=== PATIENT | female | born 1940 | race Caucasian/White ===

== ENCOUNTER 2019-07-22 08:25 | Outpatient (CLI) | payer MEDICARE, OTHER, MEDICAID, SELFPAY ==
--- NOTE | ~2019-07-22 | US_ITS ---
US retroperitoneal comp 07/22/2019 09:15 Procedure: Realtime transabdominal ultrasound of the kidneys and bladder. Indication: Renal lesion. Comparison: CT dated 01/27/2017 Findings: There is a possible right extrarenal pelvis. Otherwise right renal echotexture is normal wi thout focal mass. Right kidney measures 10.5 cm in length. There is a hypoechoic mass laterally in th e left kidney measuring 2.4 x 2.2 x 2.3 cm which is not definitive for cyst. No hydronephrosis is sathish ntified. Left kidney measures 10.7 cm. Bladder is not well distended for evaluation. Impression: 1: Hypoechoic 2.4 cm left renal mass. Recommend correlation with MRI to exclude solid component or en hancement. Reviewed, dictated and finalized at location A. [employer] Impression: 1: Hypoechoic 2.4 cm left renal mass. Recommend correlation with MRI to exclude solid component or enhancement.
== END 2019-07-22 08:26 | disposition home or self-care (01) ==
DX: N28.9 Disorder of kidney and ureter, unspecified (principal)
CPT/HCPCS: 76770

== ENCOUNTER 2019-11-16 11:41 | Outpatient (CLI) | payer MEDICARE, OTHER, MEDICAID, SELFPAY ==
--- NOTE | ~2019-11-16 | US_ITS ---
EXAMINATION: US pelvic complete DATE: 11/16/2019 12:30 INDICATION: Abnormal bleeding. History of complete hysterectomy. Comparison:Ultrasound dated 02/20/2018 TECHNIQUE: Multiple transabdominal and endovaginal sonographic images of the pelvis performed. FINDINGS: The uterus and ovaries are surgically absent. No abnormal pelvic masses or fluid collection s. IMPRESSION: 1. Unremarkable pelvic ultrasound post hysterectomy. Reviewed, dictated and finalized at location A.
[2019-11-16 12:03] LABS: Hematocrit 43.1 % (35.0-42.0); Hemoglobin 13.7 g/dL (11.7-13.8); Mean Corpuscular HGB Conc 31.8 g/dL (32.0-36.0); Mean Corpuscular Hemoglobin 31.4 pg (27.0-31.0); Mean Corpuscular Volume 98.9 fL (78.0-102.0); Mean Platelet Volume 8.2 fl (9.2-11.8); Platelet Count Result 296 K/mm3 (150-420); Red Blood Count 4.36 M/mm3 (4.20-5.40); Red Cell Distribution Width 14.1 % (11.6-14.4); White Blood Count 6.9 K/mm3 (4.8-10.8)
[2019-11-16 12:21] LABS: Add Urine Microscopic? YES; Appearance Urine Sl Cloudy (Clear); Bilirubin Urine Negative (Negative); Blood Urine 1+ (Negative); Color Urine Yellow (Yellow); Glucose Urine UA Negative (Negative); Ketones Urine Trace (Negative); Leukocyte Esterase Ur 1+ (Negative); Nitrate Urine Positive (Negative); Protein Urine 1+ (Negative); Specific Grav Ur >= 1.030 (1.010-1.020); Urobilinogen Urine 0.2 mg/dL (0.2-1.0)
[2019-11-16 12:25] LABS: INR 1.1; Prothrombin Time 11.1 Seconds (9.64-11.0)
[2019-11-16 12:31] LABS: Alanine Aminotransferase 27 U/L (14-59); Albumin Level 3.5 g/dL (3.4-5.0); Alkaline Phosphatase 103 U/L (46-116); Anion Gap 11.2 mmol/L (7-16); Aspartate Amino Transferase 23 U/L (15-37); Bilirubin,Total 0.3 mg/dL (0.00-1.00); Blood Urea Nitrogen 13 mg/dL (7-18); Calcium 8.9 mg/dL (8.5-10.1); Carbon Dioxide 31 mmol/L (21-32); Chloride 107 mmol/L (98-108); Estimated Glomerular Filt Rate > 60; Glucose 121 mg/dL (70-99); Osmolality Calculated 301 mOsm/kg (285-295); Potassium 4.2 mmol/L (3.5-5.1); Sodium 145 mmol/L (136-145); Total Protein 6.8 g/dL (6.4-8.2)
[2019-11-16 12:32] LABS: Bacteria Urine 1+ /hpf; Squamous Epithelial Cell Urine Moderate /hpf (Few); WBC Urine 16-20 /hpf (0-3)
[2019-11-16 12:33] LABS: Mucus Urine Few /lpf
[2019-11-16 13:08] LABS: BNP 187 pg/mL (0-100)
== END 2019-11-16 11:42 | disposition home or self-care (01) ==
LOC: CHSLAB 11:45
PROVIDERS: PCP Family Medicine; Visit Provider Family Medicine
DX: N93.9 Abnormal uterine and vaginal bleeding, unspecified (principal)
CPT/HCPCS: 36415; 76856; 80053; 81001; 83880; 85027; 85610

== ENCOUNTER 2019-11-26 08:19 | Outpatient (CLI) | payer MEDICARE, OTHER, MEDICAID, SELFPAY | END 2019-11-26 08:20 | disposition home or self-care (01) | PROVIDERS: PCP Family Medicine; Visit Provider Family Medicine | DX: I50.9 Heart failure, unspecified (principal) | CPT/HCPCS: 93306 ==

== ENCOUNTER 2019-12-25 06:19 | Outpatient (CLI) | payer MEDICARE, OTHER, MEDICAID, SELFPAY ==
[2019-12-25 17:27] LABS: SARS-CoV-2 RNA PCR Negative
== END 2019-12-25 06:20 | disposition home or self-care (01) ==
LOC: ANHCOVIDDT 06:20
PROVIDERS: PCP Family Medicine; Visit Provider Internal Medicine Gastroenterology
DX: Z01.812 Encounter for preprocedural laboratory examination (principal); Z11.59 Encounter for screening for other viral diseases
CPT/HCPCS: 87635; C9803; U0003

== ENCOUNTER 2019-12-27 08:49 | Outpatient (CLI) | payer MEDICARE, OTHER, MEDICAID, SELFPAY ==
--- NOTE | ~2019-12-27 | CT_ITS ---
EXAMINATION: CT abdomen wo/w con DATE: 12/27/2019 09:49 INDICATION: Left renal mass follow-up TECHNIQUE: Computed tomography (CT) of the abdomen was performed without and subsequently with 100 cc Omnipaque 350 intravenous contrast. Automated exposure control and iterative reconstruction techniqu e were employed. Exam dose: 1865.39 mGy-cm total exam DLP. COMPARISON: None. FINDINGS: Calcifications along the inferior aspect of the right breast implant. Scattered bilateral pulmonary calcified granulomas and calcified splenic granulomas, consistent with old granulomatous disease Cardiomegaly. No pericardial or pleural effusion. Small sliding hiatal hernia. Approximately 1.5 cm hepatic dome cyst. Status post cholecystectomy. No bile duct or pancreatic duct dilatation. No pancreatic mass lesion is evident. Normal splenic size. Normal morphology of the adrenal glands. There is an approximately 2.5 cm mildly septated cyst of the posteromedial aspect of the mid to upper left kidney. Several very small additional left renal cysts. Small right parapelvic renal cysts. No renal calculus or hydronephrosis of either kidney. There is prominent abdominal aortic location as well as some common iliac arterial calcifications. No abdominal aortic aneurysm. No intraperitoneal or retroperitoneal mass lesion or adenopathy or ascite s. Diverticula of the descending colon are identified. No CT evidence of diverticulitis. No bowel obstru ction, bowel wall thickening, pneumatosis or intraperitoneal free air. Small fat-containing umbilical hernia. There is prominent anterior wedging and loss of height at L1, with evidence of vertebroplasty at this level. Diffuse osteopenia. Degenerative disc disease throughout the lumbar and lumbosacral spine. There is p rominent degenerative change at the apophyseal joints with associated grade 1 anterolisthesis at L5-S 1. IMPRESSION: 2.5 cm mildly septated cysts of mid to upper left kidney; several smaller left renal cys ts and small right parapelvic renal cysts 1.5 cm hepatic cyst Diverticulosis of the descending colon Cardiomegaly Small sliding hiatal hernia Reviewed, dictated and finalized at Location A. Reviewed, dictated and finalized at location B. IMPRESSION: 2.5 cm mildly septated cysts of mid to upper left kidney; several smaller left renal cysts and small right parapelvic renal cysts 1.5 cm hepatic cyst Diverticulosis of the descending colon Cardiomegaly Small sliding hiatal hernia
[2019-12-27 09:18] LABS: Estimated Glomerular Filt Rate > 60
== END 2019-12-27 08:50 | disposition home or self-care (01) ==
PROVIDERS: PCP Family Medicine; Visit Provider Urology
DX: N28.89 Other specified disorders of kidney and ureter (principal)
CPT/HCPCS: 74170; Q9965

== ENCOUNTER 2019-12-28 03:21 | Day surgery (SDC) | payer MEDICARE, OTHER, MEDICAID, SELFPAY ==
[2019-12-21 11:56] VITALS: BMI 46.8
[2019-12-28 11:09] VITALS: BP 148/69; PULSE 77; RESP 17; TEMP 36.4; O2SAT 97
[2019-12-28] MEDS: LACTATED RINGERS 1,000 ML 150 ML IV CONT (11:16)
--- NOTE | 2019-12-28 11:44 | WPDANESEPPF ---
Anes - Initial Pre Proc Eval Procedure: Operation Date: 12/28/19 12:30 Proposed Procedures p Esophagogastroduodenoscopy - Fede Dominguez MD Date/Time: 12/28/19 11:44 Surgeon: Fede Dominguez MD Pre Op Diagnosis: Dysphagia Patient Data Age: 79 Gender: F Height: 5 ft 3 in Weight: 123.3 kg Last Vital Signs Temp 97.6 F 12/28/19 11:09 Pulse 77 12/28/19 11:09 Resp 17 12/28/19 11:09 BP 148/69 H 12/28/19 11:09 Pulse Ox 97 12/28/19 11:09 Allergies Allergy/AdvReac Type Severity Reaction Status Date / Time No Known Allergies Allergy Verified 12/28/19 11:07 Home Medications Medication Instructions Recorded Confirmed Type apixaban 5 mg tablet 5 mg PO BID #180 tablet 08/18/19 12/28/19 Rx oxybutynin chloride 5 mg 5 mg PO DAILY #90 tablet 08/26/19 12/28/19 Rx tablet,extended release 24 hr potassium chloride 10 mEq 20 meq PO DAILY #180 tablet 08/30/19 12/28/19 Rx tablet,extended release amlodipine 5 mg tablet 5 mg PO DAILY #90 tablet 10/27/19 12/28/19 Rx metoprolol succinate 100 mg 100 mg PO DAILY #90 tablet 12/06/19 12/28/19 Rx tablet,extended release 24 hr paroxetine HCl 20 mg tablet 20 mg PO DAILY #90 tablet 12/06/19 12/28/19 Rx esomeprazole magnesium [Nexium] 40 mg PO DAILY 12/21/19 12/28/19 History hydrocodone-acetaminophen 1 tablet PO BID PRN 12/21/19 12/28/19 History levothyroxine 75 mcg PO QAM 12/21/19 12/28/19 History Patient hx anesthesia problems: none Family hx anesthesia problems: none PMFSH Past Medical History Medical History (Updated 12/28/19 @ 11:44 by Waqas Blum MD) Esophageal stricture Fatty liver GERD (gastroesophageal reflux disease) History of esophageal stricture History of pulmonary embolism Hypertension Post-menopause bleeding Social History Social History Smoking status: Never smoker Gender identity (if verbalized by the patient): Female Anes - Eval Final PreProcedure Day of Procedure 12/28/19 11:44 Patient weight: morbidly obese Heart: regular rate and rhythm Lungs: clear to auscultation Airway: Mallampati scale class III Last oral intake: >/= 8 hours ASA classification: IV Emergent: no Anesthetic plan: proceed Anesthesia type and monitoring: general GIVS and standard monitoring Informed Consent: The patient's anesthetic plan and its attendant risks and benefits were discussed with the patient/family/POA. Questions were solicited and answers provided to the satisfaction of the patient/family/POA.
--- NOTE | 2019-12-28 12:22 | WPDHPUPDATE1 ---
History and Physical Update Update Date/Time: 12/28/19 12:22 History and Physical has been reviewed, including an updated exam of the patient. There are NO changes in the patient's condition. Risks, benefits, and alternatives have been discussed and questions answered. Patient agrees to proceed with procedure.
[2019-12-28 12:41] VITALS: BP 127/56; PULSE 63; RESP 26; O2SAT 98
[2019-12-28 12:51] VITALS: BP 143/62; PULSE 61; RESP 20; O2SAT 98
[2019-12-28 13:01] VITALS: BP 154/77; PULSE 61; RESP 18; O2SAT 98
== END 2019-12-28 13:10 | disposition home or self-care (01) ==
PROVIDERS: PCP Family Medicine; Visit Provider Internal Medicine Gastroenterology
PROC: 0DJ08ZZ Inspection of Upper Intestinal Tract, Via Natural or Artificial Opening Endoscopic (ICD-10-PCS; CPT 43235; principal; 2019-12-28 12:30)
DX: K21.9 Gastro-esophageal reflux disease without esophagitis (principal); K29.50 Unspecified chronic gastritis without bleeding; K44.9 Diaphragmatic hernia without obstruction or gangrene; K76.0 Fatty (change of) liver, not elsewhere classified; I10 Essential (primary) hypertension; Z86.711 Personal history of pulmonary embolism; Z79.01 Long term (current) use of anticoagulants; E66.01 Morbid (severe) obesity due to excess calories; Z68.42 Body mass index [BMI] 45.0-49.9, adult
CPT/HCPCS: 43239; 88305; J2704; J7120

== ENCOUNTER 2020-01-14 10:08 | Outpatient (CLI) | payer MEDICARE, SELFPAY ==
[2020-01-14 11:22] LABS: Blood Urea Nitrogen 15 mg/dL (7-18); Calcium 8.8 mg/dL (8.5-10.1); Carbon Dioxide 31 mmol/L (21-32); Chloride 105 mmol/L (98-108); Estimated Glomerular Filt Rate > 60; Glucose 111 mg/dL (70-99); Magnesium 1.8 mg/dL (1.8-2.4); Osmolality Calculated 295 mOsm/kg (285-295); Sodium 142 mmol/L (136-145); Thyroid Stimulating Hormone 1.63 uIU/mL (0.36-3.74)
== END 2020-01-14 10:09 | disposition home or self-care (01) ==
LOC: CHSLAB 10:10
PROVIDERS: PCP Family Medicine; Visit Provider Specialist
DX: I50.9 Heart failure, unspecified (principal); E03.9 Hypothyroidism, unspecified
CPT/HCPCS: 36415; 80048; 83735; 84436; 84443

== ENCOUNTER 2021-01-12 09:31 | Outpatient (CLI) | payer MEDICARE, MEDICAID, SELFPAY ==
--- NOTE | ~2021-01-12 | XR_ITS ---
XR chest 1V DATE: 01/12/2021 11:15 INDICATION: Shortness of breath with exertion TECHNIQUE: AP chest COMPARISON: 01/27/2017 AP chest 09/08/2015 2 view chest FINDINGS: Calcified right breast implant. Diffuse osteopenia. Bilateral glenohumeral osteoarthritis. Normal heart size. Aortic calcification. No pulmonary infiltrate or consolidation, pleural effusion or pulmonary vascular congestion or pneumo thorax is detected. Bilateral calcified hilar nodes. Scattered bilateral calcified pulmonary granulomas. Probable hiatal hernia. Diffuse osteopenia. Vertebroplasty at approximately L1. IMPRESSION: No active cardiopulmonary disease Aortic atherosclerosis Probable hiatal hernia Diffuse osteopenia Reviewed, dictated and finalized at location A.
--- NOTE | ~2021-01-12 | CT_ITS ---
EXAMINATION: CT abdomen pelvis wo/w con DATE: 01/12/2021 11:15 INDICATION: Left renal mass follow-up TECHNIQUE: Computed tomography (CT) of the abdomen and pelvis was performed without and subsequently with 100 cc Omnipaque 350 intravenous contrast. Automated exposure control and iterative reconstructi on technique were employed. Exam dose: 2378.67 mGy-cm total exam DLP. COMPARISON: 12/27/2019 CT abdomen FINDINGS: Calcified pulmonary granulomas and calcified splenic granulomas, consistent with old granul omatous disease. The lower lung zones are clear of infiltrate or consolidation. Calcified right breast implant. Moderate sliding hiatal hernia. Status post cholecystectomy. 1.5 cm hepatic cyst. No hepatic, splenic, pancreatic or adrenal space occupying mass lesion is noted otherwise. No bile duct or pancreatic duct dilatation. 2.5 cm circumscribed left renal mass with minus 4 Hounsfield units precontrast attenuation, 3 Hounsfi eld units post 7 contrast attenuation, consistent with a cyst. There are a couple of additional very small probable left renal cyst. Very small right renal cortical cyst. No other renal space occupying mass lesion is evident. No urinary tract calculus or hydroureteronephrosis. The urinary bladder is unremarkable. Status post hysterectomy. Diverticulosis of the colon; no CT evidence of diverticulitis. No bowel obstruction, bowel wall thick ening, pneumatosis or intraperitoneal free air. There is extensive calcification of the abdominal aorta. Normal caliber of the abdominal aorta; no ab dominal aortic aneurysm. No intraperitoneal or retroperitoneal or pelvic mass lesion or adenopathy or ascites. Fat-containing right inguinal hernia. Small fat-containing umbilical hernia. Vertebroplasty at burst fracture of L1. Diffuse osteopenia. Severe degenerative disc disease at L2-3 through L5-S1. There is degenerative change at the apophyseal joints with associated grade 1 anterolisthesis at L5-S 1. 2 cm duodenal diverticulum IMPRESSION: Stable 2.5 cm left renal cyst. Additional smaller bilateral renal cysts Moderate sliding hiatal hernia Status post cholecystectomy Stable 1.5 cm hepatic cyst Status post hysterectomy Diverticulosis of the colon; no CT evidence of diverticulitis Reviewed, dictated and finalized at Location A. Reviewed, dictated and finalized at location A.
[2021-01-12 10:20] LABS: Alanine Aminotransferase 31 U/L (14-59); Albumin Level 3.7 g/dL (3.4-5.0); Alkaline Phosphatase 108 U/L (46-116); Anion Gap 12 mmol/L (8-16); Aspartate Amino Transferase 17 U/L (15-37); Bilirubin,Total 0.4 mg/dL (0.00-1.00); Blood Urea Nitrogen 27 mg/dL (7-18); Carbon Dioxide 28 mmol/L (21-32); Chloride 105 mmol/L (98-108); Estimated Glomerular Filt Rate > 60; Glucose 129 mg/dL (70-99); Osmolality Calculated 307 mOsm/kg (285-295); Potassium 4.6 mmol/L (3.5-5.1); Sodium 145 mmol/L (136-145); Total Protein 6.8 g/dL (6.4-8.2)
== END 2021-01-12 09:32 | disposition home or self-care (01) ==
LOC: CHSIMG 09:51
PROVIDERS: PCP Family Medicine; Visit Provider Urology
DX: N28.89 Other specified disorders of kidney and ureter (principal)
CPT/HCPCS: 36415; 71045; 74178; 80053; Q9967

== ENCOUNTER 2021-04-10 13:49 | Outpatient (CLI) | payer MEDICARE, OTHER, SELFPAY ==
[2021-04-10 14:06] LABS: Basophils Absolute Auto 0.02 K/mm3 (0.00-0.10); Basophils Percent Auto 0.4 % (0.0-1.0); Eosinophils Percent Auto 1.8 % (1.0-6.0); Hematocrit 41.1 % (35.0-42.0); Hemoglobin 13.6 g/dL (11.7-13.8); Immature Granulocyte Absolute 0.03 K/mm3 (0.00-0.00); Immature Granulocyte Percent A 0.5 % (0.0-0.0); Lymphocytes Absolute Auto 1.53 K/mm3 (1.10-4.50); Lymphocytes Percent Auto 26.8 % (18.0-42.0); Mean Corpuscular HGB Conc 33.1 g/dL (32.0-36.0); Mean Corpuscular Hemoglobin 33.3 pg (27.0-31.0); Mean Corpuscular Volume 100.7 fL (78.0-102.0); Mean Platelet Volume 8.4 fl (9.2-11.8); Monocytes Absolute Auto 0.59 K/mm3 (0.10-0.90); Monocytes Percent Auto 10.4 % (2.0-11.0); Neutrophils Absolute Auto 3.4 K/mm3 (1.7-7.2); Neutrophils Percent Auto 60.1 % (50.0-70.0); Platelet Count Result 275 K/mm3 (150-420); Red Blood Count 4.08 M/mm3 (4.20-5.40); Red Cell Distribution Width 13.6 % (11.6-14.4); White Blood Count 5.7 K/mm3 (4.8-10.8)
[2021-04-10 14:20] LABS: INR 1.1; Prothrombin Time 11.4 Seconds (9.50-12.10)
[2021-04-10 15:08] LABS: Alanine Aminotransferase 49 U/L (14-59); Albumin Level 3.5 g/dL (3.4-5.0); Alkaline Phosphatase 111 U/L (46-116); Anion Gap 9 mmol/L (8-16); Aspartate Amino Transferase 29 U/L (15-37); Bilirubin,Total 0.3 mg/dL (0.00-1.00); Blood Urea Nitrogen 25 mg/dL (7-18); Calcium 8.5 mg/dL (8.5-10.1); Carbon Dioxide 29 mmol/L (21-32); Chloride 106 mmol/L (98-108); Estimated Glomerular Filt Rate 56; Free T4 Free Thyroxine 0.95 ng/dL (0.76-1.46); Glucose 122 mg/dL (70-99); Osmolality Calculated 303 mOsm/kg (285-295); Potassium 4.5 mmol/L (3.5-5.1); Sodium 144 mmol/L (136-145); Thyroid Stimulating Hormone 1.95 uIU/mL (0.36-3.74); Total Protein 6.4 g/dL (6.4-8.2)
== END 2021-04-10 13:50 | disposition home or self-care (01) ==
LOC: CHSLAB 13:55
PROVIDERS: PCP Nurse Practitioner Family; Visit Provider Nurse Practitioner Family
DX: E03.9 Hypothyroidism, unspecified (principal); R23.8 Other skin changes; Z79.01 Long term (current) use of anticoagulants
CPT/HCPCS: 36415; 80053; 83036; 84439; 84443; 85025; 85610

== ENCOUNTER 2021-08-03 13:57 | Outpatient (CLI) | payer MEDICARE, OTHER, MEDICAID, SELFPAY ==
--- NOTE | ~2021-08-03 | DEXA_ITS ---
Bone Density Report Name: FREDA CHILDS Age: 80 Sex: Female Ethnicity: White Date of : 1940 Indication: hyperparathyroidism; height loss; prior fracture; hysterectomy; Referring Provider: EVAN FLORENCE Study: Bone densitometry was performed. Exam Date: August 03, 2021 Accession number: [id number] Bone Density: Region BMD T-score Z-score Classification AP Spine(L2, L3, L4) 0.993 -0.8 2.0 Normal Femoral Neck (Left) 0.753 -0.9 1.5 Normal Total Hip (Left) 0.772 -1.4 0.7 Osteopenia Femoral Neck (Right) 0.848 0.0 2.3 Normal Total Hip (Right) 0.881 -0.5 1.6 Normal Femoral Neck Mean 0.800 -0.4 1.9 Normal Total Hip Mean 0.827 -0.9 1.2 Normal World Health Organization criteria for BMD impression classify patients as: Normal (T-score at or above -1.0), Osteopenia (T-score between -1.0 and -2.5), or Osteoporosis (T-score at or below -2.5). 10-year Fracture Risk: FRAX not reported because: Prior hip or vertebral fracture Clinical Information Provided by Patient: Have had a previous hip or vertebral fracture Has had a low trauma fracture Has used the following medications: Vitamin D, Calcium Has the following medical conditions: Hyperparathyroidism, Hysterectomy Patient maximum height was 66 Menopause Age: 40 No regular weight bearing exercise Onset of menses at age 13 Number of children 1 Impression: The patient has low bone mass, based on the Left Total Hip T-score. The patient has risk factors, including: previous fracture. Discussion: INCREASED RISK OF FRACTURE DUE TO HISTORY OF FRACTURE. The patient's previous fracture puts the patient at high risk of a future fracture. In untreated patients, the risk of osteoporotic fracture increases approximately two-fold for each 1.0 SD decrease in T-score. Low bone density is not the only risk factor for fracture; also consider factors such as patient's age, frailty or poor health, risk of falling, risk of injury, previous osteoporotic fracture, family history of osteoporosis, cigarette smoking, low body weight, etc. Not everyone with a low trauma fracture has osteoporosis; osteomalacia and other metabolic bone disorders should also be considered. Patients who have osteoporosis should be evaluated for specific diseases and conditions (secondary causes) that may cause or contribute to bone loss and fracture risk. National Osteoporosis Foundation (NOF) recommends pharmacologic intervention for patients with a prior hip or vertebral fracture regardless of BMD T-score. The patient should follow a healthful lifestyle (good nutrition with adequate calcium and vitamin D, and appropriate weight-bearing exercise). Follow-Up: Consider a repeat BMD and Vertebral Fracture Assessment (VFA) exam in 2 years or sooner if medically necessary
== END 2021-08-03 13:58 | disposition home or self-care (01) ==
LOC: CHSIMG 14:03
PROVIDERS: PCP Family Medicine; Visit Provider Family Medicine
DX: Z78.0 Asymptomatic menopausal state (principal); M85.80 Other specified disorders of bone density and structure, unspecified site
CPT/HCPCS: 77080

== ENCOUNTER 2021-08-21 13:40 | Outpatient (CLI) | payer MEDICARE, OTHER, MEDICAID, SELFPAY ==
--- NOTE | ~2021-08-21 | XR_ITS ---
XR wrist LT w scaphoid DATE: 08/21/2021 14:04 INDICATION: Fall one week ago. Medial left elbow pain, knot on posterior wrist. TECHNIQUE: 4 views COMPARISON: None FINDINGS: Diffuse osteopenia. There is osteoarthritis at the triscaphe and to a greater extent first carpometacarpal joint. There i s osteophytic change at the metacarpal joints and particularly at the included first interphalangeal joint. No fracture or dislocation, periosteal reaction or bone destruction. No erosive change or chondrocalcinosis. IMPRESSION: Polyarticular osteoarthritis Osteopenia Reviewed, dictated and finalized at location A. T DESK PERSON
--- NOTE | ~2021-08-21 | XR_ITS ---
XR elbow LT min 3V DATE: 08/21/2021 14:04 INDICATION: Fall one week ago. Medial left elbow pain TECHNIQUE: 4 views COMPARISON: None FINDINGS: Diffuse osteopenia. There is osteoarthritic change including prominent joint space between the capitellum and radial head as well as radial neck spurring. No fracture or dislocation or joint effusion, periosteal reaction or bone destruction. IMPRESSION: Osteoarthritis Reviewed, dictated and finalized at location A. [place] PHARMACIST IMPRESSION: Osteoarthritis
== END 2021-08-21 13:41 | disposition home or self-care (01) ==
LOC: CHSIMG 13:44
PROVIDERS: PCP Family Medicine; Visit Provider Family Medicine
DX: M25.532 Pain in left wrist (principal); M25.522 Pain in left elbow
CPT/HCPCS: 73080; 73110

== ENCOUNTER 2022-01-10 09:59 | Outpatient (CLI) | payer MEDICARE, OTHER, SELFPAY ==
--- NOTE | ~2022-01-10 | CT_ITS ---
EXAMINATION: CT abdomen pelvis wo/w con DATE: 01/10/2022 11:39 INDICATION: Kidney mass. TECHNIQUE: Computed tomography (CT) of the abdomen and pelvis was performed without and with 100 mL O mnipaque 350 intravenous contrast. Automated exposure control and iterative reconstruction technique were employed. The dose-length product was 2470.00 mGy-cm. COMPARISON: CT abdomen and pelvis 01/12/2021 FINDINGS: The visualized portions of the lung bases demonstrate calcified pulmonary nodules and calci fied right hilar lymph nodes, consistent with old granulomatous disease. No pleural effusion. The hea rt size is normal. No pericardial effusion. There is a moderate-sized sliding hiatal hernia. There is a 15 mm cyst in the liver. There are changes of cholecystectomy. Calcifications in the spleen are co nsistent with old granulomatous disease. The pancreas and adrenal glands are normal. There are cysts in the kidneys measuring up to 2.8 cm on the left. There is diverticulosis of the colon. There is mil d fat stranding adjacent to a diverticulum of sigmoid colon, consistent with diverticulitis. There ar e no dilated loops of bowel. The appendix is nonvisualized. There are no pathologically enlarged lymp h nodes. There is no free intraperitoneal fluid. There is prominent fat in the inguinal canals that m ay be hernias. There is severe lumbar spondylosis. There is a chronic burst fracture of L1 with bennett es of vertebroplasty. IMPRESSION: 1. Benign cysts in the kidneys. 2. Mild sigmoid diverticulitis. No perforation or abscess. 3. Moderate-sized sliding hiatal hernia. Reviewed, dictated and finalized at location A.
[2022-01-10 10:39] LABS: Estimated Glomerular Filt Rate > 60
== END 2022-01-10 10:00 | disposition home or self-care (01) ==
LOC: CHSIMG 10:04
PROVIDERS: PCP Family Medicine; Visit Provider Urology
DX: N28.89 Other specified disorders of kidney and ureter (principal)
CPT/HCPCS: 74178; Q9967

== ENCOUNTER 2022-01-17 08:41 | Emergency (ER) | payer MEDICARE, OTHER, MEDICAID, SELFPAY ==
[2022-01-17 09:11] VITALS: BP 192/78; PULSE 80; RESP 20; TEMP 36.8; O2SAT 98
--- NOTE | 2022-01-17 09:17 | ED.LOWEXIN ---
HPI - Extremity Injury (Lower) General Chief Complaint: Wound/Laceration Stated Complaint: TOENAIL HALF OFF Time Seen by Provider: 01/17/22 09:12 Source: patient and RN notes reviewed Mode of arrival: ambulatory Limitations: no limitations History of Present Illness complaint: other ( Avulsion of toenail) Type of Injury: blunt Place: home Severity: mild Relieving factors: rest Exacerbating factors: palpation Context: direct blow ( accidentally hit her other foot with her right great toe causing the nail to avulse) and walking Associated symptoms: ambulatory Other symptoms: none Related Data Home Medications Medication Instructions Recorded Confirmed hydrocodone 10 mg-acetaminophen 1 tablet PO BID PRN Pain 12/21/19 01/17/22 325 mg tablet furosemide 20 mg tablet (Lasix) 40 mg PO QAM 07/13/21 01/17/22 apixaban 5 mg tablet (Eliquis) 5 mg PO BID 01/17/22 01/17/22 bimatoprost 0.01 % eye drops 1 drp EACH EYE DAILY 01/17/22 01/17/22 (Lumigan) famotidine 20 mg tablet 20 mg PO BID 01/17/22 01/17/22 irbesartan 150 mg tablet 150 mg PO DAILY 01/17/22 01/17/22 metoprolol succinate 100 mg 100 mg PO DAILY 01/17/22 01/17/22 tablet,extended release 24 hr paroxetine HCl 20 mg tablet 20 mg PO DAILY 01/17/22 01/17/22 potassium chloride 10 mEq 10 meq PO DAILY 01/17/22 01/17/22 tablet,extended release Allergies Allergy/AdvReac Type Severity Reaction Status Date / Time No Known Allergies Allergy Verified 01/17/22 09:19 Review of Systems Review of Systems: All systems reviewed & are unremarkable except as noted in HPI and below PMFSH Past Medical History Medical History Fatty liver Hematochezia History of pulmonary embolism Hypertension Post-menopause bleeding Surgical History Surgical History History of cholecystectomy History of rotator cuff surgery Right side. Family History Family History Sister Diabetes mellitus Father Cerebrovascular accident Social History Social History Smoking status: Never smoker Alcohol intake: never Additional living arrangements comments: . 1 Child. 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 Gender identity (if verbalized by the patient): Female Exam Const: General: healthy appearing, no acute distress and alert Nutritional Appearance: well nourished Orientation/consciousness: patient oriented x3 Limitations: no limitations HENMT: Head: normal to inspection Ears: external ears normal Eyes: Conjunctivae: conjunctivae normal Pupils: Equal, round and reactive pupils present EOM: EOMs intact bilaterally Neck: Neck: normal visual inspection Resp: Effort & Inspection: normal respiratory effort Auscultation: clear to auscultation bilaterally Cardio: Rate: regular rate Rhythm: regular rhythm GI: GI Palp: Yes Soft to palpation and No Tenderness to palpation present (GI) Auscultation: normal bowel sounds Back/Spine/Pelvis: Cervical Spine: cervical ROM normal Thoracic/Lumbar Spine: thoraco-lumbar ROM normal Skin: General skin exam: normal color Wounds: no wounds Neuro: General: patient oriented x3, moves all extremities, no focal motor deficits and CN's II-XI intact bilaterally Speech: normal speech Gait exam (Neuro): Normal gait present Extrem: General: normal exam except as noted and no clubbing, cyanosis or edema Right lower extremity: foot Details: abnormal to inspection Details: other ( right great toe nail is nearly 100% avulsed.) Psych: Mental Status: mental status grossly normal Affect: normal affect Attitude: cooperative Course Course Emergency Course: I was able to grasp the nail and then remove it from its remaining base without difficulty and very little pain to the patient. T
[2022-01-17 09:49] VITALS: BP 160/81; PULSE 106; RESP 20; TEMP 36.9; O2SAT 96
== END 2022-01-17 09:50 | disposition home or self-care (01) ==
PROVIDERS: Emergency Provider Emergency Medicine; PCP Family Medicine
DX: S91.209A Unspecified open wound of unspecified toe(s) with damage to nail, initial encounter (principal); W22.8XXA Striking against or struck by other objects, initial encounter
CPT/HCPCS: 99282

== ENCOUNTER 2022-07-02 12:27 | Outpatient (CLI) | payer MEDICARE, OTHER, MEDICAID, SELFPAY ==
--- NOTE | ~2022-07-02 | US_ITS ---
EXAMINATION: US carotid duplex BI DATE: 07/02/2022 12:57 INDICATION: Transient cerebral ischemic attack. TECHNIQUE: Grayscale, color Doppler, and pulsed Doppler images of the cervical carotid arteries were obtained. The degree of vessel stenosis is placed in one of the following categories: normal, <50%, 5 0-69%, >=70% but less than near-occlusion, near-occlusion, or total occlusion. Note that percent sten osis relative to normal distal artery lumen diameter is indirectly measured from velocity measurement s as described by Kevin, et al. Radiology 2003; 229:[id number]. COMPARISON: None. FINDINGS: RIGHT: The right common carotid artery (CCA) peak systolic velocity (PSV) is 64 cm/s. The right internal car otid artery (ICA) PSV is 76 cm/s. The right ICA end-diastolic velocity (EDV) is 20 cm/s. The right IC A/CCA PSV ratio is 1.2. Grayscale and color Doppler images yield an estimate of <50% diameter reducti on from plaque in the ICA. The external carotid artery (ECA) PSV is 96 cm/s. There is antegrade flow in the right vertebral artery. LEFT: The left CCA PSV is 76 cm/s. The left ICA PSV is 123 cm/s. The left ICA EDV is 31 cm/s. The left ICA/ CCA PSV ratio is 1.6. Grayscale and color Doppler images yield an estimate of <50% diameter reduction from plaque in the ICA. The ECA PSV is 66 cm/s. There is antegrade flow in the left vertebral artery . IMPRESSION: 1. <50% stenosis in the right internal carotid artery. 2. <50% stenosis in the left internal carotid artery. Reviewed, dictated and finalized at location A. E COMMER[employer] MARKETING ANALYST
== END 2022-07-02 12:28 | disposition home or self-care (01) ==
LOC: CHSIMG 12:28
PROVIDERS: PCP Family Medicine; Visit Provider Family Medicine
DX: I65.23 Occlusion and stenosis of bilateral carotid arteries (principal)
CPT/HCPCS: 93880

== ENCOUNTER 2022-07-08 14:40 | Outpatient (CLI) | payer MEDICARE, OTHER, MEDICAID, SELFPAY ==
--- NOTE | 2022-07-08 14:46 | ECHO_ITS ---
Patient Info Name: Promise Fierro Age: 81 years : 1940 Gender: Female Ht: 63 in Wt: 270 lbs BSA: 2.41 m2 HR: 76 bpm BP: 159 / 56 mmHg Technical Quality: Good Exam Date: 07/08/2022 3:34 PM Exam Location: [facility] Patient Status: Outpatient Admit Date: 07/08/2022 Staff Ordering Physician: Pierre Acuna DO Machine Silver Stripper: Sunday Tsai RDCS, RT Attending Provider: Pierre Acuna DO Referring Physician: Kalpana VELAZQUEZ; Exam Type: CA echo doppler color flow Study Info Indications I50.9 - Heart failure, unspecified Complete two-dimensional, color flow and Doppler transthoracic echocardiogram is performed. History/Risk Factors Hypertension: Yes Dyslipidemia: No Congenital Heart Disease (CHD): No Peripheral Arterial Disease (PAD): No Myocardial Infarction (OK): No Chronic Lung Disease: No Obesity: Yes Renal Disease: No Coronary Artery Disease (CAD) No Congestive Heart Failure (CHF): Hx CHF Cardiomyopathy/LV Systolic Dysfunction: No Diabetes Mellitus: No COPD: No Cerebrovascular Disease: No Family History: Diabetes Mellitus DVT Treatment: Apixaban Deep Vein Thrombosis (DVT): Chronic Dialysis: None Frailty Scale (CSHA): 4: Vulnerable Prior Interventions Pacemaker: No PCI: No CABG: No Valve Surgery: No ICD: No PV Intervention: None Heart Transplant: No Summary 1. Complete two-dimensional, color flow and Doppler transthoracic echocardiogram is performed. 2. Left ventricular chamber dimension is normal. 3. Left ventricular systolic function is normal, estimated at 60-65%. 4. There is mildly increased left ventricular wall thickness. 5. The left ventricular diastolic function is abnormal. 6. E/e' 12 is mildly elevated. 7. Left atrial chamber dimension is mildly enlarged. 8. There is mild aortic valve sclerosis. 9. The mitral valve has mildly calcified annulus. 10. There is trace pulmonic regurgitation. Left Ventricle E/e' 12 is mildly elevated. Left ventricular chamber dimension is normal. Left ventricular systolic function is normal, estimated at 60-65%. There is mildly increased left ventricular wall thickness. The left ventricular diastolic function is abnormal. Right Ventricle Right ventricular chamber dimension is normal. Right ventricular systolic function is normal. Left Atria Left atrial chamber dimension is mildly enlarged. Right Atria Right atrial chamber dimension is normal. Aortic Valve The aortic valve is trileaflet. There is mild aortic valve sclerosis. There is no aortic valve stenosis. There is no aortic valve regurgitation. Pulmonic Valve There is trace pulmonic regurgitation. Mitral Valve The mitral valve has mildly calcified annulus. There is no mitral valve stenosis. There is no mitral valve regurgitation. Tricuspid Valve There is no tricuspid valve regurgitation. Pericardium/Pleural There is no pericardial effusion. Inferior Vena Cava Normal inferior vena cava with >50% collapse upon inspiration consistent with normal right atrial pressure, 5 mmHg. Aorta The aortic root size at the sinus of Valsalva is normal. Left Ventricular Outflow Tract Name Value Normal LVOT
== END 2022-07-08 14:41 | disposition home or self-care (01) ==
LOC: CHSIMG 14:42
PROVIDERS: PCP Family Medicine; Visit Provider Family Medicine
DX: G45.9 Transient cerebral ischemic attack, unspecified (principal); I08.0 Rheumatic disorders of both mitral and aortic valves
CPT/HCPCS: 93306

== ENCOUNTER 2022-10-15 14:11 | Outpatient (CLI) | payer MEDICARE, SELFPAY ==
[2022-10-15 14:26] LABS: Hematocrit 41.1 % (35.0-42.0); Hemoglobin 13.5 g/dL (11.7-13.8); Mean Corpuscular HGB Conc 32.8 g/dL (32.0-36.0); Mean Corpuscular Hemoglobin 33.8 pg (27.0-31.0); Mean Corpuscular Volume 102.8 fL (78.0-102.0); Mean Platelet Volume 8.2 fl (9.2-11.8); Platelet Count Result 281 K/mm3 (150-420); Red Cell Distribution Width 14.3 % (11.6-14.4); White Blood Count 6.3 K/mm3 (4.8-10.8)
[2022-10-15 15:05] LABS: Alanine Aminotransferase 12 U/L (14-59); Albumin Level 3.6 g/dL (3.4-5.0); Alkaline Phosphatase 119 U/L (46-116); Anion Gap 9 mmol/L (8-16); Aspartate Amino Transferase 22 U/L (15-37); Bilirubin,Total 0.3 mg/dL (0.00-1.00); Blood Urea Nitrogen 19 mg/dL (7-18); Carbon Dioxide 31 mmol/L (21-32); Chloride 103 mmol/L (98-108); Cholesterol 267 mg/dL (0-200); Estimated Glomerular Filt Rate > 60; Glucose 107 mg/dL (70-99); HDL Direct 56 mg/dL (40-60); LDL Cholesterol Calculated 169 mg/dL (<130); Osmolality Calculated 298 mOsm/kg (285-295); Potassium 4.7 mmol/L (3.5-5.1); Sodium 143 mmol/L (136-145); Total Protein 6.6 g/dL (6.4-8.2); Triglycerides 208 mg/dL (0-150)
[2022-10-15 15:06] LABS: Thyroid Stimulating Hormone Reflex 2.88 u/IU/mL (0.36-3.74)
== END 2022-10-15 14:12 | disposition home or self-care (01) ==
LOC: CHSLAB 14:13
PROVIDERS: PCP Family Medicine; Visit Provider Family Medicine
DX: E11.9 Type 2 diabetes mellitus without complications (principal); E03.9 Hypothyroidism, unspecified; I10 Essential (primary) hypertension
CPT/HCPCS: 36415; 80053; 80061; 84443; 85027

== ENCOUNTER 2022-12-26 08:58 | Outpatient (CLI) | payer MEDICARE, OTHER, MEDICAID, SELFPAY ==
--- NOTE | ~2022-12-26 | CT_ITS ---
CT of the Abdomen and Pelvis: Indication: Left renal mass Technique: 2.5 mm axial scans were obtained through the abdomen and pelvis prior to and following in travenous administration of 100 cc of Omnipaque 350. Dose reduction technique was used on this scan b y utilizing automated exposure control and iterative reconstruction technique. The dose-length produc t (DLP) was 2253.08 mGy-cm. COMPARISON: 01/10/2022 Findings: Scans through the lung bases demonstrate moderate hiatal hernia and calcified bibasilar pu lmonary granulomas. Stable small hepatic cyst present. The spleen, pancreas, and adrenal glands are within normal limits. Simple renal cyst are unchanged. Cholecystectomy clips are present. There are atherosclerotic calcif ications of the aorta. No lymphadenopathy. No bowel obstruction or bowel wall thickening. There is no evidence to suggest acute appendicitis. Images through the pelvis were performed. Urinary bladder unremarkable. Patient is post hysterectomy. No adnexal mass seen. No ascites. Compression fracture of L1 is present with vertebroplasty cement. Impression: Benign renal cysts. Moderate hiatal hernia. Reviewed, dictated and finalized at [facility]. Impression: Benign renal cysts. Moderate hiatal hernia.
[2022-12-26 09:44] LABS: Estimated Glomerular Filt Rate 60
== END 2022-12-26 08:59 | disposition home or self-care (01) ==
LOC: CHSIMG 09:01
PROVIDERS: PCP Family Medicine; Visit Provider Urology
DX: N28.89 Other specified disorders of kidney and ureter (principal); K44.9 Diaphragmatic hernia without obstruction or gangrene
CPT/HCPCS: 74178; Q9967

== ENCOUNTER 2023-05-29 15:30 | Outpatient (CLI) | payer MEDICARE, SELFPAY ==
[2023-05-29 16:30] LABS: Thyroid Stimulating Hormone Reflex 1.67 u/IU/mL (0.36-3.74)
== END 2023-05-29 15:31 | disposition home or self-care (01) ==
LOC: CHSLAB 15:32
PROVIDERS: PCP Nurse Practitioner Family; Visit Provider Nurse Practitioner Family
DX: I10 Essential (primary) hypertension (principal)
CPT/HCPCS: 36415; 84443

== ENCOUNTER 2023-12-18 11:19 | Outpatient (CLI) | payer MEDICARE, OTHER, MEDICAID, SELFPAY ==
--- NOTE | ~2023-12-18 | DEXA_ITS ---
? Bone Density Report? Name:? FREDA CHILDS Patient ID:??? [id number] Age:? 83 Sex:? Female Ethnicity:? White Date of : 1940 Indication: hyperparathyroidism; height loss; prior fracture; hysterectomy; Referring Provider: EVAN FLORENCE Study: Bone densitometry was performed. Exam Date: December 18, 2023 Accession number: [id number] Bone Density: Region? BMD??? T-score? Z-score?? Classification Femoral Neck (Left)? 0.695?? -1.4? 1.1? Osteopenia Total Hip (Left)? 0.799?? -1.2? 1.1? Osteopenia Femoral Neck (Right)? 0.827?? -0.2? 2.2?Normal Total Hip (Right)? 0.848?? -0.8? 1.5? Normal Femoral Neck Mean? 0.761?? -0.8? 1.7? Normal Total Hip Mean? 0.824?? -1.0? 1.3? Normal World Health Organization criteria for BMD impression classify patients as: Normal (T-score at or above -1.0), Osteopenia (T-score between -1.0 and -2.5), or Osteoporosis (T-score at or below -2.5). 10-year Fracture Risk: FRAX not reported because: ? Prior hip or vertebral fracture Clinical Information Provided by Patient: Have had a previous hip or vertebral fracture Has had a low trauma fracture Has used the following medications: Vitamin D, Calcium, multi vitamin Has the following medical conditions: Hyperparathyroidism, Hysterectomy Patient maximum height was 66 Menopause Age: 40 No regular weight bearing exercise Onset of menses at age 13 Number of children 1 Impression: The patient has low bone mass, based on the Left Femoral Neck T- score. The patient has risk factors, including: previous fracture. Discussion: INCREASED RISK OF FRACTURE DUE TO HISTORY OF FRACTURE. The patient's previous fracture puts the patient at high risk of a future fracture. In untreated patients, the risk of osteoporotic fracture increases approximately two-fold for each 1.0 SD decrease in T-score.? Low bone density is not the only risk factor for fracture; also consider factors such as patient's age, frailty or poor health, risk of falling, risk of injury, previous osteoporotic fracture, family history of osteoporosis, cigarette smoking, low body weight, etc.? Not everyone with a low trauma fracture has osteoporosis; osteomalacia and other metabolic bone disorders should also be considered. Patients who have osteoporosis should be evaluated for specific diseases and conditions (secondary causes) that may cause or contribute to bone loss and fracture risk. National Osteoporosis Foundation (NOF) recommends pharmacologic intervention for patients with a prior hip or vertebral fracture regardless of BMD T-score. The patient should follow a healthful lifestyle (good nutrition with adequate calcium and vitamin D, and appropria
[2023-12-18 11:37] LABS: Basophils Absolute Auto 0.03 K/mm3 (0.00-0.10); Basophils Percent Auto 0.6 % (0.0-1.0); Eosinophils Absolute Auto 0.09 K/mm3 (0.02-0.50); Eosinophils Percent Auto 1.8 % (1.0-6.0); Hematocrit 38.2 % (35.0-42.0); Hemoglobin 12.5 g/dL (11.7-13.8); Immature Granulocyte Absolute 0.01 K/mm3 (0.00-0.00); Immature Granulocyte Percent A 0.2 % (0.0-0.0); Lymphocytes Absolute Auto 1.37 K/mm3 (1.10-4.50); Mean Corpuscular HGB Conc 32.7 g/dL (32-36); Mean Corpuscular Hemoglobin 32.7 pg (27.0-31.0); Mean Platelet Volume 8.2 fl (9.2-11.8); Monocytes Absolute Auto 0.49 K/mm3 (0.10-0.90); Monocytes Percent Auto 9.6 % (2.0-11.0); Neutrophils Absolute Auto 3.09 K/mm3 (1.70-7.20); Neutrophils Percent Auto 60.8 % (50.0-70.0); Platelet Count Result 234 K/mm3 (150-420); Red Blood Count 3.82 M/mm3 (4.20-5.40); Red Cell Distribution Width 13.9 % (11.6-14.4); White Blood Count 5.1 K/mm3 (4.8-10.8)
[2023-12-18 11:55] LABS: Hemoglobin A1C 5.7 % (<5.7)
[2023-12-18 12:17] LABS: Alanine Aminotransferase 31 U/L (14-59); Albumin Level 3.3 g/dL (3.4-5.0); Alkaline Phosphatase 111 U/L (46-116); Anion Gap 6 mmol/L (4-12); Aspartate Amino Transferase 21 U/L (15-37); Bilirubin,Total 0.4 mg/dL (0.00-1.00); Blood Urea Nitrogen 19 mg/dL (7-18); Calcium 8.8 mg/dL (8.5-10.1); Carbon Dioxide 30 mmol/L (21-32); Chloride 104 mmol/L (98-108); Cholesterol 129 mg/dL (0-200); Estimated Glomerular Filt Rate > 60; Glucose 150 mg/dL (70-99); HDL Direct 62 mg/dL (40-60); LDL Cholesterol Calculated 49 mg/dL (<130); Osmolality Calculated 295 mOsm/kg (285-295); Potassium 4.2 mmol/L (3.5-5.1); Sodium 140 mmol/L (136-145); Total Protein 5.9 g/dL (6.4-8.2); Triglycerides 88 mg/dL (0-150)
[2023-12-18 12:22] LABS: Thyroid Stimulating Hormone Reflex 2.12 u/IU/mL (0.36-3.74)
== END 2023-12-18 11:20 | disposition home or self-care (01) ==
LOC: CHSIMG 11:22
PROVIDERS: Nurse Practitioner Family; PCP Family Medicine; Visit Provider Family Medicine
DX: I10 Essential (primary) hypertension (principal); E03.9 Hypothyroidism, unspecified; R73.03 Prediabetes; Z78.0 Asymptomatic menopausal state; M85.89 Other specified disorders of bone density and structure, multiple sites
CPT/HCPCS: 36415; 77080; 80053; 80061; 83036; 84443; 85025

== ENCOUNTER 2024-06-05 09:46 | Emergency (ER) | payer MEDICARE, OTHER, SELFPAY ==
--- NOTE | ~2024-06-05 | CT_ITS ---
EXAMINATION: CT brain wo con DATE: 06/05/2024 10:24 INDICATION: Headache TECHNIQUE: Computed tomography (CT) of the head was performed without intravenous contrast. Sagittal and coronal reconstructions were performed. The mA was adjusted according to patient size. Iterative reconstruction technique was employed. The dose-length product was 605.33 mGy-cm. COMPARISON: None FINDINGS: No acute intracranial hemorrhage, acute infarction or abnormal extra axial fluid collection. There is mild scattered white matter hypoattenuation consistent with chronic small vessel ischemic disease. S ymmetric prominence of the sulci consistent with mild age-appropriate diffuse cerebral volume loss. V entricles are normal and symmetric. No mass/mass effect. Changes of bilateral intraocular lens replac ement. The orbits, paranasal sinuses and mastoid air cells are normal. IMPRESSION: 1. Normal aging brain. Reviewed, dictated and finalized at location A. 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 Normal aging brain.
--- NOTE | ~2024-06-05 | XR_ITS ---
EXAMINATION: XR chest 1V portable DATE: 06/05/2024 11:59 INDICATION: Cough. Covid positive. TECHNIQUE: frontal view of the chest was obtained. COMPARISON: Chest radiograph dated 01/12/2021 FINDINGS: Chronic eventration along the right hemidiaphragm. Calcified nodules in the bilateral mid lung zones along with calcified bilateral hilar and mediastinal lymph nodes consistent with old granulomatous di sease. Heart size is normal. Moderate-sized hiatal hernia. Capsular calcifications at bilateral breas t implants. Moderate bilateral glenohumeral osteoarthritis. IMPRESSION: 1. No acute cardiopulmonary disease. 2. Moderate-sized hiatal hernia. Reviewed, dictated and finalized at location A. TENANCE WORKER
[2024-06-05 09:48] VITALS: BP 156/42; PULSE 62; RESP 20; TEMP 36.6; O2SAT 96
--- NOTE | 2024-06-05 09:49 | ED.HA ---
HPI - Headache General Chief Complaint: Upper Respiratory Infection Stated Complaint: headache; cough Time Seen by Provider: 06/05/24 09:48 Source: patient Mode of arrival: ambulatory Limitations: no limitations History of Present Illness HPI Narrative: 83-year-old female with a history of anxiety /depression, hypertension, dyslipidemia, pulmonary embolism, osteoarthritis involving multiple joints, chronic low back pain and chronic opiate use presents to the ED with a 2 day history of -- headache. no prior history of headaches. The headache is frontal in location. No photophobia phonophobia. -- nausea without any vomiting /abdominal pain /diarrhea. The patient has intermittent nausea and diarrhea 2nd to her chronic opiate use -- nonproductive cough. No shortness of breath -- running nose. no sore throat. No fever or chills. MD elicited complaint: headache Onset (ago): day(s) ( Two days) Onset description: gradually Location: frontal Severity: moderate Quality & Timing: aching Exacerbating factors: none Relieving factors: nothing Context: occurred at rest Associated symptoms: nausea and cough Treatments prior to arrival: none Related Data Home Medications ?Medication ?Instructions ?Recorded ?Confirmed ?Last Taken ?Type hydrocodone 10 mg-acetaminophen 1 tablet PO BID PRN Pain 12/21/19 06/05/24 Unknown History 325 mg tablet furosemide 20 mg tablet (Lasix) 40 mg PO QAM 07/13/21 06/05/24 Unknown History bimatoprost 0.01 % eye drops 1 drp EACH EYE DAILY 01/17/22 06/05/24 Unknown History (Lumigan) irbesartan 150 mg tablet 150 mg PO DAILY 01/17/22 06/05/24 Unknown History Allergies Allergy/AdvReac Type Severity Reaction Status Date / Time No Known Allergies Allergy Verified 06/05/24 10:07 Review of Systems Review of Systems: All systems reviewed & are unremarkable except as noted in HPI and below Constitutional: Constitutional: Reports as per HPI, Reports no additional constitutional complaints and Reports chills Eyes: Eyes: Reports as per HPI and Reports no additional eye complaints ENT: Reports system reviewed and no additional complaints, except as documented, Reports as per HPI and Reports nasal congestion Cardiovascular: Cardiovascular: Reports as per HPI and Reports no additional cardiovascular complaints Respiratory: Respiratory: Reports as per HPI and Reports no additional respiratory complaints Gastrointestinal: Gastrointestinal: Reports as per HPI, Reports no additional gastrointestinal complaints and Reports nausea Genitourinary: Genitourinary: Reports no additional female genitourinary complaints Musculoskeletal: Musculoskeletal: Reports back pain and Reports arthralgias Comments: chronic arthritic pains. Chronic low back pain status post bilateral total knee replacement Integumentary/Breasts: Skin/Breast: Reports system reviewed and no additional complaints, except as docu and Reports as per HPI Neurologic: Reports system reviewed and no additional complaints, except as documented, Reports as per HPI and Reports headache(s) Psychiatric: Psychiatric: Reports no additional psychiatric complaints, Reports as per HPI, Reports anxiety and Reports depression Endocrine: Endocrine: Reports no additional endocrine complaints and Reports as per HPI Hematologic/Lymphatic: Hematologic/Lymphatic: Reports no additional hematologic/lymphatic complaints and Reports as per HPI Allergic/Immunologic: Allergic/Immunologic: Reports no additional allergic/immunologic complaints and Reports as per HPI PMFSH Past Medical History Medical History Hypertension Fatty liver History of pulmonary embolism Hematochezia Post-menopause bleeding Surgical History Surgical History Status post bilateral knee replacements Hx of breast implants, bilateral History of hysterectomy History of rotator cuff surgery Right side. History of cholecystectomy Family History Family History Sister Diabetes mellitus Father Cerebrovascular accident Social History Social History Smoking status: Never smoker Alcohol intake: current Alcohol use details: seldom use Substance use: never Substance use type: does not use Do You Feel Safe in your Home?: Yes Lack of Transportation: No Lack of Food: Never True Current Housing: I Have Housing Concerned About Future Housing: No Difficulty Paying Gas/Electric Bills: No Difficulty Paying for Meds: No Currently Unemployed: No Education: High School Diploma/GED Difficulty w/ Childcare or Family Care: No Living arrangements: alone Additional living arrangements comments: . 1 Child. 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 Gender identity (if verbalized by the patient): Female Exam Narrative: blood pressure is stable. Afebrile. Oxygen saturation of 96% on room air with a respiratory rate of 20. Const: General: healthy appearing and no acute distress Nutritional Appearance: well nourished Orientation/consciousness: patient oriented x3 Limitations: no limitations HENMT: Head: normal to inspection Ears: external ears normal and TM's normal bilaterally Face/Nose/Sinus: Normal external nose present Face and sinus: normal facial exam Mouth: Yes Normal oral and palatal mucosa present Throat: posterior oropharynx normal Eyes: Conjunctivae: conjunctivae normal Pupils: Equal, round and reactive pupils present EOM: EOMs intact bilaterally Direct Ophthalmoscopy: no photophobia Neck: Neck: normal visual inspection, no lymphadenopathy and no meningeal signs Chest: Chest palpation & inspection: normal inspection of the chest Resp: Effort & Inspection: normal respiratory effort Auscultation: clear to auscultation bilaterally Cardio: Rate: regular rate Rhythm: regular rhythm GI: GI Palp: Yes Soft to palpation Auscultation: normal bowel sounds Other: No tenderness/ rigidity / rebound. : General: Yes no CVA tenderness Back/Spine/Pelvis: Back: no CVA tenderness Skin: General skin exam: normal color Rashes: no rashes Wounds: no wounds Neuro: General: patient oriented x3, moves all extremities, no meningeal signs, no focal motor deficits and CN's II-XI intact bilaterally Cranial nerves: Yes Nystagmus not present Speech: normal speech Gait exam (Neuro): Normal gait present Extrem: General: normal to inspection and edema Psych: Mental Status: mental status grossly normal Affect: normal affect Attitude: cooperative Course Course Emergency Course: Headache- will get a CT of the head and an ESR-- CT of the head did not show any acute findings. ESR was noted to be normal. upper respiratory tract symptoms with cough and running nose. Would do RSV/influenza / COVID-- Tested positive for COVID. nausea with occasional diarrhea possibly secondary to opiate use chest x-ray did not show any infiltrates. Patient refused pack Slo-bid as she feels her symptoms are already improving. Vital Signs Vital signs: Vital Signs Temperature 36.6 C 06/05/24 09:48 Pulse Rate 62 06/05/24 09:48 Respiratory Rate 20 06/05/24 09:48 Blood Pressure 156/42 H 06/05/24 09:48 Pulse Oximetry 96 06/05/24 09:48 Oxygen Delivery Room Air 06/05/24 09:48 Temperature 37.2 C 06/05/24 10:45 Pulse Rate 78 06/05/24 10:45 Respiratory Rate 18 06/05/24 10:45 Blood Pressure 141/62 H 06/05/24 10:45 Pulse Oximetry 97 06/05/24 10:45 Oxygen Delivery Room Air 06/05/24 10:45 MDM - Headache MDM Narrative Medical decision making narrative: Upper respiratory tract infection /COVID headache Differential Diagnosis Differential diagnosis: Likely subarachnoid hemorrhage Medical Records Attestation: I reviewed the patient's medical records. Lab Data Attestation: I reviewed the patient's lab results. 06/05/24 10:28 06/05/24 10:28 Labs: Lab Results 06/05/24 Range/Units 10:28 WBC 8.6 (4.8-10.8) K/mm3 RBC 4.11 L (4.20-5.40) M/mm3 Hgb 13.2 (11.7-13.8) g/dL Hct 39.9 (35.0-42.0) % MCV 97.1 (78.0-102.0) fL MCH 32.1 H (27.0-31.0) pg MCHC 33.1 (32-36) g/dL RDW 14.6 H (11.6-14.4) % Plt Count 223 (150-420) K/mm3 MPV 8.6 L (9.2-11.8) fl Immature Gran % (Auto) 0.5 H (0.0-0.0) % Neut % (Auto) 75.7 H (50.0-70.0) % Lymph % (Auto) 9.7 L (18.0-42.0) % [place] % (Auto) 13.7 H (2.0-11.0) % Eos % (Auto) 0.2 L (1.0-6.0) % Baso % (Auto) 0.2 (0.0-1.0) % Lymph # (Auto) 0.83 L (1.10-4.50) K/mm3 [place] # (Auto) 1.17 H (0.10-0.90) K/mm3 Eos # (Auto) 0.02 (0.02-0.50) K/mm3 Baso # (Auto) 0.02 (0.00-0.10) K/mm3 Abs Immat Gran (auto) 0.04 H (0.00-0.00) K/mm3 Absolute Neuts (auto) 6.47 (1.70-7.20) K/mm3 Absolute Nucleated RBC 0.00 (0.00-0.00) K/mm3 Nucleated RBC % 0.0 (0-0.0) % ESR 10 (0-20) mm/hr Sodium 138 (136-145) mmol/L Potassium 3.8 (3.5-5.1) mmol/L Chloride 101 (98-108) mmol/L Carbon Dioxide 31 (21-32) mmol/L Anion Gap 6 (4-12) mmol/L BUN 16 (7-18) mg/dL Creatinine 0.81 (0.55-1.02) mg/dL Estim Creat Clear Calc 54 ml/min Estimated GFR > 60 (59 - ) Glucose 133 H (70-99) mg/dL Calculated Osmolality 289 (285-295) mOsm/kg Lactic Acid 1.4 (0.4-2.0) mmol/L Calcium 8.9 (8.5-10.1) mg/dL Total Bilirubin 0.6 (0.00-1.00) mg/dL AST 26 (15-37) U/L ALT 27 (14-59) U/L Alkaline Phosphatase 111 (46-116) U/L Troponin I 13.4 (0.00-60.4) ng/L Total Protein 6.4 (6.4-8.2) g/dL Albumin 3.3 L (3.4-5.0) g/dL Lipase 25 (16-77) U/L Influenza A (RT-PCR) Negative (Negative) Influenza B (RT-PCR) Negative (Negative) RSV (RT-PCR) Negative (Negative) SARS-CoV-2 RNA (RT-PCR) Positive A (Negative) Discharge Plan Discharge Clinical Impression: COVID Upper respiratory infection Qualifiers: URI type: unspecified viral URI Qualified Code(s): J06.9 - Acute upper respiratory infection, unspecified Headache Qualifiers: Headache type: unspecified Headache chronicity pattern: acute headache Intractability: not intractable Qualified Code(s): R51.9 - Headache, unspecified Patient Disposition: Home, Self-Care Condition: Stable Instructions: Antibiotic Form, Acute Headache (ED), COVID-19 (Coronavirus Disease 2019) (ED) Patient Language: Latvian Prescriptions: No Action irbesartan 150 mg tablet 150 mg PO DAILY Lumigan 0.01 % drops 1 drp EACH EYE DAILY furosemide [Lasix] 20 mg tablet 40 mg PO QAM hydrocodone-acetaminophen 10-325 mg tablet 1 tablet PO BID PRN (Reason: Pain) alendronate [Fosamax] 70 mg tablet 70 mg PO WEEKLY Qty: 12 3RF potassium chloride 10 mEq tablet extended release See Rx Instructions .ROUTE .COMPLEX Qty: 180 0RF Dose Instruction: TAKE TWO TABLETS BY MOUTH DAILY Rx Instructions: TAKE TWO TABLETS BY MOUTH DAILY paroxetine HCl 20 mg tablet See Rx Instructions .ROUTE .COMPLEX Qty: 90 0RF Dose Instruction: TAKE ONE TABLET BY MOUTH DAILY Rx Instructions: TAKE ONE TABLET BY MOUTH DAILY Eliquis 5 mg tablet See Rx Instructions .ROUTE .COMPLEX Qty: 180 0RF Dose Instruction: TAKE ONE TABLET BY MOUTH TWICE A DAY Rx Instructions: TAKE ONE TABLET BY MOUTH TWICE A DAY atorvastatin 40 mg tablet See Rx Instructions .ROUTE .COMPLEX Qty: 90 0RF Dose Instruction: TAKE ONE TABLET BY MOUTH DAILY Rx Instructions: TAKE ONE TABLET BY MOUTH DAILY famotidine 20 mg tablet See Rx Instructions .ROUTE .COMPLEX Qty: 180 0RF Dose Instruction: TAKE TWO TABLETS BY MOUTH DAILY Rx Instructions: TAKE TWO TABLETS BY MOUTH DAILY levothyroxine 75 mcg tablet See Rx Instructions .ROUTE .COMPLEX Qty: 90 2RF Dose Instruction: TAKE ONE TABLET BY MOUTH EVERY MORNING Rx Instructions: TAKE ONE TABLET BY MOUTH EVERY MORNING metoprolol succinate 100 mg tablet extended release 24 hr See Rx Instructions .ROUTE .COMPLEX Qty: 90 2RF Dose Instruction: TAKE ONE TABLET BY MOUTH DAILY Rx Instructions: TAKE ONE TABLET BY MOUTH DAILY Follow-up/Referrals: Pierre Acuna DO [Primary Care Provider] - Time of Disposition: 12:25
[2024-06-05 10:05] VITALS: O2SAT 98
[2024-06-05 10:33] LABS: Basophils Absolute Auto 0.02 K/mm3 (0.00-0.10); Basophils Percent Auto 0.2 % (0.0-1.0); Eosinophils Absolute Auto 0.02 K/mm3 (0.02-0.50); Eosinophils Percent Auto 0.2 % (1.0-6.0); Hematocrit 39.9 % (35.0-42.0); Hemoglobin 13.2 g/dL (11.7-13.8); Immature Granulocyte Absolute 0.04 K/mm3 (0.00-0.00); Immature Granulocyte Percent A 0.5 % (0.0-0.0); Lymphocytes Absolute Auto 0.83 K/mm3 (1.10-4.50); Lymphocytes Percent Auto 9.7 % (18.0-42.0); Mean Corpuscular HGB Conc 33.1 g/dL (32-36); Mean Corpuscular Hemoglobin 32.1 pg (27.0-31.0); Mean Corpuscular Volume 97.1 fL (78.0-102.0); Mean Platelet Volume 8.6 fl (9.2-11.8); Monocytes Absolute Auto 1.17 K/mm3 (0.10-0.90); Monocytes Percent Auto 13.7 % (2.0-11.0); Neutrophils Absolute Auto 6.47 K/mm3 (1.70-7.20); Neutrophils Percent Auto 75.7 % (50.0-70.0); Platelet Count Result 223 K/mm3 (150-420); Red Blood Count 4.11 M/mm3 (4.20-5.40); Red Cell Distribution Width 14.6 % (11.6-14.4); White Blood Count 8.6 K/mm3 (4.8-10.8)
[2024-06-05 10:45] VITALS: BP 141/62; PULSE 78; RESP 18; TEMP 37.2; O2SAT 97
[2024-06-05 10:47] LABS: Alanine Aminotransferase 27 U/L (14-59); Albumin Level 3.3 g/dL (3.4-5.0); Alkaline Phosphatase 111 U/L (46-116); Anion Gap 6 mmol/L (4-12); Aspartate Amino Transferase 26 U/L (15-37); Bilirubin,Total 0.6 mg/dL (0.00-1.00); Blood Urea Nitrogen 16 mg/dL (7-18); Calcium 8.9 mg/dL (8.5-10.1); Carbon Dioxide 31 mmol/L (21-32); Chloride 101 mmol/L (98-108); Estimated CRCL calculation 54 ml/min; Estimated Glomerular Filt Rate > 60; Glucose 133 mg/dL (70-99); Lipase 25 U/L (16-77); Osmolality Calculated 289 mOsm/kg (285-295); Potassium 3.8 mmol/L (3.5-5.1); Sodium 138 mmol/L (136-145); Total Protein 6.4 g/dL (6.4-8.2)
[2024-06-05 10:50] LABS: Lactic Acid Reflex 1.4 mmol/L (0.4-2.0)
[2024-06-05 10:52] LABS: Troponin I 13.4 ng/L (0.00-60.4)
[2024-06-05 11:09] LABS: SARS-CoV-2 RNA PCR Positive (Negative)
[2024-06-05 11:12] LABS: Influenza A QL RT-PCR Negative (Negative); Influenza B QL RT-PCR Negative (Negative); RSV RNA, RT-PCR Negative (Negative)
[2024-06-05 11:29] LABS: Erythrocyte Sedimentation Rate 10 mm/hr (0-20)
[2024-06-05 11:45] VITALS: BP 130/61; PULSE 68; RESP 16; TEMP 36.5; O2SAT 98
[2024-06-05 12:35] VITALS: PULSE 72; RESP 16; O2SAT 98
--- OUTSIDE RECORDS SUMMARY | 2024-06-09 02:22 | XMS_ITS | Encounter Summary ---
Author Organization [facility] - [facility] Address [address] [place] [address]. 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 No / Unsure 02/28/2022 10:58 AM CDT documented as of this encounter Plan of Treatment Not on file documented as of this encounter Visit Diagnoses Not on filedocumented in this encounter Care Teams Conductor Symphonic Orchestra Relationship Specialty Start Date End Date Pierre Acuna DO [address] [place] [address] PCP - General FAMILY PRACTICE 01/03/20 Pierre Acuna DO [address] [place] [address] FAMILY PRACTICE 12/03/19 Dick Wu MD [address] [place] [address] Consulting Physician CARDIOVASCULAR DISEASE 12/03/19 documented as of this encounter
--- OUTSIDE RECORDS SUMMARY | 2024-06-09 02:22 | XMS_ITS | Encounter Summary ---
Author Organization [facility] - [facility] Address [address] [place] [address]. 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
--- OUTSIDE RECORDS SUMMARY | 2024-06-09 02:22 | XMS_ITS | Clinical Summary ---
Author Organization [facility] Address [address] [place] [address] Care Team Providers Care Chute Builder Name Role Phone Pierre Acuna Primary Care Provider [phone] Source Comments [facility],non-owned Affiliates and Associated Physician Practices is amultiple site organization consisting of ambulatory clinics and hospital sitesin [place], [place], [place] and [place]. This disclosure is being madepursuant to the Care Everywhere program and may not contain all information available regarding this patient. Last updated 18.[facility] Allergies Active Allergy Reactions Criticality Noted Date Comments Cristian Inhibitors Cough 01/05/2020 Cough Cough Clarithromycin Unknown 01/05/2020 Ezetimibe Unknown 01/05/2020 Hmg-Coa-R Inhibitors Unknown 01/05/2020 Medications * Be aware that medications may not be up to date on this document. Alwaysverify current medications with the patient. Medication Sig Dispensed Refills Start Date End Date Status Apixaban (Eliquis DVT/PE Starter Pack) 5 MG tablet Take by mouth 2 times daily Active famotidine (Pepcid) 20 MG tablet Take by mouth 2 times daily Active furosemide (Lasix) 40 MG tablet Take 1 (one) tablet by mouth once daily Each morning Active irbesartan (Avapro) 150 MG tablet Take 1 (one) tablet by mouth once daily Each morning Active bimatoprost (Lumigan) 0.03 % ophthalmic solution 1 (one) drop at bedtime Active metoprolol succinate XL 24hr (Toprol XL) 100 MG tablet Take 1 (one) tablet by mouth once daily Active PARoxetine (Paxil) 20 MG tablet Take 1 (one) tablet by mouth once daily Active atorvastatin (Lipitor) 40 MG tablet Take 1 (one) tablet by mouth once daily Active HYDROcodone-acetami nophen ([place]) 10-325 MG tabletIndications:C losed fracture of multiple ribs of left side, initial encounter Take 1 (one) tablet by mouth 3 times daily 11/05/2023 Active bacitracin ointment Apply to affected area 3 times daily 11/05/2023 Active polyethylene glycol 3350 (Miralax) 17 g packet Take 17 (seventeen) g by mouth once daily 11/05/2023 Active zinc gluconate 50 MG tablet Take 1 (one) tablet by mouth once daily 11/08/2023 Active vitamin D3 (Cholecalciferol) 25 MCG (1000 UNITS) tablet Take 2 (two) tablets by mouth once daily 11/08/2023 Active ascorbic acid (Vitamin C) 500 MG tablet Take 1 (one) tablet by mouth once daily 11/08/2023 Active amLODIPine (Norvasc) 5 MG tablet TAKE ONE TABLET BY MOUTH ONCE DAILY 30 tablet 11/05/2023 11/04/2024 Active lidocaine (Lidoderm) 5 % patch APPLY 2 PATCHES TO SKIN EVERY 24 HOURS. APPLY PATCH TO MOST PAINFUL AREA AND REMOVE AFTER 12 HOURS. MAY REAPPLY A NEW PATCH 12 HOURS LATER. 12 patch 11/05/2023 11/04/2024 Active nystatin (Mycostatin) 732568 UNIT/GM powder APPLY TO AFFECTED AREA 2 TIMES A DAY 15 g 11/05/2023 11/04/2024 Active polyethylene glycol 3350 (Miralax) 17 GM/SCOOP powder MIX AND TAKE 1 CAPFUL (17 GM) BY MOUTH ONCE DAILY 238 g 11/05/2023 11/04/2024 Active levothyroxine (Synthroid) 75 MCG tablet TAKE ONE TABLET BY MOUTH ONCE DAILY 30 tablet 11/05/2023 11/04/2024 Active Active Problems Problem Noted Date Diagnosed Date Papules 11/07/2023 Acute traumatic pain 11/03/2023 Scalp laceration 11/03/2023 Trauma 11/02/2023 Other closed fracture of tho racic vertebra, unspecified thoracic vertebral level, initial encounter 11/02/2023 Closed fracture of multiple ribs of left side, initial encounter 11/02/2023 Allergies 11/01/2023 Immunizations Name Administration Dates Next Due TDAP (7yrs+) 11/01/2023 Family History Medical History Relation Name Comments CAD (Coronary Artery Disease) Father Cancer - Uterine Mother Diabetes - Type 2 Sister Relation Name Status Comments Father Mother Sister Social History Tobacco Use Types Packs/Day Years Used Date Smoking Tobacco: Never Smokeless Tobacco: Never Tobacco Cessation:Counseling Given: Not Answered Alcohol Use Standard Drinks/Week Comments Yes 1 (1 standard drink = 0.6 oz pur e alcohol) at weddings AUDIT-C Answer Date Recorded Q1: How often do you have a drink containing alcohol? Never 11/03/2023 Q2: How many drinks containi ng alcohol do you have on a typical day when you are drinking? Patient does not drink Q3: How often do you have si x or more drinks on one occasion? Never 11/03/2023 Overall Financial Resource Strain (CARDIA) Answe r Date Recorded How hard is it for you to pa y for the very basics like food, housing, medical care, and heating? Not hard at all 11/03/2023 [facility] - Occupational Stress Questionnaire Answer Date Recorded Do you feel stress - tense, restless, nervous, or anxious, or unable to sleep at night because your mind is troubled all the time - these days? Not at all 11/03/2023 Hunger Vital Sign Answer Date Recorded Within the past 12 months, y ou worried that your food would run out before you got the money to buy more. Never true 11/03/19 24 Within the past 12 months, t he food you bought just didn't last and you didn't have money to get more. Never true 11/03/2023 PRAPARE - Transportation Answer Date Re corded In the past 12 months, has l ack of transportation kept you from medical appointments or from getting medications? No 10/21 In the past 12 months, has l ack of transportation kept you from meetings, work, or from getting things needed for daily living? No 11/03/2023 Housing Stability Vital Sign Answer Kavin e Recorded In the last 12 months, was t here a time when you were not able to pay the mortgage or rent on time? No 11/03/2023 In the last 12 months, how many places have you lived? 1 11/03/2023 In the last 12 months, was t here a time when you did not have a steady place to sleep or slept in a mcc (including now)? No 11/03/2023 Sex and Gender Information Value Date Recorded Sex Assigned at Not on file Gender Identity Not on file Sexual Orientation Not on file Last Filed Vital Signs Vital Sign Reading Time Taken Comments Blood Pressure 161/87 01/12/2024 10:33 AM CDT Pulse 59 01/12/2024 10:33 AM CDT Temperature 36.1 ??C (97 ??F) 01/12/2024 10: 33 AM CDT Respiratory Rate 18 11/08/2023 4:36 PM CDT Oxygen Saturation 93% 01/12/2024 10: 33 AM CDT Inhaled Oxygen Concentration 21% 11/06/2023 7 :20 PM CDT Weight 123.6 kg (272 lb 6.4 oz) 024 10:33 AM CDT Height 160 cm (5' 3 ) 01/12/2024 10:33 AM CDT Body Mass Index 48.25 01/12/2024 10:33 AM CDT Plan of Treatment Health Maintenance Due Date Last Done Comments BONE DENSITY TESTING 1940 MEDICARE AWV ? 12 MONTHS 1940 ZOSTER VACCINE (1 of 2) 1990 PNEUMOCOCCAL VACCINE 65+ (1 of 1 - PCV) 2005 Respiratory Syncytial Virus (RSV) Vaccine Pt: or over 60 yrs (1 - 1-dose 75+ series) 10/01/2015 DEPRESSION SCREENING 06/23/2023 COVID-19 VACCINE ( season) 2024 06/02/2023, 07/12/2021, 09/19/2020, Additional history exists INFLUENZA VACCINE (#1) 2024 3, 07/02/2021, 05/04/2020, Additional history exists DTAP/TDAP/TD VACCINES (2 - Td or Tdap) 10/31/2033 11/01/2023 HEPATITIS B VACCINE Aged Out No longe r eligible based on patient's age to complete this topic HIB VACCINE Aged Out No longer eligi ble based on patient's age to complete this topic HPV VACCINE Aged Out No longer eligi ble based on patient's age to complete this topic MENINGOCOCCAL VACCINE Aged Out No torres ariel eligible based on patient's age to complete this topic Advance Directives * Full Code (Latest Code Status on File) Date Activated Date Inactivated Comments 11/02/2023 1:41 AM 11/08/2023 6:46 PM Care Teams Chute Builder Relationship Specialty Start Date End Date Pierre Acuna DO [address] [place] [id number] PCP - General Family Medicine 11/02/23
--- OUTSIDE RECORDS SUMMARY | 2024-06-09 02:22 | XMS_ITS | Encounter Summary ---
Author Organization [facility] Address [address] [place] [address] Care Team Providers Care Renovator Machine Operator Name Role Phone Pierre Acuna DO Primary Care Provider [phone] Encounter Details Date Type Department Care Team (Latest Contact Info) Description 01/12/2024 9:55 AM CDT - 01/12/2024 11:59 PM CDT Hospital Encounter [facility] DIAGNOSTIC RAD OP [address] [place] [address] Zhou Gutiérrez MD [address] [place] [id number] Neurosurgery Discharge Disposition: Home or Self Care Social History Tobacco Use Types Packs/Day Years Used Date Smoking Tobacco: Never Smokeless Tobacco: Never Alcohol Use Standard Drinks/Week Comments Yes 1 (1 standard drink = 0.6 oz pur e alcohol) at [facility]UDIT-C Answer Date Recorded Q1: How often [...] and heating? Not hard at all 11/03/2023 [facility] [place] [facility] Occupat ional Health - Occupational Stress [...] place to sleep or slept in a fci (including now)? No 11/03/2023 Sex and Gender Information Value Date Recorded Sex Assigned at Not on file Gender Identity Not on file Sexual Orientation Not on file documented as of this encounter Functional Status Functional Status Response Date of Assess ment Is person deaf or have serious hearing difficult y? Yes 11/03/2023 Is person blind or have serious difficulty seein g? No 11/03/2023 Does person have serious dif ficulty walking/climbing stairs? Yes 11/03/2023 Does person have difficulty dressing/bathing? No 11/03/2023 Does person have difficulty doing errands alone? No 11/03/2023 Cognitive Status Response Date of Assessm ent Does person have difficulty concentrating/remembering/making decisions? No 11/03/2023 documented as of this encounter Medications at Time of Discharge Medication Sig Dispensed Refills Start Date End Date amLODIPine (Norvasc) 5 MG tablet TAKE ONE TABLET BY MOUTH ONCE DAILY 30 tablet 11/05/2023 11/04/2024 Apixaban (Eliquis DVT/PE Starter Pack) 5 MG tablet Take by mouth 2 times daily ascorbic acid (Vitamin C) 500 MG tablet Take 1 (one) tablet by mouth once daily 11/08/2023 atorvastatin (Lipitor) 40 MG tablet Take 1 (one) tablet by mouth once daily bacitracin ointment Apply to affected area 3 times daily 11/05/2023 bimatoprost ([place]) 0.03 % ophthalmic solution 1 (one) drop at bedtime famotidine (Pepcid) 20 MG tablet Take by mouth 2 times daily furosemide (Lasix) 40 MG tablet Take 1 (one) tablet by mouth once daily Each morning HYDROcodone-acetaminoph en ([place]) 10-325 MG tabletIndications:Close d fracture of multiple ribs of left side, initial encounter Take 1 (one) tablet by mouth 3 times daily 11/05/2023 irbesartan (Avapro) 150 MG tablet Take 1 (one) tablet by mouth once daily Each morning levothyroxine (Synthroid) 75 MCG tablet TAKE ONE TABLET BY MOUTH ONCE DAILY 30 tablet 11/05/2023 11/04/2024 lidocaine (Lidoderm) 5 % patch APPLY 2 PATCHES TO SKIN EVERY 24 HOURS. APPLY PATCH TO MOST PAINFUL AREA AND REMOVE AFTER 12 HOURS. MAY REAPPLY A NEW PATCH 12 HOURS LATER. 12 patch 11/05/2023 11/04/2024 metoprolol succinate XL 24hr (Toprol XL) 100 MG tablet Take 1 (one) tablet by mouth once daily nystatin (Mycostatin) 248326 UNIT/GM powder APPLY TO AFFECTED AREA 2 TIMES A DAY 15 g 11/05/2023 11/04/2024 PARoxetine (Paxil) 20 MG tablet Take 1 (one) tablet by mouth once daily polyethylene glycol 3350 (Miralax) 17 g packet Take 17 (seventeen) g by mouth once daily 11/05/2023 polyethylene glycol 3350 (Miralax) 17 GM/SCOOP powder MIX AND TAKE 1 CAPFUL (17 GM) BY MOUTH ONCE DAILY 238 g 11/05/2023 11/04/2024 vitamin D3 (Cholecalciferol) 25 MCG (1000 UNITS) tablet Take 2 (two) tablets by mouth once daily 11/08/2023 zinc gluconate 50 MG tablet Take 1 (one) tablet by mouth once daily 11/08/2023 documented as of this encounter Plan of Treatment Not on file documented as of this encounter Procedures Procedure Name Priority Date/Time Associated Diagnosis Comments XR THORACIC SPINE 3VW STAT 01/12/2024 10:13 AM CDT Closed fracture of multiple ribs of left side, initial encounter documented in this encounter Results * XR THORACIC SPINE 3VW (01/12/2024 10:13 AM CDT) Anatomical Region Laterality Modality Spine Radiographic Anahy ging 01/12/2024 1:29 PM CDT Impressions 01/12/2024 1:35 PM CDT IMPRESSION: Stable mild to moderate compression deformity of T6 Satisfactory appearing lateral alignment. Patient status post prior vertebroplasty of L1. Borderline loss of height of T12 appearing similar. > Interpreting Provider: Dick Carnes MD on 01/12/2024 1:35 PM Narrative 01/12/2024 1:35 PM CDT PROCEDURE: ??XR THORACIC SPINE 3VW DATE/TIME OF EXAM: ??01/12/2024 10:16 AM CLINICAL INFORMATION: None relevant/not provided if blank. Indication: S22.42XA: Closed fracture of multiple ribs of left side, initial encounter Additional History: COMPARISON: 3 view thoracic spine study dated 11/02/[address] scan of the thoracic and lumbar spine dated 11/01/2023. FINDINGS: Full length AP and lateral views of the thoracic spine were obtained as well as a lateral view of the cervicothoracic junction with the patient in a brace. Patient has undergone prior vertebroplasty of L1 appearing similar. The bones are diffusely demineralized. There is a stable mild to moderate compression deformity of T6. No other obvious significant thoracic spine compression deformity is identified within the limitations of the demineralization of the osseous structures. The lateral alignment appears satisfactory. The AP alignment appears to be relatively intact, however the overlying radiopaque brace obscures some detail of the left side of the thoracic spine. Procedure Note Dick Carnes MD - 01/12/2024 PROCEDURE: XR THORACIC SPINE 3VW DATE/TIME OF EXAM: 01/12/2024 10:16 AM CLINICAL INFORMATION: None relevant/not provided if blank. Indication: S22.42XA: Closed fracture of multiple ribs of left side, initial encounter Additional History: COMPARISON: 3 view thoracic spine study dated 11/02/[address] scan of thethoracic and lumbar spine dated 11/01/2023. FINDINGS: Full length AP and lateral views of the thoracic spine were obtained as well as a lateral view of the cervicothoracic junction withthe patient in a brace. Patient has undergone prior vertebroplasty of L1 appearing similar. The bones are diffusely demineralized. There is a stable mild tomoderate compression deformity of T6. No other obvious significant thoracic spine compression deformity is identified within the limitations of the demineralization of the osseous structures. The lateral alignment appears satisfactory. The AP alignment appears nghia relatively intact, however the overlying radiopaque brace obscures some detail of the left side of the thoracic spine. IMPRESSION: Stable mild to moderate compression deformity of T6 Satisfactory appearing lateral alignment. Patient status post prior vertebroplasty of L1. Borderline loss of height of T12 appearing similar. > Interpreting Provider: Dick Carnes MD on 01/12/2024 1:35 PM Zhou Gutiérrez MD DIAGNOSTIC IMAGI NG ORDERABLES documented in this encounter Visit Diagnoses Diagnosis Closed fracture of multiple ribs of left side, initial encounter documented in this encounter Care Teams Renovator Machine Operator Relationship Specialty Start Date End Date Pierre Acuna DO [address] [place] [id number] PCP - General Family Medicine 11/02/23 documented as of this encounter
--- OUTSIDE RECORDS SUMMARY | 2024-06-09 02:22 | XMS_ITS | Encounter Summary ---
Author Organization [facility] Address [facility] [facility] [place] [address] [place] [address] Care Team Providers Care Senior Management Consultant Name Role Phone Pierre Acuna DO Unavailable [phone] Dick Wu MD Unavailable Unavailabl e Pierre Acuna DO Primary Care Provider [phone] Reason for Visit * Reason Onset Date Comments Reschedule 01/02/2022 Encounter Details Date Type Department Care Team ([facility] Contact Info) Description 01/02/2022 Telephone [facility] [address] [place] [address] Vickie Dalton, ASSISTANT CHILD CARE TEACHER, ROSS CARRIER DRIVER-C [address] [facility] [address] [place] [address] Reschedule Social History Tobacco Use Types Packs/Day Years Used Date Smoking Tobacco: Never Smokeless Tobacco: Never Comments Unknown Sex and Gender Information Value Date Recorded Sex Assigned at Not on file Legal Sex Female 5:57 PM HEALTH CARE SOCIAL WORKER Gender Identity Not on file Sexual Orientation Not on file documented as of this encounter Progress Notes * Tana Delarosa RN - 01/02/2022 5:22 PM CDT Promise called and asked to reschedule her 01/04/2022 follow up appointment with Brenden Dalton due to transportation issues. Rescheduled to 01/28/2022 at 1330 at [facility]. documented in this encounter Plan of Treatment Not on file documented as of this encounter Visit Diagnoses Not on filedocumented in this encounter Care Teams Senior Management Consultant Relationship Specialty Start Date End Date Pierre Acuna DO [address] [place] [address] PCP - General FAMILY PRACTICE 01/03/20 Pierre Acuna DO [facility] [place] [address] FAMILY PRACTICE 12/03/19 Dick Wu MD [facility] [place] [address] Consulting Physician CARDIOVASCULAR DISEASE 12/03/19 documented as of this encounter
--- OUTSIDE RECORDS SUMMARY | 2024-06-09 02:22 | XMS_ITS | Encounter Summary ---
Author Organization [facility] Address [address] [place] [address]. [place] [address] [place] [address] Care Team Providers Care Director Sales And Marketing Name Role Phone Pierre Acuna DO Unavailable [phone] Dick Wu MD Unavailable Unavailabl e Pierre Acuna DO Primary Care Provider [phone] Reason for Visit * Reason Onset Date Comments Reschedule 01/24/2022 Encounter Details Date Type Department Care Team ([facility] Contact Info) Description 01/24/2022 Telephone [facility] [address] [place] [address] Vickie Dalton, ZENA, MATHS TUTOR-C [address] [facility] [address] [place] [address] Reschedule Social History Tobacco Use Types Packs/Day Years Used Date Smoking Tobacco: Never Smokeless Tobacco: Never Comments Unknown Sex and Gender Information Value Date Recorded Sex Assigned at Not on file Legal Sex Female 5:57 PM INFORMATION SYSTEMS DIRECTOR Gender Identity Not on file Sexual Orientation Not on file documented as of this encounter Progress Notes * Mahi Lin LPN - 01/24/2022 9:39 AM CDT Pt called in to reschedule upcoming appointment to a later date. Rescheduled appointment for 02/14/2022 @ 1:30 pm. Pt v/u and voiced no other concerns or questions at this time. documented in this encounter Plan of Treatment Not on file documented as of this encounter Visit Diagnoses Not on filedocumented in this encounter Care Teams Director Sales And Marketing Relationship Specialty Start Date End Date Pierre Acuna DO [address] [place] [address] PCP - General FAMILY PRACTICE 01/03/20 Pierre Acuna DO [address] [place] [address] FAMILY PRACTICE 12/03/19 Dick Wu MD [address] [place] [address] Consulting Physician CARDIOVASCULAR DISEASE 12/03/19 documented as of this encounter
--- OUTSIDE RECORDS SUMMARY | 2024-06-09 02:22 | XMS_ITS | Encounter Summary ---
Author Organization [facility] Address [address] [place] [address]. [place] [address] [place] [address] Care Team Providers Care Nail Specialist Name Role Phone Pierre Acuna DO Unavailable Dick Wu MD Unavailable Unavailabl e Pierre Acuna DO Primary Care Provider Encounter Details Date Type Department Care Team (Late st Contact Info) Description 02/21/2022 Orders Only [facility] [address] [place] [address] Dick Wu MD Social History Tobacco Use Types Packs/Day Years Used Date Smoking Tobacco: Never Smokeless Tobacco: Never Comments Unknown Sex and Gender Information Value Date Recorded Sex Assigned at Not on file Legal Sex Female 5:57 PM LUMBER BEARER Gender Identity Not on file Sexual Orientation Not on file COVID-19 Exposure Response Date Recorded In the last 10 days, have yo u been in contact with someone who was confirmed or suspected to have Coronavirus/COVID-19? No / Unsure 02/28/2022 10:58 AM CDT documented as of this encounter Progress Notes * Sarah Ignacio RN - 03/04/2022 11:05 AM CDTAddended by: SARAH IGNACIO on: 03/04/2022 11:05 AM Modules accepted: Orders documented in this encounter Plan of Treatment Not on file documented as of this encounter Visit Diagnoses Diagnosis Primary hypertension- Primary Unspecified essential hypertension documented in this encounter Care Teams Nail Specialist Relationship Specialty Start Date End Date Pierre Acuna DO [address] [place] [address] PCP - General FAMILY PRACTICE 01/03/20 Pierre Acuna DO [address] [place] [address] FAMILY PRACTICE 12/03/19 Dick Wu MD [address] [place] [address] Consulting Physician CARDIOVASCULAR DISEASE 12/03/19 documented as of this encounter
--- OUTSIDE RECORDS SUMMARY | 2024-06-09 02:22 | XMS_ITS | Encounter Summary ---
Author Organization [facility] Address [address] [place] [address] Care Team Providers Care Farm Mortgage Agent Name Role Phone Pierre Acuna DO Primary Care Provider [phone] Reason for Referral * PT/OT/ST (Routine) - Pending Review Specialty Diagnoses / Procedures Referred By Contac t Referred To Contact Diagnoses Closed fracture of thoracic vertebra without spinal cord injury with routine healing, subsequent encounter Zhou Gutiérrez MD [address] [facility] [address] [place] [address] Referral ID Status Reason Start Date Expiration Date Visits Requested Visits Authorized [id number] Pending Review Specialty Services Required 01/12/2024 01/11/2025 12 12 Reason for Visit * Reason Comments Establish Care * Consult, Test & Treat (Routine) - Open Specialty Diagnoses / Procedures Referred By Contac t Referred To Contact Neurological Surgery Diagnoses Follow-up exam Procedures [place] UNLISTED E/M SERVICE Pierre Acuna DO [address] [place] [address] Zhou Gutiérrez MD [address] [facility] [address] [place] [address] Referral ID Status Reason Start Date Expiration Date Visits Re quested Visits Authorized [id number] Open 06/23/2023 06/22/2024 99 99 Encounter Details Date Type Department Care Team (Late st Contact Info) Description 01/12/2024 10:30 AM CDT Office Visit [facility] - Neurosurgery [address] [place] [address] Zhou Gutiérrez MD [address] [facility] [address] [place] [id number] Closed fracture of thoracic vertebra without spinal cord injury with routine healing, subsequent encounter (Primary Dx) Social History Tobacco Use Types Packs/Day Years [...] and heating? Not hard at all 11/03/2023 [facility] - Occupational Stress [...] on file documented as of this encounter Last Filed Vital Signs Vital Sign Reading Time Taken Comments Blood Pressure 161/87 01/12/2024 10:33 AM CDT Pulse 59 01/12/2024 10:33 AM CDT Temperature 36.1 ??C (97 ??F) 01/12/2024 10: 33 AM CDT Respiratory Rate - - Oxygen Saturation 93% 01/12/2024 10: 33 AM CDT Inhaled Oxygen Concentration - - Weight 123.6 kg (272 lb 6.4 oz) 024 10:33 AM CDT Height 160 cm (5' 3 ) 01/12/2024 10:33 AM CDT Body Mass Index 48.25 01/12/2024 10:33 AM CDT documented in this encounter Functional Status Functional Status Response [...] No 11/03/2023 documented as of this encounter Patient Instructions * Patient Instructions* Shannan Rogel RN - 01/12/2024 10:44 AM CDT Follow up with Dr. Gutiérrez as needed Referral to Physical Therapy For any questions please contact Shannan at [phone] For appointments call Centralized Scheduling at [phone] documented in this encounter Progress Notes * Zhou Gutiérrez MD - 01/12/2024 10:43 AM CDT NAME Promise Fierro [address] [facility] [id number] DATE OF VISIT: 01/12/24 I had the pleasure of seeing Ms. Fierro in the neurosurgery office today HISTORY OF THE PRESENT ILLNESS: Ms. Fierro is a very pleasant 83-year-old lady with past medical history significant for hypertension PE on Eliquis came to [facility] on 11/01/2003 after a ground-level fall. At that time she had aCT scan demonstrating an age- indeterminate superior endplate fractures of T5 and T6. The patient was placed in a TLSO brace which she has diligently used for the past 2 months. She reports improvement of the pain in the thoracic spine. She still reports some residual myofascial pain in the thoracicregion. She is having physical therapy at home. Social History Socioeconomic History Marital status: Spouse name: Not on file Number of children: Not on file Years of education: Not on file Highest education level: Not on file Occupational History Not on file Tobacco Use Smoking status: Never Smokeless tobacco: Never Substance and Sexual Activity Alcohol use: Yes Alcohol/week: 1.0 standard drink of alcohol Types: 1 Alcoholic drink(s) per week Comment: at weddings Drug use: Never Sexual activity: Not on file Other Topics Concern Not on file Social History Narrative Not on file Social Determinants of Health Financial Resource Strain: Low Risk (11/03/2023) Overall Financial Resource Strain (CARDIA) Difficulty of Paying Living Expenses: Not hard at all Food Insecurity: No Food Insecurity (11/03/2023) Hunger Vital Sign Worried About Running Out of Food in the Last Year: Never true Ran Out of Food in the Last Year: Never true Transportation Needs: No Transportation Needs (11/03/2023) PRAPARE - Transportation Lack of Transportation (Medical): No Lack of Transportation (Non-Medical): No Stress: No Stress Concern Present (11/03/2023) [facility] - Occupational Stress Questionnaire Feeling of Stress : Not at all Housing Stability: Low Risk (11/03/2023) Housing Stability Vital Sign Unable to Pay for Housing in the Last Year: No Number of Places Lived in the Last Year: 1 Unstable Housing in the Last Year: No Past Medical History: Diagnosis Date Arthritis DVT (deep venous thrombosis) (HCC) Esophageal stricture GERD (gastroesophageal reflux disease) HLD (hyperlipidemia) Hypertension Hypothyroidism Nontoxic single thyroid nodule Other pulmonary embolism without acute cor pulmonale (HCC) Past Surgical History: Procedure Laterality Date Appendectomy Back Surgery Cholecystectomy COLONOSCOPY ENDOSCOPY, UPPER Hysterectomy Knee Replacement Bilateral Rotator Cuff Repair Tonsillectomy Family History Problem Relation Name Age of Onset Cancer - Uterine Mother CAD (Coronary Artery Disease) Father Diabetes - Type 2 Sister Current Medications amLODIPine (Norvasc) 5 MG tablet Take 1 (one) tablet by mouth once daily Apixaban (Eliquis DVT/PE Starter Pack) 5 MG tablet Take by mouth 2 times daily ascorbic acid (Vitamin C) 500 MG tablet Take 1 (one) tablet by mouth once daily atorvastatin (Lipitor) 40 MG tablet Take 1 (one) tablet by mouth once daily bacitracin ointment Apply to affected area 3 times daily bimatoprost ([place]) 0.03 % ophthalmic solution 1 (one) drop at bedtime famotidine (Pepcid) 20 MG tablet Take by mouth 2 times daily furosemide (Lasix) 40 MG tablet Take 1 (one) tablet by mouth once daily Each morning HYDROcodone-acetaminophen ([place]) 10-325 MG tablet Take 1 (one) tablet by mouth 3 times daily irbesartan (Avapro) 150 MG tablet Take 1 (one) tablet by mouth once daily Each morning levothyroxine (Synthroid) 75 MCG tablet Take 1 (one) tablet by mouth once daily lidocaine (Lidoderm) 5 % patch Apply 2 (two) patches to skin every 24 hours Apply patch to most painful area and remove after 12 hours. May reapply a new patch 12 hours later. metoprolol succinate XL 24hr (Toprol XL) 100 MG tablet Take 1 (one) tablet by mouth once daily nystatin (Mycostatin) 315193 UNIT/GM powder Apply to affected area 2 times daily PARoxetine (Paxil) 20 MG tablet Take 1 (one) tablet by mouth once daily polyethylene glycol 3350 (Miralax) 17 g packet Take 17 (seventeen) g by mouth once daily vitamin D3 (Cholecalciferol) 25 MCG (1000 UNITS) tablet Take 2 (two) tablets by mouth once daily zinc gluconate 50 MG tablet Take 1 (one) tablet by mouth once daily PHYSICAL EXAMINATION: The patient is comfortable in no acute distress. She has full strength in upper and lower limbs forall tested muscles. Reflexes are physiologic and symmetric at 1+ in upper and lower limbs. She has some myofascial pain palpation of the paraspinal muscle in the posterior thoracic region. No pain palpation of the posterior elements in the thoracic spine. REVIEW OF DIAGNOSTIC STUDIES: The patient had a x-rays of the thoracic spine performed today demonstrating no further collapse ofthe fracture or kyphotic deformity. MEDICAL DECISION-MAKING: I told the patient that she is experiencing a good evolution with 2 months of conservative treatment for her T5 and T6 superior endplate fractures. I prescribed her physical therapy. She will follow-up as needed. documented in this encounter Plan of Treatment Scheduled Referrals Name Type Priority Associated Diagnoses Order Schedule Ref to Physical Therapy - [facility] PT Outpatient Referral Routine Closed fracture of thoracic vertebra without spinal cord injury with routine healing, subsequent encounter 1 Occurrences starting 01/12/2024 until 01/11/2025 documented as of this encounter Visit Diagnoses Diagnosis Closed fracture of thoracic vertebra without spinal cord injury with routine healing, subsequent encounter- Primary documented in this encounter Care Teams Farm Mortgage Agent Relationship Specialty Start Date End Date Pierre Acuna DO [address] [place] [id number] PCP - General Family Medicine 11/02/23 documented as of this encounter
--- OUTSIDE RECORDS SUMMARY | 2024-06-09 02:22 | XMS_ITS | Summary of Care ---
Author Organization [facility] Address [address] [place] [place] [address]- Care Team Providers Care Occupational Therapy Teacher Name Role Phone Pierre Acuna D.O. Primary Care Physician Unav ailable Encounter 11/08/23 - 11/18/23 [facility] [address] [place] [address]- Discharge Disposition: 06H Home with Home Health Care Attending Physician: Lamar Paul MD Admitting Physician: Lamar Paul MD Referring Physician: Kathryn Quach MD Allergies, Adverse Reactions, Alerts Substance Reaction Severity Status clarithromycin Active ezetimibe Active statins Active DOMO inhibitors Cough Active Medications amLODIPine 5 mg oral tablet 5 mg = 1 tab, Tab, Oral, Daily, 30 tab, 0 Refill(s), contact pcp for refills, Route to Pharmacy Electronically, [facility], 160, 11/08/23 19:37:00 CDT, Height/Length Dosing, cm, 129.7, 11/08/23 19:37:00 CDT, Weight Dosing, kg Start Date: 11/17/23 Status: Ordered ascorbic acid 500 mg oral tablet 500 mg = 1 tab, Tab, Oral, Daily, 30 tab, 0 Refill(s), CONTACT pcp for refills, Route to Pharmacy Electronically, [facility], 160, 11/08/23 19:37:00 CDT, Height/Length Dosing, cm, 129.7, 11/08/23 19:37:00 CDT, Weight Dosing, kg Start Date: 11/16/23 Status: Ordered atorvastatin 40 mg oral tablet 40 mg = 1 tab, Tab, Oral, Daily, 0 Refill(s) Start Date: 11/08/23 Status: Ordered bacitracin 500 units/g topical ointment 1 lina, Ointment, Topical TID, 15 gm, 0 Refill(s), no refills, Route to Pharmacy Electronically, [facility], 160, 11/08/23 19:37:00 CDT, Height/Length Dosing, cm, 129.7, 11/08/23 19:37:00 CDT, Weight Dosing, kg Start Date: 11/16/23 Status: Ordered bimatoprost 0.03% ophthalmic solution 1 drop, Soln-Opth, OPTH, qPM, 2.5 mL, 0 Refill(s) Start Date: 11/08/23 Status: Ordered Blue-Emu Lidocaine 4% topical film See Instructions, 60 patch, 0 Refill(s), Topical Daily; do not leave patch on for more than 12 hours at a time; CONTACT pcp for refills, Route to Pharmacy Electronically, [facility], [facility], 11/08/23 19:37:00 CDT, Height/Length Dosing,... Start Date: 11/16/23 Status: Ordered cholecalciferol 50 mcg (2000 intl units) oral tablet 50 mcg = 1 tab, Tab, Oral, Daily, 30 tab, 0 Refill(s), Route to Pharmacy Electronically, [facility], [facility], 11/08/23 19:37:00 CDT, Height/Length Dosing, cm, 129.7, 11/08/23 19:37:00 CDT, Weight Dosing, kg Start Date: 11/16/23 Status: Ordered Eliquis 5 mg oral tablet 5 mg, = 1 tab, Tab, Oral, BID, 0 Refill(s) Start Date: 11/08/23 Status: Ordered famotidine 20 mg oral tablet 20 mg = 1 tab, Tab, Oral, BID, 0 Refill(s) Start Date: 11/08/23 Status: Ordered furosemide 40 mg oral tablet 40 mg = 1 tab, Tab, Oral, Daily, 0 Refill(s) Start Date: 11/08/23 Status: Ordered levothyroxine 75 mcg (0.075 mg) oral tablet 75 mcg = 1 tab, Tab, Oral, Daily, 30 tab, 0 Refill(s), CONTACT pcp for refills, Route to Pharmacy Electronically, [facility], 160, 11/08/23 19:37:00 CDT, Height/Length Dosing, cm, 129.7, 11/08/23 19:37:00 CDT, Weight Dosing, kg Start Date: 11/16/23 Status: Ordered losartan 25 mg oral tablet 75 mg = 3 tab, Tab, Oral, Daily, 90 tab, 0 Refill(s), CONTACT pcp for refills, Route to Pharmacy Electronically, [facility], 160, 11/08/23 19:37:00 CDT, Height/Length Dosing, cm, 129.7, 11/08/23 19:37:00 CDT, Weight Dosing, kg Start Date: 11/16/23 Status: Ordered metoprolol succinate 100 mg oral tablet, extended release 100 mg = 1 tab, Tab-ER, Oral, Daily, 0 Refill(s) Start Date: 11/08/23 Status: Ordered Carmel 10 mg-325 mg oral tablet 1 tab, Oral, q8hr PRN, 0 Refill(s), PAIN (Scale 4-6) Start Date: 11/08/23 Status: Ordered PARoxetine 20 mg oral tablet 20 mg = 1 tab, Tab, Oral, Daily, 0 Refill(s) Start Date: 11/08/23 Status: Ordered potassium chloride 10 mEq oral tablet, extended release 10 mEq = 1 tab, Tab-ER, Oral, BID, 0 Refill(s) Start Date: 11/17/23 Status: Ordered zinc (as gluconate) 50 mg oral tablet 50 mg, Tab, Oral, Daily, 30 tab, 0 Refill(s), CONTACT pcp for refills, Route to Pharmacy Electronically, [facility], 160, 11/08/23 19:37:00 CDT, Height/Length Dosing, cm, 129.7, 11/08/23 19:37:00 CDT, Weight Dosing, kg Start Date: 11/16/23 Status: Ordered Problem List Condition Confirmation Course Effective Dates Status H ealth Status Informant Activities of daily living therapy Confirmed Active At risk of venous thromboembolus 1 Confirmed 11/09/23 Active Impaired mobility Confirmed Active 1Problem added by Discern Expert Rule: [id number]_VTERISKPROB_3 Results Laboratory List Name Date Basic Metabolic Panel - BSP 11/17/23 Complete Blood Count w/Diff - BSP 4 Diff Auto - BSP (DiffAuto) 11/17/23 Manual Diff - BSP (ManDiff) 11/17/23 eGFR - BSP (eGFR) 11/17/23 Basic Metabolic Panel - BSP 11/10/23 Complete Blood Count w/Diff - BSP 4 Diff Auto - BSP (DiffAuto) 11/10/23 eGFR - BSP (eGFR) 11/10/23 eGFR - BSP (eGFR) 11/09/23 Comprehensive Metabolic Panel - BSP 11/08 Magnesium - BSP 11/09/23 Most recent to oldest [Reference Range]: 1 2 3 ALT - BSP [7-45 units/L] 19 units/L 1 *NA* (11/09/23 5:00 AM) AST - BSP [10-45 units/L] 23 units/L 2 *NA* (11/09/23 5:00 AM) Albumin - BSP [3.5-5.0 g/dL] 3.6 g/dL 3 *NA* (11/09/23 5:00 AM) Alkaline Phosphatase - BSP [40-130 units/L] 108 units/L 4 *NA* (11/09/23 5:00 AM) BUN - BSP [6-25 mg/dL] 18 mg/dL 5 *NA* (11/17/23 5:23 AM) 14 mg/dL 6 *NA* (11/10/23 5:00 AM) 17 mg/dL 7 *NA* (11/09/23 5:00 AM) Calcium - BSP [8.5-10.3 mg/dL] 8.8 mg/dL 8 *NA* (11/17/23 5:23 AM) 9.0 mg/dL 9 *NA* (11/10/23 5:00 AM) 9.0 mg/dL 10 *NA* (11/09/23 5:00 AM) Creatinine - BSP [0.60-1.10 mg/dL] 0.60 mg/dL 11 *NA* (11/17/23 5:23 AM) 0.60 mg/dL 12 *NA* (11/10/23 5:00 AM) 0.60 mg/dL 13 *NA* (11/09/23 5:00 AM) Glucose - BSP [70-199 mg/dL] 108 mg/dL 1 4 *NA* (11/17/23 5:23 AM) 100 mg/dL 15 *NA* (11/10/23 5:00 AM) 95 mg/dL 16 *NA* (11/09/23 5:00 AM) Magnesium - BSP [1.4-2.5 mg/dL] 1.8 mg/dL 17 *NA* (11/09/23 5:00 AM) WBC - BSP [3.8-9.9 thousand/mm3] 6.6 thousand/mm3 18 *NA* (11/17/23 5:23 AM) 5.8 thousand/mm3 19 *NA* (11/10/23 5:00 AM) RBC - BSP [3.90-5.20 m/mm3] 3.84 m/mm3 2 0 *LOW* (11/17/23 5:23 AM) 3.58 m/mm3 21, 22 *LOW* (11/10/23 5:00 AM) Hematocrit - BSP [35.6-45.5 %] 37.5 % 23 *NA* (11/17/23 5:23 AM) 35.1 % 24 *LOW* (11/10/23 5:00 AM) Hemoglobin - BSP [11.9-15.5 g/dL] 12.4 g/dL 25 *NA* (11/17/23 5:23 AM) 11.7 g/dL 26 *LOW* (11/10/23 5:00 AM) Protein Total - BSP [6.5-8.5 g/dL] 5.8 g/dL 27 *LOW* (11/09/23 5:00 AM) NRBC Abs Auto - BSP [0.00-0.01 thousand/mm3] 0.00 thousand/mm3 28 *NA* (11/17/23 5:23 AM) 0.00 thousand/mm3 29 *NA* (11/10/23 5:00 AM) Monocyte Pct Auto - BSP 9.9 % 30 *NA* (11/17/23 5:23 AM) 9.9 % 31 *NA* (11/17/23 5:23 AM) 16.1 % 32 *NA* (11/10/23 5:00 AM) Monocyte Abs Auto - BSP [0.2-0.8 thousand/mm3] 0.7 thousand/mm3 33 *NA* (11/17/23 5:23 AM) 0.7 thousand/mm3 34 *NA* (11/17/23 5:23 AM) 0.9 thousand/mm3 35 *HI* (11/10/23 5:00 AM) Platelets - BSP [150-400 thousand/mm3] 278 thousand/mm3 36 *NA* (11/17/23 5:23 AM) 272 thousand/mm3 37 *NA* (11/10/23 5:00 AM) Lymphocyte Abs Auto - BSP [0.8-3.3 thousand/mm3] 2.0 thousand/mm3 38 *NA* (11/17/23 5:23 AM) 2.0 thousand/mm3 39 *NA* (11/17/23:23 AM) 1.3 thousand/mm3 40 *NA* (11/10/23 5:00 AM) Carbon Dioxide - BSP [22-32 mmol/L] 26 mmol/L 41 *NA* (11/17/23:23 AM) 28 mmol/L 42 *NA* (11/10/23 5:00 AM) 30 mmol/L 43 *NA* (11/09/23 5:00 AM) Chloride - BSP [97-110 mmol/L] 106 mmol/L 44 *NA* (11/17/23 5:23 AM) 104 mmol/L 45 *NA* (11/10/23 5:00 AM) 103 mmol/L 46 *NA* (11/09/23 5:00 AM) Imm Granulocyte Pct Auto - BSP 0.3 % 47 *NA* (11/17/23 5:23 AM) 0.3 % 48 *NA* (11/17/23 5:23 AM) 0.7 % 49 *NA* (11/10/23 5:00 AM) MCHC - BSP [32.3-35.7 g/dL] 33.1 g/dL 50 *NA* (11/17/23 5:23 AM) 33.3 g/dL 51 *NA* (11/10/23 5:00 AM) Eosinophil Pct Auto - BSP 1.8 % 52 *NA* (11/17/23 5:23 AM) 1.8 % 53 *NA* (11/17/23 5:23 AM) 2.6 % 54 *NA* (11/10/23 5:00 AM) Neutrophil Pct Auto - BSP 57.5 % 55 *NA* (11/17/23 5:23 AM) 57.5 % 56 *NA* (11/17/23 5:23 AM) 57.6 % 57 *NA* (11/10/23 5:00 AM) Platelet Estimate - BSP See Below 58 *NA* (11/17/23:23 AM) Bilirubin Total - BSP [0.1-1.2 mg/dL] 0.3 mg/dL 59 *NA* (11/09/23 5:00 AM) Potassium - BSP [3.3-4.9 mmol/L] 3.4 mmol/L 60 *NA* (11/17/23:23 AM) 4.2 mmol/L 61 *NA* (11/10/23 5:00 AM) 4.0 mmol/L 62 *NA* (11/09/23 5:00 AM) Lymphocyte Pct Auto - BSP 29.9 % 63 *NA* (11/17/23 5:23 AM) 29.9 % 64 *NA* (11/17/23 5:23 AM) 22.1 % 65 *NA* (11/10/23 5:00 AM) RBC Morph 1 - BSP See Below 66 *NA* (11/17/23 5:23 AM) Eosinphil Abs Auto - BSP [0.0-0.5 thousand/mm3] 0.1 thousand/mm3 67 *NA* (11/17/23 5:23 AM) 0.2 thousand/mm3 68 *NA* (11/10/23 5:00 AM) Basophil Abs Auto - BSP [0.0-0.1 thousand/mm3] 0.0 thousand/mm3 69 *NA* (11/17/23 5:23 AM) 0.0 thousand/mm3 70 *NA* (11/17/23:23 AM) 0.1 thousand/mm3 71 *NA* (11/10/23 5:00 AM) Anion Gap - BSP [2-15 mmol/L] 13 mmol/L 72 *NA* (11/17/23 5:23 AM) 11 mmol/L 73 *NA* (11/10/23 5:00 AM) 10 mmol/L 74 *NA* (11/09/23 5:00 AM) Neutrophil Abs Auto - BSP [1.5-6.5 thousand/mm3] 3.8 thousand/mm3 75 *NA* (11/17/23 5:23 AM) 3.8 thousand/mm3 76 *NA* (11/17/23 5:23 AM) 3.3 thousand/mm3 77 *NA* (11/10/23 5:00 AM) Sodium - BSP [135-145 mmol/L] 145 mmol/L 78 *NA* (11/17/23 5:23 AM) 143 mmol/L 79 *NA* (11/10/23 5:00 AM) 143 mmol/L 80 *NA* (11/09/23 5:00 AM) MCV - BSP [81.3-96.4 fL] 97.7 fL 81 *HI* (11/17/23:23 AM) 98.0 fL 82 *HI* (11/10/23 5:00 AM) MCH - BSP [27.1-33.3 pg] 32.3 pg 83 *NA* (11/17/23 5:23 AM) 32.7 pg 84 *NA* (11/10/23 5:00 AM) Basophil Pct Auto - BSP 0.6 % 85 *NA* (11/17/23:23 AM) 0.6 % 86 *NA* (11/17/23:23 AM) 0.9 % 87 *NA* (11/10/23 5:00 AM) MPV - BSP [9.1-12.3 fL] 9.2 fL 88 *NA* (11/17/23:23 AM) 9.0 fL 89 *LOW* (11/10/23 5:00 AM) eGFR - BSP [>=60 mL/min/1.73 m2] 89 mL/min/1.73 m2 90 *NA* (11/17/23 5:23 AM) 89 mL/min/1.73 m2 91 *NA* (11/10/23 5:00 AM) 89 mL/min/1.73 m2 92 *NA* (11/09/23 5:00 AM) Creatinine Level 0.60 mg/dL *NA* (11/17/23 5:23 AM) 0.60 mg/dL *NA* (11/10/23 5:00 AM) 0.60 mg/dL *NA* (11/09/23 5:00 AM) RDW CV - BSP [11.1-14.9 %] 14.3 % 93 *NA* (11/17/23 5:23 AM) 14.2 % 94 *NA* (11/10/23 5:00 AM) Differential - BSP Auto 95 *NA* (11/17/23 5:23 AM) Estimated Creatinine Clearance 35.25 mL/min 96 (11/17/23 5:23 AM) 35.25 mL/min 97 (11/10/23 5:00 AM) 35.25 mL/min 98 (11/09/23 5:00 AM) Imm Gran Abs Auto - BJ [0.0-0.1 thousand/mm3] 0.0 thousand/mm3 99 *NA* (11/17/23 5:23 AM) 0.0 thousand/mm3 100 *NA* (11/10/23 5:00 AM) 1Result Comment: Testing performed by: [address] [address] 2Result Comment: Testing performed by: [address] [address] 3Result Comment: Testing performed by: [address] [address] 4Result Comment: Testing performed by: [address] [address] 5Result Comment: Testing performed by: [address] [address] 6Result Comment: Testing performed by: [address] [address] 7Result Comment: Testing performed by: [address] [address] 8Result Comment: Testing performed by: [address] [address] 9Result Comment: Testing performed by: [address], [place]., [address] 10Result Comment: Testing performed by: [address] [address] 11Result Comment: Testing performed by: [facility], [address] [place] [address], [place]., [address] 12Result Comment: Testing performed by: [address], [place]., [address] 13Result Comment: Testing performed by: [address], [place]., [address] 14Result Comment: Interpretive Data Fasting glucose >/= 126 mg/dl is diagnostic for diabetes. Fasting is defined as no caloric intake for at least 8 hours. Fasting glucose between 100 mg/dl to 125 mg/dl is diagnostic of prediabetes. In a patient with classic symptoms of hyperglycemia or hyperglycemic crisis, a random glucose >/= 200 mg/dl is diagnostic for diabetes. In the absence of unequivocal hyperglycemia, results should be confirmed by repeat testing. The classification and Diagnosis of Diabetes Diabetes Care 2021; 46: S19-S40. Current interpretive data was last revised 2022. Testing performed by: [address] [address] 15Result Comment: Interpretive Data Fasting glucose >/= 126 mg/dl is diagnostic for diabetes. Fasting is defined as no caloric intake for at least 8 hours. Fasting glucose between 100 mg/dl to 125 mg/dl is diagnostic of prediabetes. In a patient with classic symptoms of hyperglycemia or hyperglycemic crisis, a random glucose >/= 200 mg/dl is diagnostic for diabetes. In the absence of unequivocal hyperglycemia, results should be confirmed by repeat testing. The classification and Diagnosis of Diabetes Diabetes Care 2021; 46: S19-S40. Current interpretive data was last revised 2022. Testing performed by: [address] [address] 16Result Comment: Interpretive Data Fasting glucose >/= 126 mg/dl is diagnostic for diabetes. Fasting is defined as no caloric intake for at least 8 hours. Fasting glucose between 100 mg/dl to 125 mg/dl is diagnostic of prediabetes. In a patient with classic symptoms of hyperglycemia or hyperglycemic crisis, a random glucose >/= 200 mg/dl is diagnostic for diabetes. In the absence of unequivocal hyperglycemia, results should be confirmed by repeat testing. The classification and Diagnosis of Diabetes Diabetes Care 2021; 46: S19-S40. Current interpretive data was last revised 2022. Testing performed by: [facility], [address] [place] [address], [place]., [address] 17Result Comment: Testing performed by: [facility], [address] [place] [address], [place]., [address] 18Result Comment: Testing performed by: [address], [place]., [address] 19Result Comment: Testing performed by: [address], [place]., [address] 20Result Comment: Cold agglutinin, tested after warmed (37C). Testing performed by: [address], [place]., [address] 21Result Comment: Testing performed by: [address], [place]., [address] 22Result Comment: patient exhibits strong cold agglutinin specimen required warming to 37 degrees prior to resulting. Testing performed by: [address], [place]., [address] 23Result Comment: Testing performed by: [address], [place]., [address] 24Result Comment: Testing performed by: [address], [place]., [address] 25Result Comment: Testing performed by: [address], [place]., [address] 26Result Comment: Testing performed by: [address], [place]., [address] 27Result Comment: Testing performed by: [address], [place]., [address] 28Result Comment: Testing performed by: [address], [place]., [address] 29Result Comment: Testing performed by: [address], [place]., [address] 30Result Comment: Interpretive Data Percent cell count reference ranges are not reported, since discordance with absolute values may lead to misinterpretation of CBC data. Current Interpretive Data was last revised on 2017. Testing performed by: [address], [place]., [address] 31Result Comment: Interpretive Data Percent cell count reference ranges are not reported, since discordance with absolute values may lead to misinterpretation of CBC data. Current Interpretive Data was last revised on 2017. Testing performed by: [facility], [address] [place] [address], [place]., [address] 32Result Comment: Interpretive Data Percent cell count reference ranges are not reported, since discordance with absolute values may lead to misinterpretation of CBC data. Current Interpretive Data was last revised on 2017. Testing performed by: [facility], [address] [place] [address], [place]., [address] 33Result Comment: Testing performed by: [facility], [address] [place] [address], [place]., [address] 34Result Comment: Testing performed by: [facility], [address] [place] [address], [place]., [address] 35Result Comment: Testing performed by: [address], [place]., [address] 36Result Comment: Testing performed by: [facility], [address] [place] [address], [place]., [address] 37Result Comment: Testing performed by: [facility], [address] [place] [address], [place]., [address] 38Result Comment: Testing performed by: [facility], [address] [place] [address], [place]., [address] 39Result Comment: Testing performed by: [facility], [address] [place] [address], [place]., [address] 40Result Comment: Testing performed by: [address], [place]., [address] 41Result Comment: Testing performed by: [address], [place]., [address] 42Result Comment: Testing performed by: [address], [place]., [address] 43Result Comment: Testing performed by: [facility], [address] [place] [address], [place]., [address] 44Result Comment: Testing performed by: [address], [place]., [address] 45Result Comment: Testing performed by: [facility], [address] [place]., [address] 46Result Comment: Testing performed by: [address], [place]., [address] 47Result Comment: Interpretive Data Percent cell count reference ranges are not reported, since discordance with absolute values may lead to misinterpretation of CBC data. Current Interpretive Data was last revised on 2017. Testing performed by: [address], [place]., [address] 48Result Comment: Interpretive Data Percent cell count reference ranges are not reported, since discordance with absolute values may lead to misinterpretation of CBC data. Current Interpretive Data was last revised on 2017. Testing performed by: [address], [place]., [address] 49Result Comment: Interpretive Data Percent cell count reference ranges are not reported, since discordance with absolute values may lead to misinterpretation of CBC data. Current Interpretive Data was last revised on 2017. Testing performed by: [address], [place]., [address] 50Result Comment: Testing performed by: [address] [address] 51Result Comment: Testing performed by: [address], [place]., [address] 52Result Comment: Interpretive Data Percent cell count reference ranges are not reported, since discordance with absolute values may lead to misinterpretation of CBC data. Current Interpretive Data was last revised on 2017. Testing performed by: [address] [address] 53Result Comment: Interpretive Data Percent cell count reference ranges are not reported, since discordance with absolute values may lead to misinterpretation of CBC data. Current Interpretive Data was last revised on 2017. Testing performed by: [address] [address] 54Result Comment: Interpretive Data Percent cell count reference ranges are not reported, since discordance with absolute values may lead to misinterpretation of CBC data. Current Interpretive Data was last revised on 2017. Testing performed by: [address] [address] 55Result Comment: Interpretive Data Percent cell count reference ranges are not reported, since discordance with absolute values may lead to misinterpretation of CBC data. Current Interpretive Data was last revised on 2017. Testing performed by: [facility], [address] [place] [address], [place]., [address] 56Result Comment: Interpretive Data Percent cell count reference ranges are not reported, since discordance with absolute values may lead to misinterpretation of CBC data. Current Interpretive Data was last revised on 2017. Testing performed by: [address], [place]., [address] 57Result Comment: Interpretive Data Percent cell count reference ranges are not reported, since discordance with absolute values may lead to misinterpretation of CBC data. Current Interpretive Data was last revised on 2017. Testing performed by: [address], [place]., [address] 58Result Comment: Automated Count Confirmed Testing performed by: [address], [place]., [address] 59Result Comment: Testing performed by: [address], [place]., [address] 60Result Comment: Testing performed by: [address], [place]., [address] 61Result Comment: Testing performed by: [address], [place]., [address] 62Result Comment: Testing performed by: [address], [place]., [address] 63Result Comment: Interpretive Data Percent cell count reference ranges are not reported, since discordance with absolute values may lead to misinterpretation of CBC data. Current Interpretive Data was last revised on 2017. Testing performed by: [address], [place]., [address] 64Result Comment: Interpretive Data Percent cell count reference ranges are not reported, since discordance with absolute values may lead to misinterpretation of CBC data. Current Interpretive Data was last revised on 2017. Testing performed by: [address], [place]., [address] 65Result Comment: Interpretive Data Percent cell count reference ranges are not reported, since discordance with absolute values may lead to misinterpretation of CBC data. Current Interpretive Data was last revised on 2017. Testing performed by: [facility], [address] [place] [address], [place]., [address] 66Result Comment: Consistent with RBC Indicies Testing performed by: [facility], [address] [place] [address], [place]., [address] 67Result Comment: Testing performed by: [facility], [address] [place] [address], [place] [address] 68Result Comment: Testing performed by: [facility], [address] [place] [address], [place]., [address] 69Result Comment: Testing performed by: [facility], [address] [place] [address], [place]., [address] 70Result Comment: Testing performed by: [facility], [address] [place] [address], [place]., [address] 71Result Comment: Testing performed by: [facility], [address] [place] [address], [place]., [address] 72Result Comment: Testing performed by: [facility], [address] [place] [address], [place]., [address] 73Result Comment: Testing performed by: [facility], [address] [place] [address], [place]., [address] 74Result Comment: Testing performed by: [facility], [address] [place] [address], [place] [address] 75Result Comment: Testing performed by: [address], [place]., [address] 76Result Comment: Testing performed by: [facility], [address] [place] [address], [place] [address] 77Result Comment: Testing performed by: [facility], [address] [place] [address], [place] [address] 78Result Comment: Testing performed by: [address], [place]., [address] 79Result Comment: Testing performed by: [address], [place]., [address] 80Result Comment: Testing performed by: [address], [place]., [address] 81Result Comment: Testing performed by: [address], [place]., [address] 82Result Comment: Testing performed by: [address], [place]., [address] 83Result Comment: Testing performed by: [address], [place]., [address] 84Result Comment: Testing performed by: [address], [place]., [address] 85Result Comment: Interpretive Data Percent cell count reference ranges are not reported, since discordance with absolute values may lead to misinterpretation of CBC data. Current Interpretive Data was last revised on 2017. Testing performed by: [address], [place]., [address] 86Result Comment: Interpretive Data Percent cell count reference ranges are not reported, since discordance with absolute values may lead to misinterpretation of CBC data. Current Interpretive Data was last revised on 2017. Testing performed by: [address], [place]., [address] 87Result Comment: Interpretive Data Percent cell count reference ranges are not reported, since discordance with absolute values may lead to misinterpretation of CBC data. Current Interpretive Data was last revised on 2017. Testing performed by: [address], [place] [id number] 88Result Comment: Testing performed by: [address] [address] 89Result Comment: Testing performed by: [address] [address] 90Result Comment: Interpretive Data Reference Interval Normal >/= 90 mL/min/1.73m2 Mildly decreased* 60 - 89 mL/min/1.73m2 Mildly to moderately decreased 45 - 59 mL/min/1.73m2 Moderately to severely decreased 30 - 44 mL/min/1.73m2 Severely decreased 15 - 29 mL/min/1.73m2 Kidney Failure < 15 mL/min/1.73m2 *Relative to young adult level Estimated glomerular filtration rate is determined by the 2020 CKD-EPI equation recommended by the National Kidney Foundation (A Unifying Approach to GFR Estimation: Recommendations of the NKF-ASK Task Force on Reassessing the Inclusion of Race in Diagnosing Kidney Disease, JASN 2021). The CKD-EPI equation should not be used for patients with unstable renal function and has not been validated in children and those over 70. Current interpretive data was last reviewed 2021. Testing performed by: [facility], [address] [place] [address]., [id number] [place] [address] (CLIA ID: [id number]) Lab Saddle Cutter: Enrique Melendez M.D. 91Result Comment: Interpretive Data Reference Interval Normal >/= 90 mL/min/1.73m2 Mildly decreased* 60 - 89 mL/min/1.73m2 Mildly to moderately decreased 45 - 59 mL/min/1.73m2 Moderately to severely decreased 30 - 44 mL/min/1.73m2 Severely decreased 15 - 29 mL/min/1.73m2 Kidney Failure < 15 mL/min/1.73m2 *Relative to young adult level Estimated glomerular filtration rate is determined by the 2020 CKD-EPI equation recommended by the National Kidney Foundation (A Unifying Approach to GFR Estimation: Recommendations of the NKF-ASK Task Force on Reassessing the Inclusion of Race in Diagnosing Kidney Disease, JASN 2021). The CKD-EPI equation should not be used for patients with unstable renal function and has not been validated in children and those over 70. Current interpretive data was last reviewed 2021. Testing performed by: [address] [address] [place] [address] (CLIA ID: [id number]) Lab Saddle Cutter: Enrique Melendez M.D. 92Result Comment: Interpretive Data Reference Interval Normal >/= 90 mL/min/1.73m2 Mildly decreased* 60 - 89 mL/min/1.73m2 Mildly to moderately decreased 45 - 59 mL/min/1.73m2 Moderately to severely decreased 30 - 44 mL/min/1.73m2 Severely decreased 15 - 29 mL/min/1.73m2 Kidney Failure < 15 mL/min/1.73m2 *Relative to young adult level Estimated glomerular filtration rate is determined by the 2020 CKD-EPI equation recommended by the National Kidney Foundation (A Unifying Approach to GFR Estimation: Recommendations of the NKF-ASK Task Force on Reassessing the Inclusion of Race in Diagnosing Kidney Disease, JASN 2020). The CKD-EPI equation should not be used for patients with unstable renal function and has not been validated in children and those over 70. Current interpretive data was last reviewed 2021. Testing performed by: [facility], [address] [place] [address]., [address] [place] [address] (CLIA ID: [id number]) Lab Saddle Cutter: Enrique Melendez M.D. 93Result Comment: Testing performed by: [address] [address] 94Result Comment: Testing performed by: [facility], [address] [place] [address], [place]., [address] 95Result Comment: Testing performed by: [facility], [address] [place] [address]., [address] 96Result Comment: Calculated using method: Cockcroft-Gault (default) Calculated using Formula : 0.85*(140-ageInYears)*IBW/(72) Age: 83 (83196275077.0) Serum Creatinine: 0.60 mg/dL (44776142018.0) Height: 160 cm (10754099629.0) Weight: 129.7 kg (IBW = 52.382 kg) 97Result Comment: Calculated using method: Cockcroft-Gault (default) Calculated using Formula : 0.85*(140-ageInYears)*IBW/(72) Age: 83 (11650675359.0) Serum Creatinine: 0.60 mg/dL (65229256286.0) Height: 160 cm (57005479708.0) Weight: 129.7 kg (IBW = 52.382 kg) 98Result Comment: Calculated using method: Cockcroft-Gault (default) Calculated using Formula : 0.85*(140-ageInYears)*IBW/(72) Age: 83 (44626585880.0) Serum Creatinine: 0.60 mg/dL (53339917903.0) Height: 160 cm (93730406109.0) Weight: 129.7 kg (IBW = 52.382 kg) 99Result Comment: Testing performed by: [facility], [address] [place] [address]., [address] 100Result Comment: Testing performed by: [facility], [address] [place] [address]., [address] Vital Signs Most recent to oldest [Reference Range]: 1 2 3 Temperature Oral F [96.4-99.1 DegF] 98 DegF (11/17/23 7:59 PM) 97.9 DegF (11/17/23 4:48 PM) 97.7 DegF (11/17/23 5:20 AM) Peripheral Pulse Rate [60-100 bpm] 71 bpm (11/17/23 8:00 PM) 80 bpm (11/17/23 4:48 PM) 71 bpm (11/17/23 11:43 AM) Respiratory Rate [14-20 br/min] 18 br/min (11/17/23 7:59 PM) 20 br/min (11/17/23 4:48 PM) 18 br/min (11/17/23 5:19 AM) Blood Pressure [90-140/60-90 mmHg] 132/64mmHg (11/17/23 8:00 PM) 130/74mmHg (11/17/23 4:48 PM) 130/66mmHg (11/17/23 11:42 AM) Mean Arterial Pressure, Cuff 87 mmHg (11/17/23 8:00 PM) 93 mmHg (11/17/23 4:48 PM) 88 mmHg (11/17/23 11:42 AM) Peripheral Pulse Rate Post [60-100 bpm] 77 bpm (11/11/23 8:00 AM) Systolic Blood Pressure Post [90-140 mmHg] 199 mmHg *>HHI* (11/11/23 8:00 AM) Diastolic Blood Pressure Post [60-90 mmHg] 82 mmHg (11/11/23 8:00 AM) SpO2 Post [94-100 %] 96 % (11/11/23 8:00 AM) Oxygen Therapy Post Room air (11/11/23 8:00 AM) Vital Signs Additional Information Post After amb 230 feet w/2ww pt c/o feeling woozy. After 2nd wallk BP178/72, O2 95%, RI 87 (11/11/23 8:00 AM) Temperature Oral 36.0 DegC 1 (11/17/23 7:59 PM) 36.6 DegC 2 (11/17/23 4:48 PM) 36.5 DegC 3 (11/17/23 5:20 AM) 1Result Comment: Charted by SYSTEM secondary to charting of Temperature Oral F on a Vitals Monitor. Rule: VITALSLINK_CALCULATIONS_2 2Result Comment: Charted by SYSTEM secondary to charting of Temperature Oral F on a Vitals Monitor. Rule: VITALSLINK_CALCULATIONS_2 3Result Comment: Charted by SYSTEM secondary to charting of Temperature Oral F on a Vitals Monitor. Rule: VITALSLINK_CALCULATIONS_2 Social History Social History Type Response Sex Female Patient Care team information Personnel Name: Pierre Acuna D.O.
--- OUTSIDE RECORDS SUMMARY | 2024-06-09 02:22 | XMS_ITS | Encounter Summary ---
Author Organization [facility] Address [address] [place] [address]. [place], [place] [address] [place] [address] Care Team Providers Care Loft Rigger Name Role Phone Pierre Acuna DO Unavailable [phone] Dick Wu MD Unavailable Unavailabl e Pierre Acuna DO Primary Care Provider [phone] Reason for Visit * Reason Onset Date Comments Lab Results 01/31/2020 Encounter Details Date Type Department Care Team (Late st Contact Info) Description 01/31/2020 Telephone [employer] [facility] AT [facility] [address] [place] [address] Dick Wu MD Lab Results Social History Tobacco Use Types Packs/Day Years Used Date Smoking Tobacco: Never Smokeless Tobacco: Never Comments Unknown Sex and Gender Information Value Date Recorded Sex Assigned at Not on file 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 Unable to assess 01/03/2020 2:37 PM CDT documented as of this encounter Progress Notes * Yael Beck RN - 01/31/2020 9:59 AM CDT Attempted to reach pt to discuss lab results. No answer. Unable to leave VM. Letter mailed. * Yael Beck RN - 01/31/2020 9:51 AM CDT ----- Message from Dick Wu MD sent at 01/31/2020 3:25 AM CDT ----- Labs reviewed & okay. documented in this encounter Plan of Treatment Not on file documented as of this encounter Visit Diagnoses Not on filedocumented in this encounter Care Teams Loft Rigger Relationship Specialty Start Date End Date Pierre Acuna DO [address] [place] [address] PCP - General FAMILY PRACTICE 01/03/20 Pierre Acuna DO [address] [place] [address] FAMILY PRACTICE 12/03/19 Dick Wu MD [address] [place] [address] Consulting Physician CARDIOVASCULAR DISEASE 12/03/19 documented as of this encounter
--- OUTSIDE RECORDS SUMMARY | 2024-06-09 02:22 | XMS_ITS | Encounter Summary ---
Author Organization [facility] Address [address] [place] [address]. [place], [place] [address] [place] [address] Care Team Providers Care Dispute Coordinator Name Role Phone Pierre Acuna DO Unavailable [phone] Dick Wu MD Unavailable Unavailabl e Pierre Acuna DO Primary Care Provider [phone] Encounter Details Date Type Department Care Team (Late st Contact Info) Description 01/20/2020 Orders Only [facility] AT [address] [place] [address] Ronda Rao LPN Social History Tobacco Use Types Packs/Day Years Used Date Smoking Tobacco: Never Smokeless Tobacco: Never Comments Unknown Sex and Gender Information Value Date Recorded Sex Assigned at Not on file 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 Unable to assess 01/03/2020 2:37 PM CDT documented as of this encounter Plan of Treatment Not on file documented as of this encounter Procedures Procedure Name Priority Date/Time Associated Diagnosis Comments THYROXINE, TOTAL Routine 01/14/2020 Hypertension documented in this encounter Results * T4; TOTAL (01/14/2020) TOTAL T4 9.0 01/14/2020 us Dick Wu MD LABORATORY Final Resul t documented in this encounter Visit Diagnoses Diagnosis Hypertension Unspecified essential hypertension documented in this encounter Care Teams Dispute Coordinator Relationship Specialty Start Date End Date Pierre Acuna DO [facility] [place] [address] PCP - General FAMILY PRACTICE 01/03/20 Pierre Acuna [place] [facility] [place] [address] FAMILY PRACTICE 12/03/19 Dick Wu MD [facility] [place] [address] Consulting Physician CARDIOVASCULAR DISEASE 12/03/19 documented as of this encounter
--- OUTSIDE RECORDS SUMMARY | 2024-06-09 02:22 | XMS_ITS | Encounter Summary ---
Author Organization [facility] Address [address] [place] [address]. 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
--- OUTSIDE RECORDS SUMMARY | 2024-06-09 02:22 | XMS_ITS | Encounter Summary ---
Author Organization [facility] Address [address] [place] [address]. [place] [address] [place] [address] Care Team Providers Care Overlock Sewing Machine Operator Name Role Phone Pierre Acuna DO Unavailable [phone] Dick Wu MD Unavailable Unavailabl e Pierre Acuna DO Primary Care Provider [phone] Reason for Visit * Reason Onset Date Comments Appointment Request 05/20/2023 Encounter Details Date Type Department Care Team (Late st Contact Info) Description 05/20/2023 Telephone [facility] ld [address] [place] [phone] Dick Wu MD Appointment Request Social History Tobacco Use Types Packs/Day Years Used Date Smoking Tobacco: Never Smokeless Tobacco: Never Comments Unknown Sex and Gender Information Value Date Recorded Sex Assigned at Not on file Legal 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 Scheduled for 1:00 pm tomorrow. She v/u. LOCK SEWING MACHINE OPERATOR * Becca Gray - 05/20/2023 3:12 PM CST VOICEMAIL Date: 05/20/2023 Time: 2:14 Who is calling: Promise Sri Phone number: [phone] Message: She would like to schedule an appointment with Bryce Biswas handled sent to nurse LOCK SEWING MACHINE OPERATOR documented in this encounter Plan of Treatment Not on file documented as of this encounter Visit Diagnoses Not on filedocumented in this encounter Care Teams Overlock Sewing Machine Operator Relationship Specialty Start Date End Date Pierre Acuna DO [address] [place] [address] PCP - General FAMILY PRACTICE 01/03/20 Pierre Acuna DO [address] [place] [address] FAMILY PRACTICE 12/03/19 Dick Wu MD [address] [place] [address] Consulting Physician CARDIOVASCULAR DISEASE 12/03/19 documented as of this encounter
--- OUTSIDE RECORDS SUMMARY | 2024-06-09 02:22 | XMS_ITS | Encounter Summary ---
Author Organization [facility] Address [address] [place] [address]. [place] [address] [place] [address] Care Team Providers Care Insulation Worker Furnace Installer Name Role Phone Tomer Linn MD Primary Care Provider [phone] Pierre Acuna DO Unavailable [phone] Dick Wu MD Unavailable Unavailabl e Pierre Acuna DO Primary Care Provider [phone] Reason for Visit * Reason Comments CT (SCAN) Encounter Details Date Type Department Care Team (Late st Contact Info) Description 12/27/2019 Scan [facility] [address] [place] [phone] Scanned, Documents CT (SCAN) Social History Tobacco Use Types Packs/Day Years Used Date Smoking Tobacco: Never Comments Unknown Sex and Gender Information Value Date Recorded Sex Assigned at Not on file 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 Gender Identity Not on file Sexual Orientation [...] Procedure Name Priority Date/Time Associated Diagnosis Comments CT GENERIC Routine 12/27/2019 documented in this encounter Results * CT (12/27/2019) Anatomical Region Laterality Modality Other us Documents Scanned SCANNING Final Result documented in this encounter Visit Diagnoses Not on filedocumented in this encounter Care Teams Insulation Worker Furnace Installer Relationship Specialty Start Date End Date Tomer Linn MD [address] [place] [address] PCP - General FAMILY PRACTICE 12/03/19 01/02/20 Pierre Acuna DO [address] [place] [address] PCP - General FAMILY PRACTICE 01/03/20 Pierre Acuna DO [address] [place] [address] FAMILY PRACTICE 12/03/19 Dick Wu MD [address] [place] [address] Consulting Physician CARDIOVASCULAR DISEASE 12/03/19 documented as of this encounter
--- OUTSIDE RECORDS SUMMARY | 2024-06-09 02:22 | XMS_ITS | Encounter Summary ---
Author Organization [facility] Address [address] [facility] [place] [address] Care Team Providers Care Roustabout Supervisor Name Role Phone Pierre Acuna DO Primary Care Provider [phone] Reason for Visit * Reason Onset Date Comments General 01/13/2024 Encounter Details Date Type Department Care Team (Late st Contact Info) Description 01/13/2024 Telephone [facility] Neuro[facility] [address] [place] [address] Shannan Rogel, RN General Social History Tobacco Use Types Packs/Day Years [...] and heating? Not hard at all 11/03/2023 [facility] - Occupational Stress [...] place to sleep or slept in a retirement (including now)? No 11/03/2023 Sex and Gender [...] No 11/03/2023 documented as of this encounter Miscellaneous Notes * Telephone Encounter - Shannan Rogel RN - 01/13/2024 3:37 PM CDT Patient called to request discharge intructions to be faxed to the [facility] at [phone]. Office discharge note sent to office. documented in this encounter Plan of Treatment Not on file documented as of this encounter Visit Diagnoses Not on filedocumented in this encounter Care Teams Roustabout Supervisor Relationship Specialty Start Date End Date Pierre Acuna DO [address] [place] [address] PCP - General Family Medicine 11/02/23 documented as of this encounter
--- OUTSIDE RECORDS SUMMARY | 2024-06-09 02:22 | XMS_ITS | Encounter Summary ---
Author Organization [facility] Address [address] [place] [address]. [place] [address] [place] [address] Care Team Providers Care Analytics Developer Name Role Phone Pierre Florence DO Unavailable [phone] Dariela Wu MD Unavailable Unavailabl e Pierre Florence DO Primary Care Provider [phone] Reason for Visit * Reason Comments Follow Up Edema Encounter Details Date Type Department Care Team ([facility] st Contact Info) Description 02/28/2022 11:00 AM CDT Office Visit [facility] [address] [place] [id number] Dariela Wu MD Vogler, Shauna B, EZNA, COLLECTOR OF PORT-C [address] [facility] [address] [place] [phone] Follow Up; Edema Social History Tobacco Use Types Packs/Day Years Used Date Smoking Tobacco: Never Smokeless Tobacco: Never Comments Unknown Sex and Gender Information Value Date Recorded Sex Assigned at Not on file 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 No / Unsure 02/28/2022 10:58 AM CDT documented as of this encounter Last Filed Vital Signs Vital Sign Reading Time Taken Comments Blood Pressure 108/68 02/28/2022 11:13 AM CDT Pulse 77 02/28/2022 11:13 AM CDT Temperature - - Respiratory Rate 16 02/28/2022 11:1 3 AM CDT Oxygen Saturation 96% 02/28/2022 11: 13 AM CDT Inhaled Oxygen Concentration - - Weight 124.6 kg (274 lb 12.8 oz) 2021 11:13 AM CDT Height 160 cm (5' 3 ) 02/28/2022 11:13 AM CDT Body Mass Index 48.68 02/28/2022 11:13 AM CDT documented in this encounter Patient Instructions * Patient Instructions* Vickie Dalton APRN, NP-C - 02/28/2022 11:00 AM CDT Stop vitamin e to avoid increasing your bleeding risk. Try moving your legs frequently, and over the counter compression socks for the swelling. You can continue your low dose water pill (furosemide). Dr. Florence will continue to monitor your cholesterol. If it worsens, we could discuss Praluent or Repatha injections. documented in this encounter Progress Notes * Vickie Dalton APRN, NP-C - 02/28/2022 11:00 AM CDT FROM: Vickie Dalton APRN, NP-C, collaborating physician Dariela Wu III, M.D. RE: Promise Childs : 1940 Reason for Visit: Follow Up and Edema History of Present Illness: Ms. Childs is a pleasant 81-year-old female seen in the cardiology clinic today for an annual scheduled followup visit. She has a history of hypertension, hyperlipidemia, venous insufficiency, DVT/PE, and GERD. She reports that she is doing reasonably well from a cardiac standpoint. She denies any anginal chest pain, shortness of breath, or dyspnea upon exertion. Her activity is limited due to her back pain. She walks with a walker. She denies any claudication. She denies any overt symptoms of congestive heart failure such as paroxysmal nocturnal dyspnea or orthopnea. She has chronic lower extremity edema. She states that this has been stable with her furosemide. She has no persistent palpitations, lightheadedness, or syncope. She denies signs and symptoms of CVA or TIA. She seems to be tolerating her present medications well without reported side effects. Evaluation during the clinic visit included an EKG which confirmed the presence of sinus rhythm at a rate of 67 beats per minute with a first-degree AV block. Her last echocardiogram in 2019 noted anLVEF 55 to 60% with mild LVH and mild tricuspid regurgitation. Recommendations/Plan: Ms. Childs's cardiac status appears clinically stable without ongoing anginal chest pain, symptoms of congestive heart failure, or signs of an underlying arrhythmia. Continued medical therapy and aggressive cardiac risk factor modification seem most appropriate at the present time. I have recommended the following to Ms. Childs: 1. Edema. Her edema has been stable with her low-dose furosemide. Her most recent labs from 11/14/2021 demonstrated a normal creatinine of 0.6 and potassium 4.7. I have sent in refills of her furosemide. We also discussed nonpharmacologic interventions, such as avoiding excess sodium and NSAIDs, incr easing her leg movements to improve her calf pump, and [id number] compression stockings. 2. Hypertension. Her blood pressure is well controlled in the office today. I have refilled her irbesartan. 3. History of PE/DVT. She will continue long-term anticoagulation. She is on Eliquis 5 mg twice daily. Her most recent creatinine was 0.6, and hemoglobin 13.3. I have advised her that vitamin E and fish oil do increase her risk of bleeding on Eliquis 4. Hyperlipidemia. She has been intolerant to statins and Zetia due to myalgias in the past. Her most recent lipid panel in our records from 2018 revealed a total cholesterol 283, LDL 198, HDL 68. 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 She does not have known coronary disease. Therefore, we will continue to defer lipid management to Dr. Florence. If we do discover atherosclerotic disease, or her levels worsen, we could consider PCSK9 inhibitors. We will plan to see Ms. Childs in one year. I have encouraged her to contact me in the meantime should she have any questions or problems. Medications: Current Outpatient Medications: ??? Calcium Carb-Cholecalciferol 600-100 MG-UNIT Cap, Take 1 tablet by mouth daily., Disp: , Rfl: ??? Cetirizine HCl (ZYRTEC ALLERGY) 10 MG Cap, Take 10 mg by mouth daily., Disp: , Rfl: ??? ELIQUIS 5 MG tablet, Take 5 mg by mouth 2 (two) times daily. , Disp: , Rfl: ??? famotidine (PEPCID) 20 MG tablet, Take 20 mg by mouth 2 (two) times a day., Disp: , Rfl: ??? fish oil (OMEGA-3 FATTY ACID) 1000 MG Cap capsule, Take 1,000 mg by mouth 2 (two) times daily.,Disp: , Rfl: ??? furosemide (LASIX) 40 MG tablet, Take 0.5 tablets (20 mg total) by mouth daily., Disp: 45 tablet, Rfl: 3 ??? HYDROcodone-acetaminophen 10-325 MG tablet, Take 1 tablet by mouth every 8 (eight) hours as needed. , Disp: , Rfl: ??? irbesartan (AVAPRO) 150 MG tablet, Take 1 tablet (150 mg total) by mouth every morning., Disp: 90 tablet, Rfl: 3 ??? levothyroxine 75 MCG tablet, Take 75 mcg by mouth every morning. , Disp: , Rfl: ??? LUMIGAN 0.01 % Solution, Place 1 drop into both eyes nightly at bedtime. , Disp: , Rfl: ??? metoprolol succinate ER (TOPROL-XL) 100 MG 24 hr tablet, Take 100 mg by mouth daily., Disp: , Rfl: ??? Multiple Vitamins-Minerals (MULTIVITAMIN ADULTS OR), Take 1 tablet by mouth daily., Disp: , Rfl: ??? pantoprazole EC (PROTONIX) 40 MG tablet, Take 40 mg by mouth daily., Disp: , Rfl: ??? PARoxetine 20 MG tablet, Take 20 mg by mouth every morning. , Disp: , Rfl: ??? potassium chloride CR (K-TAB) 10 MEQ Tab CR tablet, Take 10 mEq by mouth daily., Disp: , Rfl: ??? vitamin B-12 (CYANOCOBALAMIN) 500 MCG tablet, Place 500 Int'l Units under the tongue daily., Disp: , Rfl: ??? vitamin E 100 UNIT capsule, Take 100 Units by mouth daily., Disp: , Rfl: ??? solifenacin 5 MG tablet, Take 5 mg by mouth daily. , Disp: , Rfl: Allergies Allergen Reactions ??? Cristian Inhibitors Other (see comment) Cough ??? Clarithromycin Unknown ??? Ezetimibe Unknown ??? Statins Unknown Past Medical History: Diagnosis Date ??? Arthritis ??? DVT (deep venous thrombosis) (CMS/HCC) ??? Esophageal stricture ??? Gall stones ??? GERD (gastroesophageal reflux disease) ??? Hypertension ??? Post-menopausal bleeding ??? Pulmonary embolism (CMS/HCC) Past Surgical History: Procedure Laterality Date ??? APPENDECTOMY ??? BACK SURGERY ??? BREAST SURGERY ??? ENDOSCOPY ??? HYSTERECTOMY ??? REMOVAL GALLBLADDER ??? REPLACEMENT TOTAL KNEE Bilateral ??? TONSILLECTOMY Social History Tobacco Use ??? Smoking status: Never Smoker ??? Smokeless tobacco: Never Used Family History Problem Relation Name Age of Onset ??? Diabetes Sister ??? Cancer Mother ??? Stroke Father Family Status Relation Name Status ??? Sister (Not Specified) ??? Mother (Not Specified) ??? Father (Not Specified) Review of Systems Constitutional: Negative for recent unintentional weight gain, recent unintentional weight loss andnew or significant fatigue. HENT: Negative for new or significant hearing loss. Eyes: Negative for blurred vision and double vision. Respiratory: Negative for cough, new or significant shortness of breath and snoring. Cardiovascular: See HPI. Positive for leg swelling. Gastrointestinal: Negative for blood in stool and melena. Genitourinary: Negative for dysuria. Musculoskeletal: Positive for myalgias and joint stiffness/pain. Skin: Negative for rash. Neurological: Negative for tingling/numbness and focal weakness. Endo/Heme/Allergies: Negative for new or significant bruising/bleeding and polydipsia. Psychiatric/Behavioral: Negative for depression and new or significant memory loss. Vitals: 02/28/22 1113 BP: 108/68 Patient Position: Sitting BP Location: Right arm Pulse: 77 Weight: 124.6 kg (274 lb 12.8 oz) Height: 5' 3 (1.6 m) Body mass index is 48.68 kg/m??. Cardiac Exam Rate/Rhythm: Normal rate and regular rhythm. PMI: Pulses: Dorsalis pedis pulses are 1+ on the right side and 1+ on the left side. Posterior tibial pulses are 1+ on the right side and 1+ on the left side. Heart Sounds: Normal heart sounds. Normal S1 sounds. Normal S2 sounds. No gallop present. No S3. NoS4. Murmurs: No murmur present Physical Exam Constitutional: No distress. Healthy Appearance. HENT: Mask. Eyes: Pupils equal, round, and reactive to light. Conjunctivae normal. Neck: Neck supple. No JVD. Abdomen: Abdomen soft. Bowel sounds normal. No distension. No tenderness. No abdominal bruit present. Pulmonary: Effort normal. Breath sounds normal. Skin: Dry. Warm. No rash. No jaundice. No cyanosis. No clubbing. No xanthoma. Musculoskeletal: No kyphosis. Normal ROM. Neurological: Alert. Oriented x 3. Appropriate mood and affect. Comments: Mild BLE edema without pitting Diagnoses/Impression: 1. Localized edema 2. Essential hypertension 3. History of DVT (deep vein thrombosis) 4. Hyperlipidemia, unspecified hyperlipidemia type Referring Provider: Pierre Florence DO PCP: PIERRE FLORENCE DO documented in this encounter Plan of Treatment Not on file documented as of this encounter Procedures Procedure Name Priority Date/Time Associated Diagnosis Comments ELECTROCARDIOGRAM (NON MIDMARK ACQUIRED) Routine 02/28/2022 11:22 AM CDT Essential hypertension documented in this encounter Results * ELECTROCARDIOGRAM (02/28/2022 11:22 AM CDT) 02/28/2022 11:2 2 AM CDT Narrative [facility] - 02/28/2022 3:31 PM CDT ? [facility] ?[address] [place], [place] ??[address] ? Test Date: ?2022-02-28 Pat Name: ? PROMISE SMIDDY ? Department: ?? 105 ? Room: ? Gender: ? Female ? Manager Laundry: ?? ajm : ?1940 ? Requested By: DARIELA WU Order Number: [id number] ?Reading MD: ?? Dariela Wu ? Measurements Intervals ?Norco ? Rate: ? 67 ? P: ? IA: ? 0 ?QRS: ?25 QRSD: ? 86 ? T: ?10 QT: ? 397 ? QTc: ?421 ? Interpretive Statements ATRIAL FIBRILLATION ABNORMAL RHYTHM ECG Procedure Note Dariela Wu MD - 02/28/2022 [facility] [address] [place] [address] Test Date: 2022-02-28 Pat Name: PROMISE CHILDS Department: 105 Room: Gender: Female Manager Laundry: ervin : 1940 Requested By: DARIELA WU Order Number: [id number] Reading MD: Dariela Wu Measurements Intervals Norco Rate: 67 P: IA: 0 QRS: 25 QRSD: 86 T: 10 QT: 397 QTc: 421 Interpretive Statements ATRIAL FIBRILLATION ABNORMAL RHYTHM ECG Dariela Wu MD PROCEDURES-ORDERABLE NO CARMEN RGE Final Result [facility] documented in this encounter Visit Diagnoses Diagnosis Localized edema- Primary Edema Essential hypertension Unspecified essential hypertension History of DVT (deep vein thrombosis) Personal history of venous thrombosis and embolism Hyperlipidemia, unspecified hyperlipidemia type documented in this encounter Care Teams Analytics Developer Relationship Specialty Start Date End Date Pierre Florence DO [address] [place] [address] PCP - General FAMILY PRACTICE 01/03/20 Pierre Florence DO [address] [place] [address] FAMILY PRACTICE 12/03/19 Dariela Wu MD [address] [place] [address] Consulting Physician CARDIOVASCULAR DISEASE 12/03/19 documented as of this encounter
--- OUTSIDE RECORDS SUMMARY | 2024-06-09 02:22 | XMS_ITS | Encounter Summary ---
Author Organization [facility] Address [address] [place] [address]. [place] [address] [place] [address] Care Team Providers Care Courtroom Deputy Name Role Phone Pierre Acuna DO Unavailable [phone] JeromePierre szymanski Primary Care Provider [phone] Krys Jules MD Unavailable [phone] Hayley Pan [facility] Unavailable [phone] Reason for Visit * Reason Onset Date Comments Reschedule 10/15/[address] Ludin Jules/Maxim Encounter Details Date Type Department Care Team (Late st Contact Info) Description 10/15/2023 Telephone [facility] [address] [place] [address] Dick Wu MD Reschedule (Reassigned to Dr. 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 R/s letter mailed to pt. documented in this encounter Plan of Treatment Not on file documented as of this encounter Visit Diagnoses Not on filedocumented in this encounter Care Teams Courtroom Deputy Relationship Specialty Start Date End Date Pierre Acuna DO [address] [place] [address] PCP - General FAMILY PRACTICE 01/03/20 Pierre Acuna DO [address] [place] [address] FAMILY PRACTICE 12/03/19 Krys Jules MD [address] [place] [address] INTERVENTIONAL CARDIOLOGY 10/15/23 Hayley Pan, [facility]- [address] [place] [address] Nurse Practitioner NURSE PRACTITIONER ADULT HEALTH 10/15/23 documented as of this encounter
--- OUTSIDE RECORDS SUMMARY | 2024-06-09 02:22 | XMS_ITS | Encounter Summary ---
Author Organization [facility] Address [address] [place] [address]. [place] [address] [place] [address] Care Team Providers Care Entry Level Lab Technician Name Role Phone Pierre Acuna DO Unavailable [phone] Dick Wu MD Unavailable Unavailabl e Pierre Acuna DO Primary Care Provider [phone] Encounter Details Date Type Department Care Team (Late st Contact Info) Description 01/20/2020 Orders Only [facility] AT [address] [place] [address] Yael Beck, RN Social History Tobacco Use Types Packs/Day Years Used Date Smoking Tobacco: Never Smokeless Tobacco: Never Comments Unknown Sex and Gender Information Value Date Recorded Sex Assigned at Not on file 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 AMER. >60 <=90 EGFR NON-AFR. AMER. >60 <=90 01/14/2020 Dick Wu MD LABORATORY Final Resul t * MAGNESIUM (01/14/2020) MAGNESIUM 1.8 01/14/2020 Dick Wu MD LABORATORY Final Resul t * TSH (01/14/2020) Pathologist [facility] TSH 1.63 01/14/2020 Dick Wu MD LABORATORY Final Resul t documented in this encounter Visit Diagnoses Diagnosis Hypertension Unspecified essential hypertension documented in this encounter Care Teams Entry Level Lab Technician Relationship Specialty Start Date End Date Pierre Acuna DO [address] [place] [address] PCP - General FAMILY PRACTICE 01/03/20 Pierre Acuna DO [address] [place] [address] FAMILY PRACTICE 12/03/19 Dick Wu MD [address] [place] [address] Consulting Physician CARDIOVASCULAR DISEASE 12/03/19 documented as of this encounter
--- OUTSIDE RECORDS SUMMARY | 2024-06-09 02:22 | XMS_ITS | Encounter Summary ---
Author Organization [facility] Address [address] [place] [address] Care Team Providers Care Athletic Trainer Name Role Phone Pierre Acuna Primary Care Provider [phone] Encounter Details Date Type Department Care Team (Latest Contact Info) Description 11/03/2023 Travel Social History Tobacco Use Types Packs/Day Years Used Date Smoking Tobacco: Never Smokeless Tobacco: Never Alcohol Use Standard Drinks/Week Comments Yes 1 (1 standard drink = 0.6 oz pur e alcohol) at friding AUDIT-C Answer Date Recorded Q1: How often [...] and heating? Not hard at all 11/03/2023 [facility] - Occupational Stress [...] place to sleep or slept in a nursing home (including now)? No 11/03/2023 Sex and Gender [...] No 11/03/2023 documented as of this encounter Plan of Treatment Not on file documented as of this encounter Visit Diagnoses Not on filedocumented in this encounter Care Teams Athletic Trainer Relationship Specialty Start Date End Date Pierre Acuna DO [address] [place] [address] PCP - General Family Medicine 11/02/23 documented as of this encounter
--- OUTSIDE RECORDS SUMMARY | 2024-06-09 02:22 | XMS_ITS | Encounter Summary ---
Author Organization [facility] Address [address] [place] [address]. [place], [place] [address] [place] [address] Care Team Providers Care Measurement Supervisor Name Role Phone Tomer Linn MD Primary Care Provider [phone] Pierre Acuna DO Unavailable [phone] Dick Wu MD Unavailable Unavailabl e Reason for Visit * Reason Comments Echo (SCAN) Encounter Details Date Type Department Care Team ([facility] Contact Info) Description 11/26/2019 Scan [facility] [address] [place] [phone] Scanned, Documents Echo (SCAN) Social History Tobacco Use Types Packs/Day Years Used Date Smoking Tobacco: Never Assessed Comments Unknown Sex and Gender Information Value Date Recorded Sex Assigned at Not on file 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 Gender Identity Not on file Sexual Orientation Not on file documented as of this encounter Plan of Treatment Not on file documented as of this encounter Procedures Procedure Name Priority Date/Time Associated Diagnosis Comments ECHO GENERIC (SCAN ORDER) Routine 11/26/2019 documented in this encounter Results * ECHO (11/26/2019) Anatomical Region Laterality Modality Other us Documents Scanned SCANNING Final Result documented in this encounter Visit Diagnoses Not on filedocumented in this encounter Care Teams Measurement Supervisor Relationship Specialty Start Date End Date Tomer Linn MD [address] [place] [address] PCP - General FAMILY PRACTICE 12/03/19 01/02/20 Pierre Acuna DO [address] [place] [address] FAMILY PRACTICE 12/03/19 Dick Wu MD [address] [place] [address] Consulting Physician CARDIOVASCULAR DISEASE 12/03/19 documented as of this encounter
--- OUTSIDE RECORDS SUMMARY | 2024-06-09 02:22 | XMS_ITS | Clinical Summary ---
Author Organization [facility] Address [facility] Formerly [facility] [place] [address] [place] [address] Care Team Providers Care Rn Otolaryngology Name Role Phone CarsonPierre quiñones Unavailable [phone] Pierre Acuna DO Primary Care Provider [phone] Krys Jules MD Unavailable [phone] Hayley Pan ANP- Unavailable [phone] Allergies Active Allergy Reactions Criticality Noted Date Comments Cristian Inhibitors Other (see comment) 01/05/2020 Cough Clarithromycin Unknown 01/05/2020 Ezetimibe Unknown 01/05/2020 Statins Unknown 01/05/2020 Medications ELIQUIS 5 MG tablet Take 1 tablet (5 mg total) by mouth 2 (two) times daily. 11/22/2019 Active LUMIGAN 0.01 % Solution Place 1 drop into both eyes nightly at bedtime. 12/01/2019 Active HYDROcodone-cristian taminophen 10-325 MG tablet Take 1 tablet by mouth every 8 (eight) hours as needed. 11/23/2019 Active levothyroxine 75 MCG tablet Take 1 tablet (75 mcg total) by mouth every morning. 10/17/2019 Active PARoxetine 20 MG tablet Take 1 tablet (20 mg total) by mouth every morning. 11/02/2019 Active solifenacin 5 MG tablet Take 1 tablet (5 mg total) by mouth daily. 07/27/2019 Active Calcium Carb-Cholecalci ferol 600-100 MG-UNIT Cap Take 1 tablet by mouth daily. Active vitamin B-12 (CYANOCOBALAMIN ) [address] 500 Int'l Units under the tongue daily. Active potassium chloride CR (K-TAB) 10 MEQ Tab CR tablet Take 1 tablet (10 mEq total) by mouth daily. 01/28/2022 Active metoprolol succinate ER (TOPROL-XL) 100 MG 24 hr tablet Take 1 tablet (100 mg total) by mouth daily. 02/18/2022 Active famotidine (PEPCID) 20 MG tablet Take 1 tablet (20 mg total) by mouth 2 (two) times a day. 01/28/2022 Active pantoprazole EC (PROTONIX) 40 MG tablet Take 1 tablet (40 mg total) by mouth daily. 01/14/2022 Active fish oil (OMEGA-3 FATTY ACID) 1000 MG Cap capsule Take 1 capsule (1,000 mg total) by mouth 2 (two) times daily. Active vitamin E 100 UNIT capsule Take 1 capsule (100 Units total) by mouth daily. Active Cetirizine HCl (ZYRTEC ALLERGY) 10 MG Cap Take 10 mg by mouth daily. Active Multiple Vitamins-Minera ls (MULTIVITAMIN ADULTS OR) Take 1 tablet by mouth daily. Active ketoconazole (NIZORAL) 2 % cream 03/11/2023 Active fluticasone propionate (FLONASE) 50 MCG/ACT nasal spray 04/07/2023 Active atorvastatin (LIPITOR) 40 MG tablet 04/07/2023 Active aspirin EC (ECOTRIN) 81 MG tablet Take 1 tablet (81 mg total) by mouth daily. Active furosemide (LASIX) 40 MG tablet Take 1 tablet (40 mg total) by mouth daily. 30 tablet 11 05/22/2023 Active irbesartan (AVAPRO) 150 MG tablet TAKE ONE TABLET BY MOUTH IN THE MORNING 90 tablet 3 06/01/2023 Active Active Problems Problem Noted Date Diagnosed Date Pedal edema 06/29/2023 Hypertension GERD (gastroesophageal reflux disease) History of DVT (deep vein thrombosis) Pulmonary embolism ([facility] Other hyperlipidemia Resolved Problems Problem Noted Date Diagnosed Date Resolved Date Generalized edema 02/01/2020 06/29/2023 DVT (deep venous thrombosis) ([facility]) 06/29/2023 Family History Medical History Relation Comments Stroke Father Cancer Mother Diabetes Sister Relation Status Comments Father Mother Sister Social History Tobacco Use Types Packs/Day Years Used Date Smoking Tobacco: Never Smokeless Tobacco: Never Tobacco Cessation:Counseling Given: Not Answered Alcohol Use Standard Drinks/Week Comments Yes 0 (1 standard drink = 0.6 oz pur e alcohol) at weddings Comments Unknown Sex and Gender Information Value Date Recorded Sex Assigned at Not on file Legal Sex 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 Gender Identity Not on file Sexual Orientation Not on file Last Filed Vital Signs Vital Sign Reading Time Taken Comments Blood Pressure 147/44 05/21/2023 1:00 PM MOTORCYCLE SERVICE TECHNICIAN Pulse 70 05/21/2023 1:00 PM MOTORCYCLE SERVICE TECHNICIAN Temperature 36.7 ??C (98 ??F) 01/03/2020 2:21 PM CDT Respiratory Rate 16 02/28/2022 11:13 AM CDT Oxygen Saturation 98% 05/21/2023 1:00 PM MOTORCYCLE SERVICE TECHNICIAN Inhaled Oxygen Concentration - - Weight 121 kg (266 lb 12.8 oz) 05/21/2023 1:00 P M MOTORCYCLE SERVICE TECHNICIAN Height 160 cm (5' 3 ) 05/21/2023 1:00 PM MOTORCYCLE SERVICE TECHNICIAN Body Mass Index 47.26 05/21/2023 1:00 PM MOTORCYCLE SERVICE TECHNICIAN Plan of Treatment Health Maintenance Due Date Last Done Comments DTaP, Tdap and Td Vaccines ( 1 - Tdap) 10/01/1959 RSV Immunization or 60+ Years (1 - 1-dose 60+ series) 2000 Annual Medicare Wellness Visit 2005 Dexa Scan (General) 2005 Pneumococcal Vaccine: 65+ Years (2 of 2 - PCV) 06/23/2007 06/23/2006 Zoster Vaccines (2 of 3) 08/18/2008 06/23/2008 COVID-19 Vaccine ( - 2023-2 5 season) 2024 Influenza Adult (#1) 2024 07/15/2016, 03/23/2012 Meningococcal Vaccine Aged Out No torres ariel eligible based on patient's age to complete this topic RSV Immunizations Under 20 Months Aged Out No longer eligible b ased on patient's age to complete this topic Insurance MEDICARE [facility] MEDICAID MEDICARE AETNA [facility] Care Teams Rn Otolaryngology Relationship Specialty Start Date End Date Pierre Acuna DO [address] [place] [address] PCP - General FAMILY PRACTICE 01/03/20 Pierre Acuna DO [address] [place] [address] FAMILY PRACTICE 12/03/19 Krys Jules MD [address] [place] [address] [id number] INTERVENTIONAL CARDIOLOGY 10/15/23 Hayley Pan, HARDIK- [address] [place] [id number] Nurse Practitioner NURSE PRACTITIONER ADULT HEALTH 10/15/23
--- OUTSIDE RECORDS SUMMARY | 2024-06-09 02:22 | XMS_ITS | Encounter Summary ---
Author Organization [facility] Address [address] [place] [address]. [place] [address] [place] [address] Care Team Providers Care Legal Collector Name Role Phone Pierre Acuna DO Unavailable [phone] Dick Wu MD Unavailable Unavailabl e Pierre Acuna DO Primary Care Provider [phone] Reason for Visit * Reason Onset Date Comments Reschedule 02/14/2022 Encounter Details Date Type Department Care Team ([facility] st Contact Info) Description 02/14/2022 [facility] [address] [place] [address] Vickie Dalton, ZENA, NEONATOLOGIST-C [address] [facility] [address] [place] [address] Reschedule Social History Tobacco Use Types Packs/Day Years Used Date Smoking Tobacco: Never Smokeless Tobacco: Never Comments Unknown Sex and Gender Information Value Date Recorded Sex Assigned at Not on file Legal 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
--- OUTSIDE RECORDS SUMMARY | 2024-06-09 02:22 | XMS_ITS | Encounter Summary ---
Author Organization [facility] Address [address] [place] [address]. [place] [address] [place] [address] Care Team Providers Care Food Service Attendant Name Role Phone Pierre Acuna DO Unavailable [phone] Dick Wu MD Unavailable Unavailabl e Pierre Acuna DO Primary Care Provider [phone] Reason for Visit * Reason Onset Date Comments Appointment Request 01/19/2021 recall due Encounter Details Date Type Department Care Team ([facility] Contact Info) Description 01/19/2021 Telephone [facility] [address] [place] [id number] Dick Wu MD Appointment Request (recall due ) Social History Tobacco Use Types Packs/Day Years Used Date Smoking Tobacco: Never Smokeless Tobacco: Never Comments Unknown Sex and Gender Information Value Date Recorded Sex Assigned at Not on file 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 Wu documented in this encounter Plan of Treatment Not on file documented as of this encounter Visit Diagnoses Not on filedocumented in this encounter Care Teams Food Service Attendant Relationship Specialty Start Date End Date Pierre Acuna DO [address] [place] [address] PCP - General FAMILY PRACTICE 01/03/20 Pierre Acuna DO [facility] [place] [address] FAMILY PRACTICE 12/03/19 Dick Wu MD [address] [place] [id number] Consulting Physician CARDIOVASCULAR DISEASE 12/03/19 documented as of this encounter
--- OUTSIDE RECORDS SUMMARY | 2024-06-09 02:22 | XMS_ITS | Patient Health Summary ---
Author Organization [facility] [employer] Address [address] [place] [address] Care Team Providers Care Manager Cable Name Role Phone Pierre Acuna Primary Care Provider [phone] [facility],non-owned Affiliates and Associated Physician Practices is amultiple site organization consisting of ambulatory clinics and hospital sitesin [place], [place], [place] and [place]. This disclosure is being madepursuant to the Care Everywhere program and may not contain all information available regarding this patient. Last updated 18.[facility] [employer] Allergies * Cristian Inhibitors(Cough) * Clarithromycin(Unknown) * Ezetimibe(Unknown) * Hmg-Coa-R Inhibitors(Unknown) Medications * Be aware that medications may not be up to date on this document. Alwaysverify current medications with the patient. * Apixaban (Eliquis DVT/PE Starter Pack) 5 MG tablet Take by mouth 2 times daily * famotidine (Pepcid) 20 MG tablet Take by mouth 2 times daily * furosemide (Lasix) 40 MG tablet Take 1 (one) tablet by mouth once daily Each morning * irbesartan (Avapro) 150 MG tablet Take 1 (one) tablet by mouth once daily Each morning * bimatoprost (Lumigan) 0.03 % ophthalmic solution 1 (one) drop at bedtime * metoprolol succinate XL 24hr (Toprol XL) 100 MG tablet Take 1 (one) tablet by mouth once daily * PARoxetine (Paxil) 20 MG tablet Take 1 (one) tablet by mouth once daily * atorvastatin (Lipitor) 40 MG tablet Take 1 (one) tablet by mouth once daily * HYDROcodone-acetaminophen (Lancaster) 10-325 MG tablet(Started 11/05/2023) Take 1 (one) tablet by mouth 3 times daily * bacitracin ointment(Started 11/05/2023) Apply to affected area 3 times daily * polyethylene glycol 3350 (Miralax) 17 g packet(Started 11/05/2023) Take 17 (seventeen) g by mouth once daily * zinc gluconate 50 MG tablet(Started 11/08/2023) Take 1 (one) tablet by mouth once daily * vitamin D3 (Cholecalciferol) 25 MCG (1000 UNITS) tablet(Started 11/08/2023) Take 2 (two) tablets by mouth once daily * ascorbic acid (Vitamin C) 500 MG tablet(Started 11/08/2023) Take 1 (one) tablet by mouth once daily * amLODIPine (Norvasc) 5 MG tablet(Started 11/05/2023) TAKE ONE TABLET BY MOUTH ONCE DAILY * lidocaine (Lidoderm) 5 % patch(Started 11/05/2023) APPLY 2 PATCHES TO SKIN EVERY 24 HOURS. APPLY PATCH TO MOST PAINFUL AREA AND REMOVE AFTER 12 HOURS.MAY REAPPLY A NEW PATCH 12 HOURS LATER. * nystatin (Mycostatin) 090208 UNIT/GM powder(Started 11/05/2023) APPLY TO AFFECTED AREA 2 TIMES A DAY * polyethylene glycol 3350 (Miralax) 17 GM/SCOOP powder(Started 11/05/2023) MIX AND TAKE 1 CAPFUL (17 GM) BY MOUTH ONCE DAILY * levothyroxine (Synthroid) 75 MCG tablet(Started 11/05/2023) TAKE ONE TABLET BY MOUTH ONCE DAILY Active Problems Problem Noted Date Diagnosed Date Papules 11/07/2023 Acute traumatic pain 11/03/2023 Scalp laceration 11/03/2023 Trauma 11/02/2023 Other closed fracture of tho racic vertebra, unspecified thoracic vertebral level, initial encounter 11/02/2023 Closed fracture of multiple ribs of left side, initial encounter 11/02/2023 Allergies 11/01/2023 Immunizations * TDAP (7yrs+)(Given 11/01/2023) Social History Tobacco Use Types Packs/Day Years [...] and heating? Not hard at all 11/03/2023 [facility] [place] of Occupat ional Health - Occupational Stress [...] Mass Index 48.25 01/12/2024 10:33 AM CDT Procedures * XR THORACIC SPINE 3VW(Performed 01/12/2024) Performed for Closed fracture of multiple ribs of left side, initial encounter * PREPARE RBC LEUKOREDUCED UNIT(Performed 11/05/2023) * XR CHEST 1VW PORTABLE(Performed 11/04/2023) Performed for Closed fracture of multiple ribs of left side, initial encounter * CBC W/O DIFFERENTIAL(Performed 11/04/2023) * BASIC METABOLIC PANEL (CALCIUM TOTAL)(Performed 11/04/2023) * MAGNESIUM BLOOD(Performed 11/04/2023) * PHOSPHORUS BLOOD(Performed 11/04/2023) * CBC W/O DIFFERENTIAL(Performed 11/03/2023) * BASIC METABOLIC PANEL (CALCIUM TOTAL)(Performed 11/03/2023) * MAGNESIUM BLOOD(Performed 11/03/2023) * PHOSPHORUS BLOOD(Performed 11/03/2023) * XR THORACIC SPINE 3VW(Performed 11/02/2023) Performed for Closed fracture of multiple ribs of left side, initial encounter * BLOOD TYPE VERIFICATION(Performed 11/02/2023) * CBC W/O DIFFERENTIAL(Performed 11/02/2023) * BASIC METABOLIC PANEL (CALCIUM TOTAL)(Performed 11/02/2023) * MAGNESIUM BLOOD(Performed 11/02/2023) * PHOSPHORUS BLOOD(Performed 11/02/2023) * TROPONIN-I HIGH SENSITIVE REFLEX 1HOUR(Performed 11/02/2023) * URINALYSIS W/MICROSCOPIC NO CULTURE(Performed 11/02/2023) * URINE DRUG SCREEN IMMUNOASSAY(Performed 11/02/2023) * EKG 12-LEAD(Performed 11/01/2023) Performed for Trauma * TROPONIN-I HIGH SENSITIVE BASELINE + 1HR(Performed 11/01/2023) * ANTIBODY IDENTIFICATION(Performed 11/01/2023) * AUDI DIRECT(Performed 11/01/2023) * TYPE + SCREEN PANEL(Performed 11/01/2023) * TEG 6 GLOBAL HEMOSTASIS W/ LYSIS(Performed 11/01/2023) * TEG 6S PLATELET MAPPING(Performed 11/01/2023) * PT-INR SLH(Performed 11/01/2023) * CBC W AUTO DIFFERENTIAL(Performed 11/01/2023) * BASIC METABOLIC PANEL (CALCIUM TOTAL)(Performed 11/01/2023) * ALCOHOL ETHYL BLOOD(Performed 11/01/2023) * CT CERVICAL SPINE WO CONTRAST(Performed 11/01/2023) Performed for Trauma * CT LUMBAR SPINE WO CONTRAST(Performed 11/01/2023) Performed for Trauma * CT THORACIC SPINE WO CONTRAST(Performed 11/01/2023) Performed for Trauma * CT CHEST ABDOMEN PELVIS W CONT(Performed 11/01/2023) Performed for Trauma * CT FACIAL BONES WO CONTRAST(Performed 11/01/2023) Performed for Trauma * CT HEAD WO CONTRAST(Performed 11/01/2023) Performed for Trauma * XR PELVIS 1 OR 2VW(Performed 11/01/2023) Performed for Trauma * XR CHEST 1VW PORTABLE(Performed 11/01/2023) Performed for Trauma * OXYGEN WITHOUT TITRATION (ADULT)(Performed 11/01/2023) Results * XR THORACIC SPINE 3VW (01/12/2024 10:13 AM CDT) Only the most recent of2 resultswithin the time period is included. Anatomical Region Laterality Modality Spine Radiographic Anahy [...] Zhou Gutiérrez MD DIAGNOSTIC IMAGI NG ORDERABLES * PREPARE (CROSSMATCH) RBC UNIT(S), 2 Units (11/05/2023 1:17 AM CDT) Unit Description AS1 LR PRBC [facility] B[facility]OD [facility] Unit ABO O [facility] Unit Rh POS [facility] Product Number R02 [facility] B LOOD BANK LAB Unit Donor # [id number] [facility] Unit Status released [facility] BLOO D BANK LAB Product Code [id number] [facility] BLO OD BANK LAB Blood Type Barcode 5100 [facility] Expiration Date S BLOOD BANK LAB Unit Description AS1 LR PRBC [facility] BLOOD [facility] Unit ABO O [facility] Unit Rh POS [facility]LO[facility] Product Number R02 [facility] B LOOD BANK LAB Unit Donor # [id number] [facility] Unit Status released [facility] BLOO D BANK LAB Product Code [id number] [facility] BLO OD BANK LAB Blood Type Barcode 5100 [facility] Expiration Date S BLOOD BANK LAB Blood Bank BLOOD SPECIMEN / Unknown 11/01/2023 8:07 PM CDT Gabriel Hill MD LAB - BLOOD BANK ORD ERABLES [facility] [address] [place] [address], [facility] [phone] * XR CHEST 1VW PORTABLE (11/04/2023 12:54 PM CDT) Only the most recent of2 resultswithin the time period is included. Anatomical Region Laterality Modality Chest Radiographic Anahy ging 11/04/2023 1:34 PM CDT Narrative 11/05/2023 11:04 AM CDT PROCEDURE: ??XR CHEST 1VW PORTABLE, DATE/TIME OF EXAM: ??11/04/2023 12:55 PM, LOCATION ??[facility] INDICATION: S22.42XA: Closed fracture of multiple ribs of left side, initial encounter ADDITIONAL CLINICAL INFORMATION: Ordering Provider Reason For Exam: ??rib fxs Technologist Note: Additional: COMPARISON: Chest radiograph and CT chest abdomen pelvis 11/01/2023. FINDINGS/IMPRESSION: Hazy appearance of the bilateral lungs is favored to be secondary to body habitus. Diffusely prominent bilateral interstitial opacities is compatible with pulmonary vascular congestion, less likely infection. There is no confluent consolidation, pleural effusion, or pneumothorax. The cardiac silhouette appears mildly enlarged on this portable radiograph, which can be artifactual. The mediastinal silhouette is normal. Multiple chronic left-sided rib fractures are better evaluated on prior CT. Partially calcified bilateral breast implants. Report dictated by Darrion Linares MD (vice president industrial relations). Rl Jacques MD have personally reviewed and interpreted this examination/study. > Interpreting Provider: Rl Marrero MD on 11/05/2023 11:04 AM Procedure Note Rl Marrero MD - 11/05/2023 PROCEDURE: XR CHEST 1VW PORTABLE, DATE/TIME OF EXAM: 11/04/2023 12:55PM, LOCATION [facility] INDICATION: S22.42XA: Closed fracture of multiple ribs of left side, initialencounter ADDITIONAL CLINICAL INFORMATION: Ordering Provider Reason For Exam: rib fxs Technologist Note: Additional: COMPARISON: Chest radiograph and CT chest abdomen pelvis 11/01/2023. FINDINGS/IMPRESSION: Hazy appearance of the bilateral lungs is favored to be secondary tobody habitus. Diffusely prominent bilateral interstitial opacities iscompatible with pulmonary vascular congestion, less likely infection. There is no confluent consolidation, pleural effusion, or pneumothorax. The cardiac silhouette appears mildly enlarged on this portable radiograph, whichcan be artifactual. The mediastinal silhouette is normal. Multiple chronic left-sided rib fractures are better evaluated on prior CT. Partially calcified bilateral breast implants. Report dictated by Darrion Linares MD (vice president industrial relations). Rl Jacques MD have personally reviewed and interpreted this examination/study. > Interpreting Provider: Rl Marrero MD on 11/05/2023 11:04 AM Kathryn Quach MD DIAGNOSTIC IMAGING O RDERABLES * (ABNORMAL) CBC W/O DIFFERENTIAL (11/04/2023 1:56 AM CDT) Only the most recent of3 resultswithin the time period is included. Pathologist [facility] WBC 6.2 4.0 - 10.7 x10E9/L 11/04/2023 2:14 AM [facility] RBC Count 3.15(L) 3.90 - 5.20 x10E12/L 11/04/2023 2:14 AM [facility] Hemoglobin 11.7(L) 11.9 - 15.8 g/dL 11/04/2023 2:14 AM [facility] Hematocrit 32.7(L) 34.8 - 46.1 % 11/04/2023 2:14 AM [facility] MCV 103.8(H) 80.0 - 98.0 fL 11/04/2023 2:14 AM [facility] MCH 37.1(H) 26.7 - 33.6 pg 11/04/2023 2:14 AM [facility] MCHC 35.8 31.7 - 36.3 g/dL 11/04/2023 2:14 AM [facility] RDW-CV 15.5(H) 11.3 - 14.8 % 11/04/2023 2:14 AM [facility] Platelet Count 205 150 - 420 x10E9/L 11/04/2023 2:14 AM [facility] MPV 8.6 7.8 - 11.4 fL 11/04/2023 2:14 AM [facility] Blood BLOOD SPECIMEN / Unknown Lab Venipuncture / Unknown 11/04/2023 1:56 AM CDT 11/04/2023 2:09 AM CDT Gabriel Hill MD LAB - HEMATOLOGY ORD ERABLES [facility] [address] [place] [phone], [facility] [phone] * (ABNORMAL) BASIC METABOLIC PANEL (CALCIUM TOTAL) (11/04/2023 1:56 AM CDT) Only the most recent of4 resultswithin the time period is included. Pathologist [facility] BUN 11 7 - 26 mg/dL 11/04/2023 2:37 AM [facility] Creatinine 0.60 0.56 - 0.96 mg/dL 11/04/2023 2:37 AM [facility] Sodium 140 136 - 145 mmol/L 11/04/2023 2:37 AM [facility] Potassium 3.7 3.5 - 4.5 mmol/L 11/04/2023 2:37 AM [facility] Chloride 108(H) 98 - 107 mmol/L 11/04/2023 2:37 AM [facility] CO2 24 22 - 29 mmol/L 11/04/2023 2:37 AM [facility] Glucose 103 70 - 115 mg/dL 11/04/2023 2:37 AM [facility] Calcium 8.8 8.4 - 10.2 mg/dL 11/04/2023 2:37 AM [facility] Anion Gap 8 6 - 16 11/04/2023 2:37 AM [facility] BUN/Creatinine Ratio 18 7 - 23 11/04/2023 2:37 AM [facility] Osmolality Calculated 290 275 - 295 mOsm/kg 11/04/2023 2:37 AM [facility] eGFR by CKD-EPI 89(L) >=90 mL/min/1.7 3 m2 11/04/2023 2:37 AM [facility] Blood BLOOD SPECIMEN / Unknown Lab Venipuncture / Unknown 11/04/2023 1:56 AM CDT 11/04/2023 2:09 AM T Gabriel Hill MD LAB - CHEMISTRY MARIA INES HARTMANN [facility] Organization Address City/State/ZIP Co de Phone Number [facility] [address] [place] [phone], [facility] [phone] * PHOSPHORUS BLOOD (11/04/2023 1:56 AM CDT) Only the most recent of3 resultswithin the time period is included. Phosphorus 3.2 2.9 - 5.1 mg/dL 11/04/2023 2:37 AM [facility] Blood BLOOD SPECIMEN / Unknown Lab Venipuncture / Unknown 11/04/2023 1:56 AM CDT 11/04/2023 2:09 AM CDT Gabriel Hill MD LAB - CHEMISTRY MARIA INES HARTMANN Performing Organization Address City/[facility]/ZIP Co de Phone Number [facility] [address] [place] [address], [place] [phone] * MAGNESIUM BLOOD (11/04/2023 1:56 AM CDT) Only the most recent of3 resultswithin the time period is included. Magnesium 1.8 1.6 - 2.6 mg/dL 11/04/2023 2:37 AM CDT [facility] Blood BLOOD SPECIMEN / Unknown Lab Venipuncture / Unknown 11/04/2023 1:56 AM CDT 11/04/2023 2:09 AM CDT Gabriel Hill MD LAB - CHEMISTRY MARIA INES HARTMANN Performing Organization Address City/[facility]/ZIP Co de Phone Number [facility] [address] [place] [phone], [place] [phone] * BLOOD TYPE VERIFICATION (11/02/2023 10:36 AM CDT) ABO Rh O POS 11/02/2023 11:20 AM CDT [facility] Blood Bank BLOOD SPECIMEN / Unknown Venipuncture / Unknown 11/02/2023 10:36 AM CDT 11/02/2023 10:45 AM CDT Kathryn Quach MD LAB - BLOOD BANK ROSMERY SAAB [facility] [address] [place] [phone], [place] [phone] * TROPONIN-I HIGH SENSITIVE REFLEX 1HOUR (11/02/2023 1:27 AM CDT) Troponin I High Sensitive 6 <=14 ng/L 11/02/2023 2:06 AM CDT [facility] Delta Troponin I HS 11/02/2023 2:06 AM [facility] Comment:Delta value intentio mayito not calculated. Baseline to 1 hour specimen collection interval exceeded. Blood BLOOD SPECIMEN / Unknown Venipuncture / Unknown 11/02/2023 1:27 AM CDT 11/02/2023 1:34 AM CDT Mckay Church MD LAB - CHEMISTRY MARIA INES HARTMANN [facility] Organization Address City/State/ZIP Co de Phone Number [facility] [address] [place] [phone], [facility] [phone] * (ABNORMAL) URINALYSIS W/MICROSCOPIC NO CULTURE (11/02/2023 1:27 AM CDT) Color UA Yellow Straw, Yellow 11/02/2023 1:41 AM [facility] Clarity UA Clear Clear 11/02/2023 1:41 AM [facility] Specific [place] UA 1.044(H) 1.005 - 1.030 11/02/2023 1:41 AM [facility] pH UA 5.0 5.0 - 8.0 pH 11/02/2023 1:41 AM [facility] Protein UA Negative Negative 11/02/2023 1:41 AM [facility] Glucose UA Negative Negative 11/02/2023 1:41 AM [facility] Ketone UA Negative Negative 11/02/2023 1:41 AM [facility] Bilirubin UA Negative Negative 11/02/2023 1:41 AM [facility] Blood UA 3+(A) Negative 11/02/2023 1:41 AM [facility] Nitrite UA Negative Negative 11/02/2023 1:41 AM [facility] Leukocyte Esterase Negative Negative 11/02/2023 1:41 AM [facility] Urobilinogen UA Negative Negative mg/dL 11/02/2023 1:41 AM [facility] RBC UA 0-2 None Seen, 0-2, 3-5 /HPF 11/02/2023 1:41 AM [facility] WBC UA 0-5 None Seen, 0-5 /HPF 11/02/2023 1:41 AM [facility] Bacteria UA 1+(A) None /HPF 11/02/2023 1:41 AM [facility] Squamous Epithelial Cells UA None Seen None Seen, 0-2, 3-5 /HPF 11/02/2023 1:41 AM [facility] Mucus UA 1+ /LPF 11/02/2023 1:41 AM [facility] Urine URINE SPECIMEN OBTAINED BY CLEAN CATCH PROCEDURE / Unknown Collection / Unknown 11/02/2023 1:27 AM CDT 11/02/2023 1:32 AM [facility] Narrative [facility] - 11/02/2023 1:41 AM T Kathryn Quach MD LAB - URINALYSIS ORD ERABLES [facility] [address] [place] [phone], [facility] [phone] * (ABNORMAL) URINE DRUG SCREEN IMMUNOASSAY (11/02/2023 1:27 AM [facility]) Pathologist [facility] Amphetamines Screen Urine Negative Negative : < 1000 ng/mL 11/02/2023 1:54 AM [facility] Barbiturates Screen Urine Negative Negative : < 200 ng/mL 11/02/2023 1:54 AM [facility] Benzodiazepine Screen Urine Negative Negative : < 200 ng/mL 11/02/2023 1:54 AM [facility] Opiates Urine Positive(A) Negative : < 300 ng/mL 11/02/2023 1:54 AM [facility] Comment:Positive urine opiat e screening results should be confirmed by another generally accepted non-immunological method such as gas chromatography or mass spectrometry. Cocaine Metabolites Urine Negative Negative : < 300 ng/mL 11/02/2023 1:54 AM [facility] Phencyclidine Screen Urine Negative Negative : < 25 ng/ml 11/02/2023 1:54 AM [facility] Cannabinoids Screen Urine Negative Negative : <50 ng/mL 11/02/2023 1:54 AM [facility] Methadone Screen Urine Negative Negative : < 300 ng/mL 11/02/2023 1:54 AM CDT [facility] Fentanyl Screen Urine Negative Negative : <1.5 ng/mL 11/02/2023 1:54 AM CDT [facility] Urine URINE / Unknown Collection / Unknown 11/02/2023 1:27 AM CDT 11/02/2023 1:32 AM CDT Narrative [facility] - 11/02/2023 1:54 AM CDT The Urine Toxicology Screening Panel does not screen for Propoxyphene, Meprobamate, Carisoprodol, Trazodone, yjea-lgp-qsxhqwn medications and/or volatiles (Acetone, Isopropanol, Methanol or Ethylene Glycol). Ethanol, Salicylate, Acetaminophen, Tricyclic Antidepressants and several therapeutic drugs may be individually assayed in serum or plasma specimen. Toxicology testing by the [facility] is an aid to medical diagnosis and treatment of patients. No documented chain of custody was maintained. Results are intended to be used for clinical purposes only. ? Kathryn Quach MD LAB - URINE CHEMISTR Y ORDERABLES Performing Organization Address [facility]/State/ZIP Co de Phone Number [facility] [address] [place] [address], [facility] [phone] * EKG 12-LEAD (11/01/2023 8:04 PM CDT) Ventricular Rate 69 BPM [facility] MUSE QRS Duration ms 84 ms [facility] Q-T Interval ms 414 ms [facility] QTC Calculation (Bezet) 443 ms [facility] Calculated R Stanton 47 degrees [facility] Calculated T Stanton 18 degrees [facility] Interpretation EKG NORMAL SINUS RHYTHM Normal EKG NO PREVIOUS ECGS AVAILABLE Confirmed by DORIS ??, VERNELL ([id number]) on 11/06/2023 9:10:03 AM [facility] MUSE 11/01/2023 8:04 PM CDT 11/06/2023 9:10 AM CDT Mckay Church MD ECG ORDERABLES Performing Organization Address City/[facility]/ZIP Co de Phone Number [facility] MUSE * TROPONIN-I HIGH SENSITIVE BASELINE + 1HR (11/01/2023 7:57 PM CDT) [facility] Troponin I High Sensitive 4 <=14 ng/L 11/01/2023 8:43 PM CDT [facility] Blood BLOOD SPECIMEN / Unknown Venipuncture / Unknown 11/01/2023 7:57 PM CDT 11/01/2023 8:00 PM CDT Mckay Church MD LAB - CHEMISTRY ORDE MARY KATE Performing Organization Address City/[facility]/ZIP Co de Phone Number [facility] [address] [place] [phone], [facility] [phone] * (ABNORMAL) TEG 6 GLOBAL HEMOSTASIS W/ LYSIS (11/01/2023 7:56 PM CDT) Pathologist [facility] Citrated Kaolin R (Reaction Time) 3.4(L) 4.6 - 9.1 min 11/01/2023 9:12 PM CDT [facility] Comment:CK R result below no rmal range. Consistent with hypercoagulable clotting factors. Citrated Kaolin LY30 (Lysis) 0.0 0.0 - 2.6 % 11/01/2023 9:12 PM CDT [facility] Citrated Functional Fibrinogen MA (Max Amplitude) 18.6 15.0 - 32.0 mm 11/01/2023 9:12 PM CDT [facility] Citrated RapidTEG MA (Max Amplitude) 58.8 52.0 - 70.0 mm 11/01/2023 9:12 PM T [facility] Blood BLOOD SPECIMEN / Unknown Venipuncture / Unknown 11/01/2023 7:56 PM CDT 11/01/2023 8:15 PM CDT Kathryn Quach MD LAB - HEMATOLOGY ORD ERABLES [facility] [address] [place] [phone], [facility] [phone] * (ABNORMAL) TEG 6S PLATELET MAPPING (11/01/2023 7:56 PM CDT) TEGPLM (Max Amplitude) Koalin 61.0 53.0 - 68.0 mm 11/01/2023 8:53 PM [facility] TEGPLM (Max Amplitude) ACTF 11.4 2.0 - 19.0 mm 11/01/2023 8:53 PM [facility] TEGPLM (Max Amplitude) ADP 24.0(L) 45.0 - 69.0 mm 11/01/2023 8:53 PM [facility] Comment:ADP MA below normal range. Inhibition present. TEGPLM (Max Amplitude) AA 13.2(L) 51.0 - 71.0 mm 11/01/2023 8:53 PM [facility] Comment:AA MA below normal r wanda. Inhibition present. TEGPLM %Inhibition ADP 74.6(H) 0.0 - 17.0 % 11/01/2023 8:53 PM [facility] TEGPLM %Inhibition AA 96.4(H) 0.0 - 11.0 % 11/01/2023 8:53 PM [facility] TEGPLM %Aggregation ADP 25.4(L) 83.0 - 100.0 % 11/01/2023 8:53 PM [facility] TEGPLM % Aggregation AA 3.6(L) 89.0 - 100.0 % 11/01/2023 8:53 PM [facility] Blood BLOOD SPECIMEN / Unknown Venipuncture / Unknown 11/01/2023 7:56 PM CDT 11/01/2023 8:15 PM CDT Kathryn Quach MD LAB - HEMATOLOGY ORD ERABLES Performing Organization Address [facility]/ZIP Co de Phone Number [address] [phone], [facility] [phone] * (ABNORMAL) PT-INR [facility] (11/01/2023 7:56 PM CDT) Pathologist [facility] PT 15.5(H) 12.1 - 14.8 Seconds 11/01/2023 8:35 PM CDT [facility] INR 1.3 See Comment 11/01/2023 8:35 PM CDT [facility] Comment:The suggested therap eutic range for standard coumadin (warfarin) therapy is an INR of 2.0-3.0. For high-risk patients (Mechanical Mitral Valve Prosthesis, etc.), the suggested prophylactic therapeutic range is an INR of 2.5-3.5. Blood BLOOD SPECIMEN / Unknown Venipuncture / Unknown 11/01/2023 7:56 PM CDT 11/01/2023 8:01 PM CDT Kathryn Quach MD LAB - COAGULATION OR DERABLES Performing Organization Address [facility]/ZIP Co de Phone Number [address] [address], [place] [phone] * TYPE + SCREEN PANEL (11/01/2023 7:56 PM CDT) Pathologist [facility] Antibody Screen POS 8:50 PM CDT [facility] BLOOD BANK LAB ABO Rh O POS 11/01/2023 8:50 PM CDT [facility] B[facility] LAB Blood Bank BLOOD SPECIMEN / Unknown Venipuncture / Unknown 11/01/2023 7:56 PM CDT 11/01/2023 8:07 PM CDT Kathryn Quach MD LAB - BLOOD BANK ORD ERABLES [facility] LAB [address] [place] [id number], [place] [phone] * AUDI DIRECT (11/01/2023 7:56 PM CDT) Pathologist [facility] Direct Audi (KAVIN) NEG 11/01/2023 9:20 PM CDT [facility] B[facility]OD [facility] Blood Bank BLOOD SPECIMEN / Unknown Venipuncture / Unknown 11/01/2023 7:56 PM CDT 11/01/2023 8:07 PM CDT Kathryn Quach MD LAB - BLOOD BANK ORD ERABLES [facility] B[facility]OD [facility] LAB [address] [place] [address], [facility] [phone] * ANTIBODY IDENTIFICATION (11/01/2023 7:56 PM CDT) Pathologist [facility] Antibody 1 POS, Auto Anti-M 11/01/2023 11:49 PM CDT [facility] BLOOD [facility] LAB Blood Bank BLOOD SPECIMEN / Unknown Venipuncture / Unknown 11/01/2023 7:56 PM CDT 11/01/2023 8:07 PM CDT Kathryn Quach MD LAB - BLOOD BANK ORD ERABLES [facility] [address] [place] [address], [facility] [phone] * (ABNORMAL) CBC W AUTO DIFFERENTIAL (11/01/2023 7:56 PM CDT) [facility] WBC 6.8 4.0 - 10.7 x10E9/L 11/01/2023 9:34 PM CDT [facility] RBC Count 3.80(L) 3.90 - 5.20 x10E12/L 11/01/2023 9:34 PM CDT [facility] Hemoglobin 12.8 11.9 - 15.8 g/dL 11/01/2023 9:34 PM CDT [facility] Hematocrit 38.8 34.8 - 46.1 % 11/01/2023 9:34 PM CDT [facility] MCV 102.1(H) 80.0 - 98.0 fL 11/01/2023 9:34 PM [facility] MCH 33.7(H) 26.7 - 33.6 pg 11/01/2023 9:34 PM [facility] MCHC 33.0 31.7 - 36.3 g/dL 11/01/2023 9:34 PM [facility] Platelet Count 237 150 - 420 x10E9/L 11/01/2023 9:34 PM [facility] MPV 9.2 7.8 - 11.4 fL 11/01/2023 9:34 PM [facility] Neutrophil % 65.8 41.0 - 74.0 % 11/01/2023 9:34 PM [facility] Lymphocyte % 22.3 17.0 - 47.0 % 11/01/2023 9:34 PM [facility] Monocyte % 10.0 3.0 - 11.0 % 11/01/2023 9:34 PM [facility] Eosinophil % 0.9 0.0 - 7.0 % 11/01/2023 9:34 PM [facility] Basophil % 0.4 0.0 - 1.6 % 11/01/2023 9:34 PM [facility] Immature Granulocytes % 0.6 0.0 - 1.0 % 11/01/2023 9:34 PM [facility] Neutrophil Absolute 4.45 1.60 - 7.50 x10E9/L 11/01/2023 9:34 PM [facility] Lymphocyte Absolute 1.51 1.00 - 4.40 x10E9/L 11/01/2023 9:34 PM [facility] Monocyte Absolute 0.68 0.15 - 1.00 x10E9/L 11/01/2023 9:34 PM [facility] Eosinophil Absolute 0.06 0.00 - 0.60 x10E9/L 11/01/2023 9:34 PM [facility] Basophil Absolute 0.03 0.00 - 0.13 x10E9/L 11/01/2023 9:34 PM [facility] Blood BLOOD SPECIMEN / Unknown Venipuncture / Unknown 11/01/2023 7:56 PM CDT 11/01/2023 8:14 PM CDT Kathryn Quach MD LAB - HEMATOLOGY ROSMERY SAAB Performing Organization Address City/[facility]/ZIP Co de Phone Number [facility] [address] [place] [address], [facility] [phone] * ALCOHOL ETHYL BLOOD (11/01/2023 7:56 PM CDT) Ethanol (mg/dL) <10 <10 mg/dL 8:38 PM CDT [facility] Ethanol Calculated (g/dL) <0.010 <=0.010 g/dL 11/01/2023 8:38 PM CDT [facility] Blood BLOOD SPECIMEN / Unknown Venipuncture / Unknown 11/01/2023 7:56 PM CDT 11/01/2023 8:23 PM CDT Narrative [facility] - 11/01/2023 8:38 PM CDT Ethanol Interp <10: None Detected. Depression of AIRSET CASTER: >100 mg/dl Potentially Critical: >250 mg/dl Potentially Fatal >400 mg/dl Ethanol in the patient's blood will contribute to the osmolar gap. Ethanol's contribution to the osmolar gap can be estimated by dividing the concentration of ethanol in mg/dL by 4.6. This test is for clinical use only and does not equal a ADARSH for legal purposes. Kathryn Quach MD LAB - CHEMISTRY MARIA INES HARTMNAN [facility] [address] [place] [address], [facility] [phone] * CT CHEST ABDOMEN PELVIS W CONT - Abdomen-pelvis trauma, blunt or penetrating (11/01/2023 7:46 PM CDT) Anatomical Region Laterality Modality Chest, Abdomen, Pelvis Computed Tomography 11/01/2023 7:53 PM CDT Impressions 11/01/2023 10:30 PM CDT Impression: 1.Age-indeterminate, likely chronic, compression deformity of T5 vertebral body with mild height loss. Refer to dedicated spine CT. 2.Otherwise, no acute chest, abdomen, or pelvis. > Dictated by Paxton Whitley DO (vice president industrial relations). I, Milad Mcnulty MD have personally reviewed and interpreted this examination/study. > Interpreting Provider: Milad Mcnulty MD on 11/01/2023 10:30 PM Narrative 11/01/2023 10:30 PM CDT PROCEDURE: ??CT CHEST ABDOMEN PELVIS W CONT, DATE/TIME OF EXAM: ??11/01/2023 7:48 PM, LOCATION ??[facility] INDICATION: Trauma ADDITIONAL CLINICAL INFORMATION: Ordering Provider Reason For Exam: Technologist Note: Additional: COMPARISON: None. TECHNIQUE: CT of the chest, abdomen, and pelvis was performed after the uneventful administration of 100 mL of Isovue 370 intravenous contrast according to standard protocol. Findings: Chest: Lower Neck and Axillae: Multicystic lesion arising off the inferior aspect of the left thyroid lobe measuring 2.5 x 2.4 cm. Lungs: Mild bibasilar atelectasis. No suspicious pulmonary nodules are identified. Scattered calcified granulomas. No pleural fluid or pneumothorax is present. Heart and Pericardium: The cardiac chambers are normal in size. No pericardial fluid or thickening is present. Mediastinum and Brandi: No mediastinal hemorrhage is present. No enlarged lymph nodes are present. Thoracic Vasculature: No vascular abnormality is present. Abdomen/pelvis: Liver: Other than a 1.7 cm simple cyst in the hepatic dome, the liver is normal. Gallbladder and Bile Ducts: The gallbladder is absent. Spleen: Multiple calcified granulomas are noted in the spleen, likely sequelae of prior granulomatous disease. Pancreas: Fatty atrophy of the pancreas. Adrenals: Normal. Kidneys: Bilateral hypodense lesions throughout both kidneys, the largest measuring 3.2 cm, likely represent simple cysts. The kidneys enhance symmetrically without hydronephrosis. Gastrointestinal: There is a large hiatal hernia. There is a diverticulum arising at the junction of the second and third duodenum. The stomach and visualized loops of large and small bowel are unremarkable. Mesentery/Peritoneum/Retroperitoneum: No free intraperitoneal air. No free fluid in the abdomen or pelvis. Bladder: Normal. Reproductive Organs: The uterus is absent. Abdominal Vasculature: Atherosclerotic calcification of the aorta and its branch vessels. Bones: Bone windows demonstrate no suspicious lytic or blastic lesions. Age indeterminant compression deformity of the T5 vertebral body. Kyphoplasty/vertebroplasty material noted within the L1 vertebral body and moderate height loss. Multiple chronic left rib fractures. Severe bilateral hip osteoarthritis. Soft tissues: Bilateral breast implants with surrounding calcifications. Procedure Note Milad Mcnulty MD - 11/01/2023 PROCEDURE: CT CHEST ABDOMEN PELVIS W CONT, DATE/TIME OF EXAM:11/01/2023 7:48 PM, LOCATION [facility] INDICATION: Trauma ADDITIONAL CLINICAL INFORMATION: Ordering Provider Reason For Exam: Technologist Note: Additional: COMPARISON: None. TECHNIQUE: CT of the chest, abdomen, and pelvis was performed after the uneventful administration of 100 mL of Isovue 370 intravenous contrast according to standard protocol. Findings: Chest: Lower Neck and Axillae: Multicystic lesion arising off the inferior aspect of the left thyroidlobe measuring 2.5 x 2.4 cm. Lungs: Mild bibasilar atelectasis. No suspicious pulmonary nodules areidentified. Scattered calcified granulomas. No pleural fluid or pneumothorax is present. Heart and Pericardium: The cardiac chambers are normal in size. No pericardial fluid orthickening is present. Mediastinum and Brandi: No mediastinal hemorrhage is present. No enlarged lymph nodes arepresent. Thoracic Vasculature: No vascular abnormality is present. Abdomen/pelvis: Liver: Other than a 1.7 cm simple cyst in the hepatic dome, the liver isnormal. Gallbladder and Bile Ducts: The gallbladder is absent. Spleen: Multiple calcified granulomas are noted in the spleen, likely sequelaeof prior granulomatous disease. Pancreas: Fatty atrophy of the pancreas. Adrenals: Normal. Kidneys: Bilateral hypodense lesions throughout both kidneys, the largestmeasuring 3.2 cm, likely represent simple cysts. The kidneys enhance symmetrically without hydronephrosis. Gastrointestinal: There is a large hiatal hernia. There is a diverticulum arising at the junction of the second and third duodenum. The stomach and visualizedloops of large and small bowel are unremarkable. Mesentery/Peritoneum/Retroperitoneum: No free intraperitoneal air. No free fluid in the abdomen or pelvis. Bladder: Normal. Reproductive Organs: The uterus is absent. Abdominal Vasculature: Atherosclerotic calcification of the aorta and its branch vessels. Bones: Bone windows demonstrate no suspicious lytic or blastic lesions. Age indeterminant compression deformity of the T5 vertebral body. Kyphoplasty/vertebroplasty material noted within the L1 vertebral bodyand moderate height loss. Multiple chronic left rib fractures. Severebilateral hip osteoarthritis. Soft tissues: Bilateral breast implants with surrounding calcifications. Impression: 1.Age-indeterminate, likely chronic, compression deformity of [id number] body with mild height loss. Refer to dedicated spine CT. 2.Otherwise, no acute chest, abdomen, or pelvis. > Dictated by Paxton Whitley DO (vice president industrial relations). I, Milad Mcnulty MD have personally reviewed and interpreted this examination/study. > Interpreting Provider: Milad Mcnulty MD on 11/01/2023 10:30 PM Kathryn Quach MD CT ORDERABLES * CT LUMBAR SPINE WO CONTRAST - T/L-spine trauma, Spine fracture (11/01/2023 7:46 PM CDT) Anatomical Region Laterality Modality Spine Computed Tomogra phy 11/01/2023 9:56 PM CDT Impressions 11/01/2023 10:38 PM CDT IMPRESSION: 1.No acute intracranial abnormality. 2.No acute maxillofacial fracture. 3.No acute fracture or traumatic malalignment of the cervical spine. 4.Age-indeterminate compression fracture deformities of the T5 and T6 vertebral bodies resulting in 30% height loss and associated with a thin sclerotic line through the superior endplates at these levels, which may represent kjdos-jg-tkitllzk microtrabecular fractures. No evidence of retropulsion. Recommend correlation with point tenderness at these levels to assess for acuity. 5.No acute fracture or traumatic malalignment of the lumbar spine. 6.Heterogeneous left thyroid lobe with an inferior pole exophytic nodule measuring approximately 2.7 x 2.3 cm in the axial plane. Recommend follow-up nonemergent outpatient thyroid ultrasound if not recently performed. 7.Please refer to concurrently reported chest, abdomen, and pelvis CT for description of additional nonspine-related abnormalities. > Interpreting Provider: Bronson Elliott MD, PhD on 11/01/2023 10:38 PM Narrative 11/01/2023 10:38 PM CDT EXAM: CT HEAD WO CONTRAST, CT FACIAL BONES WO CONTRAST, CT CERVICAL SPINE WO CONTRAST, CT THORACIC SPINE WO CONTRAST, CT LUMBAR SPINE WO CONTRAST, DATE/TIME OF EXAM: 11/01/2023 7:48 PM, LOCATION: ??[facility] HISTORY: Trauma ADDITIONAL CLINICAL INFORMATION: Ordering Provider Reason For Exam: ??Rule out fracture. EXAMINATION: CT scan of the head and facial bones/paranasal sinuses in addition to CT scan of the cervical, thoracic, and lumbar spine without intravenous contrast TECHNIQUE: CT of the head, facial bones/paranasal sinuses, and cervical spine was performed without intravenous contrast according to standard protocol. CT dose reduction technique was used, including Automated Exposure Control. Reformatted axial, sagittal, and coronal images of the thoracic and lumbar spine were obtained by the technologist from a concurrently performed chest, abdomen, and pelvis CT and sent to the workstation for review. COMPARISON: No prior similar studies are available for comparison. FINDINGS: HEAD: Streak/beam hardening artifact from patient's dental amalgam partially limits assessment of the posterior fossa. Within this limitation, the following assessment is made: BRAIN PARENCHYMA: No acute hemorrhage, large vascular territory infarct, or mass effect. Scattered white matter hypodensities, which are nonspecific but likely represents the sequela of chronic microangiopathic change. Mild generalized parenchymal volume loss, which is commensurate for age. VENTRICLES/EXTRA-AXIAL SPACES: No ventriculomegaly or extra-axial collection. Basal cisterns are patent. EXTRACRANIAL STRUCTURES: No acute calvarial abnormality. Incidentally noted hyperostosis frontalis interna. Small focal hematoma of the left parieto-occipital scalp measuring up to 8 mm in thickness (6/73, /), which is associated with a small laceration. Mild calcific atherosclerosis of the carotid siphons. FACE/SINUSES: BONES: No acute maxillofacial fracture. Chronic healed fracture deformities of the nasal bones. Mild degenerative changes of the left temporomandibular joint. Osseous structures are demineralized. PARANASAL SINUSES: Clear. NASAL CAVITY: Clear. Midline nasal septum without a significant spur. MASTOID AIR CELLS/MIDDLE EAR CAVITIES: Clear. ORBITS: Bilateral lens replacement and scleral calcifications; otherwise, orbits are unremarkable. SOFT TISSUES: Unremarkable. OTHER: Large amount of cerumen within the left external auditory canal. CERVICAL SPINE: ALIGNMENT: Straightening of cervical spine lordotic curvature, which may be positional or related to muscle spasm. No traumatic malalignment. ATLANTOAXIAL JOINT: The dens is intact, the lateral masses of C1 are normally aligned relative to C2, and the atlantodental interval is normal. BONES: Vertebral body heights are maintained without evidence of acute fracture. Osseous structures are markedly demineralized. DISCS: Multilevel mild disc space narrowing. DEGENERATIVE CHANGES: Overall mild multilevel degenerative changes, characterized by varying degrees of posterior disc osteophyte complexes, facet arthropathy, and uncovertebral joint hypertrophy. ?? SPINAL CANAL/NEUROFORAMEN: Multilevel spinal canal stenoses that is notably moderate at the C5-C6 level secondary to posterior disc bulges. Multilevel neuroforaminal narrowing that is notably moderate at the bilateral C5-C6 level secondary to uncovertebral joint hypertrophy. SOFT TISSUES: No prevertebral soft tissue swelling. Surgically absent right thyroid lobe. Heterogeneous left thyroid lobe with an inferior pole exophytic nodule measuring approximately 2.7 x 2.3 cm in the axial plane (). OTHER: Mild dependent subsegmental atelectasis of the lung apices. Brwp-eo-fexrwmak calcific atherosclerosis of the carotid bulbs and moderate calcific atherosclerosis of the common carotid arteries. Multiple calcified mediastinal lymph nodes that is suggestive of prior healed granulomatous disease. THORACIC SPINE: ALIGNMENT: Mild kyphosis centered at the T5 level and ldpe-qq-gxjgkgsh levoconvex curvature of the upper thoracic spine without significant listhesis. No traumatic malalignment. BONES: Age-indeterminate compression fracture deformity of the T5 vertebral body superior endplate associated with a thin sclerotic line and with approximately 30% height loss anteriorly, which may represent an uwcvg-wg-cjoeqjpn microtrabecular fracture. Age-indeterminate compression fracture deformity of the T6 vertebral body superior endplate associated with a thin sclerotic line and with approximately 30% height loss centrally, which may represent an jviol-sf-cchwuspl microtrabecular fracture. Chronic-appearing taiizra-nj-yefn height loss remaining thoracic vertebral bodies. No retropulsion at any level. Osseous structures are markedly demineralized. DISCS: Multilevel mild disc space narrowing. DEGENERATIVE CHANGES: Overall vvly-li-ldghulhn multilevel degenerative changes. ?? SPINAL CANAL/NEUROFORAMEN: No significant spinal canal stenosis. High-grade neuroforaminal narrowing at the right T2-T3 through T5-T6 levels and left T10-T11 level in addition to mvwn-kv-nqgybfev neuroforaminal narrowing elsewhere. SOFT TISSUES: Visualized soft tissues are normal. OTHER: Dependent atelectasis of the lungs bilaterally. Mildly tortuous thoracic aorta with yzzgqevb-co-aakmsp calcific atherosclerosis. Multiple calcified mediastinal lymph nodes that is suggestive of prior healed granulomatous disease. Moderate-sized hiatal hernia. These findings are better evaluated on concurrently reported chest, abdomen, and pelvis CT. LUMBAR SPINE: ALIGNMENT: Mild dextroconvex curvature of the lumbar spine with degenerative-related mild retrolisthesis of L4 on L5 and grade 1 anterolisthesis of L5 on S1 (measuring 7 mm). No traumatic malalignment. BONES: No evidence of an acute fracture. Chronic anterior compression fracture deformity of the L1 vertebral body resulting in approximately 50% height loss associated with approximately 4 mm retropulsion and evidence prior vertebroplasty/kyphoplasty change. Remaining vertebral body heights are maintained. 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 Osseous structures are markedly demineralized. DISCS: Multilevel advanced disc space narrowing and vacuum disc phenomena at all levels. DEGENERATIVE CHANGES: Overall foukiacp-og-emedpo multilevel degenerative change, characterized by varying degrees of posterior disc bulges, ligamentum flavum hypertrophy, and facet arthropathy. ?? SPINAL CANAL/NEUROFORAMEN: Multilevel spinal canal stenoses that is notably mild at the T12-L1 and L2-L3 levels, hovrbshe-iz-ynjmcs at the L3-L4 and L4-L5 levels, and moderate at the L5-S1 level secondary to posterior disc bulges, ligamentum flavum hypertrophy, and bilateral facet arthropathy. Multilevel neuroforaminal narrowing that is predominantly moderate from the bilateral L2-L3 through L5-S1 levels. SOFT TISSUES: Symmetric atrophy of the posterior paraspinal musculature and mild edema of the posterior paraspinal fat. OTHER: Mild degenerative changes of the right greater than left sacroiliac joints. Left kidney with a simple cyst measuring up to 3.1 cm. Scattered colonic diverticula without evidence of diverticulitis. Extensive calcific atherosclerosis of the abdominal aorta and proximal branches. These findings are better evaluated on concurrently reported chest, abdomen, and pelvis CT. Procedure Note Bronson Elliott MD - 11/01/2023 EXAM: CT HEAD WO CONTRAST, CT FACIAL BONES WO CONTRAST, CT CERVICALSPINE WO CONTRAST, CT THORACIC SPINE WO CONTRAST, CT LUMBAR SPINE WO CONTRAST, DATE/TIME OF EXAM: 11/01/2023 7:48 PM, LOCATION: [facility] HISTORY: Trauma ADDITIONAL CLINICAL INFORMATION: Ordering Provider Reason For Exam: Rule out fracture. EXAMINATION: CT scan of the head and facial bones/paranasal sinuses in addition to CT scan of the cervical, thoracic, and lumbar spine without intravenous contrast TECHNIQUE: CT of the head, facial bones/paranasal sinuses, and cervical spine was performed without intravenous contrast according to standard protocol.CT dose reduction technique was used, including Automated Exposure Control. Reformatted axial, sagittal, and coronal images of the thoracic andlumbar spine were obtained by the technologist from a concurrently performed chest, abdomen, and pelvis CT and sent to the workstation for review. COMPARISON: No prior similar studies are available for comparison. FINDINGS: HEAD: Streak/beam hardening artifact from patient's dental amalgam partially limits assessment of the posterior fossa. Within this limitation, the following assessment is made: BRAIN PARENCHYMA: No acute hemorrhage, large vascular territory infarct,or mass effect. Scattered white matter hypodensities, which are nonspecific but likely represents the sequela of chronic microangiopathic change.Mild generalized parenchymal volume loss, which is commensurate for age. VENTRICLES/EXTRA-AXIAL SPACES: No ventriculomegaly or extra-axial collection. Basal cisterns are patent. EXTRACRANIAL STRUCTURES: No acute calvarial abnormality. Incidentallynoted hyperostosis frontalis interna. Small focal hematoma of the left parieto-occipital scalp measuring up to 8 mm in thickness (6/73, 7/20), which is associated with a small laceration. Mild calcificatherosclerosis of the carotid siphons. FACE/SINUSES: BONES: No acute maxillofacial fracture. Chronic healed fracturedeformities of the nasal bones. Mild degenerative changes of the lefttemporomandibular joint. Osseous structures are demineralized. PARANASAL SINUSES: Clear. NASAL CAVITY: Clear. Midline nasal septum without a significant spur. MASTOID AIR CELLS/MIDDLE EAR CAVITIES: Clear. ORBITS: Bilateral lens replacement and scleral calcifications;otherwise, orbits are unremarkable. SOFT TISSUES: Unremarkable. OTHER: Large amount of cerumen within the left external auditory canal. CERVICAL SPINE: ALIGNMENT: Straightening of cervical spine lordotic curvature, which maybe positional or related to muscle spasm. No traumatic malalignment. ATLANTOAXIAL JOINT: The dens is intact, the lateral masses of C1 are normally aligned relative to C2, and the atlantodental interval is normal. BONES: Vertebral body heights are maintained without evidence of acute fracture. Osseous structures are markedly demineralized. DISCS: Multilevel mild disc space narrowing. DEGENERATIVE CHANGES: Overall mild multilevel degenerative changes, characterized by varying degrees of posterior disc osteophyte complexes, facet arthropathy, and uncovertebral joint hypertrophy. SPINAL CANAL/NEUROFORAMEN: Multilevel spinal canal stenoses that isnotably moderate at the C5-C6 level secondary to posterior disc bulges.Multilevel neuroforaminal narrowing that is notably moderate at the bilateral C5-C6 level secondary to uncovertebral joint hypertrophy. SOFT TISSUES: No prevertebral soft tissue swelling. Surgically absentright thyroid lobe. Heterogeneous left thyroid lobe with an inferior pole exophytic nodule measuring approximately 2.7 x 2.3 cm in the axial plane (/). OTHER: Mild dependent subsegmental atelectasis of the lung apices. Andw-ax-dhmtusjv calcific atherosclerosis of the carotid bulbs andmoderate calcific atherosclerosis of the common carotid arteries. Multiplecalcified mediastinal lymph nodes that is suggestive of prior healed granulomatous disease. THORACIC SPINE: ALIGNMENT: Mild kyphosis centered at the T5 level and gvzp-zr-bgkoypga levoconvex curvature of the upper thoracic spine without significant listhesis. No traumatic malalignment. BONES: Age-indeterminate compression fracture deformity of the G0fxhfspyrf body superior endplate associated with a thin sclerotic line and with approximately 30% height loss anteriorly, which may represent an vkihf-ol-xniszehw microtrabecular fracture. Age-indeterminatecompression fracture deformity of the T6 vertebral body superior endplate associated with a thin sclerotic line and with approximately 30% height loss centrally, which may represent an zmzhp-po-kcbuvsmx microtrabecular fracture. Chronic-appearing jxbmjmb-kg-vhnu height loss remainingthoracic vertebral bodies. No retropulsion at any level. Osseous structures are markedly demineralized. DISCS: Multilevel mild disc space narrowing. DEGENERATIVE CHANGES: Overall luqx-sq-qphawbwg multilevel degenerative changes. SPINAL CANAL/NEUROFORAMEN: No significant spinal canal stenosis.High-grade neuroforaminal narrowing at the right T2-T3 through T5-T6 levels andleft T10-T11 level in addition to kghj-tx-esdvkqhq neuroforaminal narrowing elsewhere. SOFT TISSUES: Visualized soft tissues are normal. OTHER: Dependent atelectasis of the lungs bilaterally. Mildly tortuous thoracic aorta with efswagpv-zl-diajzo calcific atherosclerosis.Multiple calcified mediastinal lymph nodes that is suggestive of prior healed granulomatous disease. Moderate-sized hiatal hernia. These findings are better evaluated on concurrently reported chest, abdomen, and pelvis CT. LUMBAR SPINE: ALIGNMENT: Mild dextroconvex curvature of the lumbar spine with degenerative-related mild retrolisthesis of L4 on L5 and grade 1 anterolisthesis of L5 on S1 (measuring 7 mm). No traumatic malalignment. BONES: No evidence of an acute fracture. Chronic anterior compression fracture deformity of the L1 vertebral body resulting in lcjjazdrgfscr67% height loss associated with approximately 4 mm retropulsion and evidence prior vertebroplasty/kyphoplasty change. Remaining vertebral bodyheights are maintained. 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 Osseous structures are markedly demineralized. DISCS: Multilevel advanced disc space narrowing and vacuum discphenomena at all levels. DEGENERATIVE CHANGES: Overall nedetply-sk-csamiw multilevel degenerative change, characterized by varying degrees of posterior disc bulges, ligamentum flavum hypertrophy, and facet arthropathy. SPINAL CANAL/NEUROFORAMEN: Multilevel spinal canal stenoses that isnotably mild at the T12-L1 and L2-L3 levels, wfqewycl-cb-vlmzvi at the L3-L4 and L4-L5 levels, and moderate at the L5-S1 level secondary to posteriordisc bulges, ligamentum flavum hypertrophy, and bilateral facet arthropathy. Multilevel neuroforaminal narrowing that is predominantly moderate fromthe bilateral L2-L3 through L5-S1 levels. SOFT TISSUES: Symmetric atrophy of the posterior paraspinal musculatureand mild edema of the posterior paraspinal fat. OTHER: Mild degenerative changes of the right greater than leftsacroiliac joints. Left kidney with a simple cyst measuring up to 3.1 cm. Scattered colonic diverticula without evidence of diverticulitis. Extensivecalcific atherosclerosis of the abdominal aorta and proximal branches. These findings are better evaluated on concurrently reported chest, abdomen,and pelvis CT. IMPRESSION: 1.No acute intracranial abnormality. 2.No acute maxillofacial fracture. 3.No acute fracture or traumatic malalignment of the cervical spine. 4.Age-indeterminate compression fracture deformities of the T5 and T6 vertebral bodies resulting in 30% height loss and associated with a thin sclerotic line through the superior endplates at these levels, which may represent jebyg-ll-ofjqwswj microtrabecular fractures. No evidence of retropulsion. Recommend correlation with point tenderness at theselevels to assess for acuity. 5.No acute fracture or traumatic malalignment of the lumbar spine. 6.Heterogeneous left thyroid lobe with an inferior pole exophytic nodule measuring approximately 2.7 x 2.3 cm in the axial plane. Recommend follow-up nonemergent outpatient thyroid ultrasound if not recently performed. 7.Please refer to concurrently reported chest, abdomen, and pelvis CTfor description of additional nonspine-related abnormalities. > Interpreting Provider: Bronson Elliott MD, PhD on 11/01/2023 10:38 PM Kathryn Quach MD CT ORDERABLES * CT THORACIC SPINE WO CONTRAST - T/L-spine trauma, spine fracture (11/01/2023 7:46 PM CDT) Anatomical Region Laterality Modality Spine Computed Tomogra phy 11/01/2023 9:56 PM CDT Impressions 11/01/2023 10:38 PM CDT IMPRESSION: 1.No acute intracranial abnormality. 2.No acute maxillofacial fracture. 3.No acute fracture or traumatic malalignment of the cervical spine. 4.Age-indeterminate compression fracture deformities of the T5 and T6 vertebral bodies resulting in 30% height loss and associated with a thin sclerotic line through the superior endplates at these levels, which may represent nwuew-sh-izujnrbc microtrabecular fractures. No evidence of retropulsion. Recommend correlation with point tenderness at these levels to assess for acuity. 5.No acute fracture or traumatic malalignment of the lumbar spine. 6.Heterogeneous left thyroid lobe with an inferior pole exophytic nodule measuring approximately 2.7 x 2.3 cm in the axial plane. Recommend follow-up nonemergent outpatient thyroid ultrasound if not recently performed. 7.Please refer to concurrently reported chest, abdomen, and pelvis CT for description of additional nonspine-related abnormalities. > Interpreting Provider: Bronson Elliott MD, PhD on 11/01/2023 10:38 PM Narrative 11/01/2023 10:38 PM CDT EXAM: CT HEAD WO CONTRAST, CT FACIAL BONES WO CONTRAST, CT CERVICAL SPINE WO CONTRAST, CT THORACIC SPINE WO CONTRAST, CT LUMBAR SPINE WO CONTRAST, DATE/TIME OF EXAM: 11/01/2023 7:48 PM, LOCATION: ??[facility] HISTORY: Trauma ADDITIONAL CLINICAL INFORMATION: Ordering Provider Reason For Exam: ??Rule out fracture. EXAMINATION: CT scan of the head and facial bones/paranasal sinuses in addition to CT scan of the cervical, thoracic, and lumbar spine without intravenous contrast TECHNIQUE: CT of the head, facial bones/paranasal sinuses, and cervical spine was performed without intravenous contrast according to standard protocol. CT dose reduction technique was used, including Automated Exposure Control. Reformatted axial, sagittal, and coronal images of the thoracic and lumbar spine were obtained by the technologist from a concurrently performed chest, abdomen, and pelvis CT and sent to the workstation for review. COMPARISON: No prior similar studies are available for comparison. FINDINGS: HEAD: Streak/beam hardening artifact from patient's dental amalgam partially limits assessment of the posterior fossa. Within this limitation, the following assessment is made: BRAIN PARENCHYMA: No acute hemorrhage, large vascular territory infarct, or mass effect. Scattered white matter hypodensities, which are nonspecific but likely represents the sequela of chronic microangiopathic change. Mild generalized parenchymal volume loss, which is commensurate for age. VENTRICLES/EXTRA-AXIAL SPACES: No ventriculomegaly or extra-axial collection. Basal cisterns are patent. EXTRACRANIAL STRUCTURES: No acute calvarial abnormality. Incidentally noted hyperostosis frontalis interna. Small focal hematoma of the left parieto-occipital scalp measuring up to 8 mm in thickness (6/73, 7/20), which is associated with a small laceration. Mild calcific atherosclerosis of the carotid siphons. FACE/SINUSES: BONES: No acute maxillofacial fracture. Chronic healed fracture deformities of the nasal bones. Mild degenerative changes of the left temporomandibular joint. Osseous structures are demineralized. PARANASAL SINUSES: Clear. NASAL CAVITY: Clear. Midline nasal septum without a significant spur. MASTOID AIR CELLS/MIDDLE EAR CAVITIES: Clear. ORBITS: Bilateral lens replacement and scleral calcifications; otherwise, orbits are unremarkable. SOFT TISSUES: Unremarkable. OTHER: Large amount of cerumen within the left external auditory canal. CERVICAL SPINE: ALIGNMENT: Straightening of cervical spine lordotic curvature, which may be positional or related to muscle spasm. No traumatic malalignment. ATLANTOAXIAL JOINT: The dens is intact, the lateral masses of C1 are normally aligned relative to C2, and the atlantodental interval is normal. BONES: Vertebral body heights are maintained without evidence of acute fracture. Osseous structures are markedly demineralized. DISCS: Multilevel mild disc space narrowing. DEGENERATIVE CHANGES: Overall mild multilevel degenerative changes, characterized by varying degrees of posterior disc osteophyte complexes, facet arthropathy, and uncovertebral joint hypertrophy. ?? SPINAL CANAL/NEUROFORAMEN: Multilevel spinal canal stenoses that is notably moderate at the C5-C6 level secondary to posterior disc bulges. Multilevel neuroforaminal narrowing that is notably moderate at the bilateral C5-C6 level secondary to uncovertebral joint hypertrophy. SOFT TISSUES: No prevertebral soft tissue swelling. Surgically absent right thyroid lobe. Heterogeneous left thyroid lobe with an inferior pole exophytic nodule measuring approximately 2.7 x 2.3 cm in the axial plane (5/219). OTHER: Mild dependent subsegmental atelectasis of the lung apices. Idgk-qy-hoxlartr calcific atherosclerosis of the carotid bulbs and moderate calcific atherosclerosis of the common carotid arteries. Multiple calcified mediastinal lymph nodes that is suggestive of prior healed granulomatous disease. THORACIC SPINE: ALIGNMENT: Mild kyphosis centered at the T5 level and thbv-qy-ccvnnupf levoconvex curvature of the upper thoracic spine without significant listhesis. No traumatic malalignment. BONES: Age-indeterminate compression fracture deformity of the T5 vertebral body superior endplate associated with a thin sclerotic line and with approximately 30% height loss anteriorly, which may represent an kjmqn-wv-stldrghp microtrabecular fracture. Age-indeterminate compression fracture deformity of the T6 vertebral body superior endplate associated with a thin sclerotic line and with approximately 30% height loss centrally, which may represent an vbequ-vk-sjgnixhq microtrabecular fracture. Chronic-appearing qppoqaj-zt-exww height loss remaining thoracic vertebral bodies. No retropulsion at any level. Osseous structures are markedly demineralized. DISCS: Multilevel mild disc space narrowing. DEGENERATIVE CHANGES: Overall smpu-hx-jwcnkgzt multilevel degenerative changes. ?? SPINAL CANAL/NEUROFORAMEN: No significant spinal canal stenosis. High-grade neuroforaminal narrowing at the right T2-T3 through T5-T6 levels and left T10-T11 level in addition to rfdm-yh-vktlvckg neuroforaminal narrowing elsewhere. SOFT TISSUES: Visualized soft tissues are normal. OTHER: Dependent atelectasis of the lungs bilaterally. Mildly tortuous thoracic aorta with kalbesru-gk-jrugeq calcific atherosclerosis. Multiple calcified mediastinal lymph nodes that is suggestive of prior healed granulomatous disease. Moderate-sized hiatal hernia. These findings are better evaluated on concurrently reported chest, abdomen, and pelvis CT. LUMBAR SPINE: ALIGNMENT: Mild dextroconvex curvature of the lumbar spine with degenerative-related mild retrolisthesis of L4 on L5 and grade 1 anterolisthesis of L5 on S1 (measuring 7 mm). No traumatic malalignment. BONES: No evidence of an acute fracture. Chronic anterior compression fracture deformity of the L1 vertebral body resulting in approximately 50% height loss associated with approximately 4 mm retropulsion and evidence prior vertebroplasty/kyphoplasty change. Remaining vertebral body heights are maintained. 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 Osseous structures are markedly demineralized. DISCS: Multilevel advanced disc space narrowing and vacuum disc phenomena at all levels. DEGENERATIVE CHANGES: Overall jrydbnth-qq-cbihey multilevel degenerative change, characterized by varying degrees of posterior disc bulges, ligamentum flavum hypertrophy, and facet arthropathy. ?? SPINAL CANAL/NEUROFORAMEN: Multilevel spinal canal stenoses that is notably mild at the T12-L1 and L2-L3 levels, mywwwrbb-mq-hkbimu at the L3-L4 and L4-L5 levels, and moderate at the L5-S1 level secondary to posterior disc bulges, ligamentum flavum hypertrophy, and bilateral facet arthropathy. Multilevel neuroforaminal narrowing that is predominantly moderate from the bilateral L2-L3 through L5-S1 levels. SOFT TISSUES: Symmetric atrophy of the posterior paraspinal musculature and mild edema of the posterior paraspinal fat. OTHER: Mild degenerative changes of the right greater than left sacroiliac joints. Left kidney with a simple cyst measuring up to 3.1 cm. Scattered colonic diverticula without evidence of diverticulitis. Extensive calcific atherosclerosis of the abdominal aorta and proximal branches. These findings are better evaluated on concurrently reported chest, abdomen, and pelvis CT. Procedure Note Bronson Elliott MD - 11/01/2023 EXAM: CT HEAD WO CONTRAST, CT FACIAL BONES WO CONTRAST, CT CERVICALSPINE WO CONTRAST, CT THORACIC SPINE WO CONTRAST, CT LUMBAR SPINE WO CONTRAST, DATE/TIME OF EXAM: 11/01/2023 7:48 PM, LOCATION: [facility] HISTORY: Trauma ADDITIONAL CLINICAL INFORMATION: Ordering Provider Reason For Exam: Rule out fracture. EXAMINATION: CT scan of the head and facial bones/paranasal sinuses in addition to CT scan of the cervical, thoracic, and lumbar spine without intravenous contrast TECHNIQUE: CT of the head, facial bones/paranasal sinuses, and cervical spine was performed without intravenous contrast according to standard protocol.CT dose reduction technique was used, including Automated Exposure Control. Reformatted axial, sagittal, and coronal images of the thoracic andlumbar spine were obtained by the technologist from a concurrently performed chest, abdomen, and pelvis CT and sent to the workstation for review. COMPARISON: No prior similar studies are available for comparison. FINDINGS: HEAD: Streak/beam hardening artifact from patient's dental amalgam partially limits assessment of the posterior fossa. Within this limitation, the following assessment is made: BRAIN PARENCHYMA: No acute hemorrhage, large vascular territory infarct,or mass effect. Scattered white matter hypodensities, which are nonspecific but likely represents the sequela of chronic microangiopathic change.Mild generalized parenchymal volume loss, which is commensurate for age. VENTRICLES/EXTRA-AXIAL SPACES: No ventriculomegaly or extra-axial collection. Basal cisterns are patent. EXTRACRANIAL STRUCTURES: No acute calvarial abnormality. Incidentallynoted hyperostosis frontalis interna. Small focal hematoma of the left parieto-occipital scalp measuring up to 8 mm in thickness (6/73, 7/20), which is associated with a small laceration. Mild calcificatherosclerosis of the carotid siphons. FACE/SINUSES: BONES: No acute maxillofacial fracture. Chronic healed fracturedeformities of the nasal bones. Mild degenerative changes of the lefttemporomandibular joint. Osseous structures are demineralized. PARANASAL SINUSES: Clear. NASAL CAVITY: Clear. Midline nasal septum without a significant spur. MASTOID AIR CELLS/MIDDLE EAR CAVITIES: Clear. ORBITS: Bilateral lens replacement and scleral calcifications;otherwise, orbits are unremarkable. SOFT TISSUES: Unremarkable. OTHER: Large amount of cerumen within the left external auditory canal. CERVICAL SPINE: ALIGNMENT: Straightening of cervical spine lordotic curvature, which maybe positional or related to muscle spasm. No traumatic malalignment. ATLANTOAXIAL JOINT: The dens is intact, the lateral masses of C1 are normally aligned relative to C2, and the atlantodental interval is normal. BONES: Vertebral body heights are maintained without evidence of acute fracture. Osseous structures are markedly demineralized. DISCS: Multilevel mild disc space narrowing. DEGENERATIVE CHANGES: Overall mild multilevel degenerative changes, characterized by varying degrees of posterior disc osteophyte complexes, facet arthropathy, and uncovertebral joint hypertrophy. SPINAL CANAL/NEUROFORAMEN: Multilevel spinal canal stenoses that isnotably moderate at the C5-C6 level secondary to posterior disc bulges.Multilevel neuroforaminal narrowing that is notably moderate at the bilateral C5-C6 level secondary to uncovertebral joint hypertrophy. SOFT TISSUES: No prevertebral soft tissue swelling. Surgically absentright thyroid lobe. Heterogeneous left thyroid lobe with an inferior pole exophytic nodule measuring approximately 2.7 x 2.3 cm in the axial plane (5/219). OTHER: Mild dependent subsegmental atelectasis of the lung apices. Zgor-yq-bsgangpq calcific atherosclerosis of the carotid bulbs andmoderate calcific atherosclerosis of the common carotid arteries. Multiplecalcified mediastinal lymph nodes that is suggestive of prior healed granulomatous disease. THORACIC SPINE: ALIGNMENT: Mild kyphosis centered at the T5 level and zjvt-qq-nazsbwzc levoconvex curvature of the upper thoracic spine without significant listhesis. No traumatic malalignment. BONES: Age-indeterminate compression fracture deformity of the H4mtrfbeufs body superior endplate associated with a thin sclerotic line and with approximately 30% height loss anteriorly, which may represent an wbzaa-rb-ubgawpig microtrabecular fracture. Age-indeterminatecompression fracture deformity of the T6 vertebral body superior endplate associated with a thin sclerotic line and with approximately 30% height loss centrally, which may represent an qksus-gc-jhkpdbmb microtrabecular fracture. Chronic-appearing gxxngti-eh-vdbh height loss remainingthoracic vertebral bodies. No retropulsion at any level. Osseous structures are markedly demineralized. DISCS: Multilevel mild disc space narrowing. DEGENERATIVE CHANGES: Overall azsl-rn-ddsejvgf multilevel degenerative changes. SPINAL CANAL/NEUROFORAMEN: No significant spinal canal stenosis.High-grade neuroforaminal narrowing at the right T2-T3 through T5-T6 levels andleft T10-T11 level in addition to jxlc-cp-uswpjeii neuroforaminal narrowing elsewhere. SOFT TISSUES: Visualized soft tissues are normal. OTHER: Dependent atelectasis of the lungs bilaterally. Mildly tortuous thoracic aorta with azpypgst-ul-sgcztg calcific atherosclerosis.Multiple calcified mediastinal lymph nodes that is suggestive of prior healed granulomatous disease. Moderate-sized hiatal hernia. These findings are better evaluated on concurrently reported chest, abdomen, and pelvis CT. LUMBAR SPINE: ALIGNMENT: Mild dextroconvex curvature of the lumbar spine with degenerative-related mild retrolisthesis of L4 on L5 and grade 1 anterolisthesis of L5 on S1 (measuring 7 mm). No traumatic malalignment. BONES: No evidence of an acute fracture. Chronic anterior compression fracture deformity of the L1 vertebral body resulting in zhontahurjdlp60% height loss associated with approximately 4 mm retropulsion and evidence prior vertebroplasty/kyphoplasty change. Remaining vertebral bodyheights are maintained. 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 Osseous structures are markedly demineralized. DISCS: Multilevel advanced disc space narrowing and vacuum discphenomena at all levels. DEGENERATIVE CHANGES: Overall useuofzh-lc-irqwur multilevel degenerative change, characterized by varying degrees of posterior disc bulges, ligamentum flavum hypertrophy, and facet arthropathy. SPINAL CANAL/NEUROFORAMEN: Multilevel spinal canal stenoses that isnotably mild at the T12-L1 and L2-L3 levels, mvjrocsm-bf-xjtrpq at the L3-L4 and L4-L5 levels, and moderate at the L5-S1 level secondary to posteriordisc bulges, ligamentum flavum hypertrophy, and bilateral facet arthropathy. Multilevel neuroforaminal narrowing that is predominantly moderate fromthe bilateral L2-L3 through L5-S1 levels. SOFT TISSUES: Symmetric atrophy of the posterior paraspinal musculatureand mild edema of the posterior paraspinal fat. OTHER: Mild degenerative changes of the right greater than leftsacroiliac joints. Left kidney with a simple cyst measuring up to 3.1 cm. Scattered colonic diverticula without evidence of diverticulitis. Extensivecalcific atherosclerosis of the abdominal aorta and proximal branches. These findings are better evaluated on concurrently reported chest, abdomen,and pelvis CT. IMPRESSION: 1.No acute intracranial abnormality. 2.No acute maxillofacial fracture. 3.No acute fracture or traumatic malalignment of the cervical spine. 4.Age-indeterminate compression fracture deformities of the T5 and T6 vertebral bodies resulting in 30% height loss and associated with a thin sclerotic line through the superior endplates at these levels, which may represent jrwaf-nl-pfxfltgh microtrabecular fractures. No evidence of retropulsion. Recommend correlation with point tenderness at theselevels to assess for acuity. 5.No acute fracture or traumatic malalignment of the lumbar spine. 6.Heterogeneous left thyroid lobe with an inferior pole exophytic nodule measuring approximately 2.7 x 2.3 cm in the axial plane. Recommend follow-up nonemergent outpatient thyroid ultrasound if not recently performed. 7.Please refer to concurrently reported chest, abdomen, and pelvis CTfor description of additional nonspine-related abnormalities. > Interpreting Provider: Bronson Elliott MD, PhD on 11/01/2023 10:38 PM Kathryn Quach MD CT ORDERABLES * CT CERVICAL SPINE WO CONTRAST (11/01/2023 7:46 PM CDT) Anatomical Region Laterality Modality Spine Computed Tomogra phy 11/01/2023 9:56 PM CDT Impressions 11/01/2023 10:38 PM CDT IMPRESSION: 1.No acute intracranial abnormality. 2.No acute maxillofacial fracture. 3.No acute fracture or traumatic malalignment of the cervical spine. 4.Age-indeterminate compression fracture deformities of the T5 and T6 vertebral bodies resulting in 30% height loss and associated with a thin sclerotic line through the superior endplates at these levels, which may represent pdmvs-uz-yjukskwh microtrabecular fractures. No evidence of retropulsion. Recommend correlation with point tenderness at these levels to assess for acuity. 5.No acute fracture or traumatic malalignment of the lumbar spine. 6.Heterogeneous left thyroid lobe with an inferior pole exophytic nodule measuring approximately 2.7 x 2.3 cm in the axial plane. Recommend follow-up nonemergent outpatient thyroid ultrasound if not recently performed. 7.Please refer to concurrently reported chest, abdomen, and pelvis CT for description of additional nonspine-related abnormalities. > Interpreting Provider: Bronson Elliott MD, PhD on 11/01/2023 10:38 PM Narrative 11/01/2023 10:38 PM CDT EXAM: CT HEAD WO CONTRAST, CT FACIAL BONES WO CONTRAST, CT CERVICAL SPINE WO CONTRAST, CT THORACIC SPINE WO CONTRAST, CT LUMBAR SPINE WO CONTRAST, DATE/TIME OF EXAM: 11/01/2023 7:48 PM, LOCATION: ??[facility] HISTORY: Trauma ADDITIONAL CLINICAL INFORMATION: Ordering Provider Reason For Exam: ??Rule out fracture. EXAMINATION: CT scan of the head and facial bones/paranasal sinuses in addition to CT scan of the cervical, thoracic, and lumbar spine without intravenous contrast TECHNIQUE: CT of the head, facial bones/paranasal sinuses, and cervical spine was performed without intravenous contrast according to standard protocol. CT dose reduction technique was used, including Automated Exposure Control. Reformatted axial, sagittal, and coronal images of the thoracic and lumbar spine were obtained by the technologist from a concurrently performed chest, abdomen, and pelvis CT and sent to the workstation for review. COMPARISON: No prior similar studies are available for comparison. FINDINGS: HEAD: Streak/beam hardening artifact from patient's dental amalgam partially limits assessment of the posterior fossa. Within this limitation, the following assessment is made: BRAIN PARENCHYMA: No acute hemorrhage, large vascular territory infarct, or mass effect. Scattered white matter hypodensities, which are nonspecific but likely represents the sequela of chronic microangiopathic change. Mild generalized parenchymal volume loss, which is commensurate for age. VENTRICLES/EXTRA-AXIAL SPACES: No ventriculomegaly or extra-axial collection. Basal cisterns are patent. EXTRACRANIAL STRUCTURES: No acute calvarial abnormality. Incidentally noted hyperostosis frontalis interna. Small focal hematoma of the left parieto-occipital scalp measuring up to 8 mm in thickness (6/73, 7/20), which is associated with a small laceration. Mild calcific atherosclerosis of the carotid siphons. FACE/SINUSES: BONES: No acute maxillofacial fracture. Chronic healed fracture deformities of the nasal bones. Mild degenerative changes of the left temporomandibular joint. Osseous structures are demineralized. PARANASAL SINUSES: Clear. NASAL CAVITY: Clear. Midline nasal septum without a significant spur. MASTOID AIR CELLS/MIDDLE EAR CAVITIES: Clear. ORBITS: Bilateral lens replacement and scleral calcifications; otherwise, orbits are unremarkable. SOFT TISSUES: Unremarkable. OTHER: Large amount of cerumen within the left external auditory canal. CERVICAL SPINE: ALIGNMENT: Straightening of cervical spine lordotic curvature, which may be positional or related to muscle spasm. No traumatic malalignment. ATLANTOAXIAL JOINT: The dens is intact, the lateral masses of C1 are normally aligned relative to C2, and the atlantodental interval is normal. BONES: Vertebral body heights are maintained without evidence of acute fracture. Osseous structures are markedly demineralized. DISCS: Multilevel mild disc space narrowing. DEGENERATIVE CHANGES: Overall mild multilevel degenerative changes, characterized by varying degrees of posterior disc osteophyte complexes, facet arthropathy, and uncovertebral joint hypertrophy. ?? SPINAL CANAL/NEUROFORAMEN: Multilevel spinal canal stenoses that is notably moderate at the C5-C6 level secondary to posterior disc bulges. Multilevel neuroforaminal narrowing that is notably moderate at the bilateral C5-C6 level secondary to uncovertebral joint hypertrophy. SOFT TISSUES: No prevertebral soft tissue swelling. Surgically absent right thyroid lobe. Heterogeneous left thyroid lobe with an inferior pole exophytic nodule measuring approximately 2.7 x 2.3 cm in the axial plane (5/219). OTHER: Mild dependent subsegmental atelectasis of the lung apices. Yulm-am-mtevjxua calcific atherosclerosis of the carotid bulbs and moderate calcific atherosclerosis of the common carotid arteries. Multiple calcified mediastinal lymph nodes that is suggestive of prior healed granulomatous disease. THORACIC SPINE: ALIGNMENT: Mild kyphosis centered at the T5 level and ssyv-qa-vnxmqdjh levoconvex curvature of the upper thoracic spine without significant listhesis. No traumatic malalignment. BONES: Age-indeterminate compression fracture deformity of the T5 vertebral body superior endplate associated with a thin sclerotic line and with approximately 30% height loss anteriorly, which may represent an ljpqr-vc-vpkmgilk microtrabecular fracture. Age-indeterminate compression fracture deformity of the T6 vertebral body superior endplate associated with a thin sclerotic line and with approximately 30% height loss centrally, which may represent an votvz-ow-phchcfeg microtrabecular fracture. Chronic-appearing difyfge-ql-jayl height loss remaining thoracic vertebral bodies. No retropulsion at any level. Osseous structures are markedly demineralized. DISCS: Multilevel mild disc space narrowing. DEGENERATIVE CHANGES: Overall gkjj-dn-pkjmpfoo multilevel degenerative changes. ?? SPINAL CANAL/NEUROFORAMEN: No significant spinal canal stenosis. High-grade neuroforaminal narrowing at the right T2-T3 through T5-T6 levels and left T10-T11 level in addition to xbew-si-mzsjwifb neuroforaminal narrowing elsewhere. SOFT TISSUES: Visualized soft tissues are normal. OTHER: Dependent atelectasis of the lungs bilaterally. Mildly tortuous thoracic aorta with qgmgvvdr-et-ogkllp calcific atherosclerosis. Multiple calcified mediastinal lymph nodes that is suggestive of prior healed granulomatous disease. Moderate-sized hiatal hernia. These findings are better evaluated on concurrently reported chest, abdomen, and pelvis CT. LUMBAR SPINE: ALIGNMENT: Mild dextroconvex curvature of the lumbar spine with degenerative-related mild retrolisthesis of L4 on L5 and grade 1 anterolisthesis of L5 on S1 (measuring 7 mm). No traumatic malalignment. BONES: No evidence of an acute fracture. Chronic anterior compression fracture deformity of the L1 vertebral body resulting in approximately 50% height loss associated with approximately 4 mm retropulsion and evidence prior vertebroplasty/kyphoplasty change. Remaining vertebral body heights are maintained. 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 Osseous structures are markedly demineralized. DISCS: Multilevel advanced disc space narrowing and vacuum disc phenomena at all levels. DEGENERATIVE CHANGES: Overall trwqnnci-rq-czzezc multilevel degenerative change, characterized by varying degrees of posterior disc bulges, ligamentum flavum hypertrophy, and facet arthropathy. ?? SPINAL CANAL/NEUROFORAMEN: Multilevel spinal canal stenoses that is notably mild at the T12-L1 and L2-L3 levels, kukprmbj-ue-aogpvf at the L3-L4 and L4-L5 levels, and moderate at the L5-S1 level secondary to posterior disc bulges, ligamentum flavum hypertrophy, and bilateral facet arthropathy. Multilevel neuroforaminal narrowing that is predominantly moderate from the bilateral L2-L3 through L5-S1 levels. SOFT TISSUES: Symmetric atrophy of the posterior paraspinal musculature and mild edema of the posterior paraspinal fat. OTHER: Mild degenerative changes of the right greater than left sacroiliac joints. Left kidney with a simple cyst measuring up to 3.1 cm. Scattered colonic diverticula without evidence of diverticulitis. Extensive calcific atherosclerosis of the abdominal aorta and proximal branches. These findings are better evaluated on concurrently reported chest, abdomen, and pelvis CT. Procedure Note Bronson Elliott MD - 11/01/2023 EXAM: CT HEAD WO CONTRAST, CT FACIAL BONES WO CONTRAST, CT CERVICALSPINE WO CONTRAST, CT THORACIC SPINE WO CONTRAST, CT LUMBAR SPINE WO CONTRAST, DATE/TIME OF EXAM: 11/01/2023 7:48 PM, LOCATION: [facility] HISTORY: Trauma ADDITIONAL CLINICAL INFORMATION: Ordering Provider Reason For Exam: Rule out fracture. EXAMINATION: CT scan of the head and facial bones/paranasal sinuses in addition to CT scan of the cervical, thoracic, and lumbar spine without intravenous contrast TECHNIQUE: CT of the head, facial bones/paranasal sinuses, and cervical spine was performed without intravenous contrast according to standard protocol.CT dose reduction technique was used, including Automated Exposure Control. Reformatted axial, sagittal, and coronal images of the thoracic andlumbar spine were obtained by the technologist from a concurrently performed chest, abdomen, and pelvis CT and sent to the workstation for review. COMPARISON: No prior similar studies are available for comparison. FINDINGS: HEAD: Streak/beam hardening artifact from patient's dental amalgam partially limits assessment of the posterior fossa. Within this limitation, the following assessment is made: BRAIN PARENCHYMA: No acute hemorrhage, large vascular territory infarct,or mass effect. Scattered white matter hypodensities, which are nonspecific but likely represents the sequela of chronic microangiopathic change.Mild generalized parenchymal volume loss, which is commensurate for age. VENTRICLES/EXTRA-AXIAL SPACES: No ventriculomegaly or extra-axial collection. Basal cisterns are patent. EXTRACRANIAL STRUCTURES: No acute calvarial abnormality. Incidentallynoted hyperostosis frontalis interna. Small focal hematoma of the left parieto-occipital scalp measuring up to 8 mm in thickness (6/73, 7/20), which is associated with a small laceration. Mild calcificatherosclerosis of the carotid siphons. FACE/SINUSES: BONES: No acute maxillofacial fracture. Chronic healed fracturedeformities of the nasal bones. Mild degenerative changes of the lefttemporomandibular joint. Osseous structures are demineralized. PARANASAL SINUSES: Clear. NASAL CAVITY: Clear. Midline nasal septum without a significant spur. MASTOID AIR CELLS/MIDDLE EAR CAVITIES: Clear. ORBITS: Bilateral lens replacement and scleral calcifications;otherwise, orbits are unremarkable. SOFT TISSUES: Unremarkable. OTHER: Large amount of cerumen within the left external auditory canal. CERVICAL SPINE: ALIGNMENT: Straightening of cervical spine lordotic curvature, which maybe positional or related to muscle spasm. No traumatic malalignment. ATLANTOAXIAL JOINT: The dens is intact, the lateral masses of C1 are normally aligned relative to C2, and the atlantodental interval is normal. BONES: Vertebral body heights are maintained without evidence of acute fracture. Osseous structures are markedly demineralized. DISCS: Multilevel mild disc space narrowing. DEGENERATIVE CHANGES: Overall mild multilevel degenerative changes, characterized by varying degrees of posterior disc osteophyte complexes, facet arthropathy, and uncovertebral joint hypertrophy. SPINAL CANAL/NEUROFORAMEN: Multilevel spinal canal stenoses that isnotably moderate at the C5-C6 level secondary to posterior disc bulges.Multilevel neuroforaminal narrowing that is notably moderate at the bilateral C5-C6 level secondary to uncovertebral joint hypertrophy. SOFT TISSUES: No prevertebral soft tissue swelling. Surgically absentright thyroid lobe. Heterogeneous left thyroid lobe with an inferior pole exophytic nodule measuring approximately 2.7 x 2.3 cm in the axial plane (5/219). OTHER: Mild dependent subsegmental atelectasis of the lung apices. Jhdx-fd-iuvkugul calcific atherosclerosis of the carotid bulbs andmoderate calcific atherosclerosis of the common carotid arteries. Multiplecalcified mediastinal lymph nodes that is suggestive of prior healed granulomatous disease. THORACIC SPINE: ALIGNMENT: Mild kyphosis centered at the T5 level and mwyr-aw-azzfruux levoconvex curvature of the upper thoracic spine without significant listhesis. No traumatic malalignment. BONES: Age-indeterminate compression fracture deformity of the M8cjucgavnr body superior endplate associated with a thin sclerotic line and with approximately 30% height loss anteriorly, which may represent an puqnj-bq-qfzawbhw microtrabecular fracture. Age-indeterminatecompression fracture deformity of the T6 vertebral body superior endplate associated with a thin sclerotic line and with approximately 30% height loss centrally, which may represent an fjain-ib-wkhselfi microtrabecular fracture. Chronic-appearing wyeelqz-xv-tcjs height loss remainingthoracic vertebral bodies. No retropulsion at any level. Osseous structures are markedly demineralized. DISCS: Multilevel mild disc space narrowing. DEGENERATIVE CHANGES: Overall ovgw-mz-rsmqhaue multilevel degenerative changes. SPINAL CANAL/NEUROFORAMEN: No significant spinal canal stenosis.High-grade neuroforaminal narrowing at the right T2-T3 through T5-T6 levels andleft T10-T11 level in addition to fivn-jn-fjnrbdje neuroforaminal narrowing elsewhere. SOFT TISSUES: Visualized soft tissues are normal. OTHER: Dependent atelectasis of the lungs bilaterally. Mildly tortuous thoracic aorta with kejmxsmt-lu-eonfax calcific atherosclerosis.Multiple calcified mediastinal lymph nodes that is suggestive of prior healed granulomatous disease. Moderate-sized hiatal hernia. These findings are better evaluated on concurrently reported chest, abdomen, and pelvis CT. LUMBAR SPINE: ALIGNMENT: Mild dextroconvex curvature of the lumbar spine with degenerative-related mild retrolisthesis of L4 on L5 and grade 1 anterolisthesis of L5 on S1 (measuring 7 mm). No traumatic malalignment. BONES: No evidence of an acute fracture. Chronic anterior compression fracture deformity of the L1 vertebral body resulting in % height loss associated with approximately 4 mm retropulsion and evidence prior vertebroplasty/kyphoplasty change. Remaining vertebral bodyheights are maintained. 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 Osseous structures are markedly demineralized. DISCS: Multilevel advanced disc space narrowing and vacuum discphenomena at all levels. DEGENERATIVE CHANGES: Overall gjkssinn-uq-hsmmeg multilevel degenerative change, characterized by varying degrees of posterior disc bulges, ligamentum flavum hypertrophy, and facet arthropathy. SPINAL CANAL/NEUROFORAMEN: Multilevel spinal canal stenoses that isnotably mild at the T12-L1 and L2-L3 levels, emvijacw-jg-sjbzlx at the L3-L4 and L4-L5 levels, and moderate at the L5-S1 level secondary to posteriordisc bulges, ligamentum flavum hypertrophy, and bilateral facet arthropathy. Multilevel neuroforaminal narrowing that is predominantly moderate fromthe bilateral L2-L3 through L5-S1 levels. SOFT TISSUES: Symmetric atrophy of the posterior paraspinal musculatureand mild edema of the posterior paraspinal fat. OTHER: Mild degenerative changes of the right greater than leftsacroiliac joints. Left kidney with a simple cyst measuring up to 3.1 cm. Scattered colonic diverticula without evidence of diverticulitis. Extensivecalcific atherosclerosis of the abdominal aorta and proximal branches. These findings are better evaluated on concurrently reported chest, abdomen,and pelvis CT. IMPRESSION: 1.No acute intracranial abnormality. 2.No acute maxillofacial fracture. 3.No acute fracture or traumatic malalignment of the cervical spine. 4.Age-indeterminate compression fracture deformities of the T5 and T6 vertebral bodies resulting in 30% height loss and associated with a thin sclerotic line through the superior endplates at these levels, which may represent clmpe-ec-raihsdri microtrabecular fractures. No evidence of retropulsion. Recommend correlation with point tenderness at theselevels to assess for acuity. 5.No acute fracture or traumatic malalignment of the lumbar spine. 6.Heterogeneous left thyroid lobe with an inferior pole exophytic nodule measuring approximately 2.7 x 2.3 cm in the axial plane. Recommend follow-up nonemergent outpatient thyroid ultrasound if not recently performed. 7.Please refer to concurrently reported chest, abdomen, and pelvis CTfor description of additional nonspine-related abnormalities. > Interpreting Provider: Bronson Elliott MD, PhD on 11/01/2023 10:38 PM Mckay Church MD CT ORDERABLES * CT FACIAL BONES WO CONTRAST - Facial trauma, fx suspected, blunt (11/01/2023 7:46 PM CDT) Anatomical Region Laterality Modality Head Computed Tomogra phy 11/01/2023 9:56 PM CDT Impressions 11/01/2023 10:38 PM CDT IMPRESSION: 1.No acute intracranial abnormality. 2.No acute maxillofacial fracture. 3.No acute fracture or traumatic malalignment of the cervical spine. 4.Age-indeterminate compression fracture deformities of the T5 and T6 vertebral bodies resulting in 30% height loss and associated with a thin sclerotic line through the superior endplates at these levels, which may represent idgzi-wy-aqerfice microtrabecular fractures. No evidence of retropulsion. Recommend correlation with point tenderness at these levels to assess for acuity. 5.No acute fracture or traumatic malalignment of the lumbar spine. 6.Heterogeneous left thyroid lobe with an inferior pole exophytic nodule measuring approximately 2.7 x 2.3 cm in the axial plane. Recommend follow-up nonemergent outpatient thyroid ultrasound if not recently performed. 7.Please refer to concurrently reported chest, abdomen, and pelvis CT for description of additional nonspine-related abnormalities. > Interpreting Provider: Bronson Elliott MD, PhD on 11/01/2023 10:38 PM Narrative 11/01/2023 10:38 PM CDT EXAM: CT HEAD WO CONTRAST, CT FACIAL BONES WO CONTRAST, CT CERVICAL SPINE WO CONTRAST, CT THORACIC SPINE WO CONTRAST, CT LUMBAR SPINE WO CONTRAST, DATE/TIME OF EXAM: 11/01/2023 7:48 PM, LOCATION: [facility] HISTORY: Trauma ADDITIONAL CLINICAL INFORMATION: Ordering Provider Reason For Exam: ??Rule out fracture. EXAMINATION: CT scan of the head and facial bones/paranasal sinuses in addition to CT scan of the cervical, thoracic, and lumbar spine without intravenous contrast TECHNIQUE: CT of the head, facial bones/paranasal sinuses, and cervical spine was performed without intravenous contrast according to standard protocol. CT dose reduction technique was used, including Automated Exposure Control. Reformatted axial, sagittal, and coronal images of the thoracic and lumbar spine were obtained by the technologist from a concurrently performed chest, abdomen, and pelvis CT and sent to the workstation for review. COMPARISON: No prior similar studies are available for comparison. FINDINGS: HEAD: Streak/beam hardening artifact from patient's dental amalgam partially limits assessment of the posterior fossa. Within this limitation, the following assessment is made: BRAIN PARENCHYMA: No acute hemorrhage, large vascular territory infarct, or mass effect. Scattered white matter hypodensities, which are nonspecific but likely represents the sequela of chronic microangiopathic change. Mild generalized parenchymal volume loss, which is commensurate for age. VENTRICLES/EXTRA-AXIAL SPACES: No ventriculomegaly or extra-axial collection. Basal cisterns are patent. EXTRACRANIAL STRUCTURES: No acute calvarial abnormality. Incidentally noted hyperostosis frontalis interna. Small focal hematoma of the left parieto-occipital scalp measuring up to 8 mm in thickness (6/73, 7/), which is associated with a small laceration. Mild calcific atherosclerosis of the carotid siphons. FACE/SINUSES: BONES: No acute maxillofacial fracture. Chronic healed fracture deformities of the nasal bones. Mild degenerative changes of the left temporomandibular joint. Osseous structures are demineralized. PARANASAL SINUSES: Clear. NASAL CAVITY: Clear. Midline nasal septum without a significant spur. MASTOID AIR CELLS/MIDDLE EAR CAVITIES: Clear. ORBITS: Bilateral lens replacement and scleral calcifications; otherwise, orbits are unremarkable. SOFT TISSUES: Unremarkable. OTHER: Large amount of cerumen within the left external auditory canal. CERVICAL SPINE: ALIGNMENT: Straightening of cervical spine lordotic curvature, which may be positional or related to muscle spasm. No traumatic malalignment. ATLANTOAXIAL JOINT: The dens is intact, the lateral masses of C1 are normally aligned relative to C2, and the atlantodental interval is normal. BONES: Vertebral body heights are maintained without evidence of acute fracture. Osseous structures are markedly demineralized. DISCS: Multilevel mild disc space narrowing. DEGENERATIVE CHANGES: Overall mild multilevel degenerative changes, characterized by varying degrees of posterior disc osteophyte complexes, facet arthropathy, and uncovertebral joint hypertrophy. ?? SPINAL CANAL/NEUROFORAMEN: Multilevel spinal canal stenoses that is notably moderate at the C5-C6 level secondary to posterior disc bulges. Multilevel neuroforaminal narrowing that is notably moderate at the bilateral C5-C6 level secondary to uncovertebral joint hypertrophy. SOFT TISSUES: No prevertebral soft tissue swelling. Surgically absent right thyroid lobe. Heterogeneous left thyroid lobe with an inferior pole exophytic nodule measuring approximately 2.7 x 2.3 cm in the axial plane (). OTHER: Mild dependent subsegmental atelectasis of the lung apices. Cqgn-gz-kuiyuiuw calcific atherosclerosis of the carotid bulbs and moderate calcific atherosclerosis of the common carotid arteries. Multiple calcified mediastinal lymph nodes that is suggestive of prior healed granulomatous disease. THORACIC SPINE: ALIGNMENT: Mild kyphosis centered at the T5 level and gpkt-tn-dcovuubg levoconvex curvature of the upper thoracic spine without significant listhesis. No traumatic malalignment. BONES: Age-indeterminate compression fracture deformity of the T5 vertebral body superior endplate associated with a thin sclerotic line and with approximately 30% height loss anteriorly, which may represent an fmbhd-rd-llehjrpd microtrabecular fracture. Age-indeterminate compression fracture deformity of the T6 vertebral body superior endplate associated with a thin sclerotic line and with approximately 30% height loss centrally, which may represent an rkshz-sh-hahbweuv microtrabecular fracture. Chronic-appearing gyjnvkd-po-npks height loss remaining thoracic vertebral bodies. No retropulsion at any level. Osseous structures are markedly demineralized. DISCS: Multilevel mild disc space narrowing. DEGENERATIVE CHANGES: Overall jufr-wc-tjtchdqu multilevel degenerative changes. ?? SPINAL CANAL/NEUROFORAMEN: No significant spinal canal stenosis. High-grade neuroforaminal narrowing at the right T2-T3 through T5-T6 levels and left T10-T11 level in addition to hfvs-zc-duzkdrpz neuroforaminal narrowing elsewhere. SOFT TISSUES: Visualized soft tissues are normal. OTHER: Dependent atelectasis of the lungs bilaterally. Mildly tortuous thoracic aorta with popnlpho-ad-wtxcsn calcific atherosclerosis. Multiple calcified mediastinal lymph nodes that is suggestive of prior healed granulomatous disease. Moderate-sized hiatal hernia. These findings are better evaluated on concurrently reported chest, abdomen, and pelvis CT. LUMBAR SPINE: ALIGNMENT: Mild dextroconvex curvature of the lumbar spine with degenerative-related mild retrolisthesis of L4 on L5 and grade 1 anterolisthesis of L5 on S1 (measuring 7 mm). No traumatic malalignment. BONES: No evidence of an acute fracture. Chronic anterior compression fracture deformity of the L1 vertebral body resulting in approximately 50% height loss associated with approximately 4 mm retropulsion and evidence prior vertebroplasty/kyphoplasty change. Remaining vertebral body heights are maintained. 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 Osseous structures are markedly demineralized. DISCS: Multilevel advanced disc space narrowing and vacuum disc phenomena at all levels. DEGENERATIVE CHANGES: Overall ebyivkpb-pe-expslb multilevel degenerative change, characterized by varying degrees of posterior disc bulges, ligamentum flavum hypertrophy, and facet arthropathy. ?? SPINAL CANAL/NEUROFORAMEN: Multilevel spinal canal stenoses that is notably mild at the T12-L1 and L2-L3 levels, kjkvtnaf-ao-zpyaue at the L3-L4 and L4-L5 levels, and moderate at the L5-S1 level secondary to posterior disc bulges, ligamentum flavum hypertrophy, and bilateral facet arthropathy. Multilevel neuroforaminal narrowing that is predominantly moderate from the bilateral L2-L3 through L5-S1 levels. SOFT TISSUES: Symmetric atrophy of the posterior paraspinal musculature and mild edema of the posterior paraspinal fat. OTHER: Mild degenerative changes of the right greater than left sacroiliac joints. Left kidney with a simple cyst measuring up to 3.1 cm. Scattered colonic diverticula without evidence of diverticulitis. Extensive calcific atherosclerosis of the abdominal aorta and proximal branches. These findings are better evaluated on concurrently reported chest, abdomen, and pelvis CT. Procedure Note Bronson Elliott MD - 11/01/2023 EXAM: CT HEAD WO CONTRAST, CT FACIAL BONES WO CONTRAST, CT CERVICALSPINE WO CONTRAST, CT THORACIC SPINE WO CONTRAST, CT LUMBAR SPINE WO CONTRAST, DATE/TIME OF EXAM: 11/01/2023 7:48 PM, LOCATION: [facility] HISTORY: Trauma ADDITIONAL CLINICAL INFORMATION: Ordering Provider Reason For Exam: Rule out fracture. EXAMINATION: CT scan of the head and facial bones/paranasal sinuses in addition to CT scan of the cervical, thoracic, and lumbar spine without intravenous contrast TECHNIQUE: CT of the head, facial bones/paranasal sinuses, and cervical spine was performed without intravenous contrast according to standard protocol.CT dose reduction technique was used, including Automated Exposure Control. Reformatted axial, sagittal, and coronal images of the thoracic andlumbar spine were obtained by the technologist from a concurrently performed chest, abdomen, and pelvis CT and sent to the workstation for review. COMPARISON: No prior similar studies are available for comparison. FINDINGS: HEAD: Streak/beam hardening artifact from patient's dental amalgam partially limits assessment of the posterior fossa. Within this limitation, the following assessment is made: BRAIN PARENCHYMA: No acute hemorrhage, large vascular territory infarct,or mass effect. Scattered white matter hypodensities, which are nonspecific but likely represents the sequela of chronic microangiopathic change.Mild generalized parenchymal volume loss, which is commensurate for age. VENTRICLES/EXTRA-AXIAL SPACES: No ventriculomegaly or extra-axial collection. Basal cisterns are patent. EXTRACRANIAL STRUCTURES: No acute calvarial abnormality. Incidentallynoted hyperostosis frontalis interna. Small focal hematoma of the left parieto-occipital scalp measuring up to 8 mm in thickness (, 01/09), which is associated with a small laceration. Mild calcificatherosclerosis of the carotid siphons. FACE/SINUSES: BONES: No acute maxillofacial fracture. Chronic healed fracturedeformities of the nasal bones. Mild degenerative changes of the lefttemporomandibular joint. Osseous structures are demineralized. PARANASAL SINUSES: Clear. NASAL CAVITY: Clear. Midline nasal septum without a significant spur. MASTOID AIR CELLS/MIDDLE EAR CAVITIES: Clear. ORBITS: Bilateral lens replacement and scleral calcifications;otherwise, orbits are unremarkable. SOFT TISSUES: Unremarkable. OTHER: Large amount of cerumen within the left external auditory canal. CERVICAL SPINE: ALIGNMENT: Straightening of cervical spine lordotic curvature, which maybe positional or related to muscle spasm. No traumatic malalignment. ATLANTOAXIAL JOINT: The dens is intact, the lateral masses of C1 are normally aligned relative to C2, and the atlantodental interval is normal. BONES: Vertebral body heights are maintained without evidence of acute fracture. Osseous structures are markedly demineralized. DISCS: Multilevel mild disc space narrowing. DEGENERATIVE CHANGES: Overall mild multilevel degenerative changes, characterized by varying degrees of posterior disc osteophyte complexes, facet arthropathy, and uncovertebral joint hypertrophy. SPINAL CANAL/NEUROFORAMEN: Multilevel spinal canal stenoses that isnotably moderate at the C5-C6 level secondary to posterior disc bulges.Multilevel neuroforaminal narrowing that is notably moderate at the bilateral C5-C6 level secondary to uncovertebral joint hypertrophy. SOFT TISSUES: No prevertebral soft tissue swelling. Surgically absentright thyroid lobe. Heterogeneous left thyroid lobe with an inferior pole exophytic nodule measuring approximately 2.7 x 2.3 cm in the axial plane (/). OTHER: Mild dependent subsegmental atelectasis of the lung apices. Vlgp-qw-ljenzhtj calcific atherosclerosis of the carotid bulbs andmoderate calcific atherosclerosis of the common carotid arteries. Multiplecalcified mediastinal lymph nodes that is suggestive of prior healed granulomatous disease. THORACIC SPINE: ALIGNMENT: Mild kyphosis centered at the T5 level and cqax-sa-ikjcolzi levoconvex curvature of the upper thoracic spine without significant listhesis. No traumatic malalignment. BONES: Age-indeterminate compression fracture deformity of the R5ofdlqxfsc body superior endplate associated with a thin sclerotic line and with approximately 30% height loss anteriorly, which may represent an wmgwz-vo-kqinmrga microtrabecular fracture. Age-indeterminatecompression fracture deformity of the T6 vertebral body superior endplate associated with a thin sclerotic line and with approximately 30% height loss centrally, which may represent an vvevy-sa-pibenivd microtrabecular fracture. Chronic-appearing sbkvfgt-md-gtsr height loss remainingthoracic vertebral bodies. No retropulsion at any level. Osseous structures are markedly demineralized. DISCS: Multilevel mild disc space narrowing. DEGENERATIVE CHANGES: Overall kvey-jr-oltbvijk multilevel degenerative changes. SPINAL CANAL/NEUROFORAMEN: No significant spinal canal stenosis.High-grade neuroforaminal narrowing at the right T2-T3 through T5-T6 levels andleft T10-T11 level in addition to xdic-ow-xfdcmlwe neuroforaminal narrowing elsewhere. SOFT TISSUES: Visualized soft tissues are normal. OTHER: Dependent atelectasis of the lungs bilaterally. Mildly tortuous thoracic aorta with byftlgwo-jr-uajhgs calcific atherosclerosis.Multiple calcified mediastinal lymph nodes that is suggestive of prior healed granulomatous disease. Moderate-sized hiatal hernia. These findings are better evaluated on concurrently reported chest, abdomen, and pelvis CT. LUMBAR SPINE: ALIGNMENT: Mild dextroconvex curvature of the lumbar spine with degenerative-related mild retrolisthesis of L4 on L5 and grade 1 anterolisthesis of L5 on S1 (measuring 7 mm). No traumatic malalignment. BONES: No evidence of an acute fracture. Chronic anterior compression fracture deformity of the L1 vertebral body resulting in zviosdhopkcrz14% height loss associated with approximately 4 mm retropulsion and evidence prior vertebroplasty/kyphoplasty change. Remaining vertebral bodyheights are maintained. 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 Osseous structures are markedly demineralized. DISCS: Multilevel advanced disc space narrowing and vacuum discphenomena at all levels. DEGENERATIVE CHANGES: Overall sgkuxaei-id-aynhuy multilevel degenerative change, characterized by varying degrees of posterior disc bulges, ligamentum flavum hypertrophy, and facet arthropathy. SPINAL CANAL/NEUROFORAMEN: Multilevel spinal canal stenoses that isnotably mild at the T12-L1 and L2-L3 levels, raywibjf-bt-tvzvwx at the L3-L4 and L4-L5 levels, and moderate at the L5-S1 level secondary to posteriordisc bulges, ligamentum flavum hypertrophy, and bilateral facet arthropathy. Multilevel neuroforaminal narrowing that is predominantly moderate fromthe bilateral L2-L3 through L5-S1 levels. SOFT TISSUES: Symmetric atrophy of the posterior paraspinal musculatureand mild edema of the posterior paraspinal fat. OTHER: Mild degenerative changes of the right greater than leftsacroiliac joints. Left kidney with a simple cyst measuring up to 3.1 cm. Scattered colonic diverticula without evidence of diverticulitis. Extensivecalcific atherosclerosis of the abdominal aorta and proximal branches. These findings are better evaluated on concurrently reported chest, abdomen,and pelvis CT. IMPRESSION: 1.No acute intracranial abnormality. 2.No acute maxillofacial fracture. 3.No acute fracture or traumatic malalignment of the cervical spine. 4.Age-indeterminate compression fracture deformities of the T5 and T6 vertebral bodies resulting in 30% height loss and associated with a thin sclerotic line through the superior endplates at these levels, which may represent fpgxp-mg-wrpekavz microtrabecular fractures. No evidence of retropulsion. Recommend correlation with point tenderness at theselevels to assess for acuity. 5.No acute fracture or traumatic malalignment of the lumbar spine. 6.Heterogeneous left thyroid lobe with an inferior pole exophytic nodule measuring approximately 2.7 x 2.3 cm in the axial plane. Recommend follow-up nonemergent outpatient thyroid ultrasound if not recently performed. 7.Please refer to concurrently reported chest, abdomen, and pelvis CTfor description of additional nonspine-related abnormalities. > Interpreting Provider: Bronson Elliott MD, PhD on 11/01/2023 10:38 PM Kathryn Quach MD CT ORDERABLES * CT HEAD WO CONTRAST - Head Trauma, CSF leak, mental status changes (11/01/2023 7:46 PM CDT) Anatomical Region Laterality Modality Head Computed Tomogra phy 11/01/2023 9:56 PM CDT Impressions 11/01/2023 10:38 PM CDT IMPRESSION: 1.No acute intracranial abnormality. 2.No acute maxillofacial fracture. 3.No acute fracture or traumatic malalignment of the cervical spine. 4.Age-indeterminate compression fracture deformities of the T5 and T6 vertebral bodies resulting in 30% height loss and associated with a thin sclerotic line through the superior endplates at these levels, which may represent qbfmb-kj-rlaoaebi microtrabecular fractures. No evidence of retropulsion. Recommend correlation with point tenderness at these levels to assess for acuity. 5.No acute fracture or traumatic malalignment of the lumbar spine. 6.Heterogeneous left thyroid lobe with an inferior pole exophytic nodule measuring approximately 2.7 x 2.3 cm in the axial plane. Recommend follow-up nonemergent outpatient thyroid ultrasound if not recently performed. 7.Please refer to concurrently reported chest, abdomen, and pelvis CT for description of additional nonspine-related abnormalities. > Interpreting Provider: Bronson Elliott MD, PhD on 11/01/2023 10:38 PM Narrative 11/01/2023 10:38 PM CDT EXAM: CT HEAD WO CONTRAST, CT FACIAL BONES WO CONTRAST, CT CERVICAL SPINE WO CONTRAST, CT THORACIC SPINE WO CONTRAST, CT LUMBAR SPINE WO CONTRAST, DATE/TIME OF EXAM: 11/01/2023 7:48 PM, LOCATION: ??[facility] HISTORY: Trauma ADDITIONAL CLINICAL INFORMATION: Ordering Provider Reason For Exam: ??Rule out fracture. EXAMINATION: CT scan of the head and facial bones/paranasal sinuses in addition to CT scan of the cervical, thoracic, and lumbar spine without intravenous contrast TECHNIQUE: CT of the head, facial bones/paranasal sinuses, and cervical spine was performed without intravenous contrast according to standard protocol. CT dose reduction technique was used, including Automated Exposure Control. Reformatted axial, sagittal, and coronal images of the thoracic and lumbar spine were obtained by the technologist from a concurrently performed chest, abdomen, and pelvis CT and sent to the workstation for review. COMPARISON: No prior similar studies are available for comparison. FINDINGS: HEAD: Streak/beam hardening artifact from patient's dental amalgam partially limits assessment of the posterior fossa. Within this limitation, the following assessment is made: BRAIN PARENCHYMA: No acute hemorrhage, large vascular territory infarct, or mass effect. Scattered white matter hypodensities, which are nonspecific but likely represents the sequela of chronic microangiopathic change. Mild generalized parenchymal volume loss, which is commensurate for age. VENTRICLES/EXTRA-AXIAL SPACES: No ventriculomegaly or extra-axial collection. Basal cisterns are patent. EXTRACRANIAL STRUCTURES: No acute calvarial abnormality. Incidentally noted hyperostosis frontalis interna. Small focal hematoma of the left parieto-occipital scalp measuring up to 8 mm in thickness (6/73, 01/09), which is associated with a small laceration. Mild calcific atherosclerosis of the carotid siphons. FACE/SINUSES: BONES: No acute maxillofacial fracture. Chronic healed fracture deformities of the nasal bones. Mild degenerative changes of the left temporomandibular joint. Osseous structures are demineralized. PARANASAL SINUSES: Clear. NASAL CAVITY: Clear. Midline nasal septum without a significant spur. MASTOID AIR CELLS/MIDDLE EAR CAVITIES: Clear. ORBITS: Bilateral lens replacement and scleral calcifications; otherwise, orbits are unremarkable. SOFT TISSUES: Unremarkable. OTHER: Large amount of cerumen within the left external auditory canal. CERVICAL SPINE: ALIGNMENT: Straightening of cervical spine lordotic curvature, which may be positional or related to muscle spasm. No traumatic malalignment. ATLANTOAXIAL JOINT: The dens is intact, the lateral masses of C1 are normally aligned relative to C2, and the atlantodental interval is normal. BONES: Vertebral body heights are maintained without evidence of acute fracture. Osseous structures are markedly demineralized. DISCS: Multilevel mild disc space narrowing. DEGENERATIVE CHANGES: Overall mild multilevel degenerative changes, characterized by varying degrees of posterior disc osteophyte complexes, facet arthropathy, and uncovertebral joint hypertrophy. ?? SPINAL CANAL/NEUROFORAMEN: Multilevel spinal canal stenoses that is notably moderate at the C5-C6 level secondary to posterior disc bulges. Multilevel neuroforaminal narrowing that is notably moderate at the bilateral C5-C6 level secondary to uncovertebral joint hypertrophy. SOFT TISSUES: No prevertebral soft tissue swelling. Surgically absent right thyroid lobe. Heterogeneous left thyroid lobe with an inferior pole exophytic nodule measuring approximately 2.7 x 2.3 cm in the axial plane (5/219). OTHER: Mild dependent subsegmental atelectasis of the lung apices. Vnrd-yw-uvmwvrwt calcific atherosclerosis of the carotid bulbs and moderate calcific atherosclerosis of the common carotid arteries. Multiple calcified mediastinal lymph nodes that is suggestive of prior healed granulomatous disease. THORACIC SPINE: ALIGNMENT: Mild kyphosis centered at the T5 level and tkhw-od-szjwudbs levoconvex curvature of the upper thoracic spine without significant listhesis. No traumatic malalignment. BONES: Age-indeterminate compression fracture deformity of the T5 vertebral body superior endplate associated with a thin sclerotic line and with approximately 30% height loss anteriorly, which may represent an wivlo-jv-ugdueguz microtrabecular fracture. Age-indeterminate compression fracture deformity of the T6 vertebral body superior endplate associated with a thin sclerotic line and with approximately 30% height loss centrally, which may represent an hmfge-fv-lealamem microtrabecular fracture. Chronic-appearing wtngdbq-io-kayk height loss remaining thoracic vertebral bodies. No retropulsion at any level. Osseous structures are markedly demineralized. DISCS: Multilevel mild disc space narrowing. DEGENERATIVE CHANGES: Overall bapj-px-nbmytpcw multilevel degenerative changes. ?? SPINAL CANAL/NEUROFORAMEN: No significant spinal canal stenosis. High-grade neuroforaminal narrowing at the right T2-T3 through T5-T6 levels and left T10-T11 level in addition to jetg-zz-squnchqq neuroforaminal narrowing elsewhere. SOFT TISSUES: Visualized soft tissues are normal. OTHER: Dependent atelectasis of the lungs bilaterally. Mildly tortuous thoracic aorta with kbwunsin-ln-nkvvgo calcific atherosclerosis. Multiple calcified mediastinal lymph nodes that is suggestive of prior healed granulomatous disease. Moderate-sized hiatal hernia. These findings are better evaluated on concurrently reported chest, abdomen, and pelvis CT. LUMBAR SPINE: ALIGNMENT: Mild dextroconvex curvature of the lumbar spine with degenerative-related mild retrolisthesis of L4 on L5 and grade 1 anterolisthesis of L5 on S1 (measuring 7 mm). No traumatic malalignment. BONES: No evidence of an acute fracture. Chronic anterior compression fracture deformity of the L1 vertebral body resulting in approximately 50% height loss associated with approximately 4 mm retropulsion and evidence prior vertebroplasty/kyphoplasty change. Remaining vertebral body heights are maintained. 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 Osseous structures are markedly demineralized. DISCS: Multilevel advanced disc space narrowing and vacuum disc phenomena at all levels. DEGENERATIVE CHANGES: Overall jjrkhyzd-cj-qwzfnx multilevel degenerative change, characterized by varying degrees of posterior disc bulges, ligamentum flavum hypertrophy, and facet arthropathy. ?? SPINAL CANAL/NEUROFORAMEN: Multilevel spinal canal stenoses that is notably mild at the T12-L1 and L2-L3 levels, xtwriczt-wq-lnhgcs at the L3-L4 and L4-L5 levels, and moderate at the L5-S1 level secondary to posterior disc bulges, ligamentum flavum hypertrophy, and bilateral facet arthropathy. Multilevel neuroforaminal narrowing that is predominantly moderate from the bilateral L2-L3 through L5-S1 levels. SOFT TISSUES: Symmetric atrophy of the posterior paraspinal musculature and mild edema of the posterior paraspinal fat. OTHER: Mild degenerative changes of the right greater than left sacroiliac joints. Left kidney with a simple cyst measuring up to 3.1 cm. Scattered colonic diverticula without evidence of diverticulitis. Extensive calcific atherosclerosis of the abdominal aorta and proximal branches. These findings are better evaluated on concurrently reported chest, abdomen, and pelvis CT. Procedure Note Bronson Elliott MD - 11/01/2023 EXAM: CT HEAD WO CONTRAST, CT FACIAL BONES WO CONTRAST, CT CERVICALSPINE WO CONTRAST, CT THORACIC SPINE WO CONTRAST, CT LUMBAR SPINE WO CONTRAST, DATE/TIME OF EXAM: 11/01/2023 7:48 PM, LOCATION: [facility] HISTORY: Trauma ADDITIONAL CLINICAL INFORMATION: Ordering Provider Reason For Exam: Rule out fracture. EXAMINATION: CT scan of the head and facial bones/paranasal sinuses in addition to CT scan of the cervical, thoracic, and lumbar spine without intravenous contrast TECHNIQUE: CT of the head, facial bones/paranasal sinuses, and cervical spine was performed without intravenous contrast according to standard protocol.CT dose reduction technique was used, including Automated Exposure Control. Reformatted axial, sagittal, and coronal images of the thoracic andlumbar spine were obtained by the technologist from a concurrently performed chest, abdomen, and pelvis CT and sent to the workstation for review. COMPARISON: No prior similar studies are available for comparison. FINDINGS: HEAD: Streak/beam hardening artifact from patient's dental amalgam partially limits assessment of the posterior fossa. Within this limitation, the following assessment is made: BRAIN PARENCHYMA: No acute hemorrhage, large vascular territory infarct,or mass effect. Scattered white matter hypodensities, which are nonspecific but likely represents the sequela of chronic microangiopathic change.Mild generalized parenchymal volume loss, which is commensurate for age. VENTRICLES/EXTRA-AXIAL SPACES: No ventriculomegaly or extra-axial collection. Basal cisterns are patent. EXTRACRANIAL STRUCTURES: No acute calvarial abnormality. Incidentallynoted hyperostosis frontalis interna. Small focal hematoma of the left parieto-occipital scalp measuring up to 8 mm in thickness (6/73, 7/), which is associated with a small laceration. Mild calcificatherosclerosis of the carotid siphons. FACE/SINUSES: BONES: No acute maxillofacial fracture. Chronic healed fracturedeformities of the nasal bones. Mild degenerative changes of the lefttemporomandibular joint. Osseous structures are demineralized. PARANASAL SINUSES: Clear. NASAL CAVITY: Clear. Midline nasal septum without a significant spur. MASTOID AIR CELLS/MIDDLE EAR CAVITIES: Clear. ORBITS: Bilateral lens replacement and scleral calcifications;otherwise, orbits are unremarkable. SOFT TISSUES: Unremarkable. OTHER: Large amount of cerumen within the left external auditory canal. CERVICAL SPINE: ALIGNMENT: Straightening of cervical spine lordotic curvature, which maybe positional or related to muscle spasm. No traumatic malalignment. ATLANTOAXIAL JOINT: The dens is intact, the lateral masses of C1 are normally aligned relative to C2, and the atlantodental interval is normal. BONES: Vertebral body heights are maintained without evidence of acute fracture. Osseous structures are markedly demineralized. DISCS: Multilevel mild disc space narrowing. DEGENERATIVE CHANGES: Overall mild multilevel degenerative changes, characterized by varying degrees of posterior disc osteophyte complexes, facet arthropathy, and uncovertebral joint hypertrophy. SPINAL CANAL/NEUROFORAMEN: Multilevel spinal canal stenoses that isnotably moderate at the C5-C6 level secondary to posterior disc bulges.Multilevel neuroforaminal narrowing that is notably moderate at the bilateral C5-C6 level secondary to uncovertebral joint hypertrophy. SOFT TISSUES: No prevertebral soft tissue swelling. Surgically absentright thyroid lobe. Heterogeneous left thyroid lobe with an inferior pole exophytic nodule measuring approximately 2.7 x 2.3 cm in the axial plane (5/219). OTHER: Mild dependent subsegmental atelectasis of the lung apices. Ztfp-yc-wsjaemyi calcific atherosclerosis of the carotid bulbs andmoderate calcific atherosclerosis of the common carotid arteries. Multiplecalcified mediastinal lymph nodes that is suggestive of prior healed granulomatous disease. THORACIC SPINE: ALIGNMENT: Mild kyphosis centered at the T5 level and jfdo-te-ioogjtqy levoconvex curvature of the upper thoracic spine without significant listhesis. No traumatic malalignment. BONES: Age-indeterminate compression fracture deformity of the K5pyhsbecab body superior endplate associated with a thin sclerotic line and with approximately 30% height loss anteriorly, which may represent an omhli-je-eitrpswh microtrabecular fracture. Age-indeterminatecompression fracture deformity of the T6 vertebral body superior endplate associated with a thin sclerotic line and with approximately 30% height loss centrally, which may represent an spqlv-pi-cqradlpv microtrabecular fracture. Chronic-appearing sbzljpo-oy-trto height loss remainingthoracic vertebral bodies. No retropulsion at any level. Osseous structures are markedly demineralized. DISCS: Multilevel mild disc space narrowing. DEGENERATIVE CHANGES: Overall ibwa-ku-gspkefsz multilevel degenerative changes. SPINAL CANAL/NEUROFORAMEN: No significant spinal canal stenosis.High-grade neuroforaminal narrowing at the right T2-T3 through T5-T6 levels andleft T10-T11 level in addition to nnbq-pt-npzyogdk neuroforaminal narrowing elsewhere. SOFT TISSUES: Visualized soft tissues are normal. OTHER: Dependent atelectasis of the lungs bilaterally. Mildly tortuous thoracic aorta with fmownnsh-gp-kgbhhz calcific atherosclerosis.Multiple calcified mediastinal lymph nodes that is suggestive of prior healed granulomatous disease. Moderate-sized hiatal hernia. These findings are better evaluated on concurrently reported chest, abdomen, and pelvis CT. LUMBAR SPINE: ALIGNMENT: Mild dextroconvex curvature of the lumbar spine with degenerative-related mild retrolisthesis of L4 on L5 and grade 1 anterolisthesis of L5 on S1 (measuring 7 mm). No traumatic malalignment. BONES: No evidence of an acute fracture. Chronic anterior compression fracture deformity of the L1 vertebral body resulting in avzppnnawpdrw25% height loss associated with approximately 4 mm retropulsion and evidence prior vertebroplasty/kyphoplasty change. Remaining vertebral bodyheights are maintained. 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 Osseous structures are markedly demineralized. DISCS: Multilevel advanced disc space narrowing and vacuum discphenomena at all levels. DEGENERATIVE CHANGES: Overall mhctymsr-hz-rmqiho multilevel degenerative change, characterized by varying degrees of posterior disc bulges, ligamentum flavum hypertrophy, and facet arthropathy. SPINAL CANAL/NEUROFORAMEN: Multilevel spinal canal stenoses that isnotably mild at the T12-L1 and L2-L3 levels, elmldcas-ug-tpyvtr at the L3-L4 and L4-L5 levels, and moderate at the L5-S1 level secondary to posteriordisc bulges, ligamentum flavum hypertrophy, and bilateral facet arthropathy. Multilevel neuroforaminal narrowing that is predominantly moderate fromthe bilateral L2-L3 through L5-S1 levels. SOFT TISSUES: Symmetric atrophy of the posterior paraspinal musculatureand mild edema of the posterior paraspinal fat. OTHER: Mild degenerative changes of the right greater than leftsacroiliac joints. Left kidney with a simple cyst measuring up to 3.1 cm. Scattered colonic diverticula without evidence of diverticulitis. Extensivecalcific atherosclerosis of the abdominal aorta and proximal branches. These findings are better evaluated on concurrently reported chest, abdomen,and pelvis CT. IMPRESSION: 1.No acute intracranial abnormality. 2.No acute maxillofacial fracture. 3.No acute fracture or traumatic malalignment of the cervical spine. 4.Age-indeterminate compression fracture deformities of the T5 and T6 vertebral bodies resulting in 30% height loss and associated with a thin sclerotic line through the superior endplates at these levels, which may represent awadq-vm-egpdvucj microtrabecular fractures. No evidence of retropulsion. Recommend correlation with point tenderness at theselevels to assess for acuity. 5.No acute fracture or traumatic malalignment of the lumbar spine. 6.Heterogeneous left thyroid lobe with an inferior pole exophytic nodule measuring approximately 2.7 x 2.3 cm in the axial plane. Recommend follow-up nonemergent outpatient thyroid ultrasound if not recently performed. 7.Please refer to concurrently reported chest, abdomen, and pelvis CTfor description of additional nonspine-related abnormalities. > Interpreting Provider: Bronson Elliott MD, PhD on 11/01/2023 10:38 PM Kathryn Quach MD CT ORDERABLES * XR PELVIS 1 OR 2VW (11/01/2023 7:24 PM CDT) Anatomical Region Laterality Modality Pelvis Radiographic Anahy ging 11/01/2023 7:22 PM CDT Impressions 11/01/2023 9:17 PM CDT IMPRESSION: Lucency to the right femoral neck may represent a fracture. This will be better characterized on CT chest abdomen pelvis. Report dictated by Sarah Keith Dr, MD (vice president industrial relations). I, Loreto Bone MD have personally reviewed and interpreted this examination/study. > Interpreting Provider: Loreto Bone MD on 11/01/2023 9:17 PM Narrative 11/01/2023 9:17 PM CDT PROCEDURE: ??XR PELVIS 1 OR 2VW, DATE/TIME OF EXAM: ??11/01/2023 7:10 PM, LOCATION ??[facility] INDICATION: T14.90XA: Trauma ADDITIONAL CLINICAL INFORMATION: Ordering Provider Reason For Exam: ??r/o fracture Technologist Note: Additional: COMPARISON: None. FINDINGS: Lucency to the right femoral neck may represent a fracture. This will be better characterized on CT chest abdomen pelvis. The femoral heads appear well-seated within their respective acetabula. The pubic symphysis is intact. Bone density and texture are normal. The sacroiliac joints are normal. Procedure Note Loreto Bone MD - 11/01/2023 PROCEDURE: XR PELVIS 1 OR 2VW, DATE/TIME OF EXAM: 11/01/2023 7:10 PM, LOCATION [facility] INDICATION: T14.90XA: Trauma ADDITIONAL CLINICAL INFORMATION: Ordering Provider Reason For Exam: r/o fracture Technologist Note: Additional: COMPARISON: None. FINDINGS: Lucency to the right femoral neck may represent a fracture. This will be better characterized on CT chest abdomen pelvis. The femoral headsappear well-seated within their respective acetabula. The pubic symphysis is intact. Bone density and texture are normal. The sacroiliac joints are normal. IMPRESSION: Lucency to the right femoral neck may represent a fracture. This will be better characterized on CT chest abdomen pelvis. Report dictated by Sarah Keith Dr, MD (vice president industrial relations). I, Loreto Bone MD have personally reviewed and interpreted this examination/study. > Interpreting Provider: Loreto Bone MD on 49:17 PM Kathryn Quach MD DIAGNOSTIC IMAGING [facility] Care Teams Manager Cable Relationship Specialty Start Date End Date Pierre Acuna DO [address] [place], [place] [id number] PCP - General Family Medicine 11/02/23
--- OUTSIDE RECORDS SUMMARY | 2024-06-09 02:22 | XMS_ITS | Encounter Summary ---
Author Organization [facility] Address [address] [place] [address]. [place] [address] [place] [address] Care Team Providers Care Dice Maker Name Role Phone Pierre Florence DO Unavailable Dick Wu MD Unavailable Unavailabl e Pierre Florence DO Primary Care Provider [phone] Reason for Visit * Reason Comments Consult Leg swelling Encounter Details Date Type Department Care Team (Latest Contact Info) Description 01/03/2020 1:30 PM CDT Office Visit [facility] AT [address] [place] [id number] Dick Wu MD Consult (Leg swelling) Social History Tobacco Use Types Packs/Day Years Used Date Smoking Tobacco: Never Smokeless Tobacco: Never Comments Unknown Sex and Gender Information Value Date Recorded Sex Assigned at Not on file Legal Sex Female 5:57 PM SCREEN [employer]ENT [employer]ER Gender Identity Not on file Sexual Orientation Not on file COVID-19 Exposure Response Date Recorded In the last month, have you been in contact with someone who was confirmed or suspected to have Coronavirus / COVID-19? Unable to assess 01/03/2020 2:37 PM CDT documented as of this encounter Last Filed Vital Signs Vital Sign Reading Time Taken Comments Blood Pressure 157/113 01/03/2020 2:22 PM CDT Pulse 72 01/03/2020 2:21 PM CDT Temperature 36.7 ??C (98 ??F) 01/03/2020 2:21 PM CDT Respiratory Rate 22 01/03/2020 2:21 PM CDT Oxygen Saturation 97% 01/03/2020 2:21 PM CDT Inhaled Oxygen Concentration - - Weight 126.6 kg (279 lb 3.2 oz) 01/03/2020 2:21 PM CDT Height 160 cm (5' 3 ) 01/03/2020 2:21 PM CDT Body Mass Index 49.46 01/03/2020 2:21 PM CDT documented in this encounter Patient Instructions * Patient Instructions* Yael Beck RN - 01/03/2020 1:30 PM CDT 1. D/c amlodipine 2 Start Avapro 150 mg Q am, Lasix 20 mg Q am, KCl 10 mEq Q day. BMP, T4, TSH, Mg in 7-[address] scan of abdomen ([place]) 4. RTC 1 year 5. Lose wt documented in this encounter Progress Notes * Dick Wu MD - 01/03/2020 1:30 PM CDT Reason for Visit: Consult (Leg swelling) History of Present Illness: Recommendations and Plan: Medications: Current Outpatient Medications: ??? amLODIPine 5 MG tablet, Take 5 mg by mouth daily. , Disp: , Rfl: ??? Calcium Carb-Cholecalciferol 600-100 MG-UNIT Cap, Take 1 tablet by mouth daily., Disp: , Rfl: ??? ELIQUIS 5 MG tablet, Take 5 mg by mouth 2 (two) times daily. , Disp: , Rfl: ??? esomeprazole 40 MG capsule, Take 40 mg by mouth every morning before breakfast. , Disp: , Rfl: ??? HYDROcodone Bitartrate ER 40 MG Capsule Extended Release 12 hour Abuse- Deterrent, , Disp: , Rfl: ??? HYDROcodone-acetaminophen 10-325 MG tablet, Take 1 tablet by mouth every 8 (eight) hours as needed. , Disp: , Rfl: ??? levothyroxine 75 MCG tablet, Take 75 mcg by mouth every morning. , Disp: , Rfl: ??? LUMIGAN 0.01 % Solution, Place 1 drop into both eyes nightly at bedtime. , Disp: , Rfl: ??? PARoxetine 20 MG tablet, Take 20 mg by mouth every morning. , Disp: , Rfl: ??? potassium chloride CR 10 MEQ tablet, Take 10 mEq by mouth 2 (two) times daily. , Disp: , Rfl: ??? solifenacin 5 MG tablet, Take 5 mg by mouth daily. , Disp: , Rfl: ??? vitamin B-12 (B-12) 500 MCG tablet, Place 500 Int'l Units under the tongue daily., Disp: , Rfl: Allergies Allergen Reactions ??? Cristian Inhibitors Other (see comment) Cough ??? Clarithromycin Unknown ??? Ezetimibe Unknown ??? Statins Unknown Past Medical History: Diagnosis Date ??? Arthritis ??? Esophageal stricture ??? GERD (gastroesophageal reflux disease) ??? Hypertension ??? Post-menopausal bleeding Past Surgical History: Procedure Laterality Date ??? ENDOSCOPY ??? REPLACEMENT TOTAL KNEE Social History Tobacco Use ??? Smoking status: Never Smoker ??? Smokeless tobacco: Never Used Family History Problem Relation Name Age of Onset ??? Diabetes Sister ??? Cancer Mother ??? Stroke Father Family Status Relation Name Status ??? Sister (Not Specified) ??? Mother (Not Specified) ??? Father (Not Specified) Review of Systems Constitutional: Positive for diaphoresis. Negative for recent unintentional weight gain, recent unintentional weight loss and new or significant fatigue. HENT: Negative for new or significant hearing loss. Eyes: Negative for blurred vision and double vision. Respiratory: Negative for cough, new or significant shortness of breath and snoring. Cardiovascular: See HPI Positive for leg swelling. Gastrointestinal: Positive for heartburn. Negative for blood in stool and melena. Genitourinary: Negative for dysuria. Musculoskeletal: Positive for joint stiffness/pain. Negative for myalgias. Skin: Negative for rash. Neurological: Positive for dizziness. Negative for tingling/numbness and focal weakness. Endo/Heme/Allergies: Negative for new or significant bruising/bleeding and polydipsia. Psychiatric/Behavioral: Positive for nervous/anxious. Negative for depression and new or significant memory loss. All other systems reviewed and are negative. Filed Vitals: 01/03/20 1421 01/03/20 1422 BP: 142/61 (!) 157/113 Pulse: 72 Resp: 22 Temp: 98 ??F (36.7 ??C) SpO2: 97% Weight: 126.6 kg (279 lb 3.2 oz) Height: 5' 3 (1.6 m) Body mass index is 49.46 kg/m??. Physical Exam Rate/Rhythm: regular rhythm and normal rate . Heart Sounds: normal heart sounds, normal S1 and normal S2 no gallop, no S3 sound, no S4 sound and no murmur. . PMI: PMI not displaced. Pulses: normal pulses Right Carotid pulses 2+, Left Carotid pulses 2+, Right Radial pulses 2+, LeftRadial pulses 2+, Right Femoral pulses 2+, Left Femoral pulses 2+, Right Popliteal pulses 2+, Left Popliteal pulses 2+, Right DP pulses 2+, Left DP pulses 2+, Right PT pulses 2+Left PT Pulses 2+, Edema left: 1+. , Edema Right: 1+. , Constitutional: healthy appearance Mas, cane and walker, obese not distressed. . Neck: normal range of motion, neck supple and thyroid normal no JVD. . Pulmonary/Chest Wall: effort normal and breath sounds normal . HEENT: teeth/gums normal and oropharynx clear and moist. . Abdomen: abdomen soft and bowel sounds normal Distention. No tenderness. no mass. no hepatomegaly. No splenomegaly. Abdominal aorta not palpably enlarged. No abdominal aortic bruit. . Eyes: pupils equal, round, and reactive to light and conjunctivae normal. Neurological: alert, oriented x 3, appropriate for situation, intact cranial nerves and normal motor skillsnormal gait, . Skin: dry and warm no cyanosis and no clubbing. Musculoskeletal: no kyphosis normal ROM Cardiovascular Comments: The documentation for the above exam was created using a template entered by ancillary staff however the physical exam was completed entirely by the provider responsible for this visit. The physical exam documentation was reviewed and modified by the provider to reflect his/her findings. Diagnoses/Impression: No diagnosis found. Referring Provider: Pierre Florence PCP: PIERRE FLORENCE DO * Dick Wu MD - 01/03/2020 12:00 AM CDT HISTORY OF PRESENT ILLNESS: Mrs. Fierro seen in the cardiology clinic today as a self-referred new patient. Her main complaint for the self referral was ongoing leg swelling. Mrs. Fierro relates that she has a history of a cardiac murmur, which has been treated in the past by Inderal. She also has a history of deep venous thrombosis and pulmonary embolus involving the left leg and left lung approximately 1 year ago. She also relates a history of esophageal stricture requiring stretching few weeks ago at the time of an EGD. This also revealed evidence of a hiatal hernia. Mrs. Fierro's main complaint at the present time revolves around swelling everywhere. She also complains of generalized arthritis. As a result of her ongoing difficulties, she underwent an echocardiogram in November of this year, which was interpreted by Dr. Erasto Granados. Overall, left ventricularsystolic function was difficult to assess, but it did appear preserved with LVEF estimated at 55% to 60%. There was an element of mild concentric left ventricular hypertrophy and evidence of mild pulmonary hypertension with an estimated peak right ventricular systolic pressure of 41 mmHg. Mrs. Fierro does admit to some ongoing chest pain, which she has always attributed to GERD. She also complains of ongoing shortness of breath, particularly related to exertion. She denies any overt symptoms of congestive heart failure such as paroxysmal nocturnal dyspnea, orthopnea, or pedal edema. She has had no palpitations, syncope, or near syncope. She denies any recent symptoms to suggest TIA or CVA. She is tolerating her present medications well. Mrs. Fierro's cardiac risk factors for coronary artery disease include a questionable family history as her mother underwent permanent pacemaker placement. She has a history of hypertension as well as hyperlipidemia. She denies any history of tobacco abuse, diabetes mellitus, or clinical features to suggest sleep apnea. A review of the available information shows that Mrs. Fierro underwent a CT scan of the abdomen on 12/27/19, which revealed a 2.5 cm mildly septated cysts of the mid to upper left kidney with severalsmaller left renal cysts and small right parapelvic renal cysts. A hepatic cyst was also noted and associated with diverticulosis of the descending colon, a small hiatal hernia, and cardiomegaly. Laboratory from October of this year showed a serum potassium of 4.2 with a BUN of 13 and creatinine 0.81. The serum BNP level was elevated at 187. A CBC showed a serum hemoglobin of 13.7 with hematocritof 43.1 and a normal platelet count of 296,000. RECOMMENDATIONS AND PLAN: The exact etiology of Mrs. Fierro's generalized edema is unclear, although I suspect that it may be at least partially related to her ongoing Amlodipine therapy. She has no present complaints to suggest ongoing anginal chest pain, overt symptoms of congestive heart failure, or clinical evidence of hemodynamically significant arrhythmias. Further evaluation and treatment is warranted. After a long discussion in the clinic, I have recommended the following to Mrs. Fierro: 1. Discontinue Amlodipine for now. We will begin Avapro at 150 mg p.o. q.a.m. in an effort to control her hypertension during this change. 2. Initiate diuretic therapy using Lasix with Potassium supplementation. Follow up laboratory to include thyroid function tests and serum electrolytes will be performed in 1 week. 3. Aggressive attempts at weight loss and participation in some sort of exercise program. 4. Annual followup in the cardiology clinic. I have encouraged Mrs. Fierro to contact me in the meantime should she have any questions or problems. documented in this encounter Plan of Treatment Not on file documented as of this encounter Results * T4; TOTAL (01/14/2020) TOTAL T4 9.0 01/14/2020 Dick Wu MD LABORATORY Final Resul t * TSH (01/14/2020) TSH 1.63 01/14/2020 Dick Wu MD LABORATORY Final Resul t * MAGNESIUM (01/14/2020) MAGNESIUM 1.8 01/14/2020 Dick Wu MD LABORATORY Final Resul t * BASIC METABOLIC PANEL (01/14/2020) SODIUM S/P/B 142 POTASSIUM S/P/B 4.0 CO2 31 CHLORIDE S/P/B 105 GLUCOSE 111 mg/dL CALCIUM S/P/B 8.8 BUN 15 CREATININE S/P/B 0.75 0.5 - 1.0 EGFR AFR. AMER. >60 <=90 EGFR NON-AFR. AMER. >60 <=90 01/14/2020 Dick Wu MD LABORATORY Final Resul t documented in this encounter Visit Diagnoses Diagnosis Generalized edema- Primary Edema Essential hypertension Unspecified essential hypertension documented in this encounter Care Teams Dice Maker Relationship Specialty Start Date End Date Pierre Florence DO [address] [place] [address] PCP - General FAMILY PRACTICE 01/03/20 Pierre Florence DO [address] [place] [address] FAMILY PRACTICE 12/03/19 Dick Wu MD [address] [place] [address] Consulting Physician CARDIOVASCULAR DISEASE 12/03/19 documented as of this encounter
--- OUTSIDE RECORDS SUMMARY | 2024-06-09 02:22 | XMS_ITS | Encounter Summary ---
Author Organization [facility] Address [address] [facility] [place] [address] Care Team Providers Care Orchard Sprayer Name Role Phone Pierre Acuna DO Primary Care Provider [phone] Reason for Visit * Reason Comments Fall Pt BIBEMS for Fall. EMS reports patient fell from curb to concrete, +LOC, +thinners, VSS. Pt presents alert, 1cm lac to posterior head, c/o lumbar tenderness, and headache. * Auth/Cert (Routine) Specialty Diagnoses / Procedures Referred By Eliana t Referred To Contact Referral ID Status Reason Start Date Expiration Date Visits Re quested Visits Authorized [id number] 1 1 Encounter Details Date Type Department Care Team (Late st Contact Info) Description 11/01/2023 6:51 PM CDT - 11/08/2023 5:36 PM CDT Hospital Encounter [facility] [address] [place] [id number] Mckay Church MD [address] [facility] [place] [address] Gabriel Hill MD [address] [place] [phone] Rambo Alvarado MD [address] [facility] [place] [address] Kathryn Quach MD [address] [place] [phone] Surgery General Discharge Disposition: Rehab:Inpatient Social History Tobacco Use Types Packs/Day Years [...] and heating? Not hard at all 11/03/2023 [facility] Occupat ional [facility] - Occupational Stress [...] place to sleep or slept in a halfway (including now)? No 11/03/2023 Sex and Gender Information Value Date Recorded Sex Assigned at Not on file Gender Identity Not on file Sexual Orientation Not on file documented as of this encounter Last Filed Vital Signs Vital Sign Reading Time Taken Comments Blood Pressure 151/48 11/08/2023 4:36 PM CDT Pulse 60 11/08/2023 4:36 PM CDT Temperature 36.7 ??C (98.1 ??F) 11/08/2023 12:45 PM C DT Respiratory Rate 18 11/08/2023 4:36 PM CDT Oxygen Saturation 94% 11/08/2023 4:36 PM CDT Inhaled Oxygen Concentration 21% 11/06/2023 7 :20 PM CDT Weight 113.4 kg (250 lb) 11/03/2023 12:00 AM CDT Height 160 cm (5' 2.99 ) 11/03/2023 12:00 AM CDT Body Mass Index 44.3 11/03/2023 12:00 AM CDT documented in this encounter Functional [...] No 11/03/2023 documented as of this encounter Discharge Summaries * Tonie King PA-C - 11/08/2023 9:29 AM CDT Physician Discharge Summary Patient ID: Promise Fierro [id number] 83 year old 1940 Admit date: 11/01/2023 Discharge date and time: 11/08/23 9:30am Admitting Physician: Kathryn Quach MD Discharge Physician: Jamil Bernard MD Present on Admission: Allergies Trauma Other closed fracture of thoracic vertebra, unspecified thoracic vertebral level, initial encounter([facility]) Closed fracture of multiple ribs of left side, initial encounter Acute traumatic pain Scalp laceration Discharged Condition: good Indication for Admission: Ground level fall with age indeterminate thoracic vertebral fractures andrib fractures Hospital Course: Promise Fierro is 83 year old female with PMHx of HTN, DVT/PE on Eliquis, HLD that presented on 11/01/23 s/p GLF. She sustained scalp laceration/hematoma. (Closed with 3-0 chromic gut in ED). Found tohave age-indeterminate Thoracic and Rib fractures. Patient was previously on home [place] TID 10mg/325mg due to chronic back pain. Her pain levels and blood pressure were initially barriers to her participating in PT/OT. Home meds and additional pain meds and additional blood pressure meds were initiated per geriatric medicine recommendations. Once her symptoms were managed, she progressed well with therapy. Per therapy's recommendation, she would benefit from inpatient rehabilitation. Consults: -Neurosurgery -Geriatric Medicine -Pain Management Discharge Exam: General appearance: alert, cooperative, no distress Heart: regular rhythm, normal S1 and S2, without murmurs, rubs or gallops Lungs: breath sounds normal and symmetric; no rales or wheezes Abdomen: soft, non-tender Extremities: no clubbing or cyanosis, mild edema to lower extremities Disposition: Rehabilitation facility Patient Instructions: Medication List START taking these medications amLODIPine 5 MG tablet Commonly known as: Norvasc Take 1 (one) tablet by mouth once daily ascorbic acid 500 MG tablet Commonly known as: Vitamin C Take 1 (one) tablet by mouth once daily bacitracin ointment Apply to affected area 3 times daily HYDROcodone-acetaminophen 10-325 MG tablet Commonly known as: [place] Take 1 (one) tablet by mouth 3 times daily levothyroxine 75 MCG tablet Commonly known as: Synthroid Take 1 (one) tablet by mouth once daily lidocaine 5 % patch Commonly known as: Lidoderm Apply 2 (two) patches to skin every 24 hours Apply patch to most painful area and remove after 12 hours. May reapply a new patch 12 hours later. nystatin [id number] UNIT/GM powder Commonly known as: Mycostatin Apply to affected area 2 times daily polyethylene glycol 3350 17 g packet Commonly known as: Miralax Take 17 (seventeen) g by mouth once daily vitamin D3 25 MCG (1000 UNITS) tablet Commonly known as: Cholecalciferol Take 2 (two) tablets by mouth once daily zinc gluconate 50 MG tablet Take 1 (one) tablet by mouth once daily CONTINUE taking these medications atorvastatin 40 MG tablet Commonly known as: Lipitor bimatoprost 0.03 % ophthalmic solution Commonly known as: Anastasiyaigan Eliquis DVT/PE Starter Pack 5 MG tablet famotidine 20 MG tablet Commonly known as: Pepcid furosemide 40 MG tablet Commonly known as: Lasix irbesartan 150 MG tablet Commonly known as: Avapro metoprolol succinate XL 24hr 100 MG tablet Commonly known as: Toprol XL PARoxetine 20 MG tablet Commonly known as: Paxil Where to Get Your Medications Information about where to get these medications is not yet available Ask your nurse or doctor about these medications amLODIPine 5 MG tablet ascorbic acid 500 MG tablet bacitracin ointment HYDROcodone-acetaminophen 10-325 MG tablet levothyroxine 75 MCG tablet lidocaine 5 % patch nystatin [id number] UNIT/GM powder polyethylene glycol 3350 17 g packet vitamin D3 25 MCG (1000 UNITS) tablet zinc gluconate 50 MG tablet Contact information for follow-up providers Pierre Acuna DO . Specialty: Family Medicine Contact information: [address] [facility] [address] Zhou Gutiérrez MD . Specialty: Neurological Surgery Contact information: [facility] OF NEUROSURGERY [facility] [address] Contact information for after-discharge care Destination [facility]. Acute Rehab . Service: Inpatient Rehabilitation Contact information: [address] [facility] [phone] Discharge Instructions Return precautions: Please call your healthcare provider or go to the ER for fever 100.4??F (38??C) or higher, uncontrolled pain, bleeding, trouble breathing, chest pain, uncontrolled nausea or vomiting, severe headache, confusion or change in mental status, seizures Medication list: If you have any questions about your medications, please be sure to ask the pharmacy when you pick pulling machine operator your prescription. You may also call your primary provider if you are uncertain if you should be taking your medication. Current Discharge Medication List START taking these medications Instructions Authorizing Provider amLODIPine 5 MG tablet Commonly known as: Norvasc Take 1 (one) tablet by mouth once daily Lenore Caravana bacitracin ointment Apply to affected area 3 times daily Lenore Caravana HYDROcodone-acetaminophen 10-325 MG tablet Commonly known as: [place] Take 1 (one) tablet by mouth 3 times daily Lenore Caravana levothyroxine 75 MCG tablet Commonly known as: Synthroid Start taking on: November 06, 2023 Take 1 (one) tablet by mouth once daily Lenore Caravana lidocaine 5 % patch Commonly known as: Lidoderm Apply 2 (two) patches to skin every 24 hours Apply patch to most painful area and remove after 12 hours. May reapply a new patch 12 hours later. Lenore Caravana nystatin [id number] UNIT/GM powder Commonly known as: Mycostatin Apply to affected area 2 times daily Lenore Caravana polyethylene glycol 3350 17 g packet Commonly known as: Miralax Take 17 (seventeen) g by mouth once daily Lenore Caravana CONTINUE taking these medications which have NOT CHANGED Instructions Authorizing Provider atorvastatin 40 MG tablet Commonly known as: Lipitor Take 1 (one) tablet by mouth once daily bimatoprost 0.03 % ophthalmic solution Commonly known as: Lumigan 1 (one) drop at bedtime Eliquis DVT/PE Starter Pack 5 MG tablet Take by mouth 2 times daily famotidine 20 MG tablet Commonly known as: Pepcid Take by mouth 2 times daily furosemide 40 MG tablet Commonly known as: Lasix Take 1 (one) tablet by mouth once daily Each morning irbesartan 150 MG tablet Commonly known as: Avapro Take 1 (one) tablet by mouth once daily Each morning metoprolol succinate XL 24hr 100 MG tablet Commonly known as: Toprol XL Take 1 (one) tablet by mouth once daily PARoxetine 20 MG tablet Commonly known as: Paxil Take 1 (one) tablet by mouth once daily Appointments: It is essential that you keep all of your follow-up appointments and go to your doctors appointments as scheduled. If a follow-up with your primary care provider has not been scheduled, you need to schedule an appointment to follow- up on your hospitalization within 1-2 weeks. If there is a conflict, please call the clinic ahead of time and reschedule the appointment. If you need to call [facility] for any reason, you may reach us at [phone] and dial [phone] for the metal furnace operator. Contact Information for Follow-Up Providers Pierre Acuna DO Specialty: Family Medicine Relationship: PCP - [address] [place] [id number] Next Steps: Follow up Our records show your Primary Care Provider (PCP) is Pierre Acuna DO. Follow Up Instructions for Patient: Within 5-10 Days from Discharge Followup items: Follow up with Dr. Gutiérrez or Latrice Barakat in 6-8 weeks with thoracic upright x-ray for imaging. Please wear brace until that follow up appointment. The neurosurgery clinic will call you to schedulethe appointment, or you can call [phone]. Incidental Findings found on imaging: Please follow up with your PCP -Multicystic lesion arising off the inferior aspect of the left thyroid lobe measuring 2.5 x 2.4 cm. -Scattered granulomas in the chest -1.7 cm simple cyst in hepatic dome -Multiple calcified granulomas are noted in spleen, likely sequelae of prior granulomatous disease -Fatty atrophy of pancreas -Bilateral hypodense lesions throughout both kidneys, largest is 3.2 cm, likely simple cysts -Large hiatal hernia -Diverticulosis -Multiple chronic rib fractures -Severe bilateral hip osteoarthritis -Bone demineralization - High-grade neuroforaminal narrowing at the right T2-T3 through T5-T6 levels and left T10-T11 level -Chronic anterior compression fracture deformity of the L1 vertebral body resulting in approximately 50% height loss associated with approximately 4 mm retropulsion and evidence prior vertebroplasty/kyphoplasty change -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 You may also call your primary provider if you are uncertain if you should be taking your medication. Current Discharge Medication List START taking these medications Instructions Authorizing Provider amLODIPine 5 MG tablet Commonly known as: Norvasc Take 1 (one) tablet by mouth once daily Lenore Moscosona bacitracin ointment Apply to affected area 3 times daily Lenore Caravana HYDROcodone-acetaminophen 10-325 MG tablet Commonly known as: [place] Take 1 (one) tablet by mouth 3 times daily Lenore Caravana levothyroxine 75 MCG tablet Commonly known as: Synthroid Start taking on: November 06, 2023 Take 1 (one) tablet by mouth once daily Lenore Caravana lidocaine 5 % patch Commonly known as: Lidoderm Apply 2 (two) patches to skin every 24 hours Apply patch to most painful area and remove after 12 hours. May reapply a new patch 12 hours later. Lenore Caravadevika nystatin [id number] UNIT/GM powder Commonly known as: Mycostatin Apply to affected area 2 times daily Lenore Moscosona polyethylene glycol 3350 17 g packet Commonly known as: Miralax Take 17 (seventeen) g by mouth once daily Lenore Moscosona CONTINUE taking these medications which have NOT CHANGED Instructions Authorizing Provider atorvastatin 40 MG tablet Commonly known as: Lipitor Take 1 (one) tablet by mouth once daily bimatoprost 0.03 % ophthalmic solution Commonly known as: Lumigan 1 (one) drop at bedtime Eliquis DVT/PE Starter Pack 5 MG tablet Take by mouth 2 times daily famotidine 20 MG tablet Commonly known as: Pepcid Take by mouth 2 times daily furosemide 40 MG tablet Commonly known as: Lasix Take 1 (one) tablet by mouth once daily Each morning irbesartan 150 MG tablet Commonly known as: Avapro Take 1 (one) tablet by mouth once daily Each morning metoprolol succinate XL 24hr 100 MG tablet Commonly known as: Toprol XL Take 1 (one) tablet by mouth once daily PARoxetine 20 MG tablet Commonly known as: Paxil Take 1 (one) tablet by mouth once daily Appointments: It is essential that you keep all of your follow-up appointments and go to your doctors appointments as scheduled. If a follow-up with your primary care provider has not been scheduled, you need to schedule an appointment to follow- up on your hospitalization within 1-2 weeks. If there is a conflict, please call the clinic ahead of time and reschedule the appointment. If you need to call [facility] for any reason, you may reach us at [phone] and dial [phone] for the metal furnace operator. Contact Information for Follow-Up Providers Pierre Acuna DO Specialty: Family Medicine Relationship: PCP - General [address] [place] [address] Next Steps: Follow up Our records show your Primary Care Provider (PCP) is Pierre Acuna DO. Follow Up Instructions for Patient: Within 5-10 Days from Discharge Followup items: Follow up with Dr. Gutiérrez or Latrice Barakat in 6-8 weeks with thoracic upright XR for imaging. Please wear brace until that follow up appointment. The neurosurgery clinic will call you to schedule the appointment, or you can call [phone]. Incidental Findings found on imaging: Please follow up with your PCP -Multicystic lesion arising off the inferior aspect of the left thyroid lobe measuring 2.5 x 2.4 cm. -Scattered granulomas in the chest -1.7 cm simple cyst in hepatic dome -Multiple calcified granulomas are noted in spleen, likely sequelae of prior granulomatous disease -Fatty atrophy of pancreas -Bilateral hypodense lesions throughout both kidneys, largest is 3.2 cm, likely simple cysts -Large hiatal hernia -Diverticulosis -Multiple chronic rib fractures -Severe bilateral hip osteoarthritis -Bone demineralization - High-grade neuroforaminal narrowing at the right T2-T3 through T5-T6 levels and left T10-T11 level -Chronic anterior compression fracture deformity of the L1 vertebral body resulting in approximately 50% height loss associated with approximately 4 mm retropulsion and evidence prior vertebroplasty/kyphoplasty change -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 documented in this encounter Medications at Time of Discharge [...] mouth once daily Each morning HYDROcodone-acetaminoph en ([place]) 10-325 MG tabletIndications:Close d fracture of multiple [...] tablet by mouth once daily nystatin (Mycostatin) 346556 UNIT/GM powder APPLY TO AFFECTED AREA 2 [...] daily 11/08/2023 documented as of this encounter Progress Notes * Ella Flowers, JOLLY - 11/08/2023 3:45 AM CDT Problem: Pain/Discomfort Goal: Patient exhibits reduced pain/discomfort as evidenced by pain scores Outcome: Progressing * Jose M Carranza MSW - 11/07/2023 3:31 PM CDT Facility Transfer Note Actual level of care at discharge: Acute Rehab Facility [facility] ([address] [place] [address]) [place] Made Aware of Special Needs (if applicable):N/A RN Call Report to:[phone] Fax D/C Orders to:[phone] Date/time of transfer: 11/08/23 @2pm Transportation:[facility] Certificate of Medical Necessity rationale: closed fracture of thoracic vertebra, unspecified thoracic vertebral level, initial encounter (HCC) , weakness and fall precaution Accepting MD and contact #: Dr. Bergman Completed and Signed [id number] (if applicable): N/A Family/Other Notified of Transfer (name/phone): SW spoke with patients son Harlan Fierro and he said he will meet the patient at [facility] on 11/08/23. Authorization for [facility] Facility: NA Authorization for Transportation: NA Verified Qualifying Stay(Skilled Only): NOT APPLICABLE Comments: trip # [id number] TRICIA Conde [facility] [phone] 11/07/2023 3:33 PM - * Melissa Beltran RN - 11/07/2023 11:41 AM CDT Called [facility] today spoke with Ana who verified fax number for patient's order for a TLSO brace to be faxed. Order faxed to [phone]. Ana stated that order had been received and brace shall bedelivered naomi. * Danielle Anderson OT - 11/07/2023 11:27 AM CDT [facility] Department of Physical Medicine & Rehabilitation Progress Note Patient: Promise Fierro [facility] Record Number: [id number] Date of : 1940 Age: [age] year old 11/07/23 1100 Missed Visit Missed Visit RN Cancel Awaiting custom TLSO brace. Will continue to follow. * Denilson Dc PT - 11/07/2023 11:02 AM CDT [facility] Department of Physical Medicine & Rehabilitation Patient: Promise Fierro [facility] Record Number: [id number] Date of : 1940 Age: [age] year old 11/07/23 1102 Missed Visit Missed Visit RN Cancel Awaiting TLSO brace. * Jose M Carranza MSW - 11/07/2023 9:14 AM CDT Care Coordination Progress Note Anticipated level of care at discharge: Acute Rehab Facility: Anticipated level of care provider: None: Anticipated Discharge Date: 11/06/23: Discharge Plan: SW followed up with Abigail at [facility] she reports they do not have a bed available today and weekend staff should follow up with [facility] karley Taipa ([phone]) over the weekend to see if a bed becomes available Friday or Friday (). 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 No Transportation at Discharge: Family: READMISSION RISK SCORE is 14 at 9:19 AM 11/07/2023.: Name: TRICIA Conde * Jamil Bernard MD - 11/07/2023 5:59 AM CDT Images from the original note were not included. Trauma Floor Progress Note Admit Date: 11/01/2023 5 Subjective: Promise Fierro is 83 year old female with PMHx of HTN, DVT/PE on Eliquis, HLD that presented on 11/01/23 s/p GLF. She sustained scalp laceration/hematoma. She denies hx of prior falls in the last yearbut gets dizzy often with standing from her medications. She has chronic pain in her back and had hx of multiple epidural injections which helped initially but has taken [place] TID 10mg/325 mg due to no longer getting back injections. She has been in rehab before in [place], [place] when she had knee replacement surgery. Patient lives alone in a house with a paid caregiver. Son lives within 1 block. Patient has not been able to get out of her house recently due to decreasing mobility from back pain andleg swelling. Son states that if she goes to rehabilitation hospital, they would like her to go to [place] in [facility]. Injuries: -2 cm laceration to posterior scalp - repaired in ED with 3-0 chromic gut suture -Left rib 5-9 fractures -Age indeterminate T5 vertebral body compression deformity PMHx: -GERD -HTN -PE/DVT -MDD -Chronic pain Interval History: 11/06: NAEON. VSS. Patient states that pain is well controlled. BP is controlled on current regimen.Pt states that her scalp is itchy and bumpy - denies any previously diagnosed skin/scalp conditions. IS is 1000ml this am. 11/05: NAEO. Getting 1200 on IS. PT/OT recommending rehab for impaired mobility and ADLs, pending placement. 11/04: Pt reports pain is controlled. Pending rehab placement. Continuing to work on IS hourly 11/03: Overnight pt required labetalol 10mg PRN once for elevated BP. Pt reports pain was slightly worsened overnight but is controlled this AM. 11/02: VSS. NAEON. Patient states that her pain is well controlled on her current regimen. IS this am is 1000. 11/01: NAEON. Pt seen by pain medicine and taught how to use IS. Reports rib pain is controlled and most of her pain is in her back. 10/31: Pt arrived to ED Current Facility-Administered Medications Medication Dose Route Frequency Provider Last Rate Last Admin 0.9% NaCl injection 3 mL 3 mL Intracatheter q8h Taurus Ferrari MD 3 mL at 11/06/23 1327 And 0.9% NaCl injection 1-10 mL 1-10 mL Intracatheter PRN Taurus Ferrari MD 0.9% NaCl injection 3 mL 3 mL Intracatheter q8h O'AngelGold madera, DO 3 mL at 11/06/23 2142 And 0.9% NaCl injection 1-10 mL 1-10 mL Intracatheter PRN Anette'Gold Ortiz, DO albuterol-ipratropium (Duo-Neb) nebulizer solution 3 mL 3 mL Inhalation q6h PRN Tonie King PA-C amLODIPine (Norvasc) tablet 5 mg 5 mg Oral QDAY Caravana, Lenore, DO 5 mg at 11/06/23 0932 apixaban (Eliquis) tablet 5 mg 5 mg Oral BID CaravanaChataLenore, DO 5 mg at 11/06/23 2142 atorvastatin (Lipitor) tablet 40 mg 40 mg Oral QDAY Taurus Ferrari MD 40 mg at 11/06/23 0931 bacitracin topical ointment Topical TID Taurus Ferrari MD Given at 11/06/232141 famotidine (Pepcid) tablet 20 mg 20 mg Oral BID Taurus Ferrari MD 20 mg at 11/06/232141 furosemide (Lasix) tablet 40 mg 40 mg Oral QDAY CaredelnaChataLenore, DO 40 mg at 11/06/23 1324 HYDROcodone-acetaminophen ([place]) 10-325 MG tablet 1 tablet 1 tablet Oral TID Jamil Bernard MD 1tablet at 11/06/232141 latanoprost (Xalatan) 0.005 % ophthalmic solution 1 drop 1 drop Each Eye AT BEDTIME Taurus Ferrari MD 1 drop at 11/06/232141 levothyroxine (Synthroid) tablet 75 mcg 75 mcg Oral QDAY AT 0600 Tonie King PA-C 75 mcg at 11/06/23 0629 lidocaine (Lidoderm) 5 % patch 2 patch 2 patch Transdermal q24h Taurus Ferrari MD 2 patch at 11/03/23 0241 losartan (Cozaar) tablet 100 mg 100 mg Oral QDAY Lenore Abbasi DO 100 mg at 11/06/23 0931 melatonin tablet 3 mg 3 mg Oral AT BEDTIME Tonie King PA-C 3 mg at 11/06/23 2142 metoprolol succinate XL 24hr (Toprol XL) tablet 100 mg 100 mg Oral QDAY Taurus Ferrari MD 100 mg at 11/06/23 0931 nystatin (Mycostatin) powder Topical BID Kathryn Quach MD Given at 11/06/23 2142 ondansetron (disintegrating) (Zofran ODT) tablet 4 mg 4 mg Oral q6h PRN Taurus Ferrari MD Or ondansetron (Zofran) injection 4 mg 4 mg Intravenous q6h PRN Taurus Ferrari MD oxyCODONE (immediate release) (Roxicodone) tablet 2.5 mg 2.5 mg Oral q4h PRN Tanya Olivia MD Or oxyCODONE (immediate release) (Roxicodone) tablet 5 mg 5 mg Oral q4h PRN Tanya Olivia MD PARoxetine (Paxil) tablet 20 mg 20 mg Oral QDAY Taurus Ferrari MD 20 mg at 11/06/23 0932 polyethylene glycol 3350 (Miralax) packet 17 g 17 g Oral QDAY Taurus Ferrari MD 17 g at 11/06/23 0931 senna (Senokot) tablet 8.6 mg 8.6 mg Oral QDAY Taurus Ferrari MD 8.6 mg at 11/06/23 0932 vitamin D3 (Cholecalciferol) 25 MCG (1000 UNITS) tablet 2,000 Units 2,000 Units Oral QDAY Tonie King PA-C Review of Systems Constitutional: Negative for chills and fever. Respiratory: Negative for cough. Cardiovascular: Positive for leg swelling. Musculoskeletal: Positive for myalgias. Skin: Positive for itching. Objective: Patient Vitals for the past 8 hrs: BP Temp Temp src Pulse SpO2 11/07/23 0411 148/48 98.5 ??F (36.9 ??C) Oral 59 91 % 11/07/23 0024 137/49 98.3 ??F (36.8 ??C) Oral 58 93 % Temp (24hrs), Av.4 ??F (36.9 ??C), Min:98 ??F (36.7 ??C), Max:98.6 ??F (37 ??C) I/O last 3 completed shifts: In: 200 [P.O.:200] Out: - Diet: Regular Last BM: 11/06/23 Activity: Activity as tolerated in TLSO Physical Exam HENT: Head: Normocephalic. Comments: Scabbed laceration to left occipital area. No drainage or surrounding erythema. Cardiovascular: Rate and Rhythm: Normal rate. Pulmonary: Effort: Pulmonary effort is normal. No respiratory distress. Breath sounds: No stridor. No wheezing, rhonchi or rales. Comments: IS is 1000 this am Abdominal: Palpations: Abdomen is soft. Tenderness: There is no abdominal tenderness. Musculoskeletal: General: Normal range of motion. Skin: General: Skin is warm and dry. Comments: Multiple, raised, flesh colored papules to posterior scalp. Neurological: Mental Status: She is alert and oriented to person, place, and time. Psychiatric: Mood and Affect: Mood normal. Comments: Pressured speech Data Review: CBC: Recent Labs Component Name 11/04/23 0156 11/03/23 0240 11/02/23 0711 WBC 6.2 5.7 7.6 HGB 11.7* 11.7* 12.3 HCT 32.7* 31.7* 34.4* PLTCOUNT 205 235 247 BMP: Recent Labs Component Name 11/04/23 0156 11/03/23 0240 11/02/23 0711 POTASSIUM 3.7 3.7 4.5 CO2 24 BUN 11 12 14 CREATININE 0.60 0.60 0.54* GLUCOSE 103 104 98 CALCIUM 8.8 8.7 9.0 Assessment: Principal Problem: Other closed fracture of thoracic vertebra, unspecified thoracic vertebral level, initial encounter([facility]) Active Problems: Allergies Trauma Closed fracture of multiple ribs of left side, initial encounter Acute traumatic pain Scalp laceration Incidentals: - 2x2 cm thyroid nodule Neuro: Acute traumatic pain Thoracic vertebra fracture Anxiety Insomnia MDD -Does not require further inpatient neurosurgery care. Exam and imaging have remained stable. They recommend: - Activity as tolerated in TLSO brace - Can resume anticoagulation as necessary - Follow up with Dr. Gutiérrez or Latrice Barakat outpatient in 6-8 weeks with thoracic upright XR for imaging -They recommend TLSO brace and calls/orders were placed for one on 11/05 - Geriatric medicine recommends Melatonin 6 mg at hs - On home paroxetine 20 mg - Continue home [place] regimen with PRN oxy - Continue multimodal analgesia regimen HEENT: Posterior scalp laceration - Laceration repaired in the ED with 3-0 chromic gut - Laceration healing well, bacitracin applied for itching Respiratory: Left rib 5-9 fractures (acute on chronic) - Encourage IS (1000 today), pulmonary hygiene, OOBAT - Respiratory consult - duonebs PRN Cardiovascular: Hypertension LE edema - Geriatric medicine recommends 100 mg metoprolol and Losartan 100 mg (pt regularly take irbesartan, but it's not on formulary) - Pt started on amlodipine 5mg QD on 11/03 per geriatric recs - Restarted Lasix 40 mg on 11/05 - Per Ortho Trauma: Bilateral lower extremity CARLOS hose should be applied as soon as patient is ableto tolerate them, worn whenever patient is awake - Monitor VS q4 GI/FEN: GERD - Diet: Regular - SUP: n/a - BM: 11/05/23 - Bowel regimen (Senna, Miralax) - Per ortho trauma: Multiple high protein supplements per day, Vitamin C, zinc to promote wound healing - On home famotidine and pantoprazole Endocrine: Hypothyroidism with 2x2cm thyroid nodule - Started home levothyroxine 75 mcg - Will need to see endocrine as outpatient for thyroid nodule Renal: - Cr Recent Labs Component Name 11/04/2315511/03/2323911/02/23 0711 CREATININE 0.60 0.60 0.54* - CrCl Serum creatinine: 0.6 mg/dL 11/04/23155 Estimated creatinine clearance: 86.1 mL/min , UOP adequate - voiding via toilet - intake and output every 6 hours -replete electrolytes as needed to maintain K >4, Mag >2, Phos >3 - BMP prn Hematology: Acute blood loss anemia Recent Labs Component Name 11/04/23 01511/03/23 0240 11/02/23 0711 WBC 6.2 5.7 7.6 HGB 11.7* 11.7* 12.3 HCT 32.7* 31.7* 34.4* PLTCOUNT 205 235 247 - transfuse for hgb <7 - CBC prn Infectious Disease: WBC wnl; remains afebrile - CBC prn - rivero culture and skin check for fevers >101.5 Muscloskeletal: Thoracic vertebra fractures -see neuro recommendations above SKIN: Scalp laceration Papules -sutures are absorbable, scalp laceration scabbed and healing. Bacitracin application daily. -Patient encouraged to follow up with PCP or corn grinder for pruritic papules on scalp. Applied ointment to papules and pt states that it helped. Lines/Tubes/Drains: PIV Prophylaxis VTE: LVX, SCDs PT/OT: -Therapy to re-evaluate patient once TLSO brace has been acquired SW: to assist to discharge planning barrier to discharge: Awaiting TLSO brace and PT/OT re-evaluation once new brace is in place. Tonie King PA-C 11/07/2023 5:59 AM I have reviewed the patient's medical record, I have seen and examined the patient with the ART. I have discussed and directed the medical management/treatment and performed decision making for the patients' medical condition and take responsibility for management risk pertaining to this patient. Iagree with the findings and plan of care as documented by the ART. Date of Service: 11/07/2023 Jamil Bernard MD * Gillian Manzo RN - 11/07/2023 4:18 AM CDT Problem: Pain/Discomfort Goal: Patient exhibits reduced pain/discomfort as evidenced by pain scores Outcome: Progressing Goal: Patient uses pharmacological and non-pharmacological pain management strategies. Outcome: Progressing Goal: Patient verbalizes acceptable level of pain relief and ability to engage in desired activity. Outcome: Progressing Problem: Fall Risk Goal: Fall risk and fall related injury risk are minimized (interventions related to the fall risk can be found in the flowsheet documentation) Outcome: Progressing Problem: Balance Goal: LTG - Patient will demonstrate Intervention to enhance balance for safe completion of daily activities Outcome: Progressing * Melissa Beltran RN - 11/06/2023 7:21 PM CDT Problem: Pain/Discomfort Goal: Patient exhibits reduced pain/discomfort as evidenced by pain scores 11/06/20231919 by Melissa Beltran RN Outcome: Progressing 11/06/20231619 by Melissa Beltran RN Outcome: Adequate for Discharge Goal: Patient uses pharmacological and non-pharmacological pain management strategies. 11/06/20231919 by Melissa Beltran RN Outcome: Progressing 11/06/20231619 by Melissa Beltran RN Outcome: Adequate for Discharge Goal: Patient verbalizes acceptable level of pain relief and ability to engage in desired activity. 11/06/20231919 by Melissa Beltran RN Outcome: Progressing 11/06/20231619 by Melissa Beltran RN Outcome: Adequate for Discharge Problem: Fall Risk Goal: Fall risk and fall related injury risk are minimized (interventions related to the fall risk can be found in the flowsheet documentation) 11/06/20231919 by Melissa Beltran RN Outcome: Progressing 11/06/20231619 by Melissa Beltran RN Outcome: Adequate for Discharge Problem: Balance Goal: LTG - Patient will demonstrate Intervention to enhance balance for safe completion of daily activities 11/06/20231919 by Melissa Beltran RN Outcome: Progressing 11/06/20231619 by Melissa Beltran RN Outcome: Adequate for Discharge * Melissa Beltran RN - 11/06/2023 5:10 PM CDT Per Physician's order printed out face sheet and copy of TLSO order to fax to [facility] for retrieval of brace for patient. Call [facility] at number provided and at this time they are closed. Left a message for someone to return call tomorrow due to my returning for another shift. * Melissa Beltran RN - 11/06/2023 4:20 PM CDT Problem: Pain/Discomfort Goal: Patient exhibits reduced pain/discomfort as evidenced by pain scores Outcome: Adequate for Discharge Goal: Patient uses pharmacological and non-pharmacological pain management strategies. Outcome: Adequate for Discharge Goal: Patient verbalizes acceptable level of pain relief and ability to engage in desired activity. Outcome: Adequate for Discharge Problem: Fall Risk Goal: Fall risk and fall related injury risk are minimized (interventions related to the fall risk can be found in the flowsheet documentation) Outcome: Adequate for Discharge Problem: Balance Goal: LTG - Patient will demonstrate Intervention to enhance balance for safe completion of daily activities Outcome: Adequate for Discharge * Gissel Urbano, PT - 11/06/2023 4:11 PM CDT [facility] Department of Physical Medicine & Rehabilitation Progress Note Patient: Promise Fierro [facility] Record Number: [id number] Date of : 1940 Age: [age] year old 11/06/23 1408 Missed Visit Missed Visit Other (Comment) PT cancelled this pm 2/2 pt using bathroom and per RN, pt awaiting TLSO brace. Will cont to follow. * Amrita Torres OT - 11/06/2023 9:23 AM CDT [facility] Physical Medicine and Rehabilitation Occupational Therapy Progress Note Patient: Promise Fierro [facility] Record Number: [id number] Date of : 1940 Age: [age] year old PPE worn by staff: gloves;mask - procedural Recommendations: OT Discharge Recommendations: Patient would benefit from intensive 3-hour multidisciplinary therapy This recommendation is made due to ongoing intensive OT functional needs: ability to actively participate in intensive therapy 3 hours/day, 5 days a week;motivated to participate in therapy;likely toreturn to the community at discharge with support system;patient has the ability to progress and dem onstrate measurable gains as a result of skilled therapy Nurse contacted regarding patient status and/or discharge plan. Activity Level: as tolerated PRECAUTIONS: Spine Precautions: No bending,lifting, no twisting (AAT in UNIT [employer]NAGER [employer]ORES brace) SUBJECTIVE: Subjective: I'm just waiting on my breakfast. Pain Assessment: Pain Location #1 Pain Scale/Observation: Numeric (0-10) Pain Rating Score #1: 0 Sedation Level #1: 1-Awake and alert OBJECTIVE: At start of therapy session, patient found in patient bedside chair and with chair alarm on General Appearance: seated in chair in NAD with UNIT MANAGER [employer] STORES brace in place LDA: IV's: Peripheral line and Telemetry Mental Status/Cognition: Level of Consciousness-Adult: Alert Orientation Level: Oriented X4 Cognition: Follows one step commands;Safety awareness-decreased Following Commands: Follows one step commands with repetition/cues (2/2 slightly [place]) Safety Judgement: Decreased awareness of need for safety Awareness of Errors: Decreased awareness of deficits Mobility: a gait belt and non-slip socks were used for all out of bed activity this date. Bed Mobility: Supine to Sit: Activity Does Not Occur (up in chair upon OT arrival) Transfers: Sit to Stand: Stand By Assist Stand to Sit: Minimal Assistance (for slow descent into chair) Transfer Device: Gait belt;Walker-2 Wheeled Functional Ambulation: Patient ambulated functional household distance with SBA/min assist using w/w. Min cues for safety/upright posture. Balance: Sitting - Static: Good - Sitting - Dynamic: Fair + Standing - Static: Fair Standing - Dynamic: Fair;With Both Upper Extremity's Support Activities of Daily Living: Oral Facial Hygiene: Stand By Assist (comb hair) Lower Body Dressing: Maximal Assistance (don/doff socks seated in chair) ACTIVITY TOLERANCE: Patient's activity tolerance: fair. AM-PAC 6 Clicks Daily Activity Raw Score:: 17 TREATMENT/INTERVENTIONS: ADL training Functional transfer training Endurance training Safety awareness HEP training EDUCATION: While performing OT, Patient was instructed in:functional mobility training, self-care training, safety awareness/fall precautions , home exercise program, spine precautions , discharge planning, use of call light Presented to patient who demonstrates Fair understanding of instructions given. INFORMED CONSENT TO TREATMENT: Plan of care including recommended therapy, goals and frequency, discussed with patient who understands and agrees to proceed. ASSESSMENT: Patient continues to benefit from skilled Occupational Therapy to achieve the following functional goals. Short Term Goals: Goal Formation With patient Patient will perform lower extremity dressing with stand by assist Patient will perform supine to/from sit with stand by assist Patient will demonstrate good understanding of spine precautions [employer] Team Member Goal(s): Patient to discharge to appropriate next level of inpatient care. Plan: Patient continues to benefit from skilled therapy services., Continue with goals as established. If patient is discharged from the facility, this note serves as a discharge summary if further occupational therapy visits did not occur. Refer to filed flowsheet for further details. Following therapy session, patient left in patient bedside chair, with waffle seat cushion in place, with chair alarm on, with call light within reach, with RN, Melissa aware, with therapy cues visible on white board. * Jamil Bernard MD - 11/06/2023 5:48 AM CDT Trauma Surgery Progress Note DATE: 11/06/2023 Patient Name: Promise Fierro : 1940 Admit Date: 11/01/2023 6:51 PM Hospital Day: Hospital Day: 5 History: Promise Fierro is 83 year old female with PMHx of HTN, DVT/PE on Eliquis, HLD that presented on 11/01/23 s/p GLF. She sustained scalp laceration/hematoma. She denies hx of prior falls in the last yearbut gets dizzy often with standing from her medications. She has chronic pain in her back and had hx of multiple epidural injections which helped initially but has taken [place] TID 10mg/325 mg due to no longer getting back injections. She has been in rehab before in [place], [place] when she had knee replacement surgery. Patient lives alone in a house with a paid caregiver. Son lives within 1 block. Patient has not been able to get out of her house recently due to decreasing mobility from back pain andleg swelling. Son states that if she goes to rehabilitation hospital, they would like her to go to [place] in [facility]. Injuries: -2 cm laceration to posterior scalp - repaired in ED with 3-0 chromic gut suture -Left rib 5-9 fractures -Age indeterminate T5 vertebral body compression deformity PMHx: -GERD -HTN -PE/DVT -MDD -Chronic pain Interval History: 11/05: NAEO. Getting 1200 on IS. PT/OT recommending rehab for impaired mobility and ADLs, pending placement. 11/04: Pt reports pain is controlled. Pending rehab placement. Continuing to work on IS hourly. 11/03: Overnight pt required labetalol 10mg PRN once for elevated BP. Pt reports pain was slightly worsened overnight but is controlled this AM. 11/02: VSS. NAEON. Patient states that her pain is well controlled on her current regimen. IS this am is 1000. 11/01: NAEON. Pt seen by pain medicine and taught how to use IS. Reports rib pain is controlled and most of her pain is in her back. 10/31: Pt arrived to ED. Objective: Diet: DIET REGULAR Input and Output: IO last 3 completed shifts In: 250 (2.2 mL/kg) [P.O.:250] Out: 300 (2.6 mL/kg) [Urine:300 (0.1 mL/kg/hr)] Net: -50 Weight: 113.4 kg Vital Signs: Temp: [97.5 ??F (36.4 ??C)-97.9 ??F (36.6 ??C)] Pulse: [57-66] Resp: [18] BP: (147-175)/(48-55) SpO2: [94 %-98 %] Physical Exam: Gen: Alert and oriented, NAD ENT: 2cm laceration on left posterior scalp, no drainage noted. Resp: unlabored breathing on RA CV: RRR, pulse 2+ Abd: Soft, nontender to palpation, nondistended, no rebound/guarding, non-peritoneal MSK: WWP, no c/c/e Neuro: Moving all extremities, no focal deficits Psych: Appropriate mood and affect Labs: Recent Labs Component Name 11/04/23 0156 11/03/23 0240 11/02/23 0711 WBC 6.2 5.7 7.6 HGB 11.7* 11.7* 12.3 HCT 32.7* 31.7* 34.4* PLTCOUNT 205 235 247 Recent Labs Component Name 11/04/23 0156 11/03/23 0240 11/02/23 0711 POTASSIUM 3.7 3.7 4.5 CO2 24 27 24 BUN 11 12 14 CREATININE 0.60 0.60 0.54* GLUCOSE 103 104 98 CALCIUM 8.8 8.7 9.0 Imaging: CT HEAD WO CONTRAST - Head Trauma, CSF leak, mental status changes Result Date: 11/01/2023 IMPRESSION: 1.No acute intracranial abnormality. 2.No acute maxillofacial fracture. 3.No acute fracture or traumatic malalignment of the cervical spine. 4.Age-indeterminate compression fracture deformities of the T5 and T6 vertebral bodies resulting in 30% height loss and associated with a thin sclerotic line through the superior endplates at these levels, which may represent xuigf-dl-cizewtlh microtrabecular fractures. No evidence of retropulsion. Recommend correlation with point tenderness atthese levels to assess for acuity. 5.No acute [...] Elliott MD, PhD on 11/01/2023 10:[address] FACIAL BONES WO CONTRAST - Facial trauma, fx suspected, blunt Result Date: 11/01/2023 IMPRESSION: 1.No acute intracranial abnormality. 2.No acute maxillofacial fracture. 3.No acute fracture or traumatic malalignment of the cervical spine. 4.Age-indeterminate compression fracture deformities of the T5 and T6 vertebral bodies resulting in 30% height loss and associated with a thin sclerotic line through the superior endplates at these levels, which may represent miyjs-yq-cwjwrgeu microtrabecular fractures. No evidence of retropulsion. Recommend correlation with point tenderness atthese levels to assess for acuity. 5.No acute [...] Elliott MD, PhD on 11/01/2023 10:[address] THORACIC SPINE WO CONTRAST - T/L-spine trauma, spine fracture Result Date: 11/01/2023 IMPRESSION: 1.No acute intracranial abnormality. 2.No acute maxillofacial fracture. 3.No acute fracture or traumatic malalignment of the cervical spine. 4.Age-indeterminate compression fracture deformities of the T5 and T6 vertebral bodies resulting in 30% height loss and associated with a thin sclerotic line through the superior endplates at these levels, which may represent vipwx-yn-udmowaaw microtrabecular fractures. No evidence of retropulsion. Recommend correlation with point tenderness atthese levels to assess for acuity. 5.No acute [...] Elliott MD, PhD on 11/01/2023 10:[address] LUMBAR SPINE WO CONTRAST - T/L-spine trauma, Spine fracture Result Date: 11/01/2023 IMPRESSION: 1.No acute intracranial abnormality. 2.No acute maxillofacial fracture. 3.No acute fracture or traumatic malalignment of the cervical spine. 4.Age-indeterminate compression fracture deformities of the T5 and T6 vertebral bodies resulting in 30% height loss and associated with a thin sclerotic line through the superior endplates at these levels, which may represent uqrhx-mx-jptdhykh microtrabecular fractures. No evidence of retropulsion. Recommend correlation with point tenderness atthese levels to assess for acuity. 5.No acute [...] Elliott MD, PhD on 11/01/2023 10:[address] CERVICAL SPINE WO CONTRAST Result Date: 11/01/2023 IMPRESSION: 1.No acute intracranial abnormality. 2.No acute maxillofacial fracture. 3.No acute fracture or traumatic malalignment of the cervical spine. 4.Age-indeterminate compression fracture deformities of the T5 and T6 vertebral bodies resulting in 30% height loss and associated with a thin sclerotic line through the superior endplates at these levels, which may represent vtnbs-bn-luyrjurp microtrabecular fractures. No evidence of retropulsion. Recommend correlation with point tenderness atthese levels to assess for acuity. 5.No acute [...] Elliott MD, PhD on 11/01/2023 10:[address] CHEST ABDOMEN PELVIS W CONT - Abdomen-pelvis trauma, blunt or penetrating Result Date: 11/01/2023 Impression: 1.Age-indeterminate, likely chronic, compression deformity of T5 vertebral body with mild height loss. Refer to dedicated spine CT. 2.Otherwise, no acute chest, abdomen, or pelvis. > Dictated by Paxton Whitley DO (residential mental health worker). IMilad MD have personally reviewed andinterpreted this examination/study. > Interpreting Provider: Milad Mcnulty MD on 11/01/2023 10:30 P M XR PELVIS 1 OR 2VW Result Date: 11/01/2023 IMPRESSION: Lucency to the right femoral neck may represent a fracture. This will be better characterized on CT chest abdomen pelvis. Report dictated by Sarah Keith Dr, MD (residential mental health worker). Loreto Jacques MD have personally reviewed and interpreted this examination/study. > Interpreting Provider: Loreto Bone MD on 11/01/2023 9:17 PM Assessment and Plan: Promise Fierro is a 83 year old female s/p GLF (on Eliquis) here for treatment of injuries listedbelow: Injuries: -2 cm laceration to posterior scalp - repaired in ED with 3-0 chromic gut suture -Left rib 5-9 fractures -Age indeterminate T5 vertebral body compression deformit Incidental Findings: - [id number] thyroid nodule Neuro: acute traumatic pain Thoracic vertebra fracture Anxiety Insomnia MDD - Does not require further inpatient neurosurgery care. Exam and imaging have remained stable. Theyrecommend: - Activity as tolerated in brace - Can resume anticoagulation as necessary - Follow up with Dr. Gutiérrez or Latrice Barakat outpatient in 6-8 weeks with thoracic upright XR for imaging - continue multimodal analgesia regimen - Geriatric medicine recommends Melatonin 6 mg at hs - On home paroxetine 20 mg - Continue home [place] regimen with PRN oxy I HEENT: Posterior scalp laceration - Laceration repaired in the ED with 3-0 chromic gut Respiratory: Left rib 5-9 fractures (acute on chronic_ - encourage IS (1200 today), pulmonary hygiene, OOBAT - Respiratory consult - duonebs PRN Cardiovascular: Hypertension LE edema - Geriatric medicine recommends 100 mg metoprolol and Losartan 100 mg (pt regularly take irbesartan, but it's not on formulary) - Pt started on amlodipine 5mg QD yesterday per geriatric recs - Holding lasix at this time per Geriatric Medicine - Monitor VS q4 GI/FEN: GERD - Diet: Regular - SUP: n/a - BM: (11/03) - Bowel regimen (Senna, Miralax) -On home famotidine and pantoprazole Endocrine: Hypothyroidism with 2x2cm thyroid nodule - Started home levothyroxine 75 mcg - Will need to see endocrine as outpatient for thyroid nodule Renal: - CrCl Serum creatinine: 0.6 mg/dL 11/03/23 0240 Estimated creatinine clearance: 86.1 mL/min , UOP adequate - voiding via purewick - intake and output every 6 hours -replete electrolytes as needed to maintain K >4, Mag >2, Phos >3 - BMP daily Heme: Acute blood loss anemia - Daily CBCs Transfuse Hgb <7, platelets <50 ID: - ALDAIR Muscloskeletal: Thoracic vertebra fractures -see neuro recommendations above SKIN: Scalp laceration - daily wound care per nursing Diet: Regular Activity: AAT Ppx: SCDs and Lovenox LDAs: PIV PT/OT recommending rehab for impaired ability to complete ADLs and low functional mobility at baseline. Pt requires further rehab for acute on chronic rib fractures as well as thoracic compression fracture exacerbated by recent fall. Pt is requiring pain medication treatment for rib fractures and thoracic compression fractures. NSGY recommending patient continue to wear spinal brace until follow up appointment in 6-8 weeks. Patient staffed and discussed with attending, Dr. Bernard. Note to be updated with any changes. Lenore Abbasi DO Trauma Resident, PGY-1 11/06/23 5:48 AM I have seen and examined the patient with the resident and I agree with the findings and plan of care as documented by the resident. Date of Service: 11/06/2023 Jamil Bernard MD * Gillian Manzo RN - 11/06/2023 3:36 AM CDT Problem: Pain/Discomfort Goal: Patient exhibits reduced pain/discomfort as evidenced by pain scores Outcome: Progressing Goal: Patient uses pharmacological and non-pharmacological pain management strategies. Outcome: Progressing Goal: Patient verbalizes acceptable level of pain relief and ability to engage in desired activity. Outcome: Progressing Problem: Fall Risk Goal: Fall risk and fall related injury risk are minimized (interventions related to the fall risk can be found in the flowsheet documentation) Outcome: Progressing Problem: Balance Goal: LTG - Patient will demonstrate Intervention to enhance balance for safe completion of daily activities Outcome: Progressing * Debra Oropeza MSW - 11/05/2023 4:58 PM CDT Care Coordination Progress Note Anticipated level of care at discharge: Acute Rehab Facility: Anticipated level of care provider: None: Anticipated Discharge Date: 11/04/23: Discharge Plan: WALTER spoke to Daphney from [facility] and patient was denied for admission. Per team's request, WALTER sent additional ARU referrals. Orientation Level: Oriented X4: Family Support (Name and Phone): Extended Emergency Contact Information Primary Emergency Contact: harlan fierro Mobile Relation: Son Middleware Architect needed? No Transportation at Discharge: Family: READMISSION RISK SCORE is 14 at 4:58 PM 11/05/2023.: Name: Debra TRICIA Oropeza [phone] * Shani Hernández RPhT - 11/05/2023 11:59 AM CDT MEDICATION TO BEDSIDE DELIVERY: COMPLETE Medication to Bedside delivery was completed for Promise Fierro. A total of 2 prescriptions were delivered to the patient for discharge. Medications were given to NURSE (fiordaliza) This delivery included a controlled substance: NO This delivery included medication that should be stored in the fridge: NO Thank you for allowing the outpatient pharmacy to participate in the care of Promise Fierro. If you have any questions, please contact the outpatient pharmacy at [phone]. [facility] at [address], First Floor [place], [place] [address] Hours of Operation Friday - Friday: 8:00am to 6:00pm Friday: 9:00am to 1:00pm Epic: [facility] *Ensure the patient and clinic's nearby ZIP codes box is unchecked* * Jose M Carranza MSW - 11/05/2023 11:06 AM CDT Care Coordination Progress Note Anticipated level of care at discharge: Acute Rehab Facility: Anticipated level of care provider: None: Anticipated Discharge Date: 11/04/23: Discharge Plan: WALTER followed up with Daphney at [facility] in [place] ([phone]) she reports their medical team needed more clarity on how the patients current fall affects patients current condition and need for rehab. WALTER met with medical team during rounds and explained in more detail. 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 No Transportation at Discharge: Family: READMISSION RISK SCORE is 14 at 11:06 AM 11/05/2023.: Name: TRICIA Conde * Fiordaliza Mclaughlin RN - 11/05/2023 10:44 AM CDT Goals: Safety, comfort measures, monitor VS, pain control Problem: Pain/Discomfort Goal: Patient exhibits reduced pain/discomfort as evidenced by pain scores Outcome: Progressing Goal: Patient uses pharmacological and non-pharmacological pain management strategies. Outcome: Progressing Goal: Patient verbalizes acceptable level of pain relief and ability to engage in desired activity. Outcome: Progressing Problem: Fall Risk Goal: Fall risk and fall related injury risk are minimized (interventions related to the fall risk can be found in the flowsheet documentation) Outcome: Progressing Problem: Balance Goal: LTG - Patient will demonstrate Intervention to enhance balance for safe completion of daily activities Outcome: Progressing * Amrita Torres OT - 11/05/2023 10:24 AM CDT [facility] Physical Medicine and Rehabilitation Occupational Therapy Progress Note Patient: Promise Fierro Med Record Number: [id number] Date of : 1940 Age: [age] year old PPE worn by staff: gloves;mask - procedural Recommendations: OT Discharge Recommendations: Patient would benefit from intensive 3-hour multidisciplinary therapy This recommendation is made due to ongoing intensive OT functional needs: ability to actively participate in intensive therapy 3 hours/day, 5 days a week;motivated to participate in therapy;likely toreturn to the community at discharge with support system;patient has the ability to progress and dem onstrate measurable gains as a result of skilled therapy Nurse contacted regarding patient status and/or discharge plan. Activity Level: as tolerated PRECAUTIONS: Spine Precautions: No bending,lifting, no twisting (AAT in UNIT MANAGER [employer] STORES brace) SUBJECTIVE: Subjective: I might be going to the Rehab today. Pain Assessment: Pain Location #1 Pain Scale/Observation: Numeric (0-10) Pain Rating Score #1: 0 Sedation Level #1: 1-Awake and alert Pain Location : Head Pain Intervention(s): Declined Intervention OBJECTIVE: At start of therapy session, patient found in patient bedside chair and with chair alarm on General Appearance: seated in chair in NAD, UNIT MANAGER [employer] STORES brace in place LDA: IV's: Peripheral line and Telemetry Mental Status/Cognition: Level of Consciousness-Adult: Alert Orientation Level: Oriented X4 Cognition: Follows one step commands;Safety awareness-decreased Following Commands: Follows one step commands with repetition/cues (2/2 [place]) Safety Judgement: Decreased awareness of need for safety Awareness of Errors: Decreased awareness of deficits Mobility: a gait belt and non-slip socks were used for all out of bed activity this date. Bed Mobility: Supine to Sit: Activity Does Not Occur (up in chair upon OT arrival) Transfers: Sit to Stand: Minimal Assistance Stand to Sit: Minimal Assistance Transfer Device: Gait belt Balance: Sitting - Static: Good - Sitting - Dynamic: Fair + Standing - Static: Fair Standing - Dynamic: Fair Activities of Daily Living: Feeding: Set-up (needs assist to open containers) Oral Facial Hygiene: Stand By Assist (facial hygiene seated in chair) Lower Body Dressing: Moderate Assistance (don pants and brief seated in chair with moderate assist to pull up in standing) ACTIVITY TOLERANCE: Patient's activity tolerance: fair. AM-PAC 6 Clicks Daily Activity Raw Score:: 16 TREATMENT/INTERVENTIONS: ADL training Functional transfer training Endurance training Safety awareness EDUCATION: While performing OT, Patient was instructed in:functional mobility training, self-care training, safety awareness/fall precautions , discharge planning, use of call light Presented to patient who demonstrates Fair understanding of instructions given. INFORMED CONSENT TO TREATMENT: Plan of care including recommended therapy, goals and frequency, discussed with patient who understands and agrees to proceed. ASSESSMENT: Patient continues to benefit from skilled Occupational Therapy to achieve the following functional goals. Short Term Goals: Goal Formation With patient Patient will perform lower extremity dressing with stand by assist Patient will perform supine to/from sit with stand by assist Patient will demonstrate good understanding of spine precautions Shelter Goal(s): Patient to discharge to appropriate next level of inpatient care. Plan: Patient continues to benefit from skilled therapy services., Continue with goals as established. If patient is discharged from the facility, this note serves as a discharge summary if further occupational therapy visits did not occur. Refer to filed flowsheet for further details. Following therapy session, patient left in patient bedside chair, with waffle seat cushion in place, with chair alarm on, with call light within reach, with therapy cues visible on white board. * Denilson Dc, PT - 11/05/2023 9:53 AM CDT [facility] Physical Medicine and Rehabilitation Physical Therapy Progress Note Patient: Promise Fierro [facility] Record Number: [id number] Date of : 1940 Age: [age] year old PPE worn by staff: gloves PPE worn by patient: gown - patient, clean;socks - clean Tech: no Recommendations: Discharge PT Discharge Recommendations: Patient would benefit from intensive 3-hour multidisciplinary therapy This recommendation is made due to ongoing intensive PT functional needs: ability to actively participate in intensive therapy 3 hours/day, 5 days a week;patient has the need for more than one skilled therapy service;motivated to participate in therapy;not at baseline due to impaired ability to complete ADL's;functional mobility is significantly below baseline SUBJECTIVE: Subjective: Agreeable to therapy, motivated Pain Assessment: Pain Location #1 Pain Scale/Observation: Numeric (0-10) Pain Rating Score #1: 0 Sedation Level #1: 1-Awake and alert Pain Location : (Ribs) Pain Intervention(s): Declined Intervention PRECAUTIONS: Weight Bearing Status: (no restrictions noted) Activity Level: Activity as Tolerated Spine Precautions: Yes Spine Precautions: (UNIT MANAGER CON[employer] STORES) OBJECTIVE: At start of therapy session, patient found in patient bedside chair and with chair alarm on General Appearance: NAD; UNIT MANAGER [employer] STORES donned LDAs: IV's: Peripheral line Vitals: (*Assess the 3 levels of oxygen saturations both for room air and 02 unless rest on room air is 88% or less). Rest BP: 149/61 HR: 61 Sp02 Sp02 Room Air L O2 Post Activity BP: HR: 77 Sp02 Sp02 96% L O2 Room Air Observations: no dizziness or lightheadedness reported; perspiration with exercise Mental Status/Cognition: Level of Consciousness-Adult: Alert Orientation Level: Oriented X4 Cognition: Follows one step commands;Safety awareness-decreased Mobility: A gait belt and non-slip socks were used for all out of bed activity this date. Bed Mobility: Supine to Sit: Activity Does Not Occur (starts and ends in bedside chair) Sit to Supine: Activity Does Not Occur Transfers: Sit to Stand: Stand By Assist;Minimal Assistance Stand to Sit: Stand By Assist;Minimal Assistance Type of Transfer: (ambulatory) Transfer Device: Gait belt;Walker-2 Wheeled Comments: Sit to stand trials without AD and without BUE use unstable requiring physical assistance. Gait: Weight Bearing Status: (no restrictions noted) Distance Ambulated (ft): 80 FEET (2 standing rest breaks) Ambulation: Assistive Device: Gait Belt;Walker-Bariatric Ambulation: Level of Assistance: Minimum Assistance;Stand By Assist;Requires Verbal Cues for Technique (cues for upright posture) Ambulation: Gait Deviations: Step Length - Decreased;Increased Trunk Flexion;Increased Weight Bearing through Upper Extremity Balance: Balance Scales/Tests Used: Sitting: Static/Dynamic;Standing: Static/Dynamic Sitting - Static: Good - Sitting - Dynamic: Fair + Standing - Static: Fair Standing - Dynamic: Fair;With Both Upper Extremity's Support ACTIVITY TOLERANCE: Patient's activity tolerance: fair plus TREATMENT/INTERVENTIONS: ROM , strengthening exercises, transfer training, gait training, balance activities, and monitoring of vitals BLE AROM exercises, 10 reps x 2 sets - hip abduction - hip flexion - hip adduction against pillow, 3 sec hold - long arc quads - ankle PF/DF 5 times sit to stand AM-PAC 6 Clicks Mobility Raw Score:: 17 EDUCATION: While performing PT, Patient was instructed in:functional mobility training, energy conservation, safety awareness/fall precautions , discharge planning, use of call light Presented to patient who demonstrates Good understanding of instructions given. ASSESSMENT: Patient would benefit from additional Physical Therapy sessions to achieve the following functionalgoals to enhance independence. Short Term Goals: Goal Formation With patient Patient will perform bed mobility with stand by assist and while maintaining back safety precautions Patient will tolerate standing for further mobility assessment. - met Patient will tolerate edge of bed >5 minutes with vitals WNL. Patient will verbalize adequate understanding of spinal precautions. Patient will transfer sit to stand with stand by assist - added 11/03 Patient will ambulate 150 feet with stand by assist and with appropriate AD - added 11/03 [employer] Team Member Goal(s): Patient to discharge to appropriate next level of inpatient care. INFORMED CONSENT TO TREATMENT: Plan of care including recommended therapy, goals and frequency, discussed with patient who understands and agrees to proceed. Equipment Issued: none Plan: Patient continues to benefit from skilled therapy services., Continue with goals as established. If patient is discharged from the facility, this note serves as a discharge summary if further physical therapy visits did not occur. Refer to filed flowsheet for further details. Following therapy session, patient left in patient bedside chair, with chair alarm on, with call light within reach, with RN, Fiordaliza aware, with therapy cues visible on white board. * Jamil Bernard MD - 11/05/2023 5:38 AM CDT Trauma Surgery Progress Note DATE: 11/05/2023 Patient Name: Promise Fierro : 1940 Admit Date: 11/01/2023 6:51 PM Hospital Day: Hospital Day: 4 History: Promise Fierro is 83 year old female with PMHx of HTN, DVT/PE on Eliquis, HLD that presented on 11/01/23 s/p GLF. She sustained scalp laceration/hematoma. She denies hx of prior falls in the last yearbut gets dizzy often with standing from her medications. She has chronic pain in her back and had hx of multiple epidural injections which helped initially but has taken [place] TID 10mg/325 mg due to no longer getting back injections. She has been in rehab before in [place], [place] when she had knee replacement surgery. Patient lives alone in a house with a paid caregiver. Son lives within 1 block. Patient has not been able to get out of her house recently due to decreasing mobility from back pain andleg swelling. Son states that if she goes to rehabilitation hospital, they would like her to go to [facility] in [facility]. Injuries: 2 cm laceration to posterior scalp - repaired in ED with 3-0 chromic gut suture Left rib 5-9 fractures Age indeterminate T5 vertebral body compression deformity PMHx: -GERD -HTN -PE/DVT -MDD -Chronic pain Interval History: 11/04: Pt reports pain is controlled. Pending rehab placement. Continuing to work on IS hourly. 11/03: Overnight pt required labetalol 10mg PRN once for elevated BP. Pt reports pain was slightly worsened overnight but is controlled this AM. 11/02: [place]. Patient states that her pain is well controlled on her current regimen. IS this am is 1000. 11/01: FELIX. Pt seen by pain medicine and taught how to use IS. Reports rib pain is controlled and most of her pain is in her back. 10/31: Pt arrived to ED. Objective: Diet: DIET REGULAR Input and Output: IO last 3 completed shifts In: 930 (8.2 mL/kg) [P.O.:930] Out: 400 (3.5 mL/kg) [Urine:400 (0.1 mL/kg/hr)] Net: 530 Weight: 113.4 kg Vital Signs: Temp: [97.3 ??F (36.3 ??C)-98.6 ??F (37 ??C)] Pulse: [55-65] Resp: [16-20] BP: (139-161)/(48-90) SpO2: [93 %-97 %] Physical Exam: Gen: Alert and oriented, NAD ENT: 2cm laceration on left posterior scalp, no drainage noted. Resp: unlabored breathing on RA CV: RRR, pulse 2+ Abd: Soft, nontender to palpation, nondistended, no rebound/guarding, non-peritoneal MSK: WWP, no c/c/e Neuro: Moving all extremities, no focal deficits Psych: Appropriate mood and affect Labs: Recent Labs Component Name 11/04/23 0156 11/03/23 0240 11/02/23 0711 WBC 6.2 5.7 7.6 HGB 11.7* 11.7* 12.3 HCT 32.7* 31.7* 34.4* PLTCOUNT 205 235 247 Recent Labs Component Name 11/04/23 0156 11/03/23 0240 11/02/23 0711 POTASSIUM 3.7 3.7 4.5 CO2 24 27 24 BUN 11 12 14 CREATININE 0.60 0.60 0.54* GLUCOSE 103 104 98 CALCIUM 8.8 8.7 9.0 Imaging: CT HEAD WO CONTRAST - Head Trauma, CSF leak, mental status changes Result Date: 11/01/2023 IMPRESSION: 1.No acute intracranial abnormality. 2.No acute maxillofacial fracture. 3.No acute fracture or traumatic malalignment of the cervical spine. 4.Age-indeterminate compression fracture deformities of the T5 and T6 vertebral bodies resulting in 30% height loss and associated with a thin sclerotic line through the superior endplates at these levels, which may represent zvjts-ku-qfflqaiy microtrabecular fractures. No evidence of retropulsion. Recommend correlation with point tenderness atthese levels to assess for acuity. 5.No acute [...] Elliott MD, PhD on 11/01/2023 10:[address] FACIAL BONES WO CONTRAST - Facial trauma, fx suspected, blunt Result Date: 11/01/2023 IMPRESSION: 1.No acute intracranial abnormality. 2.No acute maxillofacial fracture. 3.No acute fracture or traumatic malalignment of the cervical spine. 4.Age-indeterminate compression fracture deformities of the T5 and T6 vertebral bodies resulting in 30% height loss and associated with a thin sclerotic line through the superior endplates at these levels, which may represent hhzpb-nw-zxficlpx microtrabecular fractures. No evidence of retropulsion. Recommend correlation with point tenderness atthese levels to assess for acuity. 5.No acute [...] Elliott MD, PhD on 11/01/2023 10:[address] THORACIC SPINE WO CONTRAST - T/L-spine trauma, spine fracture Result Date: 11/01/2023 IMPRESSION: 1.No acute intracranial abnormality. 2.No acute maxillofacial fracture. 3.No acute fracture or traumatic malalignment of the cervical spine. 4.Age-indeterminate compression fracture deformities of the T5 and T6 vertebral bodies resulting in 30% height loss and associated with a thin sclerotic line through the superior endplates at these levels, which may represent pszos-pq-xzozqdij microtrabecular fractures. No evidence of retropulsion. Recommend correlation with point tenderness atthese levels to assess for acuity. 5.No acute [...] Elliott MD, PhD on 11/01/2023 10:[address] LUMBAR SPINE WO CONTRAST - T/L-spine trauma, Spine fracture Result Date: 11/01/2023 IMPRESSION: 1.No acute intracranial abnormality. 2.No acute maxillofacial fracture. 3.No acute fracture or traumatic malalignment of the cervical spine. 4.Age-indeterminate compression fracture deformities of the T5 and T6 vertebral bodies resulting in 30% height loss and associated with a thin sclerotic line through the superior endplates at these levels, which may represent ckumc-py-mllxbpfj microtrabecular fractures. No evidence of retropulsion. Recommend correlation with point tenderness atthese levels to assess for acuity. 5.No acute [...] Elliott MD, PhD on 11/01/2023 10:[address] CERVICAL SPINE WO CONTRAST Result Date: 11/01/2023 IMPRESSION: 1.No acute intracranial abnormality. 2.No acute maxillofacial fracture. 3.No acute fracture or traumatic malalignment of the cervical spine. 4.Age-indeterminate compression fracture deformities of the T5 and T6 vertebral bodies resulting in 30% height loss and associated with a thin sclerotic line through the superior endplates at these levels, which may represent ntvxw-di-pvylefvj microtrabecular fractures. No evidence of retropulsion. Recommend correlation with point tenderness atthese levels to assess for acuity. 5.No acute [...] Elliott MD, PhD on 11/01/2023 10:[address] CHEST ABDOMEN PELVIS W CONT - Abdomen-pelvis trauma, blunt or penetrating Result Date: 11/01/2023 Impression: 1.Age-indeterminate, likely chronic, compression deformity of T5 vertebral body with mild height loss. Refer to dedicated spine CT. 2.Otherwise, no acute chest, abdomen, or pelvis. > Dictated by Paxton Whitley DO (residential mental health worker). I, Milad Mcnulty MD have personally reviewed andinterpreted this examination/study. > Interpreting Provider: Milad Mcnulty MD on 11/01/2023 10:30 P M XR PELVIS 1 OR 2VW Result Date: 11/01/2023 IMPRESSION: Lucency to the right femoral neck may represent a fracture. This will be better characterized on CT chest abdomen pelvis. Report dictated by Sarah Keith Dr, MD (residential mental health worker). Loreto Jacques MD have personally reviewed and interpreted this examination/study. > Interpreting Provider: Loreto Bone MD on 11/01/2023 9:17 PM Assessment and Plan: Promise Fierro is a 83 year old female s/p GLF (on [employer]) here for treatment of injuries listedbelow: Injuries: -2 cm laceration to posterior scalp - repaired in ED with 3-0 chromic gut suture -Left rib 5-9 fractures -Age indeterminate T5 vertebral body compression deformit Incidental Findings: - 3ffa4vy thyroid nodule Neuro: acute traumatic pain Thoracic vertebra fracture Anxiety Insomnia MDD - Does not require further inpatient neurosurgery care. Exam and imaging have remained stable. Theyrecommend: - Activity as tolerated in brace - Can resume anticoagulation as necessary - Follow up with Dr. Gutiérrez or Latrice Barakat outpatient in 6-8 weeks with thoracic upright XR for imaging - continue multimodal analgesia regimen - Geriatric medicine recommends Melatonin 6 mg at hs - On home paroxetine 20 mg - Continue home [place] regimen with PRN oxy I HEENT: Posterior scalp laceration Allergies - Laceration repaired in the ED with 3-0 chromic gut - Pt states that she usually takes Zyrtec for her allergies, however she currently isn't having anysymptoms. She was instructed that if she starts having symptoms she can ask for Zyrtec Respiratory: Left rib 5-9 fractures (acute on chronic_ - encourage IS (1000 today), pulmonary hygiene, OOBAT - Respiratory consult - duonebs PRN Cardiovascular: Hypertension LE edema - Geriatric medicine recommends 100 mg metoprolol and Losartan 100 mg (pt regularly take irbesartan, but it's not on formulary) - Holding lasix at this time per Geriatric Medicine - Monitor VS q4 GI/FEN: GERD - Diet: Regular - SUP: n/a - BM: (11/03) - Bowel regimen (Senna, Miralax) -On home famotidine and pantoprazole Endocrine: Hypothyroidism with 2x2cm thyroid nodule - Started home levothyroxine 75 mcg - Will need to see endocrine as outpatient for thyroid nodule Renal: - CrCl Serum creatinine: 0.6 mg/dL 11/03/23 0240 Estimated creatinine clearance: 86.1 mL/min , UOP adequate - voiding via purewick - intake and output every 6 hours -replete electrolytes as needed to maintain K >4, Mag >2, Phos >3 - BMP daily Heme: Acute blood loss anemia - Daily CBCs Transfuse Hgb <7, platelets <50 ID: - ALDIAR Muscloskeletal: Thoracic vertebra fractures -see neuro recommendations above SKIN: Scalp laceration - daily wound care per nursing Diet: Regular Activity: AAT Ppx: SCDs and Lovenox LDAs: PIV PT/OT recommending rehab for impaired ability to complete ADLs and low functional mobility at baseline. Pt requires further rehab for acute on chronic rib fractures as well as thoracic compression fracture exacerbated by recent fall. Pt is requiring pain medication treatment for rib fractures and thoracic compression fractures. NSGY recommending patient continue to wear spinal brace until follow up appointment in 6-8 weeks. Patient staffed and discussed with in-house chief Dr. Goode and will be staffed with attending, Dr. Bernard. Note to be updated with any changes. Lenore Abbasi DO Trauma Resident, PGY-1 11/05/23 5:38 AM I have seen and examined the patient with the resident and I agree with the findings and plan of care as documented by the resident. Date of Service: 11/05/2023 Jamil Bernard MD * Gillian Manzo RN - 11/05/2023 3:48 AM CDT Problem: Pain/Discomfort Goal: Patient exhibits reduced pain/discomfort as evidenced by pain scores Outcome: Progressing Goal: Patient uses pharmacological and non-pharmacological pain management strategies. Outcome: Progressing Goal: Patient verbalizes acceptable level of pain relief and ability to engage in desired activity. Outcome: Progressing Problem: Fall Risk Goal: Fall risk and fall related injury risk are minimized (interventions related to the fall risk can be found in the flowsheet documentation) Outcome: Progressing Problem: Balance Goal: LTG - Patient will demonstrate Intervention to enhance balance for safe completion of daily activities Outcome: Progressing * Wisam Pinedo, PERINATAL TECHNICIAN-TC OPERATOR - 11/04/2023 12:57 PM CDT GERIATRIC MEDICINE FOLLOW UP NOTE 11/04/2023 12:58 PM Reason for Consult: Fall Consulting Physician and Team: Trauma Acute Events: Up in chair today with therapy Brace on BP's better today. Started on amlodipine 5mg today Subjective: Bowels moved last night Breathing okay Reports back and chest wall pain improving Comprehensive Geriatric Assessment: CONFUSION ASSESSMENT METHOD 1) Acute onset or fluctuating course: No 2) Inattention: No 3) Disorganized thinking: No 4) Altered Level of Consciousness: No Level of Consciousness: Alert Delirium is suggested if criteria #1 & #2 are positive PLUS criteria #3 OR #4 Is deliirum suggested: No Current Meds: 0.9% NaCl 3 mL Intracatheter q8h 0.9% NaCl 3 mL Intracatheter q8h amLODIPine 5 mg Oral QDAY apixaban 5 mg Oral BID atorvastatin 40 mg Oral QDAY bacitracin Topical TID famotidine 20 mg Oral BID HYDROcodone-acetaminophen 1 tablet Oral TID latanoprost 1 drop Each Eye AT BEDTIME levothyroxine 75 mcg Oral QDAY AT 0600 lidocaine 2 patch Transdermal q24h losartan 100 mg Oral QDAY melatonin 3 mg Oral AT BEDTIME metoprolol succinate XL 24hr 100 mg Oral QDAY nystatin Topical BID PARoxetine 20 mg Oral QDAY polyethylene glycol 3350 17 g Oral QDAY senna 8.6 mg Oral QDAY OBJECTIVE Vitals: Patient Vitals for the past 6 hrs: Temp Pulse Resp BP BP Method 11/04/23 1238 98.5 ??F (36.9 ??C) 55 17 150/69 Automatic 11/04/23 1205 -- 62 16 -- -- 11/04/23 0851 -- 64 16 -- -- 11/04/23 0843 98 ??F (36.7 ??C) 60 16 161/90 Automatic Intake/Output Summary (Last 24 hours) at 11/04/2023 1258 Last data filed at 11/04/2023 1007 Gross per 24 hour Intake 730 ml Output 400 ml Net 330 ml Weight: Wt Readings from Last 2 Encounters: 11/03/23 113.4 kg (250 lb) Physical Exam: General: NAD, alert pleasant HEENT: EOMI. PERRL Neck: Cervical collar Pulm: CTA-B. No WRR Cardio: RRR, S1S2 normal. No MRG Abdomen: Soft, NT, ND. BS x 4 normoactive Extremity: No edema Neuro: A & O x 3. Non focal Skin: Warm and dry Labs: CBC: Recent Labs Component Name 11/04/2315511/03/23 0240 11/02/23 0711 WBC 6.2 5.7 7.6 HGB 11.7* 11.7* 12.3 BMP: Recent Labs Component Name 11/04/2315511/03/23 0240 11/02/23 0711 NA 140 142 141 CL 108* 108* 108* CO2 24 27 24 BUN 11 12 14 CREATININE 0.60 0.60 0.54* Recent Labs Component Name 11/04/2315511/03/23 0240 11/02/23 0711 CALCIUM 8.8 8.7 9.0 PHOS 3.2 3.0 3.0 LFT: No results for input(s): PROT , ALB , ALKPHOS , AST , ALT in the last 00013 hours. Coagulation: Recent Labs Component Name 11/01/231955 PT 15.5* INR 1.3 Imaging: CT HEAD WO CONTRAST - Head Trauma, CSF leak, mental status changes Result Date: 11/01/2023 IMPRESSION: 1.No acute intracranial abnormality. 2.No acute maxillofacial fracture. 3.No acute fracture or traumatic malalignment of the cervical spine. 4.Age-indeterminate compression fracture deformities of the T5 and T6 vertebral bodies resulting in 30% height loss and associated with a thin sclerotic line through the superior endplates at these levels, which may represent nmwcm-pf-vadhmeja microtrabecular fractures. No evidence of retropulsion. Recommend correlation with point tenderness atthese levels to assess for acuity. 5.No acute [...] Elliott MD, PhD on 11/01/2023 10:[address] FACIAL BONES WO CONTRAST - Facial trauma, fx suspected, blunt Result Date: 11/01/2023 IMPRESSION: 1.No acute intracranial abnormality. 2.No acute maxillofacial fracture. 3.No acute fracture or traumatic malalignment of the cervical spine. 4.Age-indeterminate compression fracture deformities of the T5 and T6 vertebral bodies resulting in 30% height loss and associated with a thin sclerotic line through the superior endplates at these levels, which may represent fiujm-ee-dvlqpoyq microtrabecular fractures. No evidence of retropulsion. Recommend correlation with point tenderness atthese levels to assess for acuity. 5.No acute [...] Elliott MD, PhD on 11/01/2023 10:[address] THORACIC SPINE WO CONTRAST - T/L-spine trauma, spine fracture Result Date: 11/01/2023 IMPRESSION: 1.No acute intracranial abnormality. 2.No acute maxillofacial fracture. 3.No acute fracture or traumatic malalignment of the cervical spine. 4.Age-indeterminate compression fracture deformities of the T5 and T6 vertebral bodies resulting in 30% height loss and associated with a thin sclerotic line through the superior endplates at these levels, which may represent tnvdf-gb-uelfafza microtrabecular fractures. No evidence of retropulsion. Recommend correlation with point tenderness atthese levels to assess for acuity. 5.No acute [...] Elliott MD, PhD on 11/01/2023 10:[address] LUMBAR SPINE WO CONTRAST - T/L-spine trauma, Spine fracture Result Date: 11/01/2023 IMPRESSION: 1.No acute intracranial abnormality. 2.No acute maxillofacial fracture. 3.No acute fracture or traumatic malalignment of the cervical spine. 4.Age-indeterminate compression fracture deformities of the T5 and T6 vertebral bodies resulting in 30% height loss and associated with a thin sclerotic line through the superior endplates at these levels, which may represent zvarn-vx-bbmupaiz microtrabecular fractures. No evidence of retropulsion. Recommend correlation with point tenderness atthese levels to assess for acuity. 5.No acute [...] Elliott MD, PhD on 11/01/2023 10:[address] CERVICAL SPINE WO CONTRAST Result Date: 11/01/2023 IMPRESSION: 1.No acute intracranial abnormality. 2.No acute maxillofacial fracture. 3.No acute fracture or traumatic malalignment of the cervical spine. 4.Age-indeterminate compression fracture deformities of the T5 and T6 vertebral bodies resulting in 30% height loss and associated with a thin sclerotic line through the superior endplates at these levels, which may represent hwdue-bn-zghgqdpw microtrabecular fractures. No evidence of retropulsion. Recommend correlation with point tenderness atthese levels to assess for acuity. 5.No acute [...] Elliott MD, PhD on 11/01/2023 10:[address] CHEST ABDOMEN PELVIS W CONT - Abdomen-pelvis trauma, blunt or penetrating Result Date: 11/01/2023 Impression: 1.Age-indeterminate, likely chronic, compression deformity of T5 vertebral body with mild height loss. Refer to dedicated spine CT. 2.Otherwise, no acute chest, abdomen, or pelvis. > Dictated by Paxton Whitley DO (residential mental health worker). IMilad MD have personally reviewed andinterpreted this examination/study. > Interpreting Provider: Milad Mcnulty MD on 11/01/2023 10:30 P M XR PELVIS 1 OR 2VW Result Date: 11/01/2023 IMPRESSION: Lucency to the right femoral neck may represent a fracture. This will be better characterized on CT chest abdomen pelvis. Report dictated by Sarah Keith Dr, MD (residential mental health worker). Loreto Jacques MD have personally reviewed and interpreted this examination/study. > Interpreting Provider: Loreto Bone MD on 11/01/2023 9:17 PM ASSESSMENT & RECOMMENDATIONS Fall with polytrauma -Reports her walker slipped causing her to fall. -PT/OT -Up in chair for meals -Vitamin D2,000 units daily -Outpatient DEXA scan with PCP -Scheduled tylenol 1 gm q 8 hrs -Lidoderm patch -PRN oxycodone 5mg q 6 hrs -SW for dispo planning. PT recommending rehab HTN -BP's better today ~150 systolic. Currently on metoprolol 100mg and losartan 100mg daily. Started amlodipine 5mg on 11/03 -IF BP's consistently >160 would recommend to start amlodipine 5mg daily Constipation-resolved -Bowels moved overnight -Continue daily senna and miralax #Risk of delirium -Not delirious this morning. At risk given fall, fractures, pain, limited mobility, constipation, disturbed sleep/wake cycle -Agree with stopping flexeril as it is highly deliriogenic in the elderly Delirium Recommendations: Delirium is a morbid condition, associated with mortality. It's preventable. - daily CAM assessment - minimize tethers (eg re-assess need for Fernandez daily) - Miralax for prevention of constipation if on opioids - early mobilization - Avoid sedative hypnotics/anticholniergics. Avoid narcotics - Ensure adequate pain control. - Address sensory deficits. Vision and hearing - Provide orienting stimuli: Clock, calendar, minimal staff changes, light during the day, dark at night - please place the following orders in a nursing communication: up in chair with meals TID if activity orders allow blinds up and lights on in the AM. daily family visits Minimize nocturnal disturbances. Avoid unnecessary labs, VS, medications at night. Promote regular sleep/wake cycle Optimize nutritional status. Ensure supplements TID between meals if needed Monitor electrolytes QD, Replace K<4, Mg<2, Phos<3 Reviewed labs and VS Thank you for this consult. Please call with questions. Geriatrics will continue to follow along with you. I have spent total 25 minutes caring for this patient, reviewing available labs, medications, coordinating care with staff. Patient discussed with attending, Dr. Ira Pinedo, ANP-, Geriatrics 11/04/2023 12:58 PM Pager: [phone] * Mireya Dennis RN - 11/04/2023 12:26 PM CDT Problem: Pain/Discomfort Goal: Patient exhibits reduced pain/discomfort as evidenced by pain scores Outcome: Progressing Goal: Patient uses pharmacological and non-pharmacological pain management strategies. Outcome: Progressing Goal: Patient verbalizes acceptable level of pain relief and ability to engage in desired activity. Outcome: Progressing Problem: Fall Risk Goal: Fall risk and fall related injury risk are minimized (interventions related to the fall risk can be found in the flowsheet documentation) Outcome: Progressing Problem: Balance Goal: LTG - Patient will demonstrate Intervention to enhance balance for safe completion of daily activities Outcome: Progressing * Jose M Carranza MSW - 11/04/2023 12:16 PM CDT Care Coordination Progress Note Anticipated level of care at discharge: Acute Rehab Facility: Anticipated level of care provider: None: Anticipated Discharge Date: 11/04/23: Discharge Plan: WALTER spoke with patients son Harlan Fierro he reports he has [facility] and [facility] for beds available. WALTER agreed to send over the referral for rhab for both facilities. Continued Care and Services - Admitted Since 11/01/2023 Destination Service Provider Request Status Selected Services Address Phone Fax Patient Preferred [facility] - ACUTE REHAB Pending - Request Sent N/A [phone] [facility] [phone] -- [facility] Pending - Request Sent N/A [id number] [facility] [phone] -- UPDATE: WALTER spoke with Daphney from [facility] ([phone]) and she said the patient has been accepted into their rehab. A bed should be available 11/05/23. Orientation Level: Oriented X4: Family Support (Name and Phone): Extended Emergency Contact Information Primary Emergency Contact: harlan fierro Mobile Relation: Son Middleware Architect needed? No Transportation at Discharge: Family: READMISSION RISK SCORE is 14 at 12:16 PM 11/04/2023.: Name: TRICIA Conde * DaoDenilson, PT - 11/04/2023 10:05 AM CDT [facility] Physical Medicine and Rehabilitation Physical Therapy Progress Note Patient: Promise Fierro Med Record Number: [id number] Date of : 1940 Age: [age] year old PPE worn by staff: gloves PPE worn by patient: gown - patient, clean;socks - clean Tech: no Recommendations: Discharge PT Discharge Recommendations: Patient would benefit from intensive 3-hour multidisciplinary therapy This recommendation is made due to ongoing intensive PT functional needs: ability to actively participate in intensive therapy 3 hours/day, 5 days a week;patient has the need for more than one skilled therapy service;motivated to participate in therapy;not at baseline due to impaired ability to complete ADL's;functional mobility is significantly below baseline SUBJECTIVE: Subjective: Agreeable, motivated for therapy Pain Assessment: Pain Location #1 Pain Scale/Observation: Numeric (0-10) Pain Rating Score #1: 8 Sedation Level #1: 1-Awake and alert Pain Location : (Ribs) Pain Intervention(s): Declined Intervention PRECAUTIONS: Weight Bearing Status: (no restrictions noted) Activity Level: Activity as Tolerated Spine Precautions: Yes Spine Precautions: (UNIT MANAGER CON[employer] STORES Jacob Olsen) OBJECTIVE: At start of therapy session, patient found in patient bedside chair and with chair alarm on General Appearance: NAD; UN[employer]GER [employer]ES donned LDAs: IV's: Peripheral line Vitals: (*Assess the 3 levels of oxygen saturations both for room air and 02 unless rest on room air is 88% or less). BP measured on R forearm per pt request Rest BP: 146/50 HR: 65 Sp02 Sp02 Room Air L O2 Post Gait Post Exercise BP: 171/58 161/63 HR: 67 68 Sp02 Sp02 L O2 Room Air Observations: Report of dizziness during ambulation, resolved when returned back to sitting, RN aware Mental Status/Cognition: Level of Consciousness-Adult: Alert Orientation Level: Oriented X4 Cognition: Follows one step commands;Safety awareness-decreased Mobility: A gait belt and non-slip socks were used for all out of bed activity this date. Bed Mobility: Supine to Sit: Activity Does Not Occur (starts and ends in bedside chair) Sit to Supine: Activity Does Not Occur Transfers: Sit to Stand: Minimal Assistance;Requires Verbal Cues for Technique Stand to Sit: Minimal Assistance;Requires Verbal Cues for Technique Type of Transfer: (ambulatory) Transfer Device: Gait belt;Walker-2 Wheeled Gait: Weight Bearing Status: (no restrictions noted) Distance Ambulated (ft): 80 FEET (one standing rest break) Ambulation: Assistive Device: Gait Belt;Walker-2 Wheeled Ambulation: Level of Assistance: Minimum Assistance;Requires Verbal Cues for Technique;Requires Verbal Cues for Safety;Stand By Assist (SBA progressing to Nixon with further distance 2/2 fatigue) Ambulation: Gait Deviations: Knee Stability - Decreased during stance phase;Ria - Decreased;Increased Trunk Flexion;Step Length - Decreased (cueing for upright trunk) Balance: Balance Scales/Tests Used: Sitting: Static/Dynamic;Standing: Static/Dynamic Sitting - Static: Good - Sitting - Dynamic: Fair + Standing - Static: Fair;With Both Upper Extremity's Support Standing - Dynamic: Fair -;With Both Upper Extremity's Support ACTIVITY TOLERANCE: Patient's activity tolerance: fair plus TREATMENT/INTERVENTIONS: ROM, strengthening exercises, transfer training, gait training, balance activities, and monitoring of vitals BLE AROM exercises in sitting, x10-15 reps - hip abduction - hip adduction against pillow, 3 sec hold - hip flexion - long arc quads - ankle PF/DF AM-PAC 6 Clicks Mobility Raw Score:: 17 EDUCATION: While performing PT, Patient was instructed in:functional mobility training, safety awareness/fall precautions , discharge planning, use of call light Presented to patient who demonstrates Good understanding of instructions given. ASSESSMENT: Patient would benefit from additional Physical Therapy sessions to achieve the following functionalgoals to enhance independence. Short Term Goals: Goal Formation With patient Patient will perform bed mobility with stand by assist and while maintaining back safety precautions Patient will tolerate standing for further mobility assessment. - met Patient will tolerate edge of bed >5 minutes with vitals WNL. Patient will verbalize adequate understanding of spinal precautions. Patient will transfer sit to stand with stand by assist - added 11/03 Patient will ambulate 150 feet with stand by assist and with appropriate AD - added 11/03 [employer] Team Member Goal(s): Patient to discharge to appropriate next level of inpatient care. INFORMED CONSENT TO TREATMENT: Plan of care including recommended therapy, goals and frequency, discussed with patient who understands and agrees to proceed. Equipment Issued: none Plan: Patient continues to benefit from skilled therapy services., Continue with goals as established., Goals updated this date. If patient is discharged from the facility, this note serves as a discharge summary if further physical therapy visits did not occur. Refer to filed flowsheet for further details. Following therapy session, patient left in patient bedside chair, with chair alarm on, with call light within reach, with RNMireya aware, with therapy cues visible on white board. * Tiffany Lynn RN - 11/04/2023 9:51 AM CDT Care Coordination Progress Note Anticipated level of care at discharge: Unknown: Anticipated level of care provider: None: Anticipated Discharge Date: 11/04/23: Discharge Plan: SW working on ARU referral for dc placement. This greeting card writer reached out to SW via [employer] to updated. Orientation Level: Oriented X4: Family Support (Name and Phone): Extended Emergency Contact Information Primary Emergency Contact: harlan fierro Mobile Relation: Son Middleware Architect needed? No Transportation at Discharge: : EMS READMISSION RISK SCORE is 14 at 9:51 AM 11/04/2023.: Tiffany Lynn RN, BSN Physical Scientist [phone] * Amrita Torres OT - 11/04/2023 8:41 AM CDT [facility] Physical Medicine and Rehabilitation Occupational Therapy Progress Note Patient: Promise Fierro Med Record Number: [id number] Date of : 1940 Age: [age] year old PPE worn by staff: gloves;mask - procedural Recommendations: Discharge OT Discharge Recommendations: Patient would benefit from intensive 3-hour multidisciplinary therapy This recommendation is made due to ongoing intensive OT functional needs: ability to actively participate in intensive therapy 3 hours/day, 5 days a week;motivated to participate in therapy;likely toreturn to the community at discharge with support system;patient has the ability to progress and dem onstrate measurable gains as a result of skilled therapy Nurse contacted regarding patient status and/or discharge plan. Activity Level: as tolerated PRECAUTIONS: Spine Precautions: No bending,lifting, no twisting (AAT in UNIT MANAGER [employer]ORES brace) SUBJECTIVE: Subjective: I'd love to get up. Pain Assessment: Pain Location #1 Pain Scale/Observation: Numeric (0-10) Pain Rating Score #1: 8 Sedation Level #1: 1-Awake and alert Pain Location : Head Pain Intervention(s): Declined Intervention OBJECTIVE: At start of therapy session, patient found in bed and with bed alarm on General Appearance: supine in NAD with UNIT MANAGER [employer] brace in place LDA: IV's: Peripheral line and external female catheter Vitals: (*Assess the 3 levels of oxygen saturations both for room air and 02 unless rest on room air is 88% or less). Rest BP: 161/60 (90) HR: 61 Sp02 Sp02 Room Air L O2 Observations: Min c/o dizziness with change in position. Attempted to take BP seated in chair but patient refuses 2/2 cuff too tight. RN issued BP medication at start of treatment. Mental Status/Cognition: Level of Consciousness-Adult: Alert Orientation Level: Oriented X4 Cognition: Follows one step commands;Safety awareness-decreased Following Commands: Follows one step commands with repetition/cues (2/2 [place]) Safety Judgement: Decreased awareness of need for safety Awareness of Errors: Decreased awareness of deficits Mobility: a gait belt and non-slip socks were used for all out of bed activity this date. Bed Mobility: Supine to Sit: Minimal Assistance;Requires Verbal Cues for Technique with HOB in high fowlers position Transfers: Sit to Stand: Minimal Assistance;Requires Verbal Cues for Safety;Requires Verbal Cues for Technique Stand to Sit: Minimal Assistance;Requires Verbal Cues for Safety;Requires Verbal Cues for Technique Toilet Transfers: Minimal Assistance (on/off toilet seat with use of grab bars) Transfer Device: Gait belt;Walker-2 Wheeled Functional Ambulation: Patient ambulated to/from bathroom with min assist using w/w. Cues for w/w safety. Balance: Sitting - Static: Fair + Sitting - Dynamic: Fair Standing - Static: Fair;With Both Upper Extremity's Support Standing - Dynamic: Fair;Fair -;With Both Upper Extremity's Support Activities of Daily Living: Oral Facial Hygiene: Stand By Assist (hand hygiene seated in chair) Lower Body Dressing: Maximal Assistance (don socks EOB) Toileting: Minimal Assistance (clothing management and pericare) ACTIVITY TOLERANCE: Patient's activity tolerance: fair. AM-PAC 6 Clicks Daily Activity Raw Score:: 16 TREATMENT/INTERVENTIONS: ADL training Functional transfer training Endurance training Bed mobility Safety awareness EDUCATION: While performing OT, Patient was instructed in:functional mobility training, self-care training, safety awareness/fall precautions , spine precautions , discharge planning, use of call light Presented to patient who demonstrates Fair understanding of instructions given. INFORMED CONSENT TO TREATMENT: Plan of care including recommended therapy, goals and frequency, discussed with patient who understands and agrees to proceed. ASSESSMENT: Patient continues to benefit from skilled Occupational Therapy to achieve the following functional goals. Short Term Goals: Goal Formation With patient Patient will perform lower extremity dressing with stand by assist Patient will perform supine to/from sit with stand by assist Patient will demonstrate good understanding of spine precautions [employer] Team Member Goal(s): Patient to discharge to appropriate next level of inpatient care. Plan: Patient continues to benefit from skilled therapy services., Continue with goals as established. If patient is discharged from the facility, this note serves as a discharge summary if further occupational therapy visits did not occur. Refer to filed flowsheet for further details. Following therapy session, patient left in patient bedside chair, with waffle seat cushion in place, with chair alarm on, with call light within reach, with RNMireya aware, with therapy cues visibleon white board. * Jamil Bernard MD - 11/04/2023 5:24 AM CDT Trauma Surgery Progress Note DATE: 11/04/2023 Patient Name: Promise Fierro : 1940 Admit Date: 11/01/2023 6:51 PM Hospital Day: Hospital Day: 3 History: Promise Fierro is 83 year old female with PMHx of HTN, DVT/PE on Eliquis, HLD that presented on 11/01/23 s/p GLF. She sustained scalp laceration/hematoma. She denies hx of prior falls in the last yearbut gets dizzy often with standing from her medications. She has chronic pain in her back and had hx of multiple epidural injections which helped initially but has taken [place] TID 10mg/325 mg due to no longer getting back injections. She has been in rehab before in [place], [place] when she had knee replacement surgery. Patient lives alone in a house with a paid caregiver. Son lives within 1 block. Patient has not been able to get out of her house recently due to decreasing mobility from back pain andleg swelling. Son states that if she goes to rehabilitation hospital, they would like her to go to [place] [facility]. Injuries: 2 cm laceration to posterior scalp - repaired in ED with 3-0 chromic gut suture Left rib 5-9 fractures Age indeterminate T5 vertebral body compression deformity PMHx: -GERD -HTN -PE/DVT -MDD -Chronic pain Interval History: 11/03: Overnight pt required labetalol 10mg PRN once for elevated BP. Pt reports pain was slightly worsened overnight but is controlled this AM. 11/02: [place]. Patient states that her pain is well controlled on her current regimen. IS this am is 1000. 11/01: FELIX. Pt seen by pain medicine and taught how to use IS. Reports rib pain is controlled and most of her pain is in her back. 10/31: Pt arrived to ED. Objective: Diet: DIET REGULAR Input and Output: IO last 3 completed shifts In: 780 (6.9 mL/kg) [P.O.:780] Out: 650 (5.7 mL/kg) [Urine:650 (0.2 mL/kg/hr)] Net: 130 Weight: 113.4 kg Vital Signs: Temp: [97.4 ??F (36.3 ??C)-98.8 ??F (37.1 ??C)] Pulse: [58-70] Resp: [16-19] BP: (144-194)/(53-74) SpO2: [93 %-99 %] Physical Exam: Gen: Alert and oriented, NAD ENT: 2cm laceration on left posterior scalp, no drainage noted. Resp: unlabored breathing on RA CV: RRR, pulse 2+ Abd: Soft, nontender to palpation, nondistended, no rebound/guarding, non-peritoneal MSK: WWP, no c/c/e Neuro: Moving all extremities, no focal deficits Psych: Appropriate mood and affect Labs: Recent Labs Component Name 11/04/23 0156 11/03/23 0240 11/02/23 0711 WBC 6.2 5.7 7.6 HGB 11.7* 11.7* 12.3 HCT 32.7* 31.7* 34.4* PLTCOUNT 205 235 247 Recent Labs Component Name 11/04/23 0156 11/03/23 0240 11/02/23 0711 POTASSIUM 3.7 3.7 4.5 CO2 24 27 24 BUN 11 12 14 CREATININE 0.60 0.60 0.54* GLUCOSE 103 104 98 CALCIUM 8.8 8.7 9.0 Imaging: CT HEAD WO CONTRAST - Head Trauma, CSF leak, mental status changes Result Date: 11/01/2023 IMPRESSION: 1.No acute intracranial abnormality. 2.No acute maxillofacial fracture. 3.No acute fracture or traumatic malalignment of the cervical spine. 4.Age-indeterminate compression fracture deformities of the T5 and T6 vertebral bodies resulting in 30% height loss and associated with a thin sclerotic line through the superior endplates at these levels, which may represent sbimb-fn-bhqsicyw microtrabecular fractures. No evidence of retropulsion. Recommend correlation with point tenderness atthese levels to assess for acuity. 5.No acute [...] Elliott MD, PhD on 11/01/2023 10:[address] FACIAL BONES WO CONTRAST - Facial trauma, fx suspected, blunt Result Date: 11/01/2023 IMPRESSION: 1.No acute intracranial abnormality. 2.No acute maxillofacial fracture. 3.No acute fracture or traumatic malalignment of the cervical spine. 4.Age-indeterminate compression fracture deformities of the T5 and T6 vertebral bodies resulting in 30% height loss and associated with a thin sclerotic line through the superior endplates at these levels, which may represent flhzw-cg-nklgpadx microtrabecular fractures. No evidence of retropulsion. Recommend correlation with point tenderness atthese levels to assess for acuity. 5.No acute [...] Elliott MD, PhD on 11/01/2023 10:[address] THORACIC SPINE WO CONTRAST - T/L-spine trauma, spine fracture Result Date: 11/01/2023 IMPRESSION: 1.No acute intracranial abnormality. 2.No acute maxillofacial fracture. 3.No acute fracture or traumatic malalignment of the cervical spine. 4.Age-indeterminate compression fracture deformities of the T5 and T6 vertebral bodies resulting in 30% height loss and associated with a thin sclerotic line through the superior endplates at these levels, which may represent zyvdu-tm-ozwzzlvd microtrabecular fractures. No evidence of retropulsion. Recommend correlation with point tenderness atthese levels to assess for acuity. 5.No acute [...] Elliott MD, PhD on 11/01/2023 10:[address] LUMBAR SPINE WO CONTRAST - T/L-spine trauma, Spine fracture Result Date: 11/01/2023 IMPRESSION: 1.No acute intracranial abnormality. 2.No acute maxillofacial fracture. 3.No acute fracture or traumatic malalignment of the cervical spine. 4.Age-indeterminate compression fracture deformities of the T5 and T6 vertebral bodies resulting in 30% height loss and associated with a thin sclerotic line through the superior endplates at these levels, which may represent tsjiu-gc-nkyehqsh microtrabecular fractures. No evidence of retropulsion. Recommend correlation with point tenderness atthese levels to assess for acuity. 5.No acute [...] Elliott MD, PhD on 11/01/2023 10:[address] CERVICAL SPINE WO CONTRAST Result Date: 11/01/2023 IMPRESSION: 1.No acute intracranial abnormality. 2.No acute maxillofacial fracture. 3.No acute fracture or traumatic malalignment of the cervical spine. 4.Age-indeterminate compression fracture deformities of the T5 and T6 vertebral bodies resulting in 30% height loss and associated with a thin sclerotic line through the superior endplates at these levels, which may represent ettui-ez-oryvujsc microtrabecular fractures. No evidence of retropulsion. Recommend correlation with point tenderness atthese levels to assess for acuity. 5.No acute [...] Elliott MD, PhD on 11/01/2023 10:[address] CHEST ABDOMEN PELVIS W CONT - Abdomen-pelvis trauma, blunt or penetrating Result Date: 11/01/2023 Impression: 1.Age-indeterminate, likely chronic, compression deformity of T5 vertebral body with mild height loss. Refer to dedicated spine CT. 2.Otherwise, no acute chest, abdomen, or pelvis. > Dictated by Paxton Whitley DO (residential mental health worker). I, Milad Mcnulty MD have personally reviewed andinterpreted this examination/study. > Interpreting Provider: Milad Mcnulty MD on 11/01/2023 10:30 P M XR PELVIS 1 OR 2VW Result Date: 11/01/2023 IMPRESSION: Lucency to the right femoral neck may represent a fracture. This will be better characterized on CT chest abdomen pelvis. Report dictated by Sarah Keith Dr, MD (residential mental health worker). I, Loreto Bone MD have personally reviewed and interpreted this examination/study. > Interpreting Provider: Loreto Bone MD on 11/01/2023 9:17 PM Assessment and Plan: Promise Fierro is a 83 year old female s/p GLF (on Eliquis) here for treatment of injuries listedbelow: Injuries: -2 cm laceration to posterior scalp - repaired in ED with 3-0 chromic gut suture -Left rib 5-9 fractures -Age indeterminate T5 vertebral body compression deformit Incidental Findings: - 3zmb8yp thyroid nodule Neuro: acute posttraumatic pain Thoracic vertebra fracture Anxiety Insomnia MDD - Does not require further inpatient neurosurgery care. Exam and imaging have remained stable. Theyrecommend: - Activity as tolerated in brace - Can resume anticoagulation as necessary - Follow up with Dr. Gutiérrez or Latrice Barakat outpatient in 6-8 weeks with thoracic upright XR for imaging - continue multimodal analgesia regimen - Geriatric medicine recommends Melatonin 6 mg at hs - On home paroxetine 20 mg -Restarted home [place] regimen with PRN oxy I HEENT: Posterior scalp laceration Allergies - Laceration repaired in the ED with 3-0 chromic gut - Pt states that she usually takes Zyrtec for her allergies, however she currently isn't having anysymptoms. She was instructed that if she starts having symptoms she can ask for Zyrtec Respiratory: Left rib 5-9 fractures - encourage IS (1000 today), pulmonary hygiene, OOBAT - Respiratory consult - duonebs PRN Cardiovascular: Hypertension LE edema - Geriatric medicine recommends 100 mg metoprolol and Losartan 100 mg (pt regularly take irbesartan, but it's not on formulary) - Holding lasix at this time per Geriatric Medicine - Monitor VS q4 GI/FEN: GERD - Diet: Regular - SUP: n/a - BM: yesterday (11/01) - Bowel regimen (Senna, Miralax) -On home famotidine and pantoprazole Endocrine: Hypothyroidism with 2x2cm thyroid nodule - Started home levothyroxine 75 mcg - Will need to see endocrine as outpatient for thyroid nodule Renal: - CrCl Serum creatinine: 0.6 mg/dL 11/03/23 0240 Estimated creatinine clearance: 86.1 mL/min , UOP adequate - voiding via purewick - intake and output every 6 hours -replete electrolytes as needed to maintain K >4, Mag >2, Phos >3 - BMP daily Heme: - Daily CBCs Transfuse Hgb <7, platelets <50 ID: - ALDAIR Muscloskeletal: Thoracic vertebra fractures -see neuro recommendations above SKIN: Scalp laceration - daily wound care per nursing Diet: Regular Activity: AAT Ppx: SCDs and Lovenox LDAs: PIV Barriers to dispo: Pt requires PT/OT recommendations (recommendations not final yesterday due to elevated BP when PT/OT came to evaluate patient) Patient staffed and discussed with in-house chief Dr. Goode and will be staffed with attending, Dr. Bernard. Note to be updated with any changes. Lenore Abbasi DO Trauma Resident, PGY-1 11/04/23 5:25 AM I have seen and examined the patient with the resident and I agree with the findings and plan of care as documented by the resident. Date of Service: 11/04/2023 Patient with decreased mobility and ADLs will likely need rehab placement. Improving respiratory toilet. We have added amlodipine per geriatrics recommendations for her hypertension Jamil Bernard MD 11/04/2023 12:07 PM * Gillian Manzo RN - 11/04/2023 4:10 AM CDT Problem: Pain/Discomfort Goal: Patient exhibits reduced pain/discomfort as evidenced by pain scores Outcome: Progressing Goal: Patient uses pharmacological and non-pharmacological pain management strategies. Outcome: Progressing Goal: Patient verbalizes acceptable level of pain relief and ability to engage in desired activity. Outcome: Progressing Problem: Fall Risk Goal: Fall risk and fall related injury risk are minimized (interventions related to the fall risk can be found in the flowsheet documentation) Outcome: Progressing Problem: Balance Goal: LTG - Patient will demonstrate Intervention to enhance balance for safe completion of daily activities Outcome: Progressing * Tonie King PA-C - 11/03/2023 4:12 PM CDT TRAUMA SURGERY SERVICES - Tertiary Survey Progress Note Time: 4:12 PM Physical Exam HEENT [place] Coma Scale: 15 Scalp: Laceration Face: No injury noted Eyes: No injury noted Ears: No injury noted Nose: No injury noted Mouth: No injury noted Neck: Tenderness Comments: Thorax No injury noted Abdomen No injury noted Pelvis/ Perineum Rectal Pelvis/Perineum No injury noted Back Cervical tenderness Extremities LUE: No injury noted RUE: No injury noted LLE: No injury noted RLE: No injury noted Neuro- vascular Pulses Right Left Carotid 2+ Normal 2+ Normal Radial 2+ Normal 2+ Normal Femoral 2+ Normal 2+ Normal Posterior Tibial 2+ Normal 2+ Normal Dorsalis Pedis 2+ Normal 2+ Normal Motor/Sensory Exam LUE 0=No drift, limb holds 90 (or 45) degrees for full 10 seconds RUE 0=No drift, limb holds 90 (or 45) degrees for full 10 seconds LLE 0=No drift, limb holds 90 (or 45) degrees for full 10 seconds RLE 0=No drift, limb holds 90 (or 45) degrees for full [address] Scans/ Angiograms CT Chest -Multicystic lesion arising off the inferior aspect of the left thyroid lobe measuring 2.5 x 2.4 cm. *Atelectasis -Scattered granulomas CT Abdomen/Pelvis -1.7 cm simple cyst in hepatic dome -Multiple calcified granulomas are noted in spleen, likely sequelae of prior granulomatous disease -Fatty atrophy of pancreas -Bilateral hypodense lesions throughout both kidneys, largest is 3.2 cm, likely simple cysts -Large hiatal hernia -Diverticulosis -Atherosclerosis *age indeterminate compression deformity of the T5 vertebral body -Multiple chronic rib fractures -Severe bilateral hip osteoarthritis CT Cervical Spine -moderate calcific atherosclerosis of the common carotid arteries CT Thoracic Spine *Age indeterminate compression fracture deformity of the T6 vertebral body -Bone demineralization - High-grade neuroforaminal narrowing at the right T2-T3 through T5-T6 levels and left T10-T11 level CT Lumbar Spine -Chronic anterior compression fracture deformity of the L1 vertebral body resulting in approximately 50% height loss associated with approximately 4 mm retropulsion and evidence prior vertebroplasty/kyphoplasty change -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 Mild generalized parenchymal volume loss -hyperostosis frontalis interna -Chronic healed fracture deformities of nasal bones Radiographs CXR *Probable atelectasis XR Pelvis -Lucency to right femoral neck, XR Thoracic *No additional acute findings Diagnosis: *Atelectasis *Age indeterminate compression deformity of the T5 vertebral body *Age indeterminate compression fracture deformity of the T6 vertebral body Incidentals: -Multicystic lesion arising off the inferior aspect of the left thyroid lobe measuring 2.5 x 2.4 cm. -Scattered granulomas in the chest -1.7 cm simple cyst in hepatic dome -Multiple calcified granulomas are noted in spleen, likely sequelae of prior granulomatous disease -Fatty atrophy of pancreas -Bilateral hypodense lesions throughout both kidneys, largest is 3.2 cm, likely simple cysts -Large hiatal hernia -Diverticulosis -Atherosclerosis -Multiple chronic rib fractures -Severe bilateral hip osteoarthritis -Bone demineralization - High-grade neuroforaminal narrowing at the right T2-T3 through T5-T6 levels and left T10-T11 level -Chronic anterior compression fracture deformity of the L1 vertebral body resulting in approximately 50% height loss associated with approximately 4 mm retropulsion and evidence prior vertebroplasty/kyphoplasty change -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 -hyperostosis frontalis interna -Chronic healed fracture deformities of nasal bone Consults -Neurosurgery -Pain management -Geriatric Comments/ Clinical Plan -No new injuries found on tertiary exam or imaging review -Pt to follow up with PCP for above named incidentals -See progress note for detailed plan of care Tonie King PA-C 11/03/2023 4:50 PM * Wisam Pinedo APRN-TC OPERATOR - 11/03/2023 2:58 PM CDT GERIATRIC MEDICINE FOLLOW UP NOTE 11/03/2023 2:59 PM Reason for Consult: Fall Consulting Physician and Team: Trauma Acute Events: Eating breakfast during my visit Awaiting PT/OT BP elevated 190's this morning. Down to 160's this afternoon Subjective: Bowels have not moved yet Breathing okay Reports back and chest wall pain Some anxiety as well Comprehensive Geriatric Assessment: CONFUSION ASSESSMENT METHOD 1) Acute onset or fluctuating course: No 2) Inattention: No 3) Disorganized thinking: No 4) Altered Level of Consciousness: No Level of Consciousness: Alert Delirium is suggested if criteria #1 & #2 are positive PLUS criteria #3 OR #4 Is deliirum suggested: No Current Meds: 0.9% NaCl 3 mL Intracatheter q8h 0.9% NaCl 3 mL Intracatheter q8h atorvastatin 40 mg Oral QDAY bacitracin Topical TID enoxaparin 30 mg Subcutaneous q12h famotidine 20 mg Oral BID HYDROcodone-acetaminophen 1 tablet Oral TID iopamidol Intravenous Contrast - Once latanoprost 1 drop Each Eye AT BEDTIME levothyroxine 75 mcg Oral QDAY AT 0600 lidocaine 2 patch Transdermal q24h losartan 100 mg Oral QDAY melatonin 3 mg Oral AT BEDTIME metoprolol succinate XL 24hr 100 mg Oral QDAY pantoprazole EC 40 mg Oral QDAY PARoxetine 20 mg Oral QDAY polyethylene glycol 3350 17 g Oral QDAY senna 8.6 mg Oral QDAY OBJECTIVE Vitals: Patient Vitals for the past 6 hrs: Temp Pulse Resp BP BP Method 11/03/23 1245 98.3 ??F (36.8 ??C) 66 19 169/74 Automatic 11/03/23 1221 -- 68 18 -- -- Intake/Output Summary (Last 24 hours) at 11/03/2023 1459 Last data filed at 11/03/2023 1300 Gross per 24 hour Intake 540 ml Output 650 ml Net -110 ml Weight: Wt Readings from Last 2 Encounters: 11/03/23 113.4 kg (250 lb) Physical Exam: General: NAD, alert pleasant HEENT: EOMI. PERRL Neck: Cervical collar Pulm: CTA-B. No WRR Cardio: RRR, S1S2 normal. No MRG Abdomen: Soft, NT, ND. BS x 4 normoactive Extremity: No edema Neuro: A & O x 3. Non focal Skin: Warm and dry Labs: CBC: Recent Labs Component Name 11/03/23 0240 11/02/23 0711 11/01/23 1956 WBC 5.7 7.6 6.8 HGB 11.7* 12.3 12.8 BMP: Recent Labs Component Name 11/03/23 0240 11/02/23 0711 11/01/231955 NA 142 141 138 CL 108* 108* 107 CO2 27 24 21* BUN 12 14 20 CREATININE 0.60 0.54* 0.62 Recent Labs Component Name 11/03/23 0240 11/02/23 0711 11/01/231955 CALCIUM 8.7 9.0 8.7 PHOS 3.0 3.0 - LFT: No results for input(s): PROT , ALB , ALKPHOS , AST , ALT in the last 63905 hours. Coagulation: Recent Labs Component Name 11/01/231955 PT 15.5* INR 1.3 Imaging: CT HEAD WO CONTRAST - Head Trauma, CSF leak, mental status changes Result Date: 11/01/2023 IMPRESSION: 1.No acute intracranial abnormality. 2.No acute maxillofacial fracture. 3.No acute fracture or traumatic malalignment of the cervical spine. 4.Age-indeterminate compression fracture deformities of the T5 and T6 vertebral bodies resulting in 30% height loss and associated with a thin sclerotic line through the superior endplates at these levels, which may represent lvtkp-hr-bkarlnpv microtrabecular fractures. No evidence of retropulsion. Recommend correlation with point tenderness atthese levels to assess for acuity. 5.No acute [...] Elliott MD, PhD on 11/01/2023 10:[address] FACIAL BONES WO CONTRAST - Facial trauma, fx suspected, blunt Result Date: 11/01/2023 IMPRESSION: 1.No acute intracranial abnormality. 2.No acute maxillofacial fracture. 3.No acute fracture or traumatic malalignment of the cervical spine. 4.Age-indeterminate compression fracture deformities of the T5 and T6 vertebral bodies resulting in 30% height loss and associated with a thin sclerotic line through the superior endplates at these levels, which may represent elaer-nh-fstiwaml microtrabecular fractures. No evidence of retropulsion. Recommend correlation with point tenderness atthese levels to assess for acuity. 5.No acute [...] Elliott MD, PhD on 11/01/2023 10:[address] THORACIC SPINE WO CONTRAST - T/L-spine trauma, spine fracture Result Date: 11/01/2023 IMPRESSION: 1.No acute intracranial abnormality. 2.No acute maxillofacial fracture. 3.No acute fracture or traumatic malalignment of the cervical spine. 4.Age-indeterminate compression fracture deformities of the T5 and T6 vertebral bodies resulting in 30% height loss and associated with a thin sclerotic line through the superior endplates at these levels, which may represent jwzok-gg-obyctveh microtrabecular fractures. No evidence of retropulsion. Recommend correlation with point tenderness atthese levels to assess for acuity. 5.No acute [...] Elliott MD, PhD on 11/01/2023 10:[address] LUMBAR SPINE WO CONTRAST - T/L-spine trauma, Spine fracture Result Date: 11/01/2023 IMPRESSION: 1.No acute intracranial abnormality. 2.No acute maxillofacial fracture. 3.No acute fracture or traumatic malalignment of the cervical spine. 4.Age-indeterminate compression fracture deformities of the T5 and T6 vertebral bodies resulting in 30% height loss and associated with a thin sclerotic line through the superior endplates at these levels, which may represent rhymg-xn-odhmypuq microtrabecular fractures. No evidence of retropulsion. Recommend correlation with point tenderness atthese levels to assess for acuity. 5.No acute [...] Elliott MD, PhD on 11/01/2023 10:[address] CERVICAL SPINE WO CONTRAST Result Date: 11/01/2023 IMPRESSION: 1.No acute intracranial abnormality. 2.No acute maxillofacial fracture. 3.No acute fracture or traumatic malalignment of the cervical spine. 4.Age-indeterminate compression fracture deformities of the T5 and T6 vertebral bodies resulting in 30% height loss and associated with a thin sclerotic line through the superior endplates at these levels, which may represent kfqlr-yz-ddfxarke microtrabecular fractures. No evidence of retropulsion. Recommend correlation with point tenderness atthese levels to assess for acuity. 5.No acute [...] Elliott MD, PhD on 11/01/2023 10:[address] CHEST ABDOMEN PELVIS W CONT - Abdomen-pelvis trauma, blunt or penetrating Result Date: 11/01/2023 Impression: 1.Age-indeterminate, likely chronic, compression deformity of T5 vertebral body with mild height loss. Refer to dedicated spine CT. 2.Otherwise, no acute chest, abdomen, or pelvis. > Dictated by Paxton Whitley DO (residential mental health worker). I, Milad Mcnulty MD have personally reviewed andinterpreted this examination/study. > Interpreting Provider: Milad Mcnulty MD on 11/01/2023 10:30 P M XR PELVIS 1 OR 2VW Result Date: 11/01/2023 IMPRESSION: Lucency to the right femoral neck may represent a fracture. This will be better characterized on CT chest abdomen pelvis. Report dictated by Sarahkimberley Keith Dr, MD (residential mental health worker). I, Loreto Bone MD have personally reviewed and interpreted this examination/study. > Interpreting Provider: Loreto Bone MD on 11/01/2023 9:17 PM ASSESSMENT & RECOMMENDATIONS Fall with polytrauma -Reports her walker slipped causing her to fall. -PT/OT -Up in chair for meals -Vitamin D2,000 units daily -Outpatient DEXA scan with PCP -Scheduled tylenol 1 gm q 8 hrs -Lidoderm patch -PRN oxycodone 5mg q 6 hrs -SW for dispo planning. Will likely need SNF HTN -BP's elevated this morning 190's prior to taking metoprolol 100mg and losartan 100mg daily -IF BP's consistently >160 would recommend to start amlodipine 5mg daily Constipation -Bowels have not moved yet -Increase miralax and senna to BID -Dulcolax suppository tomorrow if no BM by then #Risk of delirium -Not delirious this morning. At risk given fall, fractures, pain, limited mobility, constipation, disturbed sleep/wake cycle -Agree with stopping flexeril as it is highly deliriogenic in the elderly Delirium Recommendations: Delirium is a morbid condition, associated with mortality. It's preventable. - daily CAM assessment - minimize tethers (eg re-assess need for Fernandez daily) - Miralax for prevention of constipation if on opioids - early mobilization - Avoid sedative hypnotics/anticholniergics. Avoid narcotics - Ensure adequate pain control. - Address sensory deficits. Vision and hearing - Provide orienting stimuli: Clock, calendar, minimal staff changes, light during the day, dark at night - please place the following orders in a nursing communication: up in chair with meals TID if activity orders allow blinds up and lights on in the AM. daily family visits Minimize nocturnal disturbances. Avoid unnecessary labs, VS, medications at night. Promote regular sleep/wake cycle Optimize nutritional status. Ensure supplements TID between meals if needed Monitor electrolytes QD, Replace K<4, Mg<2, Phos<3 Reviewed labs and VS Thank you for this consult. Please call with questions. Geriatrics will continue to follow along with you. I have spent total 35 minutes caring for this patient, reviewing available labs, medications, coordinating care with staff (Tonie with trauma). Patient discussed with attending, Dr. Ira Pinedo, ANP-BC, Geriatrics 11/03/2023 2:59 PM Pager: [phone] * Tiffany Lynn RN - 11/03/2023 12:37 PM CDT Care Coordination Progress Note Anticipated level of care at discharge: Unknown: Anticipated level of care provider: None: Anticipated Discharge Date: 11/04/23: Discharge Plan: Waiting on recommendations from PT/OT. Pt on strict bedrest. Orientation Level: Oriented X4: Family Support (Name and Phone): Extended Emergency Contact Information Primary Emergency Contact: harlan fierro Mobile Relation: Son Middleware Architect needed? No Transportation at Discharge: : READMISSION RISK SCORE is 13 at 12:37 PM 11/03/2023.: Tiffany Lynn RN, BSN Physical Scientist [phone] \ * Denilson Dc PT - 11/03/2023 9:39 AM CDT [facility] Physical Medicine and Rehabilitation Physical Therapy Initial Evaluation Note Patient: Promise Fierro Med Record Number: [id number] Date of : 1940 Age: [age] year old PPE worn by staff: gloves;mask - procedural PPE worn by patient: gown - patient, clean;socks - clean Tech: no Recommendations: Discharge PT Discharge Recommendations: Other: (Defer d/t hypertension exeeds MD BP parameters. Unable to advance functional mobility/ADLs.) In addition to the 1:1 evaluation of the patient, additional eval time was spent completing the chart review prior to the assessment, completing the multidisciplinary plan of care and education plan post evaluation and communicating results of the eval to other treatment team members. Nurse and Occupational Therapist contacted regarding patient status and/or discharge plan. Physician Orders: Evaluation and Treat PRECAUTIONS: Weight Bearing Status: (no WB restrictions noted) Activity Level: Activity as Tolerated Spine Precautions: Yes Spine Precautions: (UNIT MANAGER CONVENIENCE [employer]ORES Jacob Olsen) DIAGNOSIS: Patient Active Problem List: Allergies Trauma Other closed fracture of thoracic vertebra, unspecified thoracic vertebral level, initial encounter([facility]) Closed fracture of multiple ribs of left side, initial encounter Acute traumatic pain Scalp laceration Past Medical History: Diagnosis Date Arthritis DVT (deep venous thrombosis) ([facility]) Esophageal stricture GERD (gastroesophageal reflux disease) HLD (hyperlipidemia) Hypertension Hypothyroidism Nontoxic single thyroid nodule Other pulmonary embolism without acute cor pulmonale ([facility]) SUBJECTIVE: Subjective: Agreeable to therapy evaluation PATIENT GOALS: Home Situation: Type of Residence: Apartment Lives with:: Alone Steps to Enter: No Home Structure: One Story Primary Bedroom: First Floor Primary Bathroom: First Floor Bathroom : Tub/Shower Combo Equipment at Home: Tub Transfer Bench;Walker-2 Wheeled;Wheelchair-Standard Prior Level of Functioning: Prior Level of Function Mobility: Ambulate-In Community;Independent;With Assistive Device Fallen Within 6 Mos: 1 Have Help at Home?: Yes, there is help at home now Who assists you at home?: Boat Canvas Maker And Installer (4 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 General Appearance: NAD; [employer] donned LDAs: IV's: Peripheral line Edema: no edema noted in bilateral lower extremities Vitals: (*Assess the 3 levels of oxygen saturations both for room air and 02 unless rest on room air is 88% or less). Edge of bed BP: 225/80 216/75 HR: Sp02 Room Air Post Activity BP: Refused d/t UE pain from cuff HR: Sp02 Sp02 L O2 Room Air Observations: Pt with c/o dizziness after supine > sit. BP assessed EOB. Replaced cuff for bigger size and rechecked BP. RN is aware of hypertension. BP exceeds MD's BP parameters in order set. Mental Status/Cognition: Level of Consciousness-Adult: Alert Orientation Level: Oriented X4 Cognition: Follows Commands-Consistent;Attention/concentration-normal for age;Processing-delayed ROM: RLE: AROM WFL LLE: AROM WFL Strength: RLE:not tested LLE: not tested Tone: RLE: no abnormal tone noted LLE: no abnormal tone noted Coordination: RLE: not tested LLE: not tested Sensation: RLE: no complaints of numbness or tingling LLE: no complaints of numbness or tingling Mobility: A gait belt and non-slip socks were used for all out of bed activity this date. Bed Mobility: Supine to Sit: Minimal Assistance with HOB in semi-fowlers position Sit to Supine: Moderate Assistance;X 2 Comments: Via log roll technique Transfers: Sit to Stand: (Defer d/t HTN, dizziness. RN is aware.) Gait: Weight Bearing Status: (no WB restrictions noted) Comments: Unable to assess transfers and gait d/t vitals and symptoms. Balance: Balance Scales/Tests Used: Sitting: Static/Dynamic;Standing: Static/Dynamic Sitting - Static: Fair + Sitting - Dynamic: Fair Standing - Static: Not tested Standing - Dynamic: Not tested ACTIVITY TOLERANCE: Patient's activity tolerance: poor TREATMENT/INTERVENTIONS: evaluation, bed mobility training, balance activities, and monitoring of vitals AM-PAC 6 Clicks Mobility Raw Score:: 10 EDUCATION: While performing PT, Patient was instructed in:functional mobility training, safety awareness/fall precautions , discharge planning, use of call light Presented to patient who demonstrates Fair understanding of instructions given. INFORMED CONSENT TO TREATMENT: Plan of care including recommended therapy, goals and frequency, discussed with patient who understands and agrees to proceed. ASSESSMENT: Patient would benefit from additional Physical Therapy sessions to achieve the following functionalgoals to enhance independence. Short Term Goals: Goal Formation With patient Patient will perform bed mobility with stand by assist and while maintaining back safety precautions Patient will tolerate standing for further mobility assessment. Patient will tolerate edge of bed >5 minutes with vitals WNL. Patient will verbalize adequate understanding of spinal precautions. Shelter Goal(s): To be determined Equipment Issued: gait belt Plan: Gait training Transfer training Assistive device training Endurance training Bed mobility training Balance training Energy conservation techniques Safety awareness Home exercise program training If patient is discharged from the facility, this note serves as a discharge summary if further physical therapy visits did not occur. Refer to filed flowsheet for further details. Following therapy session, patient left in bed, with bed alarm on , with call light within reach, with RN, Uri aware, with therapy cues visible on white board. * Gelynicholas Danielle L, OT - 11/03/2023 9:37 AM CDT [facility] Physical Medicine and Rehabilitation Occupational Therapy Initial Evaluation Note Patient: Promise Fierro [facility] Record Number: [id number] Date of : 1940 Age: [age] year old Co eval with PT PPE worn by staff: gloves;mask - procedural Tech: N/A Recommendations: OT Discharge Recommendations: : (Defer d/t hypertension exeeds MD BP parameters in order set. Unable to advance functional mobility/ADLs.) In addition to the 1:1 evaluation of the patient, additional eval time was spent completing the chart review prior to the assessment, completing the multidisciplinary plan of care and education plan post evaluation and communicating results of the eval to other treatment team members. Nurse and Physical Therapist contacted regarding patient status and/or discharge plan. Physician Orders: Evaluation and Treat Activity Level: as tolerated PRECAUTIONS: Weight Bearing Status: (WBAT; [employer] brace) Spine Precautions: Log rolling;No bending,lifting, no twisting DIAGNOSIS: Patient Active Problem List: Allergies Trauma Other closed fracture of thoracic vertebra, unspecified thoracic vertebral level, initial encounter([facility]) Closed fracture of multiple ribs of left side, initial encounter Acute traumatic pain Past Medical History: Diagnosis Date Arthritis DVT (deep venous thrombosis) ([facility]) Esophageal stricture GERD (gastroesophageal reflux disease) HLD (hyperlipidemia) Hypertension Hypothyroidism Nontoxic single thyroid nodule Other pulmonary embolism without acute cor pulmonale ([facility]) SUBJECTIVE: Subjective: Pt is agreeable to participate. Pt is [place]. Pt is eager to ambulate to toilet when OT entered room. 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 LDA: IV's: Peripheral line & external female catheter Edema: No edema noted Vitals: (*Assess the 3 levels of oxygen saturations both for room air and 02 unless rest on room air is 88% or less). Ex/Gait/Activity Without 02 BP: 225/80 216/75 Post Activity BP: Pt refused d/t UE pain from cuff Observations: Pt with c/o dizziness after supine > sit. Replaced cuff for bigger size and rechecked BP. RN is aware of hypertension. BP exceeds MD's BP parameters in order set. Mental Status/Cognition: Pt is [place] but follows simple 1 step commands with repetition. Level of Consciousness-Adult: Alert Orientation Level: Oriented X4 Cognition: Follows Commands-Consistent;Attention/concentration-normal for age;Processing-delayed UE ROM: RUE: AROM WFL LUE: AROM WFL Strength: RUE: WFL LUE: WFL UE Tone RUE: no abnormal tone noted LUE: no abnormal tone noted Coordination: intact serial opposition for bilateral hands UE Proprioception RUE: WFL LUE: WFL UE Sensation RUE: no complaints of numbness or tingling LUE: no complaints of numbness or tingling Perception: Inattention/Neglect: Appears intact Visual Motor Tracking: Able to track stimulus in all quads w/o difficulty Mobility: A gait belt and non-slip socks were used for all out of bed activity this date. Bed Mobility: Supine to Sit: Minimal Assistance with HOB in semi-fowlers position ; educated on log roll technique Sit to Supine: Moderate Assistance;X 2 Transfers: Sit to Stand: (Defer d/t HTN, dizziness. RN is aware.) Functional Ambulation: Defer d/t HTN, dizziness. RN is aware. Balance: Balance Scales/Tests Used: Sitting: Static/Dynamic;Standing: Static/Dynamic Sitting - Static: Fair + Sitting - Dynamic: Fair Standing - Static: Not tested Standing - Dynamic: Not tested Activities of Daily Living Lower Body Dressing: Maximal Assistance - don B socks at EOB Splint Issued/Checked: none ACTIVITY TOLERANCE: Patient's activity tolerance: fair minus. AM-PAC 6 Clicks Daily Activity Raw Score:: 13 TREATMENT / EDUCATION / INTERVENTIONS: While performing OT, Patient was instructed in:functional mobility training, self-care training, weight bearing status, cognitive retraining, energy conservation, safety awareness/fall precautions , spine precautions , use of adaptive equipment, discharge planning, use of call light Presented to patient who demonstrates Fair understanding of instructions given. INFORMED CONSENT TO TREATMENT: Plan of care including recommended therapy, goals and frequency, discussed with patient who understands and agrees to proceed. ASSESSMENT: Functional performance limited due to: limited activities of daily living, pain, decreased functional mobility, decreased functional balance, decreased cognition , decreased safety awareness, upper extremity functional impairments, decreased endurance and activity tolerance, and decreased coordination. Patient continues to benefit from skilled Occupational Therapy to achieve the following functional goals. Equipment Issued: gait belt. Short Term Goals: Goal Formation With patient Patient will perform lower extremity dressing with stand by assist Patient will perform supine to/from sit with stand by assist Patient will demonstrate good understanding of spine precautions Shelter Goal(s): Patient to discharge to appropriate next level of inpatient care. Plan: Patient continues to benefit from skilled therapy services., Continue with goals as established. If patient is discharged from the facility, this note serves as a discharge summary if further occupational therapy visits did not occur. Refer to filed flowsheet for further details. Following therapy session, patient left in bed, with bed alarm on , with call light within reach, with Viktoriya AZEVEDO aware. * Viktoriya Sotomayor RN - 11/03/2023 8:28 AM CDT Problem: Pain/Discomfort Goal: Patient exhibits reduced pain/discomfort as evidenced by pain scores Outcome: Progressing Goal: Patient uses pharmacological and non-pharmacological pain management strategies. Outcome: Progressing Goal: Patient verbalizes acceptable level of pain relief and ability to engage in desired activity. Outcome: Progressing Problem: Fall Risk Goal: Fall risk and fall related injury risk are minimized (interventions related to the fall risk can be found in the flowsheet documentation) Outcome: Progressing * Denilson Dc PT - 11/03/2023 8:24 AM CDT [facility] Department of Physical Medicine & Rehabilitation Patient: Promise Fierro [facility] Record Number: [id number] Date of : 1940 Age: [age] year old 11/03/23 0824 Missed Visit Missed Visit Bedrest;Other (Comment);No Activity Order Pt currently on strict bed rest. Please update with appropriate activity order including brace if patient is appropriate for therapy evaluation. * Danielle Anderson OT - 11/03/2023 7:56 AM CDT [facility] Department of Physical Medicine & Rehabilitation Progress Note Patient: Promise Fierro [facility] Record Number: [id number] Date of : 1940 Age: [age] year old 11/03/23 0700 Missed Visit Missed Visit Bedrest Strict bedrest * Jamil Bernard MD - 11/03/2023 6:11 AM CDT Images from the original note were not included. Trauma Floor Progress Note Admit Date: 11/01/2023 1 Subjective: Promise Fierro is 83 year old female with PMHx of HTN, DVT/PE on Eliquis, HLD that presented on 11/01/23 s/p GLF. She sustained scalp laceration/hematoma. She denies hx of prior falls in the last yearbut gets dizzy often with standing from her medications. She has chronic pain in her back and had hx of multiple epidural injections which helped initially but has taken [place] tid 10mg/325 mg due to no longer getting back injections. She has been in rehab before in [place], [place] when she had knee replacement surgery. Patient lives alone in a house with a paid caregiver. Son lives within 1 block. Patient has not been able to get out of her house recently due to decreasing mobility from back pain andleg swelling. Son states that if she goes to rehabilitation hospital, they would like her to go to [place] in [facility]. Injuries: 2 cm laceration to posterior scalp - repaired in ED with 3-0 chromic gut suture Left rib 5-9 fractures Age indeterminate T5 vertebral body compression deformity PMHx: -GERD -HTN -PE/DVT -MDD -Chronic pain Interval History: 11/02: [place]SS. [place]. Patient states that her pain is well controlled on her current regimen. IS this am is 1000. 11/01: [place]. Pt seen by pain medicine and taught how to use IS. Reports rib pain is controlled and most of her pain is in her back. 10/31: Pt arrived to ED. Current Facility-Administered Medications Medication Dose Route Frequency Provider Last Rate Last Admin 0.9% NaCl injection 3 mL 3 mL Intracatheter q8h Taurus Ferrari MD 3 mL at 11/03/23 0607 And 0.9% NaCl injection 1-10 mL 1-10 mL Intracatheter PRN Taurus Ferrari MD 0.9% NaCl injection 3 mL 3 mL Intracatheter q8h Gold Perez DO 3 mL at 11/02/230 And 0.9% NaCl injection 1-10 mL 1-10 mL Intracatheter PRN Gold Perez DO acetaminophen (Tylenol) tablet 500 mg 500 mg Oral q4h PRN Ady Arizmendi MD 500 mg at 11/01/23 2251 acetaminophen (Tylenol) tablet 650 mg 650 mg Oral q6h Taurus Ferrari MD 650 mg at 11/03/23 0608 albuterol-ipratropium (Duo-Neb) nebulizer solution 3 mL 3 mL Inhalation q6h PRN Tonie King PA-C atorvastatin (Lipitor) tablet 40 mg 40 mg Oral QDAY Taurus Ferrari MD 40 mg at 11/03/23 0814 bacitracin topical ointment Topical TID Taurus Ferrari MD Given at 11/03/23 0814 cyclobenzaprine (Flexeril) tablet 10 mg 10 mg Oral TID PRN Taurus Ferrari MD 10 mg at 11/03/23 1014 enoxaparin (Lovenox) injection 30 mg 30 mg Subcutaneous q12h Taurus Ferrari MD 30 mg at 11/03/23 0814 famotidine (Pepcid) tablet 20 mg 20 mg Oral BID Taurus Ferrari MD 20 mg at 11/03/23 0814 iopamidol (Isovue 370) 76 % contrast Intravenous Contrast - Once Kathryn Quach MD 150 mL at 11/01/23 191 latanoprost (Xalatan) 0.005 % ophthalmic solution 1 drop 1 drop Each Eye AT BEDTIME Taurus Ferrari MD 1 drop at 11/02/23 2115 levothyroxine (Synthroid) tablet 75 mcg 75 mcg Oral QDAY AT 0600 Tonie King PA-C 75 mcg at 11/03/23 0814 lidocaine (Lidoderm) 5 % patch 2 patch 2 patch Transdermal q24h Taurus Ferrari MD 2 patch at 11/03/23 0241 losartan (Cozaar) tablet 100 mg 100 mg Oral QDAY CarLenore rodriguez, DO 100 mg at 11/03/23 0814 melatonin tablet 3 mg 3 mg Oral AT BEDTIME Tonie King PA-C metoprolol succinate XL 24hr (Toprol XL) tablet 100 mg 100 mg Oral QDAY Taurus Ferrari MD 100 mg at 11/03/23 0814 ondansetron (disintegrating) (Zofran ODT) tablet 4 mg 4 mg Oral q6h PRN Taurus Ferrari MD Or ondansetron (Zofran) injection 4 mg 4 mg Intravenous q6h PRN Taurus Ferrari MD oxyCODONE (immediate release) (Roxicodone) tablet 2.5 mg 2.5 mg Oral q4h PRN Taurus Ferrari MD Or oxyCODONE (immediate release) (Roxicodone) tablet 5 mg 5 mg Oral q4h PRN Taurus Ferrari MD 5 mg at11/03/23 1014 pantoprazole EC (Protonix) tablet 40 mg 40 mg Oral QDAY Tonie King PA-C 40 mg at 11/03/23 0814 PARoxetine (Paxil) tablet 20 mg 20 mg Oral QDAY Taurus Ferrari MD 20 mg at 11/03/23 0814 polyethylene glycol 3350 (Miralax) packet 17 g 17 g Oral QDAY Taurus Ferrari MD 17 g at 11/03/23 0814 senna (Senokot) tablet 8.6 mg 8.6 mg Oral QDAY Taurus Ferrari MD 8.6 mg at 11/03/23 0814 Review of Systems Constitutional: Negative for chills and fever. Respiratory: Negative for cough and shortness of breath. Gastrointestinal: Negative for abdominal pain, nausea and vomiting. Musculoskeletal: Positive for back pain and myalgias. Objective: Patient Vitals for the past 8 hrs: BP Temp Temp src Pulse Resp SpO2 11/03/23 0850 -- -- -- 70 18 -- 11/03/23 0831 (!) 194/61 98.4 ??F (36.9 ??C) Oral 67 18 95 % 11/03/23 0421 159/48 98.6 ??F (37 ??C) Oral 63 18 97 % Temp (24hrs), Av.4 ??F (36.9 ??C), Min:97.9 ??F (36.6 ??C), Max:98.6 ??F (37 ??C) I/O last 3 completed shifts: In: 100 [P.O.:100] Out: 650 [Urine:650] Diet: Regular Last BM: 11/02/23 Activity: Activity as tolerated in [employer] brace Physical Exam Constitutional: General: She is not in acute distress. HENT: Head: Normocephalic. Comments: 2 cm laceration. No drainage noted Eyes: Extraocular Movements: Extraocular movements intact. Cardiovascular: Rate and Rhythm: Normal rate and regular rhythm. Pulses: Normal pulses. Heart sounds: Normal heart sounds. Pulmonary: Effort: Pulmonary effort is normal. Breath sounds: No wheezing or rales. Chest: Chest wall: No tenderness. Abdominal: General: There is no distension. Palpations: Abdomen is soft. Tenderness: There is no abdominal tenderness. There is no guarding. Musculoskeletal: Cervical back: No tenderness. Skin: General: Skin is warm and dry. Findings: No lesion. Neurological: General: No focal deficit present. Mental Status: She is alert. Psychiatric: Mood and Affect: Mood normal. Data Review: CBC: Recent Labs Component Name 11/03/23 02411/02/23 0711 11/01/231955 WBC 5.7 7.6 6.8 HGB 11.7* 12.3 12.8 HCT 31.7* 34.4* 38.8 PLTCOUNT 235 247 237 BMP: Recent Labs Component Name 11/03/2323911/02/23 0711 11/01/231955 POTASSIUM 3.7 4.5 4.3 CO2 27 24 21* BUN 12 14 20 CREATININE 0.60 0.54* 0.62 GLUCOSE 104 98 92 CALCIUM 8.7 9.0 8.7 Assessment: Active Problems: Allergies Trauma Other closed fracture of thoracic vertebra, unspecified thoracic vertebral level, initial encounter([facility]) Closed fracture of multiple ribs of left side, initial encounter Acute traumatic pain Scalp laceration Neuro: acute posttraumatic pain Thoracic vertebra fracture Anxiety Insomnia MDD - Does not require further inpatient neurosurgery care. Exam and imaging have remained stable. Theyrecommend: - Activity as tolerated in brace - Can resume anticoagulation as necessary - Follow up with Dr. Gutiérrez or Latrice Barakat outpatient in 6-8 weeks with thoracic upright XR for imaging - continue multimodal analgesia regimen - Geriatric medicine recommends Melatonin 6 mg at hs - On home paroxetine 20 mg -Restarted home [place] regimen with PRN oxy if needed HEENT: Posterior scalp laceration Allergies - Laceration repaired in the ED with 3-0 chromic gut - Pt states that she usually takes Zyrtec for her allergies, however she currently isn't having anysymptoms. She was instructed that if she starts having symptoms she can ask for Zyrtec Respiratory: Left rib 5-9 fractures - encourage IS (1000 today), pulmonary hygiene, OOBAT - Respiratory consult - duonebs PRN Cardiovascular: Hypertension LE edema - Geriatric medicine recommends 100 mg metoprolol and Losartan 100 mg (pt regularly take irbesartan, but it's not on formulary) - Holding lasix at this time per Geriatric Medicine - Monitor VS q4 GI/FEN: GERD - Diet: Regular - SUP: n/a - BM: yesterday (11/01) - Bowel regimen (Senna, Miralax) -On home famotidine and pantoprazole Endocrine: Hypothyroidism with 2x2cm thyroid nodule - Started home levothyroxine 75 mcg - Will need to see endocrine as outpatient for thyroid nodule Renal: - Cr Recent Labs Component Name 11/03/2323911/02/2371011/01/231955 CREATININE 0.60 0.54* 0.62 - CrCl Serum creatinine: 0.6 mg/dL 11/03/23239 Estimated creatinine clearance: 86.1 mL/min , UOP adequate - voiding via purewick - intake and output every 6 hours -replete electrolytes as needed to maintain K >4, Mag >2, Phos >3 - BMP daily Hematology: Recent Labs Component Name 11/03/2323911/02/2371011/01/231955 WBC 5.7 7.6 6.8 HGB 11.7* 12.3 12.8 HCT 31.7* 34.4* 38.8 PLTCOUNT 235 247 237 - transfuse for hgb <7 - CBC daily Infectious Disease: WBC wnl; remains afebrile - abx: n/a - imaging: n/a - CBC daily - rivero culture and skin check for fevers >101.5 Muscloskeletal: Thoracic vertebra fractures -see neuro recommendations above SKIN: Scalp laceration - daily wound care per nursing Lines/Tubes/Drains: PIV Prophylaxis VTE: LVX, SCDs PT/OT: Evaluating today SW: to assist to discharge planning barrier to discharge: Pt needs PT/OT evaluation and pain control. Tonie King PA-C 11/03/2023 10:28 AM I have reviewed the patient's medical record, I have seen and examined the patient with the ART. I have discussed and directed the medical management/treatment and performed decision making for the patients' medical condition and take responsibility for management risk pertaining to this patient. Iagree with the findings and plan of care as documented by the ART. Date of Service: 11/03/2023 Treating hypertension Patient with a ground level fall with blunt polytrauma has multiple rib fractures respiratory therapy consultation. Pain management consultation. Aggressive respiratory toilet. Jamil Bernard MD 11/03/2023 12:36 PM * Zuri Shah RN - 11/02/2023 11:37 PM CDT Problem: Pain/Discomfort Goal: Patient exhibits reduced pain/discomfort as evidenced by pain scores Outcome: Progressing Goal: Patient uses pharmacological and non-pharmacological pain management strategies. Outcome: Progressing Goal: Patient verbalizes acceptable level of pain relief and ability to engage in desired activity. Outcome: Progressing * Gulshan Contreras MD - 11/02/2023 5:14 PM CDT NEUROSURGERY PROGRESS NOTE At the current time, Promise Fierro does not require any further inpatient neurosurgical care. Patient's exam and imaging have remained stable. Please have patient wear brace until follow up. Patient is activity as tolerated in brace. Patient can resume anticoagulation as necessary from a Neurosurgery spine perspective. Please have the patient follow up with Dr. Gutiérrez or Latrice Barakat in 6-8 weeks with thoracic upright XR for imaging. Our office will schedule their follow up appointment, orthey can call [phone]. Neurosurgery follow up information also placed in [facility] discharge navigator. Gulshan Contreras MD 11/02/2023 5:14 PM * Abigail Zamora MSW - 11/02/2023 3:12 PM CDT [employer] brace ordered through P and [facility]--accounting representative to come to ED on 11/02/2023 to provide brace. ED RN aware...........TRICIA Harding.43 * Ravinder Day MD - 11/02/2023 8:24 AM CDT Neurosurgery Progress Note Promise Arndt Sri 11/02/23 Hospital Day: 1 Subjective: NAEO. Patient states she has a headache this morning. Significant Events: Objective: T: 97.2 ??F (36.2 ??C) [Temp Min: 97.2 ??F (36.2 ??C) Max: 97.2 ??F (36.2 ??C)] BP: 157/58[BP Min: 157/58 Max: 211/91] MAP: 93[MAP (mmHg) Min: 93 Max: 145] HR: 54[Pulse Min: 54 Max: 64] RR: 16[Resp Min: 13 Max: 16] Sat: 94 %[SpO2 Min: 94 % Max: 99 %] Input/Output: No intake/output data recorded. RONA/Other Drain: None Respiratory: RA Labs: Recent Labs Component Name 11/02/23 0711 WBC 7.6 HGB 12.3 HCT 34.4* PLTCOUNT 247 Recent Labs Component Name 11/02/23 0711 NA 141 POTASSIUM 4.5 CO2 24 BUN 14 CREATININE 0.54* CALCIUM 9.0 GLUCOSE 98 Recent Labs Component Name 11/01/23 1956 INR 1.3 Imaging: EXAM: CT HEAD WO CONTRAST, CT FACIAL BONES WO CONTRAST, CT CERVICAL SPINE WO CONTRAST, CT THORACIC SPINE WO CONTRAST, CT LUMBAR SPINE WO CONTRAST, DATE/TIME OF EXAM: 11/01/2023 7:48 PM, LOCATION: [facility] HISTORY: Trauma ADDITIONAL CLINICAL INFORMATION: Ordering Provider [...] dependent subsegmental atelectasis of the lung apices. [id number] calcific atherosclerosis of the carotid bulbs and moderate calcific atherosclerosis of the common carotid arteries. Multiple calcified mediastinal lymph nodes that is suggestive of prior healed granulomatous disease. THORACIC SPINE: ALIGNMENT: Mild kyphosis centered at the T5 level and [id number] levoconvex curvature of the upper thoracic spine without significant listhesis. No traumatic malalignment. BONES: Age-indeterminate compression fracture deformity of the T5 vertebral body superior endplate associated with a thin sclerotic line and with approximately 30% height loss anteriorly, which may represent an wxzxp-wg-dnielbpf microtrabecular fracture. Age-indeterminate compression fracture deformity of the T6 vertebral body superior endplate associated with a thin sclerotic line and with approximately 30% height loss centrally, which may represent an uvirn-qn-zlgjttso microtrabecular fracture. Chronic-appearing jincuyt-nr-rqud height loss remaining thoracic vertebral bodies. No retropulsion at any level. Osseous structures are markedly demineralized. DISCS: Multilevel mild disc space narrowing. DEGENERATIVE CHANGES: Overall wokt-zv-qaqxxeaa multilevel degenerative changes. SPINAL CANAL/NEUROFORAMEN: No significant spinal canal stenosis. High-grade neuroforaminal narrowing at the right T2-T3 through T5-T6 levels and left T10-T11 level in addition to tgat-vm-zdvxnwwe neuroforaminal narrowing elsewhere. SOFT TISSUES: Visualized soft tissues are normal. OTHER: Dependent atelectasis of the lungs bilaterally. Mildly tortuous thoracic aorta with eopolbai-gw-ninlue calcific atherosclerosis. Multiple calcified mediastinal lymph nodes [...] phenomena at all levels. DEGENERATIVE CHANGES: Overall pavldnac-hd-ooeblq multilevel degenerative change, characterized by varying degrees of posterior disc bulges, ligamentum flavum hypertrophy, and facet arthropathy. SPINAL CANAL/NEUROFORAMEN: Multilevel spinal canal stenoses that is notably mild at the T12-L1 and L2-L3 levels, shnqrqht-lo-awcvju at the L3-L4 and L4-L5 levels, and [...] concurrently reported chest, abdomen, and pelvis CT. IMPRESSION: 1.No acute intracranial abnormality. 2.No acute maxillofacial fracture. 3.No acute fracture or traumatic malalignment of the cervical spine. 4.Age-indeterminate compression fracture deformities of the T5 and T6 vertebral bodies resulting in 30% height loss and associated with a thin sclerotic line through the superior endplates at these levels, which may represent xybnx-xy-nkuloxpu microtrabecular fractures. No evidence of retropulsion. Recommend [...] CT for description of additional nonspine-related abnormalities. Diet: DIET REGULAR Fluids: per primary MEDICATIONS FOR CURRENT ENCOUNTER: SCHEDULED MEDICATIONS: 0.9% NaCl injection 3 mL, Intracatheter, q8h 0.9% NaCl injection 3 mL, Intracatheter, q8h acetaminophen (Tylenol) tablet 650 mg, Oral, q6h atorvastatin (Lipitor) tablet 40 mg, Oral, QDAY bacitracin topical ointment, Topical, TID enoxaparin (Lovenox) injection 30 mg, Subcutaneous, q12h famotidine (Pepcid) tablet 20 mg, Oral, BID iopamidol (Isovue 370) 76 % contrast, Intravenous, Contrast - Once latanoprost (Xalatan) 0.005 % ophthalmic solution 1 drop, Each Eye, AT BEDTIME lidocaine (Lidoderm) 5 % patch 2 patch, Transdermal, q24h metoprolol succinate XL 24hr (Toprol XL) tablet 100 mg, Oral, QDAY PARoxetine (Paxil) tablet 20 mg, Oral, QDAY polyethylene glycol 3350 (Miralax) packet 17 g, Oral, QDAY senna (Senokot) tablet 8.6 mg, Oral, QDAY [COMPLETED] 0.9% NaCl IV bolus, Intravenous, Now [COMPLETED] fentaNYL (PF) (Sublimaze) injection 50 mcg, Intravenous, Once [COMPLETED] oxyCODONE (immediate release) (Roxicodone) tablet 5 mg, Oral, Once [COMPLETED] Tdap (ccxixlu-ednlegwxlb-hhdgf pertussis) (Boostrix) (7y+) injection 0.5 mL, Intramuscular, Now CONTINUOUS MEDICATIONS: PRN MEDICATIONS: Or Or 0.9% NaCl injection 1-10 mL, Intracatheter, PRN 0.9% NaCl injection 1-10 mL, Intracatheter, PRN acetaminophen (Tylenol) tablet 500 mg, Oral, q4h PRN cyclobenzaprine (Flexeril) tablet 10 mg, Oral, TID PRN HYDROmorphone (Dilaudid) injection 0.4 mg, Intravenous, q4h PRN ondansetron (disintegrating) (Zofran ODT) tablet 4 mg, Oral, q6h PRN ondansetron (Zofran) injection 4 mg, Intravenous, q6h PRN oxyCODONE (immediate release) (Roxicodone) tablet 2.5 mg, Oral, q4h PRN oxyCODONE (immediate release) (Roxicodone) tablet 5 mg, Oral, q4h PRN General: lying flat in stretcher, endorses rib pain Cardiovascular: RRR Respiratory: CTAB Abdominal: S, NT, ND Neuro: awake, alert, sensation intact Deltoid Bicep Tricep Variety Lathe Operator Wrist Ext Finger ext Hip Flexor Quad Hamstring Tib Ant Gastroc EHL Right 5 5 5 5 5 5 5 5 5 5 5 5 Left 5 5 5 5 5 5 5 5 5 5 5 5 Pain limited weakness Pinpoint tenderness to palpation between shoulder blades Assessment: 83 year old female with PMHx of HTN, PE on Eliquis, HLD who presented to [facility] on 11/01/2023 s/p ground level fall. CT thoracic spine demonstrated age- indeterminate compression fracture deformities ofT5 and T6 . Patient is neurologically intact with tenderness to palpation at those levels. Plan: - Continue to monitor neuro exam q4 hours - Please obtain [employer] brace and X-rays uprights of thoracic spine in brace. No need for MRI. - cervical collar removed at bedside - Activity: bedrest, okay to sit up to 30 degrees - Diet as tolerated - Pain control PRN per primary team - Please hold all anticoagulation/antiplatelet medications at this time - Okay for VTE prophylaxis - Overall care per primary Tim Leiva MD 8:26 AM 11/02/23 * Kathryn Quach MD - 11/02/2023 5:53 AM CDT Trauma Surgery Progress Note DATE: 11/02/2023 Patient Name: Promise Fierro : 1940 Admit Date: 11/01/2023 6:51 PM Hospital Day: Hospital Day: 1 History: Promise Fierro is an 83 yr old F w/ PMHx of HTN, PE, HLD who was brought in by EMS from [facility] as level 2 trauma after ground level fall. Per EMS, patient was using her walker when she hit the curb on the sidewalk and fell to the ground hitting her head w/ +LOC. Patient reports talking to neighbors after regaining consciousness. Patient AOx4 on EMS arrival and given LR in route to hospital.On admission to [facility] patient complains of headache to the back of head and L chest tenderness and nausea, is hypertensive w/ systolic in 220's. Subjective: NAEO. Pt seen by pain medicine and taught how to use IS. Reports rib pain is controlled and most ofher pain is in her back. Injuries: 2 cm laceration to posterior scalp Left rib 5-9 fractures Age indeterminate T5 vertebral body compression deformity Procedures: Lac repair in ED - see procedure note Objective: Diet: DIET REGULAR Input and Output: No intake/output data recorded. Vital Signs: Temp: [97.2 ??F (36.2 ??C)] Pulse: [54-64] Resp: [13-16] BP: (157-211)/(58-125) SpO2: [94 %-99 %] Physical Exam: Gen: Alert and oriented, NAD ENT: 2cm laceration in posterior scalp, repaired in ED Resp: unlabored breathing on RA CV: RRR, pulse 2+ Abd: Soft, nontender to palpation, nondistended, no rebound/guarding, non-peritoneal MSK: WWP, no c/c/e Neuro: Moving all extremities, no focal deficits Psych: Appropriate mood and affect Labs: Recent Labs Component Name 11/01/231955 WBC 6.8 HGB 12.8 HCT 38.8 PLTCOUNT 237 Recent Labs Component Name 11/01/231955 POTASSIUM 4.3 CO2 21* BUN 20 CREATININE 0.62 GLUCOSE 92 CALCIUM 8.7 Imaging: CT HEAD WO CONTRAST - Head Trauma, CSF leak, mental status changes Result Date: 11/01/2023 IMPRESSION: 1.No acute intracranial abnormality. 2.No acute maxillofacial fracture. 3.No acute fracture or traumatic malalignment of the cervical spine. 4.Age-indeterminate compression fracture deformities of the T5 and T6 vertebral bodies resulting in 30% height loss and associated with a thin sclerotic line through the superior endplates at these levels, which may represent hgkfm-nc-jvdnoaek microtrabecular fractures. No evidence of retropulsion. Recommend correlation with point tenderness atthese levels to assess for acuity. 5.No acute [...] Elliott MD, PhD on 11/01/2023 10:[address] FACIAL BONES WO CONTRAST - Facial trauma, fx suspected, blunt Result Date: 11/01/2023 IMPRESSION: 1.No acute intracranial abnormality. 2.No acute maxillofacial fracture. 3.No acute fracture or traumatic malalignment of the cervical spine. 4.Age-indeterminate compression fracture deformities of the T5 and T6 vertebral bodies resulting in 30% height loss and associated with a thin sclerotic line through the superior endplates at these levels, which may represent fywqh-nc-oaufdrqy microtrabecular fractures. No evidence of retropulsion. Recommend correlation with point tenderness atthese levels to assess for acuity. 5.No acute [...] Elliott MD, PhD on 11/01/2023 10:[address] THORACIC SPINE WO CONTRAST - T/L-spine trauma, spine fracture Result Date: 11/01/2023 IMPRESSION: 1.No acute intracranial abnormality. 2.No acute maxillofacial fracture. 3.No acute fracture or traumatic malalignment of the cervical spine. 4.Age-indeterminate compression fracture deformities of the T5 and T6 vertebral bodies resulting in 30% height loss and associated with a thin sclerotic line through the superior endplates at these levels, which may represent lttaj-tz-zqftbita microtrabecular fractures. No evidence of retropulsion. Recommend correlation with point tenderness atthese levels to assess for acuity. 5.No acute [...] Elliott MD, PhD on 11/01/2023 10:[address] LUMBAR SPINE WO CONTRAST - T/L-spine trauma, Spine fracture Result Date: 11/01/2023 IMPRESSION: 1.No acute intracranial abnormality. 2.No acute maxillofacial fracture. 3.No acute fracture or traumatic malalignment of the cervical spine. 4.Age-indeterminate compression fracture deformities of the T5 and T6 vertebral bodies resulting in 30% height loss and associated with a thin sclerotic line through the superior endplates at these levels, which may represent xqlkn-oa-vexdodqi microtrabecular fractures. No evidence of retropulsion. Recommend correlation with point tenderness atthese levels to assess for acuity. 5.No acute [...] Elliott MD, PhD on 11/01/2023 10:[address] CERVICAL SPINE WO CONTRAST Result Date: 11/01/2023 IMPRESSION: 1.No acute intracranial abnormality. 2.No acute maxillofacial fracture. 3.No acute fracture or traumatic malalignment of the cervical spine. 4.Age-indeterminate compression fracture deformities of the T5 and T6 vertebral bodies resulting in 30% height loss and associated with a thin sclerotic line through the superior endplates at these levels, which may represent jybvw-dh-aesjxaaa microtrabecular fractures. No evidence of retropulsion. Recommend correlation with point tenderness atthese levels to assess for acuity. 5.No acute [...] Elliott MD, PhD on 11/01/2023 10:[address] CHEST ABDOMEN PELVIS W CONT - Abdomen-pelvis trauma, blunt or penetrating Result Date: 11/01/2023 Impression: 1.Age-indeterminate, likely chronic, compression deformity of T5 vertebral body with mild height loss. Refer to dedicated spine CT. 2.Otherwise, no acute chest, abdomen, or pelvis. > Dictated by Paxton Whitley DO (residential mental health worker). IMilad MD have personally reviewed andinterpreted this examination/study. > Interpreting Provider: Milad Mcnulty MD on 11/01/2023 10:30 P M XR PELVIS 1 OR 2VW Result Date: 11/01/2023 IMPRESSION: Lucency to the right femoral neck may represent a fracture. This will be better characterized on CT chest abdomen pelvis. Report dictated by Sarah eKith Dr, MD (residential mental health worker). ILoreto MD have personally reviewed and interpreted this examination/study. > Interpreting Provider: Loreto Bone MD on 11/01/2023 9:17 PM ASSESSMENT: Promise Feirro is an 83 yr old F who presents to [facility] as level 2 trauma following unwitnessed ground level fall an hit in head w/ LOC. PLAN: Injuries: 2 cm laceration to posterior scalp Left rib 5-9 fractures Age indeterminate T5 vertebral body compression deformity Incidental Findings: none Neuro: - No acute intracranial injury #acute traumatic pain - Multimodal pain control: Scheduled tylenol, oxycodone, Urine drug screen: Positive for opiates EtOH counseling: n/a #anxiety Home meds restarted: Paroxetine-20 mg daily HEENT: - No acute issues Cardiac: #Afib #hypertension - Continuous cardiac monitoring in ED - Telemetry upon admission: Not ordered - not indicated - MAP goal >65 Home medications resumed: Metoprolol, Atorvastatin Home medications held: Irbesartan 150 mg-morning, eliquis, Furosemide Pulm: #L rib 5-9 fractures - Incentive spirometry: Initial IS: 900. - Continuous pulse oximetry - CXR: Hazy, possible atelectasis, no acute findings - Pulmonary toilet - IS 10/hr when awake - Bronchial hygiene - Respiratory therapy consult - Multimodal pain control - Pain medicine consult, appreciate recs GI: No acute issues. Diet: general diet - Daily BMP - Replace lytes PRN Home medication: Famotidine 20 mg 2x daily /Renal: No acute issues - UA: not indicated Heme: No acute issues - Daily CBC ID: No acute issues - Antibiotics: None indicated - Tdap yes Endo: #Hypothyroidism - Home medication 75 mcg daily MSK: #T5 compression deformity - Neurology consult, recs below - Continue to monitor neuro exam q4 hours - Please obtain MRI thoracic spine wo contrast for further characterization of injury - Discussed possible bracing vs kyphoplasty depending on MRI results - cervical collar removed at bedside - Activity: bedrest, okay to sit up to 30 degrees - Diet as tolerated - Pain control PRN per primary team - Please hold all anticoagulation/antiplatelet medications at this time - Okay for VTE prophylaxis Cervical collar: cleared by neurosurgery Activity orders: Bedrest, HOB >30 PT/OT: Not ordered, pt bedrest Wound care: 2 cm lac, wound care w/ bacitracin TID, dressing changes PRN by nursing staff Ppx: - GI: Home famotidine - VTE: Lovenox 30 mg BID L/T/D: Peripheral IVs Dispo: Trauma floor Patient staffed and discussed with in-house chief Dr. Goode and will be staffed with attending, Dr. Quach. Note to be updated with any changes. Lenore Abbasi DO Trauma Resident, PGY-1 11/02/23 5:54 AM I have seen and examined the patient with the resident, and I agree with the findings and plan of care as documented by the resident Alert, oriented CV RRR Lungs clear Abdomen soft Appreciate APM and vesna med teams recs Date of service:11/02/23 Kathryn Quach MD 11/05/2023 7:49 PM * Sydnee Abebe - 11/01/2023 6:55 PM CDT responded to lvl 2 trauma: 83F/ground level fall. Brought in from [place], [place] by [facility]. PerEMS, no family on scene but pt's son is aware and on his way to [facility]. T05/T05 documented in this encounter H&P Notes * Kathryn Quach MD - 11/01/2023 6:55 PM CDT TRAUMA ADMISSION HISTORY & PHYSICAL Date of Admission:11/01/2023 Date of Consult:11/01/20231854 Time Seen: 1854 arrival Activation level: 2 Trauma Team: Attending: Dr. Quach Senior: Dr. Leonarda Ortiz Evan: Dr. Ferrari PRE-HOSPITAL COURSE: Pre Hospital (mechanism, treatments, clinical course): Description of mechanism: ground level fall, witnessed Trauma occurred at ---- approx. 5pm Clinical course of patient: Patient arrived by Ambulance from scene Intubated in the field: No Blood given prior to arrival: None IV fluids given: Yes tourniquet placed in the field: No Medications administered prior to arrival: None Lines present prior to arrival: HOSPITAL COURSE (chief complaint): Promise Fierro is an 83 yr old F w/ PMHx of HTN, PE, HLD who was brought in by EMS from [facility] as level 2 trauma after ground level fall. Per EMS, patient was using her walker when she hit the curb on the sidewalk and fell to the ground hitting her head w/ +LOC. Patient reports talking to neighbors after regaining consciousness. Patient AOx4 on EMS arrival and given LR in route to hospital.On admission to [facility] patient complains of headache to the back of head and L chest tenderness and nausea, is hypertensive w/ systolic in 220's. Complains of Pain: Yes, back of the head and L chest. Products & Meds: [facility] Crystalloid Boluses: Yes, 0.9% NaCl 1L bolus Blood Products: None Other: TXA: No Tdap: yes Antibiotics: None Procedures: Laceration repair of posterior scalp PAST MEDICAL HISTORY Allergies: DOMO inhibitors- Cough Clarithromycin Statins Ezetimibe Medications: Eliquis 5 mg 2x daily Famotidine 20 mg 2x daily Furosemide 40 mg morning Hydrocodone-acetaminophen 10/325 daily Irbesartan 150 mg-morning Lumigan-nightly Metoprolol 100 mg-daily Paroxetine-20 mg daily potassium 10 mg daily Atorvastatin 40 mg daily Immunizations: up to date unknown Past Medical History: HTN HLD Arthritis DVT PE Esophageal stricture Hospitalized: no recent hospitalizations Surgical History: Colonoscopy Knee surgery Rotator cuff repair Upper esophageal endoscopy No past surgical history on file. Social: Social History Socioeconomic History Marital status: Spouse name: Not on file Number of children: Not on file Years of education: Not on file Highest education level: Not on file Occupational History Not on file Tobacco Use Smoking status: Never Smokeless tobacco: Not on file Substance and Sexual Activity Alcohol use: Yes Alcohol/week: 1.0 standard drink of alcohol Types: 1 Alcoholic drink(s) per week Comment: at weddings Drug use: Not on file Sexual activity: Not on file Other Topics Concern Not on file Social History Narrative Not on file Social Determinants of Health Financial Resource Strain: Not on file Food Insecurity: Not on file Transportation Needs: Not on file Stress: Not on file Housing Stability: Not on file - Alcohol: Yes - Drug use: Never Last Meal: 11:00 am Last menstrual Period: post-menopausal No family history on file. REVIEW OF SYSTEMS: Constitutional: Negative for fever or malaise. Eyes: Negative for eye pain, glasses or contacts Ears, nose, mouth, and throat: Negative for pain, discharge, or soreness. Respiratory: Negative for shortness of breath, cough Chest: Pos for pain in left ribs Cardiovascular: Negative for palpitations, chest pain, dyspnea on exertion Gastrointestinal: Negative for heartburn or reflux, constipation, diarrhea, poor appetite, abdominal pain, vomiting. Positive for nausea. Genitourinary:Negative for dysuria Skin: Negative for ulcers or rashes. Hematologic/lymphatic: Negative excessive bleeding or bruising. Neurological: Negative for dizziness or confusion, positive for pain in back of the head. Behavioral/Psych: Negative for anxiety or pychosis. Endocrine: No excessive thirst or urination The rest of the review of systems was negative. PRIMARY SURVEY Airway: patent Breathing: clear to auscultation bilaterally Circulation: intact Cap Refill: <2 seconds Skin: normal Skin Color: appropriate Pulses Carotid: 2+ Radial: 2+ Femoral: 2+ Dorsalis Pedis: 2+ Posterior Tibial: 2+ Disabililty GCS15 Verbal5 (Converses/Oriented), Motor6 (Obeys commands), Eyes4 Points (Spontaneous) Pupils: normal, equal and reactive to light SECONDARY SURVEY Blood pressure 178/68, pulse 64, temperature 97.2 ??F (36.2 ??C), temperature source Temporal, resp. rate 13, height 1.6 m (5' 3 ), weight 113.4 kg (250 lb), SpO2 95%. Temp Av.2 ??F (36.2 ??C) Min: 97.2 ??F (36.2 ??C) Max: 97.2 ??F (36.2 ??C), Pulse Av.3 Min: 62 Max: 64, Resp Av.7 Min: 13 Max: 16, BP Min: 178/68 Max: 211/91 No intake or output data in the 24 hours ending 11/01/236 Physical Exam Head: 2 cm laceration in posterior scalp, hemostatic, normocephalic Eyes: PERRLA, no conjunctival hemorrhage Ears: Tympanic membranes clear, no hemotympanum Nose: No evidence of trauma, no septal hematoma Oropharynx: pink, atraumatic, no malocclusion Maxillofacial: Face stable, not TTP Neck: no midline tenderness, no step-off Cervical Spine: Not TTP, no step offs, no crepitus Lungs: clear to auscultation with equal bilateral breath sounds Chest: normal thoracic cage without crepitus, deformity, tender to palpation over left side CV: RRR, no murmurs, rubs, or gallops Abdomen/Pelvis: SNTND, normoactive bowel sounds. Pelvis stable. : Normal female external genitalia Rectal Exam: deferred RU extremity: capillary refill (<2 seconds), pulses 2+ and equal, 3 cm bruise in L posterior leg. VLADIMIR extremity: capillary refill (<2 seconds), pulses 2+ and equal, no evidence of bruises or lacerations RL extremity: capillary refill (<2 seconds), pulses 2+ and equal, no evidence of bruises or lacerations. LL extremity: normal range of passive motion without pain, no evidence of bruises or lacerations. Back (Thoracic and Lumbar Spines): Not TTP, no step offs, no crepitus Skin: No abrasions or rashes. 2 cm laceration in posterior scalp. 3 cm bruise in R pos leg. SECONDARY DATA ED Trauma FAST Ultrasound Deferred for CT scans ECG: pending Data Review: Recent Labs Component Name 11/01/231955 WBC 6.8 HGB 12.8 HCT 38.8 MCV 102.1* Recent Labs Component Name 11/01/231955 CL 107 CO2 21* BUN 20 CREATININE 0.62 CALCIUM 8.7 No results for input(s): PROT , ALB , TBILI , DBILI , AST , ALT , ALKPHOS , VILMA , LIPASE in the last 01188 hours. Recent Labs Component Name 11/01/231955 INR 1.3 EtOH: <0.010 Imaging: CXR: Hazy appearance of the bilateral lungs may be secondary to atelectasis versus multifocal infection. No pneumothorax. The heart and mediastinum appear enlarged which may be due to portable technique however cannot rule out vascular injury in the setting of trauma. This will be better present CT chest abdomen pelvis. Calcified calcification of the aortic arch. No displaced fractures identified. Rim-like calcification seen overlapping the right chest tube, likely calcified breast implant. XR PELVIS 1 OR 2VW Result Date: 11/01/2023 IMPRESSION: Lucency to the right femoral neck may represent a fracture. This will be better characterized on CT chest abdomen pelvis. Report dictated by Sarah Keith Dr, MD (residential mental health worker). I, Loreto Bone MD have personally reviewed and interpreted this examination/study. > Interpreting Provider: Loreto Bone MD on 11/01/2023 9:[address] Head: NAICH CT Facial Bones: No acute fracture CT C Spine: NAOI CT T Spine: Age-indeterminate compression fracture of the T5 vertebral body with approximately 40% height loss. CT L Spine: NAOI CT Chest/Abd/Pelvis: Nondisplaced anterolateral fractures of left ribs 5-9. Age-indeterminate, likely chronic, compression deformity of T5 vertebral body with mild height loss. Otherwise, no acute chest, abdomen, or pelvis. Additional X-rays or Imaging None Consultants: Service: Neurosurgery Name of Resident: n/a Time of Consult: n/a ASSESSMENT: Promise Fierro is an 83 yr old F who presents to [facility] as level 2 trauma following unwitnessed ground level fall an hit in head w/ LOC. PLAN: Injuries: 2 cm laceration to posterior scalp Left rib 5-9 fractures Age indeterminate T5 vertebral body compression deformity Incidental findings: Final reads pending Neuro: - No acute intracranial injury #acute traumatic pain - Multimodal pain control: Scheduled tylenol, oxycodone, Urine drug screen: Pending, not yet collected EtOH counseling: n/a #anxiety Home meds restarted: Paroxetine-20 mg daily HEENT: - No acute issues Cardiac: #Afib #hypertension - Continuous cardiac monitoring in ED - Telemetry upon admission: Not ordered - not indicated - MAP goal >65 Home medications resumed: Metoprolol, Atorvastatin Hydrocodone-acetaminophen 10/325 daily Home medications held: Irbesartan 150 mg-morning, eliquis, Furosemide Pulm: #L rib 5-9 fractures - Incentive spirometry: Initial IS: 900 - Continuous pulse oximetry - CXR: Hazy, possible atelectasis, no acute findings - Repeat CXR tomorrow morning - Pulmonary toilet - IS 10/hr - Bronchial hygiene - Respiratory therapy consult - Multimodal pain control GI: No acute issues. Diet: general diet - Daily BMP - Replace lytes PRN Home medication: Famotidine 20 mg 2x daily /Renal: No acute issues - UA: not indicated Heme: No acute issues - Daily CBC ID: No acute issues - Antibiotics: None indicated - Tdap yes Endo: #Hypothyroidism - Home medication 75 mcg daily MSK: #T5 compression deformity - Neurology consult, recs below - Continue to monitor neuro exam q4 hours - Please obtain MRI thoracic spine wo contrast for further characterization of injury - Discussed possible bracing vs kyphoplasty depending on MRI results - cervical collar removed at bedside - Activity: bedrest, okay to sit up to 30 degrees - Diet as tolerated - Pain control PRN per primary team - Please hold all anticoagulation/antiplatelet medications at this time - Okay for VTE prophylaxis Cervical collar: cleared by neurosurgery Activity orders: Bedrest, HOB >30 PT/OT: Not ordered, pt bedrest Wound care: 2 cm lac, wound care w/ bacitracin TID, dressing changes PRN by nursing staff Ppx: - GI: Home famotidine - VTE: Lovenox 30 mg BID L/T/D: Peripheral IVs Dispo: Trauma floor Taurus Ferrari MD [facility] November 01, 2023 10:16 PM Patient seen 8 pm Level 2 activation Hemodynamically stable I have seen and examined the patient with the resident, and I agree with the findings and plan of care as documented by the resident Incentive spirometry for rib fractures; APM consult Neuro spine consult for T spine compression; MRI pending Local wound care Date of service:11/01/23 Kathryn Quach MD 11/02/2023 6:37 AM documented in this encounter Procedure Notes * Taurus Ferrari MD - 11/02/2023 1:47 AM CDT Trauma Surgery Procedure Note Procedure: Posterior Scalp Laceration Repair, 2cm Pre-operative Diagnosis: Traumatic laceration to posterior scalp, 2cm Post-operative Diagnosis: Same Surgeon: Taurus Ferrari MD Assistants: Ravinder Lou MS3 Anesthesia: Local anesthesia 1% buffered lidocaine Indication for Procedure: Promise Fierro is a 83 year old female with traumatic laceration to posterior scalp. Closure was indicated. Verbal consent was obtained. Procedure Details: The posterior scalp was copiously irrigated using saline solution until clear. The laceration was found to be 2 cm. The area was prepped and draped in the usual fashion using betadine. The skin was anesthetized with 5m 1% lidocaine. The skin edges did not require revision. The laceration was closedin 1 layer using 3-0 chromic gut suture for the superficial layer. Hemostasis was adequate. The wound was dressed with bacitracin. The laceration was closed in 1 layer using 3-0 chromic gut suture for the superficial layer. Dr. Quach was available for all critical portions of the procedure Findings: 2 cm laceration to the posterior scalp with appropriate approximation of wound edges post-procedure. Estimated Blood Loss: <1cc Complications: None; patient tolerated the procedure well. Disposition: Trauma floor Condition: stable Taurus Ferrari MD 11/02/2023 1:47 AM documented in this encounter Consult Notes * Harrison Silva MD - 11/06/2023 9:51 AM CDTAssociated Order(s): IP CONSULT TO REHAB ORTHO PHYSICIAN Images from the original note were not included. Patient Name: Promise Fierro Medical Record Number (MRN): [id number] : 1940 Today's Date: 11/06/23 Admission Date: 11/01/2023 Ortho Trauma Rehabilitation Consult Active issues lower extremity edema, resuming home dose of Lasix today per primary team Purpose for induration of UNIT MANAGER CONVENIENCE STORES use Need for placement in inpatient rehab secondary to loss of independence, increased debility, need for medical management of edema, fluctuating blood pressure during rehabilitation Reason for Consultation: PM&R Recommendations for care optimization and discharge planning Chief Complaint: I want to be able to do things for myself but this brace makes it difficult HPI The following history was obtained from the patient/caregiver, the available medical record, and discussion with the primary team. Per the record, this patient is a 83 year old female with a past medical history that includes hypertension, hyperlipidemia, hypothyroidism, bilateral lower extremity edema, DVT/PE on Eliquis who presented on who was admitted on 11/01/2023 for polytrauma secondary to ground-level fall. Hospital Course: Per the record, on admission, patient was found to have: Patient Active Problem List: Allergies Trauma Other closed fracture of thoracic vertebra, unspecified thoracic vertebral level, initial encounter([facility]) Closed fracture of multiple ribs of left side, initial encounter Acute traumatic pain Scalp laceration On admission patient had posterior scalp laceration repaired, fluctuating hypertension requiring metoprolol, losartan, new prescription for amlodipine. Lasix currently being held for geriatric medicine due to near syncopal episodes. Medical history prior to these events includes: Past Medical History: Diagnosis Date Arthritis DVT (deep venous thrombosis) ([facility]) Esophageal stricture GERD (gastroesophageal reflux disease) HLD (hyperlipidemia) Hypertension Hypothyroidism Nontoxic single thyroid nodule Other pulmonary embolism without acute cor pulmonale ([facility]) This service was consulted for assistance with evaluation and placement. Subjective: When this provider arrived, patient was sitting upright in her bedside chair wearing her CT LSO. Patient was coherent, oriented, pleasant. Reported all recent events accurately. Reported that she believes that she needed the additional antihypertensives secondary to her pain, which is significantly improved. Reports that normally her Lasix and her regimen of leg elevation keep her lower extremities more mobile and less swollen. Reports that due to her CT LSO she is unable to place her compression stockings, unable to walk without assistance. Has no one living with her at home. Reports she lives in an accessible house reports that when she is more mobile she will be able to function with theaid of a workers' compensation hearings officer, which she already has a few hours a day.. Reports eating, eating, adequate. Denies chest pain, shortness of breath above baseline. Assessment This is a previously modified independent woman who has suffered polytrauma including rib fracturesand a ground-level fall at home. Patient continues to be unsteady with ambulation, requiring 1 person min assist for ambulation due to pain, weakness, increased swelling in lower extremities, and maxassist for other activities of daily living, who requires intensive therapies and medical supervision in order to safely return to prior level of function. Plan # Medical Plan: -Polytrauma secondary to ground-level fall: Recommend working with primary team to assess ongoing need for UNIT MANAGER [employer]ENCE [employer]ORES. -Nonopioid pain control, mobilization in a graduated, safe, appropriate fashion -Bilateral lower extremity edema. Baseline for this patient, significantly worse due to numerous factors including diuretics being held, secondary to near syncopal events, sitting in chair without legs elevated, more limited mobility -- Mobility may be greatly assisted by resuming some dose of Lasix -- Bilateral lower extremity CARLOS hose should be applied as soon as patient is able to tolerate them, worn whenever patient is awake -May wish to consider SCDs while patient is working on improving her edema, before CARLOS hose will beable to be placed -Hypertension. Elevated above her home dose. Patient wishes to return to previous regimen, but willhave to be monitored in an ongoing fashion due to consistently elevated hypertension on this admission -Hypothyroidism. Medications started. History of DVT on Eliquis. History of fall: Patient appears to have full -Orientation. Neuropsych eval may be considered if more subtle deficits arise in the course of rehab - GI prophylaxis: Per primary team -T5 spine fracture of indeterminate age, pain management, wearing of appropriate brace, follow-up with orthopedics as needed # Functional Impairments: Patient has significant impairments in function including with ambulation, which she cannot do without at least minimal assistance due to weakness, lower extremity edema, pain; has limitations in ADLs including dressing, bathing and requires set up assistance for feeding secondary to mobility limitations -Recommend sitting up out of bed for at least 3 hours at a time, BID. Patient should have the physical endurance and arousal level to tolerate this level of activity in order to be considered for acute rehabilitation. - All patients lacking the physical strength or cognitive capacity to utilize call light must be equipped with a mouth-operated call light placed within the reach for safety, communication, and comfort. Soft touch call light may be used instead if patient has physical and cognitive capacity to use it. # Pain: Patient reports that current pain control is adequate -Continue to monitor and address accordingly as pain may limit ability to participate with therapies. -Use minimum amount of narcotics to achieve effective pain relief. -Please consider use of modalities (ie. Ice, heat), and/or topical medications (ie. Lidocaine cream/aspercreme) to achieve pain relief. # Sleep: Patient reports that sleep is adequate # Skin Care/Hygiene: Patient reports she is spending 30 minutes a day out of bed, attempting to elevate her legs, in order to decrease edema -Recommend pressure relief when out of bed, with patient education to perform pressure relief every30 minutes. -Recommend turning patient while in bed every 2 hours to prevent development of pressure sores/ulcers. -Recommend adequate nutritional intake to provide for adequate healing. # FEN/GI: please ensure patient is receiving multiple high-protein supplements per day, vitamin C, zinc to promote wound healing -Please ensure adequate nutrition and consider nutrition consult as indicated # DVT PPX: -Per primary team. # DISPOSITION RECOMMENDATIONS: Recommend disposition for this patient is to IRF. Patient is recommended to have physical and Occupational Therapy, possibly cognitive therapy -General Therapy/Rehabilitation-Related Recommendations: -Recommend patient be sitting upright 3 hours BID on an appropriate pressure cushion (waffle or Roho), performing adequate pressure relief manual. If ischial or sacral pressure wounds exist, please limit sitting to 30 minutes at a time with pressure relief every 5-10 minutes. If patient cannot perform pressure relief, please place patient in a chair that can provide [id number] offloading. -Continue to have patient evaluated by PT, OT, and CORRECTIONAL OFFICER CAPTAIN while inpatient and schedule outpatient follow up with the appropriate services. -Schedule this patient for a follow-up visit with their primary care physician within two weeks of discharge from the hospital, SNF, or IRF. If patient does not have a PMD, please schedule with the bridge clinic by calling or placing a discharge order Amb ref to bridge clinic. Thank you for this consult and for your consideration of the above recommendations. I may be reached at [phone] or [email or web address] M-F [id number]. Dr. Harrison Silva, Ortho Trauma Rehabilitation Clerical Support Specialist Level of Service Note: timespent: 110 minutes in the care of this patient today including extensivecoordination with primary team regarding discharge and disposition These notes are dictated by dragon naturally speaking. Errors in dictation are always possible. Please contact the provider with any questions The best way to reach me is through Secure Chat. <<<<<< Meds, Labs, PT, OT, CORRECTIONAL OFFICER CAPTAIN, ROS, PE are below >>>>> Review of Systems REVIEW OF SYSTEMS A 14 point ROS was obtained and was is negative except for the following: Challenges with mobility,desire to discharge to rehab Physical Exam General: Alert, pleasant, NAD, well-nourished, well-developed Psychiatric: appropriate HEENT: Well-approximated suture closure of laceration on posterior head, moist Respiratory: breathing comfortably on room air slightly restricted by presence of UNIT MANAGER CON[employer]IENCE STORES, Cardiovascular: lower extremity edema Present Abdomen: Soft, non-tender, non-distended Extremities: Profoundly edematous lower extremities Skin: rashes, scars, erythema, or discharge is/are absent on arms or legs Neurologic: Mental status: AAOx4, speech fluent, language intact, appropriate insight and judgment, speech slightly pressured Cognition: naming intact, repetition intact Cranial nerves: EOMI without nystagmus, PERRLA, face symmetric, normal facial sensation, normal tongue movements and shoulder shrug Strength: 4-5/5 throughout UE and LE, symmetrical Sensation: intact to light touch in UE and LE dermatomes Reflexes: 2+ symmetric throughout, no Tolentino???s noted, toes down-going bilaterally Gait: ambulate: ambulated slowly with some difficulty with balance Filed Vitals: 11/06/23 0024 11/06/23 0427 11/06/23 0746 11/06/23 0930 BP: 175/54 147/48 150/59 152/54 Pulse: 66 60 63 67 Resp: 18 18 16 Temp: 97.9 ??F (36.6 ??C) 97.5 ??F (36.4 ??C) 98.4 ??F (36.9 ??C) TempSrc: Oral SpO2: 95% 94% 92% Weight: Height: MEDICATIONS FOR CURRENT ENCOUNTER: SCHEDULED MEDICATIONS: 0.9% NaCl injection 3 mL, Intracatheter, q8h 0.9% NaCl injection 3 mL, Intracatheter, q8h amLODIPine (Norvasc) tablet 5 mg, Oral, QDAY apixaban (Eliquis) tablet 5 mg, Oral, BID atorvastatin (Lipitor) tablet 40 mg, Oral, QDAY bacitracin topical ointment, Topical, TID famotidine (Pepcid) tablet 20 mg, Oral, BID HYDROcodone-acetaminophen ([place]) 10-325 MG tablet 1 tablet, Oral, TID latanoprost (Xalatan) 0.005 % ophthalmic solution 1 drop, Each Eye, AT BEDTIME levothyroxine (Synthroid) tablet 75 mcg, Oral, QDAY AT 0600 lidocaine (Lidoderm) 5 % patch 2 patch, Transdermal, q24h losartan (Cozaar) tablet 100 mg, Oral, QDAY melatonin tablet 3 mg, Oral, AT BEDTIME metoprolol succinate XL 24hr (Toprol XL) tablet 100 mg, Oral, QDAY nystatin (Mycostatin) powder, Topical, BID PARoxetine (Paxil) tablet 20 mg, Oral, QDAY polyethylene glycol 3350 (Miralax) packet 17 g, Oral, QDAY senna (Senokot) tablet 8.6 mg, Oral, QDAY CONTINUOUS MEDICATIONS: PRN MEDICATIONS: Or Or 0.9% NaCl injection 1-10 mL, Intracatheter, PRN 0.9% NaCl injection 1-10 mL, Intracatheter, PRN albuterol-ipratropium (Duo-Neb) nebulizer solution 3 mL, Inhalation, q6h PRN ondansetron (disintegrating) (Zofran ODT) tablet 4 mg, Oral, q6h PRN ondansetron (Zofran) injection 4 mg, Intravenous, q6h PRN oxyCODONE (immediate release) (Roxicodone) tablet 2.5 mg, Oral, q4h PRN oxyCODONE (immediate release) (Roxicodone) tablet 5 mg, Oral, q4h PRN Home Medications : amLODIPine (Norvasc) 5 MG tablet, Take 1 (one) tablet by mouth once daily, 11/05/23 Apixaban (Eliquis DVT/PE Starter Pack) 5 MG tablet, Take by mouth 2 times daily, atorvastatin (Lipitor) 40 MG tablet, Take 1 (one) tablet by mouth once daily, bacitracin ointment, Apply to affected area 3 times daily, 11/05/23 bimatoprost (Lumigan) 0.03 % ophthalmic solution, 1 (one) drop at bedtime, famotidine (Pepcid) 20 MG tablet, Take by mouth 2 times daily, furosemide (Lasix) 40 MG tablet, Take 1 (one) tablet by mouth once daily Each morning, HYDROcodone-acetaminophen ([place]) 10-325 MG tablet, Take 1 (one) tablet by mouth 3 times daily, 11/05/23 irbesartan (Avapro) 150 MG tablet, Take 1 (one) tablet by mouth once daily Each morning, levothyroxine (Synthroid) 75 MCG tablet, Take 1 (one) tablet by mouth once daily, 11/06/23 lidocaine (Lidoderm) 5 % patch, Apply 2 (two) patches to skin every 24 hours Apply patch to most painful area and remove after 12 hours. May reapply a new patch 12 hours later., 11/05/23 metoprolol succinate XL 24hr (Toprol XL) 100 MG tablet, Take 1 (one) tablet by mouth once daily, nystatin (Mycostatin) 829362 UNIT/GM powder, Apply to affected area 2 times daily, 11/05/23 PARoxetine (Paxil) 20 MG tablet, Take 1 (one) tablet by mouth once daily, polyethylene glycol 3350 (Miralax) 17 g packet, Take 17 (seventeen) g by mouth once daily, 11/05/23 Allergies Allergen Reactions Domo Inhibitors Cough Cough Cough Clarithromycin Unknown Hmg-Coa-R Inhibitors Unknown Ezetimibe Unknown Past Medical History: Diagnosis Date Arthritis DVT (deep venous thrombosis) ([facility]) Esophageal stricture GERD (gastroesophageal reflux disease) HLD (hyperlipidemia) Hypertension Hypothyroidism Nontoxic single thyroid nodule Other pulmonary embolism without acute cor pulmonale ([facility]) Past Surgical History: Procedure Laterality Date Appendectomy Back Surgery Cholecystectomy COLONOSCOPY ENDOSCOPY, UPPER Hysterectomy Knee Replacement Bilateral Rotator Cuff Repair Tonsillectomy Social History: Tobacco: Tobacco Use: Low Risk (11/03/2023) Patient History Smoking Tobacco Use: Never Smokeless Tobacco Use: Never Passive Exposure: Not on file Alcohol: Alcohol Use: Not At Risk (11/03/2023) AUDIT-C Frequency of Alcohol Consumption: Never Average Number of Drinks: Patient does not drink Frequency of Binge Drinking: Never Illicit Drugs: Social History Substance and Sexual Activity Drug Use Never Living Situation: Lives alone in an accessible home, has a workers' compensation hearings officer for a couple of hours a dayas needed -Contact: Extended Emergency Contact Information Primary Emergency Contact: harlan fierro Relation: Son Middleware Architect needed? No Pre-hospitalization Function IND Current Functional Status MaxA-SBA Current Therapy Evaluations: PT 11/04 [facility] Physical Medicine and Rehabilitation Physical Therapy Progress Note Patient: Promise Fierro Med Record Number: [id number] Date of : 1940 Age: [age] year old PPE worn by staff: gloves PPE worn by patient: gown - patient, clean;socks - clean Tech: no Recommendations: Discharge PT Discharge Recommendations: Patient would benefit from intensive 3-hour multidisciplinary therapy This recommendation is made due to ongoing intensive PT functional needs: ability to actively participate in intensive therapy 3 hours/day, 5 days a week;patient has the need for more than one skilled therapy service;motivated to participate in therapy;not at baseline due to impaired ability to complete ADL's;functional mobility is significantly below baseline SUBJECTIVE: Subjective: Agreeable to therapy, motivated Pain Assessment: Pain Location #1 Pain Scale/Observation: Numeric (0-10) Pain Rating Score #1: 0 Sedation Level #1: 1-Awake and alert Pain Location : (Ribs) Pain Intervention(s): Declined Intervention PRECAUTIONS: Weight Bearing Status: (no restrictions noted) Activity Level: Activity as Tolerated Spine Precautions: Yes Spine Precautions: (UNIT MANAGER CONVENIENCE STORES) OBJECTIVE: At start of therapy session, patient found in patient bedside chair and with chair alarm on General Appearance: NAD; UNIT MANAGER CON[employer] STORES donned LDAs: IV's: Peripheral line Vitals: (*Assess the 3 levels of oxygen saturations both for room air and 02 unless rest on room air is 88% or less). Rest BP: 149/61 HR: 61 Sp02 Sp02 Room Air L O2 Post Activity BP: HR: 77 Sp02 Sp02 96% L O2 Room Air Observations: no dizziness or lightheadedness reported; perspiration with exercise Mental Status/Cognition: Level of Consciousness-Adult: Alert Orientation Level: Oriented X4 Cognition: Follows one step commands;Safety awareness-decreased Mobility: A gait belt and non-slip socks were used for all out of bed activity this date. Bed Mobility: Supine to Sit: Activity Does Not Occur (starts and ends in bedside chair) Sit to Supine: Activity Does Not Occur Transfers: Sit to Stand: Stand By Assist;Minimal Assistance Stand to Sit: Stand By Assist;Minimal Assistance Type of Transfer: (ambulatory) Transfer Device: Gait belt;Walker-2 Wheeled Comments: Sit to stand trials without AD and without BUE use unstable requiring physical assistance. Gait: Weight Bearing Status: (no restrictions noted) Distance Ambulated (ft): 80 FEET (2 standing rest breaks) Ambulation: Assistive Device: Gait Belt;Walker-Bariatric Ambulation: Level of Assistance: Minimum Assistance;Stand By Assist;Requires Verbal Cues for Technique (cues for upright posture) Ambulation: Gait Deviations: Step Length - Decreased;Increased Trunk Flexion;Increased Weight Bearing through Upper Extremity Balance: Balance Scales/Tests Used: Sitting: Static/Dynamic;Standing: Static/Dynamic Sitting - Static: Good - Sitting - Dynamic: Fair + Standing - Static: Fair Standing - Dynamic: Fair;With Both Upper Extremity's Support ACTIVITY TOLERANCE: Patient's activity tolerance: fair plus TREATMENT/INTERVENTIONS: ROM , strengthening exercises, transfer training, gait training, balance activities, and monitoring of vitals BLE AROM exercises, 10 reps x 2 sets - hip abduction - hip flexion - hip adduction against pillow, 3 sec hold - long arc quads - ankle PF/DF 5 times sit to stand AM-PAC 6 Clicks Mobility Raw Score:: 17 EDUCATION: While performing PT, Patient was instructed in:functional mobility training, energy conservation, safety awareness/fall precautions , discharge planning, use of call light Presented to patient who demonstrates Good understanding of instructions given. ASSESSMENT: Patient would benefit from additional Physical Therapy sessions to achieve the following functionalgoals to enhance independence. Short Term Goals: Goal Formation With patient Patient will perform bed mobility with stand by assist and while maintaining back safety precautions Patient will tolerate standing for further mobility assessment. - met Patient will tolerate edge of bed >5 minutes with vitals WNL. Patient will verbalize adequate understanding of spinal precautions. Patient will transfer sit to stand with stand by assist - added 11/03 Patient will ambulate 150 feet with stand by assist and with appropriate AD - added 11/03 Shelter Goal(s): Patient to discharge to appropriate next level of inpatient care. INFORMED CONSENT TO TREATMENT: Plan of care including recommended therapy, goals and frequency, discussed with patient who understands and agrees to proceed. Equipment Issued: none Plan: Patient continues to benefit from skilled therapy services., Continue with goals as established. If patient is disch OT 11/05 [facility] Physical Medicine and Rehabilitation Occupational Therapy Progress Note Patient: Promise Fierro [facility] Record Number: [id number] Date of : 1940 Age: [age] year old PPE worn by staff: gloves;mask - procedural Recommendations: OT Discharge Recommendations: Patient would benefit from intensive 3-hour multidisciplinary therapy This recommendation is made due to ongoing intensive OT functional needs: ability to actively participate in intensive therapy 3 hours/day, 5 days a week;motivated to participate in therapy;likely toreturn to the community at discharge with support system;patient has the ability to progress and dem onstrate measurable gains as a result of skilled therapy Nurse contacted regarding patient status and/or discharge plan. Activity Level: as tolerated PRECAUTIONS: Spine Precautions: No bending,lifting, no twisting (AAT in UNIT MANAGER CONVENIENCE STORES brace) SUBJECTIVE: Subjective: I'm just waiting on my breakfast. Pain Assessment: Pain Location #1 Pain Scale/Observation: Numeric (0-10) Pain Rating Score #1: 0 Sedation Level #1: 1-Awake and alert OBJECTIVE: At start of therapy session, patient found in patient bedside chair and with chair alarm on General Appearance: seated in chair in NAD with UNIT MANAGER CON[employer]IENCE STORES brace in place LDA: IV's: Peripheral line and Telemetry Mental Status/Cognition: Level of Consciousness-Adult: Alert Orientation Level: Oriented X4 Cognition: Follows one step commands;Safety awareness-decreased Following Commands: Follows one step commands with repetition/cues (2/2 slightly [place]) Safety Judgement: Decreased awareness of need for safety Awareness of Errors: Decreased awareness of deficits Mobility: a gait belt and non-slip socks were used for all out of bed activity this date. Bed Mobility: Supine to Sit: Activity Does Not Occur (up in chair upon OT arrival) Transfers: Sit to Stand: Stand By Assist Stand to Sit: Minimal Assistance (for slow descent into chair) Transfer Device: Gait belt;Walker-2 Wheeled Functional Ambulation: Patient ambulated functional household distance with SBA/min assist using w/w. Min cues for safety/upright posture. Balance: Sitting - Static: Good - Sitting - Dynamic: Fair + Standing - Static: Fair Standing - Dynamic: Fair;With Both Upper Extremity's Support Activities of Daily Living: Oral Facial Hygiene: Stand By Assist (comb hair) Lower Body Dressing: Maximal Assistance (don/doff socks seated in chair) ACTIVITY TOLERANCE: Patient's activity tolerance: fair. AM-PAC 6 Clicks Daily Activity Raw Score:: 17 TREATMENT/INTERVENTIONS: ADL training Functional transfer training Endurance training Safety awareness HEP training EDUCATION: While performing OT, Patient was instructed in:functional mobility training, self-care training, safety awareness/fall precautions , home exercise program, spine precautions , discharge planning, use of call light Presented to patient who demonstrates Fair understanding of instructions given. INFORMED CONSENT TO TREATMENT: Plan of care including recommended therapy, goals and frequency, discussed with patient who understands and agrees to proceed. ASSESSMENT: Patient continues to benefit from skilled Occupational Therapy to achieve the following functional goals. Short Term Goals: Goal Formation With patient Patient will perform lower extremity dressing with stand by assist Patient will perform supine to/from sit with stand by assist Patient will demonstrate good understanding of spine precautions Shelter Goal(s): Patient to discharge to appropriate next level of inpatient care. Plan: Patient continues to benefit from skilled therapy services., Continue with goals as established. If patient is discharged from the facility, this note serves as a discharge summary if further occupational therapy visits did not occur. Refer to filed flowsheet for further details. Following therapy session, patient left in patient bedside chair, with waffle seat cushion in place, with chair alarm on, with call light within reach, with RNMelissa aware, with therapy cues visible on white board. Labs: CBC Recent Labs Component Name 11/04/23 0156 WBC 6.2 HGB 11.7* HCT 32.7* PLTCOUNT 205 basic metabolic panel Recent Labs Component Name 11/04/23 0156 11/03/23 0240 11/02/23 0711 POTASSIUM 3.7 3.7 4.5 CO2 24 27 24 BUN 11 12 14 CREATININE 0.60 0.60 0.54* EGFR 89* 89* >90 GLUCOSE 103 104 98 CALCIUM 8.8 8.7 9.0 Imaging: EXAM: CT HEAD WO CONTRAST, CT FACIAL BONES WO CONTRAST, CT CERVICAL SPINE WO CONTRAST, CT THORACIC SPINE WO CONTRAST, CT LUMBAR SPINE WO CONTRAST, DATE/TIME OF EXAM: 11/01/2023 7:48 PM, LOCATION: [facility] HISTORY: Trauma ADDITIONAL CLINICAL INFORMATION: Ordering Provider [...] dependent subsegmental atelectasis of the lung apices. Kyrj-ut-tokyjwjv calcific atherosclerosis of the carotid bulbs and moderate calcific atherosclerosis of the common carotid arteries. Multiple calcified mediastinal lymph nodes that is suggestive of prior healed granulomatous disease. THORACIC SPINE: ALIGNMENT: Mild kyphosis centered at the T5 level and xnso-fq-wcnmlzzn levoconvex curvature of the upper thoracic spine without significant listhesis. No traumatic malalignment. BONES: Age-indeterminate compression fracture deformity of the T5 vertebral body superior endplate associated with a thin sclerotic line and with approximately 30% height loss anteriorly, which may represent an rlspr-iy-vkgjgdjk microtrabecular fracture. Age-indeterminate compression fracture deformity of the T6 vertebral body superior endplate associated with a thin sclerotic line and with approximately 30% height loss centrally, which may represent an juhlx-jy-wmmgnnrn microtrabecular fracture. Chronic-appearing jjspxyi-xz-gqwk height loss remaining thoracic vertebral bodies. No retropulsion at any level. Osseous structures are markedly demineralized. DISCS: Multilevel mild disc space narrowing. DEGENERATIVE CHANGES: Overall uhng-um-xgetlrce multilevel degenerative changes. SPINAL CANAL/NEUROFORAMEN: No significant spinal canal stenosis. High-grade neuroforaminal narrowing at the right T2-T3 through T5-T6 levels and left T10-T11 level in addition to hjsn-js-khzenzux neuroforaminal narrowing elsewhere. SOFT TISSUES: Visualized soft tissues are normal. OTHER: Dependent atelectasis of the lungs bilaterally. Mildly tortuous thoracic aorta with womatvez-by-zwohpz calcific atherosclerosis. Multiple calcified mediastinal lymph nodes [...] phenomena at all levels. DEGENERATIVE CHANGES: Overall hgkbqpkt-ij-eqwtyp multilevel degenerative change, characterized by varying degrees of posterior disc bulges, ligamentum flavum hypertrophy, and facet arthropathy. SPINAL CANAL/NEUROFORAMEN: Multilevel spinal canal stenoses that is notably mild at the T12-L1 and L2-L3 levels, lnoacldw-pk-bwizju at the L3-L4 and L4-L5 levels, and [...] concurrently reported chest, abdomen, and pelvis CT. IMPRESSION: 1.No acute intracranial abnormality. 2.No acute maxillofacial fracture. 3.No acute fracture or traumatic malalignment of the cervical spine. 4.Age-indeterminate compression fracture deformities of the T5 and T6 vertebral bodies resulting in 30% height loss and associated with a thin sclerotic line through the superior endplates at these levels, which may represent guuak-ae-eapngtxv microtrabecular fractures. No evidence of retropulsion. Recommend [...] Elliott MD, PhD on 11/01/2023 10:38 PM * Magda Miller MD - 11/02/2023 12:55 PM CDTAssociated Order(s): IP CONSULT TO GERIATRIC MEDICINE [facility] Geriatric New Patient Consult Promise Fierro [id number] Age: [age] year old. Date of : 1940 Admission Date: 11/01/2023 Reason For Consult: Geriatric medicine evaluation in trauma Requesting Physician: Dr. Quach HPI: Promise Fierro is 83 year old female seen for fall while out walking using walker which slid off of sidewalk and she fell on uneven ground. She sustained scalp laceration/hematoma. No LOC cp sob orpalp before or after fall. She denies hx of prior falls in the last year but gets dizzy often with standing from her medications. She has chronic pain in her back and had hx of multiple epidural injections which helped initially but has taken [place] tid 10mg/325 mg due to no longer getting back injections. She indicates some numbness in her feet bilat. She has been in rehab before in [place], [place] when she had knee replacement surgery. Patient lives alone in a house with a paid caregiver. Son lives within 1 block. Patient has not been able to get out of her house recently due to decreasing mobility from back pain and leg swelling. CONFUSION ASSESSMENT METHOD 1) Acute onset or fluctuating course: No 2) Inattention: No 3) Disorganized thinking: No 4) Altered Level of Consciousness: No Level of Consciousness: alert Delirium is absent Comprehensive Geriatric Assessment: Falls: none prior Weight loss: trying to lose weight but not successful Orthostatic: dizzy frequently Incontinence: UI and occasionally FI Vision/Hearing Problems: glasses Medication Review: high risk medications for falls CAM Score : 0/4 PHQ9: denies depression sx but is on medication for a long time SLUMS: denies memory problems. SNAQ: 16/20 (14 or less indicates risk of weight loss) ADL: needs help with showering IADL: nedds help with groceries, cleaning, bills and medication setup FRAIL score :4 / 5 (3+ indicates frailty) SARC-F score: 8/10 (4+ indicates sarcopenia) Past Medical History: Past Medical History: Diagnosis Date Arthritis DVT (deep venous thrombosis) (HCC) Esophageal stricture GERD (gastroesophageal reflux disease) HLD (hyperlipidemia) Hypertension Hypothyroidism Nontoxic single thyroid nodule Other pulmonary embolism without acute cor pulmonale (HCC) Past Surgical History: Procedure Laterality Date Appendectomy Back Surgery Cholecystectomy COLONOSCOPY ENDOSCOPY, UPPER Hysterectomy Knee Replacement Bilateral Rotator Cuff Repair Tonsillectomy Home Medications: No current facility-administered medications on file prior to encounter. Current Outpatient Medications on File Prior to Encounter Medication Sig Dispense Refill Apixaban (Eliquis DVT/PE Starter Pack) 5 MG tablet Take by mouth 2 times daily atorvastatin (Lipitor) 40 MG tablet Take 1 (one) tablet by mouth once daily bimatoprost (Lumigan) 0.03 % ophthalmic solution 1 (one) drop at bedtime famotidine (Pepcid) 20 MG tablet Take by mouth 2 times daily furosemide (Lasix) 40 MG tablet Take 1 (one) tablet by mouth once daily Each morning irbesartan (Avapro) 150 MG tablet Take 1 (one) tablet by mouth once daily Each morning metoprolol succinate XL 24hr (Toprol XL) 100 MG tablet Take 1 (one) tablet by mouth once daily PARoxetine (Paxil) 20 MG tablet Take 1 (one) tablet by mouth once daily Pantoprazole 40 mg Melaonin at hs [place] 10.325 tid Lipitor 40 Thyroxine 75 mcg daily Allergies: Allergies Allergen Reactions Domo Inhibitors Cough Cough Cough Clarithromycin Unknown Hmg-Coa-R Inhibitors Unknown Ezetimibe Unknown Family History: Father cva, sister DM, mother uterine ca Social History: Social History Socioeconomic History Marital status: Spouse name: Not on file Number of children: 1 son Years of education: 2 years college 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, 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 Occupational History Not on file Tobacco Use Smoking status: Never Smokeless tobacco: Not on file Substance and Sexual Activity Alcohol use: Yes Alcohol/week: 1.0 standard drink of alcohol Types: 1 Alcoholic drink(s) per week Comment: at weddings Drug use: Never Sexual activity: Not on file Other Topics Concern Not on file Social History Narrative Not on file Review of Systems: Review of Systems - General ROS: negative for - weight gain or weight loss Psychological ROS: positive for - anxiety occasional, neg depression Ophthalmic ROS: negative for - eye pain or itchy eyes ENT ROS: negative for - nasal congestion or nasal discharge Respiratory ROS: negative for - cough or shortness of breath Cardiovascular ROS: negative for - chest pain or palpitations Gastrointestinal ROS: positive GERD and for - constipation Genito-Urinary ROS: positive for - incontinence and polyuria/nocturia Musculoskeletal ROS: positive for - gait disturbance, joint pain, and joint stiffness in back Neurological ROS: positive for - dizziness and numbness/tingling negative for - memory loss Dermatological ROS: negative for - pruritus+ skin fold rash Vitals: Vitals: 11/02/23 0826 11/02/23 1028 11/02/23 1147 11/02/23 1200 BP: 155/59 145/55 Pulse: 58 70 58 57 Resp: 19 13 23 18 Temp: SpO2: 96% 97% 95% Weight: Height: Estimated body mass index is 44.29 kg/m?? as calculated from the following: Height as of this encounter: 1.6 m (5' 3 ). Weight as of this encounter: 113.4 kg (250 lb). Weight: Wt Readings from Last 2 Encounters: 11/01/23 113.4 kg (250 lb) Physical Exam: Exam: alert, OX3, not anxious or confused PERRL,EOMI, conjuctiva clear OP moist without exudate or erythema Neck: no LAD, or masses Resp: CTA no rales/wheeze, equal BS CV: RRR No murmur or gallop Abd: + BS, obese, soft, NT/ND, no masses Ext: trace nonpitting edema in bilat LE to santiago DP palp bilat , no foot ulcer or callu Skin: redness in groin and breast fold rash Neuro: no tremor or UE dysmetria Muscskel: no synovitis in knees ankles, wrists or hands bilat Labs: Coagulation: Recent Labs Component Name 11/01/231955 PT 15.5* INR 1.3 Recent Labs Component Name 11/02/23 0711 11/01/231955 WBC 7.6 6.8 HGB 12.3 12.8 MCV 103.9* 102.1* INR - 1.3 Recent Labs Component Name 11/02/23 0711 11/01/231955 NA 141 138 CL 108* 107 CO2 24 21* BUN 14 20 CREATININE 0.54* 0.62 Imaging: CT HEAD WO CONTRAST - Head Trauma, CSF leak, mental status changes Result Date: 11/01/2023 IMPRESSION: 1.No acute intracranial abnormality. 2.No acute maxillofacial fracture. 3.No acute fracture or traumatic malalignment of the cervical spine. 4.Age-indeterminate compression fracture deformities of the T5 and T6 vertebral bodies resulting in 30% height loss and associated with a thin sclerotic line through the superior endplates at these levels, which may represent kymaz-pl-nagqcmbn microtrabecular fractures. No evidence of retropulsion. Recommend correlation with point tenderness atthese levels to assess for acuity. 5.No acute [...] Elliott MD, PhD on 11/01/2023 10:[address] FACIAL BONES WO CONTRAST - Facial trauma, fx suspected, blunt Result Date: 11/01/2023 IMPRESSION: 1.No acute intracranial abnormality. 2.No acute maxillofacial fracture. 3.No acute fracture or traumatic malalignment of the cervical spine. 4.Age-indeterminate compression fracture deformities of the T5 and T6 vertebral bodies resulting in 30% height loss and associated with a thin sclerotic line through the superior endplates at these levels, which may represent blmrc-su-bbfwziiz microtrabecular fractures. No evidence of retropulsion. Recommend correlation with point tenderness atthese levels to assess for acuity. 5.No acute [...] Elliott MD, PhD on 11/01/2023 10:[address] THORACIC SPINE WO CONTRAST - T/L-spine trauma, spine fracture Result Date: 11/01/2023 IMPRESSION: 1.No acute intracranial abnormality. 2.No acute maxillofacial fracture. 3.No acute fracture or traumatic malalignment of the cervical spine. 4.Age-indeterminate compression fracture deformities of the T5 and T6 vertebral bodies resulting in 30% height loss and associated with a thin sclerotic line through the superior endplates at these levels, which may represent crlvm-fa-ahaynlws microtrabecular fractures. No evidence of retropulsion. Recommend correlation with point tenderness atthese levels to assess for acuity. 5.No acute [...] Elliott MD, PhD on 11/01/2023 10:[address] LUMBAR SPINE WO CONTRAST - T/L-spine trauma, Spine fracture Result Date: 11/01/2023 IMPRESSION: 1.No acute intracranial abnormality. 2.No acute maxillofacial fracture. 3.No acute fracture or traumatic malalignment of the cervical spine. 4.Age-indeterminate compression fracture deformities of the T5 and T6 vertebral bodies resulting in 30% height loss and associated with a thin sclerotic line through the superior endplates at these levels, which may represent iytpz-im-vsfpoeym microtrabecular fractures. No evidence of retropulsion. Recommend correlation with point tenderness atthese levels to assess for acuity. 5.No acute [...] Elliott MD, PhD on 11/01/2023 10:[address] CERVICAL SPINE WO CONTRAST Result Date: 11/01/2023 IMPRESSION: 1.No acute intracranial abnormality. 2.No acute maxillofacial fracture. 3.No acute fracture or traumatic malalignment of the cervical spine. 4.Age-indeterminate compression fracture deformities of the T5 and T6 vertebral bodies resulting in 30% height loss and associated with a thin sclerotic line through the superior endplates at these levels, which may represent zzscl-dq-gbtbumix microtrabecular fractures. No evidence of retropulsion. Recommend correlation with point tenderness atthese levels to assess for acuity. 5.No acute [...] Elliott MD, PhD on 11/01/2023 10:[address] CHEST ABDOMEN PELVIS W CONT - Abdomen-pelvis trauma, blunt or penetrating Result Date: 11/01/2023 Impression: 1.Age-indeterminate, likely chronic, compression deformity of T5 vertebral body with mild height loss. Refer to dedicated spine CT. 2.Otherwise, no acute chest, abdomen, or pelvis. > Dictated by Paxton Whitley DO (residential mental health worker). Milad Jacques MD have personally reviewed andinterpreted this examination/study. > Interpreting Provider: Milad Mcnulty MD on 11/01/2023 10:30 P M XR PELVIS 1 OR 2VW Result Date: 11/01/2023 IMPRESSION: Lucency to the right femoral neck may represent a fracture. This will be better characterized on CT chest abdomen pelvis. Report dictated by Sarah Keith Dr, MD (residential mental health worker). Loreto Jacques MD have personally reviewed and interpreted this examination/study. > Interpreting Provider: Loreto Bone MD on 11/01/2023 9:17 PM Assessment and Plan Delirium evaluation: Patient currently does not have delirium. Potential risks for delirium includeimmobility, constipation risk, urinary retention risk, polypharmacy, pain, sleep disturbance. Risk reduction includes: - Avoid sedative hypnotics/anticholinergics - Allow family at bedside as much as possible. Familiar faces help manage delirium - Avoid restrictions/restraints in general - allow mobilization as soon as possible. PT/OT - Make sure his bowels are moving. Daily Miralax - Monitor for retention. Bladder scan post void. Straight cath for residuals >350ml -Chronic pain: will need ongoing pain medication equivalent to 10 mg tid hydrocodone plus additional prn for breakthrough pain of new injuries. Would also schedule toutine tylenol 650mg po q 6 hrs and lidocaine patch prn. 3. 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 Continue current eliquis dosing. 4. HTN: resume 100 mg metoprolol and losartan 100 mg (irbesartan not on formulary) 5. Hypothyroidism with 2x2 cm thyroid nodule: refer to endocrine as outpatient. 6. LE edema: hold lasix at this time. 7. Gait instability and declining functional status due to chronic back pain: patient may not be capable of safe return to her home and may require SNF placement. Patient/family aware and agreeable. 8. Insomnia: give melatoning 6 mg at hs. 9. MDD: continue paxil 20 mg Magda Miller MD Geriatric Medicine Attending Pager: 11/02/2023 1:40 PM * Rubi León MD - 11/02/2023 9:20 AM CDT Regional & Acute Pain Service Consult Note Promise Fierro [id number] 1940 [id number] Date of Consult: 11/02/2023 Reason for Consult: Rib fx Requesting Physician: Trauma surgery Subjective Admission History Reason for Admission: GLF Date of Admission: 11/01/2023 POD: Pain Service day: 1 Promise Fierro is an 83 yr old F w/ PMHx of HTN, PE, HLD who was brought in by EMS from [facility] as level 2 trauma after ground level fall. Injuries: 2 cm laceration to posterior scalp Left rib 5-9 fractures Age indeterminate T5 vertebral body compression deformity Pt sleeping comfortably in room. When woken she states that her pain is improved s/p pain pill overnight, is no longer in moderate/severe pain (5mg oxycodone at 2300 10/31). States that most of her pain is in her back, does have some L sided chest wall pain but states that it is not severe compared to the back pain. Pulls 1100mL on IS after education about use. Given pillow to hold against chest, able to cough and states that she does not have pain when she coughs. Pt otherwise without complaints, endorsing that pain is well controlled on current regimen. Does not require supplemental O2. Per our radiology reports, rib fx likely chronic. Review of Systems A comprehensive review of systems was negative except for: Musculoskeletal: positive for back pain Last documented staff pain score: Pain Rating Score #1: 9 Pain Location : Head Goal Numeric Pain Scale: 0 Sedation Level #1: 1-Awake and alert History is obtained from the patient Allergies Allergen Reactions Domo Inhibitors Cough Cough Cough Clarithromycin Unknown Hmg-Coa-R Inhibitors Unknown Ezetimibe Unknown Past Medical History: Diagnosis Date Arthritis DVT (deep venous thrombosis) (HCC) GERD (gastroesophageal reflux disease) HLD (hyperlipidemia) Hypertension No family history on file. Past Surgical History: Procedure Laterality Date COLONOSCOPY ENDOSCOPY, UPPER Rotator Cuff Repair Social History Socioeconomic History Marital status: Spouse name: Not on file Number of children: Not on file Years of education: Not on file Highest education level: Not on file Occupational History Not on file Tobacco Use Smoking status: Never Smokeless tobacco: Not on file Substance and Sexual Activity Alcohol use: Yes Alcohol/week: 1.0 standard drink of alcohol Types: 1 Alcoholic drink(s) per week Comment: at weds Drug use: Never Sexual activity: Not on file Other Topics Concern Not on file Social History Narrative Not on file Social Determinants of Health Financial Resource Strain: Not on file Food Insecurity: Not on file Transportation Needs: Not on file Stress: Not on file Housing Stability: Not on file Current Facility-Administered Medications Medication Dose Route Frequency Provider Last Rate Last Admin 0.9% NaCl injection 3 mL 3 mL Intracatheter q8h Taurus Ferrari MD And 0.9% NaCl injection 1-10 mL 1-10 mL Intracatheter PRN Taurus Ferrari MD 0.9% NaCl injection 3 mL 3 mL Intracatheter q8h Gold Perez DO 3 mL at 11/02/23 0636 And 0.9% NaCl injection 1-10 mL 1-10 mL Intracatheter PRN Gold Perez, acetaminophen (Tylenol) tablet 500 mg 500 mg Oral q4h PRN Ady Arizmendi MD 500 mg at 11/01/23 2251 acetaminophen (Tylenol) tablet 650 mg 650 mg Oral q6h Taurus Ferrari MD 650 mg at 11/02/23 0300 atorvastatin (Lipitor) tablet 40 mg 40 mg Oral QDAY Taurus Ferrari MD bacitracin topical ointment Topical TID Taurus Ferrari MD cyclobenzaprine (Flexeril) tablet 10 mg 10 mg Oral TID PRN Taurus Ferrari MD enoxaparin (Lovenox) injection 30 mg 30 mg Subcutaneous q12h Taurus Ferrari MD famotidine (Pepcid) tablet 20 mg 20 mg Oral BID Taurus Ferrari MD 20 mg at 11/02/23 0300 iopamidol (Isovue 370) 76 % contrast Intravenous Contrast - Once Kathryn Quach MD 150 mL at 11/01/23 1913 latanoprost (Xalatan) 0.005 % ophthalmic solution 1 drop 1 drop Each Eye AT BEDTIME Taurus Ferrari MD 1 drop at 11/02/23 0636 lidocaine (Lidoderm) 5 % patch 2 patch 2 patch Transdermal q24h Taurus Ferrari MD 2 patch at 11/02/23 0635 metoprolol succinate XL 24hr (Toprol XL) tablet 100 mg 100 mg Oral QDAY Taurus Ferrari MD ondansetron (disintegrating) (Zofran ODT) tablet 4 mg 4 mg Oral q6h PRN Taurus Ferrari MD Or ondansetron (Zofran) injection 4 mg 4 mg Intravenous q6h PRN Taurus Ferrari MD oxyCODONE (immediate release) (Roxicodone) tablet 2.5 mg 2.5 mg Oral q4h PRN Taurus Ferrari MD Or oxyCODONE (immediate release) (Roxicodone) tablet 5 mg 5 mg Oral q4h PRN Taurus Ferrari MD PARoxetine (Paxil) tablet 20 mg 20 mg Oral QDAY Taurus Ferrari MD polyethylene glycol 3350 (Miralax) packet 17 g 17 g Oral QDAY Taurus Ferrari MD senna (Senokot) tablet 8.6 mg 8.6 mg Oral QDAY Taurus Ferrari MD Current Outpatient Medications Medication Sig Dispense Refill Apixaban (Eliquis DVT/PE Starter Pack) 5 MG tablet Take by mouth 2 times daily atorvastatin (Lipitor) 40 MG tablet Take 1 (one) tablet by mouth once daily bimatoprost (Lumigan) 0.03 % ophthalmic solution 1 (one) drop at bedtime famotidine (Pepcid) 20 MG tablet Take by mouth 2 times daily furosemide (Lasix) 40 MG tablet Take 1 (one) tablet by mouth once daily Each morning irbesartan (Avapro) 150 MG tablet Take 1 (one) tablet by mouth once daily Each morning metoprolol succinate XL 24hr (Toprol XL) 100 MG tablet Take 1 (one) tablet by mouth once daily PARoxetine (Paxil) 20 MG tablet Take 1 (one) tablet by mouth once daily Objective Pain Management Medication Dosing &/OR Infusion Details Current Facility-Administered Medications Medication Dose Route Frequency Provider Last Rate Last Admin 0.9% NaCl injection 3 mL 3 mL Intracatheter q8h Taurus Ferrari MD And 0.9% NaCl injection 1-10 mL 1-10 mL Intracatheter PRN Taurus Ferrari MD 0.9% NaCl injection 3 mL 3 mL Intracatheter q8h Gold Perez DO 3 mL at 11/02/23 0636 And 0.9% NaCl injection 1-10 mL 1-10 mL Intracatheter PRN Gold Perez DO acetaminophen (Tylenol) tablet 500 mg 500 mg Oral q4h PRN Ady Arizmendi MD 500 mg at 11/01/23 2251 acetaminophen (Tylenol) tablet 650 mg 650 mg Oral q6h Taurus Ferrari MD 650 mg at 11/02/23 0300 atorvastatin (Lipitor) tablet 40 mg 40 mg Oral QDAY Taurus Ferrari MD bacitracin topical ointment Topical TID Taurus Ferrari MD cyclobenzaprine (Flexeril) tablet 10 mg 10 mg Oral TID PRN Taurus Ferrari MD enoxaparin (Lovenox) injection 30 mg 30 mg Subcutaneous q12h Taurus Ferrari MD famotidine (Pepcid) tablet 20 mg 20 mg Oral BID Taurus Ferrari MD 20 mg at 11/02/23 0300 iopamidol (Isovue 370) 76 % contrast Intravenous Contrast - Once Kathryn Quach MD 150 mL at 11/01/23 1913 latanoprost (Xalatan) 0.005 % ophthalmic solution 1 drop 1 drop Each Eye AT BEDTIME Taurus Ferrari MD 1 drop at 11/02/23 0636 lidocaine (Lidoderm) 5 % patch 2 patch 2 patch Transdermal q24h Taurus Ferrari MD 2 patch at 11/02/23 0635 metoprolol succinate XL 24hr (Toprol XL) tablet 100 mg 100 mg Oral QDAY Taurus Ferrari MD ondansetron (disintegrating) (Zofran ODT) tablet 4 mg 4 mg Oral q6h PRN Taurus Ferrari MD Or ondansetron (Zofran) injection 4 mg 4 mg Intravenous q6h PRN Taurus Ferrari MD oxyCODONE (immediate release) (Roxicodone) tablet 2.5 mg 2.5 mg Oral q4h PRN Taurus Ferrari MD Or oxyCODONE (immediate release) (Roxicodone) tablet 5 mg 5 mg Oral q4h PRN Taurus Ferrari MD PARoxetine (Paxil) tablet 20 mg 20 mg Oral QDAY Taurus Ferrari MD polyethylene glycol 3350 (Miralax) packet 17 g 17 g Oral QDAY Taurus Ferrari MD senna (Senokot) tablet 8.6 mg 8.6 mg Oral QDAY Taurus Ferrari MD Current Outpatient Medications Medication Sig Dispense Refill Apixaban (Eliquis DVT/PE Starter Pack) 5 MG tablet Take by mouth 2 times daily atorvastatin (Lipitor) 40 MG tablet Take 1 (one) tablet by mouth once daily bimatoprost (Lumigan) 0.03 % ophthalmic solution 1 (one) drop at bedtime famotidine (Pepcid) 20 MG tablet Take by mouth 2 times daily furosemide (Lasix) 40 MG tablet Take 1 (one) tablet by mouth once daily Each morning irbesartan (Avapro) 150 MG tablet Take 1 (one) tablet by mouth once daily Each morning metoprolol succinate XL 24hr (Toprol XL) 100 MG tablet Take 1 (one) tablet by mouth once daily PARoxetine (Paxil) 20 MG tablet Take 1 (one) tablet by mouth once daily Current medication therapy: Oxycodone 2.5/5mg q4h PRN Dilaudid 0.4mg q4h PRN Pain Adjuncts: Tylenol 650mg q6h, lidocaine patch Side Effects: none. Pain score: 11/30 Objective: BP 157/58 Pulse 58 Temp 97.2 ??F (36.2 ??C) (Temporal) Resp 19 Ht 1.6 m (5' 3 ) Wt 113.4 kg (250 lb) SpO2 94% Physical Exam Gen: Laying in bed, sleeping Neuro: No acute deficits Heart:: RRR Lungs: No respiratory distress Abdomen: Nondistended Extremities: Moving BUE and BLE spontaneously Data Review: Chemistry: Recent Labs Component Name 11/02/23 0711 11/01/231955 NA 141 138 POTASSIUM 4.5 4.3 CL 108* 107 CO2 24 21* BUN 14 20 CREATININE 0.54* 0.62 CALCIUM 9.0 8.7 MAGNESIUM 1.9 - Hematology: Recent Labs Component Name 11/02/23 0711 11/01/231955 WBC 7.6 6.8 HGB 12.3 12.8 HCT 34.4* 38.8 Coagulation: Recent Labs Component Name 11/01/231955 PT 15.5* INR 1.3 Liver Function: No results for input(s): ALT , AST , ALKPHOS , TBILI , DIRECT , ALB , PROTEIN in the last 13189 hours. Invalid input(s): PREALB Cardiac Enzymes: No results for input(s): CKMB , CKTOTAL , TROPONINI , CK in the last 50292 hours. Arterial Blood Gas: No results for input(s): PH , PCO2 , PO2 , HCO3 , BE , FIO2 in the last 63861 hours. Assessment/Recommendations Assessment Promise Fierro is an 83 yr old F w/ PMHx of HTN, PE, HLD who was brought in by EMS from [facility] as level 2 trauma after ground level fall. Injuries include L rib 5-9 fx (chronic per radiology) Recommendations - Pain well controlled on PO medications. Would not be epidural candidate due to AC need with h/o PE, ROCKY would be difficult given spinal injury and positioning limitations - Continue oxycodone 2.5/5mg q4h PRN - Discontinue dilaudid - Continue adjuncts - Pain team will sign off Please see attending, Dr. Salomon's attestation for more details. Please page [phone] (PAIN) with any further pain management questions or concerns. Rubi León MD Anesthesiology & Critical Care PGY2 November 02, 2023 9:27 AM Associated attestation - Ryanne Salomon MD - 11/02/2023 10:12 AM CDT .I was present for exam and discussion of patient with the resident. I agree with progress note andthe plan. * Deanne Dior MD - 11/01/2023 8:51 PM CDT Neurosurgery Spine Consult Note Name: Promise Fierro : 1940 Date of Admission:11/01/2023 Date of Consult:11/01/2023 8:52 PM Time Seen: 9:30 PM Chief Complaint (CC): thoracic compression fractures HISTORY OF PRESENT ILLNESS (HPI): Patient is a 83 year old female with PMHx of HTN, PE on Eliquis, HLD who presented to [facility] on 11/01/2023 s/p ground level fall. Patient was using her walker when she hit curb and fell to ground, hitting head, +LOC. [facility] hypertensive to 220s, scalp lac, chest and back pain.CT thoracic spine demonstrated age-indeterminate compression fracture deformities of T5 and T6 . Neurosurgery spine consulted at this time. [facility] NEURO SPINAL SURGERY HIGH RISK VARIABLES Coagulation Defect - Coagulation defect, unspecified Present on admission? Yes Past Medical History: Diagnosis Date Arthritis DVT (deep venous thrombosis) (HCC) GERD (gastroesophageal reflux disease) HLD (hyperlipidemia) Hypertension No past surgical history on file. Allergies Allergen Reactions Domo Inhibitors Cough Cough Cough Clarithromycin Unknown Hmg-Coa-R Inhibitors Unknown Ezetimibe Unknown Current Medications Apixaban (Eliquis DVT/PE Starter Pack) 5 MG tablet Take by mouth 2 times daily famotidine (Pepcid) 20 MG tablet Take by mouth 2 times daily Current Facility-Administered Medications Medication 0.9% NaCl injection 3 mL And 0.9% NaCl injection 1-10 mL 0.9% NaCl IV bolus iopamidol (Isovue 370) 76 % contrast ondansetron (disintegrating) (Zofran ODT) tablet 4 mg ondansetron (Zofran) injection 4 mg Current Outpatient Medications Medication Apixaban (Eliquis DVT/PE Starter Pack) 5 MG tablet famotidine (Pepcid) 20 MG tablet Social History Tobacco Use Smoking status: Not on file Smokeless tobacco: Not on file Substance Use Topics Alcohol use: Not on file No family history on file. REVIEW OF SYSTEMS Constitutional: Negative Eyes: Negative Ears, nose, mouth, throat, and face: Negative Respiratory: Negative Cardiovascular: Negative Gastrointestinal: Negative Genitourinary:negative Hematologic/lymphatic: Negative Musculoskeletal:Negative Neurological: positive for back pain Behavioral/Psych: Negative PHYSICAL EXAM BP 178/68 Pulse 64 Temp 97.2 ??F (36.2 ??C) (Temporal) Resp 13 Ht 1.6 m (5' 3 ) Wt 113.4 kg (250 lb) SpO2 95% General: lying flat in stretcher, endorses rib pain Cardiovascular: RRR Respiratory: CTAB Abdominal: S, NT, ND Neuro: awake, alert, sensation intact Deltoid Bicep Tricep Variety Lathe Operator Wrist Ext Finger ext Hip Flexor Quad Hamstring Tib Ant Gastroc EHL Right 5 5 5 5 5 5 5 5 5 5 5 5 Left 5 5 5 5 5 5 4* 5 5 5 5 5 Pain limited weakness Pinpoint tenderness to palpation between shoulder blades LABORATORY No results for input(s): WBC , HGB , HCT , PLTCOUNT in the last 71254 hours. Recent Labs Component Name 11/01/231955 NA 138 POTASSIUM 4.3 CO2 21* BUN 20 CREATININE 0.62 GLUCOSE 92 Recent Labs Component Name 11/01/231955 INR 1.3 RADIOLOGY EXAM: CT HEAD WO CONTRAST, CT FACIAL BONES WO CONTRAST, CT CERVICAL SPINE WO CONTRAST, CT THORACIC SPINE WO CONTRAST, CT LUMBAR SPINE WO CONTRAST, DATE/TIME OF EXAM: 11/01/2023 7:48 PM, LOCATION: [facility] HISTORY: Trauma ADDITIONAL CLINICAL INFORMATION: Ordering Provider [...] dependent subsegmental atelectasis of the lung apices. Wlyd-ru-gihvheff calcific atherosclerosis of the carotid bulbs and moderate calcific atherosclerosis of the common carotid arteries. Multiple calcified mediastinal lymph nodes that is suggestive of prior healed granulomatous disease. THORACIC SPINE: ALIGNMENT: Mild kyphosis centered at the T5 level and mlkj-hf-mgtlxlwf levoconvex curvature of the upper thoracic spine without significant listhesis. No traumatic malalignment. BONES: Age-indeterminate compression fracture deformity of the T5 vertebral body superior endplate associated with a thin sclerotic line and with approximately 30% height loss anteriorly, which may represent an guicv-yu-jjdsjagg microtrabecular fracture. Age-indeterminate compression fracture deformity of the T6 vertebral body superior endplate associated with a thin sclerotic line and with approximately 30% height loss centrally, which may represent an gdtuc-tp-adosgkmg microtrabecular fracture. Chronic-appearing tchgook-kk-qatq height loss remaining thoracic vertebral bodies. No retropulsion at any level. Osseous structures are markedly demineralized. DISCS: Multilevel mild disc space narrowing. DEGENERATIVE CHANGES: Overall iyrx-rw-oqezrfeb multilevel degenerative changes. SPINAL CANAL/NEUROFORAMEN: No significant spinal canal stenosis. High-grade neuroforaminal narrowing at the right T2-T3 through T5-T6 levels and left T10-T11 level in addition to alza-ys-dnqgjhxf neuroforaminal narrowing elsewhere. SOFT TISSUES: Visualized soft tissues are normal. OTHER: Dependent atelectasis of the lungs bilaterally. Mildly tortuous thoracic aorta with blwuluab-ip-txitfb calcific atherosclerosis. Multiple calcified mediastinal lymph nodes [...] phenomena at all levels. DEGENERATIVE CHANGES: Overall ckxhdpnl-ls-pjapju multilevel degenerative change, characterized by varying degrees of posterior disc bulges, ligamentum flavum hypertrophy, and facet arthropathy. SPINAL CANAL/NEUROFORAMEN: Multilevel spinal canal stenoses that is notably mild at the T12-L1 and L2-L3 levels, cjufeqbf-dl-ikjhxy at the L3-L4 and L4-L5 levels, and [...] concurrently reported chest, abdomen, and pelvis CT. IMPRESSION: 1.No acute intracranial abnormality. 2.No acute maxillofacial fracture. 3.No acute fracture or traumatic malalignment of the cervical spine. 4.Age-indeterminate compression fracture deformities of the T5 and T6 vertebral bodies resulting in 30% height loss and associated with a thin sclerotic line through the superior endplates at these levels, which may represent fdfgh-xc-zhvhpnfn microtrabecular fractures. No evidence of retropulsion. Recommend [...] CT for description of additional nonspine-related abnormalities. Assessment: 83 year old female with PMHx of HTN, PE on Eliquis, HLD who presented to [facility] on 11/01/2023 s/p ground level fall. CT thoracic spine demonstrated age- indeterminate compression fracture deformities ofT5 and T6 . Patient is neurologically intact with tenderness to palpation at those levels. Plan: - Continue to monitor neuro exam q4 hours - Please obtain MRI thoracic spine wo contrast for further characterization of injury - Discussed possible bracing vs kyphoplasty depending on MRI results - cervical collar removed at bedside - Activity: bedrest, okay to sit up to 30 degrees - Diet as tolerated - Pain control PRN per primary team - Please hold all anticoagulation/antiplatelet medications at this time - Okay for VTE prophylaxis - Overall care per Trauma Case discussed with Dr. Brock Dior MD 11/01/2023 8:52 PM * Linda Payan MD - 11/01/2023 8:00 PM CDT TRANSFUSION MEDICINE SERVICE: ANTIBODY EVALUATION ? Clinical Summary: This 83 year-old female patient with a PMH of HTN and A Fib (on Eliquis), was brought to the ED by EMS after an unwitnessed fall from curb onto concrete. Laboratory Evaluation: This patient is blood group O-POS and has a reactive antibody screen. 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 All other common and/or clinically significant antibodies areruled out and the KAVIN is negative. Additionally, the patient's own RBCs are found to be positive for the M antigen. 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 Assessment: The M antigen is a member of the MNS blood group antigen system. Anti-M antibody can be either IgM or IgG and is thought to occur naturally (does not require RBC exposure to develop). It usually reacts at room temperature and at 37 degrees C, and is generally considered clinically insignificant. However, it has been implicated in rare cases of hemolytic transfusion reactions. Anti-M autoantibodies are generally viewed as clinically insignificant and are not associated with autoimmune hemolytic anemia. About 21% of blood donors lack the M antigen. It is not typically necessary to provide M antigen-negative blood for transfusion, but crossmatch-compatible blood should selected whenever possible for patients with any type of anti-M antibody. Recommendations: Transfuse as clinically indicated. If blood transfusion is required, ABO/Rh-compatible and crossmatch-compatible RBC units should be chosen. Please allow extra time for the blood bank to meet the specific needs of this patient. Linda Payan MD Attending Physician Transfusion Medicine documented in this encounter ED Notes * Shanelle Carranza RN - 11/02/2023 7:54 PM CDT Report to Zuri @ [phone] * Rambo Alvarado MD - 11/02/2023 3:22 PM CDT Transition of Care EMERGENCY MEDICINE ATTENDING NOTE 11/02/2023 3:22 PM I have personally seen and evaluated the patient, reviewed the lab results, and radiology imaging; please refer to RESIDENT note for further details. I have discussed the case with the RESIDENT and I agree with his/her assessment and plan of care, except if otherwise noted. Patient care assumed from Dr. Brito. Promise Fierro is a 83 year old female who is being evaluated for thoracic spine compression fracture and rib fractures 5-9 on left. Pt is on eliquis. Pt is admitted to Trauma floor pending inpatient bed availability. Chief Complaint Patient presents with Fall Pt BIBEMS for Fall. EMS reports patient fell from curb to concrete, +LOC, +thinners, VSS. Pt presents alert, 1cm lac to posterior head, c/o lumbar tenderness, and headache. BP 137/84 Pulse 66 Temp 98.1 ??F (36.7 ??C) (Oral) Resp 16 Ht 1.6 m (5' 3 ) Wt 113.4 kg (250 lb) SpO2 95% MDM/ED Course: (All Labs/Imaging/ECG, other diagnostics independently interpreted by me.) Current Plan/Dispo: Management of care Please refer to previous attending's/resident's note for further details. 5:00 PM Pt reassessed. Resting comfortably in bed. VSS. Pt with pain control ordered. 9:00 PM Pt taken SAROJ to inpatient bed assignment. Clinical Impression: 1. Closed fracture of multiple ribs of left side, initial encounter 2. Trauma 3. Other closed fracture of thoracic vertebra, unspecified thoracic vertebral level, initial encounter ([facility]) Disposition: ADMIT to Trauma By signing my name below, I, Marydaniel Gaye, attest that this documentation has been prepared underthe direction and in the presence of Dr. Rambo Alvarado. Signed: Torres Mcdonnell. Date: 11/02/2023. Time:8:22 PM. Rambo Alvarado MD Division of Emergency Medicine [facility] 11/02/2023 8:22 PM * Shannan Hooper, JOLLY - 11/02/2023 12:05 PM CDT Patient up to bedside commode with assistance from this CRN. Patient endorses mild dizziness once she sat down onto commode. No difficulty passing stool. Patient transferred onto inpatient hospital bed for increased comfort measures. Call light and belongings within reach. Bed is locked and in low position with side rails up. No other complaints at this time. * Catrachita Brito MD - 11/02/2023 6:19 AM CDT ASSUMED CARE NOTE Patient signed out to me by Dr. Hill at 6:00 AM. Resident provider will also follow. Promise Fierro is a 83 year old female is being evaluated s/p a fall from standing.At this time the patient's condition is Stable. Pending inpatient bed availability. Nursing to follow [facility]'s admit orders. Will continue to monitor. Vitals: 11/01/23 1857 11/01/23 1906 11/01/23 1935 11/02/23 0005 BP: (!) 191/125 (!) 211/91 178/68 157/58 Pulse: 62 64 64 54 Resp: 16 15 13 16 Temp: 97.2 ??F (36.2 ??C) SpO2: 99% 97% 95% 94% Weight: 113.4 kg (250 lb) Height: 1.6 m (5' 3 ) Labs Reviewed BASIC METABOLIC PANEL (CALCIUM TOTAL) - Abnormal; Notable for the following components: Result Value CO2 21 (*) BUN/Creatinine Ratio 32 (*) eGFR by CKD-EPI 88 (*) All other components within normal limits CBC W AUTO DIFFERENTIAL - Abnormal; Notable for the following components: RBC Count 3.80 (*) MCV 102.1 (*) MCH 33.7 (*) All other components within normal limits PT-INR SLH - Abnormal; Notable for the following components: PT 15.5 (*) All other components within normal limits TEG 6S PLATELET MAPPING - Abnormal; Notable for the following components: TEGPLM (Max Amplitude) ADP 24.0 (*) TEGPLM (Max Amplitude) AA 13.2 (*) TEGPLM %Inhibition ADP 74.6 (*) TEGPLM %Inhibition AA 96.4 (*) TEGPLM %Aggregation ADP 25.4 (*) TEGPLM % Aggregation AA 3.6 (*) All other components within normal limits TEG 6 GLOBAL HEMOSTASIS W/ LYSIS - Abnormal; Notable for the following components: Citrated Kaolin R (Reaction Time) 3.4 (*) All other components within normal limits URINE DRUG SCREEN IMMUNOASSAY - Abnormal; Notable for the following components: Opiates Urine Positive (*) All other components within normal limits Narrative: The Urine Toxicology Screening Panel does not screen for Propoxyphene, Meprobamate, Carisoprodol, Trazodone, nyxe-olq-bbumppp medications and/or volatiles (Acetone, Isopropanol, Methanol or Ethylene Glycol). Ethanol, Salicylate, Acetaminophen, Tricyclic Antidepressants and several therapeutic drugsmay be individually assayed in serum or plasma specimen. Toxicology testing by the [facility] is an aid to medical diagnosisand treatment of patients. No documented chain of custody was maintained. Results are intended to be used for clinical purposes only. URINALYSIS W/MICROSCOPIC NO CULTURE - Abnormal; Notable for the following components: Specific [place] UA 1.044 (*) Blood UA 3+ (*) Bacteria UA 1+ (*) All other components within normal limits Narrative: CBC W/O DIFFERENTIAL - Abnormal; Notable for the following components: RBC Count 3.31 (*) Hematocrit 34.4 (*) MCV 103.9 (*) MCH 37.2 (*) RDW-CV 16.2 (*) All other components within normal limits ALCOHOL ETHYL BLOOD - Normal Narrative: Ethanol Interp <10: None Detected. Depression of [employer] DEVELOPER: >100 mg/dl Potentially Critical: >250 mg/dl Potentially Fatal >400 mg/dl Ethanol in the patient's blood will contribute to the osmolar gap. Ethanol's contribution to the osmolar gap can be estimated by dividing the concentration of ethanol in mg/dL by 4.6. This test is for clinical use only and does not equal a ADARSH for legal purposes. TROPONIN-I HIGH SENSITIVE BASELINE + 1HR - Normal TROPONIN-I HIGH SENSITIVE REFLEX 1HOUR PHOSPHORUS BLOOD MAGNESIUM BLOOD BASIC METABOLIC PANEL (CALCIUM TOTAL) TYPE + SCREEN PANEL WILMA DIRECT ANTIBODY IDENTIFICATION PREPARE RBC LEUKOREDUCED UNIT BLOOD TYPE VERIFICATION CT HEAD WO CONTRAST - Head Trauma, CSF leak, mental status changes Final Result EXAM: CT HEAD WO CONTRAST, CT FACIAL BONES WO CONTRAST, CT CERVICAL SPINE WO CONTRAST, CT THORACIC SPINE WO CONTRAST, CT LUMBAR SPINE WO CONTRAST, DATE/TIME OF EXAM: 11/01/2023 7:48 PM, LOCATION: [facility] HISTORY: Trauma ADDITIONAL CLINICAL INFORMATION: Ordering Provider [...] dependent subsegmental atelectasis of the lung apices. Kqqh-he-jqdxuecz calcific atherosclerosis of the carotid bulbs and moderate calcific atherosclerosis of the common carotid arteries. Multiple calcified mediastinal lymph nodes that is suggestive of prior healed granulomatous disease. THORACIC SPINE: ALIGNMENT: Mild kyphosis centered at the T5 level and hazx-vh-nzlsxpjk levoconvex curvature of the upper thoracic spine without significant listhesis. No traumatic malalignment. BONES: Age-indeterminate compression fracture deformity of the T5 vertebral body superior endplate associated with a thin sclerotic line and with approximately 30% height loss anteriorly, which may represent an ssuuo-xv-gbvmzdaz microtrabecular fracture. Age-indeterminate compression fracture deformity of the T6 vertebral body superior endplate associated with a thin sclerotic line and with approximately 30% height loss centrally, which may represent an owuos-fr-ruojussn microtrabecular fracture. Chronic-appearing zzuuwcf-zd-znnb height loss remaining thoracic vertebral bodies. No retropulsion at any level. Osseous structures are markedly demineralized. DISCS: Multilevel mild disc space narrowing. DEGENERATIVE CHANGES: Overall rrac-sy-mjuufjhu multilevel degenerative changes. SPINAL CANAL/NEUROFORAMEN: No significant spinal canal stenosis. High-grade neuroforaminal narrowing at the right T2-T3 through T5-T6 levels and left T10-T11 level in addition to hvgu-ao-hbpsytfx neuroforaminal narrowing elsewhere. SOFT TISSUES: Visualized soft tissues are normal. OTHER: Dependent atelectasis of the lungs bilaterally. Mildly tortuous thoracic aorta with qhesdgdy-od-sflcls calcific atherosclerosis. Multiple calcified mediastinal lymph nodes [...] phenomena at all levels. DEGENERATIVE CHANGES: Overall qgmoehhs-cr-rjdvef multilevel degenerative change, characterized by varying degrees of posterior disc bulges, ligamentum flavum hypertrophy, and facet arthropathy. SPINAL CANAL/NEUROFORAMEN: Multilevel spinal canal stenoses that is notably mild at the T12-L1 and L2-L3 levels, mqmxfykp-vq-tgmgnm at the L3-L4 and L4-L5 levels, and [...] concurrently reported chest, abdomen, and pelvis CT. IMPRESSION: 1.No acute intracranial abnormality. 2.No acute maxillofacial fracture. 3.No acute fracture or traumatic malalignment of the cervical spine. 4.Age-indeterminate compression fracture deformities of the T5 and T6 vertebral bodies resulting in 30% height loss and associated with a thin sclerotic line through the superior endplates at these levels, which may represent fqbzk-nw-dptmdkyk microtrabecular fractures. No evidence of retropulsion. Recommend [...] Elliott MD, PhD on 11/01/2023 10:[address] FACIAL BONES WO CONTRAST - Facial trauma, fx suspected, blunt Final Result EXAM: CT HEAD WO CONTRAST, CT FACIAL BONES WO CONTRAST, CT CERVICAL SPINE WO CONTRAST, CT THORACIC SPINE WO CONTRAST, CT LUMBAR SPINE WO CONTRAST, DATE/TIME OF EXAM: 11/01/2023 7:48 PM, LOCATION: [facility] HISTORY: Trauma ADDITIONAL CLINICAL INFORMATION: Ordering Provider [...] dependent subsegmental atelectasis of the lung apices. Ifvz-zz-djndmcbf calcific atherosclerosis of the carotid bulbs and moderate calcific atherosclerosis of the common carotid arteries. Multiple calcified mediastinal lymph nodes that is suggestive of prior healed granulomatous disease. THORACIC SPINE: ALIGNMENT: Mild kyphosis centered at the T5 level and ubum-kw-jbvpdhpq levoconvex curvature of the upper thoracic spine without significant listhesis. No traumatic malalignment. BONES: Age-indeterminate compression fracture deformity of the T5 vertebral body superior endplate associated with a thin sclerotic line and with approximately 30% height loss anteriorly, which may represent an yvwge-sn-okupukcx microtrabecular fracture. Age-indeterminate compression fracture deformity of the T6 vertebral body superior endplate associated with a thin sclerotic line and with approximately 30% height loss centrally, which may represent an nussw-sj-epxqpogu microtrabecular fracture. Chronic-appearing lbfzbhf-am-jlkx height loss remaining thoracic vertebral bodies. No retropulsion at any level. Osseous structures are markedly demineralized. DISCS: Multilevel mild disc space narrowing. DEGENERATIVE CHANGES: Overall ydck-ip-snwmgqyc multilevel degenerative changes. SPINAL CANAL/NEUROFORAMEN: No significant spinal canal stenosis. High-grade neuroforaminal narrowing at the right T2-T3 through T5-T6 levels and left T10-T11 level in addition to kyps-bb-wfnvzmfo neuroforaminal narrowing elsewhere. SOFT TISSUES: Visualized soft tissues are normal. OTHER: Dependent atelectasis of the lungs bilaterally. Mildly tortuous thoracic aorta with wbkrtpyi-vv-kxxwxy calcific atherosclerosis. Multiple calcified mediastinal lymph nodes [...] phenomena at all levels. DEGENERATIVE CHANGES: Overall dzrwcxfi-us-xtxlbu multilevel degenerative change, characterized by varying degrees of posterior disc bulges, ligamentum flavum hypertrophy, and facet arthropathy. SPINAL CANAL/NEUROFORAMEN: Multilevel spinal canal stenoses that is notably mild at the T12-L1 and L2-L3 levels, cdpqypdv-ox-yajzlb at the L3-L4 and L4-L5 levels, and [...] concurrently reported chest, abdomen, and pelvis CT. IMPRESSION: 1.No acute intracranial abnormality. 2.No acute maxillofacial fracture. 3.No acute fracture or traumatic malalignment of the cervical spine. 4.Age-indeterminate compression fracture deformities of the T5 and T6 vertebral bodies resulting in 30% height loss and associated with a thin sclerotic line through the superior endplates at these levels, which may represent pkyyb-iw-wcfpqgxi microtrabecular fractures. No evidence of retropulsion. Recommend [...] Elliott MD, PhD on 11/01/2023 10:[address] CHEST ABDOMEN PELVIS W CONT - Abdomen-pelvis trauma, blunt or penetrating Final Result PROCEDURE: CT CHEST ABDOMEN PELVIS W CONT, DATE/TIME OF EXAM: 11/01/2023 7:48 PM, LOCATION [facility] INDICATION: Trauma ADDITIONAL CLINICAL INFORMATION: Ordering Provider [...] pelvis. > Dictated by Paxton Whitley DO (residential mental health worker). I, Milad Mcnulty MD have personally reviewed and interpreted this examination/study. > Interpreting Provider: Milad Mcnulty MD on 11/01/2023 10:[address] THORACIC SPINE WO CONTRAST - T/L-spine trauma, spine fracture Final Result EXAM: CT HEAD WO CONTRAST, CT FACIAL BONES WO CONTRAST, CT CERVICAL SPINE WO CONTRAST, CT THORACIC SPINE WO CONTRAST, CT LUMBAR SPINE WO CONTRAST, DATE/TIME OF EXAM: 11/01/2023 7:48 PM, LOCATION: [facility] HISTORY: Trauma ADDITIONAL CLINICAL INFORMATION: Ordering Provider [...] x 2.3 cm in the axial plane (/219). OTHER: Mild dependent subsegmental atelectasis of the lung apices. Bdrt-ei-uhqhzumn calcific atherosclerosis of the carotid bulbs and moderate calcific atherosclerosis of the common carotid arteries. Multiple calcified mediastinal lymph nodes that is suggestive of prior healed granulomatous disease. THORACIC SPINE: ALIGNMENT: Mild kyphosis centered at the T5 level and qvvu-dw-lntuxnwr levoconvex curvature of the upper thoracic spine without significant listhesis. No traumatic malalignment. BONES: Age-indeterminate compression fracture deformity of the T5 vertebral body superior endplate associated with a thin sclerotic line and with approximately 30% height loss anteriorly, which may represent an vyxao-iz-xlvnaoae microtrabecular fracture. Age-indeterminate compression fracture deformity of the T6 vertebral body superior endplate associated with a thin sclerotic line and with approximately 30% height loss centrally, which may represent an krgwy-ns-tpptairh microtrabecular fracture. Chronic-appearing cnhibew-nx-wvik height loss remaining thoracic vertebral bodies. No retropulsion at any level. Osseous structures are markedly demineralized. DISCS: Multilevel mild disc space narrowing. DEGENERATIVE CHANGES: Overall rmsk-tg-qsuiqsxi multilevel degenerative changes. SPINAL CANAL/NEUROFORAMEN: No significant spinal canal stenosis. High-grade neuroforaminal narrowing at the right T2-T3 through T5-T6 levels and left T10-T11 level in addition to jevi-hd-bknjgwrk neuroforaminal narrowing elsewhere. SOFT TISSUES: Visualized soft tissues are normal. OTHER: Dependent atelectasis of the lungs bilaterally. Mildly tortuous thoracic aorta with hfwobjny-ts-ybwiuj calcific atherosclerosis. Multiple calcified mediastinal lymph nodes [...] phenomena at all levels. DEGENERATIVE CHANGES: Overall lvdywncn-zo-gnucza multilevel degenerative change, characterized by varying degrees of posterior disc bulges, ligamentum flavum hypertrophy, and facet arthropathy. SPINAL CANAL/NEUROFORAMEN: Multilevel spinal canal stenoses that is notably mild at the T12-L1 and L2-L3 levels, tkwctqgy-gl-zhhbob at the L3-L4 and L4-L5 levels, and [...] concurrently reported chest, abdomen, and pelvis CT. IMPRESSION: 1.No acute intracranial abnormality. 2.No acute maxillofacial fracture. 3.No acute fracture or traumatic malalignment of the cervical spine. 4.Age-indeterminate compression fracture deformities of the T5 and T6 vertebral bodies resulting in 30% height loss and associated with a thin sclerotic line through the superior endplates at these levels, which may represent wmblp-bu-tnlvgcwu microtrabecular fractures. No evidence of retropulsion. Recommend [...] Elliott MD, PhD on 11/01/2023 10:[address] LUMBAR SPINE WO CONTRAST - T/L-spine trauma, Spine fracture Final Result EXAM: CT HEAD WO CONTRAST, CT FACIAL BONES WO CONTRAST, CT CERVICAL SPINE WO CONTRAST, CT THORACIC SPINE WO CONTRAST, CT LUMBAR SPINE WO CONTRAST, DATE/TIME OF EXAM: 11/01/2023 7:48 PM, LOCATION: [facility] HISTORY: Trauma ADDITIONAL CLINICAL INFORMATION: Ordering Provider [...] dependent subsegmental atelectasis of the lung apices. Wcgu-lh-bxvtsawl calcific atherosclerosis of the carotid bulbs and moderate calcific atherosclerosis of the common carotid arteries. Multiple calcified mediastinal lymph nodes that is suggestive of prior healed granulomatous disease. THORACIC SPINE: ALIGNMENT: Mild kyphosis centered at the T5 level and gfsh-an-aoxahvhc levoconvex curvature of the upper thoracic spine without significant listhesis. No traumatic malalignment. BONES: Age-indeterminate compression fracture deformity of the T5 vertebral body superior endplate associated with a thin sclerotic line and with approximately 30% height loss anteriorly, which may represent an zfwmb-oa-krjudlot microtrabecular fracture. Age-indeterminate compression fracture deformity of the T6 vertebral body superior endplate associated with a thin sclerotic line and with approximately 30% height loss centrally, which may represent an qucms-cl-wurnzure microtrabecular fracture. Chronic-appearing infysyz-ph-hkqh height loss remaining thoracic vertebral bodies. No retropulsion at any level. Osseous structures are markedly demineralized. DISCS: Multilevel mild disc space narrowing. DEGENERATIVE CHANGES: Overall asay-eu-iovftvic multilevel degenerative changes. SPINAL CANAL/NEUROFORAMEN: No significant spinal canal stenosis. High-grade neuroforaminal narrowing at the right T2-T3 through T5-T6 levels and left T10-T11 level in addition to ayya-rr-xdrcrbts neuroforaminal narrowing elsewhere. SOFT TISSUES: Visualized soft tissues are normal. OTHER: Dependent atelectasis of the lungs bilaterally. Mildly tortuous thoracic aorta with xdasphmy-hy-cioycw calcific atherosclerosis. Multiple calcified mediastinal lymph nodes [...] phenomena at all levels. DEGENERATIVE CHANGES: Overall pnpzbpmg-xi-zkfmyp multilevel degenerative change, characterized by varying degrees of posterior disc bulges, ligamentum flavum hypertrophy, and facet arthropathy. SPINAL CANAL/NEUROFORAMEN: Multilevel spinal canal stenoses that is notably mild at the T12-L1 and L2-L3 levels, jatlukvy-wl-emjwej at the L3-L4 and L4-L5 levels, and [...] concurrently reported chest, abdomen, and pelvis CT. IMPRESSION: 1.No acute intracranial abnormality. 2.No acute maxillofacial fracture. 3.No acute fracture or traumatic malalignment of the cervical spine. 4.Age-indeterminate compression fracture deformities of the T5 and T6 vertebral bodies resulting in 30% height loss and associated with a thin sclerotic line through the superior endplates at these levels, which may represent mhyhn-lz-grrhaizw microtrabecular fractures. No evidence of retropulsion. Recommend [...] Elliott MD, PhD on 11/01/2023 10:[address] CERVICAL SPINE WO CONTRAST Final Result EXAM: CT HEAD WO CONTRAST, CT FACIAL BONES WO CONTRAST, CT CERVICAL SPINE WO CONTRAST, CT THORACIC SPINE WO CONTRAST, CT LUMBAR SPINE WO CONTRAST, DATE/TIME OF EXAM: 11/01/2023 7:48 PM, LOCATION: [facility] HISTORY: Trauma ADDITIONAL CLINICAL INFORMATION: Ordering Provider [...] dependent subsegmental atelectasis of the lung apices. Glef-en-lvmaiaks calcific atherosclerosis of the carotid bulbs and moderate calcific atherosclerosis of the common carotid arteries. Multiple calcified mediastinal lymph nodes that is suggestive of prior healed granulomatous disease. THORACIC SPINE: ALIGNMENT: Mild kyphosis centered at the T5 level and dwyw-af-frnrghxh levoconvex curvature of the upper thoracic spine without significant listhesis. No traumatic malalignment. BONES: Age-indeterminate compression fracture deformity of the T5 vertebral body superior endplate associated with a thin sclerotic line and with approximately 30% height loss anteriorly, which may represent an zxodr-xz-qqsxtdsq microtrabecular fracture. Age-indeterminate compression fracture deformity of the T6 vertebral body superior endplate associated with a thin sclerotic line and with approximately 30% height loss centrally, which may represent an elzgn-xe-rfmqjexm microtrabecular fracture. Chronic-appearing foqdruf-rj-abmp height loss remaining thoracic vertebral bodies. No retropulsion at any level. Osseous structures are markedly demineralized. DISCS: Multilevel mild disc space narrowing. DEGENERATIVE CHANGES: Overall fcov-ol-mshtzykm multilevel degenerative changes. SPINAL CANAL/NEUROFORAMEN: No significant spinal canal stenosis. High-grade neuroforaminal narrowing at the right T2-T3 through T5-T6 levels and left T10-T11 level in addition to qvor-wa-xskmaovc neuroforaminal narrowing elsewhere. SOFT TISSUES: Visualized soft tissues are normal. OTHER: Dependent atelectasis of the lungs bilaterally. Mildly tortuous thoracic aorta with myxzjeos-qq-atcloz calcific atherosclerosis. Multiple calcified mediastinal lymph nodes [...] phenomena at all levels. DEGENERATIVE CHANGES: Overall dlbrxcoq-ei-rauzrk multilevel degenerative change, characterized by varying degrees of posterior disc bulges, ligamentum flavum hypertrophy, and facet arthropathy. SPINAL CANAL/NEUROFORAMEN: Multilevel spinal canal stenoses that is notably mild at the T12-L1 and L2-L3 levels, pdmgrikd-lr-hiszrl at the L3-L4 and L4-L5 levels, and [...] concurrently reported chest, abdomen, and pelvis CT. IMPRESSION: 1.No acute intracranial abnormality. 2.No acute maxillofacial fracture. 3.No acute fracture or traumatic malalignment of the cervical spine. 4.Age-indeterminate compression fracture deformities of the T5 and T6 vertebral bodies resulting in 30% height loss and associated with a thin sclerotic line through the superior endplates at these levels, which may represent abtiq-ss-gvijfzpz microtrabecular fractures. No evidence of retropulsion. Recommend [...] Elliott MD, PhD on 11/01/2023 10:38 PM XR PELVIS 1 OR 2VW Final Result PROCEDURE: XR PELVIS 1 OR 2VW, DATE/TIME OF EXAM: 11/01/2023 7:10 PM, LOCATION [facility] INDICATION: T14.90XA: Trauma ADDITIONAL CLINICAL INFORMATION: Ordering [...] Report dictated by Sarah Keith Dr, MD (residential mental health worker). I, Loreto Bone MD have personally reviewed and interpreted this examination/study. > Interpreting Provider: Loreto Bone MD on 11/01/2023 9:17 PM XR CHEST 1VW PORTABLE Final Result PROCEDURE: XR CHEST 1VW PORTABLE, DATE/TIME OF EXAM: 11/01/2023 7:10 PM, LOCATION [facility] INDICATION: Trauma ADDITIONAL CLINICAL INFORMATION: COMPARISON: None. FINDINGS/IMPRESSION: Hazy appearance of the bilateral lungs may be secondary to atelectasis versus multifocal infection. No pneumothorax. The heart and mediastinum appear enlarged which may be due to portable technique however cannot rule out vascular injury in the setting of trauma. This will be better present CT chest abdomen pelvis. Calcified calcification of the aortic arch. No displaced fractures identified. Rim-like calcification seen overlapping the right chest tube, likely calcified breast implant. Report dictated by Sarah Keith Dr, MD (residential mental health worker). I, Loreto Bone MD have personally reviewed and interpreted this examination/study. > Interpreting Provider: Loreto Bone MD on 11/01/2023 9:17 PM MRI THORACIC SPINE WO CONTRAST (Results Pending) ED Course: 0750: Assessed the patient. [facility] at the bedside and instructing on incentive spirometer. Patient states she feels better after pain meds. Has no acute c/o. Await bed assignment. 1400: Patient remains stable. Patient signed out to Dr. Alvarado pending ready bed and transport. Clinical Impression: 1. Closed fracture of multiple ribs of left side, initial encounter 2. Trauma 3. Other closed fracture of thoracic vertebra, unspecified thoracic vertebral level, initial encounter ([facility]) Disposition: Admit to [facility] pending bed assignment. By signing my name below, I, Susan Hunter, attest that this documentation has been prepared under the direction and in the presence of Dr. Brito. Signed: Torres Aguayo. Georgie, Dr. Brito, personally performed the services described in this documentation. All medical record entries made by the scribe were at my direction and in my presence. I have reviewed the chart and agree that the record reflects my personal performance and is accurate and complete. * January Rodriguez RN - 11/02/2023 2:01 AM CDT Pt : Harlan Fierro [phone] * Gabriel Hill MD - 11/01/2023 10:20 PM CDT Transition of Care EMERGENCY MEDICINE ATTENDING NOTE Patient seen as a team with the Resident, Dr. Dre Clemons, who has also contributed to this note. Patient care assumed from Dr. Church at 10:00 PM. Please see their note for further details. Briefly, Promise Fierro is a 83 year old female who is being evaluated for multiple fractures s/pmechanical fall. At this time the patient's condition is Stable. Thus far, studies reveal: - LABS: Labs Reviewed BASIC METABOLIC PANEL (CALCIUM TOTAL) - Abnormal; Notable for the following components: Result Value CO2 21 (*) BUN/Creatinine Ratio 32 (*) eGFR by CKD-EPI 88 (*) All other components within normal limits CBC W AUTO DIFFERENTIAL - Abnormal; Notable for the following components: RBC Count 3.80 (*) MCV 102.1 (*) MCH 33.7 (*) All other components within normal limits PT-INR SLH - Abnormal; Notable for the following components: PT 15.5 (*) All other components within normal limits TEG 6S PLATELET MAPPING - Abnormal; Notable for the following components: TEGPLM (Max Amplitude) ADP 24.0 (*) TEGPLM (Max Amplitude) AA 13.2 (*) TEGPLM %Inhibition ADP 74.6 (*) TEGPLM %Inhibition AA 96.4 (*) TEGPLM %Aggregation ADP 25.4 (*) TEGPLM % Aggregation AA 3.6 (*) All other components within normal limits TEG 6 GLOBAL HEMOSTASIS W/ LYSIS - Abnormal; Notable for the following components: Citrated Kaolin R (Reaction Time) 3.4 (*) All other components within normal limits URINE DRUG SCREEN IMMUNOASSAY - Abnormal; Notable for the following components: Opiates Urine Positive (*) All other components within normal limits Narrative: The Urine Toxicology Screening Panel does not screen for Propoxyphene, Meprobamate, Carisoprodol, Trazodone, ognm-jbt-entavrz medications and/or volatiles (Acetone, Isopropanol, Methanol or Ethylene Glycol). Ethanol, Salicylate, Acetaminophen, Tricyclic Antidepressants and several therapeutic drugsmay be individually assayed in serum or plasma specimen. Toxicology testing by the [facility] is an aid to medical diagnosisand treatment of patients. No documented chain of custody was maintained. Results are intended to be used for clinical purposes only. URINALYSIS W/MICROSCOPIC NO CULTURE - Abnormal; Notable for the following components: Specific [place] UA 1.044 (*) Blood UA 3+ (*) Bacteria UA 1+ (*) All other components within normal limits Narrative: ALCOHOL ETHYL BLOOD - Normal Narrative: Ethanol Interp <10: None Detected. Depression of [employer]: >100 mg/dl Potentially Critical: >250 mg/dl Potentially Fatal >400 mg/dl Ethanol in the patient's blood will contribute to the osmolar gap. Ethanol's contribution to the osmolar gap can be estimated by dividing the concentration of ethanol in mg/dL by 4.6. This test is for clinical use only and does not equal a ADARSH for legal purposes. TROPONIN-I HIGH SENSITIVE BASELINE + 1HR - Normal TROPONIN-I HIGH SENSITIVE REFLEX 1HOUR PHOSPHORUS BLOOD MAGNESIUM BLOOD BASIC METABOLIC PANEL (CALCIUM TOTAL) CBC W/O DIFFERENTIAL TYPE + SCREEN PANEL WILMA DIRECT ANTIBODY IDENTIFICATION PREPARE RBC LEUKOREDUCED UNIT BLOOD TYPE VERIFICATION - IMAGING: CT HEAD WO CONTRAST - Head Trauma, CSF leak, mental status changes Final Result EXAM: CT HEAD WO CONTRAST, CT FACIAL BONES WO CONTRAST, CT CERVICAL SPINE WO CONTRAST, CT THORACIC SPINE WO CONTRAST, CT LUMBAR SPINE WO CONTRAST, DATE/TIME OF EXAM: 11/01/2023 7:48 PM, LOCATION: [facility] HISTORY: Trauma ADDITIONAL CLINICAL INFORMATION: Ordering Provider [...] measuring up to 8 mm in thickness (6, 01/09), which is associated with a small [...] dependent subsegmental atelectasis of the lung apices. Zljr-io-wxkjxbys calcific atherosclerosis of the carotid bulbs and moderate calcific atherosclerosis of the common carotid arteries. Multiple calcified mediastinal lymph nodes that is suggestive of prior healed granulomatous disease. THORACIC SPINE: ALIGNMENT: Mild kyphosis centered at the T5 level and nvyw-yw-uwybawbb levoconvex curvature of the upper thoracic spine without significant listhesis. No traumatic malalignment. BONES: Age-indeterminate compression fracture deformity of the T5 vertebral body superior endplate associated with a thin sclerotic line and with approximately 30% height loss anteriorly, which may represent an fdetv-mi-wetztluv microtrabecular fracture. Age-indeterminate compression fracture deformity of the T6 vertebral body superior endplate associated with a thin sclerotic line and with approximately 30% height loss centrally, which may represent an yjjih-cf-qcxrwzlk microtrabecular fracture. Chronic-appearing mscxkcf-ku-raec height loss remaining thoracic vertebral bodies. No retropulsion at any level. Osseous structures are markedly demineralized. DISCS: Multilevel mild disc space narrowing. DEGENERATIVE CHANGES: Overall ixka-fj-qtfpskyo multilevel degenerative changes. SPINAL CANAL/NEUROFORAMEN: No significant spinal canal stenosis. High-grade neuroforaminal narrowing at the right T2-T3 through T5-T6 levels and left T10-T11 level in addition to nmce-tp-qetmuvut neuroforaminal narrowing elsewhere. SOFT TISSUES: Visualized soft tissues are normal. OTHER: Dependent atelectasis of the lungs bilaterally. Mildly tortuous thoracic aorta with pybllctt-tf-ksjvuu calcific atherosclerosis. Multiple calcified mediastinal lymph nodes [...] phenomena at all levels. DEGENERATIVE CHANGES: Overall rpdbxuqv-lo-ecrxjj multilevel degenerative change, characterized by varying degrees of posterior disc bulges, ligamentum flavum hypertrophy, and facet arthropathy. SPINAL CANAL/NEUROFORAMEN: Multilevel spinal canal stenoses that is notably mild at the T12-L1 and L2-L3 levels, koohcdiu-ay-lqtcgw at the L3-L4 and L4-L5 levels, and [...] concurrently reported chest, abdomen, and pelvis CT. IMPRESSION: 1.No acute intracranial abnormality. 2.No acute maxillofacial fracture. 3.No acute fracture or traumatic malalignment of the cervical spine. 4.Age-indeterminate compression fracture deformities of the T5 and T6 vertebral bodies resulting in 30% height loss and associated with a thin sclerotic line through the superior endplates at these levels, which may represent dkfpu-qx-npmthmuz microtrabecular fractures. No evidence of retropulsion. Recommend [...] Elliott MD, PhD on 11/01/2023 10:[address] FACIAL BONES WO CONTRAST - Facial trauma, fx suspected, blunt Final Result EXAM: CT HEAD WO CONTRAST, CT FACIAL BONES WO CONTRAST, CT CERVICAL SPINE WO CONTRAST, CT THORACIC SPINE WO CONTRAST, CT LUMBAR SPINE WO CONTRAST, DATE/TIME OF EXAM: 11/01/2023 7:48 PM, LOCATION: [facility] HISTORY: Trauma ADDITIONAL CLINICAL INFORMATION: Ordering Provider [...] x 2.3 cm in the axial plane (5/). OTHER: Mild dependent subsegmental atelectasis of the lung apices. Xqxi-tg-gctfskcm calcific atherosclerosis of the carotid bulbs and moderate calcific atherosclerosis of the common carotid arteries. Multiple calcified mediastinal lymph nodes that is suggestive of prior healed granulomatous disease. THORACIC SPINE: ALIGNMENT: Mild kyphosis centered at the T5 level and ocmv-go-nkmcasxb levoconvex curvature of the upper thoracic spine without significant listhesis. No traumatic malalignment. BONES: Age-indeterminate compression fracture deformity of the T5 vertebral body superior endplate associated with a thin sclerotic line and with approximately 30% height loss anteriorly, which may represent an kqlxp-kc-ttfubovd microtrabecular fracture. Age-indeterminate compression fracture deformity of the T6 vertebral body superior endplate associated with a thin sclerotic line and with approximately 30% height loss centrally, which may represent an xnksm-wu-uktyyuvv microtrabecular fracture. Chronic-appearing yslddmu-rh-nrej height loss remaining thoracic vertebral bodies. No retropulsion at any level. Osseous structures are markedly demineralized. DISCS: Multilevel mild disc space narrowing. DEGENERATIVE CHANGES: Overall jsik-ef-igwltdjw multilevel degenerative changes. SPINAL CANAL/NEUROFORAMEN: No significant spinal canal stenosis. High-grade neuroforaminal narrowing at the right T2-T3 through T5-T6 levels and left T10-T11 level in addition to pzhs-nl-cjnodklv neuroforaminal narrowing elsewhere. SOFT TISSUES: Visualized soft tissues are normal. OTHER: Dependent atelectasis of the lungs bilaterally. Mildly tortuous thoracic aorta with jblohdlh-bf-rffhft calcific atherosclerosis. Multiple calcified mediastinal lymph nodes [...] phenomena at all levels. DEGENERATIVE CHANGES: Overall yqjvxtej-nl-tkbtro multilevel degenerative change, characterized by varying degrees of posterior disc bulges, ligamentum flavum hypertrophy, and facet arthropathy. SPINAL CANAL/NEUROFORAMEN: Multilevel spinal canal stenoses that is notably mild at the T12-L1 and L2-L3 levels, qwamogpl-ny-hdklyb at the L3-L4 and L4-L5 levels, and [...] concurrently reported chest, abdomen, and pelvis CT. IMPRESSION: 1.No acute intracranial abnormality. 2.No acute maxillofacial fracture. 3.No acute fracture or traumatic malalignment of the cervical spine. 4.Age-indeterminate compression fracture deformities of the T5 and T6 vertebral bodies resulting in 30% height loss and associated with a thin sclerotic line through the superior endplates at these levels, which may represent ybigg-jx-kmyvfuok microtrabecular fractures. No evidence of retropulsion. Recommend [...] Elliott MD, PhD on 11/01/2023 10:[address] CHEST ABDOMEN PELVIS W CONT - Abdomen-pelvis trauma, blunt or penetrating Final Result PROCEDURE: CT CHEST ABDOMEN PELVIS W CONT, DATE/TIME OF EXAM: 11/01/2023 7:48 PM, LOCATION [facility] INDICATION: Trauma ADDITIONAL CLINICAL INFORMATION: Ordering Provider [...] pelvis. > Dictated by Paxton Whitley DO (residential mental health worker). I, Milad Mcnulty MD have personally reviewed and interpreted this examination/study. > Interpreting Provider: Milad Mcnulty MD on 11/01/2023 10:[address] THORACIC SPINE WO CONTRAST - T/L-spine trauma, spine fracture Final Result EXAM: CT HEAD WO CONTRAST, CT FACIAL BONES WO CONTRAST, CT CERVICAL SPINE WO CONTRAST, CT THORACIC SPINE WO CONTRAST, CT LUMBAR SPINE WO CONTRAST, DATE/TIME OF EXAM: 11/01/2023 7:48 PM, LOCATION: [facility] HISTORY: Trauma ADDITIONAL CLINICAL INFORMATION: Ordering Provider [...] dependent subsegmental atelectasis of the lung apices. Sxcs-ef-lkhdipea calcific atherosclerosis of the carotid bulbs and moderate calcific atherosclerosis of the common carotid arteries. Multiple calcified mediastinal lymph nodes that is suggestive of prior healed granulomatous disease. THORACIC SPINE: ALIGNMENT: Mild kyphosis centered at the T5 level and mqxn-th-idbpudlj levoconvex curvature of the upper thoracic spine without significant listhesis. No traumatic malalignment. BONES: Age-indeterminate compression fracture deformity of the T5 vertebral body superior endplate associated with a thin sclerotic line and with approximately 30% height loss anteriorly, which may represent an qzyuv-dc-lttrhxjp microtrabecular fracture. Age-indeterminate compression fracture deformity of the T6 vertebral body superior endplate associated with a thin sclerotic line and with approximately 30% height loss centrally, which may represent an ygrwm-cm-vqzjckpj microtrabecular fracture. Chronic-appearing grqhnto-rc-rxyn height loss remaining thoracic vertebral bodies. No retropulsion at any level. Osseous structures are markedly demineralized. DISCS: Multilevel mild disc space narrowing. DEGENERATIVE CHANGES: Overall nuoh-im-brcciirs multilevel degenerative changes. SPINAL CANAL/NEUROFORAMEN: No significant spinal canal stenosis. High-grade neuroforaminal narrowing at the right T2-T3 through T5-T6 levels and left T10-T11 level in addition to code-yb-guexugar neuroforaminal narrowing elsewhere. SOFT TISSUES: Visualized soft tissues are normal. OTHER: Dependent atelectasis of the lungs bilaterally. Mildly tortuous thoracic aorta with pwcvyhkk-so-rwunqg calcific atherosclerosis. Multiple calcified mediastinal lymph nodes [...] phenomena at all levels. DEGENERATIVE CHANGES: Overall sltysuuc-no-kfqsem multilevel degenerative change, characterized by varying degrees of posterior disc bulges, ligamentum flavum hypertrophy, and facet arthropathy. SPINAL CANAL/NEUROFORAMEN: Multilevel spinal canal stenoses that is notably mild at the T12-L1 and L2-L3 levels, exsqkgwm-rx-qbetzo at the L3-L4 and L4-L5 levels, and [...] concurrently reported chest, abdomen, and pelvis CT. IMPRESSION: 1.No acute intracranial abnormality. 2.No acute maxillofacial fracture. 3.No acute fracture or traumatic malalignment of the cervical spine. 4.Age-indeterminate compression fracture deformities of the T5 and T6 vertebral bodies resulting in 30% height loss and associated with a thin sclerotic line through the superior endplates at these levels, which may represent yzcqf-bx-bfgfrjzo microtrabecular fractures. No evidence of retropulsion. Recommend [...] Elliott MD, PhD on 11/01/2023 10:[address] LUMBAR SPINE WO CONTRAST - T/L-spine trauma, Spine fracture Final Result EXAM: CT HEAD WO CONTRAST, CT FACIAL BONES WO CONTRAST, CT CERVICAL SPINE WO CONTRAST, CT THORACIC SPINE WO CONTRAST, CT LUMBAR SPINE WO CONTRAST, DATE/TIME OF EXAM: 11/01/2023 7:48 PM, LOCATION: [facility] HISTORY: Trauma ADDITIONAL CLINICAL INFORMATION: Ordering Provider [...] dependent subsegmental atelectasis of the lung apices. Lgom-hj-utnlgrza calcific atherosclerosis of the carotid bulbs and moderate calcific atherosclerosis of the common carotid arteries. Multiple calcified mediastinal lymph nodes that is suggestive of prior healed granulomatous disease. THORACIC SPINE: ALIGNMENT: Mild kyphosis centered at the T5 level and qeog-no-ukttufxd levoconvex curvature of the upper thoracic spine without significant listhesis. No traumatic malalignment. BONES: Age-indeterminate compression fracture deformity of the T5 vertebral body superior endplate associated with a thin sclerotic line and with approximately 30% height loss anteriorly, which may represent an iuuiu-ew-wofoimyr microtrabecular fracture. Age-indeterminate compression fracture deformity of the T6 vertebral body superior endplate associated with a thin sclerotic line and with approximately 30% height loss centrally, which may represent an brmfu-ym-fwrfsqti microtrabecular fracture. Chronic-appearing ngwwyps-oi-ijxu height loss remaining thoracic vertebral bodies. No retropulsion at any level. Osseous structures are markedly demineralized. DISCS: Multilevel mild disc space narrowing. DEGENERATIVE CHANGES: Overall fskl-tm-orqsrqdx multilevel degenerative changes. SPINAL CANAL/NEUROFORAMEN: No significant spinal canal stenosis. High-grade neuroforaminal narrowing at the right T2-T3 through T5-T6 levels and left T10-T11 level in addition to ojwl-pe-cutlqyzv neuroforaminal narrowing elsewhere. SOFT TISSUES: Visualized soft tissues are normal. OTHER: Dependent atelectasis of the lungs bilaterally. Mildly tortuous thoracic aorta with njnvfapk-nf-gsnawy calcific atherosclerosis. Multiple calcified mediastinal lymph nodes [...] phenomena at all levels. DEGENERATIVE CHANGES: Overall lcceulhq-uh-qemdud multilevel degenerative change, characterized by varying degrees of posterior disc bulges, ligamentum flavum hypertrophy, and facet arthropathy. SPINAL CANAL/NEUROFORAMEN: Multilevel spinal canal stenoses that is notably mild at the T12-L1 and L2-L3 levels, abjchahm-bu-kpirov at the L3-L4 and L4-L5 levels, and [...] concurrently reported chest, abdomen, and pelvis CT. IMPRESSION: 1.No acute intracranial abnormality. 2.No acute maxillofacial fracture. 3.No acute fracture or traumatic malalignment of the cervical spine. 4.Age-indeterminate compression fracture deformities of the T5 and T6 vertebral bodies resulting in 30% height loss and associated with a thin sclerotic line through the superior endplates at these levels, which may represent rbjvo-jh-kmbjeths microtrabecular fractures. No evidence of retropulsion. Recommend [...] Elliott MD, PhD on 11/01/2023 10:[address] CERVICAL SPINE WO CONTRAST Final Result EXAM: CT HEAD WO CONTRAST, CT FACIAL BONES WO CONTRAST, CT CERVICAL SPINE WO CONTRAST, CT THORACIC SPINE WO CONTRAST, CT LUMBAR SPINE WO CONTRAST, DATE/TIME OF EXAM: 11/01/2023 7:48 PM, LOCATION: [facility] HISTORY: Trauma ADDITIONAL CLINICAL INFORMATION: Ordering Provider [...] dependent subsegmental atelectasis of the lung apices. Ieio-oh-frsxhhyj calcific atherosclerosis of the carotid bulbs and moderate calcific atherosclerosis of the common carotid arteries. Multiple calcified mediastinal lymph nodes that is suggestive of prior healed granulomatous disease. THORACIC SPINE: ALIGNMENT: Mild kyphosis centered at the T5 level and ymtp-fu-gyzjqeyj levoconvex curvature of the upper thoracic spine without significant listhesis. No traumatic malalignment. BONES: Age-indeterminate compression fracture deformity of the T5 vertebral body superior endplate associated with a thin sclerotic line and with approximately 30% height loss anteriorly, which may represent an eddjx-cx-kykpdzmy microtrabecular fracture. Age-indeterminate compression fracture deformity of the T6 vertebral body superior endplate associated with a thin sclerotic line and with approximately 30% height loss centrally, which may represent an qwdve-hb-brqhdewv microtrabecular fracture. Chronic-appearing vmsqfuc-wu-stot height loss remaining thoracic vertebral bodies. No retropulsion at any level. Osseous structures are markedly demineralized. DISCS: Multilevel mild disc space narrowing. DEGENERATIVE CHANGES: Overall wbwp-rc-mkwhwcxh multilevel degenerative changes. SPINAL CANAL/NEUROFORAMEN: No significant spinal canal stenosis. High-grade neuroforaminal narrowing at the right T2-T3 through T5-T6 levels and left T10-T11 level in addition to nfgd-yf-rpnfdgvs neuroforaminal narrowing elsewhere. SOFT TISSUES: Visualized soft tissues are normal. OTHER: Dependent atelectasis of the lungs bilaterally. Mildly tortuous thoracic aorta with tpenexsm-ra-ghnuvf calcific atherosclerosis. Multiple calcified mediastinal lymph nodes [...] phenomena at all levels. DEGENERATIVE CHANGES: Overall fwpqztzf-yi-aijtig multilevel degenerative change, characterized by varying degrees of posterior disc bulges, ligamentum flavum hypertrophy, and facet arthropathy. SPINAL CANAL/NEUROFORAMEN: Multilevel spinal canal stenoses that is notably mild at the T12-L1 and L2-L3 levels, svrgajra-sd-zxdzky at the L3-L4 and L4-L5 levels, and [...] concurrently reported chest, abdomen, and pelvis CT. IMPRESSION: 1.No acute intracranial abnormality. 2.No acute maxillofacial fracture. 3.No acute fracture or traumatic malalignment of the cervical spine. 4.Age-indeterminate compression fracture deformities of the T5 and T6 vertebral bodies resulting in 30% height loss and associated with a thin sclerotic line through the superior endplates at these levels, which may represent swony-fl-yeyaxzlu microtrabecular fractures. No evidence of retropulsion. Recommend [...] Elliott MD, PhD on 11/01/2023 10:38 PM XR PELVIS 1 OR 2VW Final Result PROCEDURE: XR PELVIS 1 OR 2VW, DATE/TIME OF EXAM: 11/01/2023 7:10 PM, LOCATION [facility] INDICATION: T14.90XA: Trauma ADDITIONAL CLINICAL INFORMATION: Ordering [...] Report dictated by Sarah Keith Dr, MD (residential mental health worker). I, Loreto Bone MD have personally reviewed and interpreted this examination/study. > Interpreting Provider: Loreto Bone MD on 11/01/2023 9:17 PM XR CHEST 1VW PORTABLE Final Result PROCEDURE: XR CHEST 1VW PORTABLE, DATE/TIME OF EXAM: 11/01/2023 7:10 PM, LOCATION [facility] INDICATION: Trauma ADDITIONAL CLINICAL INFORMATION: COMPARISON: None. FINDINGS/IMPRESSION: Hazy appearance of the bilateral lungs may be secondary to atelectasis versus multifocal infection. No pneumothorax. The heart and mediastinum appear enlarged which may be due to portable technique however cannot rule out vascular injury in the setting of trauma. This will be better present CT chest abdomen pelvis. Calcified calcification of the aortic arch. No displaced fractures identified. Rim-like calcification seen overlapping the right chest tube, likely calcified breast implant. Report dictated by Sarah Keith Dr, MD (residential mental health worker). I, Loreto Bone MD have personally reviewed and interpreted this examination/study. > Interpreting Provider: Loreto Bone MD on 11/01/2023 9:17 PM MRI THORACIC SPINE WO CONTRAST (Results Pending) PENDING: Trauma Recs. PLAN: Pending Admit to ICU or Floor. Vitals: 11/01/23 1857 11/01/23 1906 11/01/23 1935 11/02/23 0005 BP: (!) 191/125 (!) 211/91 178/68 157/58 Pulse: 62 64 64 54 Resp: 16 15 13 16 Temp: 97.2 ??F (36.2 ??C) SpO2: 99% 97% 95% 94% Weight: 113.4 kg (250 lb) Height: 1.6 m (5' 3 ) ED Course and Re-Evaluations: (All Labs/Imaging/ECG, other diagnostics independently interpreted by me.) ED Course as of 11/03/232014 Sat November 01, 2023 2030 Spoke with radiology. Pelvis XR concerning for right femoral neck lucency. CT C/A/P does not confirm femoral neck fx. [CL] 2114 C-spine cleared [CL] 2122 NSGY at bedside for T-spine compression fx. Pt with midline T-spine tenderness. Pending NSGY final recommendations [CL] 220 Signed out to on-coming team [CK] ED Course User Index [CK] Mckay Church MD [CL] Don Michelle, DO Clinical Impressions as of 11/03/232014 Trauma Closed fracture of multiple ribs of left side, initial encounter Other closed fracture of thoracic vertebra, unspecified thoracic vertebral level, initial encounter(HCC) 1:26 AM- After discussion with Trauma Surgery, the patient will be admitted to their service for further management of Rib Fractures. Admitting provider is Dr. Quach. - I have reviewed the diagnostic findings with the patient and they have had an opportunity to ask me any questions they have about care, diagnosis, and reason for admission. The patient states understanding and agrees to admission. 6:00 AM- PATRICIA to Dr. Brito Clinical Impression: 1. Closed fracture of multiple ribs of left side, initial encounter 2. Trauma 3. Other closed fracture of thoracic vertebra, unspecified thoracic vertebral level, initial encounter ([facility]) Disposition: PATRICIA To Dr. Brito By signing my name below, I, Ketanchitra Hoff, attest that this documentation has been prepared underthe direction and in the presence of Dr. Hill. Signed: Torres Nunez. Gabriel Hill MD Division of Emergency Medicine [facility] 11/02/2023 6:08 AM * January Rodriguez RN - 11/01/2023 9:42 PM CDT Pt placed on purewick at this time. * Jamil Fuentes RN - 11/01/2023 8:40 PM CDT Bed: [facility] Expected date: Expected time: Means of arrival: Comments: T5 when clean * Mckay Church MD - 11/01/2023 7:30 PM CDT EMERGENCY MEDICINE ATTENDING NOTE Resident Attestation Note I have personally seen, examined and been fully involved in the management of this patient with theresident. I confirm history, exam, assessment and plan discussed with the resident, and have reviewed their note. In addition I note/revise: Seen with ED Resident: Miguel Angel Oh HPI: 83-year-old female with a history of hypertension, and AFib on Eliquis, who presents emergency department after fall. Patient had unwitnessed fall. Patient step-off curb and fell onto the concrete. Possible loss consciousness. Had a cut to the back of her head and complaining of back pain and headache. Was not able to ambulate after the fall. EMS picked her up and she was hypertensive and broughtto the emergency department. Patient still complaining of back pain and headache. No numbness or tingling in his arms or legs. Left-sided chest discomfort. Limted physical exam: Vitals: 11/02/23 0600 11/02/23 0615 11/02/23 0630 11/02/23 0645 BP: (!) (D) 189/81 Pulse: (D) 57 (D) 57 (D) 58 (D) 63 Resp: (D) 14 (D) 20 (D) 22 (D) 21 Temp: SpO2: (D) 96% (D) 93% (D) 94% (D) 95% GENERAL: On stretcher with C-collar in place. SKIN: Warm and well perfused. 1 cm posterior scalp laceration HEAD: See skin. normocephalic without edema, discoloration or evidence of trauma. Facial bones without deformities or tenderness. EYES: PERRL. No scleral icterus or conjunctival injection. Extraocular muscles intact without nystagmus or diplopia. EARS: Normal appearing pinnae. NOSE: No discharge, tenderness, laxity. MOUTH: No malocclusion or trismus. Moist mucus membranes without blood. NECK: Trachea midline. No discolorations or edema. Neck immobilized in cervical collar. CV: Regular rate and rhythm PV: Radial pulses 2+ bilaterally and symmetric. Dorsalis pedis pulses 2+ bilaterally and symmetric.2+ capillary refill. No extremity edema. CHEST: No abrasions or ecchymosis. Chest symmetric with respirations. Left lateral chest wall tenderness. No crepitus. Lungs are clear to auscultation bilaterally. No rales, rhonchi, wheezing or stridor. ABDOMEN: No ecchymosis or abrasions. Soft, nondistended, nontender. BACK: No abrasions, skin openings, or ecchymosis. Spine without bony tenderness, no step offs. PELVIC: Pelvis stable, nontender to lateral compression and palpation of symphysis pubis. RECTAL: Tenderness to her right buttock : Normal external genitalia without blood at meatus. No ecchymosis or edema. MSK: No gross deformities or discolorations or lesions. Tolerates full range of motion of extremities without tenderness. NEURO: Alert and oriented to person, place, and time. GCS 15. CN II-XII intact. Sensation grossly intact. Strength 5/5 in bilateral UE and LE. Finger to nose intact bilaterally. MDM: 1. Fall 2. On blood thinners 3. Chest wall tenderness 4. Buttock tenderness Differential multi system trauma including head bleed hip fracture rib fractures Plan: Workup for syncope workup for trauma level 2 trauma consult. Including CTs and labs CT HEAD WO CONTRAST - Head Trauma, CSF leak, mental status changes Final Result EXAM: CT HEAD WO CONTRAST, CT FACIAL BONES WO CONTRAST, CT CERVICAL SPINE WO CONTRAST, CT THORACIC SPINE WO CONTRAST, CT LUMBAR SPINE WO CONTRAST, DATE/TIME OF EXAM: 11/01/2023 7:48 PM, LOCATION: [facility] HISTORY: Trauma ADDITIONAL CLINICAL INFORMATION: Ordering Provider [...] up to 8 mm in thickness (, 7/20), which is associated with a small [...] dependent subsegmental atelectasis of the lung apices. Pvig-yi-fdkttmce calcific atherosclerosis of the carotid bulbs and moderate calcific atherosclerosis of the common carotid arteries. Multiple calcified mediastinal lymph nodes that is suggestive of prior healed granulomatous disease. THORACIC SPINE: ALIGNMENT: Mild kyphosis centered at the T5 level and wpre-ao-qiiateuy levoconvex curvature of the upper thoracic spine without significant listhesis. No traumatic malalignment. BONES: Age-indeterminate compression fracture deformity of the T5 vertebral body superior endplate associated with a thin sclerotic line and with approximately 30% height loss anteriorly, which may represent an hmzth-ak-txtccbqp microtrabecular fracture. Age-indeterminate compression fracture deformity of the T6 vertebral body superior endplate associated with a thin sclerotic line and with approximately 30% height loss centrally, which may represent an ronmx-ix-fntbfnqn microtrabecular fracture. Chronic-appearing rmduvst-ra-kjzc height loss remaining thoracic vertebral bodies. No retropulsion at any level. Osseous structures are markedly demineralized. DISCS: Multilevel mild disc space narrowing. DEGENERATIVE CHANGES: Overall ljfw-ck-rjwdfvel multilevel degenerative changes. SPINAL CANAL/NEUROFORAMEN: No significant spinal canal stenosis. High-grade neuroforaminal narrowing at the right T2-T3 through T5-T6 levels and left T10-T11 level in addition to cqgg-qc-ymrhwerr neuroforaminal narrowing elsewhere. SOFT TISSUES: Visualized soft tissues are normal. OTHER: Dependent atelectasis of the lungs bilaterally. Mildly tortuous thoracic aorta with phlftgvo-np-ihmzvq calcific atherosclerosis. Multiple calcified mediastinal lymph nodes [...] phenomena at all levels. DEGENERATIVE CHANGES: Overall ybgpbubl-le-tajtqz multilevel degenerative change, characterized by varying degrees of posterior disc bulges, ligamentum flavum hypertrophy, and facet arthropathy. SPINAL CANAL/NEUROFORAMEN: Multilevel spinal canal stenoses that is notably mild at the T12-L1 and L2-L3 levels, jiqlrynv-fw-lxrvst at the L3-L4 and L4-L5 levels, and [...] concurrently reported chest, abdomen, and pelvis CT. IMPRESSION: 1.No acute intracranial abnormality. 2.No acute maxillofacial fracture. 3.No acute fracture or traumatic malalignment of the cervical spine. 4.Age-indeterminate compression fracture deformities of the T5 and T6 vertebral bodies resulting in 30% height loss and associated with a thin sclerotic line through the superior endplates at these levels, which may represent lstxt-wy-abwvfpsz microtrabecular fractures. No evidence of retropulsion. Recommend [...] Elliott MD, PhD on 11/01/2023 10:[address] FACIAL BONES WO CONTRAST - Facial trauma, fx suspected, blunt Final Result EXAM: CT HEAD WO CONTRAST, CT FACIAL BONES WO CONTRAST, CT CERVICAL SPINE WO CONTRAST, CT THORACIC SPINE WO CONTRAST, CT LUMBAR SPINE WO CONTRAST, DATE/TIME OF EXAM: 11/01/2023 7:48 PM, LOCATION: [facility] HISTORY: Trauma ADDITIONAL CLINICAL INFORMATION: Ordering Provider [...] dependent subsegmental atelectasis of the lung apices. Vbiu-um-ktqutosa calcific atherosclerosis of the carotid bulbs and moderate calcific atherosclerosis of the common carotid arteries. Multiple calcified mediastinal lymph nodes that is suggestive of prior healed granulomatous disease. THORACIC SPINE: ALIGNMENT: Mild kyphosis centered at the T5 level and rasq-ql-pvagawoi levoconvex curvature of the upper thoracic spine without significant listhesis. No traumatic malalignment. BONES: Age-indeterminate compression fracture deformity of the T5 vertebral body superior endplate associated with a thin sclerotic line and with approximately 30% height loss anteriorly, which may represent an cfxqn-ga-zbzvzcdh microtrabecular fracture. Age-indeterminate compression fracture deformity of the T6 vertebral body superior endplate associated with a thin sclerotic line and with approximately 30% height loss centrally, which may represent an xmpgh-gw-taqfmdky microtrabecular fracture. Chronic-appearing uedmumy-dk-picu height loss remaining thoracic vertebral bodies. No retropulsion at any level. Osseous structures are markedly demineralized. DISCS: Multilevel mild disc space narrowing. DEGENERATIVE CHANGES: Overall iqju-vc-wztuskul multilevel degenerative changes. SPINAL CANAL/NEUROFORAMEN: No significant spinal canal stenosis. High-grade neuroforaminal narrowing at the right T2-T3 through T5-T6 levels and left T10-T11 level in addition to hjrp-ij-zkobzclj neuroforaminal narrowing elsewhere. SOFT TISSUES: Visualized soft tissues are normal. OTHER: Dependent atelectasis of the lungs bilaterally. Mildly tortuous thoracic aorta with oyuqqbrz-fc-cedhxl calcific atherosclerosis. Multiple calcified mediastinal lymph nodes [...] phenomena at all levels. DEGENERATIVE CHANGES: Overall otsatmqp-gm-yqurnc multilevel degenerative change, characterized by varying degrees of posterior disc bulges, ligamentum flavum hypertrophy, and facet arthropathy. SPINAL CANAL/NEUROFORAMEN: Multilevel spinal canal stenoses that is notably mild at the T12-L1 and L2-L3 levels, tjtushxb-hm-cbcaqu at the L3-L4 and L4-L5 levels, and [...] concurrently reported chest, abdomen, and pelvis CT. IMPRESSION: 1.No acute intracranial abnormality. 2.No acute maxillofacial fracture. 3.No acute fracture or traumatic malalignment of the cervical spine. 4.Age-indeterminate compression fracture deformities of the T5 and T6 vertebral bodies resulting in 30% height loss and associated with a thin sclerotic line through the superior endplates at these levels, which may represent vwtzv-kr-pvkgbxgg microtrabecular fractures. No evidence of retropulsion. Recommend [...] Elliott MD, PhD on 11/01/2023 10:[address] CHEST ABDOMEN PELVIS W CONT - Abdomen-pelvis trauma, blunt or penetrating Final Result PROCEDURE: CT CHEST ABDOMEN PELVIS W CONT, DATE/TIME OF EXAM: 11/01/2023 7:48 PM, LOCATION [facility] INDICATION: Trauma ADDITIONAL CLINICAL INFORMATION: Ordering Provider [...] abdomen, or pelvis. > Dictated by Paxton Wihtley DO (residential mental health worker). I, Milad Mcnulty MD have personally reviewed and interpreted this examination/study. > Interpreting Provider: Milad Mcnulty MD on 11/01/2023 10:[address] THORACIC SPINE WO CONTRAST - T/L-spine trauma, spine fracture Final Result EXAM: CT HEAD WO CONTRAST, CT FACIAL BONES WO CONTRAST, CT CERVICAL SPINE WO CONTRAST, CT THORACIC SPINE WO CONTRAST, CT LUMBAR SPINE WO CONTRAST, DATE/TIME OF EXAM: 11/01/2023 7:48 PM, LOCATION: [facility] HISTORY: Trauma ADDITIONAL CLINICAL INFORMATION: Ordering Provider [...] measuring up to 8 mm in thickness (6, 720), which is associated with a small laceration. [...] dependent subsegmental atelectasis of the lung apices. Uyzt-xg-qmhomexk calcific atherosclerosis of the carotid bulbs and moderate calcific atherosclerosis of the common carotid arteries. Multiple calcified mediastinal lymph nodes that is suggestive of prior healed granulomatous disease. THORACIC SPINE: ALIGNMENT: Mild kyphosis centered at the T5 level and dzle-bi-tpuhxqoj levoconvex curvature of the upper thoracic spine without significant listhesis. No traumatic malalignment. BONES: Age-indeterminate compression fracture deformity of the T5 vertebral body superior endplate associated with a thin sclerotic line and with approximately 30% height loss anteriorly, which may represent an pghgl-cd-sohrukth microtrabecular fracture. Age-indeterminate compression fracture deformity of the T6 vertebral body superior endplate associated with a thin sclerotic line and with approximately 30% height loss centrally, which may represent an rradv-de-cvrqkuxh microtrabecular fracture. Chronic-appearing lvrnrur-ip-bfnu height loss remaining thoracic vertebral bodies. No retropulsion at any level. Osseous structures are markedly demineralized. DISCS: Multilevel mild disc space narrowing. DEGENERATIVE CHANGES: Overall irnx-bo-vpawajbs multilevel degenerative changes. SPINAL CANAL/NEUROFORAMEN: No significant spinal canal stenosis. High-grade neuroforaminal narrowing at the right T2-T3 through T5-T6 levels and left T10-T11 level in addition to yttf-jo-rpopcahy neuroforaminal narrowing elsewhere. SOFT TISSUES: Visualized soft tissues are normal. OTHER: Dependent atelectasis of the lungs bilaterally. Mildly tortuous thoracic aorta with tpdpipcm-qp-tsqdxa calcific atherosclerosis. Multiple calcified mediastinal lymph nodes [...] phenomena at all levels. DEGENERATIVE CHANGES: Overall lpgexwwa-lm-ksongi multilevel degenerative change, characterized by varying degrees of posterior disc bulges, ligamentum flavum hypertrophy, and facet arthropathy. SPINAL CANAL/NEUROFORAMEN: Multilevel spinal canal stenoses that is notably mild at the T12-L1 and L2-L3 levels, cheqhszw-vg-dbusaa at the L3-L4 and L4-L5 levels, and [...] concurrently reported chest, abdomen, and pelvis CT. IMPRESSION: 1.No acute intracranial abnormality. 2.No acute maxillofacial fracture. 3.No acute fracture or traumatic malalignment of the cervical spine. 4.Age-indeterminate compression fracture deformities of the T5 and T6 vertebral bodies resulting in 30% height loss and associated with a thin sclerotic line through the superior endplates at these levels, which may represent wavkf-gt-wsqyilwt microtrabecular fractures. No evidence of retropulsion. Recommend [...] Elliott MD, PhD on 11/01/2023 10:[address] LUMBAR SPINE WO CONTRAST - T/L-spine trauma, Spine fracture Final Result EXAM: CT HEAD WO CONTRAST, CT FACIAL BONES WO CONTRAST, CT CERVICAL SPINE WO CONTRAST, CT THORACIC SPINE WO CONTRAST, CT LUMBAR SPINE WO CONTRAST, DATE/TIME OF EXAM: 11/01/2023 7:48 PM, LOCATION: [facility] HISTORY: Trauma ADDITIONAL CLINICAL INFORMATION: Ordering Provider [...] dependent subsegmental atelectasis of the lung apices. Rbbx-ro-ucgtxozd calcific atherosclerosis of the carotid bulbs and moderate calcific atherosclerosis of the common carotid arteries. Multiple calcified mediastinal lymph nodes that is suggestive of prior healed granulomatous disease. THORACIC SPINE: ALIGNMENT: Mild kyphosis centered at the T5 level and cmlw-vc-vobjepuz levoconvex curvature of the upper thoracic spine without significant listhesis. No traumatic malalignment. BONES: Age-indeterminate compression fracture deformity of the T5 vertebral body superior endplate associated with a thin sclerotic line and with approximately 30% height loss anteriorly, which may represent an kkicc-py-vhklxsan microtrabecular fracture. Age-indeterminate compression fracture deformity of the T6 vertebral body superior endplate associated with a thin sclerotic line and with approximately 30% height loss centrally, which may represent an cmotz-ek-jbjrvbqo microtrabecular fracture. Chronic-appearing vjivrbl-is-xoxx height loss remaining thoracic vertebral bodies. No retropulsion at any level. Osseous structures are markedly demineralized. DISCS: Multilevel mild disc space narrowing. DEGENERATIVE CHANGES: Overall fodd-bq-twrludgj multilevel degenerative changes. SPINAL CANAL/NEUROFORAMEN: No significant spinal canal stenosis. High-grade neuroforaminal narrowing at the right T2-T3 through T5-T6 levels and left T10-T11 level in addition to ypuj-ae-tomnuqmw neuroforaminal narrowing elsewhere. SOFT TISSUES: Visualized soft tissues are normal. OTHER: Dependent atelectasis of the lungs bilaterally. Mildly tortuous thoracic aorta with dxzuibwg-kk-ppjcet calcific atherosclerosis. Multiple calcified mediastinal lymph nodes [...] phenomena at all levels. DEGENERATIVE CHANGES: Overall xvvjhrmt-nc-hwpgzc multilevel degenerative change, characterized by varying degrees of posterior disc bulges, ligamentum flavum hypertrophy, and facet arthropathy. SPINAL CANAL/NEUROFORAMEN: Multilevel spinal canal stenoses that is notably mild at the T12-L1 and L2-L3 levels, mxebduzw-np-zibitz at the L3-L4 and L4-L5 levels, and [...] concurrently reported chest, abdomen, and pelvis CT. IMPRESSION: 1.No acute intracranial abnormality. 2.No acute maxillofacial fracture. 3.No acute fracture or traumatic malalignment of the cervical spine. 4.Age-indeterminate compression fracture deformities of the T5 and T6 vertebral bodies resulting in 30% height loss and associated with a thin sclerotic line through the superior endplates at these levels, which may represent kjsbh-eh-pfjwovko microtrabecular fractures. No evidence of retropulsion. Recommend [...] Elliott MD, PhD on 11/01/2023 10:[address] CERVICAL SPINE WO CONTRAST Final Result EXAM: CT HEAD WO CONTRAST, CT FACIAL BONES WO CONTRAST, CT CERVICAL SPINE WO CONTRAST, CT THORACIC SPINE WO CONTRAST, CT LUMBAR SPINE WO CONTRAST, DATE/TIME OF EXAM: 11/01/2023 7:48 PM, LOCATION: [facility] HISTORY: Trauma ADDITIONAL CLINICAL INFORMATION: Ordering Provider [...] dependent subsegmental atelectasis of the lung apices. Yoik-uc-nfkgalxo calcific atherosclerosis of the carotid bulbs and moderate calcific atherosclerosis of the common carotid arteries. Multiple calcified mediastinal lymph nodes that is suggestive of prior healed granulomatous disease. THORACIC SPINE: ALIGNMENT: Mild kyphosis centered at the T5 level and qmct-ob-zfyfohjh levoconvex curvature of the upper thoracic spine without significant listhesis. No traumatic malalignment. BONES: Age-indeterminate compression fracture deformity of the T5 vertebral body superior endplate associated with a thin sclerotic line and with approximately 30% height loss anteriorly, which may represent an wpfiv-rs-kqxdmnsb microtrabecular fracture. Age-indeterminate compression fracture deformity of the T6 vertebral body superior endplate associated with a thin sclerotic line and with approximately 30% height loss centrally, which may represent an gldaj-fw-ishoptyb microtrabecular fracture. Chronic-appearing nkvezfl-fb-lzzc height loss remaining thoracic vertebral bodies. No retropulsion at any level. Osseous structures are markedly demineralized. DISCS: Multilevel mild disc space narrowing. DEGENERATIVE CHANGES: Overall mlvq-wc-wqiuehxy multilevel degenerative changes. SPINAL CANAL/NEUROFORAMEN: No significant spinal canal stenosis. High-grade neuroforaminal narrowing at the right T2-T3 through T5-T6 levels and left T10-T11 level in addition to gvqk-wr-vprqmxae neuroforaminal narrowing elsewhere. SOFT TISSUES: Visualized soft tissues are normal. OTHER: Dependent atelectasis of the lungs bilaterally. Mildly tortuous thoracic aorta with oxtcmyga-qe-ozwgun calcific atherosclerosis. Multiple calcified mediastinal lymph nodes [...] phenomena at all levels. DEGENERATIVE CHANGES: Overall jamdgdrg-jf-ympnrq multilevel degenerative change, characterized by varying degrees of posterior disc bulges, ligamentum flavum hypertrophy, and facet arthropathy. SPINAL CANAL/NEUROFORAMEN: Multilevel spinal canal stenoses that is notably mild at the T12-L1 and L2-L3 levels, mbiklhzr-wg-jhdryq at the L3-L4 and L4-L5 levels, and [...] concurrently reported chest, abdomen, and pelvis CT. IMPRESSION: 1.No acute intracranial abnormality. 2.No acute maxillofacial fracture. 3.No acute fracture or traumatic malalignment of the cervical spine. 4.Age-indeterminate compression fracture deformities of the T5 and T6 vertebral bodies resulting in 30% height loss and associated with a thin sclerotic line through the superior endplates at these levels, which may represent shenz-tr-sxtyhxeg microtrabecular fractures. No evidence of retropulsion. Recommend [...] Elliott MD, PhD on 11/01/2023 10:38 PM XR PELVIS 1 OR 2VW Final Result PROCEDURE: XR PELVIS 1 OR 2VW, DATE/TIME OF EXAM: 11/01/2023 7:10 PM, LOCATION [facility] INDICATION: T14.90XA: Trauma ADDITIONAL CLINICAL INFORMATION: Ordering [...] Report dictated by Sarah Keith Dr, MD (residential mental health worker). Loreto Jacques MD have personally reviewed and interpreted this examination/study. > Interpreting Provider: Loreto Bone MD on 11/01/2023 9:17 PM XR CHEST 1VW PORTABLE Final Result PROCEDURE: XR CHEST 1VW PORTABLE, DATE/TIME OF EXAM: 11/01/2023 7:10 PM, LOCATION [facility] INDICATION: Trauma ADDITIONAL CLINICAL INFORMATION: COMPARISON: None. FINDINGS/IMPRESSION: Hazy appearance of the bilateral lungs may be secondary to atelectasis versus multifocal infection. No pneumothorax. The heart and mediastinum appear enlarged which may be due to portable technique however cannot rule out vascular injury in the setting of trauma. This will be better present CT chest abdomen pelvis. Calcified calcification of the aortic arch. No displaced fractures identified. Rim-like calcification seen overlapping the right chest tube, likely calcified breast implant. Report dictated by Sarah Keith Dr, MD (residential mental health worker). Loreto Jacques MD have personally reviewed and interpreted this examination/study. > Interpreting Provider: Loreto Bone MD on 11/01/2023 9:17 PM MRI THORACIC SPINE WO CONTRAST (Results Pending) ED course: ED Course as of 11/02/23 0655 Sat November 01, 20232029 Spoke with radiology. Pelvis XR concerning for right femoral neck lucency. CT C/A/P does not confirm femoral neck fx. [CL] 2114 C-spine cleared [CL] 2122 NSGY at bedside for T-spine compression fx. Pt with midline T-spine tenderness. Pending NSGY final recommendations [CL] 2199 Signed out to on-coming team [CK] ED Course User Index [CK] Mckay Church MD [CL] Don Michelle DO Clinical Impressions as of 11/02/23 0655 Trauma Closed fracture of multiple ribs of left side, initial encounter Other closed fracture of thoracic vertebra, unspecified thoracic vertebral level, initial encounter(HCC) ED Clinical Impression: 1. Closed fracture of multiple ribs of left side, initial encounter 2. Trauma 3. Other closed fracture of thoracic vertebra, unspecified thoracic vertebral level, initial encounter ([facility]) Mckay Church MD Emergency Medicine Department of Surgery * Don Michelle DO - 11/01/2023 7:22 PM CDT EMERGENCY MEDICINE RESIDENT NOTE History Chief Complaint Patient presents with Fall Pt BIBEMS for Fall. EMS reports patient fell from curb to concrete, +LOC, +thinners, VSS. Pt presents alert, 1cm lac to posterior head, c/o lumbar tenderness, and headache. HPI 83 year old female with pmh of arthritis, hypertension, atrial fibrillation (on Eliquis) presents to ED BIBEMS after falling off a curb, hitting her head and having LOC for around a minute. Pt was unable to ambulate after incident. Pt has left sided chest/rib pain and back pain. No past medical history on file. No past surgical history on file. No family history on file. Social History Socioeconomic History Marital status: Spouse name: Not on file Number of children: Not on file Years of education: Not on file Highest education level: Not on file Occupational History Not on file Tobacco Use Smoking status: Not on file Smokeless tobacco: Not on file Substance and Sexual Activity Alcohol use: Not on file Drug use: Not on file Sexual activity: Not on file Other Topics Concern Not on file Social History Narrative Not on file Social Determinants of Health Financial Resource Strain: Not on file Food Insecurity: Not on file Transportation Needs: Not on file Stress: Not on file Housing Stability: Not on file Physical Exam BP (!) 191/125 Pulse 62 Temp 97.2 ??F (36.2 ??C) (Temporal) Resp 16 Ht 1.6 m (5' 3 ) Wt 113.4 kg (250 lb) SpO2 99% Constitutional: in NAD Eyes: Sclera normal, EOMI, PERRL HEENT: normocephalic, moist mucous membranes, no nasal discharge, 1 cm laceration to left posteriorscalp Neck/Back: supple, non-tender C-/T-/L-spine midline Pulmonary: CTAB, no wheezing/rhonci/rales Cardiovascular: hypertensive, irregularly regular rhythm, no murmurs rubs or gallops Abdomen: soft, non rigid, non-tender, no guarding, no rebound, reproducible tenderness to left lateral chest wall Extremities/MSK: no swelling, peripheral pulses intact, normal ROM, Neuro: alert and oriented x3, face symmetric, tongue midline Skin: No evidence of lesions, rash, or , ecchymosis over light buttock Psych: normal affect Labs Reviewed ALCOHOL ETHYL BLOOD BASIC METABOLIC PANEL (CALCIUM TOTAL) CBC W AUTO DIFFERENTIAL PT-INR SLH TEG 6S PLATELET MAPPING TEG 6 GLOBAL HEMOSTASIS W/ LYSIS URINE DRUG SCREEN IMMUNOASSAY URINALYSIS W/MICROSCOPIC NO CULTURE TROPONIN-I HIGH SENSITIVE BASELINE + 1HR TYPE + SCREEN PANEL CT HEAD WO CONTRAST - Head Trauma, CSF leak, mental status changes (Results Pending) CT FACIAL BONES WO CONTRAST - Facial trauma, fx suspected, blunt (Results Pending) CT CHEST ABDOMEN PELVIS W CONT - Abdomen-pelvis trauma, blunt or penetrating (Results Pending) CT THORACIC SPINE WO CONTRAST - T/L-spine trauma, spine fracture (Results Pending) CT LUMBAR SPINE WO CONTRAST - T/L-spine trauma, Spine fracture (Results Pending) XR CHEST 1VW PORTABLE (Results Pending) XR PELVIS 1 OR 2VW (Results Pending) CT CERVICAL SPINE WO CONTRAST (Results Pending) Medications 0.9% NaCl injection 3 mL (has no administration in time range) And 0.9% NaCl injection 1-10 mL (has no administration in time range) 0.9% NaCl IV bolus (has no administration in time range) Tdap (ckgvipa-kdvhbbmxii-pwzju pertussis) (Boostrix) (7y+) injection 0.5 mL (has no administration in time range) iopamidol (Isovue 370) 76 % contrast (150 mL Intravenous $ Given - Contrast 11/01/231912) fentaNYL (PF) (Sublimaze) injection 50 mcg (50 mcg Intravenous $ Given 11/01/231922) Procedures MDM 83 year old female with pmh of arthritis, hypertension, atrial fibrillation (on Eliquis) presents to ED BIBEMS after falling off a curb, hitting her head and having LOC for around a minute. CT head without acute intracranial process. Initial CT readings did not suggest rib fx's. However on re-evaluation, multiple left rib fx's are now noted. Pt is also complaining of midline T-spine tenderness onre-examination thus T-spine fx on CT is acute. Pt will likely require admission the trauma team dueto acute traumatic injuries. PATRICIA to Dr Hill pending trauma final recommendations. DDX Blunt poly trauma vs thoracic vs intra abdominal visceral injury vs fracture vs neurovascular injury vs other Plan -labs; see orders -imaging; see orders -symptom control; -reassess -trauma labs and scan as well as syncope workup EKG Date:11/01/23 Time:2023 Rhythm: NSR Rate: 69bpm [place]: Normal QTc: 443ms ST-changes: No RADHA nor depressions T-waves: No peaked/hyperacute, biphasic nor T-wave inversions Normal EKG ED Course ED Course as of 11/07/23 121 Sat November 01, 20232029 Spoke with radiology. Pelvis XR concerning for right femoral neck lucency. CT C/A/P does not confirm femoral neck fx. [CL] 2114 C-spine cleared [CL] 2122 NSGY at bedside for T-spine compression fx. Pt with midline T-spine tenderness. Pending NSGY final recommendations [CL] 2199 Signed out to on-coming team [CK] ED Course User Index [CK] Mckay Church MD [CL] Don Michelle, DO Clinical Impressions as of 11/07/23 1210 Trauma Closed fracture of multiple ribs of left side, initial encounter Other closed fracture of thoracic vertebra, unspecified thoracic vertebral level, initial encounter([facility]) ED Final Diagnosis and Discharge information 1. Trauma Disposition Likely admit. PATRICIA to Dr Hill, pending trauma final recommendations. By signing my name below, I, Christopher Wheatleyалександр, attest that this documentation has been prepared underthe direction and in the presence of Dr. Michelle. Signed: Torres Frost. Don Michelle D.O. Emergency Medicine Resident, PGY2 11/01/2023 7:22 PM * Milla Fraser RN - 11/01/2023 6:51 PM CDT Bed: T05 Expected date: Expected time: Means of arrival: Comments: Level 2 1829 documented in this encounter Miscellaneous Notes * Clinical References REG - Tonie King PA-C - 11/08/2023 9:28 AM CDT 19357 Discharge Instructions: Using a Thoracolumbar Sacral Orthosis Brace (TLSO) Your healthcare provider has prescribed a thoracolumbar sacral orthosis brace (TLSO) for you. A TLSO is a back brace. It's used to keep your back straight after surgery to help treat scoliosis or a spine fracture. Using the TLSO correctly will help you move on your own. General guidelines ?? Wear a T-shirt under the brace. This is to protect your skin and absorb sweat. ?? Wear your brace as directed by your healthcare provider. They will tell you how often and how long to wear the brace each day. ?? Ask your healthcare provider for a special brace to wear in the shower. ?? Ask if you need to wear the brace at night. ?? Put on the brace the way you were shown in the hospital. You will need help to do this safely. ?? Check for skin irritation and reddened areas or pressure points (sores) after wearing the brace.If these appear, you may need to have your brace adjusted, or you may need a different size. Putting on your brace ?? Move to one side of the bed by using your arms and legs to move your hips over. Or have a helperpull the sheet under you over to one side. Don?t twist or move your back. Keep it straight. ?? Roll to your side, away from the edge of the bed and almost onto your stomach. Try to keep your back straight. Roll like a log. ?? Put the back half of the brace on your back. Make sure the waist indentations on the inside of the brace are just above your hip bones and below your ribs. ?? Hold the brace in place and log-roll onto your back. ?? Put on the front half of the brace. Fully tighten both straps at the bottom of the brace on bothsides. Then fully tighten the straps at the top of the brace on both sides. ?? Before getting up, make sure that the brace is aligned. Adjust it if needed. ?? Drop your legs over the side of the bed. Push yourself up to a sitting position. Then slowly raise yourself to a standing position. Moving safely ?? Keep in mind that the brace will limit your ability to move in certain directions. You will not be able to sit in some types of chairs. ?? Use a cane, crutches, walker, handrails, or someone to help you until your balance, flexibility,and strength have improved. ?? Arrange your household to keep the items you need handy. Keep everything else out of the way. ?? Keep your hands free by using a belt bag, apron, or pockets to carry things. ?? Be careful when getting out of bed. Take your time. Sit on the edge of the bed. Take a few deep breaths. Don?t stand until any dizziness goes away. ?? Don?t bend or twist at the waist. ?? Don't raise your hands over your head. ?? Don?t lift anything heavier than 5 pounds for the first 2 weeks after your injury or surgery. ?? Don?t sit for longer than 30 minutes at a time. ?? Don?t sit on low, deep couches. A chair with arms, a firm seat, and an upright back is best. Follow-up care Follow up with your healthcare provider, or as advised. Keep appointments for X- rays. You will needrepeated X-rays to check the status of your injury or surgical repair. Call 911 Call 911 right away if you have any of these: ?? Sudden or worse shortness of breath ?? Sudden chest or back pain or chest pain with coughing ?? Calf pain, soreness, or swelling Last Reviewed Date: 2021 ?? 3712-8791 [employer]. All rights reserved. This information is not intended as a substitute for professional medical care. Always follow your healthcare professional's instructions. * Clinical References AVS - Tonie King PA-C - 11/08/2023 9:28 AM CDT 76386 Medicine for Pain Medicines can help to block pain, decrease inflammation, and treat related problems. More than 1 medicine may be used to treat your pain. Medicines may be changed as you feel better, or if they causeside effects. Medicines Examples What they do Possible side effects Nonopioid NSAIDs aspirin, a, ibuprofen, naproxen Reduce pain chemicals at the site of pain. NSAIDs can reduce joint and soft tissue inflammation. Nausea, stomach pain and irritation, ulcers, indigestion, bleeding, kidney, and liver problems. Certain NSAIDs may increase the risk for cardiovascular disease and stroke in some people. Smoking and alcohol can make the risk worse. Talk with your healthcare provider. Opioids morphine and similar medicines, often called narcotics Reduce feelings or perception of pain. Used for moderate to severe pain. Nausea, vomiting, itching, drowsiness or sleepiness, constipation, slowed breathing Other medicines corticosteroids, antinausea, antidepressants, antiseizure medicines Reduce swelling, burning or tingling pain, or certain side effects of pain medicines, such as nausea or vomiting Your healthcare provider will explain the possible side effects of these medicines. Anesthetics (local, injected) lidocaine, benzocaine, and medicines used by anesthesiologists Stop pain signals from reaching the brain by blocking feeling in the treated area Nausea, low blood pressure, fever, slowed breathing, dizziness, weakness, fainting, seizures, heart attack When to call your healthcare provider Call your healthcare provider right away (or have a family member call) if any of the following occur: ?? Unrelieved pain ?? Side effects, including constipation or uncontrolled nausea, that interfere with daily activities If you have extreme sleepiness or breathing problems, call 911. Other precautions ?? Ask your healthcare provider or pharmacist how to get rid of your pain medicines safely when youstop using them. ?? Never share your pain medicines with anyone. ?? Store your medicines in a safe place so they can?t be stolen. If you think your medicine has been stolen or lost, tell your healthcare provider right away. Last Reviewed Date: 2021 ?? [id number] [employer]. All rights reserved. This information is not intended as a substitute for professional medical care. Always follow your healthcare professional's instructions. * Clinical References AVS - Tonie King PA-C - 11/08/2023 9:28 AM CDT Images from the original note were not included. [id number] Rib Fracture You broke 1 or more ribs. This is called a rib fracture. Rib fractures don't need a cast like otherbones. They will heal by themselves in about 4 to 6 weeks. The first 3 to 4 weeks will be the most painful. During this time deep breathing, coughing, or changing position from sitting to lying down,may cause the broken ends to move slightly. Home care ?? Rest. Don't do any heavy lifting or strenuous exertion until the pain goes away. ?? It hurts to breathe when you have a broken rib. This puts you at risk of getting pneumonia from poor airflow through your lungs. To prevent this: o Take a few very deep breaths once an hour while you're awake. Breathe out through pursed lips as if you are blowing up a balloon. If possible, actually blow up a balloon or a rubber glove. This exercise builds up pressure inside the lung and prevents collapse of the small air sacs of the lung. This exercise may cause some pain at the site of injury. This is normal. o You may have gotten a breathing exercise device called an incentive spirometer. Use it at least 4times a day, or as directed. ?? Apply an ice pack over the injured area for 15 to 20 minutes every 1 to 2 hours. Do this for thefirst 24 to 48 hours. To make an ice pack, put ice cubes in a plastic bag that seals at the top. Wrap the bag in a clean, thin towel or cloth. Never put ice or an ice pack directly on your skin. Keepusing ice packs as needed to ease pain and swelling. ?? You may use nsjr-ieq-usyvcln pain medicine to control pain, unless another pain medicine was prescribed. If you have chronic liver or kidney disease or ever had a stomach ulcer, gastrointestinal bleeding, or take a blood thinner, talk with your healthcare provider before using these medicines. ?? If your pain is not controlled, contact your provider. Sometimes a stronger pain medicine may beneeded. A nerve block can be done in case of severe pain. It will numb the nerve between the ribs. Follow-up care Follow up with your healthcare provider, or as advised. In rare cases, a broken rib will cause complications in the first few days that may not be clearly seen during your initial exam. This can include collapsed lung, bleeding around the lung or into the belly (abdomen), or pneumonia. So watch forthe signs below. If X-rays were taken, you will be told of any new findings that may affect your care. Call 911 Call 911 if you have: ?? Dizziness, weakness or fainting ?? Shortness of breath with or without chest discomfort ?? New or worsening abdominal pain ?? Discomfort in other areas of your upper body such as your shoulders, jaw, neck, or arms When to get medical advice Call your healthcare provider right away if any of these occur: ?? Increasing chest pain with breathing ?? Fever of 100.4??F (38??C) or above, or as directed by your provider ?? Chills ?? Congested cough, nausea, or vomiting Last Reviewed Date: 2021 ?? [id number] [employer]. All rights reserved. This information is not intended as a substitute for professional medical care. Always follow your healthcare professional's instructions. * Clinical References AVS - Tonie King PA-C - 11/08/2023 9:28 AM CDT Images from the original note were not included. [id number] Neck or Spine Fractures (Broken Neck or Spine) The spine stretches from the base of the skull to the tailbone. It's made up of 33 bones (vertebrae) that help support the body. These bones also protect the spinal cord, the important branch of yournervous system that carries messages from the brain to the body. A broken (fractured) bone in the neck or spine can be very serious. In some cases, it can lead to paralysis or . Emergency care is vital. Keep neck and spine injuries still Don't move a person with a neck or spine injury. The person should lie still and wait for an emergency medical team. It can help for someone to gently hold the person's head to keep it from moving until help arrives. When to go to the emergency room (ER) If you come upon a person with a neck or spine injury, call 911 for emergency help right away. Waitfor emergency services personnel to arrive and take over. A person with a neck or spinal injury mayhave symptoms that include: ?? Not being awake or aware (unconscious) ?? Severe back or neck pain ?? Bruising and swelling over the neck or back ?? Tingling or loss of feeling in the hands or feet ?? Loss of bowel or bladder function ?? Loss of feeling and movement below the level of injury ?? Weakness or inability to move arms or legs What to expect in the ER Here's what will happen in the ER: ?? The injured person may be placed on a spine board that prevents movement for examination. ?? X-rays of the neck or spine may be taken. ?? An MRI or CT scan may be done. These provide more detailed images of the structures in the neck and back. ?? Medicine may be given to lessen pain. Treatment The goal of treatment is to return the neck or spine to its normal position. ?? A minor neck fracture or simple spine fracture may be treated with a neck brace for 6 to 8 weeksuntil the bone heals. In this case, it's very important to do what your provider advises for home care and keep all follow-up appointments. ?? Severe or complex fractures often need surgery to ease the pressure on the spinal cord or spinalnerves and to realign the spine with metal rods, screws, and bone grafts. In that case, a spine surgeon (orthopedic surgeon or neurosurgeon) is needed. Last Reviewed Date: 2021 ?? [id number] [employer]. All rights reserved. This information is not intended as a substitute for professional medical care. Always follow your healthcare professional's instructions. documented in this encounter Plan of Treatment Not on file documented as of this encounter Procedures Procedure Name Priority Date/Time Associated Diagnosis Comments PREPARE RBC LEUKOREDUCED UNIT STAT 11/05/2023 1:17 AM CDT XR CHEST 1VW PORTABLE STAT 11/04/2023 12:54 PM CDT Closed fracture of multiple ribs of left side, initial encounter CBC W/O DIFFERENTIAL AM Draw 11/04/2023 1:56 AM CDT BASIC METABOLIC PANEL (CALCIUM TOTAL) AM Draw 11/04/2023 1:56 AM CDT PHOSPHORUS BLOOD AM Draw 11/04/2023 1:56 AM CDT MAGNESIUM BLOOD AM Draw 11/04/2023 1:56 AM CDT CBC W/O DIFFERENTIAL AM Draw 11/03/2023 2:40 AM CDT BASIC METABOLIC PANEL (CALCIUM TOTAL) AM Draw 11/03/2023 2:40 AM CDT PHOSPHORUS BLOOD AM Draw 11/03/2023 2:40 AM CDT MAGNESIUM BLOOD AM Draw 11/03/2023 2:40 AM CDT XR THORACIC SPINE 3VW STAT 11/02/2023 4:31 PM CDT Closed fracture of multiple ribs of left side, initial encounter BLOOD TYPE VERIFICATION STAT 11/02/19 10:36 AM CDT CBC W/O DIFFERENTIAL STAT 11/02/2023 7:11 AM CDT BASIC METABOLIC PANEL (CALCIUM TOTAL) STAT 11/02/2023 7:11 AM CDT PHOSPHORUS BLOOD STAT 11/02/2023 7:11 AM CDT MAGNESIUM BLOOD STAT 11/02/2023 7:11 AM CDT TROPONIN-I HIGH SENSITIVE REFLEX 1HOUR Timed 11/02/2023 1:27 AM CDT URINALYSIS W/MICROSCOPIC NO CULTURE STAT 11/02/2023 1:27 AM CDT URINE DRUG SCREEN IMMUNOASSAY STAT 11/02/2023 1:27 AM CDT EKG 12-LEAD Routine 11/01/2023 8:04 PM CDT Trauma TROPONIN-I HIGH SENSITIVE BASELINE + 1HR STAT 11/01/2023 7:57 PM CDT TEG 6 GLOBAL HEMOSTASIS W/ LYSIS STAT 11/01/2023 7:56 PM CDT TEG 6S PLATELET MAPPING STAT 11/01/19 7:56 PM CDT PT-INR SL[facility] STAT 11/01/2023 7:56 PM CDT TYPE + SCREEN PANEL STAT 11/01/2023 7 :56 PM CDT WILMA DIRECT Routine 11/01/2023 7:56 PM CDT ANTIBODY IDENTIFICATION Routine 11/01/19 7:56 PM CDT CBC W AUTO DIFFERENTIAL STAT 11/01/19 7:56 PM CDT BASIC METABOLIC PANEL (CALCIUM TOTAL) STAT 11/01/2023 7:56 PM CDT ALCOHOL ETHYL BLOOD STAT 11/01/2023 7 [address] CHEST ABDOMEN PELVIS W CONT STAT 11/01/2023 7:[address] LUMBAR SPINE WO CONTRAST STAT 11/01/2023 7:[address] THORACIC SPINE WO CONTRAST STAT 11/01/2023 7:[address] CERVICAL SPINE WO CONTRAST STAT 11/01/2023 7:[address] FACIAL BONES WO CONTRAST STAT 11/01/2023 7:[address] HEAD WO CONTRAST STAT 11/01/2023 7 :46 PM CDT Trauma XR PELVIS 1 OR 2VW STAT 11/01/2023 7: 24 PM CDT Trauma XR CHEST 1VW PORTABLE STAT 11/01/2023 7:10 PM CDT Trauma OXYGEN WITHOUT TITRATION (ADULT) Routine 11/01/2023 6:58 PM CDT documented in this encounter Results * XR [...] AM CDT) Unit Description AS1 LR PRBC [facility] BLOOD BANK LAB Unit ABO O [facility] BLOOD [facility] LAB Unit Rh POS [facility] BLOOD [facility] Product Number R02 [facility] B LOOD BANK LAB Unit Donor # [id number] [facility] BLOOD B[facility] LAB Unit Status released [facility] BLOO D BANK LAB Product Code [id number] [facility] BLO OD BANK LAB Blood Type Barcode 5100 [facility] BLOOD [facility] LAB Expiration Date S BLOOD BANK LAB Unit Description AS1 LR PRBC [facility] BLOOD BANK LAB Unit ABO O [facility] BLOOD BANK LAB Unit Rh POS [facility] BLOOD [facility] LAB Product Number R02 [facility] B LOOD BANK LAB Unit Donor # [id number] [facility] BLOOD BANK LAB Unit Status released [facility] BLOO D BANK LAB Product Code [id number] [facility] BLO OD BANK LAB Blood Type Barcode 5100 [facility] BLOOD BANK LAB Expiration Date S BLOOD BANK LAB Blood Bank BLOOD SPECIMEN / Unknown 11/01/2023 8:07 PM CDT Gabriel Hill MD LAB - BLOOD BANK ORD ERABLES [facility] BLOOD BANK LAB [address] [place] [address], [facility] [phone] * XR CHEST 1VW PORTABLE (11/04/2023 12:54 PM CDT) Anatomical Region Laterality Modality Chest Radiographic Anahy ging 11/04/2023 1:34 PM CDT Narrative 11/05/2023 11:04 AM CDT PROCEDURE: ??XR CHEST 1VW PORTABLE, DATE/TIME OF EXAM: ??11/04/2023 12:55 PM, LOCATION ??[facility] INDICATION: S22.42XA: Closed fracture of multiple ribs [...] implants. Report dictated by Darrion Linares MD (residential mental health worker). Rl Jacques MD have personally reviewed and interpreted this examination/study. > Interpreting Provider: Rl Marrero MD on 11/05/2023 11:04 AM Procedure Note Rl Marrero MD - 11/05/2023 PROCEDURE: XR CHEST 1VW PORTABLE, DATE/TIME OF EXAM: 11/04/2023 12:55PM, LOCATION [facility] INDICATION: S22.42XA: Closed fracture of multiple ribs [...] implants. Report dictated by Darrion Linares MD (residential mental health worker). Rl Jacques MD have personally reviewed and interpreted this examination/study. > Interpreting Provider: Rl Marrero MD on 11/05/2023 11:04 AM Kathryn Quach MD DIAGNOSTIC IMAGING O RDERABLES * (ABNORMAL) CBC W/O DIFFERENTIAL (11/04/2023 1:56 AM CDT) WBC 6.2 4.0 - 10.7 x10E9/L 11/04/2023 2:14 AM CDT [facility] RBC Count 3.15(L) 3.90 - 5.20 x10E12/L 11/04/2023 2:14 AM [facility] Hemoglobin 11.7(L) 11.9 - 15.8 g/dL 11/04/2023 2:14 AM [facility] Hematocrit 32.7(L) 34.8 - 46.1 % 11/04/2023 2:14 AM [facility] MCV 103.8(H) 80.0 - 98.0 fL 11/04/2023 2:14 AM [facility] MCH 37.1(H) 26.7 - 33.6 pg 11/04/2023 2:14 AM [facility] MCHC 35.8 31.7 - 36.3 g/dL 11/04/2023 2:14 AM [facility] RDW-CV 15.5(H) 11.3 - 14.8 % 11/04/2023 2:14 AM [facility] Platelet Count 205 150 - 420 x10E9/L 11/04/2023 2:14 AM [facility] MPV 8.6 7.8 - 11.4 fL 11/04/2023 2:14 AM [facility] Blood BLOOD SPECIMEN / Unknown Lab Venipuncture / Unknown 11/04/2023 1:56 AM CDT 11/04/2023 2:09 AM CDT Gabriel Hill MD LAB - HEMATOLOGY ORD ERABLES Performing Organization Address [facility] Co de Phone Number [facility] [address] [place] [phone] [phone] * (ABNORMAL) BASIC METABOLIC PANEL (CALCIUM TOTAL) (11/04/2023 1:56 AM CDT) BUN 11 7 - 26 mg/dL 11/04/2023 2:37 AM [facility] Creatinine 0.60 0.56 - 0.96 mg/dL 11/04/2023 2:37 AM [facility] Sodium 140 136 - 145 mmol/L 11/04/2023 2:37 AM [facility] Potassium 3.7 3.5 - 4.5 mmol/L 11/04/2023 2:37 AM [facility] Chloride 108(H) 98 - 107 mmol/L 11/04/2023 2:37 AM [facility] CO2 24 22 - 29 mmol/L 11/04/2023 2:37 AM [facility] Glucose 103 70 - 115 mg/dL 11/04/2023 2:37 AM [facility] Calcium 8.8 8.4 - 10.2 mg/dL 11/04/2023 2:37 AM [facility] Anion Gap 8 6 - 16 11/04/2023 2:37 AM [facility] BUN/Creatinine Ratio 18 7 - 23 11/04/2023 2:37 AM [facility] Osmolality Calculated 290 275 - 295 mOsm/kg 11/04/2023 2:37 AM [facility] eGFR by CKD-EPI 89(L) >=90 mL/min/1.7 3 m2 11/04/2023 2:37 AM [facility] Blood BLOOD SPECIMEN / Unknown Lab Venipuncture / Unknown 11/04/2023 1:56 AM CDT 11/04/2023 2:09 AM CDT Gabriel Hill MD LAB - CHEMISTRY ORDNicholas HARTMANN Performing Organization Address City/[facility]/ZIP Co de Phone Number [address] [address], [facility] [phone] * MAGNESIUM BLOOD (11/04/2023 1:56 AM CDT) Magnesium 1.8 1.6 - 2.6 mg/dL 11/04/2023 2:37 AM T [facility] Blood BLOOD SPECIMEN / Unknown Lab Venipuncture / Unknown 11/04/2023 1:56 AM CDT 11/04/2023 2:09 AM CDT Gabriel Hill MD LAB - CHEMISTRY MARIA INES HARTMANN [address] [address], [facility] [phone] * PHOSPHORUS BLOOD (11/04/2023 1:56 AM CDT) Phosphorus 3.2 2.9 - 5.1 mg/dL 11/04/2023 2:37 AM [facility] Blood BLOOD SPECIMEN / Unknown Lab Venipuncture / Unknown 11/04/2023 1:56 AM CDT 11/04/2023 2:09 AM CDT Gabriel Hill MD LAB - CHEMISTRY MARIA INES HARTMANN [facility] Organization Address City/State/ZIP Co de Phone Number [facility] [address] [place] [address], [facility] [phone] * (ABNORMAL) CBC W/O DIFFERENTIAL (11/03/2023 2:40 AM CDT) WBC 5.7 4.0 - 10.7 x10E9/L 11/03/2023 3:14 AM [facility] RBC Count 3.06(L) 3.90 - 5.20 x10E12/L 11/03/2023 3:14 AM [facility] Hemoglobin 11.7(L) 11.9 - 15.8 g/dL 11/03/2023 3:14 AM [facility] Hematocrit 31.7(L) 34.8 - 46.1 % 11/03/2023 3:14 AM [facility] MCV 103.6(H) 80.0 - 98.0 fL 11/03/2023 3:14 AM [facility] MCH 38.2(H) 26.7 - 33.6 pg 11/03/2023 3:14 AM [facility] MCHC 36.9(H) 31.7 - 36.3 g/dL 11/03/2023 3:14 AM [facility] RDW-CV 16.0(H) 11.3 - 14.8 % 11/03/2023 3:14 AM [facility] Platelet Count 235 150 - 420 x10E9/L 11/03/2023 3:14 AM [facility] MPV 8.8 7.8 - 11.4 fL 11/03/2023 3:14 AM [facility] Blood BLOOD SPECIMEN / Unknown Venipuncture / Unknown 11/03/2023 2:40 AM CDT 11/03/2023 3:08 AM CDT Gabriel Hill MD LAB - HEMATOLOGY ORD ERABLES Performing Organization Address City/[facility]/ZIP Co de Phone Number [facility] [address] [place] [address], [facility] [phone] * (ABNORMAL) BASIC METABOLIC PANEL (CALCIUM TOTAL) (11/03/2023 2:40 AM CDT) BUN 12 7 - 26 mg/dL 11/03/2023 3:33 AM [facility] Creatinine 0.60 0.56 - 0.96 mg/dL 11/03/2023 3:33 AM [facility] Sodium 142 136 - 145 mmol/L 11/03/2023 3:33 AM [facility] Potassium 3.7 3.5 - 4.5 mmol/L 11/03/2023 3:33 AM [facility] Chloride 108(H) 98 - 107 mmol/L 11/03/2023 3:33 AM [facility] CO2 27 22 - 29 mmol/L 11/03/2023 3:33 AM [facility] Glucose 104 70 - 115 mg/dL 11/03/2023 3:33 AM [facility] Calcium 8.7 8.4 - 10.2 mg/dL 11/03/2023 3:33 AM [facility] Anion Gap 7 6 - 16 11/03/2023 3:33 AM [facility] BUN/Creatinine Ratio 20 7 - 23 11/03/2023 3:33 AM [facility] Osmolality Calculated 294 275 - 295 mOsm/kg 11/03/2023 3:33 AM [facility] eGFR by CKD-EPI 89(L) >=90 mL/min/1.7 3 m2 11/03/2023 3:33 AM [facility] Blood BLOOD SPECIMEN / Unknown Venipuncture / Unknown 11/03/2023 2:40 AM CDT 11/03/2023 3:08 AM CDT Gabriel Hill MD LAB - CHEMISTRY MARIA INES HARTMANN Performing Organization Address City/[facility]/ZIP Co de Phone Number [address] [address], [facility] [phone] * MAGNESIUM BLOOD (11/03/2023 2:40 AM CDT) Magnesium 1.9 1.6 - 2.6 mg/dL 11/03/2023 3:33 AM CDT [facility] Blood BLOOD SPECIMEN / Unknown Venipuncture / Unknown 11/03/2023 2:40 AM CDT 11/03/2023 3:08 AM CDT Gabriel Hill MD LAB - CHEMISTRY MARIA INES HARTMANN Performing Organization Address [facility]/ZIP Co de Phone Number [address] [address], [place] [phone] * PHOSPHORUS BLOOD (11/03/2023 2:40 AM CDT) Phosphorus 3.0 2.9 - 5.1 mg/dL 11/03/2023 3:33 AM CDT [facility] Blood BLOOD SPECIMEN / Unknown Venipuncture / Unknown 11/03/2023 2:40 AM CDT 11/03/2023 3:08 AM CDT Gabriel Hill MD LAB - CHEMISTRY MARIA INES HARTMANN Performing Organization Address City/[facility]/ZIP Co de Phone Number [address] [address], [place] [phone] * XR THORACIC SPINE 3VW (11/02/2023 4:31 PM CDT) Anatomical Region Laterality Modality Spine Radiographic Anahy ging 11/02/2023 5:14 PM CDT Narrative 11/03/2023 9:08 AM CDT PROCEDURE: ??XR THORACIC SPINE 3VW, DATE/TIME OF EXAM: ??11/02/2023 4:31 PM, LOCATION ??[facility] INDICATION: S22.42XA: Closed fracture of multiple ribs of left side, initial encounter ADDITIONAL CLINICAL INFORMATION: Ordering Provider Reason For Exam: ??thoracic fx COMPARISON: CT thoracic spine dated 11/01/2023 FINDINGS/IMPRESSION: 1.Mild kyphosis of the thoracic spine. Grade 1 retrolisthesis of T8 on T9. The age indeterminant compression fracture deformities of the T5 and T6 vertebral bodies are not well-seen on this exam and better appreciated on the prior CT thoracic spine from 11/01/2023. 2.Postoperative changes of a L1 vertebroplasty are noted. 3.The intervertebral disc spaces are maintained. 4.Atherosclerotic calcification of the aorta. 5.Calcified mediastinal and perihilar lymph nodes are noted. Report dictated by Lemuel Whitley DO (residential mental health worker). Quinton Jacques MD have personally reviewed and interpreted this examination/study. > Interpreting Provider: Quinton Peña MD on 11/03/2023 9:08 AM Procedure Note Quinton Peña MD - 11/03/2023 PROCEDURE: XR THORACIC SPINE 3VW, DATE/TIME OF EXAM: 11/02/2023 4:31PM, LOCATION [facility] INDICATION: S22.42XA: Closed fracture of multiple ribs of left side, initialencounter ADDITIONAL CLINICAL INFORMATION: Ordering Provider Reason For Exam: thoracic fx COMPARISON: CT thoracic spine dated 11/01/2023 FINDINGS/IMPRESSION: 1.Mild kyphosis of the thoracic spine. Grade 1 retrolisthesis of T8 onT9. The age indeterminant compression fracture deformities of the T5 and T6 vertebral bodies are not well-seen on this exam and better appreciatedon the prior CT thoracic spine from 11/01/2023. 2.Postoperative changes of a L1 vertebroplasty are noted. 3.The intervertebral disc spaces are maintained. 4.Atherosclerotic calcification of the aorta. 5.Calcified mediastinal and perihilar lymph nodes are noted. Report dictated by Lemuel Whitley DO (residential mental health worker). Quinton Jacques MD have personally reviewed andinterpreted this examination/study. > Interpreting Provider: Quinton Peña MD on 11/03/2023 9:08AM Zhou Gutiérrez MD DIAGNOSTIC IMAGI NG ORDERABLES * BLOOD TYPE VERIFICATION (11/02/2023 10:36 AM CDT) ABO Rh O POS 11/02/2023 11:20 AM CDT [facility] BLOOD BANK LAB Blood Bank BLOOD SPECIMEN / Unknown Venipuncture / Unknown 11/02/2023 10:36 AM CDT 11/02/2023 10:45 AM CDT Kathryn Quach MD LAB - BLOOD BANK ORD ERABLES [facility] BLOOD BANK LAB [address] [place] [address], [facility] [phone] * (ABNORMAL) CBC W/O DIFFERENTIAL (11/02/2023 7:11 AM CDT) WBC 7.6 4.0 - 10.7 x10E9/L 11/02/2023 7:30 AM [facility] RBC Count 3.31(L) 3.90 - 5.20 x10E12/L 11/02/2023 7:30 AM [facility] Hemoglobin 12.3 11.9 - 15.8 g/dL 11/02/2023 7:30 AM [facility] Hematocrit 34.4(L) 34.8 - 46.1 % 11/02/2023 7:30 AM [facility] MCV 103.9(H) 80.0 - 98.0 fL 11/02/2023 7:30 AM [facility] MCH 37.2(H) 26.7 - 33.6 pg 11/02/2023 7:30 AM [facility] MCHC 35.8 31.7 - 36.3 g/dL 11/02/2023 7:30 AM [facility] RDW-CV 16.2(H) 11.3 - 14.8 % 11/02/2023 7:30 AM [facility] Platelet Count 247 150 - 420 x10E9/L 11/02/2023 7:30 AM [facility] MPV 8.9 7.8 - 11.4 fL 11/02/2023 7:30 AM [facility] Blood BLOOD SPECIMEN / Unknown Venipuncture / Unknown 11/02/2023 7:11 AM CDT 11/02/2023 7:26 AM T Gabriel Hill MD LAB - HEMATOLOGY ORD ERABLES [facility] [address] [place] [address], [facility] [phone] * (ABNORMAL) BASIC METABOLIC PANEL (CALCIUM TOTAL) (11/02/2023 7:11 AM [facility]) BUN 14 7 - 26 mg/dL 11/02/2023 7:51 AM [facility] Creatinine 0.54(L) 0.56 - 0.96 mg/dL 11/02/2023 7:51 AM [facility] Sodium 141 136 - 145 mmol/L 11/02/2023 7:51 AM [facility] Potassium 4.5 3.5 - 4.5 mmol/L 11/02/2023 7:51 AM [facility] Chloride 108(H) 98 - 107 mmol/L 11/02/2023 7:51 AM [facility] CO2 24 22 - 29 mmol/L 11/02/2023 7:51 AM [facility] Glucose 98 70 - 115 mg/dL 11/02/2023 7:51 AM [facility] Calcium 9.0 8.4 - 10.2 mg/dL 11/02/2023 7:51 AM [facility] Anion Gap 9 6 - 16 11/02/2023 7:51 AM [facility] BUN/Creatinine Ratio 26(H) 7 - 23 11/02/2023 7:51 AM [facility] Osmolality Calculated 292 275 - 295 mOsm/kg 11/02/2023 7:51 AM [facility] eGFR by CKD-EPI >90 >=90 mL/min/1.7 3 m2 11/02/2023 7:51 AM CDT [facility] Blood BLOOD SPECIMEN / Unknown Venipuncture / Unknown 11/02/2023 7:11 AM CDT 11/02/2023 7:21 AM CDT Gabriel Hill MD LAB - CHEMISTRY MARIA INES HARTMANN [address] [address], [place] [phone] * MAGNESIUM BLOOD (11/02/2023 7:11 AM CDT) Magnesium 1.9 1.6 - 2.6 mg/dL 11/02/2023 7:51 AM CDT [facility] Blood BLOOD SPECIMEN / Unknown Venipuncture / Unknown 11/02/2023 7:11 AM CDT 11/02/2023 7:21 AM CDT Gabriel Hill MD LAB - CHEMISTRY MARIA INES HARTMANN Performing Organization Address City/[facility]/ZIP Co de Phone Number [address] [address], [place] [phone] * PHOSPHORUS BLOOD (11/02/2023 7:11 AM CDT) Phosphorus 3.0 2.9 - 5.1 mg/dL 11/02/2023 7:51 AM CDT [facility] Blood BLOOD SPECIMEN / Unknown Venipuncture / Unknown 11/02/2023 7:11 AM CDT 11/02/2023 7:21 AM CDT Gabriel Hill MD LAB - CHEMISTRY MARIA INES HARTMANN [address] [address], [place] [phone] * TROPONIN-I HIGH SENSITIVE REFLEX 1HOUR (11/02/2023 1:27 AM CDT) Troponin I High Sensitive 6 <=14 ng/L 11/02/2023 2:06 AM [facility] Delta Troponin I HS 11/02/2023 2:06 AM [facility] Comment:Delta value intentio mayito not calculated. Baseline to 1 hour specimen collection interval exceeded. Blood BLOOD SPECIMEN / Unknown Venipuncture / Unknown 11/02/2023 1:27 AM CDT 11/02/2023 1:34 AM CDT Mckay Church MD LAB - CHEMISTRY MARIA INES HARTMANN [address] [address], [facility] [phone] * (ABNORMAL) URINALYSIS W/MICROSCOPIC NO CULTURE (11/02/2023 1:27 AM CDT) Color UA Yellow Straw, Yellow 11/02/2023 1:41 AM [facility] Clarity UA Clear Clear 11/02/2023 1:41 AM [facility] Specific [place] UA 1.044(H) 1.005 - 1.030 11/02/2023 1:41 AM [facility] pH UA 5.0 5.0 - 8.0 pH 11/02/2023 1:41 AM [facility] Protein UA Negative Negative 11/02/2023 1:41 AM [facility] Glucose UA Negative Negative 11/02/2023 1:41 AM [facility] Ketone UA Negative Negative 11/02/2023 1:41 AM [facility] Bilirubin UA Negative Negative 11/02/2023 1:41 AM [facility] Blood UA 3+(A) Negative 11/02/2023 1:41 AM [facility] Nitrite UA Negative Negative 11/02/2023 1:41 AM [facility] Leukocyte Esterase Negative Negative 11/02/2023 1:41 AM [facility] Urobilinogen UA Negative Negative mg/dL 11/02/2023 1:41 AM [facility] RBC UA 0-2 None Seen, 0-2, 3-5 /HPF 11/02/2023 1:41 AM [facility] WBC UA 0-5 None Seen, 0-5 /HPF 11/02/2023 1:41 AM [facility] Bacteria UA 1+(A) None /HPF 11/02/2023 1:41 AM [facility] Squamous Epithelial Cells UA None Seen None Seen, 0-2, 3-5 /HPF 11/02/2023 1:41 AM [facility] Mucus UA 1+ /LPF 11/02/2023 1:41 AM [facility] Urine URINE SPECIMEN OBTAINED BY CLEAN CATCH PROCEDURE / Unknown Collection / Unknown 11/02/2023 1:27 AM CDT 11/02/2023 1:32 AM [facility] - 11/02/2023 1:41 AM CDT Kathryn Quach MD LAB - URINALYSIS ORD ERABLES Performing Organization Address City/[facility] Co de Phone Number [address] [address], [facility] [phone] * (ABNORMAL) URINE DRUG SCREEN IMMUNOASSAY (11/02/2023 1:27 AM CDT) [facility] Amphetamines Screen Urine Negative Negative : < 1000 ng/mL 11/02/2023 1:54 AM [facility] Barbiturates Screen Urine Negative Negative : < 200 ng/mL 11/02/2023 1:54 AM [facility] Benzodiazepine Screen Urine Negative Negative : < 200 ng/mL 11/02/2023 1:54 AM [facility] Opiates Urine Positive(A) Negative : < 300 ng/mL 11/02/2023 1:54 AM [facility] Comment:Positive urine opiat e screening results should be confirmed by another generally accepted non-immunological method such as gas chromatography or mass spectrometry. Cocaine Metabolites Urine Negative Negative : < 300 ng/mL 11/02/2023 1:54 AM [facility] Phencyclidine Screen Urine Negative Negative : < 25 ng/ml 11/02/2023 1:54 AM [facility] Cannabinoids Screen Urine Negative Negative : <50 ng/mL 11/02/2023 1:54 AM CDT [facility] Methadone Screen Urine Negative Negative : < 300 ng/mL 11/02/2023 1:54 AM CDT [facility] Fentanyl Screen Urine Negative Negative : <1.5 ng/mL 11/02/2023 1:54 AM CDT [facility] Urine URINE / Unknown Collection / Unknown 11/02/2023 1:27 AM CDT 11/02/2023 1:32 AM CDT Narrative [facility] - 11/02/2023 1:54 AM CDT The Urine Toxicology Screening Panel does not screen for Propoxyphene, Meprobamate, Carisoprodol, Trazodone, [id number] medications and/or volatiles (Acetone, Isopropanol, Methanol or Ethylene Glycol). Ethanol, Salicylate, Acetaminophen, Tricyclic Antidepressants and several therapeutic drugs may be individually assayed in serum or plasma specimen. Toxicology testing by the [facility] is an aid to medical diagnosis and treatment of patients. No documented chain of custody was maintained. Results are intended to be used for clinical purposes only. ? Kathryn Quach MD LAB - URINE CHEMISTR Y ORDERABLES Performing Organization Address [facility]/State/[facility] Co de Phone Number [facility] [address] [place] [address], [facility] [phone] * EKG 12-LEAD (11/01/2023 8:04 PM CDT) Ventricular Rate 69 BPM [facility] MUSE QRS Duration ms 84 ms [facility] MUSE Q-T Interval ms 414 ms [facility] MUSE QTC Calculation (Bezet) 443 ms [facility] MUSE Calculated R [place] 47 degrees [facility] MUSE Calculated T [place] 18 degrees [facility] MUSE Interpretation EKG NORMAL SINUS RHYTHM Normal EKG NO PREVIOUS ECGS AVAILABLE Confirmed by DORIS ??, VERNELL ([id number]) on 11/06/2023 9:10:03 AM [facility] MUSE 11/01/2023 8:04 PM CDT 11/06/2023 9:10 AM CDT Mckay Church MD ECG ORDERABLES Performing Organization Address [facility] [facility] Co de Phone Number [facility] [place] TROPONIN-I HIGH SENSITIVE BASELINE + 1HR (11/01/2023 7:57 PM CDT) [facility] Troponin I High Sensitive 4 <=14 ng/L 11/01/2023 8:43 PM CDT [facility] Blood BLOOD SPECIMEN / Unknown Venipuncture / Unknown 11/01/2023 7:57 PM CDT 11/01/2023 8:00 PM CDT Mckay Church MD LAB - CHEMISTRY ORDE MARY KATE Performing Organization Address [facility] Co de Phone Number [facility] [address] [place] [phone], [facility] [phone] * ANTIBODY IDENTIFICATION (11/01/2023 7:56 PM CDT) [facility] Antibody 1 POS, Auto Anti-M 11/01/2023 11:49 PM CDT [facility] LAB Blood Bank BLOOD SPECIMEN / Unknown Venipuncture / Unknown 11/01/2023 7:56 PM CDT 11/01/2023 8:07 PM CDT Kathryn Quach MD LAB - BLOOD BANK ORD ERABLES Performing Organization Address [facility]/ZIP Co de Phone Number [facility] [address] [place] [phone], [facility] [phone] * WILMA DIRECT (11/01/2023 7:56 PM CDT) Direct Wilma (KAVIN) NEG 11/01/2023 9:20 PM CDT [facility] Blood Bank BLOOD SPECIMEN / Unknown Venipuncture / Unknown 11/01/2023 7:56 PM CDT 11/01/2023 8:07 PM CDT Kathryn Quach MD LAB - BLOOD BANK ORD ERABLES [facility] [address] [place] [address], [facility] [phone] * TYPE + SCREEN PANEL (11/01/2023 7:56 PM CDT) Pathologist [facility] Antibody Screen POS 8:50 PM CDT [facility] ABO Rh O POS 11/01/2023 8:50 PM CDT [facility] Blood Bank BLOOD SPECIMEN / Unknown Venipuncture / Unknown 11/01/2023 7:56 PM CDT 11/01/2023 8:07 PM CDT Kathryn Quach MD LAB - BLOOD BANK ORD ERABLES [facility] [address] [place] [address], [facility] [phone] * (ABNORMAL) TEG 6 GLOBAL HEMOSTASIS W/ LYSIS (11/01/2023 7:56 PM CDT) Citrated Kaolin R (Reaction Time) 3.4(L) 4.6 - 9.1 min 11/01/2023 9:12 PM CDT [facility] Comment:CK R result below no rmal range. Consistent with hypercoagulable clotting factors. Citrated Kaolin LY30 (Lysis) 0.0 0.0 - 2.6 % 11/01/2023 9:12 PM CDT [facility] Citrated Functional Fibrinogen MA (Max Amplitude) 18.6 15.0 - 32.0 mm 11/01/2023 9:12 PM [facility] Citrated RapidTEG MA (Max Amplitude) 58.8 52.0 - 70.0 mm 11/01/2023 9:12 PM [facility] Blood BLOOD SPECIMEN / Unknown Venipuncture / Unknown 11/01/2023 7:56 PM CDT 11/01/2023 8:15 PM CDT Kathryn Quach MD LAB - HEMATOLOGY ORD ERABLES [facility] [address] [place] [address], [facility] [phone] * (ABNORMAL) TEG 6S PLATELET MAPPING (11/01/2023 7:56 PM CDT) TEGPLM (Max Amplitude) Koalin 61.0 53.0 - 68.0 mm 11/01/2023 8:53 PM [facility] TEGPLM (Max Amplitude) ACTF 11.4 2.0 - 19.0 mm 11/01/2023 8:53 PM [facility] TEGPLM (Max Amplitude) ADP 24.0(L) 45.0 - 69.0 mm 11/01/2023 8:53 PM [facility] Comment:ADP MA below normal range. Inhibition present. TEGPLM (Max Amplitude) AA 13.2(L) 51.0 - 71.0 mm 11/01/2023 8:53 PM [facility] Comment:AA MA below normal r wanda. Inhibition present. TEGPLM %Inhibition ADP 74.6(H) 0.0 - 17.0 % 11/01/2023 8:53 PM [facility] TEGPLM %Inhibition AA 96.4(H) 0.0 - 11.0 % 11/01/2023 8:53 PM [facility] TEGPLM %Aggregation ADP 25.4(L) 83.0 - 100.0 % 11/01/2023 8:53 PM [facility] TEGPLM % Aggregation AA 3.6(L) 89.0 - 100.0 % 11/01/2023 8:53 PM CDT [facility] Blood BLOOD SPECIMEN / Unknown Venipuncture / Unknown 11/01/2023 7:56 PM CDT 11/01/2023 8:15 PM CDT Kathryn Quach MD LAB - HEMATOLOGY ORD ERABLES Performing Organization Address [facility] Co de Phone Number [address] [address], [facility] [phone] * (ABNORMAL) PT-INR [facility] (11/01/2023 7:56 PM CDT) Pathologist [facility] PT 15.5(H) 12.1 - 14.8 Seconds 11/01/2023 8:35 PM CDT [facility] INR 1.3 See Comment 11/01/2023 8:35 PM CDT [facility] Comment:The suggested therap eutic range for standard coumadin (warfarin) therapy is an INR of 2.0-3.0. For high-risk patients (Mechanical Mitral Valve Prosthesis, etc.), the suggested prophylactic therapeutic range is an INR of 2.5-3.5. Blood BLOOD SPECIMEN / Unknown Venipuncture / Unknown 11/01/2023 7:56 PM CDT 11/01/2023 8:01 PM CDT Kathryn Quach MD LAB - COAGULATION OR DERABLES Performing Organization Address City/[facility] Co de Phone Number [address] [address], [facility] [phone] * (ABNORMAL) CBC W AUTO DIFFERENTIAL (11/01/2023 7:56 PM CDT) WBC 6.8 4.0 - 10.7 x10E9/L 11/01/2023 9:34 PM CDT [facility] RBC Count 3.80(L) 3.90 - 5.20 x10E12/L 11/01/2023 9:34 PM CDT [facility] Hemoglobin 12.8 11.9 - 15.8 g/dL 11/01/2023 9:34 PM [facility] Hematocrit 38.8 34.8 - 46.1 % 11/01/2023 9:34 PM [facility] MCV 102.1(H) 80.0 - 98.0 fL 11/01/2023 9:34 PM [facility] MCH 33.7(H) 26.7 - 33.6 pg 11/01/2023 9:34 PM [facility] MCHC 33.0 31.7 - 36.3 g/dL 11/01/2023 9:34 PM [facility] Platelet Count 237 150 - 420 x10E9/L 11/01/2023 9:34 PM [facility] MPV 9.2 7.8 - 11.4 fL 11/01/2023 9:34 PM [facility] Neutrophil % 65.8 41.0 - 74.0 % 11/01/2023 9:34 PM [facility] Lymphocyte % 22.3 17.0 - 47.0 % 11/01/2023 9:34 PM [facility] Monocyte % 10.0 3.0 - 11.0 % 11/01/2023 9:34 PM [facility] Eosinophil % 0.9 0.0 - 7.0 % 11/01/2023 9:34 PM [facility] Basophil % 0.4 0.0 - 1.6 % 11/01/2023 9:34 PM [facility] Immature Granulocytes % 0.6 0.0 - 1.0 % 11/01/2023 9:34 PM [facility] Neutrophil Absolute 4.45 1.60 - 7.50 x10E9/L 11/01/2023 9:34 PM [facility] Lymphocyte Absolute 1.51 1.00 - 4.40 x10E9/L 11/01/2023 9:34 PM [facility] Monocyte Absolute 0.68 0.15 - 1.00 x10E9/L 11/01/2023 9:34 PM [facility] Eosinophil Absolute 0.06 0.00 - 0.60 x10E9/L 11/01/2023 9:34 PM [facility] Basophil Absolute 0.03 0.00 - 0.13 x10E9/L 11/01/2023 9:34 PM [facility] Blood BLOOD SPECIMEN / Unknown Venipuncture / Unknown 11/01/2023 7:56 PM CDT 11/01/2023 8:14 PM CDT Kathryn Quach MD LAB - HEMATOLOGY ORD ERABLES Performing Organization Address City/[facility]/ZIP Co de Phone Number [facility] [address] [place] [address], [facility] [phone] * (ABNORMAL) BASIC METABOLIC PANEL (CALCIUM TOTAL) (11/01/2023 7:56 PM CDT) BUN 20 7 - 26 mg/dL 11/01/2023 8:38 PM [facility] Creatinine 0.62 0.56 - 0.96 mg/dL 11/01/2023 8:38 PM [facility] Sodium 138 136 - 145 mmol/L 11/01/2023 8:38 PM [facility] Potassium 4.3 3.5 - 4.5 mmol/L 11/01/2023 8:38 PM [facility] Chloride 107 98 - 107 mmol/L 11/01/2023 8:38 PM [facility] CO2 21(L) 22 - 29 mmol/L 11/01/2023 8:38 PM [facility] Glucose 92 70 - 115 mg/dL 11/01/2023 8:38 PM [facility] Calcium 8.7 8.4 - 10.2 mg/dL 11/01/2023 8:38 PM [facility] Anion Gap 10 6 - 16 11/01/2023 8:38 PM [facility] BUN/Creatinine Ratio 32(H) 7 - 23 11/01/2023 8:38 PM [facility] Osmolality Calculated 288 275 - 295 mOsm/kg 11/01/2023 8:38 PM [facility] eGFR by CKD-EPI 88(L) >=90 mL/min/1.7 3 m2 11/01/2023 8:38 PM [facility] Blood BLOOD SPECIMEN / Unknown Venipuncture / Unknown 11/01/2023 7:56 PM CDT 11/01/2023 8:23 PM CDT aKthryn Quach MD LAB - CHEMISTRY MARIA INES HARTMANN Performing Organization Address [facility]/ZIP Co de Phone Number [facility] [address] [place] [address], [facility] [phone] * ALCOHOL ETHYL BLOOD (11/01/2023 7:56 PM CDT) Ethanol (mg/dL) <10 <10 mg/dL 8:38 PM CDT [facility] Ethanol Calculated (g/dL) <0.010 <=0.010 g/dL 11/01/2023 8:38 PM CDT [facility] Blood BLOOD SPECIMEN / Unknown Venipuncture / Unknown 11/01/2023 7:56 PM CDT 11/01/2023 8:23 PM CDT Narrative [facility] - 11/01/2023 8:38 PM CDT Ethanol Interp <10: None Detected. Depression of [employer]: >100 mg/dl Potentially Critical: >250 mg/dl Potentially [...] Quach MD LAB - CHEMISTRY MARIA INES HARTMANN Performing Organization Address City/[facility]/ZIP Co de Phone Number [facility] [address] [place] [address], [place] [phone] * CT CERVICAL SPINE WO CONTRAST (11/01/2023 [...] endplates at these levels, which may represent wxlyq-go-ervztwrq microtrabecular fractures. No evidence of retropulsion. Recommend [...] DATE/TIME OF EXAM: 11/01/2023 7:48 PM, LOCATION: ??[facility] HISTORY: Trauma ADDITIONAL CLINICAL INFORMATION: Ordering Provider [...] up to 8 mm in thickness (, 20), which is associated with a small laceration. [...] dependent subsegmental atelectasis of the lung apices. Ngbw-oq-blgmdmya calcific atherosclerosis of the carotid bulbs and moderate calcific atherosclerosis of the common carotid arteries. Multiple calcified mediastinal lymph nodes that is suggestive of prior healed granulomatous disease. THORACIC SPINE: ALIGNMENT: Mild kyphosis centered at the T5 level and ylwo-lf-dqyeczop levoconvex curvature of the upper thoracic spine without significant listhesis. No traumatic malalignment. BONES: Age-indeterminate compression fracture deformity of the T5 vertebral body superior endplate associated with a thin sclerotic line and with approximately 30% height loss anteriorly, which may represent an mumxs-el-idkexjof microtrabecular fracture. Age-indeterminate compression fracture deformity of the T6 vertebral body superior endplate associated with a thin sclerotic line and with approximately 30% height loss centrally, which may represent an mdbjq-tw-gqpciati microtrabecular fracture. Chronic-appearing hjkdncr-sn-ubnc height loss remaining thoracic vertebral bodies. No retropulsion at any level. Osseous structures are markedly demineralized. DISCS: Multilevel mild disc space narrowing. DEGENERATIVE CHANGES: Overall mmnb-vt-pcmysuxh multilevel degenerative changes. ?? SPINAL CANAL/NEUROFORAMEN: No significant spinal canal stenosis. High-grade neuroforaminal narrowing at the right T2-T3 through T5-T6 levels and left T10-T11 level in addition to ttji-ob-dnrkoidy neuroforaminal narrowing elsewhere. SOFT TISSUES: Visualized soft tissues are normal. OTHER: Dependent atelectasis of the lungs bilaterally. Mildly tortuous thoracic aorta with xatiawiz-ls-tiywrz calcific atherosclerosis. Multiple calcified mediastinal lymph nodes [...] phenomena at all levels. DEGENERATIVE CHANGES: Overall czkgyrwq-en-frxeoc multilevel degenerative change, characterized by varying degrees of posterior disc bulges, ligamentum flavum hypertrophy, and facet arthropathy. ?? SPINAL CANAL/NEUROFORAMEN: Multilevel spinal canal stenoses that is notably mild at the T12-L1 and L2-L3 levels, zkjfjyff-dj-wmnzke at the L3-L4 and L4-L5 levels, and [...] DATE/TIME OF EXAM: 11/01/2023 7:48 PM, LOCATION: [facility] HISTORY: Trauma ADDITIONAL CLINICAL INFORMATION: Ordering Provider [...] dependent subsegmental atelectasis of the lung apices. Kfzw-du-coxxcuhd calcific atherosclerosis of the carotid bulbs andmoderate calcific atherosclerosis of the common carotid arteries. Multiplecalcified mediastinal lymph nodes that is suggestive of prior healed granulomatous disease. THORACIC SPINE: ALIGNMENT: Mild kyphosis centered at the T5 level and jrsm-jy-szigqlkl levoconvex curvature of the upper thoracic spine without significant listhesis. No traumatic malalignment. BONES: Age-indeterminate compression fracture deformity of the W8voawluqaa body superior endplate associated with a thin sclerotic line and with approximately 30% height loss anteriorly, which may represent an huxfz-za-smznjuml microtrabecular fracture. Age-indeterminatecompression fracture deformity of the T6 vertebral body superior endplate associated with a thin sclerotic line and with approximately 30% height loss centrally, which may represent an xaacx-ps-iekqhppl microtrabecular fracture. Chronic-appearing ifpytxr-qa-ojln height loss remainingthoracic vertebral bodies. No retropulsion at any level. Osseous structures are markedly demineralized. DISCS: Multilevel mild disc space narrowing. DEGENERATIVE CHANGES: Overall sdft-ak-sefbjsdp multilevel degenerative changes. SPINAL CANAL/NEUROFORAMEN: No significant spinal canal stenosis.High-grade neuroforaminal narrowing at the right T2-T3 through T5-T6 levels andleft T10-T11 level in addition to luzc-ot-qgdihdca neuroforaminal narrowing elsewhere. SOFT TISSUES: Visualized soft tissues are normal. OTHER: Dependent atelectasis of the lungs bilaterally. Mildly tortuous thoracic aorta with fhgulmsy-lz-ssouwc calcific atherosclerosis.Multiple calcified mediastinal lymph nodes that [...] of the L1 vertebral body resulting in rtliirkfbnrza45% height loss associated with approximately 4 mm retropulsion and evidence prior vertebroplasty/kyphoplasty change. Remaining vertebral bodyheights are maintained. 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 Osseous structures are markedly demineralized. DISCS: Multilevel advanced disc space narrowing and vacuum discphenomena at all levels. DEGENERATIVE CHANGES: Overall pqwhgsjz-ao-umerwj multilevel degenerative change, characterized by varying degrees of posterior disc bulges, ligamentum flavum hypertrophy, and facet arthropathy. SPINAL CANAL/NEUROFORAMEN: Multilevel spinal canal stenoses that isnotably mild at the T12-L1 and L2-L3 levels, odwtdwpf-kp-qymajm at the L3-L4 and L4-L5 levels, and [...] endplates at these levels, which may represent jpirl-cl-crahngxb microtrabecular fractures. No evidence of retropulsion. Recommend [...] Mckay Church MD CT ORDERABLES * CT LUMBAR SPINE [...] endplates at these levels, which may represent ragtz-lz-noqfluqi microtrabecular fractures. No evidence of retropulsion. Recommend [...] DATE/TIME OF EXAM: 11/01/2023 7:48 PM, LOCATION: ??[facility] HISTORY: Trauma ADDITIONAL CLINICAL INFORMATION: Ordering Provider [...] dependent subsegmental atelectasis of the lung apices. Wczg-sq-cdgfsahf calcific atherosclerosis of the carotid bulbs and moderate calcific atherosclerosis of the common carotid arteries. Multiple calcified mediastinal lymph nodes that is suggestive of prior healed granulomatous disease. THORACIC SPINE: ALIGNMENT: Mild kyphosis centered at the T5 level and ofsp-jf-uyhlpnkc levoconvex curvature of the upper thoracic spine without significant listhesis. No traumatic malalignment. BONES: Age-indeterminate compression fracture deformity of the T5 vertebral body superior endplate associated with a thin sclerotic line and with approximately 30% height loss anteriorly, which may represent an nvbye-jg-mggzwvld microtrabecular fracture. Age-indeterminate compression fracture deformity of the T6 vertebral body superior endplate associated with a thin sclerotic line and with approximately 30% height loss centrally, which may represent an ovppa-cj-wznahjyp microtrabecular fracture. Chronic-appearing cmbnxvk-xl-qtyg height loss remaining thoracic vertebral bodies. No retropulsion at any level. Osseous structures are markedly demineralized. DISCS: Multilevel mild disc space narrowing. DEGENERATIVE CHANGES: Overall bwms-jr-odriuole multilevel degenerative changes. ?? SPINAL CANAL/NEUROFORAMEN: No significant spinal canal stenosis. High-grade neuroforaminal narrowing at the right T2-T3 through T5-T6 levels and left T10-T11 level in addition to drwp-zq-nmsmbioj neuroforaminal narrowing elsewhere. SOFT TISSUES: Visualized soft tissues are normal. OTHER: Dependent atelectasis of the lungs bilaterally. Mildly tortuous thoracic aorta with qcfjlojd-mi-exrfcv calcific atherosclerosis. Multiple calcified mediastinal lymph nodes [...] phenomena at all levels. DEGENERATIVE CHANGES: Overall wsfqmixo-ux-ylnbec multilevel degenerative change, characterized by varying degrees of posterior disc bulges, ligamentum flavum hypertrophy, and facet arthropathy. ?? SPINAL CANAL/NEUROFORAMEN: Multilevel spinal canal stenoses that is notably mild at the T12-L1 and L2-L3 levels, auxqaigd-av-edhcff at the L3-L4 and L4-L5 levels, and [...] DATE/TIME OF EXAM: 11/01/2023 7:48 PM, LOCATION: [facility] HISTORY: Trauma ADDITIONAL CLINICAL INFORMATION: Ordering Provider [...] dependent subsegmental atelectasis of the lung apices. Samz-vf-povqrqbd calcific atherosclerosis of the carotid bulbs andmoderate calcific atherosclerosis of the common carotid arteries. Multiplecalcified mediastinal lymph nodes that is suggestive of prior healed granulomatous disease. THORACIC SPINE: ALIGNMENT: Mild kyphosis centered at the T5 level and mmai-pg-rmtsvfbm levoconvex curvature of the upper thoracic spine without significant listhesis. No traumatic malalignment. BONES: Age-indeterminate compression fracture deformity of the D4xgnnzkqdh body superior endplate associated with a thin sclerotic line and with approximately 30% height loss anteriorly, which may represent an dspwp-ts-pbeupkoz microtrabecular fracture. Age-indeterminatecompression fracture deformity of the T6 vertebral body superior endplate associated with a thin sclerotic line and with approximately 30% height loss centrally, which may represent an bjbzl-xm-wntznute microtrabecular fracture. Chronic-appearing khugebt-lz-jfta height loss remainingthoracic vertebral bodies. No retropulsion at any level. Osseous structures are markedly demineralized. DISCS: Multilevel mild disc space narrowing. DEGENERATIVE CHANGES: Overall afwq-tf-ytgffbke multilevel degenerative changes. SPINAL CANAL/NEUROFORAMEN: No significant spinal canal stenosis.High-grade neuroforaminal narrowing at the right T2-T3 through T5-T6 levels andleft T10-T11 level in addition to lbsq-ky-ebgyegxe neuroforaminal narrowing elsewhere. SOFT TISSUES: Visualized soft tissues are normal. OTHER: Dependent atelectasis of the lungs bilaterally. Mildly tortuous thoracic aorta with faxlwcar-qn-hzztnj calcific atherosclerosis.Multiple calcified mediastinal lymph nodes that [...] of the L1 vertebral body resulting in ciiqlxfnvyklc09% height loss associated with approximately 4 mm retropulsion and evidence prior vertebroplasty/kyphoplasty change. Remaining vertebral bodyheights are maintained. 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 Osseous structures are markedly demineralized. DISCS: Multilevel advanced disc space narrowing and vacuum discphenomena at all levels. DEGENERATIVE CHANGES: Overall sgoomfuv-vn-uukvha multilevel degenerative change, characterized by varying degrees of posterior disc bulges, ligamentum flavum hypertrophy, and facet arthropathy. SPINAL CANAL/NEUROFORAMEN: Multilevel spinal canal stenoses that isnotably mild at the T12-L1 and L2-L3 levels, kqqbmfvx-po-euuutf at the L3-L4 and L4-L5 levels, and [...] endplates at these levels, which may represent abtna-gg-zjlrpvhm microtrabecular fractures. No evidence of retropulsion. Recommend [...] endplates at these levels, which may represent phltj-zp-wrzzxcfv microtrabecular fractures. No evidence of retropulsion. Recommend [...] DATE/TIME OF EXAM: 11/01/2023 7:48 PM, LOCATION: ??[facility] HISTORY: Trauma ADDITIONAL CLINICAL INFORMATION: Ordering Provider [...] up to 8 mm in thickness (, /), which is associated with a small [...] dependent subsegmental atelectasis of the lung apices. Pqsb-is-ikxgmnlj calcific atherosclerosis of the carotid bulbs and moderate calcific atherosclerosis of the common carotid arteries. Multiple calcified mediastinal lymph nodes that is suggestive of prior healed granulomatous disease. THORACIC SPINE: ALIGNMENT: Mild kyphosis centered at the T5 level and busi-xn-zzyfoqmj levoconvex curvature of the upper thoracic spine without significant listhesis. No traumatic malalignment. BONES: Age-indeterminate compression fracture deformity of the T5 vertebral body superior endplate associated with a thin sclerotic line and with approximately 30% height loss anteriorly, which may represent an qmzvu-rj-jpzwotpo microtrabecular fracture. Age-indeterminate compression fracture deformity of the T6 vertebral body superior endplate associated with a thin sclerotic line and with approximately 30% height loss centrally, which may represent an noqzc-un-lfhrkdbb microtrabecular fracture. Chronic-appearing zujqdtj-eg-uhzr height loss remaining thoracic vertebral bodies. No retropulsion at any level. Osseous structures are markedly demineralized. DISCS: Multilevel mild disc space narrowing. DEGENERATIVE CHANGES: Overall tjof-yj-ruukdabc multilevel degenerative changes. ?? SPINAL CANAL/NEUROFORAMEN: No significant spinal canal stenosis. High-grade neuroforaminal narrowing at the right T2-T3 through T5-T6 levels and left T10-T11 level in addition to hizn-mk-qdqywsdk neuroforaminal narrowing elsewhere. SOFT TISSUES: Visualized soft tissues are normal. OTHER: Dependent atelectasis of the lungs bilaterally. Mildly tortuous thoracic aorta with bslyfwdi-dt-ykljkv calcific atherosclerosis. Multiple calcified mediastinal lymph nodes [...] phenomena at all levels. DEGENERATIVE CHANGES: Overall iaxdvmsr-zy-unlbxe multilevel degenerative change, characterized by varying degrees of posterior disc bulges, ligamentum flavum hypertrophy, and facet arthropathy. ?? SPINAL CANAL/NEUROFORAMEN: Multilevel spinal canal stenoses that is notably mild at the T12-L1 and L2-L3 levels, ojmlhhna-ya-jrocht at the L3-L4 and L4-L5 levels, and [...] DATE/TIME OF EXAM: 11/01/2023 7:48 PM, LOCATION: [facility] HISTORY: Trauma ADDITIONAL CLINICAL INFORMATION: Ordering Provider [...] dependent subsegmental atelectasis of the lung apices. Gnpo-js-ukxcohpc calcific atherosclerosis of the carotid bulbs andmoderate calcific atherosclerosis of the common carotid arteries. Multiplecalcified mediastinal lymph nodes that is suggestive of prior healed granulomatous disease. THORACIC SPINE: ALIGNMENT: Mild kyphosis centered at the T5 level and mtrm-cl-jazpwqwd levoconvex curvature of the upper thoracic spine without significant listhesis. No traumatic malalignment. BONES: Age-indeterminate compression fracture deformity of the M5tfcplxmal body superior endplate associated with a thin sclerotic line and with approximately 30% height loss anteriorly, which may represent an suqzh-cg-nrndgncl microtrabecular fracture. Age-indeterminatecompression fracture deformity of the T6 vertebral body superior endplate associated with a thin sclerotic line and with approximately 30% height loss centrally, which may represent an sdqmi-uf-iwidfwuz microtrabecular fracture. Chronic-appearing btxdsns-fd-bigu height loss remainingthoracic vertebral bodies. No retropulsion at any level. Osseous structures are markedly demineralized. DISCS: Multilevel mild disc space narrowing. DEGENERATIVE CHANGES: Overall swdg-df-ouceejgm multilevel degenerative changes. SPINAL CANAL/NEUROFORAMEN: No significant spinal canal stenosis.High-grade neuroforaminal narrowing at the right T2-T3 through T5-T6 levels andleft T10-T11 level in addition to dabj-nx-zyomaxbi neuroforaminal narrowing elsewhere. SOFT TISSUES: Visualized soft tissues are normal. OTHER: Dependent atelectasis of the lungs bilaterally. Mildly tortuous thoracic aorta with bsmlpqcl-bt-wdrbkk calcific atherosclerosis.Multiple calcified mediastinal lymph nodes that [...] of the L1 vertebral body resulting in qnozkbobsjilf80% height loss associated with approximately 4 mm retropulsion and evidence prior vertebroplasty/kyphoplasty change. Remaining vertebral bodyheights are maintained. 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 Osseous structures are markedly demineralized. DISCS: Multilevel advanced disc space narrowing and vacuum discphenomena at all levels. DEGENERATIVE CHANGES: Overall ppoptcjm-pn-wfqtyc multilevel degenerative change, characterized by varying degrees of posterior disc bulges, ligamentum flavum hypertrophy, and facet arthropathy. SPINAL CANAL/NEUROFORAMEN: Multilevel spinal canal stenoses that isnotably mild at the T12-L1 and L2-L3 levels, ecztsgyn-vf-lrfbvg at the L3-L4 and L4-L5 levels, and [...] endplates at these levels, which may represent tcrps-cy-kmhlkxuj microtrabecular fractures. No evidence of retropulsion. Recommend [...] Kathryn Quach MD CT ORDERABLES * CT CHEST ABDOMEN PELVIS W CONT [...] pelvis. > Dictated by Paxton Whitley DO (residential mental health worker). I, Milad Mcnulty MD have personally reviewed and interpreted this examination/study. > Interpreting Provider: Milad Mcnulty MD on 11/01/2023 10:30 PM Narrative 11/01/2023 10:30 PM CDT PROCEDURE: ??CT CHEST ABDOMEN PELVIS W CONT, DATE/TIME OF EXAM: ??11/01/2023 7:48 PM, LOCATION ??[facility] INDICATION: Trauma ADDITIONAL CLINICAL INFORMATION: Ordering Provider [...] CONT, DATE/TIME OF EXAM:11/01/2023 7:48 PM, LOCATION [facility] INDICATION: Trauma ADDITIONAL CLINICAL INFORMATION: Ordering Provider [...] Impression: 1.Age-indeterminate, likely chronic, compression deformity of U2pjyfrrqfn body with mild height loss. Refer to dedicated spine CT. 2.Otherwise, no acute chest, abdomen, or pelvis. > Dictated by Paxton Whitley DO (residential mental health worker). I, Milad Mcnulty MD have personally reviewed and interpreted this examination/study. > Interpreting Provider: Milad Mcnulty MD on 11/01/2023 10:30 PM Kathryn Quach MD CT ORDERABLES * CT FACIAL BONES [...] endplates at these levels, which may represent givda-yq-bvibatki microtrabecular fractures. No evidence of retropulsion. Recommend [...] DATE/TIME OF EXAM: 11/01/2023 7:48 PM, LOCATION: ??[facility] HISTORY: Trauma ADDITIONAL CLINICAL INFORMATION: Ordering Provider [...] dependent subsegmental atelectasis of the lung apices. Qchh-ng-yrkfrbqw calcific atherosclerosis of the carotid bulbs and moderate calcific atherosclerosis of the common carotid arteries. Multiple calcified mediastinal lymph nodes that is suggestive of prior healed granulomatous disease. THORACIC SPINE: ALIGNMENT: Mild kyphosis centered at the T5 level and ybmu-ne-psdtujrb levoconvex curvature of the upper thoracic spine without significant listhesis. No traumatic malalignment. BONES: Age-indeterminate compression fracture deformity of the T5 vertebral body superior endplate associated with a thin sclerotic line and with approximately 30% height loss anteriorly, which may represent an xkqzv-zq-uswkbqtx microtrabecular fracture. Age-indeterminate compression fracture deformity of the T6 vertebral body superior endplate associated with a thin sclerotic line and with approximately 30% height loss centrally, which may represent an dbtfd-pl-rkszhvpv microtrabecular fracture. Chronic-appearing lxcyfyv-ml-nrpq height loss remaining thoracic vertebral bodies. No retropulsion at any level. Osseous structures are markedly demineralized. DISCS: Multilevel mild disc space narrowing. DEGENERATIVE CHANGES: Overall zkyx-ln-uxhufiuw multilevel degenerative changes. ?? SPINAL CANAL/NEUROFORAMEN: No significant spinal canal stenosis. High-grade neuroforaminal narrowing at the right T2-T3 through T5-T6 levels and left T10-T11 level in addition to wddw-ue-atseehet neuroforaminal narrowing elsewhere. SOFT TISSUES: Visualized soft tissues are normal. OTHER: Dependent atelectasis of the lungs bilaterally. Mildly tortuous thoracic aorta with wsaeacdc-xa-mecpsy calcific atherosclerosis. Multiple calcified mediastinal lymph nodes [...] phenomena at all levels. DEGENERATIVE CHANGES: Overall tewxwpwi-oi-ixpmzr multilevel degenerative change, characterized by varying degrees of posterior disc bulges, ligamentum flavum hypertrophy, and facet arthropathy. ?? SPINAL CANAL/NEUROFORAMEN: Multilevel spinal canal stenoses that is notably mild at the T12-L1 and L2-L3 levels, tnpwtjkl-ma-ubnsfp at the L3-L4 and L4-L5 levels, and [...] DATE/TIME OF EXAM: 11/01/2023 7:48 PM, LOCATION: [facility] HISTORY: Trauma ADDITIONAL CLINICAL INFORMATION: Ordering Provider [...] dependent subsegmental atelectasis of the lung apices. Snfp-ei-wpdjtblk calcific atherosclerosis of the carotid bulbs andmoderate calcific atherosclerosis of the common carotid arteries. Multiplecalcified mediastinal lymph nodes that is suggestive of prior healed granulomatous disease. THORACIC SPINE: ALIGNMENT: Mild kyphosis centered at the T5 level and gziw-un-ghcxvlro levoconvex curvature of the upper thoracic spine without significant listhesis. No traumatic malalignment. BONES: Age-indeterminate compression fracture deformity of the G0owkvcpnsc body superior endplate associated with a thin sclerotic line and with approximately 30% height loss anteriorly, which may represent an vwfww-zo-kymhjprh microtrabecular fracture. Age-indeterminatecompression fracture deformity of the T6 vertebral body superior endplate associated with a thin sclerotic line and with approximately 30% height loss centrally, which may represent an yxdby-xx-bxhkjekk microtrabecular fracture. Chronic-appearing aulqjqc-dp-pabe height loss remainingthoracic vertebral bodies. No retropulsion at any level. Osseous structures are markedly demineralized. DISCS: Multilevel mild disc space narrowing. DEGENERATIVE CHANGES: Overall bkwo-jo-osmiiijq multilevel degenerative changes. SPINAL CANAL/NEUROFORAMEN: No significant spinal canal stenosis.High-grade neuroforaminal narrowing at the right T2-T3 through T5-T6 levels andleft T10-T11 level in addition to zctx-ec-xtttgrxo neuroforaminal narrowing elsewhere. SOFT TISSUES: Visualized soft tissues are normal. OTHER: Dependent atelectasis of the lungs bilaterally. Mildly tortuous thoracic aorta with xhxolrmm-qv-xgupqk calcific atherosclerosis.Multiple calcified mediastinal lymph nodes that [...] of the L1 vertebral body resulting in feacedkljqeuv04% height loss associated with approximately 4 mm retropulsion and evidence prior vertebroplasty/kyphoplasty change. Remaining vertebral bodyheights are maintained. 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 Osseous structures are markedly demineralized. DISCS: Multilevel advanced disc space narrowing and vacuum discphenomena at all levels. DEGENERATIVE CHANGES: Overall tupvjeak-gq-eyoupp multilevel degenerative change, characterized by varying degrees of posterior disc bulges, ligamentum flavum hypertrophy, and facet arthropathy. SPINAL CANAL/NEUROFORAMEN: Multilevel spinal canal stenoses that isnotably mild at the T12-L1 and L2-L3 levels, qzapupam-bc-juzxfw at the L3-L4 and L4-L5 levels, and [...] endplates at these levels, which may represent mhrin-cj-mflkxwuh microtrabecular fractures. No evidence of retropulsion. Recommend [...] endplates at these levels, which may represent psngi-yq-pxkdndut microtrabecular fractures. No evidence of retropulsion. Recommend [...] DATE/TIME OF EXAM: 11/01/2023 7:48 PM, LOCATION: ??[facility] HISTORY: Trauma ADDITIONAL CLINICAL INFORMATION: Ordering Provider [...] dependent subsegmental atelectasis of the lung apices. Ncaf-cd-mdifxamq calcific atherosclerosis of the carotid bulbs and moderate calcific atherosclerosis of the common carotid arteries. Multiple calcified mediastinal lymph nodes that is suggestive of prior healed granulomatous disease. THORACIC SPINE: ALIGNMENT: Mild kyphosis centered at the T5 level and nicq-iz-zrmmxthj levoconvex curvature of the upper thoracic spine without significant listhesis. No traumatic malalignment. BONES: Age-indeterminate compression fracture deformity of the T5 vertebral body superior endplate associated with a thin sclerotic line and with approximately 30% height loss anteriorly, which may represent an xjihl-gm-cmwzbhpq microtrabecular fracture. Age-indeterminate compression fracture deformity of the T6 vertebral body superior endplate associated with a thin sclerotic line and with approximately 30% height loss centrally, which may represent an neguq-cx-lqiojntk microtrabecular fracture. Chronic-appearing tnzkrop-dn-yonp height loss remaining thoracic vertebral bodies. No retropulsion at any level. Osseous structures are markedly demineralized. DISCS: Multilevel mild disc space narrowing. DEGENERATIVE CHANGES: Overall aose-pm-bouiroxs multilevel degenerative changes. ?? SPINAL CANAL/NEUROFORAMEN: No significant spinal canal stenosis. High-grade neuroforaminal narrowing at the right T2-T3 through T5-T6 levels and left T10-T11 level in addition to wvta-ad-nsryhubg neuroforaminal narrowing elsewhere. SOFT TISSUES: Visualized soft tissues are normal. OTHER: Dependent atelectasis of the lungs bilaterally. Mildly tortuous thoracic aorta with dfahldrt-zs-atmjen calcific atherosclerosis. Multiple calcified mediastinal lymph nodes [...] phenomena at all levels. DEGENERATIVE CHANGES: Overall hxnsfboo-pp-drbreb multilevel degenerative change, characterized by varying degrees of posterior disc bulges, ligamentum flavum hypertrophy, and facet arthropathy. ?? SPINAL CANAL/NEUROFORAMEN: Multilevel spinal canal stenoses that is notably mild at the T12-L1 and L2-L3 levels, exdckhnc-yv-lohrhk at the L3-L4 and L4-L5 levels, and [...] DATE/TIME OF EXAM: 11/01/2023 7:48 PM, LOCATION: [facility] HISTORY: Trauma ADDITIONAL CLINICAL INFORMATION: Ordering Provider [...] measuring up to 8 mm in thickness (6, 01/09), which is associated with a small [...] dependent subsegmental atelectasis of the lung apices. Frpo-hp-yldfmuob calcific atherosclerosis of the carotid bulbs andmoderate calcific atherosclerosis of the common carotid arteries. Multiplecalcified mediastinal lymph nodes that is suggestive of prior healed granulomatous disease. THORACIC SPINE: ALIGNMENT: Mild kyphosis centered at the T5 level and cfrn-bh-kkdsagwr levoconvex curvature of the upper thoracic spine without significant listhesis. No traumatic malalignment. BONES: Age-indeterminate compression fracture deformity of the Y2uqaxrmwba body superior endplate associated with a thin sclerotic line and with approximately 30% height loss anteriorly, which may represent an ghkwk-eh-cdvwqyzl microtrabecular fracture. Age-indeterminatecompression fracture deformity of the T6 vertebral body superior endplate associated with a thin sclerotic line and with approximately 30% height loss centrally, which may represent an cwflr-rk-vfdpygmq microtrabecular fracture. Chronic-appearing ojmiaft-le-diyx height loss remainingthoracic vertebral bodies. No retropulsion at any level. Osseous structures are markedly demineralized. DISCS: Multilevel mild disc space narrowing. DEGENERATIVE CHANGES: Overall odnf-pc-gxyjgjtd multilevel degenerative changes. SPINAL CANAL/NEUROFORAMEN: No significant spinal canal stenosis.High-grade neuroforaminal narrowing at the right T2-T3 through T5-T6 levels andleft T10-T11 level in addition to mmcq-fq-vufeerad neuroforaminal narrowing elsewhere. SOFT TISSUES: Visualized soft tissues are normal. OTHER: Dependent atelectasis of the lungs bilaterally. Mildly tortuous thoracic aorta with ymdjucfi-kz-ztowju calcific atherosclerosis.Multiple calcified mediastinal lymph nodes that [...] of the L1 vertebral body resulting in nqahqdwoqlfsd37% height loss associated with approximately 4 mm retropulsion and evidence prior vertebroplasty/kyphoplasty change. Remaining vertebral bodyheights are maintained. 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 Osseous structures are markedly demineralized. DISCS: Multilevel advanced disc space narrowing and vacuum discphenomena at all levels. DEGENERATIVE CHANGES: Overall jhiigdjz-zp-lfvtpe multilevel degenerative change, characterized by varying degrees of posterior disc bulges, ligamentum flavum hypertrophy, and facet arthropathy. SPINAL CANAL/NEUROFORAMEN: Multilevel spinal canal stenoses that isnotably mild at the T12-L1 and L2-L3 levels, ladwcsti-zn-lbzciq at the L3-L4 and L4-L5 levels, and [...] endplates at these levels, which may represent zvbnk-eg-cgxxgano microtrabecular fractures. No evidence of retropulsion. Recommend [...] Report dictated by Sarah Keith Dr, MD (residential mental health worker). I, Loreto Bone MD have personally reviewed and interpreted this examination/study. > Interpreting Provider: Loreto Bone MD on 11/01/2023 9:17 PM Narrative 11/01/2023 9:17 PM CDT PROCEDURE: ??XR PELVIS 1 OR 2VW, DATE/TIME OF EXAM: ??11/01/2023 7:10 PM, LOCATION ??[facility] INDICATION: T14.90XA: Trauma ADDITIONAL CLINICAL INFORMATION: Ordering [...] DATE/TIME OF EXAM: 11/01/2023 7:10 PM, LOCATION [facility] INDICATION: T14.90XA: Trauma ADDITIONAL CLINICAL INFORMATION: Ordering [...] Report dictated by Sarah Keith Dr, MD (residential mental health worker). Loreto Jacques MD have personally reviewed and interpreted this examination/study. > Interpreting Provider: Loreto Bone MD on 49:17 PM Kathryn Quach MD DIAGNOSTIC IMAGING O RDERABLES * XR CHEST 1VW PORTABLE (11/01/2023 7:10 PM CDT) Anatomical Region Laterality Modality Chest Radiographic Anahy ging 11/01/2023 7:19 PM CDT Narrative 11/01/2023 9:17 PM CDT PROCEDURE: ??XR CHEST 1VW PORTABLE, DATE/TIME OF EXAM: ??11/01/2023 7:10 PM, LOCATION ??[facility] INDICATION: Trauma ADDITIONAL CLINICAL INFORMATION: COMPARISON: None. FINDINGS/IMPRESSION: Hazy appearance of the bilateral lungs may be secondary to atelectasis versus multifocal infection. No pneumothorax. The heart and mediastinum appear enlarged which may be due to portable technique however cannot rule out vascular injury in the setting of trauma. This will be better present CT chest abdomen pelvis. Calcified calcification of the aortic arch. No displaced fractures identified. Rim-like calcification seen overlapping the right chest tube, likely calcified breast implant. Report dictated by Sarah Keith Dr, MD (residential mental health worker). Loreto Jacques MD have personally reviewed and interpreted this examination/study. > Interpreting Provider: Loreto Bone MD on 11/01/2023 9:17 PM Procedure Note Loreto Bone MD - 11/01/2023 PROCEDURE: XR CHEST 1VW PORTABLE, DATE/TIME OF EXAM: 11/01/2023 7:10PM, LOCATION [facility] INDICATION: Trauma ADDITIONAL CLINICAL INFORMATION: COMPARISON: None. FINDINGS/IMPRESSION: Hazy appearance of the bilateral lungs may be secondary to atelectasis versus multifocal infection. No pneumothorax. The heart and mediastinum appear enlarged which may be due to portable technique however cannotrule out vascular injury in the setting of trauma. This will be betterpresent CT chest abdomen pelvis. Calcified calcification of the aortic arch. No displaced fractures identified. Rim-like calcification seen overlappingthe right chest tube, likely calcified breast implant. Report dictated by Sarah Keith Dr, MD (residential mental health worker). I, Loreto Bone MD have personally reviewed and interpreted this examination/study. > Interpreting Provider: Loreto Bone MD on 49:17 PM Kathryn Quach MD DIAGNOSTIC IMAGING O RDERABLES documented in this encounter Visit Diagnoses Diagnosis Other closed fracture of thoracic vertebra, unspecified thoracic vertebral level, initial encounter ([facility])- Primary Trauma Injury, other and unspecified, unspecified site Closed fracture of multiple ribs of left side, initial encounter Other closed fracture of thoracic vertebra, unspecified thoracic vertebral level, initial encounter ([facility]) Allergies Trauma Injury, other and unspecified, unspecified site Closed fracture of multiple ribs of left side, initial encounter Acute traumatic pain Acute pain due to trauma Scalp laceration Open wound of scalp, without mention of complication Papules Other specified disorder of skin Closed fracture of multiple ribs of left side, initial encounter documented in this encounter Administered Medications Inactive Administered Medications - up to 3 most recent administrations Medication Order MAR Action Action Date Dose Rate Site 0.9% NaCl injection 1-10 mL 1-10 mL, Intracatheter, PRN, Other, peripheral line flush, Starting on 11/01/23 at 1856, Until 11/08/23 at 184, Flush peripheral IV catheter with 1-10 mL of normal saline before and after medications and prn to clear blood from the line or to verify patency. 0.9% NaCl injection 1-10 mL 1-10 mL, Intracatheter, PRN, Other, peripheral line flush, Starting on 11/02/23 at 0136, Until 11/08/23 at 1841, Flush peripheral IV catheter with 1-10 mL of normal saline before and after medications and prn to clear blood from the line or to verify patency. 0.9% NaCl injection 3 mL 3 mL, Intracatheter, EVERY 8 HOURS, First dose on 11/01/23 at 2200, Until Discontinued, Flush peripheral IV catheter with 3 mL of normal saline every 8 hours. $ Given 11/07/2023 9:58 PM CDT 3 mL $ Given 11/07/2023 2:29 PM CDT 3 mL $ Given 11/06/2023 9:42 PM CDT 3 mL 0.9% NaCl injection 3 mL 3 mL, Intracatheter, EVERY 8 HOURS, First dose on 11/02/23 at 0600, Until Discontinued, Flush peripheral IV catheter with 3 mL of normal saline every 8 hours. $ Given 11/08/2023 6:03 AM CDT 3 mL $ Given 11/07/2023 9:53 PM CDT 3 mL $ Given 11/07/2023 2:30 PM CDT 3 mL 0.9% NaCl IV bolus 1,000 mL, at 983.61 mL/hr, Administer over 61 Minutes, NOW, 1 dose, On 11/01/23 at 1900 $ New Bag/Syringe 11/01/2023 8:06 PM CDT 1,000 mL 983.61 mL/hr acetaminophen (Tylenol) tablet 500 mg 500 mg, Oral, EVERY 4 HOURS PRN, Headache, Starting on 11/01/23 at 2100, Until 11/03/23 at 1123, Patient preference for lesser PRN pain meds may be honored when the patient requests a less strong medication, a lower dose, or a less intrusive route of administration when the lesser drug, dose and route have been ordered for the patient. This patient request must be documented in the MAR. If both oral and IV options are ordered for the same pain severity, give oral first unless patient cannot tolerate oral intake $ Given 11/01/2023 10:51 PM CDT 500 mg acetaminophen (Tylenol) tablet 650 mg 650 mg, Oral, EVERY 6 HOURS, 20 doses, First dose on 11/02/23 at 0215, Last dose on Mily 11/06/23 at 1800, Patient preference for lesser PRN pain meds may be honored when the patient requests a less strong medication, a lower dose, or a less intrusive route of administration when the lesser drug, dose and route have been ordered for the patient. This patient request must be documented in the MAR. If both oral and IV options are ordered for the same pain severity, give oral first unless patient cannot tolerate oral intake $ Given 11/03/2023 6:08 AM CDT 650 mg $ Given 11/03/2023 12:32 AM CDT 650 mg $ Given 11/02/2023 6:48 PM CDT 650 mg albuterol-ipratropium (Duo-Neb) nebulizer solution 3 mL 3 mL, Inhalation, EVERY 6 HOURS PRN, Shortness of Breath, Wheezing, Starting on Fri11/03/23 at 0625, Until Fri11/08/23 at 1841 amLODIPine (Norvasc) tablet 5 mg 5 mg, Oral, DAILY, First dose on Fri11/04/23 at 0900, Until Discontinued $ Given 11/08/2023 7:51 AM CDT 5 mg $ Given 11/07/2023 8:44 AM CDT 5 mg $ Given 11/06/2023 9:32 AM CDT 5 mg apixaban (Eliquis) tablet 5 mg 5 mg, Oral, 2 TIMES DAILY, First dose on Fri11/04/23 at 0900, Until Discontinued $ Given 11/08/2023 10:02 AM CDT 5 mg $ Given 11/07/2023 9:55 PM CDT 5 mg $ Given 11/07/2023 8:43 AM CDT 5 mg ascorbic acid (VITAMIN C) tablet 500 mg 500 mg, Oral, DAILY, First dose on Fri11/07/23 at 0900, Until Discontinued $ Given 11/08/2023 10:02 AM CDT 500 mg $ Given 11/07/2023 8:42 AM CDT 500 mg atorvastatin (Lipitor) tablet 40 mg 40 mg, Oral, DAILY, First dose on Fri11/02/23 at 0900, Until Discontinued $ Given 11/08/2023 10:02 AM CDT 40 mg $ Given 11/07/2023 8:44 AM CDT 40 mg $ Given 11/06/2023 9:31 AM CDT 40 mg bacitracin topical ointment Topical, 3 TIMES DAILY, First dose on Fri11/02/23 at 0900, Until Discontinued, Apply to posterior scalp laceration $ Given 11/08/2023 2:08 PM CDT $ Given 11/08/2023 10:03 AM CDT $ Given 11/07/2023 9:57 PM CDT cyclobenzaprine (Flexeril) tablet 10 mg 10 mg, Oral, 3 TIMES DAILY PRN, Muscle Spasms, Starting on 11/02/23 at 0139, Until 11/03/23 at 1124 $ Given 11/03/2023 10:14 AM CDT 10 mg enoxaparin (Lovenox) injection 30 mg 30 mg, Subcutaneous, EVERY 12 HOURS, First dose on 11/02/23 at 0900, Until Discontinued, (for prefilled syringes) do not expel air bubble from the syringe prior to the injection Remind Patient to not rub injection site. Could cause hematoma. $ Given 11/03/2023 9:10 PM CDT 30 mg Abd Left Lower Quadr ant $ Given 11/03/2023 8:14 AM CDT 30 mg Ab dominal Tissue $ Given 11/02/2023 9:15 PM CDT 30 mg Ab d Right Upper Quadrant famotidine (Pepcid) tablet 20 mg 20 mg, Oral, 2 TIMES DAILY, First dose on 11/02/23 at 0230, Until Discontinued $ Given 11/08/2023 10:02 AM CDT 20 mg $ Given 11/07/2023 9:55 PM CDT 20 mg $ Given 11/07/2023 8:44 AM CDT 20 mg fentaNYL (PF) (Sublimaze) injection 50 mcg 50 mcg, Intravenous, ONCE, 1 dose, On 11/01/23 at 1930, Patient preference for lesser PRN pain meds may be honored when the patient requests a less strong medication, a lower dose, or a less intrusive route of administration when the lesser drug, dose and route have been ordered for the patient. This patient request must be documented in the MAR. If both oral and IV options are ordered for the same pain severity, give oral first unless patient cannot tolerate oral intake $ Given 11/01/2023 7:23 P M CDT 50 mcg furosemide (Lasix) tablet 40 mg 40 mg, Oral, DAILY, First dose on Mily 11/06/23 at 1245, Until Discontinued $ Given 11/08/2023 10:02 AM CDT 40 mg $ Given 11/07/2023 8:44 AM CDT 40 mg $ Given 11/06/2023 1:24 PM CDT 40 mg HYDROcodone-acetaminophen ([place]) 10-325 MG tablet 1 tablet 1 tablet, Oral, 3 TIMES DAILY, First dose on Fri11/03/23 at 1400, Until Discontinued, Not to exceed 4000 mg of acetaminophen per day from all sources combined Patient preference for lesser PRN pain meds may be honored when the patient requests a less strong medication, a lower dose, or a less intrusive route of administration when the lesser drug, dose and route have been ordered for the patient. This patient request must be documented in the MAR. If both oral and IV options are ordered for the same pain severity, give oral first unless patient cannot tolerate oral intake $ Given 11/08/2023 2:08 PM CDT 1 tablet $ Given 11/08/2023 6:03 AM CDT 1 tablet $ Given 11/07/2023 9:55 PM CDT 1 tablet iopamidol (Isovue 370) 76 % contrast Intravenous, CONTRAST ONCE, Starting on 11/01/23 at 1912, Until 11/03/23 at 1911 $ Given - Contrast 11/01/2023 7:13 PM CDT 150 mL labetalol (Normodyne; Trandate) injection 10 mg 10 mg, Intravenous, ONCE, 1 dose, On Tu11/04/23 at 0115, For SBP > 160, do not give if HR < 60 Max IV dose is 300mg/24 hours. $ Given 11/04/2023 1:25 AM CDT 10 mg latanoprost (Xalatan) 0.005 % ophthalmic solution 1 drop 1 drop, Each Eye, AT BEDTIME, First dose (after last modification) on Fri11/02/23 at 0245, Until Discontinued, Once opened, store at room temperature for up to 6 weeks. $ Given 11/07/2023 9:57 PM CDT 1 drop $ Given 11/06/2023 9:42 PM CDT 1 drop $ Given 11/05/2023 10:49 PM CDT 1 drop levothyroxine (Synthroid) tablet 75 mcg 75 mcg, Oral, DAILY AT 0600, First dose on Fri11/03/23 at 0645, Until Discontinued, Take in the morning on an empty stomach. Do not give within 4 hours of antacids, iron or calcium supplements. $ Given 11/08/2023 6:03 AM CDT 75 mcg $ Given 11/07/2023 6:42 AM CDT 75 mcg $ Given 11/06/2023 6:29 AM CDT 75 mcg lidocaine (Lidoderm) 5 % patch 2 patch 2 patch, Administer over 12 Hours, EVERY 24 HOURS, First dose on Fri11/02/23 at 0215, Until Discontinued, Apply to left chest and remove patch after a max of 12 hours of application within a 24 hour period. $ Applied 11/03/2023 2:41 AM CDT 2 patches Back $ Applied 11/02/2023 6:35 AM CDT 2 patches Le ft Chest losartan (Cozaar) tablet 100 mg 100 mg, Oral, DAILY, First dose on Fri11/02/23 at 1700, Until Discontinued $ Given 11/08/2023 7:52 AM CDT 100 mg $ Given 11/07/2023 8:44 AM CDT 100 mg $ Given 11/06/2023 9:31 AM CDT 100 mg melatonin tablet 3 mg 3 mg, Oral, AT BEDTIME, First dose on Fri11/03/23 at 2100, Until Discontinued $ Given 11/07/2023 9:55 PM CDT 3 mg $ Given 11/06/2023 9:42 PM CDT 3 mg $ Given 11/05/2023 10:48 PM CDT 3 mg metoprolol succinate XL 24hr (Toprol XL) tablet 100 mg 100 mg, Oral, DAILY, First dose on Fri11/02/23 at 0900, Until Discontinued, May cut in half but do not crush or chew $ Given 11/08/2023 10:02 AM CDT 100 mg $ Given 11/07/2023 8:43 AM CDT 100 mg $ Given 11/06/2023 9:31 AM CDT 100 mg nystatin (Mycostatin) powder Topical, 2 TIMES DAILY, First dose (after last reorder) on Fri11/04/23 at 0215, Until Discontinued, Apply to abdominal folds $ Given 11/08/2023 10:05 AM CDT $ Given 11/07/2023 9:54 PM CDT $ Given 11/07/2023 8:46 AM CDT ondansetron (disintegrating) (Zofran ODT) tablet 4 mg 4 mg, Oral, EVERY 6 HOURS PRN, Nausea/Vomiting, Starting on Fri11/02/23 at 0138, Until 11/08/23 at 1841, Dissolved orally on tongue ondansetron (Zofran) injection 4 mg 4 mg, Intravenous, EVERY 6 HOURS PRN, Nausea/Vomiting, Starting on 11/02/23 at 0138, Until 11/08/23 at 1841, Administer IV if patient is NPO, actively vomiting, or unable to swallow. oxyCODONE (immediate release) (Roxicodone) tablet 2.5 mg 2.5 mg, Oral, EVERY 4 HOURS PRN, Moderate Pain, Starting on 11/04/23 at 0109, Until 11/08/23 at 1841, Patient preference for lesser PRN pain meds may be honored when the patient requests a less strong medication, a lower dose, or a less intrusive route of administration when the lesser drug, dose and route have been ordered for the patient. This patient request must be documented in the MAR. If both oral and IV options are ordered for the same pain severity, give oral first unless patient cannot tolerate oral intake oxyCODONE (immediate release) (Roxicodone) tablet 5 mg 5 mg, Oral, Once, 1 dose, On 11/01/23 at 2215, Patient preference for lesser PRN pain meds may be honored when the patient requests a less strong medication, a lower dose, or a less intrusive route of administration when the lesser drug, dose and route have been ordered for the patient. This patient request must be documented in the MAR. If both oral and IV options are ordered for the same pain severity, give oral first unless patient cannot tolerate oral intake $ Given 11/01/2023 10:51 PM CDT 5 mg oxyCODONE (immediate release) (Roxicodone) tablet 5 mg 5 mg, Oral, EVERY 4 HOURS PRN, Moderate Pain, Starting on 11/02/23 at 0138, Until 11/04/23 at 0109, Patient preference for lesser PRN pain meds may be honored when the patient requests a less strong medication, a lower dose, or a less intrusive route of administration when the lesser drug, dose and route have been ordered for the patient. This patient request must be documented in the MAR. If both oral and IV options are ordered for the same pain severity, give oral first unless patient cannot tolerate oral intake $ Given 11/03/2023 10:14 AM CDT 5 mg $ Given 11/02/2023 9:15 PM CDT 5 mg $ Given 11/02/2023 1:55 PM CDT 5 mg oxyCODONE (immediate release) (Roxicodone) tablet 5 mg 5 mg, Oral, EVERY 4 HOURS PRN, Severe Pain, Starting on Tu11/04/23 at 0109, Until 11/08/23 at 1841, Patient preference for lesser PRN pain meds may be honored when the patient requests a less strong medication, a lower dose, or a less intrusive route of administration when the lesser drug, dose and route have been ordered for the patient. This patient request must be documented in the MAR. If both oral and IV options are ordered for the same pain severity, give oral first unless patient cannot tolerate oral intake pantoprazole EC (Protonix) tablet 40 mg 40 mg, Oral, DAILY, First dose on 11/03/23 at 0900, Until Discontinued, Do not crush, chew, or cut in half. $ Given 11/03/2023 8:14 AM CDT 40 mg PARoxetine (Paxil) tablet 20 mg 20 mg, Oral, DAILY, First dose on 11/02/23 at 0900, Until Discontinued $ Given 11/08/2023 10:03 AM CDT 20 mg $ Given 11/07/2023 8:44 AM CDT 20 mg $ Given 11/06/2023 9:32 AM CDT 20 mg polyethylene glycol 3350 (Miralax) packet 17 g 17 g, Oral, DAILY, First dose on 11/02/23 at 0900, Until Discontinued, Mix in 8 ounces of water, juice, soda, coffee or tea prior to administration $ Given 11/08/2023 10:03 AM CDT 17 g $ Given 11/06/2023 9:31 AM CDT 17 g $ Given 11/05/2023 8:58 AM CDT 17 g senna (Senokot) tablet 8.6 mg 8.6 mg, Oral, DAILY, First dose on 11/02/23 at 0900, Until Discontinued $ Given 11/08/2023 10:02 AM CDT 8.6 mg $ Given 11/07/2023 8:44 AM CDT 8.6 mg $ Given 11/06/2023 9:32 AM CDT 8.6 mg vitamin D3 (Cholecalciferol) 25 MCG (1000 UNITS) tablet 2,000 Units 2,000 Units, Oral, DAILY, First dose on Fri11/07/23 at 0900, Until Discontinued, 1000 units = 25 mcg $ Given 11/08/2023 10:03 AM CDT 2,000 Uni ts $ Given 11/07/2023 8:43 AM CDT 2,000 Units zinc gluconate tablet 50 mg 50 mg, Oral, DAILY, First dose on Fri11/07/23 at 0900, Until Discontinued $ Given 11/08/2023 10:09 AM CDT 50 mg $ Given 11/07/2023 8:44 AM CDT 50 mg documented in this encounter Active and Recently Administered Medications Times are shown in CDT. Scheduled Medication Order 11/06/2023 11/07/2023 11/08/2023 0.9% NaCl injection 3 mL(Linked Group 1) 3 mL, Intracatheter, EVERY 8 HOURS, First dose on Fri11/01/23 at 2200, Until Discontinued, Flush peripheral IV catheter with 3 mL of normal saline every 8 hours. 0556 (Canceled Entry - Provider: Gillian Manzo RN)1328 ($ Given - Provider: Melissa Beltran RN)2142 ($ Given - Provider: Gillian Manzo RN) 0627 (Canceled Entry - Provider: Gillian Manzo RN)1429 ($ Given - Provider: Melissa Beltran RN)2158 ($ Given - Provider: Ella Flowers RN) 0603 (Not Administered - Provider: Elal Flowers RN - Reason: Documented on duplicate row)1408 (Not Administered - Provider: Kevin Smith RN - Reason: Loss of Access) 0.9% NaCl injection 3 mL(Linked Group 2) 3 mL, Intracatheter, EVERY 8 HOURS, First dose on Fri11/02/23 at 0600, Until Discontinued, Flush peripheral IV catheter with 3 mL of normal saline every 8 hours. 0556 (Canceled Entry - Provider: Gillian Manzo RN)1327 ($ Given - Provider: Melissa Beltran RN)2142 (Canceled Entry - Provider: Gillian Manzo RN) 0627 (Canceled Entry - Provider: Gillian Manzo RN)1430 ($ Given - Provider: Melissa Beltran RN)2153 ($ Given - Provider: Ella Flowers RN) 0603 ($ Given - Provider: Ella Flowers RN)1408 (Not Administered - Provider: Kevin mSith RN - Reason: Loss of Access) amLODIPine (Norvasc) tablet 5 mg 5 mg, Oral, DAILY, First dose on Fri11/04/23 at 0900, Until Discontinued 0932 ($ Given - Provider: Melissa Beltran RN) 0844 ($ Given - Provider: Melissa Beltran RN) 0751 ($ Given - Provider: Kevin Smith RN) apixaban (Eliquis) tablet 5 mg 5 mg, Oral, 2 TIMES DAILY, First dose on Fri11/04/23 at 0900, Until Discontinued 31 ($ Given - Provider: Melissa Beltran RN)214 ($ Given - Provider: Gillian Manzo RN) 0843 ($ Given - Provider: Melissa Beltran RN)2155 ($ Given - Provider: Ella Flowers RN) 1002 ($ Given - Provider: Kevin Smith RN) ascorbic acid (VITAMIN C) tablet 500 mg 500 mg, Oral, DAILY, First dose on Fri11/07/23 at 0900, Until Discontinued 0842 ($ Given - Provider: Melissa Beltran RN) 1002 ($ Given - Provider: Kevin Smith RN) atorvastatin (Lipitor) tablet 40 mg 40 mg, Oral, DAILY, First dose on Fri11/02/23 at 0900, Until Discontinued 930 ($ Given - Provider: Melissa Beltran RN) 0844 ($ Given - Provider: Melissa Beltran RN) 1002 ($ Given - Provider: Kevin Smith, JOLLY) bacitracin topical ointment Topical, 3 TIMES DAILY, First dose on Fri11/02/23 at 0900, Until Discontinued, Apply to posterior scalp laceration 0932 ($ Given - Provider: Melissa Beltran RN)1327 ($ Given - Provider: Melissa Beltran RN)214 ($ Given - Provider: Gillian Manzo RN) 0846 ($ Given - Provider: Melissa Beltran RN)1426 ($ Given - Provider: Melissa Beltran RN)2157 ($ Given - Provider: Ella Flowers RN) 1003 ($ Given - Provider: Kevin Smith RN)1408 ($ Given - Provider: Kevin Smith RN) famotidine (Pepcid) tablet 20 mg 20 mg, Oral, 2 TIMES DAILY, First dose on Fri11/02/23 at 0230, Until Discontinued 0932 ($ Given - Provider: Melissa Beltran RN)2142 ($ Given - Provider: Gillian Manzo RN) 0844 ($ Given - Provider: Melissa Beltran RN)2155 ($ Given - Provider: Ella Flowers RN) 1002 ($ Given - Provider: Kevin Smith RN) furosemide (Lasix) tablet 40 mg 40 mg, Oral, DAILY, First dose on Mily 11/06/23 at 1245, Until Discontinued 1324 ($ Given - Provider: Melissa Beltran RN) 0844 ($ Given - Provider: Melissa Beltran RN) 1002 ($ Given - Provider: Kevin Smith RN) HYDROcodone-acetaminophe n ([place]) 10-325 MG tablet 1 tablet 1 tablet, Oral, 3 TIMES DAILY, First dose on Fri11/03/23 at 1400, Until Discontinued, Not to exceed 4000 mg of acetaminophen per day from all sources combined Patient preference for lesser PRN pain meds may be honored when the patient requests a less strong medication, a lower dose, or a less intrusive route of administration when the lesser drug, dose and route have been ordered for the patient. This patient request must be documented in the MAR. If both oral and IV options are ordered for the same pain severity, give oral first unless patient cannot tolerate oral intake 0629 ($ Given - Provider: Gillian Manzo RN)1324 ($ Given - Provider: Melissa Beltran RN)2142 ($ Given - Provider: Gillian Manzo RN) 0642 ($ Given - Provider: Gillian Manzo RN)1427 ($ Given - Provider: Melissa Beltran RN)2155 ($ Given - Provider: Ella Flowers RN) 0603 ($ Given - Provider: Ella Flowers RN)1408 ($ Given - Provider: Kevin Smith RN) latanoprost (Xalatan) 0.005 % ophthalmic solution 1 drop 1 drop, Each Eye, AT BEDTIME, First dose (after last modification) on 11/02/23 at 0245, Until Discontinued, Once opened, store at room temperature for up to 6 weeks. 2141 ($ Given - Provider: Gillian Manzo RN) 2156 ($ Given - Provider: Ella Flowers, JOLLY) levothyroxine (Synthroid) tablet 75 mcg 75 mcg, Oral, DAILY AT 0600, First dose on Fri11/03/23 at 0645, Until Discontinued, Take in the morning on an empty stomach. Do not give within 4 hours of antacids, iron or calcium supplements. 0629 ($ Given - Provider: Gillian Manzo RN) 0642 ($ Given - Provider: Gillian Manzo RN) 0603 ($ Given - Provider: Ella Flowers RN) lidocaine (Lidoderm) 5 % patch 2 patch 2 patch, Administer over 12 Hours, EVERY 24 HOURS, First dose on 11/02/23 at 0215, Until Discontinued, Apply to left chest and remove patch after a max of 12 hours of application within a 24 hour period. 0239 (Canceled Entry - Provider: Gillian Manzo RN) 0411 (Canceled Entry - Provider: Gillian Manzo RN) 0605 (Not Administered - Provider: Ella Flowers RN - Reason: Refused-Patient) losartan (Cozaar) tablet 100 mg 100 mg, Oral, DAILY, First dose on 11/02/23 at 1700, Until Discontinued 0931 ($ Given - Provider: Melissa Beltran RN) 0844 ($ Given - Provider: Melissa Beltran RN) 0752 ($ Given - Provider: Kevin Smith RN) melatonin tablet 3 mg 3 mg, Oral, AT BEDTIME, First dose on Fri11/03/23 at 2100, Until Discontinued 2141 ($ Given - Provider: Gillian Manzo RN) 2154 ($ Given - Provider: Ella Flowers RN) metoprolol succinate XL 24hr (Toprol XL) tablet 100 mg 100 mg, Oral, DAILY, First dose on 11/02/23 at 0900, Until Discontinued, May cut in half but do not crush or chew 0931 ($ Given - Provider: Melissa Beltran RN) 0843 ($ Given - Provider: Melissa Beltran RN) 1002 ($ Given - Provider: Kevin Smith, RN) nystatin (Mycostatin) powder Topical, 2 TIMES DAILY, First dose (after last reorder) on Fri11/04/23 at 0215, Until Discontinued, Apply to abdominal folds 0932 ($ Given - Provider: Melissa Beltran RN)2142 ($ Given - Provider: Gillian Manzo RN) 0846 ($ Given - Provider: Melissa Beltran RN)2154 ($ Given - Provider: Ella Flowers RN) 1005 ($ Given - Provider: Kevin Smith, RN) PARoxetine (Paxil) tablet 20 mg 20 mg, Oral, DAILY, First dose on Fri11/02/23 at 0900, Until Discontinued 0932 ($ Given - Provider: Melissa Beltran RN) 0844 ($ Given - Provider: Melissa Beltran RN) 1003 ($ Given - Provider: Kevin Smith, RN) polyethylene glycol 3350 (Miralax) packet 17 g 17 g, Oral, DAILY, First dose on Fri11/02/23 at 0900, Until Discontinued, Mix in 8 ounces of water, juice, soda, coffee or tea prior to administration 0931 ($ Given - Provider: Melissa Beltran RN) 0845 (Not Administered - Provider: Melissa Beltran RN - Reason: Refused-Patient) 1003 ($ Given - Provider: Kevin Smith, RN) senna (Senokot) tablet 8.6 mg 8.6 mg, Oral, DAILY, First dose on Fri11/02/23 at 0900, Until Discontinued 0932 ($ Given - Provider: Melissa Beltran RN) 0844 ($ Given - Provider: Melissa Beltran RN) 1002 ($ Given - Provider: Kevin Smith, RN) vitamin D3 (Cholecalciferol) 25 MCG (1000 UNITS) tablet 2,000 Units 2,000 Units, Oral, DAILY, First dose on Fri11/07/23 at 0900, Until Discontinued, 1000 units = 25 mcg 0843 ($ Given - Provider: eMlissa Beltran RN) 1003 ($ Given - Provider: Kevin Smith, RN) zinc gluconate tablet 50 mg 50 mg, Oral, DAILY, First dose on Fri11/07/23 at 0900, Until Discontinued 0844 ($ Given - Provider: Melissa Beltran, RN) 1009 ($ Given - Provider: Kevin Smith RN) PRN Medication Order 11/06/2023 11/07/2023 11/08/2023 0.9% NaCl injection 1-10 mL(Linked Group 1) 1-10 mL, Intracatheter, PRN, Other, peripheral line flush, Starting on 11/01/23 at 1856, Until 11/08/23 at 184, Flush peripheral IV catheter with 1-10 mL of normal saline before and after medications and prn to clear blood from the line or to verify patency. 0.9% NaCl injection 1-10 mL(Linked Group 2) 1-10 mL, Intracatheter, PRN, Other, peripheral line flush, Starting on 11/02/23 at 0136, Until 11/08/23 at 1841, Flush peripheral IV catheter with 1-10 mL of normal saline before and after medications and prn to clear blood from the line or to verify patency. albuterol-ipratropium (Duo-Neb) nebulizer solution 3 mL 3 mL, Inhalation, EVERY 6 HOURS PRN, Shortness of Breath, Wheezing, Starting on 11/03/23 at 0625, Until 11/08/23 at 1841 ondansetron (disintegrating) (Zofran ODT) tablet 4 mg(Linked Group 3) 4 mg, Oral, EVERY 6 HOURS PRN, Nausea/Vomiting, Starting on 11/02/23 at 0138, Until 11/08/23 at 1841, Dissolved orally on tongue ondansetron (Zofran) injection 4 mg(Linked Group 3) 4 mg, Intravenous, EVERY 6 HOURS PRN, Nausea/Vomiting, Starting on 11/02/23 at 0138, Until 11/08/23 at 1841, Administer IV if patient is NPO, actively vomiting, or unable to swallow. oxyCODONE (immediate release) (Roxicodone) tablet 2.5 mg(Linked Group 4) 2.5 mg, Oral, EVERY 4 HOURS PRN, Moderate Pain, Starting on 11/04/23 at 0109, Until 11/08/23 at 1841, Patient preference for lesser PRN pain meds may be honored when the patient requests a less strong medication, a lower dose, or a less intrusive route of administration when the lesser drug, dose and route have been ordered for the patient. This patient request must be documented in the MAR. If both oral and IV options are ordered for the same pain severity, give oral first unless patient cannot tolerate oral intake oxyCODONE (immediate release) (Roxicodone) tablet 5 mg(Linked Group 4) 5 mg, Oral, EVERY 4 HOURS PRN, Severe Pain, Starting on 11/04/23 at 0109, Until 11/08/23 at 1841, Patient preference for lesser PRN pain meds may be honored when the patient requests a less strong medication, a lower dose, or a less intrusive route of administration when the lesser drug, dose and route have been ordered for the patient. This patient request must be documented in the MAR. If both oral and IV options are ordered for the same pain severity, give oral first unless patient cannot tolerate oral intake Linked Groups Order Group 1: SALINE LOCK, INSERT AND MAINTAIN (COMPLETED) Routine, CONTINUOUS, Starting on 11/01/23 at 1900, Until Specified, New collection, Task Completed: Yes And 0.9% NaCl injection 3 mLJump to med 3 mL, Intracatheter, EVERY 8 HOURS, First dose on 11/01/23 at 2200, Until Discontinued, Flush peripheral IV catheter with 3 mL of normal saline every 8 hours. And 0.9% NaCl injection 1-10 mLJump to med 1-10 mL, Intracatheter, PRN, Other, peripheral line flush, Starting on 11/01/23 at 1856, Until 11/08/23 at 1841, Flush peripheral IV catheter with 1-10 mL of normal saline before and after medications and prn to clear blood from the line or to verify patency. Group 2: SALINE LOCK, INSERT AND MAINTAIN (CANCELED) Routine, CONTINUOUS, Starting on 11/02/23 at 0145, Until Specified, New collection, Task Completed: Yes And 0.9% NaCl injection 3 mLJump to med 3 mL, Intracatheter, EVERY 8 HOURS, First dose on 11/02/23 at 0600, Until Discontinued, Flush peripheral IV catheter with 3 mL of normal saline every 8 hours. And 0.9% NaCl injection 1-10 mLJump to med 1-10 mL, Intracatheter, PRN, Other, peripheral line flush, Starting on 11/02/23 at 0136, Until 11/08/23 at 1841, Flush peripheral IV catheter with 1-10 mL of normal saline before and after medications and prn to clear blood from the line or to verify patency. Group 3: ondansetron (disintegrating) (Zofran ODT) tablet 4 mgJump to med 4 mg, Oral, EVERY 6 HOURS PRN, Nausea/Vomiting, Starting on 11/02/23 at 0138, Until 11/08/23 at 1841, Dissolved orally on tongue Or ondansetron (Zofran) injection 4 mgJump to med 4 mg, Intravenous, EVERY 6 HOURS PRN, Nausea/Vomiting, Starting on 11/02/23 at 0138, Until 11/08/23 at 1841, Administer IV if patient is NPO, actively vomiting, or unable to swallow. Group 4: oxyCODONE (immediate release) (Roxicodone) tablet 2.5 mgJump to med 2.5 mg, Oral, EVERY 4 HOURS PRN, Moderate Pain, Starting on 11/04/23 at 0109, Until 11/08/23 at 1841, Patient preference for lesser PRN pain meds may be honored when the patient requests a less strong medication, a lower dose, or a less intrusive route of administration when the lesser drug, dose and route have been ordered for the patient. This patient request must be documented in the MAR. If both oral and IV options are ordered for the same pain severity, give oral first unless patient cannot tolerate oral intake Or oxyCODONE (immediate release) (Roxicodone) tablet 5 mgJump to med 5 mg, Oral, EVERY 4 HOURS PRN, Severe Pain, Starting on 11/04/23 at 0109, Until 11/08/23 at 1841, Patient preference for lesser PRN pain meds may be honored when the patient requests a less strong medication, a lower dose, or a less intrusive route of administration when the lesser drug, dose and route have been ordered for the patient. This patient request must be documented in the MAR. If both oral and IV options are ordered for the same pain severity, give oral first unless patient cannot tolerate oral intake documented in this encounter Care Teams [facility] Relationship Specialty Start Date End Date Pierre Acuna DO [address] [place] [id number] PCP - General Family Medicine 11/02/23 documented as of this encounter
--- OUTSIDE RECORDS SUMMARY | 2024-06-09 02:22 | XMS_ITS | Encounter Summary ---
Author Organization [facility] Address [address] [place] [address]. [place] [address] [place] [address] Care Team Providers Care Body Rolling Machine Tender Name Role Phone Pierre Florence DO Unavailable [phone] Dariela Wu MD Unavailable Unavailabl e Pierre Florence DO Primary Care Provider [phone] Reason for Visit * Reason Comments Follow Up Encounter Details Date Type Department Care Team (Late st Contact Info) Description 05/21/2023 1:00 PM WEBLOGIC ADMINISTRATOR Office Visit [facility] [place] [id number] Dariela Wu MD Follow Up Social History Tobacco Use Types Packs/Day Years Used Date Smoking Tobacco: Never Smokeless Tobacco: Never Tobacco Cessation:Counseling Given: Not Answered Alcohol Use Standard Drinks/Week Comments Yes 0 (1 standard drink = 0.6 oz pur e alcohol) at weddings Comments Unknown Sex and Gender Information Value Date Recorded Sex Assigned at Not on file Legal Sex Female 5:57 PM WEBLOGIC ADMINISTRATOR Gender Identity Not on file Sexual Orientation Not on file documented as of this encounter Last Filed Vital Signs Vital Sign Reading Time Taken Comments Blood Pressure 147/44 05/21/2023 1:00 PM WEBLOGIC ADMINISTRATOR Pulse 70 05/21/2023 1:00 PM WEBLOGIC ADMINISTRATOR Temperature - - Respiratory Rate - - Oxygen Saturation 98% 05/21/2023 1:00 PM WEBLOGIC ADMINISTRATOR Inhaled Oxygen Concentration - - Weight 121 kg (266 lb 12.8 oz) 05/21/2023 1:00 P M WEBLOGIC ADMINISTRATOR Height 160 cm (5' 3 ) 05/21/2023 1:00 PM WEBLOGIC ADMINISTRATOR Body Mass Index 47.26 05/21/2023 1:00 PM WEBLOGIC ADMINISTRATOR documented in this encounter Patient Instructions * Patient Instructions* Sallie Lugo RN - 05/21/2023 1:00 PM WEBLOGIC ADMINISTRATOR INCREASE: Furosemide (lasix) 40 mg- take 1 tablet daily in the am Wear support stockings- (please call our office if needing an order) during the day, may remove at bedtime. OGIC ADMINISTRATOR documented in this encounter Progress Notes * Dariela Wu MD - 05/21/2023 1:00 PM CST Reason for Visit: Follow Up History of Present Illness: Recommendations and Plan: Medications: Current Outpatient Medications: ??? aspirin EC (ECOTRIN) 81 MG tablet, Take 1 tablet (81 mg total) by mouth daily., Disp: , Rfl: ??? atorvastatin (LIPITOR) 40 MG tablet, , Disp: , Rfl: ??? Calcium Carb-Cholecalciferol 600-100 MG-UNIT Cap, Take 1 tablet by mouth daily., Disp: , Rfl: ??? Cetirizine HCl (ZYRTEC ALLERGY) 10 MG Cap, Take 10 mg by mouth daily., Disp: , Rfl: ??? ELIQUIS 5 MG tablet, Take 1 tablet (5 mg total) by mouth 2 (two) times daily., Disp: , Rfl: ??? famotidine (PEPCID) 20 MG tablet, Take 1 tablet (20 mg total) by mouth 2 (two) times a day., Disp: , Rfl: ??? fish oil (OMEGA-3 FATTY ACID) 1000 MG Cap capsule, Take 1 capsule (1,000 mg total) by mouth 2 (two) times daily., Disp: , Rfl: ??? fluticasone propionate (FLONASE) 50 MCG/ACT nasal spray, , Disp: , Rfl: ??? furosemide (LASIX) 40 MG tablet, Take 1 tablet (40 mg total) by mouth daily., Disp: 30 tablet, Rfl: 11 ??? HYDROcodone-acetaminophen 10-325 MG tablet, Take 1 tablet by mouth every 8 (eight) hours as needed., Disp: , Rfl: ??? levothyroxine 75 MCG tablet, Take 1 tablet (75 mcg total) by mouth every morning., Disp: , Rfl: ??? LUMIGAN 0.01 % Solution, Place 1 drop into both eyes nightly at bedtime., Disp: , Rfl: ??? metoprolol succinate ER (TOPROL-XL) 100 MG 24 hr tablet, Take 1 tablet (100 mg total) by mouth daily., Disp: , Rfl: ??? Multiple Vitamins-Minerals (MULTIVITAMIN ADULTS OR), Take 1 tablet by mouth daily., Disp: , Rfl: ??? pantoprazole EC (PROTONIX) 40 MG tablet, Take 1 tablet (40 mg total) by mouth daily., Disp: , Rfl: ??? PARoxetine 20 MG tablet, Take 1 tablet (20 mg total) by mouth every morning., Disp: , Rfl: ??? potassium chloride CR (K-TAB) 10 MEQ Tab CR tablet, Take 1 tablet (10 mEq total) by mouth daily., Disp: , Rfl: ??? solifenacin 5 MG tablet, Take 1 tablet (5 mg total) by mouth daily., Disp: , Rfl: ??? vitamin B-12 (CYANOCOBALAMIN) 500 MCG tablet, Place 500 Int'l Units under the tongue daily., Disp: , Rfl: ??? vitamin E 100 UNIT capsule, Take 1 capsule (100 Units total) by mouth daily., Disp: , Rfl: ??? irbesartan (AVAPRO) 150 MG tablet, TAKE ONE TABLET BY MOUTH IN THE MORNING, Disp: 90 tablet, Rfl: 3 ??? ketoconazole (NIZORAL) 2 % cream, , Disp: , Rfl: Allergies Allergen Reactions ??? Cristian Inhibitors Other (see comment) Cough ??? Clarithromycin Unknown ??? Ezetimibe Unknown ??? Statins Unknown Past Medical History: Diagnosis Date ??? Arthritis ??? DVT (deep venous thrombosis) (HHS/HCC) (CMS/HCC) ??? Esophageal stricture ??? Gall stones ??? GERD (gastroesophageal reflux disease) ??? Hypertension ??? Post-menopausal bleeding ??? Pulmonary embolism (CMS/HCC) Past Surgical History: Procedure Laterality Date ??? APPENDECTOMY ??? BACK SURGERY ??? BREAST SURGERY ??? ENDOSCOPY ??? HYSTERECTOMY ??? REMOVAL GALLBLADDER ??? REPLACEMENT TOTAL KNEE Bilateral ??? TONSILLECTOMY Social History Tobacco Use ??? Smoking status: Never ??? Smokeless tobacco: Never Substance Use Topics ??? Alcohol use: Yes Comment: at weddings ??? Drug use: Never Family History Problem Relation Name Age of Onset ??? Diabetes Sister ??? Cancer Mother ??? Stroke Father Family Status Relation Name Status ??? Sister (Not Specified) ??? Mother (Not Specified) ??? Father (Not Specified) Review of Systems Constitutional: Positive for diaphoresis. Negative for recent unintentional weight gain, recent unintentional weight loss and new or significant fatigue. HENT: Positive for hearing loss. Eyes: Negative for blurred vision [...] and new or significant memory loss. Vitals: 05/21/23 1300 BP: (!) 147/44 BP Location: Right arm Pulse: 70 Weight: 121 kg (266 lb 12.8 oz) Height: 1.6 m (5' 3 ) Body mass index is 47.26 kg/m??. Cardiac Exam Rate/Rhythm: Normal rate and regular rhythm. PMI: PMI is not displaced. Pulses: Normal pulses. Femoral pulses are 2+ on the right side and 2+ on the left side. Heart Sounds: Normal heart sounds. Normal S1 sounds. Normal S2 sounds. No gallop present. No S3. NoS4. Murmurs: Physical Exam Constitutional: No distress. Healthy Appearance. Obese. HENT: Oropharynx clear. Eyes: Pupils equal, round, and reactive to light. Conjunctivae normal. Neck: Neck supple. No JVD. Abdomen: Abdomen soft. Bowel sounds normal. No tenderness. No mass. No hepatomegaly. No splenomegaly. Abdominal aorta not palpably enlarged. No abdominal bruit present. Pulmonary: Effort normal. Breath sounds normal. Skin: No rash. No cyanosis. No clubbing. No xanthoma. Musculoskeletal: No kyphosis. Normal ROM. Cane; uses wheelchair secondary to nerve problem in back. Neurological: Alert. Oriented x 3. Appropriate mood and affect. Normal motor skills. Normal gait. Comments: Bilateral LE edema The documentation for the above exam was created using a template entered by ancillary staff however the physical exam was completed entirely by the provider responsible for this visit. The physical exam documentation was reviewed and modified by the provider to reflect his/her findings. Diagnoses/Impression: 1. Pedal edema 2. History of DVT (deep vein thrombosis) 3. Pulmonary embolism, other, unspecified chronicity, unspecified whether acute cor pulmonale present ([facility]/HCC) ([facility]) 4. Primary hypertension 5. Other hyperlipidemia Referring Provider: No ref. provider found PCP: PIERRE FLORENCE DO OGIC ADMINISTRATOR * Dariela Wu MD - 05/21/2023 1:00 PM CST Patient Name: PROMISE FIERRO Date of : 1940 Account: [id number] Facility: [facility] Location: [facility] Date of Service: 05/21/2023 Visit HISTORY OF PRESENT ILLNESS: Mrs. Fierro is seen in the cardiology clinic today for a scheduled followup visit. She is an 82-year-old woman with a history of hypertension, hyperlipidemia, venous insufficiency, DVT/PE and GERD. She reports that she is doing well from a cardiac standpoint. Mrs. Fierro denies any anginal chest pain or shortness of breath. She has had no overt symptoms of congestive heart failure such as paroxysmal nocturnal dyspnea or orthopnea. She does admit to using 2 pillows due to her GERD. She has noted some pedal edema, however. She denies any syncope or palpitations. She has not been walking much due to a pinched nerve in her back. She has had no bleeding complications related to her Eliquis anticoagulation. She does admit to having had a mini stroke last year. Mrs. Fierro does relate that her pedal edema is reduced from previously. It does help when she raises my legs. She has been able to cut back on her diuretic regimen. A review of the records shows that an echocardiogram was performed on 11/26/19 and suggested a leftventricular ejection fraction of 55% to 60%. There was mild concentric left ventricular hypertrophy. The right ventricular systolic pressure was estimated to be 41 mmHg, suggesting an element of mildpulmonary hypertension. No hemodynamically significant valvular abnormalities were identified. RECOMMENDATIONS AND PLAN: Mrs. Fierro'abhay cardiac status appears clinically stable at the present time without ongoing anginal chest pain, overt symptoms of congestive heart failure, or clinical evidence of hemodynamically significant arrhythmias. She continues to have ongoing pedal edema which has actually improved from previously. Her overall activity level has diminished due to her pinched nerve in the back. Continued medical therapy and cardiac risk factor modification seem most appropriateat the present time. After a long discussion in the clinic, I have recommended the following to Mrs. Fierro: 1. I recommended the use of compression stockings on her lower extremities to help control the pedal edema. I also suggested that she increase her Lasix dosing to 40 mg p.o. q.a.m. in an effort to more aggressively treat the pedal edema. 2. I have instructed Mrs. Fierro to continue treatment of her hyperlipidemia. She was unclear as towhich statin agent she was taking, but it appears that it was Atorvastatin 40 mg p.o. at bedtime. Iwill defer management of her lipid status to Dr. Florence's expertise. 3. Return to the cardiology clinic for routine followup in 1 year. I have encouraged Mrs. Fierro tocontact me in the meantime should she have any questions or problems. Signature/Date: DARIELA WU #[id number] /DARREL OGIC ADMINISTRATOR documented in this encounter Plan of Treatment Not on file documented as of this encounter Visit Diagnoses Diagnosis Pedal edema- Primary Edema History of DVT (deep vein thrombosis) Personal history of venous thrombosis and embolism Pulmonary embolism, other, unspecified chronicity, unspecified whether acute cor pulmonale present ([facility]) Primary hypertension Unspecified essential hypertension Other hyperlipidemia documented in this encounter Care Teams Body Rolling Machine Tender Relationship Specialty Start Date End Date Pierre Florence DO [address] [place] [address] PCP - General FAMILY PRACTICE 01/03/20 Pierre Florence DO [address] [place] [address] FAMILY PRACTICE 12/03/19 Dariela Wu MD [address] [place] [address] Consulting Physician CARDIOVASCULAR DISEASE 12/03/19 documented as of this encounter
--- OUTSIDE RECORDS SUMMARY | 2024-06-09 02:22 | XMS_ITS | Encounter Summary ---
Author Organization [facility] Address [address] [place] [address]. [place] [address] [place] [address] Care Team Providers Care Meteorological Observer Name Role Phone Tomer Linn MD Primary Care Provider [phone] Pierre Acuna DO Unavailable [phone] Dick Wu MD Unavailable Unavailabl e Reason for Visit * Reason Onset Date Comments Appointment Request 12/03/2019 Encounter Details Date Type Department Care Team (Late st Contact Info) Description 12/03/2019 Telephone [email or web address] [employer] [employer] [address] [place] [address] Dick Wu MD Appointment Request Social History Tobacco Use Types Packs/Day Years Used Date Smoking Tobacco: Never Assessed Comments Unknown Sex and Gender Information Value Date Recorded Sex Assigned at Not on file Legal Sex Female 5:57 PM FLAME CHANNELER Gender Identity Not on file Sexual Orientation Not on file documented as of this encounter Progress Notes * Liz Navarro RN - 12/03/2019 3:37 PM CDT self referral for leg swelling[facility]/letter mailed request Dr Wu [place] received call pt's son on the line [place], wanting to schedule an apt with Dr Wu Apt made for pt to see Dr Wu on January 02 at 1:30 in [place] Letter mailed [place] called PCP for last office note and labs, echo report in [facility] documented in this encounter Plan of Treatment Not on file documented as of this encounter Visit Diagnoses Not on filedocumented in this encounter Care Teams Meteorological Observer Relationship Specialty Start Date End Date Tomer Linn MD [address] [place] [address] PCP - General FAMILY PRACTICE 12/03/19 01/02/20 Pierre Acuna DO [address] [place] [address] FAMILY PRACTICE 12/03/19 Dick Wu MD [address] [place] [address] Consulting Physician CARDIOVASCULAR DISEASE 12/03/19 documented as of this encounter
--- OUTSIDE RECORDS SUMMARY | 2024-06-09 02:22 | XMS_ITS | Encounter Summary ---
Author Organization [facility] Address [address] [place] [address]. [place] [address] [place] [address] Care Team Providers Care Assembler Chassis Name Role Phone Kalpana Pierre DO Unavailable Dareila Wu MD Unavailable Unavailabl e Pierre Acuna DO Primary Care Provider [phone] Encounter Details Date Type Department Care Team (Late st Contact Info) Description 12/31/2021 Orders Only [facility] [address] [place] [address] Dariela Wu MD Social History Tobacco Use Types Packs/Day Years Used Date Smoking Tobacco: Never Smokeless Tobacco: Never Comments Unknown Sex and Gender Information Value Date Recorded Sex Assigned at Not on file Legal Sex Female 5:57 PM [facility] Gender Identity Not on file Sexual Orientation Not on file documented as of this encounter Plan of Treatment Not on file documented as of this encounter Results * ELECTROCARDIOGRAM (02/28/2022 11:22 AM CDT) 02/28/2022 11:2 2 AM CDT Narrative [facility] - 02/28/2022 3:31 PM CDT ? [facility] ?[address] [place], [place] ??[address] ? Test Date: ?2022-02-28 Pat Name: ? PROMISE FIERRO ? Department: ?? 105 ? Room: ? Gender: ? Female ? Slate Cutter Operator: ?? ajm : ?1940 ? Requested By: DARIELA WU Order Number: [id number] ?Reading MD: ?? Dariela Wu ? Measurements Intervals ?[place] ? Rate: ? 67 ? P: ? VA: ? 0 ?QRS: ?25 QRSD: ? 86 ? T: ?10 QT: ? 397 ? QTc: ?421 ? Interpretive Statements ATRIAL FIBRILLATION ABNORMAL RHYTHM ECG Procedure Note Dariela Wu MD - 02/28/2022 [facility], [facility] [address] [place] [address] Test Date: 2022-02-28 Pat Name: PROMISE FIERRO Department: 105 Room: Gender: Female Slate Cutter Operator: ervin : 1940 Requested By: DARIELA WU Order Number: [id number] Reading MD: Dariela Wu Measurements Intervals [place] Rate: 67 P: VA: 0 QRS: 25 QRSD: 86 T: 10 QT: 397 QTc: 421 Interpretive Statements ATRIAL FIBRILLATION ABNORMAL RHYTHM ECG us Dariela Wu MD PROCEDURES-ORDERABLE NO CARMEN RGE Final Result [facility] documented in this encounter Visit Diagnoses Diagnosis Essential hypertension- Primary Unspecified essential hypertension Localized edema- Primary Edema Essential hypertension Unspecified essential hypertension History of DVT (deep vein thrombosis) Personal history of venous thrombosis and embolism Hyperlipidemia, unspecified hyperlipidemia type documented in this encounter Care Teams Assembler Chassis Relationship Specialty Start Date End Date Pierre Acuna DO [address] [place] [address] PCP - General FAMILY PRACTICE 01/03/20 Pierre Acuna DO [address] [place] [address] FAMILY PRACTICE 12/03/19 Dariela Wu MD [address] [place] [address] Consulting Physician CARDIOVASCULAR DISEASE 12/03/19 documented as of this encounter
--- OUTSIDE RECORDS SUMMARY | 2024-06-09 02:22 | XMS_ITS | Encounter Summary ---
Author Organization [facility] Address [facility] [facility] [place] [address] [place] [address] Care Team Providers Care Boat Motor Mechanic Name Role Phone Pierre Acuna DO Unavailable [phone] Dick Wu MD Unavailable Unavailabl e Pierre Acuna DO Primary Care Provider [phone] Encounter Details Date Type Department Care Team (Latest Contact Info) Description 01/03/2020 Travel Social History Tobacco Use Types Packs/Day Years Used Date Smoking Tobacco: Never Comments Unknown Sex and Gender Information Value Date Recorded Sex Assigned at Not on file Legal Sex Female 5:57 PM PROJECT DEVELOPMENT LEADER Gender Identity Not on file Sexual Orientation [...] on filedocumented in this encounter Care Teams Boat Motor Mechanic Relationship Specialty Start Date End Date Pierre Acuna DO [address] [place] [address] PCP - General FAMILY PRACTICE 01/03/20 Pierre Acuna DO [address] [place] [address] FAMILY PRACTICE 12/03/19 Dick Wu MD [address] [place] [address] Consulting Physician CARDIOVASCULAR DISEASE 12/03/19 documented as of this encounter
--- OUTSIDE RECORDS SUMMARY | 2024-06-09 02:22 | XMS_ITS | Encounter Summary ---
Author Organization [facility] Address [address] [facility] [place] [address] Care Team Providers Care Card Grader Name Role Phone Pierre Acuna DO Primary Care Provider [phone] Encounter Details Date Type Department Care Team (Late st Contact Info) Description 11/05/2023 Orders Only [facility] [address] [place] [phone] Lenore Abbasi, DO [address] [place] [address]?? [place] [address] Social History Tobacco Use Types Packs/Day Years [...] and heating? Not hard at all 11/03/2023 [facility] [place] of Occupat ional Health - Occupational Stress [...] place to sleep or slept in a longterm (including now)? No 11/03/2023 Sex and Gender [...] on filedocumented in this encounter Care Teams Card Grader Relationship Specialty Start Date End Date Pierre Acuna DO [address] [place] [address] PCP - General Family Medicine 11/02/23 documented as of this encounter
--- OUTSIDE RECORDS SUMMARY | 2024-06-09 02:22 | XMS_ITS | Encounter Summary ---
Author Organization [facility] Address [address] [place] [address]. [place] [address] [place] [address] Care Team Providers Care Fire Equipment Inspector Name Role Phone Pierre Acuna DO Unavailable [phone] Dick Wu MD Unavailable Unavailabl e Pierre Acuna DO Primary Care Provider [phone] Reason for Visit * Reason Onset Date Comments Reschedule 03/06/2023 Encounter Details Date Type Department Care Team (Late st Contact Info) Description 03/06/2023 Telephone [facility] [address] [place] [phone] Dick Wu MD Reschedule Social History Tobacco Use Types Packs/Day Years Used Date Smoking Tobacco: Never Smokeless Tobacco: Never Comments Unknown Sex and Gender Information Value Date Recorded Sex Assigned at Not on file Legal Sex Female 5:57 PM RESEARCH METHODS INSTRUCTOR Gender Identity Not on file Sexual Orientation Not on file documented as of this encounter Progress Notes * Sallie Lugo RN - 03/10/2023 11:28 AM CDT F/u appointment scheduled for 08/27/23 at [address] [place] [address] Wu. Phoned patient, no answer, message left with date/time Appointment reminder letter mailed to patient. * Becca Gray - 03/06/2023 8:11 AM CDT The pt is calling to reschedule her appt today. When she woke up this morning it is hard for her towalk this morning because of her pinched nerve in her back. I have canceled [facility] pleasecall back to reschedule I tried to reschedule but couldn't find an appt soon. documented in this encounter Plan of Treatment Not on file documented as of this encounter Visit Diagnoses Not on filedocumented in this encounter Care Teams Fire Equipment Inspector Relationship Specialty Start Date End Date Pierre Acuna DO [address] [place] [address] PCP - General FAMILY PRACTICE 01/03/20 Pierre Acuna DO [address] [place] [address] FAMILY PRACTICE 12/03/19 Dick Wu MD [address] [place] [address] Consulting Physician CARDIOVASCULAR DISEASE 12/03/19 documented as of this encounter
--- OUTSIDE RECORDS SUMMARY | 2024-06-09 02:22 | XMS_ITS | Referral Summary ---
Author Organization [facility] Address [address] [place] [address] Care Team Providers Care Translation Director Name Role Phone Pierre Acuna Primary Care Provider [phone] Source Comments [facility],non-owned Affiliates and Associated Physician Practices is amultiple site organization consisting of ambulatory clinics and hospital sitesin [place], [place], [place] and [place]. This disclosure is being madepursuant to the Care Everywhere program and may not contain all information available regarding this patient. Last updated 18.[facility] Allergies Active Allergy Reactions Criticality Noted Date [...] by mouth once daily Active HYDROcodone-acetami nophen ([place]) 10-325 MG tabletIndications:C losed fracture of multiple [...] 12 patch 11/05/2023 11/04/2024 Active nystatin (Mycostatin) 188122 UNIT/GM powder APPLY TO AFFECTED AREA 2 [...] Administration Dates Next Due TDAP (7yrs+) 11/01/2023 Social History Tobacco Use Types Packs/Day Years [...] and heating? Not hard at all 11/03/2023 [facility] [place] of Occupat ional Health - Occupational Stress [...] place to sleep or slept in a snf (including now)? No 11/03/2023 Sex and Gender [...] Mass Index 48.25 01/12/2024 10:33 AM CDT Functional Status Functional Status Response Date of [...] person have difficulty concentrating/remembering/making decisions? No 11/03/2023 Plan of Treatment Not on file Advance Directives * Full Code (Latest Code Status on File) Date Activated Date Inactivated Comments 11/02/2023 1:41 AM 11/08/2023 6:46 PM Care Teams Translation Director Relationship Specialty Start Date End Date Pierre Acuna DO [address] [place] [address] PCP - General Family Medicine 11/02/23
--- OUTSIDE RECORDS SUMMARY | 2024-06-09 02:23 | XMS_ITS | Encounter Summary ---
Author Organization [facility] Address [address] [place] [address]. [place] [address] [place] [address] Care Team Providers Care Caving Guide Name Role Phone Unavailable Primary Care Provider Unavailabl e Encounter Details Date Type Department Care Team (Late st Contact Info) Description 09/28/2002 Abstract [facility] CONVERSION [address] [place] [address] , Generic Conversion, Social History Tobacco Use Types Packs/Day Years Used Date Smoking Tobacco: Never Assessed Comments Unknown Sex and Gender Information Value Date Recorded Sex Assigned at Not on file Legal Sex Female 5:57 PM FAMILY RESOURCE COORDINATOR Gender Identity Not on file Sexual Orientation Not on file documented as of this encounter Plan of Treatment Not on file documented as of this encounter Visit Diagnoses Not on filedocumented in this encounter
--- OUTSIDE RECORDS SUMMARY | 2024-06-09 02:23 | XMS_ITS | Encounter Summary ---
Author Organization [facility] Address [address] [place] [address]. [place] [address] [place] [address] Care Team Providers Care Human Factors Scientist Name Role Phone Unavailable Primary Care Provider Unavailabl e Encounter Details Date Type Department Care Team (Late st Contact Info) Description 10/19/2002 Abstract [facility] [address] [place] [address] , Generic Conversion, Social History Tobacco Use Types Packs/Day Years Used Date Smoking Tobacco: Never Assessed Comments Unknown Sex and Gender Information Value Date Recorded Sex Assigned at Not on file Legal Sex Female 5:57 PM JAVA SOFTWARE ARCHITECT Gender Identity Not on file Sexual Orientation Not on file documented as of this encounter Plan of Treatment Not on file documented as of this encounter Visit Diagnoses Not on filedocumented in this encounter
--- OUTSIDE RECORDS SUMMARY | 2024-06-09 02:23 | XMS_ITS | Encounter Summary ---
Author Organization [facility] Address [address] [place] [address]. [place] [address] [place] [address] Care Team Providers Care Lead Generator Name Role Phone Unavailable Primary Care Provider Unavailabl e Encounter Details Date Type Department Care Team (Late st Contact Info) Description 10/23/1999 Abstract [facility] [address] [place] [address] , Generic Conversion, Social History Tobacco Use Types Packs/Day Years Used Date Smoking Tobacco: Never Assessed Comments Unknown Sex and Gender Information Value Date Recorded Sex Assigned at Not on file Legal Sex Female 5:57 PM PAPER CUP HANDLE MACHINE OPERATOR Gender Identity Not on file Sexual Orientation Not on file documented as of this encounter Plan of Treatment Not on file documented as of this encounter Visit Diagnoses Not on filedocumented in this encounter
--- OUTSIDE RECORDS SUMMARY | 2024-06-09 02:23 | XMS_ITS | Encounter Summary ---
Author Organization [facility] Address [address] [place] [address]. [place] [address] [place] [address] Care Team Providers Care On Call Pharmacy Technician Name Role Phone Unavailable Primary Care Provider Unavailabl e Encounter Details Date Type Department Care Team (Late st Contact Info) Description 02/15/2002 Abstract [facility] [address] [place] [address] , Generic Conversion, Social History Tobacco Use Types Packs/Day Years Used Date Smoking Tobacco: Never Assessed Comments Unknown Sex and Gender Information Value Date Recorded Sex Assigned at Not on file Legal Sex Female 5:57 PM EDGER AUTOMATIC Gender Identity Not on file Sexual Orientation Not on file documented as of this encounter Plan of Treatment Not on file documented as of this encounter Visit Diagnoses Not on filedocumented in this encounter
--- OUTSIDE RECORDS SUMMARY | 2024-06-09 02:23 | XMS_ITS | Encounter Summary ---
Author Organization [facility] Address [address] [place] [address]. [place] [address] [place] [address] Care Team Providers Care Automation Controls Expert Name Role Phone Unavailable Primary Care Provider Unavailabl e Encounter Details Date Type Department Care Team (Late st Contact Info) Description 08/29/2004 Abstract [facility] [address] [facility] [place] [address] Keith Lopez MD Social History Tobacco Use Types Packs/Day Years Used Date Smoking Tobacco: Never Assessed Comments Unknown Sex and Gender Information Value Date Recorded Sex Assigned at Not on file Legal Sex Female 5:57 PM COMPUTER SYSTEM SPECIALIST Gender Identity Not on file Sexual Orientation Not on file documented as of this encounter Plan of Treatment Not on file documented as of this encounter Visit Diagnoses Not on filedocumented in this encounter
--- OUTSIDE RECORDS SUMMARY | 2024-06-09 02:23 | XMS_ITS | Encounter Summary ---
Author Organization [facility] Address [address] [place] [address]. [place] [address] [place] [address] Care Team Providers Care Emissions Testing Technician Name Role Phone Unavailable Primary Care Provider Unavailabl e Encounter Details Date Type Department Care Team (Late st Contact Info) Description 11/11/2000 Abstract [facility] [address] [place] [address] , Generic Conversion, Social History Tobacco Use Types Packs/Day Years Used Date Smoking Tobacco: Never Assessed Comments Unknown Sex and Gender Information Value Date Recorded Sex Assigned at Not on file Legal Sex Female 5:57 PM ICT HELP DESK OFFICER Gender Identity Not on file Sexual Orientation Not on file documented as of this encounter Plan of Treatment Not on file documented as of this encounter Visit Diagnoses Not on filedocumented in this encounter
--- OUTSIDE RECORDS SUMMARY | 2024-06-09 02:23 | XMS_ITS | Encounter Summary ---
Author Organization [facility] Address [address] [place] [address]. [place] [address] [place] [address] Care Team Providers Care Ice Rink Attendant Name Role Phone Unavailable Primary Care Provider Unavailabl e Encounter Details Date Type Department Care Team (Late st Contact Info) Description 08/19/2006 Abstract [facility] [address] [place] [address] Keith Lopez MD Social History Tobacco Use Types Packs/Day Years Used Date Smoking Tobacco: Never Assessed Comments Unknown Sex and Gender Information Value Date Recorded Sex Assigned at Not on file Legal Sex Female 5:57 PM SLIME PLANT OPERATOR Gender Identity Not on file Sexual Orientation Not on file documented as of this encounter Plan of Treatment Not on file documented as of this encounter Visit Diagnoses Not on filedocumented in this encounter
--- OUTSIDE RECORDS SUMMARY | 2024-06-09 02:23 | XMS_ITS | Encounter Summary ---
Author Organization [facility] Address [address] [place] [address]. [place] [address] [place] [address] Care Team Providers Care Repairer Auto Clocks Name Role Phone Unavailable Primary Care Provider Unavailabl e Encounter Details Date Type Department Care Team (Late st Contact Info) Description 05/28/[address] [facility] [address] [facility] [place] [address] Keith Lopez MD Social History Tobacco Use Types Packs/Day Years Used Date Smoking Tobacco: Never Assessed Comments Unknown Sex and Gender Information Value Date Recorded Sex Assigned at Not on file Legal Sex Female 5:57 PM BRIM GREASER OPERATOR Gender Identity Not on file Sexual Orientation Not on file documented as of this encounter Plan of Treatment Not on file documented as of this encounter Visit Diagnoses Not on filedocumented in this encounter
--- OUTSIDE RECORDS SUMMARY | 2024-06-09 02:23 | XMS_ITS | Encounter Summary ---
Author Organization [facility] Address [address] [place] [address]. [place] [address] [place] [address] Care Team Providers Care Single Needle Operator Name Role Phone Unavailable Primary Care Provider Unavailabl e Encounter Details Date Type Department Care Team (Late st Contact Info) Description 10/12/2002 Abstract [facility] [address] [place] [address] , Generic Conversion, Social History Tobacco Use Types Packs/Day Years Used Date Smoking Tobacco: Never Assessed Comments Unknown Sex and Gender Information Value Date Recorded Sex Assigned at Not on file Legal Sex Female 5:57 PM PLUMBING DESIGNER Gender Identity Not on file Sexual Orientation Not on file documented as of this encounter Plan of Treatment Not on file documented as of this encounter Visit Diagnoses Not on filedocumented in this encounter
--- OUTSIDE RECORDS SUMMARY | 2024-06-09 02:23 | XMS_ITS | Encounter Summary ---
Author Organization [facility] Address [address] [place] [address]. [place] [address] [place] [address] Care Team Providers Care Steward/Stewardess Second Name Role Phone Unavailable Primary Care Provider Unavailabl e Encounter Details Date Type Department Care Team (Late st Contact Info) Description 10/24/[address] [facility] [address] [place] [address] Jay Avalos MD [address] [place] [id number] Social History Tobacco Use Types Packs/Day Years Used Date Smoking Tobacco: Never Assessed Comments Unknown Sex and Gender Information Value Date Recorded Sex Assigned at Not on file Legal Sex Female 5:57 PM OBSTETRICS TECHNICIAN Gender Identity Not on file Sexual Orientation Not on file documented as of this encounter Plan of Treatment Not on file documented as of this encounter Visit Diagnoses Not on filedocumented in this encounter
--- OUTSIDE RECORDS SUMMARY | 2024-06-09 02:23 | XMS_ITS | Encounter Summary ---
Author Organization [facility] Address [address] [place] [address]. [place], [place] [address] [place] [address] Care Team Providers Care Student Recruiter Name Role Phone Tomer Linn MD Primary Care Provider [phone] Pierre Acuna DO Unavailable [phone] Dick Wu MD Unavailable Unavailabl e Reason for Visit * Reason Comments Lab (SCAN) Encounter Details Date Type Department Care Team (Late st Contact Info) Description 11/16/2019 Scan [facility] [address] [place] [address] Scanned, Documents Lab (SCAN) Social History Tobacco Use Types Packs/Day Years Used Date Smoking Tobacco: Never Assessed Comments Unknown Sex and Gender Information Value Date Recorded Sex Assigned at Not on file Legal Sex Female 5:57 PM BILLPOSTER Gender Identity Not on file Sexual Orientation Not on file documented as of this encounter Plan of Treatment Not on file documented as of this encounter Procedures Procedure Name Priority Date/Time Associated Diagnosis Comments OUTSIDE PT/INR (SCAN ORDER) Routine 11/16/2019 OUTSIDE LAB (SCAN ORDER) Routine 11/16/2019 documented in this encounter Results * OUTSIDE PT/INR (11/16/2019) 11/16/2019 us Documents Scanned SCANNING Final Result [facility] * OUTSIDE LAB (11/16/2019) 11/16/2019 us Documents Scanned SCANNING Final Result [facility] documented in this encounter Visit Diagnoses Not on filedocumented in this encounter Care Teams Student Recruiter Relationship Specialty Start Date End Date Tomer Linn MD [address] [place] [address] PCP - General FAMILY PRACTICE 12/03/19 01/02/20 Pierre Acuna DO [address] [place] [address] FAMILY PRACTICE 12/03/19 Dick Wu MD [address] [place] [address] Consulting Physician CARDIOVASCULAR DISEASE 12/03/19 documented as of this encounter
--- OUTSIDE RECORDS SUMMARY | 2024-06-09 02:23 | XMS_ITS | Encounter Summary ---
Author Organization [facility] Address [address] [place] [address]. [place] [address] [place] [address] Care Team Providers Care Blockers Skiver Name Role Phone Unavailable Primary Care Provider Unavailabl e Encounter Details Date Type Department Care Team (Late st Contact Info) Description 10/16/1999 Abstract [facility] [address] [place] [address] , Generic Conversion, Social History Tobacco Use Types Packs/Day Years Used Date Smoking Tobacco: Never Assessed Comments Unknown Sex and Gender Information Value Date Recorded Sex Assigned at Not on file Legal Sex Female 5:57 PM DISABILITY CASE MANAGER Gender Identity Not on file Sexual Orientation Not on file documented as of this encounter Plan of Treatment Not on file documented as of this encounter Visit Diagnoses Not on filedocumented in this encounter
--- OUTSIDE RECORDS SUMMARY | 2024-06-09 02:23 | XMS_ITS | Encounter Summary ---
Author Organization [facility] Address [address] [place] [address]. [place] [address] [place] [address] Care Team Providers Care Radar Technician Name Role Phone Unavailable Primary Care Provider Unavailabl e Encounter Details Date Type Department Care Team (Late st Contact Info) Description 03/18/2006 Abstract [facility] [address] [place] [address] Keith Lopez MD Social History Tobacco Use Types Packs/Day Years Used Date Smoking Tobacco: Never Assessed Comments Unknown Sex and Gender Information Value Date Recorded Sex Assigned at Not on file Legal Sex Female 5:57 PM AUTOMOBILE MECHANIC RADIATOR Gender Identity Not on file Sexual Orientation Not on file documented as of this encounter Plan of Treatment Not on file documented as of this encounter Visit Diagnoses Not on filedocumented in this encounter
--- OUTSIDE RECORDS SUMMARY | 2024-06-09 02:23 | XMS_ITS | Encounter Summary ---
Author Organization [facility] Address [address] [place] [address]. [place] [address] [place] [address] Care Team Providers Care Tank Terminal Gauger Name Role Phone Unavailable Primary Care Provider Unavailabl e Encounter Details Date Type Department Care Team (Late st Contact Info) Description 05/20/2001 Abstract [facility] [address] [place] [address] , Generic Conversion, Social History Tobacco Use Types Packs/Day Years Used Date Smoking Tobacco: Never Assessed Comments Unknown Sex and Gender Information Value Date Recorded Sex Assigned at Not on file Legal Sex Female 5:57 PM JUNIOR NET DEVELOPER Gender Identity Not on file Sexual Orientation Not on file documented as of this encounter Plan of Treatment Not on file documented as of this encounter Visit Diagnoses Not on filedocumented in this encounter
--- OUTSIDE RECORDS SUMMARY | 2024-06-09 02:23 | XMS_ITS | Encounter Summary ---
Author Organization [facility] Address [address] [place] [address]. [place] [address] [place] [address] Care Team Providers Care Account Group Supervisor Name Role Phone Unavailable Primary Care Provider Unavailabl e Encounter Details Date Type Department Care Team (Late st Contact Info) Description 03/17/2007 Abstract [facility] [address] [place] [address] Keith Lopez MD Social History Tobacco Use Types Packs/Day Years Used Date Smoking Tobacco: Never Assessed Comments Unknown Sex and Gender Information Value Date Recorded Sex Assigned at Not on file Legal Sex Female 5:57 PM PERSONNEL TECHNICIAN Gender Identity Not on file Sexual Orientation Not on file documented as of this encounter Plan of Treatment Not on file documented as of this encounter Visit Diagnoses Not on filedocumented in this encounter
--- OUTSIDE RECORDS SUMMARY | 2024-06-09 02:23 | XMS_ITS | Encounter Summary ---
Author Organization [facility] Address [address] [place] [address]. [place] [address] [place] [address] Care Team Providers Care Chief Architect Name Role Phone Unavailable Primary Care Provider Unavailabl e Encounter Details Date Type Department Care Team (Late st Contact Info) Description 10/22/2007 Abstract [facility] [address] [place] [address] Jay Avalos MD [address] [place] [id number] Social History Tobacco Use Types Packs/Day Years Used Date Smoking Tobacco: Never Assessed Comments Unknown Sex and Gender Information Value Date Recorded Sex Assigned at Not on file Legal Sex Female 5:57 PM BREEDER SERVICE TECHNICIAN Gender Identity Not on file Sexual Orientation Not on file documented as of this encounter Plan of Treatment Not on file documented as of this encounter Visit Diagnoses Not on filedocumented in this encounter
--- OUTSIDE RECORDS SUMMARY | 2024-06-09 02:23 | XMS_ITS | Encounter Summary ---
Author Organization [facility] [place] [facility] Address [address] [place] [address]. [place] [address] [place] [address] Care Team Providers Care Concrete Vault Maker Name Role Phone Unavailable Primary Care Provider Unavailabl e Encounter Details Date Type Department Care Team (Late st Contact Info) Description 08/15/2009 Abstract [facility] [address] [place] [address] Keith Lopez MD Social History Tobacco Use Types Packs/Day Years Used Date Smoking Tobacco: Never Assessed Comments Unknown Sex and Gender Information Value Date Recorded Sex Assigned at Not on file Legal Sex Female 5:57 PM COMMUNICATIONS ADVISOR Gender Identity Not on file Sexual Orientation Not on file documented as of this encounter Plan of Treatment Not on file documented as of this encounter Visit Diagnoses Diagnosis Osteoarthrosis Osteoarthrosis, unspecified whether generalized or localized, unspecified site documented in this encounter
--- OUTSIDE RECORDS SUMMARY | 2024-06-09 02:23 | XMS_ITS | Encounter Summary ---
Author Organization [facility] Address [address] [place] [address]. [place] [address] [place] [address] Care Team Providers Care Theatre Arts Professor Name Role Phone Unavailable Primary Care Provider Unavailabl e Encounter Details Date Type Department Care Team (Late st Contact Info) Description 04/18/[address] [facility] [address] [place] [address] , Renate Newberry MD Social History Tobacco Use Types Packs/Day Years Used Date Smoking Tobacco: Never Assessed Comments Unknown Sex and Gender Information Value Date Recorded Sex Assigned at Not on file Legal Sex Female 5:57 PM INVESTMENT DIRECTOR Gender Identity Not on file Sexual Orientation Not on file documented as of this encounter Plan of Treatment Not on file documented as of this encounter Visit Diagnoses Not on filedocumented in this encounter
--- OUTSIDE RECORDS SUMMARY | 2024-06-09 02:23 | XMS_ITS | Encounter Summary ---
Author Organization [facility] Address [address] [place] [address]. [place] [address] [place] [address] Care Team Providers Care City Maintenance Manager Name Role Phone Unavailable Primary Care Provider Unavailabl e Encounter Details Date Type Department Care Team (Late st Contact Info) Description 09/10/2004 Abstract [facility] [address] [place] [address] Keith Lopez MD Social History Tobacco Use Types Packs/Day Years Used Date Smoking Tobacco: Never Assessed Comments Unknown Sex and Gender Information Value Date Recorded Sex Assigned at Not on file Legal Sex Female 5:57 PM CLINICAL ADVISOR Gender Identity Not on file Sexual Orientation Not on file documented as of this encounter Plan of Treatment Not on file documented as of this encounter Visit Diagnoses Not on filedocumented in this encounter
--- OUTSIDE RECORDS SUMMARY | 2024-06-09 02:23 | XMS_ITS | Encounter Summary ---
Author Organization [facility] Address [address] [place] [address]. [place] [address] [place] [address] Care Team Providers Care Triage Registered Nurse Name Role Phone Unavailable Primary Care Provider Unavailabl e Encounter Details Date Type Department Care Team (Late st Contact Info) Description 2003 Abstract [facility] [address] [place] [address] Keith Lopez MD Social History Tobacco Use Types Packs/Day Years Used Date Smoking Tobacco: Never Assessed Comments Unknown Sex and Gender Information Value Date Recorded Sex Assigned at Not on file Legal Sex Female 5:57 PM ASSISTANT SPA DIRECTOR Gender Identity Not on file Sexual Orientation Not on file documented as of this encounter Plan of Treatment Not on file documented as of this encounter Visit Diagnoses Not on filedocumented in this encounter
--- OUTSIDE RECORDS SUMMARY | 2024-06-09 02:23 | XMS_ITS | Encounter Summary ---
Author Organization [facility] Address [address] [place] [address]. [place] [address] [place] [address] Care Team Providers Care Clerk Typist Name Role Phone Unavailable Primary Care Provider Unavailabl e Encounter Details Date Type Department Care Team (Late st Contact Info) Description 04/13/2004 Abstract [facility] [address] [facility] [facility] [place] [address] Keith Lopez MD Social History Tobacco Use Types Packs/Day Years Used Date Smoking Tobacco: Never Assessed Comments Unknown Sex and Gender Information Value Date Recorded Sex Assigned at Not on file Legal Sex Female 5:57 PM ALL AROUND PRESSER Gender Identity Not on file Sexual Orientation Not on file documented as of this encounter Plan of Treatment Not on file documented as of this encounter Visit Diagnoses Not on filedocumented in this encounter
--- OUTSIDE RECORDS SUMMARY | 2024-06-09 02:23 | XMS_ITS | Encounter Summary ---
Author Organization [facility] Address [address] [place] [address]. [place] [address] [place] [address] Care Team Providers Care Vp Packaging Name Role Phone Unavailable Primary Care Provider Unavailabl e Encounter Details Date Type Department Care Team (Late st Contact Info) Description 08/21/2006 Abstract [facility] [address] [place] [address] Keith Lopez MD Social History Tobacco Use Types Packs/Day Years Used Date Smoking Tobacco: Never Assessed Comments Unknown Sex and Gender Information Value Date Recorded Sex Assigned at Not on file Legal Sex Female 5:57 PM MORTISING MACHINE OPERATOR Gender Identity Not on file Sexual Orientation Not on file documented as of this encounter Plan of Treatment Not on file documented as of this encounter Visit Diagnoses Not on filedocumented in this encounter
--- OUTSIDE RECORDS SUMMARY | 2024-06-09 02:23 | XMS_ITS | Encounter Summary ---
Author Organization [facility] Address [address] [place] [address]. [place] [address] [place] [address] Care Team Providers Care Bioanalyst Name Role Phone Unavailable Primary Care Provider Unavailabl e Encounter Details Date Type Department Care Team (Late st Contact Info) Description 02/12/2000 Abstract [facility] [address] [place] [address] , Generic Conversion, Social History Tobacco Use Types Packs/Day Years Used Date Smoking Tobacco: Never Assessed Comments Unknown Sex and Gender Information Value Date Recorded Sex Assigned at Not on file Legal Sex Female 5:57 PM NUCLEAR FUELS RESEARCH ENGINEER Gender Identity Not on file Sexual Orientation Not on file documented as of this encounter Plan of Treatment Not on file documented as of this encounter Visit Diagnoses Not on filedocumented in this encounter
--- OUTSIDE RECORDS SUMMARY | 2024-06-09 02:23 | XMS_ITS | Encounter Summary ---
Author Organization [facility] Address [address] [place] [address]. [place] [address] [place] [address] Care Team Providers Care Non Destructive Evaluation Manager Name Role Phone Unavailable Primary Care Provider Unavailabl e Encounter Details Date Type Department Care Team (Late st Contact Info) Description 05/30/2003 Abstract [facility] [address] [place] [address] , Generic Conversion, Social History Tobacco Use Types Packs/Day Years Used Date Smoking Tobacco: Never Assessed Comments Unknown Sex and Gender Information Value Date Recorded Sex Assigned at Not on file Legal Sex Female 5:57 PM STRUCTURAL DESIGNER Gender Identity Not on file Sexual Orientation Not on file documented as of this encounter Plan of Treatment Not on file documented as of this encounter Visit Diagnoses Not on filedocumented in this encounter
--- OUTSIDE RECORDS SUMMARY | 2024-06-09 02:23 | XMS_ITS | Encounter Summary ---
Author Organization [facility] Address [address] [place] [address]. [place] [address] [place] [address] Care Team Providers Care Drupal Developer Name Role Phone Unavailable Primary Care Provider Unavailabl e Encounter Details Date Type Department Care Team (Late st Contact Info) Description 08/18/2007 Abstract [facility] [address] [place] [address] Keith Lopez MD Social History Tobacco Use Types Packs/Day Years Used Date Smoking Tobacco: Never Assessed Comments Unknown Sex and Gender Information Value Date Recorded Sex Assigned at Not on file Legal Sex Female 5:57 PM SCROLL SAW OPERATOR Gender Identity Not on file Sexual Orientation Not on file documented as of this encounter Plan of Treatment Not on file documented as of this encounter Visit Diagnoses Not on filedocumented in this encounter
--- OUTSIDE RECORDS SUMMARY | 2024-06-09 02:23 | XMS_ITS | Encounter Summary ---
Author Organization [facility] Address [address] [place] [address]. [place] [address] [place] [address] Care Team Providers Care Electrical Test Technician Name Role Phone Unavailable Primary Care Provider Unavailabl e Encounter Details Date Type Department Care Team (Late st Contact Info) Description 01/16/2010 Abstract [facility] [address] [place] [address] Keith Lopez MD Social History Tobacco Use Types Packs/Day Years Used Date Smoking Tobacco: Never Assessed Comments Unknown Sex and Gender Information Value Date Recorded Sex Assigned at Not on file Legal Sex Female 5:57 PM PROSTHETICS LAB TECHNICIAN Gender Identity Not on file Sexual Orientation Not on file documented as of this encounter Plan of Treatment Not on file documented as of this encounter Visit Diagnoses Diagnosis Degeneration of lumbar or lumbosacral intervertebral disc documented in this encounter
--- OUTSIDE RECORDS SUMMARY | 2024-06-09 02:23 | XMS_ITS | Encounter Summary ---
Author Organization [facility] Address [address] [place] [address]. [place] [address] [place] [address] Care Team Providers Care Cannery Tender Engineer Name Role Phone Unavailable Primary Care Provider Unavailabl e Encounter Details Date Type Department Care Team (Late st Contact Info) Description 04/06/2007 Abstract [facility] [address] [place] [address] Keith Lopez MD Social History Tobacco Use Types Packs/Day Years Used Date Smoking Tobacco: Never Assessed Comments Unknown Sex and Gender Information Value Date Recorded Sex Assigned at Not on file Legal Sex Female 5:57 PM BAD WORK GATHERER Gender Identity Not on file Sexual Orientation Not on file documented as of this encounter Plan of Treatment Not on file documented as of this encounter Visit Diagnoses Not on filedocumented in this encounter
--- OUTSIDE RECORDS SUMMARY | 2024-06-09 02:23 | XMS_ITS | Encounter Summary ---
Author Organization [facility] Address [facility]. [place], [place] [address] [place] [address] Care Team Providers Care Principal Bioinformatics Specialist Name Role Phone Unavailable Primary Care Provider Unavailabl e Encounter Details Date Type Department Care Team (Late st Contact Info) Description 11/03/2008 Abstract [facility] [address] [place] [address] Dick Coppola III, MD [address] [place] [address] Social History Tobacco Use Types Packs/Day Years Used Date Smoking Tobacco: Never Assessed Comments Unknown Sex and Gender Information Value Date Recorded Sex Assigned at Not on file Legal Sex Female 5:57 PM BUNDLES HANGER Gender Identity Not on file Sexual Orientation Not on file documented as of this encounter Plan of Treatment Not on file documented as of this encounter Visit Diagnoses Diagnosis Encounter for other physical therapy documented in this encounter
--- OUTSIDE RECORDS SUMMARY | 2024-06-09 02:23 | XMS_ITS | Encounter Summary ---
Author Organization [facility] Address [address] [place] [address]. [place] [address] [place] [address] Care Team Providers Care Transformation Lead Name Role Phone Unavailable Primary Care Provider Unavailabl e Encounter Details Date Type Department Care Team (Late st Contact Info) Description 12/18/2004 Abstract [facility] [address] [place] [address] Keith Lopez MD Social History Tobacco Use Types Packs/Day Years Used Date Smoking Tobacco: Never Assessed Comments Unknown Sex and Gender Information Value Date Recorded Sex Assigned at Not on file Legal Sex Female 5:57 PM CUSTOMER OPERATIONS ASSOCIATE Gender Identity Not on file Sexual Orientation Not on file documented as of this encounter Plan of Treatment Not on file documented as of this encounter Visit Diagnoses Not on filedocumented in this encounter
--- OUTSIDE RECORDS SUMMARY | 2024-06-09 02:23 | XMS_ITS | Encounter Summary ---
Author Organization [facility] Address [address] [place] [address]. [place] [address] [place] [address] Care Team Providers Care Financial Legal Assistant Name Role Phone Unavailable Primary Care Provider Unavailabl e Encounter Details Date Type Department Care Team (Late st Contact Info) Description 08/31/2007 Abstract [facility] [address] [place] [address] Keith Lopez MD Social History Tobacco Use Types Packs/Day Years Used Date Smoking Tobacco: Never Assessed Comments Unknown Sex and Gender Information Value Date Recorded Sex Assigned at Not on file Legal Sex Female 5:57 PM PROFESSOR OF ARCHAEOLOGY Gender Identity Not on file Sexual Orientation Not on file documented as of this encounter Plan of Treatment Not on file documented as of this encounter Visit Diagnoses Not on filedocumented in this encounter
--- OUTSIDE RECORDS SUMMARY | 2024-06-09 02:23 | XMS_ITS | Encounter Summary ---
Author Organization [facility] Address [address] [place] [address]. [place] [address] [place] [address] Care Team Providers Care Director Script Name Role Phone Unavailable Primary Care Provider Unavailabl e Encounter Details Date Type Department Care Team (Late st Contact Info) Description 04/26/2004 Abstract [facility] [address] [place] [address] Keith Lopez MD Social History Tobacco Use Types Packs/Day Years Used Date Smoking Tobacco: Never Assessed Comments Unknown Sex and Gender Information Value Date Recorded Sex Assigned at Not on file Legal Sex Female 5:57 PM CONSTRUCTION PROJECT ADMINISTRATOR Gender Identity Not on file Sexual Orientation Not on file documented as of this encounter Plan of Treatment Not on file documented as of this encounter Visit Diagnoses Not on filedocumented in this encounter
--- OUTSIDE RECORDS SUMMARY | 2024-06-09 02:23 | XMS_ITS | Encounter Summary ---
Author Organization [facility] Address [address] [place] [address]. [place] [address] [place] [address] Care Team Providers Care Geology Professor Name Role Phone Unavailable Primary Care Provider Unavailabl e Encounter Details Date Type Department Care Team (Late st Contact Info) Description 12/07/2002 Abstract [facility] [address] [place] [address] , Generic Conversion, Social History Tobacco Use Types Packs/Day Years Used Date Smoking Tobacco: Never Assessed Comments Unknown Sex and Gender Information Value Date Recorded Sex Assigned at Not on file Legal Sex Female 5:57 PM ENTERPRISE SOLUTIONS ARCHITECT Gender Identity Not on file Sexual Orientation Not on file documented as of this encounter Plan of Treatment Not on file documented as of this encounter Visit Diagnoses Not on filedocumented in this encounter
--- OUTSIDE RECORDS SUMMARY | 2024-06-09 02:23 | XMS_ITS | Encounter Summary ---
Author Organization [facility] Address [address] [place] [address]. [place] [address] [place] [address] Care Team Providers Care Uptwister Tender Name Role Phone Unavailable Primary Care Provider Unavailabl e Encounter Details Date Type Department Care Team (Late st Contact Info) Description 08/14/2004 Abstract [facility] [address] [place] [address] Keith Lopez MD Social History Tobacco Use Types Packs/Day Years Used Date Smoking Tobacco: Never Assessed Comments Unknown Sex and Gender Information Value Date Recorded Sex Assigned at Not on file Legal Sex Female 5:57 PM MAGNETIC LOCATER Gender Identity Not on file Sexual Orientation Not on file documented as of this encounter Plan of Treatment Not on file documented as of this encounter Visit Diagnoses Not on filedocumented in this encounter
--- OUTSIDE RECORDS SUMMARY | 2024-06-09 02:23 | XMS_ITS | Encounter Summary ---
Author Organization [facility] Address [address] [place] [address]. [place] [address] [place] [address] Care Team Providers Care Special Education Case Manager Name Role Phone Unavailable Primary Care Provider Unavailabl e Encounter Details Date Type Department Care Team (Late st Contact Info) Description 04/04/2007 Abstract [facility] [address] [place] [address] Keith Lopez MD Social History Tobacco Use Types Packs/Day Years Used Date Smoking Tobacco: Never Assessed Comments Unknown Sex and Gender Information Value Date Recorded Sex Assigned at Not on file Legal Sex Female 5:57 PM APPLICATION COUNSELOR Gender Identity Not on file Sexual Orientation Not on file documented as of this encounter Plan of Treatment Not on file documented as of this encounter Visit Diagnoses Not on filedocumented in this encounter
--- OUTSIDE RECORDS SUMMARY | 2024-06-09 02:25 | XMS_ITS | Clinical Summary ---
Author Organization [facility] Address [address] [facility] [address] [place] [address] Phone Care Team Providers Care Driller Hand Name Role Phone Provider, Not On File Primary Care Provider Unav ailable Allergies Active Allergy Reactions Criticality Noted Date Comments Cristian Inhibitors Other (see Comments) Cough Clarithromycin Unknown Statins Unknown Ezetimibe Unknown Medications Bimatoprost (LUMIGAN) 0.01 % Solution Place 1 Drop in affected eye(s) nightly. To both eyes Active Cyanocobalamin (VITAMIN B12 PO) 2,500 Int'l Units by Sublingual route daily. Active Calcium Carb-Cholecalci ferol (CALCIUM 600 + D PO) Take 1 Tab by mouth daily. Active HYDROcodone-cristian taminophen (NORCO) 10-325 MG TabletIndicatio ns:Moderate to Moderately Severe Pain Take 2 Tabs by mouth every 6 hours as needed for Pain (2 TIMES DAILY WITH MEALS PRN). Indications: Moderate to Moderately Severe Pain 30 Tab 0 6 Active hydrocortisone- pramoxine (PROCTOFOAM-HC) 1-1 % Foam 1 Applicator by Rectal route every 12 hours. 1 Can 2 6 Active clotrimazole-be tamethasone (LOTRISONE) 1-0.05 % Cream Apply bid 45 g 2 6 Active hydrOXYzine (ATARAX) 25 MG Tablet Take 1 Tab by mouth every 6 hours as needed for Itching. 30 Tab 0 6 Active betamethasone dipropionate, augmented, (DIPROLENE-AF) 0.05 % Cream APPLY EXTERNALLY TO AFFECTED AREA TWICE A DAY 50 g 4 6 Active clotrimazole (LOTRIMIN) 1 % Cream APPLY EXTERNALLY TO AFFECTED AREA TWICE A DAY 45 g 0 6 Active Additional Information Patient not taking.Reported on 01/28/2017 LORazepam (ATIVAN) 2 MG Tablet TAKE ONE TABLET BY MOUTH AT BEDTIME 30 Tab 4 7 Active Additional Information Patient not taking.Reported on 01/28/2017 rivaroxaban (XARELTO) 20 MG Tablet Take 1 Tab by mouth daily. 180 Tab 3 7 Active valsartan-hydro CHLOROthiazide (DIOVAN-HCT) 160-12.5 MG Tablet Take 1 Tab by mouth daily. 90 Tab 3 7 Active polyethylene glycol (MIRALAX) Powder Mix the entire bottle with 64 oz of a clear liquid. Use as directed by the office for colonoscopy prep. 255 g 7 Active HYDROcodone Bitartrate (ZOHYDRO ER PO) Take by mouth 2 times daily as needed. Active levothyroxine (SYNTHROID) 75 MCG Tablet TAKE ONE TABLET BY MOUTH DAILY 90 Tab 3 7 Active PARoxetine (PAXIL) 20 MG Tablet Take 1 Tab by mouth daily. 90 Tab 1 7 Active esomeprazole (NEXIUM) 40 MG CAPSULE DELAYED RELEASE TAKE ONE CAPSULE BY MOUTH EVERY MORNING BEFORE BREAKFAST 90 Cap 2 8 Active amLODIPine (NORVASC) 5 MG Tablet TAKE ONE TABLET BY MOUTH DAILY 90 Tab 2 8 Active fluticasone (FLONASE) 50 MCG/ACT Suspension USE 2 SPRAYS IN EACH NOSTRIL DAILY 16 g 8 8 Active VESICARE 5 MG Tablet TAKE ONE TABLET BY MOUTH DAILY 90 Tab 2 8 Active raNITIdine (ZANTAC) 300 MG Tablet TAKE ONE TABLET BY MOUTH TWICE A DAY 180 Tab 1 8 Active potassium chloride CR (KLORCON) 10 MEQ Tablet Controlled Release Take 2 Tabs by mouth daily. 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 Gastrointestinal hemorrhage 01/13/2017 Acute deep vein thrombosis ( DVT) of proximal vein of left lower extremity 09/09/2015 PE (pulmonary thromboembolism) 09/09/2015 Osteoporosis Lupus Rheumatoid arthritis (<HCC>) Dyspepsia HTN (hypertension) Chronic urticaria Anxiety Glaucoma Immunizations Immunization Administration Dates Next Due Influenza Vaccine greater than 3 yrs 03/23/2012 PUR FLU HIGH DOSE (FLUZONE) 07/15/2016 Pneumococcal Vaccine Adult - 23 Valent 7 Tetanus Toxoid, Unspecified Formulation 06/23/19 07 Zoster Vaccine, live 06/23/2008 Family History Medical History Relation Name Comments Stroke Father Cancer Mother Relation Name Status Comments Father Mother Social History Tobacco Use Types Packs/Day Years Used Date Smoking Tobacco: Never Smokeless Tobacco: Never Tobacco Cessation:Counseling Given: Yes Alcohol Use Standard Drinks/Week Comments No 0 (1 standard drink = 0.6 oz pur e alcohol) Comments No Sex and Gender Information Value Date Recorded Sex Assigned at Not on file Legal Sex Female 11:48 PM CDT Gender Identity Not on file Sexual Orientation Not on file Last Filed Vital Signs Vital Sign Reading Time Taken Comments Blood Pressure 153/75 04/16/2017 2:58 PM CDT Pulse 65 04/16/2017 12:47 PM CDT Temperature 36 ??C (96.8 ??F) 04/16/2017 2:58 PM CDT Respiratory Rate 18 04/16/2017 2:58 PM CDT Oxygen Saturation 100% 04/16/2017 2:58 PM CDT Inhaled Oxygen Concentration - - Weight 108.9 kg (240 lb) 04/16/2017 12:47 PM CDT Height 160 cm (5' 3 ) 04/16/2017 12:47 PM CDT Body Mass Index 42.51 04/16/2017 12:47 PM CDT Plan of Treatment Health Maintenance Due Date Last Done Comments DEXA Bone Density 1940 TdaP Immunization 1940 Pneumococcal Immunization (65+ years) (2 of 2 - PCV) 06/23/2007 06/23/2006 Zoster Immunization (2 of 3) 08/18/2008 06/23/2008 Respiratory Syncytial Virus (RSV) Immunization (Adult) (1 - 1-dose 75+ series) 10/01/2015 Influenza Immunization (#1) 02/22/202406/23, 05/04/2020, 07/15/2016, Additional history exists SARS-COV-2 Immunization ( 2023- season) 2024 07/12/2021, 09/19/2020, 08/29/2020 Pneumococcal Immunization Combined Discontinued 06/23/2006 Hepatitis C Virus (HCV) Screening Completed 03/03/2017 Hepatitis B Immunization Aged Out No longer eligible based on patient's age to complete this topic Meningococcal Immunization (ACWY) Aged Out No longer eligible based on patient's age to complete this topic Rotavirus Immunization Aged Out No lo nger eligible based on patient's age to complete this topic Procedures Procedure Name Priority Date/Time Associated Diagnosis Comments HEPATITIS PANEL ACUTE (AHP) Routine 03/03/2017 10:47 AM CDT Abnormal liver enzymes from Last 3 Months or Most Recently Relevant to Health Maintenance Results * HEPATITIS PANEL ACUTE (AHP) (03/03/2017 10:47 AM CDT) HEPATITIS A IGM ANTIBODY NON DETECTED NON DETECTED 03/03/2017 11:20 PM CDT [facility] Comment: IGM Antibodies to HAV not detected. ??Does not exclude early acute or recovered HAV infection. HEP B CORE AB (IGM) NON DETECTED NON DETECTED 03/03/2017 11:20 PM CDT [facility] Comment: IGM anti-HBC not detected. ??Does not exclude the possibility of exposure to or infection with HBV. HEPATITIS B SURFACE ANTIGEN NON DETECTED NON DETECTED 03/03/2017 11:20 PM CDT [facility] Comment: A nonreactive test result does not exclude the possibility of exposure to or infection with Hepatitis B virus. A nonreactive test result in individuals with prior exposure to hepatitis B may be due to antigen levels below the detection limit of this assay or lack of antigen reactivity to the antibodies in this assay. hepatitis C antibody 0.13 <1 S/CO 03/03/2017 11:20 PM CDT [facility] Comment: Signal/Cutoff ratio ??< 0.79 is Nondetected Signal/Cutoff ratio 0.80-0.99 is Grayzone Signal/Cutoff ratio > 0.99 is Detected Supplemental assays are recommended if signal/cutoff ratio is >/=1.00. ??Signal/cutoff ratio result >/= 5.00 is 97% predictive of positivity for recombinant immunoblot assay (RIBA) and will be reported to the [place] Department of Public Health as required. Blood specimen (specimen) Venipuncture / Unknown 03/03/2017 10:47 AM CDT 03/03/2017 12:22 PM CDT us David Patel MD HEMATOLOGY ORDERABLES F inal Result [facility] [address] [place] [address], [place] from Last 3 Months or Most Recently Relevant to Health Maintenance Insurance MEDICARE [place]ICAID [place] Advance Directives * Full Code (Latest Code Status on File) Date Activated Date Inactivated Comments 09/08/2015 4:55 PM 09/10/2015 3:27 PM Full Code: FULL ARREST: Attempt Resuscitation/CPR and use intubation and mechanical ventilation as indicated. PRE-ARREST: Use all measures to stabilize patient. Care Teams Driller Hand Relationship Specialty Start Date End Date Provider, Not On File [place] PCP - General 11/14/21
--- OUTSIDE RECORDS SUMMARY | 2024-06-09 02:25 | XMS_ITS | Encounter Summary ---
Author Organization [facility] Address [address] [place] [address] Phone Care Team Providers Care Case Packer Name Role Phone Provider, Not On File Primary Care Provider Unav ailable Reason for Referral * Radiology Services (Routine) - Closed Specialty Diagnoses / Procedures Referred By Conttroy t Referred To Contact Radiology Diagnoses Preop examination Procedures EKG 12 LEAD Mayda Patiño APRN, CNP [address] [facility] [address] [place] [address] Phone: tel: fax: Referral ID Status Reason Start Date Expiration Date Visits Re quested Visits Authorized [id number] Closed 11/14/2021 1 1 Encounter Details Date Type Department Care Team (Late st Contact Info) Description 11/14/2021 Transcribe Orders [facility] Patient Access Admitting [address] [place] [id number] Mayda Patiño APRN, CNP [address] [facility] [facility] [address] [place] [phone] Preop examination (Primary Dx) Social History Tobacco Use Types Packs/Day Years Used Date Smoking Tobacco: Never Smokeless Tobacco: Never Alcohol Use Standard Drinks/Week Comments No 0 [...] suspected to have Coronavirus/COVID-19? No / Unsure 11/14/2021 9:55 AM CDT documented as of this encounter Plan of Treatment Scheduled Orders Name Type Priority Associated Diagnoses Orde r Schedule COMPLETE BLOOD COUNT (CBC) WITH DIFF Lab Routine Preop examination Expected: 11/14/2021, Expires: 11/14/2022 C-REACTIVE PROTEIN (CRP) QUANT Lab Routine Preop examination Expected: 11/14/2021, Expires: 11/14/2022 ERYTHROCYTE SEDIMENTATION RATE (ESR) Lab Routine Preop examination Expected: 11/14/2021, Expires: 11/14/2022 CMP (COMPREHENSIVE METABOLIC PANEL) Lab Routine Preop examination Expected: 11/14/2021, Expires: 11/14/2022 URINALYSIS (UA) MACROSCOPIC Lab Routine Preop examination Expected: 11/14/2021, Expires: 11/14/2022 EKG 12 LEAD ECG Routine Preop examination Expected: 11/14/2021, Expires: 11/14/2022 documented as of this encounter Visit Diagnoses Diagnosis Preop examination- Primary Preoperative examination, unspecified documented in this encounter Additional Health Concerns Assessment Noted Time PHQ-9 Depression Total Score: 0 01/14/20 17 1:00 PM CDT documented as of this encounter Care Teams Case Packer Relationship Specialty Start Date End Date Provider, Not On File [place] PCP - General 11/14/21 documented as of this encounter
--- OUTSIDE RECORDS SUMMARY | 2024-06-09 02:25 | XMS_ITS | Encounter Summary ---
Author Organization [facility] Address [address] [place] [address] Phone Care Team Providers Care Linen Controller Name Role Phone Provider, Not On File Primary Care Provider Unav ailable Reason for Referral * Radiology Services (Routine) - Closed Specialty Diagnoses / Procedures Referred By Eliana dee Referred To Contact Radiology Diagnoses Preop examination Procedures EKG 12 LEAD Tavia Childress APRN, CNP [address] [place] [address] Phone: tel: fax: Referral ID Status Reason Start Date Expiration Date Visits Re quested Visits Authorized [id number] Closed 11/14/2021 1 1 Encounter Details Date Type Department Care Team (Late st Contact Info) Description 11/14/2021 Transcribe Orders [facility] Central Scheduling 1 [facility] [place] [id number] Tavia Childress APRN, CNP [address] [place] [address] Preop examination (Primary Dx) Social History Tobacco [...] documented as of this encounter Results * EKG 12 LEAD (11/14/2021 10:41 AM CDT) Pathologist [facility] Ventricular Rate BPM EXTERNAL EKG Atrial Rate BPM EXTERNAL EKG P-R Interval 200 ms EXTERNAL EKG QRS Duration 80 ms EXTERNAL EKG Q-T Duration 408 ms EXTERNAL EKG QTC CALCULATION 438 ms EXTERNAL EKG P [place] -3 degrees EXTERNAL EKG R [place] 21 degrees EXTERNAL EKG T [place] 27 degrees EXTERNAL EKG 11/14/2021 10:4 1 AM CDT Impressions EXTERNAL EKG - 11/16/2021 10:39 AM CDT Sinus rhythm Low QRS voltages in precordial leads Comparison Summary: No serial comparison made Summary: Borderline ECG Confirmed by Aris Lee [id number] on 11/16/2021 10:39:35 AM Narrative Procedure Note Jesus Buckley MD - 11/16/2021 IMPRESSION: Sinus rhythm Low QRS voltages in precordial leads Comparison Summary: No serial comparison made Summary: Borderline ECG Confirmed by Aris Lee [id number] on 11/16/2021 10:39:35 AM Tavia Childress APRN, SRAVANTHI IMG ECG ORDERABLES [facility] Result EXTERNAL EKG * (ABNORMAL) URINALYSIS REFLEX IF INDICATED BY ABNORMAL RESULTS (11/14/2021 10:27 AM CDT) [facility] SPECIFIC GRAVITY 1.020 1.003 - 1.030 11/14/2021 11:15 AM CDT [facility] URINE PH 5.0 5.0 - 9.0 11/14/2021 11:15 AM CDT [facility] WBC ESTERASE Negative Negative 11/14/2021 11:15 AM CDT [facility] NITRITE Negative Negative 11/14/2021 11:15 AM CDT [facility] PROTEIN, RANDOM URINE 15 mg/dL(A) Negative 11/14/2021 11:15 AM CDT [facility] URINE GLUCOSE, QUAL Negative Negative 11/14/2021 11:15 AM CDT [facility] URINE KETONES Negative Negative 11/14/2021 11:15 AM CDT [facility] UROBILINOGEN Normal Normal mg/dL 11/14/2021 11:15 AM CDT [facility] URINE BLOOD 10 /uL(A) Negative marimar/ul 11/14/2021 11:15 AM CDT [facility] URINALYSIS COLOR Yellow 11/15/19 11:15 AM CDT [facility] URINALYSIS CLARITY Slightly Cloudy 11/14/2021 11:15 AM CDT [facility] WBC (Urine) 0-5 Negative, 0-5 /hpf 11/14/2021 11:15 AM CDT [facility] URINE RBC'S Negative Negative, 0-2 /hpf 11/14/2021 11:15 AM CDT [facility] EPITHELIAL CELLS Small amount /lpf 2021 11:15 AM CDT [facility] BACTERIA, URINE Moderate(A) Negative /hpf 11/14/2021 11:15 AM CDT [facility] CASTS 1-5/LPF Finely Granular Casts(A) Negative, 0-2/lpf, 3-5/lpf, 6-10/lpf, 11-20/lpf, >20/lpf /lpf 11/14/2021 11:15 AM CDT [facility] Urine URINE SPECIMEN COLLECTION, CLEAN CATCH / Unknown Non-Phlebotomy Collection / Unknown 11/14/2021 10:27 AM CDT 11/14/2021 10:42 AM CDT us Tavia Childress RELATIONSHIP MANAGEMENT LEAD, AUTOMOTIVE SALES ASSOCIATE URINE ORDERABLES Dulce l Result [facility] [address] [place] [address] * (ABNORMAL) CMP (COMPREHENSIVE METABOLIC PANEL) (11/14/2021 10:21 AM CDT) SODIUM 140 136 - 144 mmol/L 11/14/2021 11:09 AM T [facility] POTASSIUM 4.7 3.5 - 5.1 mmol/L 11/14/2021 11:09 AM T [facility] CHLORIDE 101 100 - 110 mmol/L 11/14/2021 11:09 AM T [facility] CO2, VENOUS 30 22 - 32 mmol/L 11/14/2021 11:09 AM [facility] ANION GAP 13.7 8.0 - 20.0 mmol/L 11/14/2021 11:09 AM [facility] GLUCOSE 102(H) 70 - 99 mg/dL 11/14/2021 11:09 AM [facility] BUN 26(H) 8 - 23 mg/dL 11/14/2021 11:09 AM [facility] CREATININE, BLOOD 0.60 0.60 - 1.10 mg/dL 11/14/2021 11:09 AM [facility] BUN/CREATININE RATIO 43(H) 12 - 20 ratio 11/14/2021 11:09 AM [facility] TOTAL PROTEIN 6.6 6.0 - 8.3 g/dL 11/14/2021 11:09 AM [facility] ALBUMIN 4.1 3.5 - 5.2 g/dL 11/14/2021 11:09 AM [facility] Comment: The colormetric methods used for the determination of Albumin may lead to falsely elevated test results in patients suffering from renal failure or insufficiency due to interference with other proteins. A/G RATIO 1.6 1.0 - 2.0 11/14/2021 11:09 AM [facility] CALCIUM 9.6 8.9 - 10.3 mg/dL 11/14/2021 11:09 AM [facility] T BILI 0.3 <=1.2 mg/dL 11/14/2021 11:09 AM CDT [facility] SGOT (AST) 21 <=32 U/L 11/14/2021 11:09 AM CDT [facility] SGPT (ALT) 17 <=41 U/L 11/14/2021 11:09 AM CDT [facility] ALKALINE PHOSPHATASE 96 35 - 105 U/L 11/14/2021 11:09 AM CDT [facility] GFR, EST. NONAFRICAN >60 >=60 11/14/2021 11:09 AM CDT [facility] GFR, EST. >60 >=60 022 11:09 AM CDT [facility] Comment: Creatinine Clearance is the preferred criteria for selecting drug dose adjustments in renally impaired patients. ??The GFR is provided as additional pertinent clinical information. GFR is reported in mL/min/1.73 sq m. IS THE PATIENT REQUIRED TO BE FASTING? No 11/14/2021 11:09 AM CDT [facility] Blood Venipuncture / Unknown 11/14/2021 10:21 AM CDT 11/14/2021 10:43 AM CDT Tavia Childress APRN, SRAVANTHI CHEMISTRY ORDERABLES Final Result [facility] [address] [place] [address] * ERYTHROCYTE SEDIMENTATION RATE (ESR) (11/14/2021 10:21 AM CDT) ESR (SED RATE, ERYTHROCYTE SEDIMENTATION RATE) 8 <30 mm/h 11/14/2021 11:08 AM CDT [facility] Comment: Patients presenting with increased level of fibrinogen, gamma globulins, or abnormally shaped RBCs could affect the results for the erythrocyte sedimentation rate (ESR). Results should be clinically correlated. Blood Venipuncture / Unknown 11/14/2021 10:21 AM CDT 11/14/2021 10:43 AM CDT us Tavia Childress APRN, SRAVANTHI HEMATOLOGY ORDERABLES Final Result Performing Organization Address City/[facility] Co de Phone Number [facility] [address] [place] [address] * C-REACTIVE PROTEIN (CRP) QUANT (11/14/2021 10:21 AM CDT) C-REACTIVE PROTEIN <=0.30 <0.50 mg/dL 11/14/2021 11:09 AM CDT [facility] Blood Venipuncture / Unknown 11/14/2021 10:21 AM CDT 11/14/2021 10:43 AM CDT us Tavia Childress APRN, SRAVANTHI CHEMISTRY ORDERABLES Final Result Performing Organization Address City/[facility] Co de Phone Number [facility] [address] [place] [address] documented in this encounter Visit Diagnoses Diagnosis Preop examination- Primary Preoperative examination, unspecified Preop examination Preoperative examination, unspecified documented in this encounter Additional Health Concerns Assessment Noted Time PHQ-9 Depression Total Score: 0 01/14/20 17 1:00 PM CDT documented as of this encounter Care Teams Linen Controller Relationship Specialty Start Date End Date Provider, Not On File [place] PCP - General 11/14/21 documented as of this encounter
--- OUTSIDE RECORDS SUMMARY | 2024-06-09 02:25 | XMS_ITS | Encounter Summary ---
Author Organization [facility] Address [address] [place] [address] Phone Care Team Providers Care Video Game Developer Name Role Phone Provider, Not On File Primary Care Provider Unav ailable Reason for Referral * Radiology Services (Routine) - Closed Specialty Diagnoses / Procedures Referred By Augustineac luiz Referred To Contact Radiology Diagnoses Preop examination Procedures EKG 12 LEAD Tavia Childress APRN, CNP [address] [place] [address] Phone: tel: fax: Referral ID Status Reason Start Date Expiration Date Visits Re quested Visits Authorized [id number] Closed 11/14/2021 1 1 Reason for Visit * Radiology Services (Routine) - Closed Specialty Diagnoses / Procedures Referred By Eliana dee Referred To Contact Radiology Diagnoses Preop examination Procedures EKG 12 LEAD Tavia Childress APRN, CNP [address] [place] [address] Phone: tel: fax: Referral ID Status Reason Start Date Expiration Date Visits Re quested Visits Authorized [id number] Closed 11/14/2021 1 1 Encounter Details Date Type Department Care Team ([facility] st Contact Info) Description 11/14/2021 10:00 AM CDT - 11/14/2021 11:59 PM CDT Hospital Encounter [facility] Cardiology Services [address] [place] [id number] [place], Tavia A, DIRECTOR OF VIDEO ANALYTICS, PUBLIC HEALTH ENGINEER [address] [place] [address] Discharge Disposition: Discharged to home or Selfcare Social History Tobacco Use Types Packs/Day Years [...] AM CDT documented as of this encounter Medications at Time of Discharge amLODIPine (NORVASC) 5 MG Tablet TAKE ONE TABLET BY MOUTH DAILY 90 Tab 2 07/23/2017 betamethasone dipropionate, augmented, (DIPROLENE-AF) 0.05 % Cream APPLY EXTERNALLY TO AFFECTED AREA TWICE A DAY 50 g 4 03/10/2016 Bimatoprost (LUMIGAN) 0.01 % Solution Place 1 Drop in affected eye(s) nightly. To both eyes Calcium Carb-Cholecalcif roopa (CALCIUM 600 + D PO) Take 1 Tab by mouth daily. clotrimazole (LOTRIMIN) 1 % Cream APPLY EXTERNALLY TO AFFECTED AREA TWICE A DAY 45 g 0 05/13/2016 clotrimazole-bet amethasone (LOTRISONE) 1-0.05 % Cream Apply bid 45 g 2 02/08/2016 Cyanocobalamin (VITAMIN B12 PO) 2,500 Int'l Units by Sublingual route daily. esomeprazole (NEXIUM) 40 MG CAPSULE DELAYED RELEASE TAKE ONE CAPSULE BY MOUTH EVERY MORNING BEFORE BREAKFAST 90 Cap 2 07/11/2017 fluticasone (FLONASE) 50 MCG/ACT Suspension USE 2 SPRAYS IN EACH NOSTRIL DAILY 16 g 8 08/04/2017 HYDROcodone Bitartrate (ZOHYDRO ER PO) Take by mouth 2 times daily as needed. HYDROcodone-acet aminophen (NORCO) 10-325 MG TabletIndication s:Moderate to Moderately Severe Pain Take 2 Tabs by mouth every 6 hours as needed for Pain (2 TIMES DAILY WITH MEALS PRN). Indications: Moderate to Moderately Severe Pain 30 Tab 0 09/10/2015 hydrocortisone-p ramoxine (PROCTOFOAM-HC) 1-1 % Foam 1 Applicator by Rectal route every 12 hours. 1 Can 2 09/21/2015 hydrOXYzine (ATARAX) 25 MG Tablet Take 1 Tab by mouth every 6 hours as needed for Itching. 30 Tab 0 02/22/2016 levothyroxine (SYNTHROID) 75 MCG Tablet TAKE ONE TABLET BY MOUTH DAILY 90 Tab 3 04/24/2017 LORazepam (ATIVAN) 2 MG Tablet TAKE ONE TABLET BY MOUTH AT BEDTIME 30 Tab 4 08/05/2016 PARoxetine (PAXIL) 20 MG Tablet Take 1 Tab by mouth daily. 90 Tab 1 05/09/2017 polyethylene glycol (MIRALAX) Powder Mix the entire bottle with 64 oz of a clear liquid. Use as directed by the office for colonoscopy prep. 255 g 03/05/2017 potassium chloride CR (KLORCON) 10 MEQ Tablet Controlled Release Take 2 Tabs by mouth daily. 60 Tab 11/05/2017 raNITIdine (ZANTAC) 300 MG Tablet TAKE ONE TABLET BY MOUTH TWICE A DAY 180 Tab 1 08/13/2017 rivaroxaban (XARELTO) 20 MG Tablet Take 1 Tab by mouth daily. 180 Tab 3 10/11/2016 valsartan-hydroC HLOROthiazide (DIOVAN-HCT) 160-12.5 MG Tablet Take 1 Tab by mouth daily. 90 Tab 3 10/11/2016 VESICARE 5 MG Tablet TAKE ONE TABLET BY MOUTH DAILY 90 Tab 2 08/04/2017 documented as of this encounter Plan of Treatment Not on file documented as of this encounter Procedures Procedure Name Priority Date/Time Associated Diagnosis Comments EKG 12 LEAD Routine 11/14/2021 10:41 AM CDT Preop examination documented in this encounter Results * EKG 12 LEAD (11/14/2021 10:41 AM CDT) Ventricular Rate BPM EXTERNAL EKG Atrial Rate BPM EXTERNAL EKG P-R Interval 200 ms EXTERNAL EKG QRS Duration 80 ms EXTERNAL EKG Q-T Duration 408 ms EXTERNAL EKG QTC CALCULATION 438 ms EXTERNAL EKG P [place] -3 degrees EXTERNAL EKG R [place] 21 degrees EXTERNAL EKG T [place] 27 degrees EXTERNAL EKG 11/14/2021 10:4 1 AM CDT Impressions EXTERNAL EKG - 11/16/2021 10:39 AM CDT Sinus rhythm Low QRS voltages in precordial leads Comparison Summary: No serial comparison made Summary: Borderline ECG Confirmed by Aris Lee [id number] on 11/16/2021 10:39:35 AM Narrative Procedure Note Jesus Buckley MD - 11/16/2021 IMPRESSION: Sinus rhythm Low QRS voltages in precordial leads Comparison Summary: No serial comparison made Summary: Borderline ECG Confirmed by Aris Lee [id number] on 11/16/2021 10:39:35 AM us Tavia Childress DIRECTOR OF VIDEO ANALYTICS, PUBLIC HEALTH ENGINEER IMG ECG ORDERABLES Fi nal Result EXTERNAL EKG documented in this encounter Visit Diagnoses Diagnosis Preop examination Preoperative examination, unspecified documented in this encounter Additional Health Concerns Assessment Noted Time PHQ-9 Depression Total Score: 0 01/14/20 17 1:00 PM CDT documented as of this encounter Care Teams Video Game Developer Relationship Specialty Start Date End Date Provider, Not On File [place] PCP - General 11/14/21 documented as of this encounter
--- OUTSIDE RECORDS SUMMARY | 2024-06-09 02:25 | XMS_ITS | Encounter Summary ---
Author Organization [facility] Care Team Providers Care Remotely Operated Vehicle Name Role Phone Provider, Not On File Primary Care Provider Unav ailable Encounter Details Date Type Department Care Team (Latest Contact Info) Description 11/14/2021 Travel Social History Tobacco Use Types Packs/Day [...] Diagnoses Not on filedocumented in this encounter Additional Health Concerns Assessment Noted Time PHQ-9 Depression Total Score: 0 01/14/20 17 1:00 PM CDT documented as of this encounter Care Teams Remotely Operated Vehicle Relationship Specialty Start Date End Date Provider, Not On File [place] PCP - General 11/14/21 documented as of this encounter
--- OUTSIDE RECORDS SUMMARY | 2024-06-09 02:33 | XMS_ITS | Clinical Summary ---
Author Organization Unknown Care Team Providers [employer] Name Role Phone NAMAN VALDOVINOS, EVAN Unavailable Unavailable WILLIAMS PHYSICAL THERAPIST, DEMARCUS Unavailabl e Unavailable BAKER BLADE OPERATOR, EITAN Unavail able Unavailable NELLY REGISTERED NURSE, ALBINA Unavailable Unavailable DENISSE OT, SHELDON Unavailable Unavailabl e Payers Payer Name Policy Type Policy Number Effective Date Expira tion Date MEDICARE [place] - EPISODIC [id number] Problems Condition Name Condition Details Condition Category Status Onset Date Resolution Date Last Treatment Date Treating Clinician Comments UNSP FRACTURE OF T5-T6 VERTEBRA, SUBS FOR FX W ROUTN HEAL Active 10-21 00:00: 00 MULTIPLE FX OF RIBS, LEFT SIDE, SUBS FOR FX W ROUTN HEAL Active 10-21 00:00: 00 HYPOTHYROIDI SM, UNSPECIFIED Active 10-21 00:00: 00 HYPERLIPIDEM IA, UNSPECIFIED Active 10-21 00:00: 00 DEPRESSION, UNSPECIFIED Active 10-21 00:00: 00 ANXIETY DISORDER, UNSPECIFIED Active 10-21 00:00: 00 ESSENTIAL (PRIMARY) HYPERTENSION Active 10-21 00:00: 00 GASTRO-ESOPH AGEAL REFLUX DISEASE WITHOUT ESOPHAGITIS Active 06-23 00:00: 00 ESOPHAGEAL OBSTRUCTION Active - 00:00: 00 PERSONAL HISTORY OF PULMONARY EMBOLISM Active 10-21 00:00: 00 PERSONAL HISTORY OF OTHER VENOUS THROMBOSIS AND EMBOLISM Active 10-21 00:00: 00 PRESENCE OF ARTIFICIAL KNEE JOINT, BILATERAL Active 10-21 00:00: 00 RETIREMENT (CURRENT) USE OF ANTICOAGULAN TS Active - 00:00: 00 HORMONE REPLACEMENT THERAPY Active - 00:00: 00 PROBLEMS RELATED TO LIVING ALONE Active 20206-23 00:00: 00 HISTORY OF FALLING Active 10-21 00:00: 00 Allergies, Adverse Reactions, Alerts Allergy Name Allergy Type Status Severity Reaction(s) Onset Date Inactive Date Treating Clinician Comments DOMO INHIBITORS Propensity to adverse reactions Active 11-14 15:22: 48 CLARITHROMYC IN Propensity to adverse reactions Active 11-14 15:23: 00 EZETIMIBE Propensity to adverse reactions Active 11-14 15:23: 16 HMG-COA REDUCTASE INHIBITORS Propensity to adverse reactions Active 11-14 15:23: 26 Medications Ordered Medication Name Filled Medication Name Start Date Stop Date Current Medication? Ordering Clinician Indication Dosage Frequency Signature (SIG) Comments Components Eliquis 5 mg tablet 2022-06 00:00: 00 11-12 23:59 :00 No [id number] BLOOD THINNER; BLOOD CLOT PREVENTION 1 tablet TWICE DAILY 1 tablet TWICE DAILY (route: oral) Med Classific ation: Hematolog ical Agents famotidine 20 mg tablet 2022-06 00:00: 00 11-12 23:59 :00 No [id number] GERD 1 tablet TWICE DAILY 1 tablet TWICE DAILY (route: oral) Med Classific ation: Gastroint estinal Therapy Agents furosemide 40 mg tablet 2022-06 00:00: 00 11-12 23:59 :00 No [id number] HTN/EDEMA 1 tablet ONCE DAILY 1 tablet ONCE DAILY (route: oral) Med Classific ation: Cardiovas cular Therapy Agents hydrocodone 10 mg-acetamin ophen 325 mg tablet 2022-06 00:00: 00 11-12 23:59 :00 No [id number] PAIN 1 tablet EVERY 8 HOURS 1 tablet EVERY 8 HOURS (route: oral) Med Classific ation: Analgesic , Anti-infl ammatory or Antipyret ic irbesartan 150 mg tablet 2022-06 00:00: 00 11-12 23:59 :00 No [id number] HTN 1 tablet ONCE DAILY 1 tablet ONCE DAILY (route: oral) Med Classific ation: Cardiovas cular Therapy Agents Lumigan 0.01 % eye drops 2022-06 00:00: 00 11-12 23:59 :00 No [id number] EYES 1 drops ONCE DAILY 1 drops ONCE DAILY (route: ophthalmic (eye)) Med Classific ation: Ophthalmi c Agents metoprolol succinate ER 100 mg tablet,exte nded release 24 hr 2022-06 00:00: 00 11-12 23:59 :00 No [id number] HTN 1 tablet ONCE DAILY 1 tablet ONCE DAILY (route: oral) Med Classific ation: Cardiovas cular Therapy Agents paroxetine 20 mg tablet 2022-06 00:00: 00 11-12 23:59 :00 No [id number] MOOD 1 tablet ONCE DAILY 1 tablet ONCE DAILY (route: oral) Med Classific ation: Central Nervous System Agents potassium chloride ER 10 mEq tablet,exte nded release 2022-06 00:00: 00 11-12 23:59 :00 No [id number] LOW POTASSIUM 1 tablet ONCE DAILY 1 tablet ONCE DAILY (route: oral) Med Classific ation: Electroly te Balance-N utritiona l Products amlodipine 5 mg tablet 11-18 00:00: 00 Yes [id number] HTN 1 tablet ONCE DAILY 1 tablet ONCE DAILY (route: oral) Med Classific ation: Cardiovas cular Therapy Agents atorvastati n 40 mg tablet 11-18 00:00: 00 Yes [id number] HLD 1 tablet ONCE DAILY 1 tablet ONCE DAILY (route: oral) Med Classific ation: Cardiovas cular Therapy Agents bimatoprost 0.03 % eye drops 11-18 00:00: 00 Yes [id number] GLAUCOMA 1 drops AT BEDTIME 1 drops AT BEDTIME (route: ophthalmic (eye)) Med Classific ation: Ophthalmi c Agents Eliquis 5 mg tablet 11-18 00:00: 00 Yes [id number] BLOOD CLOTS 1 tablet TWICE DAILY 1 tablet TWICE DAILY (route: oral) Med Classific ation: Hematolog ical Agents famotidine 20 mg tablet 11-18 00:00: 00 Yes [id number] GERD 2 tablet ONCE DAILY 2 tablet ONCE DAILY (route: oral) Med Classific ation: Gastroint estinal Therapy Agents furosemide 40 mg tablet 11-18 00:00: 00 Yes [id number] WATER PILL 1 tablet ONCE DAILY 1 tablet ONCE DAILY (route: oral) Med Classific ation: Cardiovas cular Therapy Agents hydrocodone 10 mg-acetamin ophen 325 mg tablet 11-18 00:00: 00 Yes [id number] PAIN 1 tablet EVERY 8 HOURS 1 tablet EVERY 8 HOURS (route: oral) Med Classific ation: Analgesic , Anti-infl ammatory or Antipyret ic levothyroxi ne 75 mcg tablet 11-18 00:00: 00 Yes [id number] HYPOTHYROID ISM 1 tablet ONCE DAILY 1 tablet ONCE DAILY (route: oral) Med Classific ation: Endocrine Lidocaine Pain Relief 4 % topical patch 11-18 00:00: 00 Yes [id number] PAIN 1 adhesiv e patch, medicat ed ONCE DAILY 1 adhesive patch, medicated ONCE DAILY (route: topical) Med Classific ation: Dermatolo gical losartan 25 mg tablet 11-18 00:00: 00 12-20 23:59 :00 No [id number] HTN 3 tablet ONCE DAILY 3 tablet ONCE DAILY (route: oral) Med Classific ation: Cardiovas cular Therapy Agents metoprolol tartrate 100 mg tablet 11-18 00:00: 00 Yes [id number] HTN 1 tablet ONCE DAILY 1 tablet ONCE DAILY (route: oral) Med Classific ation: Cardiovas cular Therapy Agents paroxetine 20 mg tablet 11-18 00:00: 00 Yes [id number] ANXIETY AND DEPRESSON 1 tablet ONCE DAILY 1 tablet ONCE DAILY (route: oral) Med Classific ation: Central Nervous System Agents potassium chloride ER 10 mEq tablet,exte nded release 11-18 00:00: 00 Yes [id number] SUPPLEMENT 1 tablet TWICE DAILY 1 tablet TWICE DAILY (route: oral) Med Classific ation: Electroly te Balance-N utritiona l Products Vitamin C 500 mg tablet 11-18 00:00: 00 Yes [id number] SUPPLEMENT 1 tablet ONCE DAILY 1 tablet ONCE DAILY (route: oral) Med Classific ation: Electroly te Balance-N utritiona l Products Vitamin D3 50 mcg (2,000 unit) tablet 11-18 00:00: 00 Yes [id number] SUPPLEMENT 1 tablet ONCE DAILY 1 tablet ONCE DAILY (route: oral) Med Classific ation: Electroly te Balance-N utritiona l Products zinc gluconate 50 mg tablet 11-18 00:00: 00 Yes [id number] SUPPLEMENT 1 tablet ONCE DAILY 1 tablet ONCE DAILY (route: oral) Med Classific ation: Electroly te Balance-N utritiona l Products alendronate 70 mg tablet 12-22 00:00: 00 Yes [id number] BONE HEALTH 1 tablet WEEKLY 1 tablet WEEKLY (route: oral) Med Classific ation: Endocrine Vital Signs Vital Name Observation Time Observation Value Commen ts Temperature 2024-01-16 10:57:00.000 97.9 [degF] Temperature 2024-01-15 09:46:00.000 97.4 [degF] Temperature 2024-01-08 09:36:00.000 97.8 [degF] Temperature 2024-01-06 11:55:00.000 98.3 [degF] Temperature 2024-01-01 09:13:00.000 98 [degF] Temperature 2023-12-30 11:42:00.000 97.8 [degF] Temperature 2023-12-29 11:15:00.000 97.6 [degF] Temperature 2023-12-23 14:02:00.000 97.4 [degF] Temperature 2023-12-23 13:18:00.000 97.4 [degF] Temperature 2023-12-16 15:56:00.000 97.2 [degF] Temperature 2023-12-15 13:14:00.000 97.9 [degF] Temperature 2023-12-15 10:26:00.000 97.9 [degF] Temperature 2023-12-12 14:06:00.000 97.6 [degF] Temperature 2023-12-11 10:55:00.000 96.8 [degF] Temperature 2023-12-05 10:09:00.000 97.6 [degF] Temperature 2023-12-04 10:09:00.000 98.6 [degF] Temperature 2023-12-03 15:55:00.000 97 [degF] Temperature 2023-12-01 11:47:00.000 97.7 [degF] Temperature 2023-11-26 15:24:00.000 99.1 [degF] Temperature 2023-11-25 13:14:00.000 97.6 [degF] Temperature 2023-11-24 15:21:00.000 97.6 [degF] Temperature 2023-11-21 13:43:00.000 98.6 [degF] Temperature 2023-11-20 12:11:00.000 98 [degF] Temperature 2023-11-19 10:31:00.000 98.6 [degF] BMI (%) 2023-11-19 10:31:00.000 50 kg/m2 Height 2023-11-19 10:31:00.000 63 [in_us] Pulse 2024-01-16 10:57:00.000 68 /min Pulse 2024-01-15 09:46:00.000 60 /min Pulse 2024-01-08 09:36:00.000 65 /min Pulse 2024-01-06 11:55:00.000 66 /min Pulse 2024-01-01 09:13:00.000 66 /min Pulse 2023-12-30 11:42:00.000 62 /min Pulse 2023-12-29 11:15:00.000 62 /min Pulse 2023-12-23 14:02:00.000 64 /min Pulse 2023-12-23 13:18:00.000 64 /min Pulse 2023-12-16 15:56:00.000 63 /min Pulse 2023-12-15 13:14:00.000 64 /min Pulse 2023-12-15 10:26:00.000 62 /min Pulse 2023-12-12 14:06:00.000 60 /min Pulse 2023-12-11 10:48:00.000 62 /min Pulse 2023-12-05 10:09:00.000 64 /min Pulse 2023-12-04 10:11:00.000 60 /min Pulse 2023-12-03 15:55:00.000 60 /min Pulse 2023-12-01 11:47:00.000 64 /min Pulse 2023-11-26 15:24:00.000 68 /min Pulse 2023-11-25 13:06:00.000 64 /min Pulse 2023-11-24 15:21:00.000 76 /min Pulse 2023-11-21 13:43:00.000 74 /min Pulse 2023-11-20 12:11:00.000 63 /min Pulse 2023-11-19 10:31:00.000 60 /min O2 Saturation (%) 2024-01-16 10:57:00.000 97 % O2 Saturation (%) 2024-01-15 09:46:00.000 93 % O2 Saturation (%) 2024-01-08 09:36:00.000 97 % O2 Saturation (%) 2024-01-06 11:55:00.000 96 % O2 Saturation (%) 2024-01-01 09:13:00.000 92 % O2 Saturation (%) 2023-12-30 11:42:00.000 97 % O2 Saturation (%) 2023-12-29 11:16:00.000 96 % O2 Saturation (%) 2023-12-23 14:02:00.000 96 % O2 Saturation (%) 2023-12-23 13:18:00.000 96 % O2 Saturation (%) 2023-12-16 15:56:00.000 93 % O2 Saturation (%) 2023-12-15 13:14:00.000 98 % O2 Saturation (%) 2023-12-15 10:26:00.000 98 % O2 Saturation (%) 2023-12-12 14:06:00.000 95 % O2 Saturation (%) 2023-12-11 10:48:00.000 96 % O2 Saturation (%) 2023-12-05 10:09:00.000 97 % O2 Saturation (%) 2023-12-04 10:09:00.000 94 % O2 Saturation (%) 2023-12-03 15:55:00.000 98 % O2 Saturation (%) 2023-12-01 11:47:00.000 97 % O2 Saturation (%) 2023-11-25 13:06:00.000 94 % O2 Saturation (%) 2023-11-24 15:21:00.000 96 % O2 Saturation (%) 2023-11-21 13:43:00.000 94 % O2 Saturation (%) 2023-11-20 12:11:00.000 95 % O2 Saturation (%) 2023-11-19 10:31:00.000 96 % Respirations 2024-01-16 10:57:00.000 18 /min Respirations 2024-01-15 09:46:00.000 18 /min Respirations 2024-01-08 09:36:00.000 18 /min Respirations 2024-01-06 11:55:00.000 18 /min Respirations 2024-01-01 09:13:00.000 18 /min Respirations 2023-12-30 11:42:00.000 20 /min Respirations 2023-12-29 11:15:00.000 20 /min Respirations 2023-12-23 14:02:00.000 18 /min Respirations 2023-12-23 13:18:00.000 18 /min Respirations 2023-12-16 15:56:00.000 16 /min Respirations 2023-12-15 13:14:00.000 18 /min Respirations 2023-12-15 10:26:00.000 18 /min Respirations 2023-12-12 14:06:00.000 18 /min Respirations 2023-12-11 10:48:00.000 16 /min Respirations 2023-12-05 10:09:00.000 18 /min Respirations 2023-12-04 10:09:00.000 18 /min Respirations 2023-12-03 15:55:00.000 20 /min Respirations 2023-12-01 11:47:00.000 20 /min Respirations 2023-11-26 15:24:00.000 20 /min Respirations 2023-11-25 13:06:00.000 18 /min Respirations 2023-11-24 15:21:00.000 18 /min Respirations 2023-11-21 13:43:00.000 18 /min Respirations 2023-11-20 12:11:00.000 18 /min Respirations 2023-11-19 10:31:00.000 18 /min Weight (lbs) 2023-11-19 10:31:00.000 285.9 [lb_av] Systolic Blood Pressure 2024-01-16 10:57:00.000 124 mm [Hg] Systolic Blood Pressure 2024-01-15 09:46:00.000 130 mm [Hg] Systolic Blood Pressure 2024-01-08 09:36:00.000 115 mm [Hg] Systolic Blood Pressure 2024-01-06 11:55:00.000 124 mm [Hg] Systolic Blood Pressure 2024-01-01 09:13:00.000 110 mm [Hg] Systolic Blood Pressure 2023-12-30 11:42:00.000 128 mm [Hg] Systolic Blood Pressure 2023-12-29 11:15:00.000 126 mm [Hg] Systolic Blood Pressure 2023-12-23 14:02:00.000 136 mm [Hg] Systolic Blood Pressure 2023-12-23 13:18:00.000 136 mm [Hg] Systolic Blood Pressure 2023-12-16 15:56:00.000 142 mm [Hg] Systolic Blood Pressure 2023-12-15 13:14:00.000 134 mm [Hg] Systolic Blood Pressure 2023-12-15 10:26:00.000 134 mm [Hg] Systolic Blood Pressure 2023-12-12 14:06:00.000 118 mm [Hg] Systolic Blood Pressure 2023-12-11 10:48:00.000 124 mm [Hg] Systolic Blood Pressure 2023-12-05 10:09:00.000 114 mm [Hg] Systolic Blood Pressure 2023-12-04 10:09:00.000 128 mm [Hg] Systolic Blood Pressure 2023-12-03 15:55:00.000 112 mm [Hg] Systolic Blood Pressure 2023-12-01 11:47:00.000 118 mm [Hg] Systolic Blood Pressure 2023-11-26 15:24:00.000 122 mm [Hg] Systolic Blood Pressure 2023-11-25 13:06:00.000 114 mm [Hg] Systolic Blood Pressure 2023-11-24 15:21:00.000 106 mm [Hg] Systolic Blood Pressure 2023-11-21 13:43:00.000 118 mm [Hg] Systolic Blood Pressure 2023-11-20 12:11:00.000 116 mm [Hg] Systolic Blood Pressure 2023-11-19 10:31:00.000 130 mm [Hg] Diastolic Blood Pressure 2024-01-16 10:57:00.000 74 mm [Hg] Diastolic Blood Pressure 2024-01-15 09:46:00.000 70 mm [Hg] Diastolic Blood Pressure 2024-01-08 09:36:00.000 72 mm [Hg] Diastolic Blood Pressure 2024-01-06 11:55:00.000 78 mm [Hg] Diastolic Blood Pressure 2024-01-01 09:13:00.000 72 mm [Hg] Diastolic Blood Pressure 2023-12-30 11:42:00.000 68 mm [Hg] Diastolic Blood Pressure 2023-12-29 11:15:00.000 72 mm [Hg] Diastolic Blood Pressure 2023-12-23 14:02:00.000 68 mm [Hg] Diastolic Blood Pressure 2023-12-23 13:18:00.000 68 mm [Hg] Diastolic Blood Pressure 2023-12-16 15:56:00.000 58 mm [Hg] Diastolic Blood Pressure 2023-12-15 13:14:00.000 88 mm [Hg] Diastolic Blood Pressure 2023-12-15 10:26:00.000 80 mm [Hg] Diastolic Blood Pressure 2023-12-12 14:06:00.000 62 mm [Hg] Diastolic Blood Pressure 2023-12-11 10:48:00.000 68 mm [Hg] Diastolic Blood Pressure 2023-12-05 10:09:00.000 70 mm [Hg] Diastolic Blood Pressure 2023-12-04 10:09:00.000 64 mm [Hg] Diastolic Blood Pressure 2023-12-03 15:55:00.000 64 mm [Hg] Diastolic Blood Pressure 2023-12-01 11:47:00.000 62 mm [Hg] Diastolic Blood Pressure 2023-11-26 15:24:00.000 66 mm [Hg] Diastolic Blood Pressure 2023-11-25 13:06:00.000 64 mm [Hg] Diastolic Blood Pressure 2023-11-24 15:21:00.000 66 mm [Hg] Diastolic Blood Pressure 2023-11-21 13:43:00.000 64 mm [Hg] Diastolic Blood Pressure 2023-11-20 12:11:00.000 60 mm [Hg] Diastolic Blood Pressure 2023-11-19 10:31:00.000 72 mm [Hg] Plan of Treatment Planned Activity Planned Date Details Comments Future Scheduled Test HOME HEALT H NURSE WILL ASSESS FOR COMPLICATIONS RELATED TO FRACTURE OF T5-T6 AND INSTRUCT PATIENT/CAREGIVER ABOUT ACTIVITY RESTRICTIONS, TREATMENT STRATEGIES, PRECAUTIONS, AND SIGNS/SYMPTOMS TO REPORT. [code = HOME HEALTH NURSE WILL ASSESS FOR COMPLICATIONS RELATED TO FRACTURE OF T5-T6 AND INSTRUCT PATIENT/CAREGIVER ABOUT ACTIVITY RESTRICTIONS, TREATMENT STRATEGIES, PRECAUTIONS, AND SIGNS/SYMPTOMS TO REPORT.] Future Scheduled Test THE [facility] TIFYING PHYSICIAN, ASSOCIATED PHYSICIAN, NPP OR PA WITHIN THE SAME GROUP MAY APPROVE AND SIGN THE ORDER (ON ANY PAGE) ATTESTING THAT THE COMPREHENSIVE OUTCOME ASSESSMENTS, EVALUATIONS, AND HOME HEALTH CERTIFICATION PLANS SUPPORT HOMEBOUND STATUS. HOME HEALTH WEB-PORTAL DOCUMENTATION ACCESSED BY THE PHYSICIAN MUST BE INCORPORATED INTO THE MEDICAL RECORD TO CORROBORATE THE PHYSICIAN, NPP, OR PAS F2F ENCOUNTER TO SUPPORT ELIGIBILITY FOR HOME HEALTH SERVICES. [code = THE CERTIFYING PHYSICIAN, ASSOCIATED PHYSICIAN, NPP OR PA WITHIN THE SAME GROUP MAY APPROVE AND SIGN THE ORDER (ON ANY PAGE) ATTESTING THAT THE COMPREHENSIVE OUTCOME ASSESSMENTS, EVALUATIONS, AND HOME HEALTH CERTIFICATION PLANS SUPPORT HOMEBOUND STATUS. HOME HEALTH WEB-PORTAL DOCUMENTATION ACCESSED BY THE PHYSICIAN MUST BE INCORPORATED INTO THE MEDICAL RECORD TO CORROBORATE THE PHYSICIAN, NPP, OR PAS F2F ENCOUNTER TO SUPPORT ELIGIBILITY FOR HOME HEALTH SERVICES.] Future Scheduled Test EACH ORDER ED IN-HOME OR TELEHEALTH VISIT, THE SKILLED NURSE WILL CONDUCT A COMPREHENSIVE ASSESSMENT INCLUDING VITAL SIGNS, PAIN, SAFETY, MENTAL/COGNITIVE/PSYCHOSOCIAL STATUS, MED MANAGEMENT, NUTRITION, SKIN INTEGRITY, PRESSURE ULCER PREVENTION, AND PATIENT/CAREGIVER ABILITY TO SUPPORT ORDERED CARE. SKILLED NURSE WILL INSTRUCT ON DISEASE PROCESS, MED MGMT., FALL PREVENTION AND SAFETY, INFECTION CONTROL AND PREVENTION, WARNING SIGNS, ADDRESS RESULTS OUTSIDE OF ORDERED PARAMETERS LISTED ON CARE PLAN, AND COORDINATE DISCHARGE WITH THE TREATING PROVIDER. MAY ACCEPT ORDERS FROM THE FOLLOWING PROVIDER(S) WHO WILL BE CONSULTING ON THE CERTIFIED CARE PLAN: DR. FLORENCE [code = EACH ORDERED IN-HOME OR TELEHEALTH VISIT, THE SKILLED NURSE WILL CONDUCT A COMPREHENSIVE ASSESSMENT INCLUDING VITAL SIGNS, PAIN, SAFETY, MENTAL/COGNITIVE/PSYCHOSOCIAL STATUS, MED MANAGEMENT, NUTRITION, SKIN INTEGRITY, PRESSURE ULCER PREVENTION, AND PATIENT/CAREGIVER ABILITY TO SUPPORT ORDERED CARE. SKILLED NURSE WILL INSTRUCT ON DISEASE PROCESS, MED MGMT., FALL PREVENTION AND SAFETY, INFECTION CONTROL AND PREVENTION, WARNING SIGNS, ADDRESS RESULTS OUTSIDE OF ORDERED PARAMETERS LISTED ON CARE PLAN, AND COORDINATE DISCHARGE WITH THE TREATING PROVIDER. MAY ACCEPT ORDERS FROM THE FOLLOWING PROVIDER(S) WHO WILL BE CONSULTING ON THE CERTIFIED CARE PLAN: DR. FLORENCE] Future Scheduled Test SKILLED NU RSE TO INSTRUCT PATIENT/CAREGIVER ON WHAT IS HYPERTENSION, HOW TO CHECK HIS/HER BLOOD PRESSURE, AND STRATEGIES TO USE TO CONTROL BLOOD PRESSURE SUCH MONITORING BP, SMOKING CESSATION, MANAGING BLOOD GLUCOSE RESULTS TO AN ACCEPTABLE RANGE, MONITORING WEIGHTS, ENGAGING IN PHYSICAL ACTIVITY AIMING FOR 150 MINUTES SPREAD THROUGHOUT THE WEEK. [code = SKILLED NURSE TO INSTRUCT PATIENT/CAREGIVER ON WHAT IS HYPERTENSION, HOW TO CHECK HIS/HER BLOOD PRESSURE, AND STRATEGIES TO USE TO CONTROL BLOOD PRESSURE SUCH MONITORING BP, SMOKING CESSATION, MANAGING BLOOD GLUCOSE RESULTS TO AN ACCEPTABLE RANGE, MONITORING WEIGHTS, ENGAGING IN PHYSICAL ACTIVITY AIMING FOR 150 MINUTES SPREAD THROUGHOUT THE WEEK.] Future Scheduled Test HOME HEALT H NURSE WILL ASSESS FOR COMPLICATIONS RELATED TO PULMONARY EMBOLISM (PE) AND INSTRUCT PATIENT/CAREGIVER ABOUT CAUSES, PRESCRIBED TREATMENT, AND SIGNS/SYMPTOMS TO REPORT. [code = HOME HEALTH NURSE WILL ASSESS FOR COMPLICATIONS RELATED TO PULMONARY EMBOLISM (PE) AND INSTRUCT PATIENT/CAREGIVER ABOUT CAUSES, PRESCRIBED TREATMENT, AND SIGNS/SYMPTOMS TO REPORT.] Future Scheduled Test HOME HEALT H NURSE WILL ASSESS FOR COMPLICATIONS RELATED TO DEEP VEIN THROMBOSIS (DVT) AND INSTRUCT PATIENT/CAREGIVER ABOUT PRECAUTIONS TO FOLLOW AND SIGNS/SYMPTOMS TO REPORT. [code = HOME HEALTH NURSE WILL ASSESS FOR COMPLICATIONS RELATED TO DEEP VEIN THROMBOSIS (DVT) AND INSTRUCT PATIENT/CAREGIVER ABOUT PRECAUTIONS TO FOLLOW AND SIGNS/SYMPTOMS TO REPORT.] Future Scheduled Test HOME HEALT H NURSE TO INSTRUCT PATIENT/CAREGIVER ABOUT GASTROESOPHAGEAL REFLUX, SIGNS AND SYMPTOMS OF WARNING SIGNS TO REPORT, AND MANAGEMENT OF THE ILLNESS. [code = HOME HEALTH NURSE TO INSTRUCT PATIENT/CAREGIVER ABOUT GASTROESOPHAGEAL REFLUX, SIGNS AND SYMPTOMS OF WARNING SIGNS TO REPORT, AND MANAGEMENT OF THE ILLNESS.] Future Scheduled Test HOME HEALT H NURSE WILL ASSESS FOR COMPLICATIONS RELATED TO ANEMIA AND INSTRUCT PATIENT/CAREGIVER ABOUT CAUSES, PRESCRIBED TREATMENT, AND SIGNS/SYMPTOMS TO REPORT. [code = HOME HEALTH NURSE WILL ASSESS FOR COMPLICATIONS RELATED TO ANEMIA AND INSTRUCT PATIENT/CAREGIVER ABOUT CAUSES, PRESCRIBED TREATMENT, AND SIGNS/SYMPTOMS TO REPORT.] Future Scheduled Test HOME HEALT H NURSE WILL ASSESS FOR COMPLICATIONS RELATED TO ANTICOAGULATION ANTIPLATELET USE AND INSTRUCT PATIENT/CAREGIVER ABOUT PRECAUTIONS TO FOLLOW AND SIGNS/SYMPTOMS TO REPORT. [code = HOME HEALTH NURSE WILL ASSESS FOR COMPLICATIONS RELATED TO ANTICOAGULATION ANTIPLATELET USE AND INSTRUCT PATIENT/CAREGIVER ABOUT PRECAUTIONS TO FOLLOW AND SIGNS/SYMPTOMS TO REPORT.] Future Scheduled Test SKILLED NU RSE TO INSTRUCT ON URINARY INCONTINENCE INCLUDING CAUSES AND MANAGEMENT STRATEGIES. [code = SKILLED NURSE TO INSTRUCT ON URINARY INCONTINENCE INCLUDING CAUSES AND MANAGEMENT STRATEGIES.] Future Scheduled Test SKILLED NU RSE TO ASSESS PATIENT WITH ANXIETY DISORDER AND TEACH SYMPTOMS OF ANXIETY. [code = SKILLED NURSE TO ASSESS PATIENT WITH ANXIETY DISORDER AND TEACH SYMPTOMS OF ANXIETY.] Future Scheduled Test SKILLED NU RSE TO OBSERVE AND ASSESS PATIENT WITH GENERALIZED DEPRESSION AND TEACH DEPRESSIVE SYMPTOMS. [code = SKILLED NURSE TO OBSERVE AND ASSESS PATIENT WITH GENERALIZED DEPRESSION AND TEACH DEPRESSIVE SYMPTOMS.] Goal 2024-01-16 Patient Goal - S OC 11/19/23: BE ABLE TO WALK AND GET AROUND BETTER Goal Provider Goal - PATIENT/CAREGIVER WILL DEMONSTRATE ABILITY TO SELF-MANAGE CARE OF FRACTURE EVIDENCED BY ABSENCE OF COMPLICATIONS, ADHERENCE TO ACTIVITY RESTRICTIONS, TREATMENT STRATEGIES, AND PRECAUTIONS, AND VERBALIZATION OF SIGNS/SYMPTOMS TO REPORT BY END OF HOME HEALTH SERVICES. Goal Provider Goal - A PLAN OF CARE WILL BE ESTABLISHED THAT MEETS ALL PATIENT'S SHELTER NEEDS AND COUNTER SIGNED BY PHYSICIAN. Goal Provider Goal - PATIENT WILL BE FREE OF FALLS AND HOSPITALIZATIONS THROUGHOUT EPISODE OF CARE. PATIENT/CAREGIVER WILL UNDERSTAND AND ADHERE TO ORDERED DIET. PATIENT/CAREGIVER WILL INDEPENDENTLY MANAGE MEDICATIONS, UNDERSTAND ANY CHANGES, SIDE EFFECTS TO REPORT BY DISCHARGE. PATIENT WILL BE FREE OF INFECTION AND UNDERSTAND MEASURES OF PREVENTION. PATIENT/CAREGIVER WILL COLLABORATE WITH SKILLED NURSE TO DEVELOP POC AT SOC AND ON AN ONGOING BASIS UPDATES ARE NEEDED. UNDERSTAND PROGRESS MADE/DISCHARGE PLANNING. ADDITIONAL ORDERS WILL BE RECEIVED FROM ALTERNATE PHYSICIANS IN A TIMELY MANNER. Goal Provider Goal - PATIENT/CAREGIVER WILL INDEPENDENTLY DEMONSTRATE HOW TO CHECK HIS/HER OWN BP AND VERBALIZE WHAT STRATEGIES CAN ASSIST TO CONTROL BLOOD PRESSURE. Goal Provider Goal - PATIENT/CAREGIVER WILL VERBALIZE UNDERSTANDING OF THE CAUSES OF PE, SIGNS/SYMPTOMS TO REPORT, AND ADHERENCE TO PRESCRIBED TREATMENT BY END OF HOME HEALTH SERVICES. Goal Provider Goal - PATIENT/CAREGIVER WILL VERBALIZE UNDERSTANDING OF THE CAUSES OF DVT, SIGNS/SYMPTOMS TO REPORT, AND ADHERENCE TO PRESCRIBED TREATMENT BY END OF HOME HEALTH SERVICES. Goal Provider Goal - PATIENT/CAREGIVER WILL INDEPENDENTLY VERBALIZE WHAT IS GERD, HOW TO MANAGE GERD AND WHEN TO REPORT WHEN TO REPORT WARNING SIGNS TO A NURSE, PHYSICIAN OR 911. Goal Provider Goal - PATIENT/CAREGIVER WILL VERBALIZE UNDERSTANDING OF THE CAUSES OF ANEMIA, SIGNS/SYMPTOMS TO REPORT, AND ADHERENCE TO PRESCRIBED TREATMENT BY END OF HOME HEALTH SERVICES. Goal Provider Goal - PATIENT/CAREGIVER WILL VERBALIZE UNDERSTANDING OF ANTICOAGULATION ANTIPLATELET COMPLICATIONS TO REPORT AND PRECAUTIONS TO FOLLOW BY END OF HOME HEALTH SERVICES. Goal Provider Goal - PATIENT/CAREGIVER WILL INDEPENDENTLY DEMONSTRATE STRATEGIES TO MANAGE INCONTINENCE AND PROBLEMS THAT CAN DEVELOP FROM BEING INCONTINENT. Goal Provider Goal - PATIENT/CAREGIVER WILL VERBALIZE UNDERSTANDING OF THE CONTRIBUTING FACTORS AND SYMPTOMS OF ANXIETY. Goal Provider Goal - PATIENT/CAREGIVER WILL VERBALIZE UNDERSTANDING OF THE CONTRIBUTING FACTORS AND SYMPTOMS OF DEPRESSION. Reason for Visit MINIMUM ASSIST WITH TRANSFER/AMBULATION/ADLS Encounters Start Date/Time End Date/Time Encounter Type Admission Type Attending [facility] Department Encounter ID Discharge Date Discharge Status Discharge Condition Discharge Reason Percent Goals Met 2023-11-19 00:00:00 2024-01-16 00:00:00 Outpatient [facility] [id number] 1821-07-26 00:00:00 DISCHARGE TO HOME OR SELF CARE MINIMUM ASSIST WITH TRANSFER/A MBULATION/ ADLS GOALS MET 91.67
--- OUTSIDE RECORDS SUMMARY | 2024-06-09 02:34 | XMS_ITS ---
Author Organization [facility] Address [address] [place], [place] [address] Care Team Providers Care Public Relations Director Name Role Phone CarsonishmaelPierre Unavailable Unavailable GENE GUZMAN Unavailable [phone] REASON FOR VISIT *General care Medications Medication SIG (Take, Route, Fr equency, Duration) Notes Start Date End Date Status Ketoconazole 2 % 1 application to aff ected nails Once a day for 90 days 03/11/2023 03/05/2024 Active Vital Signs BMI 48 kg/m2 12/18/2023 Height 63.00 in 12/18/2023 Weight 271 lbs 12/18/2023 Height-cm 160.02 cm 12/18/2023 Weight-kg 122.92 kg 12/18/2023 Encounters Encounter Location Date Provider Diagnosis [address] [id number] 12/18/2023 GENE GUZMAN Other hammer toe(s) (acquired), right foot M20.41 ; Tinea unguium B35.1 ; Other hammer toe(s) (acquired), left foot M20.42 ; Pain in right toe(s) M79.674 ; Pain in left toe(s) M79.675 and 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 The patient was given education about shoe recommendations specific for the condition. The patient was educated about custom orthotics and how appropriate shoes and orthotics can prevent further worsening of the deformity. The patient was educated about how bad shoe habits can worsen the condition. NSAIDS, P.T., injections and other conservative treatments were discussed. Both surgical and non surgical treatments were discussed, but conservative options were emphasized. 12/18/2023 Tinea unguium (ICD-10 - B35.1) Aseptic debridement of elongated thickened nails x 10 using sterile nippers, nails were debrided in length and thickness by 30% utilizing a nail nipper without incident. The patient was educated regarding all treatment options that include topical and oral antifungal treatments. I discussed the options of taking a sample of the nail to confirm diagnosis. Nail clippings were not sent for pathology analysis. The patient was educated why and how the fungal infection evolved in their feet and the patient was given information regarding how to prevent further infection. The patient was told to keep feet dry and change socks. The patient was told to be careful with old shoes and excessive sweating. The patient was educated regarding both OTC and prescription treatments. 12/18/2023 Other hammer toe(s) (acquired), left foot (ICD-10 - M20.42) 12/18/2023 Pain in right toe(s) (ICD-10 - M79.674) 12/18/2023 Pain in left toe(s) (ICD-10 - M79.675) 12/18/2023 Unspecified atherosclerosis of [place] arteries of extremities, bilateral legs (ICD-10 - I70.203) Patient educated on risks and aggravating factors of PVD, including conservative treatment options such as a diet and exercise regimen to aid in slowing progression of vascular disease Plan Of Treatment Treatment Notes Assessment Notes Other hammer toe(s) (acquired), right fo ot The patient was educated regarding how to mechanically stabilize their deformity. The patient was given education about shoe recommendations specific for the condition. The patient was educated about custom orthotics and how appropriate shoes and orthotics can prevent further worsening of the deformity. The patient was educated about how bad shoe habits can worsen the condition. NSAIDS, P.T., injections and other conservative treatments were discussed. Both surgical and non surgical treatments were discussed, but conservative options were emphasized. Tinea unguium Aseptic debridement of elongated thickened nails x 10 using sterile nippers, nails were debrided in length and thickness by 30% utilizing a nail nipper without incident. The patient was educated regarding all treatment options that include topical and oral antifungal treatments. I discussed the options of taking a sample of the nail to confirm diagnosis. Nail clippings were not sent for pathology analysis. The patient was educated why and how the fungal infection evolved in their feet and the patient was given information regarding how to prevent further infection. The patient was told to keep feet dry and change socks. The patient was told to be careful with old shoes and excessive sweating. The patient was educated regarding both OTC and prescription treatments. Unspecified atherosclerosis of [place] arteries of extremities, bilateral legs Patient educated on risks and aggravating factors of PVD, including conservative treatment options such as a diet and exercise regimen to aid in slowing progression of vascular disease Next Appt Details Follow Up: 3 Months, Reason: Provider Name:GENE GUZMAN, 07/01/2024 10:00:00 AM, [address], [place], [id number], Progress Notes * FREDA CHILDS MDOB: [birth year] (83 yo F)Acc No.[id number]:12/18/2023 Patient:?FREDA CHILDS Provider:?GENE GUZMAN :1940???Age:83 Y???Sex:Female D ate:12/18/2023 Address:[address] [place], [place] [id number] Subjective: * Chief Complaints: * ???1. *General care. * HPI: ???HPI:?General care?Patient presents to the office for at risk foot care. Patient states that their nails are thickened, elongated and painful. Patient states that it is aggravated by shoe gear. Onset is gradual. Patient denies being diabetic., Patient is taking prescription blood thinners., Date last seen by Dr. Acuna was 12/16/23. Patient states she was just released from 16day stay at hospital due to fall, and fractured her upper back as well as left ribs. MA:mls.? * ROS:?General / Constitutional:?Patient denies?weakness.?Respiratory:?Patient denies?chronic cough, shortness of breath, sputum production.?Cardiovascular:?Patient denies?chest pain, history of [place], irregular heartbeat.?Musculoskeletal:?Patient complains of?hammertoes.?Peripheral Vascular:?Patient denies?blanching of skin, cold extremities, decreased sensation in extremities.?Skin:?Patient complains of?fungal nails, nail changes.?Neurologic:?Patient denies?dizziness, gait abnormality, headache.? * Medical History:? * Family History:?Father: PRN - Father: :: Stroke,,known absent .?Mother: PRN - Mother: :: Cancer,,known absent .?Sister: SIB - Sister: :: Diabetes,,known absent .? * Social History:?Migrated Social History:?Migrated Social History: History of tobacco use : , Smoking Status : Never used tobacco. * Medications:?Taking Ketocona zole 2 % Cream 1 application to affected nails Once a day , stop date 03/05/2024 Objective: * Vitals:?Wt: 271 lbs, Wt-k.92 kg, Ht: 63.00 in, Ht-cm: 160.02 cm, BMI: 48 Index, Body Surface Area: 2.34. * Examination: ???Physical Examination: ???Vascular: Dorsalis Pedis pulse noted at 1/4 right foot and 1/4 left foot and Posterior Tibial pulse noted at 1/4 right foot and 1/4 left foot, Capillary refill times noted to be less than three seconds x ten, Temperature gradient noted to be warm to cool to bilateral foot, pedal hair present to bilateral foot and no varicosities are noted ?Dermatologic: there are no open lesions, no signs of active clinical infection, no erythema noted, no ecchymoses, nails are elongated thickened and dystrophic with subungual debris x ten ?Musculoskeletal: there is pain to palpation onto nail plate x ten, no calf pain noted bilaterally, arch height noted at 2/5 non-weight bearing bilaterally, first metatarsophalangeal joint range of motion 30 deg non-weight bearing bilaterally, flexible fifth digit hammer toe deformity noted to bilateral foot reducible with kelikian push up test ?Neurology: protective sensation intact to light touch bilateral digits one through five, vibratory sensation intact to first metatarsophalangeal joint bilaterally. Assessment: * Assessment: 1.?Tinea unguium - B35.1 (Pr imary)?2.?Other hammer toe(s) (acquired), right foot - M20.41?3.?Other hammer toe(s) (acquired), left foot - M20.42?4.?Pain in right toe(s) - M79.674?5.?Pain in left toe(s) - M79.675?6.?Unspecified atherosclerosis of [place] arteries of extremities, bilateral legs - I70.203? Plan: * Treatment: 2.?Other hammer toe(s) (acqu ired), right foot? Notes: The patient was educated regarding how to mechanically stabilize their deformity. The patient was given education about shoe recommendations specific for the condition. The patient was educated about custom orthotics and how appropriate shoes and orthotics can prevent further worsening of the deformity. The patient was educated about how bad shoe habits can worsen the condition. NSAIDS, P.T., injections and other conservative treatments were discussed. Both surgical and non surgical treatments were discussed, but conservative options were emphasized. ?? 3.?Unspecified atheroscleros is of [place] arteries of extremities, bilateral legs? Notes: Patient educated on risks and aggravating factors of PVD, including conservative treatment options such as a diet and exercise regimen to aid in slowing progression of vascular disease ?? * Procedure Codes:?05402 DEBRI DE NAIL, 6 OR MORE, Modifiers: Q8 * Follow Up:?3 Months * Billing Information: * Visit Code:? * Procedure Codes:? 41963 DEBRIDE NAIL, 6 OR MORE. Modifiers: Q8 * Sign off status: Completed true * Provider:MADHURI GUZMAN Date:?12/18/2023 Generated for Natasha bledsoe/Jose Francisco/Gavin on:?06/09/2024 02:33 AM HSE MANAGER History and Physical Notes * HPI (History of Present Illness) Category Sub-Category Detail Notes Category Not es HPI General care Patient presents to the office for at risk foot care. Patient states that their nails are thickened, elongated and painful. Patient states that it is aggravated by shoe gear. Onset is gradual. Patient denies being diabetic., Patient is taking prescription blood thinners., Date last seen by Dr. Acuna was 12/16/23. Patient states she was just released from 16day stay at hospital due to fall, and fractured her upper back as well as left ribs. MA:mls Examination Category Sub-Category Detail Notes Category Not es Physical Examination Vascular: Dorsalis Pedis pulse noted at 1/4 right foot and 1/4 left foot and Posterior Tibial pulse noted at 1/4 right foot and 1/4 left foot, Capillary refill times noted to be less than three seconds x ten, Temperature gradient noted to be warm to cool to bilateral foot, pedal hair present to bilateral foot and no varicosities are noted Dermatologic: there are no open lesions, no signs of active clinical infection, no erythema noted, no ecchymoses, nails are elongated thickened and dystrophic with subungual debris x ten Musculoskeletal: there is pain to palpation onto nail plate x ten, no calf pain noted bilaterally, arch height noted at 2/5 non-weight bearing bilaterally, first metatarsophalangeal joint range of motion 30 deg non-weight bearing bilaterally, flexible fifth digit hammer toe deformity noted to bilateral foot reducible with kelikian push up test Neurology: protective sensation intact to light touch bilateral digits one through five, vibratory sensation intact to first metatarsophalangeal joint bilaterally
--- OUTSIDE RECORDS SUMMARY | 2024-06-09 02:34 | XMS_ITS | Patient Health Record ---
Author Organization [facility] Address [address] [place], [place] [address] Care Team Providers Care Spinning Mule Tender Name Role Phone Pierre Acuna Unavailable Unavailable THOMAS GENE Unavailable [phone] Allergies No Known Allergies Reason For Referral No Information Immunizations Vaccine Route Administration Date Status Comme nts Influenza, high dose seasonal Unknown 03/28/2023 Admini stered Vital Signs Height-cm 160.02 cm 12/18/2023 Weight-kg 122.92 kg 12/18/2023 Height 63.00 in 12/18/2023 Weight 271 lbs 12/18/2023 BMI 48 kg/m2 12/18/2023 Encounters Encounter Location Date Provider Diagnosis [address] [id number] 08/07/2023 GENE GUZMAN Other hammer toe(s) (acquired), right foot M20.41 ; Tinea unguium B35.1 ; Other hammer toe(s) (acquired), left foot M20.42 ; Pain in right toe(s) M79.674 ; Pain in left toe(s) M79.675 and Unspecified atherosclerosis of [place] arteries of extremities, bilateral legs I70.[address] [id number] 10/09/2023 GENE GUZMAN Other hammer toe(s) (acquired), right foot M20.41 ; Tinea unguium B35.1 ; Other hammer toe(s) (acquired), left foot M20.42 ; Pain in right toe(s) M79.674 ; Pain in left toe(s) M79.675 and Unspecified atherosclerosis of [place] arteries of extremities, bilateral legs I70.203 [facility] [address] [place], [place] [id number] 12/18/2023 GENE GARCÍAGURPREET Other hammer toe(s) (acquired), right foot M20.41 ; Tinea unguium B35.1 ; Other hammer toe(s) (acquired), left foot M20.42 ; Pain in right toe(s) M79.674 ; Pain in left toe(s) M79.675 and Unspecified atherosclerosis of [place] arteries of extremities, bilateral legs I70.[address] [id number] 02/19/2024 GENE GARCÍAGURPREET Other hammer toe(s) (acquired), right foot M20.41 ; Tinea unguium B35.1 ; Other hammer toe(s) (acquired), left foot M20.42 ; Pain in right toe(s) M79.674 ; Pain in left toe(s) M79.675 and Unspecified atherosclerosis of [place] arteries of extremities, bilateral legs I70.[address] [id number] 04/22/2024 GENE GARCÍAGURPREET Other hammer toe(s) (acquired), right foot M20.41 ; Tinea unguium B35.1 ; Other hammer toe(s) (acquired), left foot M20.42 ; Pain in right toe(s) M79.674 ; Pain in left toe(s) M79.675 and Unspecified atherosclerosis of [place] arteries of extremities, bilateral legs I70.203 Assessments Encounter Date Diagnosis (ICD Code) Assessment Notes Treatment Notes Treatment Clinical Notes Section Notes 08/07/2023 Tinea unguium (ICD-10 - B35.1) Aseptic debridement [...] educated regarding both OTC and prescription treatments. 08/07/2023 Other hammer toe(s) (acquired), right foot (ICD-10 [...] were discussed, but conservative options were emphasized. 10/09/2023 Other hammer toe(s) (acquired), right foot (ICD-10 [...] were discussed, but conservative options were emphasized. 10/09/2023 Tinea unguium (ICD-10 - B35.1) Aseptic debridement [...] regarding both OTC and prescription treatments. 12/18/2023 Tinea unguium (ICD-10 - B35.1) Aseptic [...] prescription treatments. 12/18/2023 Other hammer toe(s) (acquired), right foot [...] were discussed, but conservative options were emphasized. 02/19/2024 Other hammer toe(s) (acquired), right foot (ICD-10 [...] were discussed, but conservative options were emphasized. 02/19/2024 Tinea unguium (ICD-10 - B35.1) Aseptic debridement [...] educated regarding both OTC and prescription treatments. 04/22/2024 Tinea unguium (ICD-10 - B35.1) Aseptic debridement [...] educated regarding both OTC and prescription treatments. 04/22/2024 Other hammer toe(s) (acquired), right foot (ICD-10 [...] were discussed, but conservative options were emphasized. 04/22/2024 Other hammer toe(s) (acquired), left foot (ICD-10 - M20.42) 02/19/2024 Other hammer toe(s) (acquired), left foot (ICD-10 - M20.42) 12/18/2023 Other hammer toe(s) (acquired), left foot (ICD-10 - M20.42) 10/09/2023 Other hammer toe(s) (acquired), left foot (ICD-10 - M20.42) 08/07/2023 Other hammer toe(s) (acquired), left foot (ICD-10 - M20.42) 08/07/2023 Pain in right toe(s) (ICD-10 - M79.674) 10/09/2023 Pain in right toe(s) (ICD-10 - M79.674) 12/18/2023 Pain in right toe(s) (ICD-10 - M79.674) 02/19/2024 Pain in right toe(s) (ICD-10 - M79.674) 04/22/2024 Pain in right toe(s) (ICD-10 - M79.674) 04/22/2024 Pain in left toe(s) (ICD-10 - M79.675) 02/19/2024 Pain in left toe(s) (ICD-10 - M79.675) 12/18/2023 Pain in left toe(s) (ICD-10 - M79.675) 10/09/2023 Pain in left toe(s) (ICD-10 - M79.675) 08/07/2023 Pain in left toe(s) (ICD-10 - M79.675) 08/07/2023 Unspecified atherosclerosis of [place] arteries of extremities, bilateral legs (ICD-10 - I70.203) Patient educated on risks and aggravating factors of PVD, including conservative treatment options such as a diet and exercise regimen to aid in slowing progression of vascular disease 12/18/2023 Unspecified atherosclerosis of [place] arteries of extremities, bilateral legs (ICD-10 - I70.203) Patient educated on risks and aggravating factors of PVD, including conservative treatment options such as a diet and exercise regimen to aid in slowing progression of vascular disease 10/09/2023 Unspecified atherosclerosis of [place] arteries of extremities, bilateral legs (ICD-10 - I70.203) Patient educated on risks and aggravating factors of PVD, including conservative treatment options such as a diet and exercise regimen to aid in slowing progression of vascular disease 04/22/2024 Unspecified atherosclerosis of [place] arteries of extremities, bilateral legs (ICD-10 - I70.203) Patient educated on risks and aggravating factors of PVD, including conservative treatment options such as a diet and exercise regimen to aid in slowing progression of vascular disease 02/19/2024 Unspecified atherosclerosis of [place] arteries of extremities, bilateral legs (ICD-10 - I70.203) Patient educated on risks and aggravating factors of PVD, including conservative treatment options such as a diet and exercise regimen to aid in slowing progression of vascular disease Plan Of Treatment Next Appt Details Provider Name:GENE GUZMAN, 07/01/2024 10:00:00 AM, [address], [place], [id number], Insurance Providers Payer Name Payer Address Payer Phone Subscriber Number Group Number Insured Name Patient Relationship to Insured Coverage Start Date Coverage End Date Medicare Part B [facility] [address] [place] [phone] [id number] FREDA CHILDS Self - patient is the insured [employer] [address] [place] [id number] FREDA CHILDS Self - patient is the insured
--- OUTSIDE RECORDS SUMMARY | 2024-06-09 02:34 | XMS_ITS ---
Author Organization [facility] Address [address] [place], [place] [address] Care Team Providers Care Flamer Sealer Name Role Phone Yissel Acunash Unavailable Unavailable GENE GUZMAN Unavailable [phone] REASON FOR VISIT *General care Medications Medication SIG (Take, Route, Fr equency, Duration) Notes Start Date End Date Status Ketoconazole 2 % 1 application to aff ected nails Once a day for 90 days 03/11/2023 03/05/2024 Active Encounters Encounter Location Date Provider Diagnosis [address] [id number] 02/19/2024 GENE GUZMAN Other hammer toe(s) (acquired), right foot M20.41 ; Tinea unguium B35.1 ; Other hammer toe(s) (acquired), left foot M20.42 ; Pain in right toe(s) M79.674 ; Pain in left toe(s) M79.675 and Unspecified atherosclerosis of [place] arteries of extremities, bilateral legs I70.203 Assessments Encounter Date Diagnosis (ICD Code) Assessment Notes Treatment Notes Treatment Clinical Notes Section Notes 02/19/2024 Other hammer toe(s) (acquired), right foot [...] educated regarding both OTC and prescription treatments. 02/19/2024 Other hammer toe(s) (acquired), left foot (ICD-10 - M20.42) 02/19/2024 Pain in right toe(s) (ICD-10 - M79.674) 02/19/2024 Pain in left toe(s) (ICD-10 - M79.675) 02/19/2024 Unspecified atherosclerosis of hus[place] arteries of [...] OTC and prescription treatments. Unspecified atherosclerosis of [place] arteries of extremities, bilateral legs Patient educated on risks and aggravating factors of PVD, including conservative treatment options such as a diet and exercise regimen to aid in slowing progression of vascular disease Next Appt Details Follow Up: 3 Months, Reason: Provider Name:GENE GUZMAN, 07/01/2024 10:00:00 AM, [address] [place], [place], [id number], Progress Notes * FREDA CHILDS MDOB: [birth year] (83 yo F)Acc No.[id number]:02/19/2024 Patient:?FREDA CHILDS Provider:?GENE GUZMAN :1940???Age:83 Y???Sex:Female D ate:02/19/2024 Address:[address] [place], [place] [id number] Subjective: * Chief Complaints: * ???1. *General care. * HPI: ???HPI:?General care?Patient presents to the office for at risk foot care. Patient states that their nails are thickened, elongated and painful. Patient states that it is aggravated by shoe gear. Onset is gradual. Patient denies being diabetic., Patient is taking prescription blood thinners., Date last seen by Dr. Acuna was 11/2023., Initials [facility].? * ROS:?General / Constitutional:?Patient denies?weakness.?Respiratory:?Patient denies?chronic cough, shortness of breath, sputum production.?Cardiovascular:?Patient denies?chest pain, history of [place], irregular heartbeat.?Musculoskeletal:?Patient complains of?hammertoes.?Peripheral Vascular:?Patient denies?blanching of skin, cold extremities, decreased sensation in extremities.?Skin:?Patient complains of?fungal nails, nail changes.?Neurologic:?Patient denies?dizziness, gait abnormality, headache.? * Medical History:? * Family History:?Father: PRN - Father: :: Stroke,,known absent .?Mother: PRN - Mother: :: Cancer,,known absent .?Sister: SIB - Sister: :: Diabetes,,known absent .? * Medications:?Taking Ketocona zole 2 % Cream 1 application to affected nails Once a day , stop date 03/05/2024 Objective: * Examination: ???Physical Examination: ???Vascular: Dorsalis Pedis [...] in left toe(s) - M79.675?6.?Unspecified atherosclerosis of [place] arteries of extremities, bilateral legs - I70.203? [...] were emphasized. ?? 3.?Unspecified atheroscleros is of [place] arteries of extremities, bilateral legs? Notes: Patient educated on risks and aggravating factors of PVD, including conservative treatment options such as a diet and exercise regimen to aid in slowing progression of vascular disease ?? * Procedure Codes:?36396 DEBRI DE NAIL, 6 OR MORE, Modifiers: Q8 * Follow Up:?3 Months * Billing Information: * Visit Code:? * Procedure Codes:? 13625 DEBRIDE NAIL, 6 OR MORE. Modifiers: Q8 * Sign off status: Completed true * Provider:MADHURI GUZMAN Date:?02/19/2024 Generated for Natasha bledsoe/Jose Francisco/Gavin on:?06/09/2024 02:33 AM MITTEN STITCHER History and Physical Notes * HPI (History [...] Date last seen by Dr. Acuna was 11/2023., Initials [facility] Examination Category Sub-Category Detail Notes Category Not [...]
--- OUTSIDE RECORDS SUMMARY | 2024-06-09 05:24 | XMS_ITS | Patient Health Summary ---
Author Organization [facility] [employer] Address [address] [place] [address] Care Team Providers Care Palletiser Operator Name Role Phone Pierre Acuna Primary Care Provider [phone] Note from [facility],non-owned Affiliates and Associated Physician Practices is amultiple site organization consisting of ambulatory clinics and hospital sitesin [place], [place], [place] and [place]. This disclosure is being madepursuant to the Care Everywhere program and may not contain all information available regarding this patient. Last updated 18.[facility] [employer] Allergies * Cristian Inhibitors(Cough) * Clarithromycin(Unknown) * [...] tablet by mouth once daily * HYDROcodone-acetaminophen (Trufant) 10-325 MG tablet(Started 11/05/2023) Take 1 (one) [...] PATCH 12 HOURS LATER. * nystatin (Mycostatin) [id number] UNIT/GM powder(Started 11/05/2023) APPLY TO AFFECTED AREA [...] and heating? Not hard at all 11/03/2023 [facility] [place] of Occupat ional Health - Occupational Stress [...] place to sleep or slept in a intermediate (including now)? No 11/03/2023 Sex and Gender [...] AM CDT) Unit Description AS1 LR PRBC [facility]LOOD [facility] Unit ABO O [facility]OD [facility] Unit Rh POS [facility]OD [facility] Product Number R02 [facility] B LOOD BANK LAB Unit Donor # [id number] [facility] Unit Status released [facility] BLOO D BANK LAB Product Code [id number] [facility] BLO OD BANK LAB Blood Type Barcode 5100 [facility] Expiration Date S BLOOD BANK LAB Unit Description AS1 LR PRBC [facility]LOOD [facility] Unit ABO O [facility] BLOOD [facility] Unit Rh POS [facility] BLOOD [facility] Product Number R02 [facility] B LOOD BANK LAB Unit Donor # [id number] [facility] BLOOD [facility] Unit Status released [facility] BLOO D BANK LAB Product Code [id number] [facility] BLO OD BANK LAB Blood Type Barcode 5100 [facility] BLOOD [facility] LAB Expiration Date S BLOOD BANK LAB Blood Bank BLOOD SPECIMEN / Unknown 11/01/2023 8:07 PM CDT Gabriel Hill MD LAB - BLOOD BANK ORD ERABLES [facility] LAB [address] [place] [address], [facility] [phone] * XR CHEST 1VW PORTABLE (11/04/2023 12:54 PM CDT) Only the most recent of2 resultswithin the time period is included. Anatomical Region Laterality Modality Chest Radiographic Anahy ging 11/04/2023 1:34 PM CDT Narrative 11/05/2023 11:04 AM CDT PROCEDURE: ??XR CHEST 1VW PORTABLE, DATE/TIME OF EXAM: ??11/04/2023 12:55 PM, LOCATION ??[facility] INDICATION: S22.42XA: Closed fracture of multiple ribs [...] Report dictated by Darrion Linares MD (residential team leader). Rl Jacques MD have personally reviewed and interpreted this examination/study. > Interpreting Provider: Rl Marrero MD on 11/05/2023 11:04 AM Procedure Note Rl Marrero MD - 11/05/2023 PROCEDURE: XR CHEST 1VW PORTABLE, DATE/TIME OF EXAM: 11/04/2023 12:55PM, LOCATION [facility] INDICATION: S22.42XA: Closed fracture of multiple ribs [...] Report dictated by Darrion Linares MD (residential team leader). Rl Jacques MD have personally reviewed and interpreted this examination/study. > Interpreting Provider: Rl Marrero MD on 11/05/2023 11:04 AM Kathryn Quach MD DIAGNOSTIC IMAGING O RDERABLES * (ABNORMAL) CBC W/O DIFFERENTIAL (11/04/2023 1:56 AM CDT) Only the most recent of3 resultswithin the time period is included. Pathologist [facility] WBC 6.2 4.0 - 10.7 x10E9/L 11/04/2023 2:14 AM [facility] RBC Count 3.15(L) 3.90 - 5.20 x10E12/L 11/04/2023 2:14 AM [facility] Hemoglobin 11.7(L) 11.9 - 15.8 g/dL 11/04/2023 2:14 AM [facility] Hematocrit 32.7(L) 34.8 - 46.1 % 11/04/2023 2:14 AM [facility] MCV 103.8(H) 80.0 - 98.0 fL 11/04/2023 2:14 AM [facility] MCH 37.1(H) 26.7 - 33.6 pg 11/04/2023 2:14 AM [facility] MCHC 35.8 31.7 - 36.3 g/dL 11/04/2023 2:14 AM [facility] RDW-CV 15.5(H) 11.3 - 14.8 % 11/04/2023 2:14 AM [facility] Platelet Count 205 150 - 420 x10E9/L 11/04/2023 2:14 AM [facility] MPV 8.6 7.8 - 11.4 fL 11/04/2023 2:14 AM [facility] Blood BLOOD SPECIMEN / Unknown Lab Venipuncture / Unknown 11/04/2023 1:56 AM CDT 11/04/2023 2:09 AM CDT Gabriel Hill MD LAB - HEMATOLOGY ORD ERABLES [facility] [address] [place] [address], [facility] [phone] * (ABNORMAL) BASIC METABOLIC PANEL (CALCIUM TOTAL) (11/04/2023 1:56 AM CDT) Only the most recent of4 resultswithin the time period is included. Pathologist [facility] BUN 11 7 - 26 mg/dL 11/04/2023 2:37 AM [facility] Creatinine 0.60 0.56 - 0.96 mg/dL 11/04/2023 2:37 AM [facility] Sodium 140 136 - 145 mmol/L 11/04/2023 2:37 AM [facility] Potassium 3.7 3.5 - 4.5 mmol/L 11/04/2023 2:37 AM [facility] Chloride 108(H) 98 - 107 mmol/L 11/04/2023 2:37 AM [facility] CO2 24 22 - 29 mmol/L 11/04/2023 2:37 AM [facility] Glucose 103 70 - 115 mg/dL 11/04/2023 2:37 AM [facility] Calcium 8.8 8.4 - 10.2 mg/dL 11/04/2023 2:37 AM [facility] Anion Gap 8 6 - 16 11/04/2023 2:37 AM [facility] BUN/Creatinine Ratio 18 7 - 23 11/04/2023 2:37 AM [facility] Osmolality Calculated 290 275 - 295 mOsm/kg 11/04/2023 2:37 AM [facility] eGFR by CKD-EPI 89(L) >=90 mL/min/1.7 3 m2 11/04/2023 2:37 AM [facility] Blood BLOOD SPECIMEN / Unknown Lab Venipuncture / Unknown 11/04/2023 1:56 AM CDT 11/04/2023 2:09 AM T Gabriel Hill MD LAB - CHEMISTRY MARIA INES HARTMANN [facility] Organization Address City/State/ZIP Co de Phone Number [facility] [address] [place] [address], [facility] [phone] * PHOSPHORUS BLOOD (11/04/2023 1:56 AM CDT) Only the most recent of3 resultswithin the time period is included. Phosphorus 3.2 2.9 - 5.1 mg/dL 11/04/2023 2:37 AM [facility] Blood BLOOD SPECIMEN / Unknown Lab Venipuncture / Unknown 11/04/2023 1:56 AM CDT 11/04/2023 2:09 AM CDT Gabriel Hill MD LAB - CHEMISTRY MARIA INES HARTMANN Performing Organization Address City/[facility]/ZIP Co de Phone Number [facility] [address] [place] [address], [place] [phone] * MAGNESIUM BLOOD (11/04/2023 1:56 AM CDT) Only the most recent of3 resultswithin the time period is included. Magnesium 1.8 1.6 - 2.6 mg/dL 11/04/2023 2:37 AM CDT [facility] Blood BLOOD SPECIMEN / Unknown Lab Venipuncture / Unknown 11/04/2023 1:56 AM CDT 11/04/2023 2:09 AM CDT Gabriel Hill MD LAB - CHEMISTRY MARIA INES HARTMANN Performing Organization Address City/[facility]/ZIP Co de Phone Number [facility] [address] [place] [address], [place] [phone] * BLOOD TYPE VERIFICATION (11/02/2023 10:36 AM CDT) ABO Rh O POS 11/02/2023 11:20 AM CDT [facility] BLOOD [facility] LAB Blood Bank BLOOD SPECIMEN / Unknown Venipuncture / Unknown 11/02/2023 10:36 AM CDT 11/02/2023 10:45 AM CDT Kathryn Quach MD LAB - BLOOD BANK ROSMERY SAAB [facility]OD [facility] LAB [address] [place] [address], [place] [phone] * TROPONIN-I HIGH SENSITIVE REFLEX 1HOUR (11/02/2023 1:27 AM CDT) Troponin I High Sensitive 6 <=14 ng/L 11/02/2023 2:06 AM CDT [facility] LABORATORY [facility] Delta Troponin I HS 11/02/2023 2:06 AM [facility] Comment:Delta value intentio mayito not calculated. Baseline to 1 hour specimen collection interval exceeded. Blood BLOOD SPECIMEN / Unknown Venipuncture / Unknown 11/02/2023 1:27 AM CDT 11/02/2023 1:34 AM CDT Mckay Church MD LAB - CHEMISTRY MARIA INES HARTMANN [facility] Organization Address City/State/ZIP Co de Phone Number [facility] [address] [place] [address], [facility] [phone] * (ABNORMAL) URINALYSIS W/MICROSCOPIC NO CULTURE (11/02/2023 1:27 AM CDT) Color UA Yellow Straw, Yellow 11/02/2023 1:41 AM [facility] Clarity UA Clear Clear 11/02/2023 1:41 AM [facility] Specific Carlos UA 1.044(H) 1.005 - 1.030 11/02/2023 1:41 AM [facility] pH UA 5.0 5.0 - 8.0 pH 11/02/2023 1:41 AM [facility] Protein UA Negative Negative 11/02/2023 1:41 AM [facility] Glucose UA Negative Negative 11/02/2023 1:41 AM [facility] Ketone UA Negative Negative 11/02/2023 1:41 AM [facility] Bilirubin UA Negative Negative 11/02/2023 1:41 AM [facility] Blood UA 3+(A) Negative 11/02/2023 1:41 AM [facility] Nitrite UA Negative Negative 11/02/2023 1:41 AM [facility] Leukocyte Esterase Negative Negative 11/02/2023 1:41 AM [facility] Urobilinogen UA Negative Negative mg/dL 11/02/2023 1:41 AM [facility] RBC UA 0-2 None Seen, 0-2, 3-5 /HPF 11/02/2023 1:41 AM [facility] WBC UA 0-5 None Seen, 0-5 /HPF 11/02/2023 1:41 AM [facility] Bacteria UA 1+(A) None /HPF 11/02/2023 1:41 AM [facility] Squamous Epithelial Cells UA None Seen None Seen, 0-2, 3-5 /HPF 11/02/2023 1:41 AM [facility] Mucus UA 1+ /LPF 11/02/2023 1:41 AM [facility] Urine URINE SPECIMEN OBTAINED BY CLEAN CATCH PROCEDURE / Unknown Collection / Unknown 11/02/2023 1:27 AM CDT 11/02/2023 1:32 AM [facility] Narrative [facility] - 11/02/2023 1:41 AM T Kathryn Quach MD LAB - URINALYSIS ORD ERABLES [facility] [address] [place] [address], [facility] [phone] * (ABNORMAL) URINE DRUG SCREEN IMMUNOASSAY (11/02/2023 1:27 AM [facility]) Pathologist [facility] Amphetamines Screen Urine Negative Negative : < 1000 ng/mL 11/02/2023 1:54 AM [facility] Barbiturates Screen Urine Negative Negative : < 200 ng/mL 11/02/2023 1:54 AM [facility] Benzodiazepine Screen Urine Negative Negative : < 200 ng/mL 11/02/2023 1:54 AM [facility] Opiates Urine Positive(A) Negative : < 300 ng/mL 11/02/2023 1:54 AM [facility] Comment:Positive urine opiat e screening results should be confirmed by another generally accepted non-immunological method such as gas chromatography or mass spectrometry. Cocaine Metabolites Urine Negative Negative : < 300 ng/mL 11/02/2023 1:54 AM [facility] Phencyclidine Screen Urine Negative Negative : < 25 ng/ml 11/02/2023 1:54 AM [facility] Cannabinoids Screen Urine Negative Negative : <50 ng/mL 11/02/2023 1:54 AM [facility] Methadone Screen Urine Negative Negative : < 300 ng/mL 11/02/2023 1:54 AM CDT [facility] Fentanyl Screen Urine Negative Negative : <1.5 ng/mL 11/02/2023 1:54 AM CDT [facility] Urine URINE / Unknown Collection / Unknown 11/02/2023 1:27 AM CDT 11/02/2023 1:32 AM CDT Narrative [facility] - 11/02/2023 1:54 AM CDT The Urine Toxicology Screening Panel does not screen for Propoxyphene, Meprobamate, Carisoprodol, Trazodone, ncro-ibg-ukyenwt medications and/or volatiles (Acetone, Isopropanol, Methanol or Ethylene Glycol). Ethanol, Salicylate, Acetaminophen, Tricyclic Antidepressants and several therapeutic drugs may be individually assayed in serum or plasma specimen. Toxicology testing by the [facility] is an aid to medical diagnosis and treatment of patients. No documented chain of custody was maintained. Results are intended to be used for clinical purposes only. ? Kathryn Quach MD LAB - URINE CHEMISTR Y ORDERABLES Performing Organization Address [facility]/State/ZIP Co de Phone Number [facility] [address] [place] [address], [facility] [phone] * EKG 12-LEAD (11/01/2023 8:04 PM CDT) Ventricular Rate 69 BPM [facility] MUSE QRS Duration ms 84 ms [facility] MUSE Q-T Interval ms 414 ms [facility] MUSE QTC Calculation (Bezet) 443 ms [facility] MUSE Calculated R [place] 47 degrees [facility] MUSE Calculated T [place] 18 degrees [facility] MUSE Interpretation EKG NORMAL SINUS RHYTHM Normal EKG NO PREVIOUS ECGS AVAILABLE Confirmed by DORIS ??, VERNELL ([id number]) on 11/06/2023 9:10:03 AM [facility] MUSE 11/01/2023 8:04 PM CDT 11/06/2023 9:10 AM CDT Mckay Church MD ECG ORDERABLES Performing Organization Address City/[facility]/ZIP Co de Phone Number [facility] MUSE * TROPONIN-I HIGH SENSITIVE BASELINE + 1HR (11/01/2023 7:57 PM CDT) [facility] Troponin I High Sensitive 4 <=14 ng/L 11/01/2023 8:43 PM CDT [facility] Blood BLOOD SPECIMEN / Unknown Venipuncture / Unknown 11/01/2023 7:57 PM CDT 11/01/2023 8:00 PM CDT Mckay Church MD LAB - CHEMISTRY ORDE MARY KATE Performing Organization Address City/[facility]/ZIP Co de Phone Number [facility] [address] [place] [phone], [facility] [phone] * (ABNORMAL) TEG 6 GLOBAL HEMOSTASIS W/ LYSIS (11/01/2023 7:56 PM CDT) Pathologist [facility] Citrated Kaolin R (Reaction Time) 3.4(L) 4.6 - 9.1 min 11/01/2023 9:12 PM CDT [facility] Comment:CK R result below no rmal range. Consistent with hypercoagulable clotting factors. Citrated Kaolin LY30 (Lysis) 0.0 0.0 - 2.6 % 11/01/2023 9:12 PM CDT [facility] Citrated Functional Fibrinogen MA (Max Amplitude) 18.6 15.0 - 32.0 mm 11/01/2023 9:12 PM CDT [facility] [employer] RapidTEG MA (Max Amplitude) 58.8 52.0 - 70.0 mm 11/01/2023 9:12 PM T [facility] Blood BLOOD SPECIMEN / Unknown Venipuncture / Unknown 11/01/2023 7:56 PM CDT 11/01/2023 8:15 PM CDT Kathryn Quach MD LAB - HEMATOLOGY ORD ERABLES [facility] [address] [place] [address], [facility] [phone] * (ABNORMAL) TEG 6S PLATELET MAPPING (11/01/2023 7:56 PM CDT) TEGPLM (Max Amplitude) Koalin 61.0 53.0 - 68.0 mm 11/01/2023 8:53 PM [facility] TEGPLM (Max Amplitude) ACTF 11.4 2.0 - 19.0 mm 11/01/2023 8:53 PM [facility] TEGPLM (Max Amplitude) ADP 24.0(L) 45.0 - 69.0 mm 11/01/2023 8:53 PM [facility] Comment:ADP MA below normal range. Inhibition present. TEGPLM (Max Amplitude) AA 13.2(L) 51.0 - 71.0 mm 11/01/2023 8:53 PM [facility] Comment:AA MA below normal r wanda. Inhibition present. TEGPLM %Inhibition ADP 74.6(H) 0.0 - 17.0 % 11/01/2023 8:53 PM [facility] TEGPLM %Inhibition AA 96.4(H) 0.0 - 11.0 % 11/01/2023 8:53 PM [facility] TEGPLM %Aggregation ADP 25.4(L) 83.0 - 100.0 % 11/01/2023 8:53 PM [facility] TEGPLM % Aggregation AA 3.6(L) 89.0 - 100.0 % 11/01/2023 8:53 PM [facility] Blood BLOOD SPECIMEN / Unknown Venipuncture / Unknown 11/01/2023 7:56 PM CDT 11/01/2023 8:15 PM CDT Kathryn Quach MD LAB - HEMATOLOGY ORD ERABLES Performing Organization Address [facility]/ZIP Co de Phone Number [address] [address], [facility] [phone] * (ABNORMAL) PT-INR [facility] (11/01/2023 7:56 PM CDT) Pathologist [facility] PT 15.5(H) 12.1 - 14.8 Seconds 11/01/2023 8:35 PM CDT [facility] INR 1.3 See Comment 11/01/2023 8:35 PM CDT [facility] Comment:The suggested therap eutic range for standard coumadin (warfarin) therapy is an INR of 2.0-3.0. For high-risk patients (Mechanical Mitral Valve Prosthesis, etc.), the suggested prophylactic therapeutic range is an INR of 2.5-3.5. Blood BLOOD SPECIMEN / Unknown Venipuncture / Unknown 11/01/2023 7:56 PM CDT 11/01/2023 8:01 PM CDT Kathryn Quach MD LAB - COAGULATION OR DERABLES Performing Organization Address [facility]/ZIP Co de Phone Number [address] [address], [place] [phone] * TYPE + SCREEN PANEL (11/01/2023 7:56 PM CDT) Pathologist [facility] Antibody Screen POS 8:50 PM CDT [facility] BLOOD BANK LAB ABO Rh O POS 11/01/2023 8:50 PM CDT [facility] BLOOD [facility] LAB Blood Bank BLOOD SPECIMEN / Unknown Venipuncture / Unknown 11/01/2023 7:56 PM CDT 11/01/2023 8:07 PM CDT Kathryn Quach MD LAB - BLOOD BANK ORD ERABLES [facility] BLOOD [facility]ANK LAB [address] [place] [phone], [place] [phone] * AUDI DIRECT (11/01/2023 7:56 PM CDT) Pathologist [facility] Direct Audi (KAVIN) NEG 11/01/2023 9:20 PM CDT [facility] BLOOD [facility] LAB Blood Bank BLOOD SPECIMEN / Unknown Venipuncture / Unknown 11/01/2023 7:56 PM CDT 11/01/2023 8:07 PM CDT Kathryn Quach MD LAB - BLOOD BANK ORD ERABLES [facility] BLOOD [facility] LAB [address] [place] [address], [facility] [phone] * ANTIBODY IDENTIFICATION (11/01/2023 7:56 PM CDT) Pathologist [facility] Antibody 1 POS, Auto Anti-M 11/01/2023 11:49 PM CDT [facility] BLOOD [facility] LAB Blood Bank BLOOD SPECIMEN / Unknown Venipuncture / Unknown 11/01/2023 7:56 PM CDT 11/01/2023 8:07 PM CDT Kathryn Quach MD LAB - BLOOD BANK ORD ERABLES [facility] BLOOD [facility] LAB [address] [place] [address], [facility] [phone] * (ABNORMAL) CBC W AUTO DIFFERENTIAL (11/01/2023 7:56 PM CDT) [facility] WBC 6.8 4.0 - 10.7 x10E9/L 11/01/2023 9:34 PM CDT [facility] RBC Count 3.80(L) 3.90 - 5.20 x10E12/L 11/01/2023 9:34 PM CDT [facility] Hemoglobin 12.8 11.9 - 15.8 g/dL 11/01/2023 9:34 PM CDT [facility] Hematocrit 38.8 34.8 - 46.1 % 11/01/2023 9:34 PM CDT [facility] MCV 102.1(H) 80.0 - 98.0 fL 11/01/2023 9:34 PM [facility] MCH 33.7(H) 26.7 - 33.6 pg 11/01/2023 9:34 PM [facility] MCHC 33.0 31.7 - 36.3 g/dL 11/01/2023 9:34 PM [facility] Platelet Count 237 150 - 420 x10E9/L 11/01/2023 9:34 PM [facility] MPV 9.2 7.8 - 11.4 fL 11/01/2023 9:34 PM [facility] Neutrophil % 65.8 41.0 - 74.0 % 11/01/2023 9:34 PM [facility] Lymphocyte % 22.3 17.0 - 47.0 % 11/01/2023 9:34 PM [facility] Monocyte % 10.0 3.0 - 11.0 % 11/01/2023 9:34 PM [facility] Eosinophil % 0.9 0.0 - 7.0 % 11/01/2023 9:34 PM [facility] Basophil % 0.4 0.0 - 1.6 % 11/01/2023 9:34 PM [facility] Immature Granulocytes % 0.6 0.0 - 1.0 % 11/01/2023 9:34 PM [facility] Neutrophil Absolute 4.45 1.60 - 7.50 x10E9/L 11/01/2023 9:34 PM [facility] Lymphocyte Absolute 1.51 1.00 - 4.40 x10E9/L 11/01/2023 9:34 PM [facility] Monocyte Absolute 0.68 0.15 - 1.00 x10E9/L 11/01/2023 9:34 PM [facility] Eosinophil Absolute 0.06 0.00 - 0.60 x10E9/L 11/01/2023 9:34 PM [facility] Basophil Absolute 0.03 0.00 - 0.13 x10E9/L 11/01/2023 9:34 PM [facility] Blood BLOOD SPECIMEN / Unknown Venipuncture / Unknown 11/01/2023 7:56 PM CDT 11/01/2023 8:14 PM CDT Kathryn Quach MD LAB - HEMATOLOGY ROSMERY SAAB Performing Organization Address City/[facility]/ZIP Co de Phone Number [facility] [address] [place] [address], [facility] [phone] * ALCOHOL ETHYL BLOOD (11/01/2023 7:56 PM CDT) Ethanol (mg/dL) <10 <10 mg/dL 8:38 PM CDT [facility] Ethanol Calculated (g/dL) <0.010 <=0.010 g/dL 11/01/2023 8:38 PM CDT [facility] Blood BLOOD SPECIMEN / Unknown Venipuncture / Unknown 11/01/2023 7:56 PM CDT 11/01/2023 8:23 PM CDT Narrative [facility] - 11/01/2023 8:38 PM CDT Ethanol Interp <10: None Detected. Depression of [employer]OR: >100 mg/dl Potentially Critical: >250 mg/dl Potentially [...] MD LAB - CHEMISTRY MARIA INES HARTMANN [facility] [address] [place] [address], [facility] [phone] * CT CHEST ABDOMEN PELVIS W CONT [...] > Dictated by Paxton Whitley DO (residential team leader). I, Milad Mcnulty MD have personally reviewed and interpreted this examination/study. > Interpreting Provider: Milad Mcnulty MD on 11/01/2023 10:30 PM Narrative 11/01/2023 10:30 PM CDT PROCEDURE: ??CT CHEST ABDOMEN PELVIS W CONT, DATE/TIME OF EXAM: ??11/01/2023 7:48 PM, LOCATION ??[facility] INDICATION: Trauma ADDITIONAL CLINICAL INFORMATION: Ordering Provider [...] CONT, DATE/TIME OF EXAM:11/01/2023 7:48 PM, LOCATION [facility] INDICATION: Trauma ADDITIONAL CLINICAL INFORMATION: Ordering Provider [...] Impression: 1.Age-indeterminate, likely chronic, compression deformity of [id number] body with mild height loss. Refer to dedicated spine CT. 2.Otherwise, no acute chest, abdomen, or pelvis. > Dictated by Paxton Whitley DO (residential team leader). I, Milad Mcnulty MD have personally reviewed [...] endplates at these levels, which may represent [id number]-[id number] microtrabecular fractures. No evidence of retropulsion. Recommend [...] DATE/TIME OF EXAM: 11/01/2023 7:48 PM, LOCATION: ??[facility] HISTORY: Trauma ADDITIONAL CLINICAL INFORMATION: Ordering Provider [...] dependent subsegmental atelectasis of the lung apices. Aaaw-wf-yovzuxbk calcific atherosclerosis of the carotid bulbs and moderate calcific atherosclerosis of the common carotid arteries. Multiple calcified mediastinal lymph nodes that is suggestive of prior healed granulomatous disease. THORACIC SPINE: ALIGNMENT: Mild kyphosis centered at the T5 level and cugb-gs-rrfloljl levoconvex curvature of the upper thoracic spine without significant listhesis. No traumatic malalignment. BONES: Age-indeterminate compression fracture deformity of the T5 vertebral body superior endplate associated with a thin sclerotic line and with approximately 30% height loss anteriorly, which may represent an lbltd-gl-qvbsusoe microtrabecular fracture. Age-indeterminate compression fracture deformity of the T6 vertebral body superior endplate associated with a thin sclerotic line and with approximately 30% height loss centrally, which may represent an mtzip-bp-eyugygrr microtrabecular fracture. Chronic-appearing tahoxuk-xc-xdxf height loss remaining thoracic vertebral bodies. No retropulsion at any level. Osseous structures are markedly demineralized. DISCS: Multilevel mild disc space narrowing. DEGENERATIVE CHANGES: Overall skys-wa-ebhnxtua multilevel degenerative changes. ?? SPINAL CANAL/NEUROFORAMEN: No significant spinal canal stenosis. High-grade neuroforaminal narrowing at the right T2-T3 through T5-T6 levels and left T10-T11 level in addition to njsn-ik-ehbvbpkv neuroforaminal narrowing elsewhere. SOFT TISSUES: Visualized soft tissues are normal. OTHER: Dependent atelectasis of the lungs bilaterally. Mildly tortuous thoracic aorta with cpyxrshm-sl-kzvawl calcific atherosclerosis. Multiple calcified mediastinal lymph nodes [...] phenomena at all levels. DEGENERATIVE CHANGES: Overall hnigzkuv-tn-voohwb multilevel degenerative change, characterized by varying degrees of posterior disc bulges, ligamentum flavum hypertrophy, and facet arthropathy. ?? SPINAL CANAL/NEUROFORAMEN: Multilevel spinal canal stenoses that is notably mild at the T12-L1 and L2-L3 levels, vvuoqnpc-hi-rcfyzs at the L3-L4 and L4-L5 levels, and [...] DATE/TIME OF EXAM: 11/01/2023 7:48 PM, LOCATION: [facility] HISTORY: Trauma ADDITIONAL CLINICAL INFORMATION: Ordering Provider [...] dependent subsegmental atelectasis of the lung apices. Kxdp-hz-tzamdtef calcific atherosclerosis of the carotid bulbs andmoderate calcific atherosclerosis of the common carotid arteries. Multiplecalcified mediastinal lymph nodes that is suggestive of prior healed granulomatous disease. THORACIC SPINE: ALIGNMENT: Mild kyphosis centered at the T5 level and esrz-hp-gjifbpna levoconvex curvature of the upper thoracic spine without significant listhesis. No traumatic malalignment. BONES: Age-indeterminate compression fracture deformity of the T7hojnfdorx body superior endplate associated with a thin sclerotic line and with approximately 30% height loss anteriorly, which may represent an zendk-ch-qtsgwbcn microtrabecular fracture. Age-indeterminatecompression fracture deformity of the T6 vertebral body superior endplate associated with a thin sclerotic line and with approximately 30% height loss centrally, which may represent an yxeey-bb-afwtsfjy microtrabecular fracture. Chronic-appearing makwojf-hb-lqhg height loss remainingthoracic vertebral bodies. No retropulsion at any level. Osseous structures are markedly demineralized. DISCS: Multilevel mild disc space narrowing. DEGENERATIVE CHANGES: Overall lyky-ms-luuegjog multilevel degenerative changes. SPINAL CANAL/NEUROFORAMEN: No significant spinal canal stenosis.High-grade neuroforaminal narrowing at the right T2-T3 through T5-T6 levels andleft T10-T11 level in addition to msfs-ev-sbtsuuwk neuroforaminal narrowing elsewhere. SOFT TISSUES: Visualized soft tissues are normal. OTHER: Dependent atelectasis of the lungs bilaterally. Mildly tortuous thoracic aorta with ddgtlgbf-jm-okalmj calcific atherosclerosis.Multiple calcified mediastinal lymph nodes that [...] of the L1 vertebral body resulting in nsxisbnvtjery06% height loss associated with approximately 4 mm retropulsion and evidence prior vertebroplasty/kyphoplasty change. Remaining vertebral bodyheights are maintained. 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 Osseous structures are markedly demineralized. DISCS: Multilevel advanced disc space narrowing and vacuum discphenomena at all levels. DEGENERATIVE CHANGES: Overall tfsettlf-bq-xokqgm multilevel degenerative change, characterized by varying degrees of posterior disc bulges, ligamentum flavum hypertrophy, and facet arthropathy. SPINAL CANAL/NEUROFORAMEN: Multilevel spinal canal stenoses that isnotably mild at the T12-L1 and L2-L3 levels, ptjlfcap-ym-xezzwd at the L3-L4 and L4-L5 levels, and [...] endplates at these levels, which may represent vctrx-lh-mgpccrli microtrabecular fractures. No evidence of retropulsion. Recommend [...] Elliott MD, PhD on 11/01/2023 10:38 PM Kathyrn Quach MD CT ORDERABLES * CT THORACIC [...] endplates at these levels, which may represent mrrie-wg-nxqjetee microtrabecular fractures. No evidence of retropulsion. Recommend [...] DATE/TIME OF EXAM: 11/01/2023 7:48 PM, LOCATION: ??[facility] HISTORY: Trauma ADDITIONAL CLINICAL INFORMATION: Ordering Provider [...] dependent subsegmental atelectasis of the lung apices. Gwpt-gi-sscxmczj calcific atherosclerosis of the carotid bulbs and moderate calcific atherosclerosis of the common carotid arteries. Multiple calcified mediastinal lymph nodes that is suggestive of prior healed granulomatous disease. THORACIC SPINE: ALIGNMENT: Mild kyphosis centered at the T5 level and zadh-ya-fgmsubgs levoconvex curvature of the upper thoracic spine without significant listhesis. No traumatic malalignment. BONES: Age-indeterminate compression fracture deformity of the T5 vertebral body superior endplate associated with a thin sclerotic line and with approximately 30% height loss anteriorly, which may represent an bzyvb-ri-drbmnvkf microtrabecular fracture. Age-indeterminate compression fracture deformity of the T6 vertebral body superior endplate associated with a thin sclerotic line and with approximately 30% height loss centrally, which may represent an wdtgb-pq-njfyqhrz microtrabecular fracture. Chronic-appearing ognaxxh-se-lesn height loss remaining thoracic vertebral bodies. No retropulsion at any level. Osseous structures are markedly demineralized. DISCS: Multilevel mild disc space narrowing. DEGENERATIVE CHANGES: Overall bjhw-zh-hbjuupvr multilevel degenerative changes. ?? SPINAL CANAL/NEUROFORAMEN: No significant spinal canal stenosis. High-grade neuroforaminal narrowing at the right T2-T3 through T5-T6 levels and left T10-T11 level in addition to iobq-xg-axvvypko neuroforaminal narrowing elsewhere. SOFT TISSUES: Visualized soft tissues are normal. OTHER: Dependent atelectasis of the lungs bilaterally. Mildly tortuous thoracic aorta with anykqvjn-rt-okrpig calcific atherosclerosis. Multiple calcified mediastinal lymph nodes [...] phenomena at all levels. DEGENERATIVE CHANGES: Overall qmyskgew-gd-tvbpqt multilevel degenerative change, characterized by varying degrees of posterior disc bulges, ligamentum flavum hypertrophy, and facet arthropathy. ?? SPINAL CANAL/NEUROFORAMEN: Multilevel spinal canal stenoses that is notably mild at the T12-L1 and L2-L3 levels, xlelwwyw-iu-ppikpo at the L3-L4 and L4-L5 levels, and [...] DATE/TIME OF EXAM: 11/01/2023 7:48 PM, LOCATION: [facility] HISTORY: Trauma ADDITIONAL CLINICAL INFORMATION: Ordering Provider [...] dependent subsegmental atelectasis of the lung apices. Irwp-mc-buxystae calcific atherosclerosis of the carotid bulbs andmoderate calcific atherosclerosis of the common carotid arteries. Multiplecalcified mediastinal lymph nodes that is suggestive of prior healed granulomatous disease. THORACIC SPINE: ALIGNMENT: Mild kyphosis centered at the T5 level and ffsv-xy-acicrzzn levoconvex curvature of the upper thoracic spine without significant listhesis. No traumatic malalignment. BONES: Age-indeterminate compression fracture deformity of the I0ttojtxcfx body superior endplate associated with a thin sclerotic line and with approximately 30% height loss anteriorly, which may represent an fofbh-dp-jkhqsart microtrabecular fracture. Age-indeterminatecompression fracture deformity of the T6 vertebral body superior endplate associated with a thin sclerotic line and with approximately 30% height loss centrally, which may represent an mchjc-na-ptmpdqqo microtrabecular fracture. Chronic-appearing jtzczdh-ry-xhlw height loss remainingthoracic vertebral bodies. No retropulsion at any level. Osseous structures are markedly demineralized. DISCS: Multilevel mild disc space narrowing. DEGENERATIVE CHANGES: Overall jhpa-fs-atvmreea multilevel degenerative changes. SPINAL CANAL/NEUROFORAMEN: No significant spinal canal stenosis.High-grade neuroforaminal narrowing at the right T2-T3 through T5-T6 levels andleft T10-T11 level in addition to khef-hb-tdlqfelq neuroforaminal narrowing elsewhere. SOFT TISSUES: Visualized soft tissues are normal. OTHER: Dependent atelectasis of the lungs bilaterally. Mildly tortuous thoracic aorta with tbjjhkbn-ni-impkco calcific atherosclerosis.Multiple calcified mediastinal lymph nodes that [...] of the L1 vertebral body resulting in xstjknflotmmq09% height loss associated with approximately 4 mm retropulsion and evidence prior vertebroplasty/kyphoplasty change. Remaining vertebral bodyheights are maintained. 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 Osseous structures are markedly demineralized. DISCS: Multilevel advanced disc space narrowing and vacuum discphenomena at all levels. DEGENERATIVE CHANGES: Overall mestnvdi-qw-qnkchw multilevel degenerative change, characterized by varying degrees of posterior disc bulges, ligamentum flavum hypertrophy, and facet arthropathy. SPINAL CANAL/NEUROFORAMEN: Multilevel spinal canal stenoses that isnotably mild at the T12-L1 and L2-L3 levels, bbbzrcci-qm-halzdn at the L3-L4 and L4-L5 levels, and [...] endplates at these levels, which may represent hmidz-tn-dxprthof microtrabecular fractures. No evidence of retropulsion. Recommend [...] endplates at these levels, which may represent tavon-ii-ypnfciyy microtrabecular fractures. No evidence of retropulsion. Recommend [...] DATE/TIME OF EXAM: 11/01/2023 7:48 PM, LOCATION: ??[facility] HISTORY: Trauma ADDITIONAL CLINICAL INFORMATION: Ordering Provider [...] dependent subsegmental atelectasis of the lung apices. Nkai-je-ldpkeafl calcific atherosclerosis of the carotid bulbs and moderate calcific atherosclerosis of the common carotid arteries. Multiple calcified mediastinal lymph nodes that is suggestive of prior healed granulomatous disease. THORACIC SPINE: ALIGNMENT: Mild kyphosis centered at the T5 level and keyj-hu-qjaqemux levoconvex curvature of the upper thoracic spine without significant listhesis. No traumatic malalignment. BONES: Age-indeterminate compression fracture deformity of the T5 vertebral body superior endplate associated with a thin sclerotic line and with approximately 30% height loss anteriorly, which may represent an xqrfv-ps-ebznhnnv microtrabecular fracture. Age-indeterminate compression fracture deformity of the T6 vertebral body superior endplate associated with a thin sclerotic line and with approximately 30% height loss centrally, which may represent an pfwch-xa-jdsjpwrs microtrabecular fracture. Chronic-appearing toipcyv-gi-xlxh height loss remaining thoracic vertebral bodies. No retropulsion at any level. Osseous structures are markedly demineralized. DISCS: Multilevel mild disc space narrowing. DEGENERATIVE CHANGES: Overall cjjv-zh-mrontnbe multilevel degenerative changes. ?? SPINAL CANAL/NEUROFORAMEN: No significant spinal canal stenosis. High-grade neuroforaminal narrowing at the right T2-T3 through T5-T6 levels and left T10-T11 level in addition to odhk-wr-whqqflbf neuroforaminal narrowing elsewhere. SOFT TISSUES: Visualized soft tissues are normal. OTHER: Dependent atelectasis of the lungs bilaterally. Mildly tortuous thoracic aorta with wpixncrr-gh-mgrqik calcific atherosclerosis. Multiple calcified mediastinal lymph nodes [...] phenomena at all levels. DEGENERATIVE CHANGES: Overall yskryuoa-tg-aiqjmn multilevel degenerative change, characterized by varying degrees of posterior disc bulges, ligamentum flavum hypertrophy, and facet arthropathy. ?? SPINAL CANAL/NEUROFORAMEN: Multilevel spinal canal stenoses that is notably mild at the T12-L1 and L2-L3 levels, cfprwobr-pl-cyiqjd at the L3-L4 and L4-L5 levels, and [...] DATE/TIME OF EXAM: 11/01/2023 7:48 PM, LOCATION: [facility] HISTORY: Trauma ADDITIONAL CLINICAL INFORMATION: Ordering Provider [...] dependent subsegmental atelectasis of the lung apices. Vmff-or-vollydfe calcific atherosclerosis of the carotid bulbs andmoderate calcific atherosclerosis of the common carotid arteries. Multiplecalcified mediastinal lymph nodes that is suggestive of prior healed granulomatous disease. THORACIC SPINE: ALIGNMENT: Mild kyphosis centered at the T5 level and amec-pe-jkdataqp levoconvex curvature of the upper thoracic spine without significant listhesis. No traumatic malalignment. BONES: Age-indeterminate compression fracture deformity of the M7jrzbnmnlr body superior endplate associated with a thin sclerotic line and with approximately 30% height loss anteriorly, which may represent an bznph-km-jbxhoqyw microtrabecular fracture. Age-indeterminatecompression fracture deformity of the T6 vertebral body superior endplate associated with a thin sclerotic line and with approximately 30% height loss centrally, which may represent an hahfo-jl-yneyltsy microtrabecular fracture. Chronic-appearing ymuknnr-lo-bomk height loss remainingthoracic vertebral bodies. No retropulsion at any level. Osseous structures are markedly demineralized. DISCS: Multilevel mild disc space narrowing. DEGENERATIVE CHANGES: Overall akym-gt-eysemeuk multilevel degenerative changes. SPINAL CANAL/NEUROFORAMEN: No significant spinal canal stenosis.High-grade neuroforaminal narrowing at the right T2-T3 through T5-T6 levels andleft T10-T11 level in addition to yafu-ur-dfdnixzx neuroforaminal narrowing elsewhere. SOFT TISSUES: Visualized soft tissues are normal. OTHER: Dependent atelectasis of the lungs bilaterally. Mildly tortuous thoracic aorta with dqtcuoim-fm-ymgpfz calcific atherosclerosis.Multiple calcified mediastinal lymph nodes that [...] of the L1 vertebral body resulting in fjwbnakxfwiwt33% height loss associated with approximately 4 mm retropulsion and evidence prior vertebroplasty/kyphoplasty change. Remaining vertebral bodyheights are maintained. 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 Osseous structures are markedly demineralized. DISCS: Multilevel advanced disc space narrowing and vacuum discphenomena at all levels. DEGENERATIVE CHANGES: Overall xhjawzxr-ey-uwzqim multilevel degenerative change, characterized by varying degrees of posterior disc bulges, ligamentum flavum hypertrophy, and facet arthropathy. SPINAL CANAL/NEUROFORAMEN: Multilevel spinal canal stenoses that isnotably mild at the T12-L1 and L2-L3 levels, rzqimhft-on-pvxscq at the L3-L4 and L4-L5 levels, and [...] endplates at these levels, which may represent cmqls-bw-igejlwhy microtrabecular fractures. No evidence of retropulsion. Recommend [...] endplates at these levels, which may represent oqimy-xa-ztvxkcav microtrabecular fractures. No evidence of retropulsion. Recommend [...] DATE/TIME OF EXAM: 11/01/2023 7:48 PM, LOCATION: ??[facility] HISTORY: Trauma ADDITIONAL CLINICAL INFORMATION: Ordering Provider [...] dependent subsegmental atelectasis of the lung apices. Hmap-wu-vaumubgf calcific atherosclerosis of the carotid bulbs and moderate calcific atherosclerosis of the common carotid arteries. Multiple calcified mediastinal lymph nodes that is suggestive of prior healed granulomatous disease. THORACIC SPINE: ALIGNMENT: Mild kyphosis centered at the T5 level and dbfh-nu-cbmpdqxw levoconvex curvature of the upper thoracic spine without significant listhesis. No traumatic malalignment. BONES: Age-indeterminate compression fracture deformity of the T5 vertebral body superior endplate associated with a thin sclerotic line and with approximately 30% height loss anteriorly, which may represent an ggklo-xr-cvgzfwvw microtrabecular fracture. Age-indeterminate compression fracture deformity of the T6 vertebral body superior endplate associated with a thin sclerotic line and with approximately 30% height loss centrally, which may represent an sdjgb-ko-zsbromye microtrabecular fracture. Chronic-appearing lnbjqsj-cb-cskn height loss remaining thoracic vertebral bodies. No retropulsion at any level. Osseous structures are markedly demineralized. DISCS: Multilevel mild disc space narrowing. DEGENERATIVE CHANGES: Overall bmpy-rc-xvndkcsk multilevel degenerative changes. ?? SPINAL CANAL/NEUROFORAMEN: No significant spinal canal stenosis. High-grade neuroforaminal narrowing at the right T2-T3 through T5-T6 levels and left T10-T11 level in addition to puie-sr-pbhnklre neuroforaminal narrowing elsewhere. SOFT TISSUES: Visualized soft tissues are normal. OTHER: Dependent atelectasis of the lungs bilaterally. Mildly tortuous thoracic aorta with lcblncgt-jp-vzexco calcific atherosclerosis. Multiple calcified mediastinal lymph nodes [...] phenomena at all levels. DEGENERATIVE CHANGES: Overall oigfvrrd-vl-kykxvq multilevel degenerative change, characterized by varying degrees of posterior disc bulges, ligamentum flavum hypertrophy, and facet arthropathy. ?? SPINAL CANAL/NEUROFORAMEN: Multilevel spinal canal stenoses that is notably mild at the T12-L1 and L2-L3 levels, yeljgjdr-qh-dddeon at the L3-L4 and L4-L5 levels, and [...] DATE/TIME OF EXAM: 11/01/2023 7:48 PM, LOCATION: [facility] HISTORY: Trauma ADDITIONAL CLINICAL INFORMATION: Ordering Provider [...] dependent subsegmental atelectasis of the lung apices. Gkhf-xn-tslhizee calcific atherosclerosis of the carotid bulbs andmoderate calcific atherosclerosis of the common carotid arteries. Multiplecalcified mediastinal lymph nodes that is suggestive of prior healed granulomatous disease. THORACIC SPINE: ALIGNMENT: Mild kyphosis centered at the T5 level and meyf-cf-bnatmcjl levoconvex curvature of the upper thoracic spine without significant listhesis. No traumatic malalignment. BONES: Age-indeterminate compression fracture deformity of the S5ubvbykdss body superior endplate associated with a thin sclerotic line and with approximately 30% height loss anteriorly, which may represent an lhywd-da-vknpdabn microtrabecular fracture. Age-indeterminatecompression fracture deformity of the T6 vertebral body superior endplate associated with a thin sclerotic line and with approximately 30% height loss centrally, which may represent an ymlms-fi-rgrqrrdm microtrabecular fracture. Chronic-appearing gmiodvt-dv-bkqw height loss remainingthoracic vertebral bodies. No retropulsion at any level. Osseous structures are markedly demineralized. DISCS: Multilevel mild disc space narrowing. DEGENERATIVE CHANGES: Overall gutu-rb-shnyvjyf multilevel degenerative changes. SPINAL CANAL/NEUROFORAMEN: No significant spinal canal stenosis.High-grade neuroforaminal narrowing at the right T2-T3 through T5-T6 levels andleft T10-T11 level in addition to lqxe-ic-nialxngw neuroforaminal narrowing elsewhere. SOFT TISSUES: Visualized soft tissues are normal. OTHER: Dependent atelectasis of the lungs bilaterally. Mildly tortuous thoracic aorta with bfzbufjp-my-nktkku calcific atherosclerosis.Multiple calcified mediastinal lymph nodes that [...] of the L1 vertebral body resulting in hbnpoydllcgua47% height loss associated with approximately 4 mm retropulsion and evidence prior vertebroplasty/kyphoplasty change. Remaining vertebral bodyheights are maintained. 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 Osseous structures are markedly demineralized. DISCS: Multilevel advanced disc space narrowing and vacuum discphenomena at all levels. DEGENERATIVE CHANGES: Overall ognwqzle-iw-ljimiv multilevel degenerative change, characterized by varying degrees of posterior disc bulges, ligamentum flavum hypertrophy, and facet arthropathy. SPINAL CANAL/NEUROFORAMEN: Multilevel spinal canal stenoses that isnotably mild at the T12-L1 and L2-L3 levels, qftavuha-tq-fxrigh at the L3-L4 and L4-L5 levels, and [...] endplates at these levels, which may represent gpaiq-wj-uvmgfmdw microtrabecular fractures. No evidence of retropulsion. Recommend [...] endplates at these levels, which may represent xtyrq-yn-oucxwvrt microtrabecular fractures. No evidence of retropulsion. Recommend [...] DATE/TIME OF EXAM: 11/01/2023 7:48 PM, LOCATION: ??[facility] HISTORY: Trauma ADDITIONAL CLINICAL INFORMATION: Ordering Provider [...] dependent subsegmental atelectasis of the lung apices. Hgfu-iz-igtkhpzq calcific atherosclerosis of the carotid bulbs and moderate calcific atherosclerosis of the common carotid arteries. Multiple calcified mediastinal lymph nodes that is suggestive of prior healed granulomatous disease. THORACIC SPINE: ALIGNMENT: Mild kyphosis centered at the T5 level and eens-yq-frhvslgq levoconvex curvature of the upper thoracic spine without significant listhesis. No traumatic malalignment. BONES: Age-indeterminate compression fracture deformity of the T5 vertebral body superior endplate associated with a thin sclerotic line and with approximately 30% height loss anteriorly, which may represent an rvybn-uv-riromonp microtrabecular fracture. Age-indeterminate compression fracture deformity of the T6 vertebral body superior endplate associated with a thin sclerotic line and with approximately 30% height loss centrally, which may represent an uigss-gw-eugtneyg microtrabecular fracture. Chronic-appearing nczgpuh-me-bsmb height loss remaining thoracic vertebral bodies. No retropulsion at any level. Osseous structures are markedly demineralized. DISCS: Multilevel mild disc space narrowing. DEGENERATIVE CHANGES: Overall ozsg-ar-nbmrxelf multilevel degenerative changes. ?? SPINAL CANAL/NEUROFORAMEN: No significant spinal canal stenosis. High-grade neuroforaminal narrowing at the right T2-T3 through T5-T6 levels and left T10-T11 level in addition to bmct-ht-pwbfwwmn neuroforaminal narrowing elsewhere. SOFT TISSUES: Visualized soft tissues are normal. OTHER: Dependent atelectasis of the lungs bilaterally. Mildly tortuous thoracic aorta with kwudsoos-pd-wufcfj calcific atherosclerosis. Multiple calcified mediastinal lymph nodes [...] phenomena at all levels. DEGENERATIVE CHANGES: Overall irjzggsy-ih-eegzwk multilevel degenerative change, characterized by varying degrees of posterior disc bulges, ligamentum flavum hypertrophy, and facet arthropathy. ?? SPINAL CANAL/NEUROFORAMEN: Multilevel spinal canal stenoses that is notably mild at the T12-L1 and L2-L3 levels, iwxosgkj-hc-dgqtky at the L3-L4 and L4-L5 levels, and [...] DATE/TIME OF EXAM: 11/01/2023 7:48 PM, LOCATION: [facility] HISTORY: Trauma ADDITIONAL CLINICAL INFORMATION: Ordering Provider [...] dependent subsegmental atelectasis of the lung apices. Pray-kw-yqfvxyyu calcific atherosclerosis of the carotid bulbs andmoderate calcific atherosclerosis of the common carotid arteries. Multiplecalcified mediastinal lymph nodes that is suggestive of prior healed granulomatous disease. THORACIC SPINE: ALIGNMENT: Mild kyphosis centered at the T5 level and vpbe-ov-reytsarw levoconvex curvature of the upper thoracic spine without significant listhesis. No traumatic malalignment. BONES: Age-indeterminate compression fracture deformity of the K8bjwwccppr body superior endplate associated with a thin sclerotic line and with approximately 30% height loss anteriorly, which may represent an pojsz-bu-qjxuqyfo microtrabecular fracture. Age-indeterminatecompression fracture deformity of the T6 vertebral body superior endplate associated with a thin sclerotic line and with approximately 30% height loss centrally, which may represent an tmlbh-kg-bhbgiyko microtrabecular fracture. Chronic-appearing ttcykyf-zc-lnxv height loss remainingthoracic vertebral bodies. No retropulsion at any level. Osseous structures are markedly demineralized. DISCS: Multilevel mild disc space narrowing. DEGENERATIVE CHANGES: Overall mjgg-my-dsfcyocs multilevel degenerative changes. SPINAL CANAL/NEUROFORAMEN: No significant spinal canal stenosis.High-grade neuroforaminal narrowing at the right T2-T3 through T5-T6 levels andleft T10-T11 level in addition to fgvg-jo-cqbxrjsy neuroforaminal narrowing elsewhere. SOFT TISSUES: Visualized soft tissues are normal. OTHER: Dependent atelectasis of the lungs bilaterally. Mildly tortuous thoracic aorta with uohrqkpz-nk-daoehw calcific atherosclerosis.Multiple calcified mediastinal lymph nodes that [...] of the L1 vertebral body resulting in ubgmmqplhmqwy00% height loss associated with approximately 4 mm retropulsion and evidence prior vertebroplasty/kyphoplasty change. Remaining vertebral bodyheights are maintained. 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 Osseous structures are markedly demineralized. DISCS: Multilevel advanced disc space narrowing and vacuum discphenomena at all levels. DEGENERATIVE CHANGES: Overall fontpejg-uj-nkvygx multilevel degenerative change, characterized by varying degrees of posterior disc bulges, ligamentum flavum hypertrophy, and facet arthropathy. SPINAL CANAL/NEUROFORAMEN: Multilevel spinal canal stenoses that isnotably mild at the T12-L1 and L2-L3 levels, ztzxtiek-ef-czeone at the L3-L4 and L4-L5 levels, and [...] endplates at these levels, which may represent gsgfa-pd-ublllluo microtrabecular fractures. No evidence of retropulsion. Recommend [...] dictated by Sarah Keith Dr, MD (residential team leader). I, Loreto Bone MD have personally reviewed and interpreted this examination/study. > Interpreting Provider: Loreto Bone MD on 11/01/2023 9:17 PM Narrative 11/01/2023 9:17 PM CDT PROCEDURE: ??XR PELVIS 1 OR 2VW, DATE/TIME OF EXAM: ??11/01/2023 7:10 PM, LOCATION ??[facility] INDICATION: T14.90XA: Trauma ADDITIONAL CLINICAL INFORMATION: Ordering [...] DATE/TIME OF EXAM: 11/01/2023 7:10 PM, LOCATION [facility] INDICATION: T14.90XA: Trauma ADDITIONAL CLINICAL INFORMATION: Ordering [...] dictated by Sarah Keith Dr, MD (residential team leader). I, Loreto Bone MD have personally reviewed and interpreted this examination/study. 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
--- OUTSIDE RECORDS SUMMARY | 2024-06-09 05:24 | XMS_ITS ---
Author Organization [facility] [place] Address [address] [place], [place] [id number] Care Team Providers Care Business Leader Name Role Phone JeromeYissel szymanskish Unavailable Unavailable THOMAS GENE Unavailable [phone] REASON FOR VISIT *General care Encounters Encounter Location Date Provider Diagnosis [address] [id number] 04/22/2024 GENE GUZMAN Other hammer toe(s) (acquired), right foot M20.41 ; Tinea unguium B35.1 ; Other hammer toe(s) (acquired), left foot M20.42 ; Pain in right toe(s) M79.674 ; Pain in left toe(s) M79.675 and 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 04/22/2024 Tinea unguium (ICD-10 - B35.1) Aseptic [...] prescription treatments. 04/22/2024 Other hammer toe(s) (acquired), left foot (ICD-10 - M20.42) 04/22/2024 Pain in right toe(s) (ICD-10 - M79.674) 04/22/2024 Pain in left toe(s) (ICD-10 - M79.675) 04/22/2024 Unspecified atherosclerosis of sleetmute arteries of extremities, bilateral legs (ICD-10 - [...] OTC and prescription treatments. Unspecified atherosclerosis of sleetm[place] arteries of extremities, bilateral legs Patient educated on risks and aggravating factors of PVD, including conservative treatment options such as a diet and exercise regimen to aid in slowing progression of vascular disease Next Appt Details Follow Up: 3 Months, Reason: Provider Name:GENE GUZMAN, 07/01/2024 10:00:00 AM, [address], [place], [id number], Progress Notes * FREDA CHILDS MDOB: [birth year] (83 yo F)Acc No.[id number]:04/22/2024 Patient:?FREDA CHILDS Provider:?GENE GUZMAN :1940???Age:83 Y???Sex:Female D ate:04/22/2024 Address:[address] [place], [place] [id number] Subjective: * Chief Complaints: * ???1. *General care. * HPI: ???HPI:?General care?Patient presents to the office for at risk foot care. Patient states that their nails are thickened, elongated and painful. Patient states that it is aggravated by shoe gear. Onset is gradual. Patient denies being diabetic., Patient is taking prescription blood thinners., Date last seen by Dr. Acuna was 11/2023..? * ROS:?General / Constitutional:?Patient denies?weakness.?Respiratory:?Patient denies?chronic cough, shortness of breath, sputum production.?Cardiovascular:?Patient denies?chest pain, history of IA, irregular heartbeat.?Musculoskeletal:?Patient complains of?hammertoes.?Peripheral Vascular:?Patient denies?blanching of skin, cold extremities, decreased sensation in extremities.?Skin:?Patient complains of?fungal nails, nail changes.?Neurologic:?Patient denies?dizziness, gait abnormality, headache.? * Medical History:? Objective: * Vitals:? * Examination: ???Physical Examination: ???Vascular: Dorsalis Pedis [...] * Assessment: 1.?Tinea unguium - B35.1 (Pr imary)???2.?Other hammer toe(s) (acquired), right foot - M20.41???3.?Other hammer toe(s) (acquired), left foot - M20.42???4.?Pain in right toe(s) - M79.674???5.?Pain in left toe(s) - M79.675???6.?Unspecified atherosclerosis of [place]etm[place] arteries of extremities, bilateral legs - I70.203??? Plan: * Treatment: 2.?Other hammer toe(s) (acqu [...] were emphasized. ?? 3.?Unspecified atheroscleros is of sleetm[place] arteries of extremities, bilateral legs? Notes: Patient educated on risks and aggravating factors of PVD, including conservative treatment options such as a diet and exercise regimen to aid in slowing progression of vascular disease ?? * Procedure Codes:?86641 DEBRI DE NAIL, 6 OR MORE, Modifiers: Q8 * Follow Up:?3 Months * Billing Information: * Visit Code:? * Procedure Codes:? 87166 DEBRIDE NAIL, 6 OR MORE. Modifiers: Q8 * STYLE COORDINATOR Sign off status: Completed true * Provider:MADHURI GUZMAN Date:?04/22/2024 Generated for Natasha bledsoe/Jose Francisco/Gavin on:?06/09/2024 02:33 AM LIFESTYLE COORDINATOR History and Physical Notes * HPI (History [...] Date last seen by Dr. Acuna was 11/2023. Examination Category Sub-Category Detail Notes Category Not [...]
--- OUTSIDE RECORDS SUMMARY | 2024-06-09 05:24 | XMS_ITS | Encounter Summary ---
Author Organization [facility] Address [address] [place] [address] Care Team Providers Care Factory Lay Out Engineer Name Role Phone Pierre Acuna DO Primary Care Provider [phone] Encounter Details Date Type Department Care Team (Latest Contact Info) Description 01/12/2024 9:55 AM CDT - 01/12/2024 11:59 PM CDT Hospital Encounter [facility]ST[facility] OP [address] [place] [phone] Zhou Gutiérrez MD [address] [place] [phone] Neurosurgery Discharge Disposition: Home or Self Care [...] and heating? Not hard at all 11/03/2023 [facility] [place] [facility] - Occupational Stress [...] place to sleep or slept in a long term (including now)? No 11/03/2023 Sex and Gender [...] mouth once daily Each morning HYDROcodone-acetaminoph en ([place]) 10-325 MG tabletIndications:Close d fracture of multiple [...] tablet by mouth once daily nystatin (Mycostatin) 961407 UNIT/GM powder APPLY TO AFFECTED AREA 2 [...] encounter documented in this encounter Care Teams Factory Lay Out Engineer Relationship Specialty Start Date End Date Pierre Acuna DO [address] [place] [id number] PCP - General Family Medicine 11/02/23 documented as of this encounter
--- OUTSIDE RECORDS SUMMARY | 2024-06-09 05:24 | XMS_ITS | Encounter Summary ---
Author Organization [facility] Address [address] [facility] [place] [address] Care Team Providers Care Power Switchboard Operator Name Role Phone Pierre Acuna DO Primary Care Provider [phone] Encounter Details Date Type Department Care Team (Late st Contact Info) Description 11/05/2023 Orders Only [facility] STAY UNIT [address] [place] [phone] Lenore Abbasi, DO [address] [place] [address]?? [place] [address] Social History Tobacco Use Types Packs/Day Years [...] and heating? Not hard at all 11/03/2023 [facility] [place] [facility] - Occupational Stress [...] on filedocumented in this encounter Care Teams Power Switchboard Operator Relationship Specialty Start Date End Date Pierre Acuna DO [address] [place] [place] [id number] PCP - General Family Medicine 11/02/23 documented as of this encounter
--- OUTSIDE RECORDS SUMMARY | 2024-06-09 05:24 | XMS_ITS | Encounter Summary ---
Author Organization [facility] Address [address] [facility] [place] [address] Care Team Providers Care Summer Intern Name Role Phone Pierre Acuna DO Primary Care Provider [phone] Reason for Visit * Reason Comments Fall Pt BIBEMS for Fall. EMS reports patient fell from curb to concrete, +LOC, +thinners, VSS. Pt presents alert, 1cm lac to posterior head, c/o lumbar tenderness, and headache. * Auth/Cert (Routine) Specialty Diagnoses / Procedures Referred By Eliana t Referred To Contact Referral ID Status Reason Start Date Expiration Date Visits Re quested Visits Authorized [id number] 1 1 Encounter Details Date Type Department Care Team (Late st Contact Info) Description 11/01/2023 6:51 PM CDT - 11/08/2023 5:36 PM CDT Hospital Encounter [facility]AY [facility] [address] [place] [phone] Mckay Church MD [address] [facility] DIV [place] [address] Gabriel Hill MD [address] [place] [phone] Rambo Alvarado MD [address] [facility] DIV OF [place]ER[place] [address] Kathryn Quach MD [address] DIV [place] [phone] Surgery General Discharge Disposition: Rehab:Inpatient Social History [...] and heating? Not hard at all 11/03/2023 [facility] Occupat ional Health - Occupational Stress [...] place to sleep or slept in a custodial (including now)? No 11/03/2023 Sex and Gender [...] Physician Discharge Summary Patient ID: Promise Fierro [id number] 83 year old 1940 Admit date: 11/01/2023 Discharge date and time: 11/08/23 9:30am Admitting Physician: Kathryn Quach MD Discharge Physician: Jamil Bernard MD Present on Admission: Allergies Trauma Other closed fracture of thoracic vertebra, unspecified thoracic vertebral level, initial encounter([facility]) Closed fracture of multiple ribs of left [...] Rib fractures. Patient was previously on home Surrey TID 10mg/325mg due to chronic back pain. [...] HYDROcodone-acetaminophen 10-325 MG tablet Commonly known as: Surrey Take 1 (one) tablet by mouth 3 times daily levothyroxine 75 MCG tablet Commonly known as: Synthroid Take 1 (one) tablet by mouth once daily lidocaine 5 % patch Commonly known as: Lidoderm Apply 2 (two) patches to skin every 24 hours Apply patch to most painful area and remove after 12 hours. May reapply a new patch 12 hours later. nystatin 279407 UNIT/GM powder Commonly known as: Mycostatin Apply [...] MCG tablet lidocaine 5 % patch nystatin 155435 UNIT/GM powder polyethylene glycol 3350 17 g packet vitamin D3 25 MCG (1000 UNITS) tablet zinc gluconate 50 MG tablet Contact information for follow-up providers Pierre Acuna DO . Specialty: Family Medicine Contact information: [address] [facility] [address] Zhou Gutiérrez MD . Specialty: Neurological Surgery Contact information: [facility] OF NEUROSURGERY [facility] [address] Contact information for after-discharge care Destination [facility]. Acute Rehab . Service: Inpatient Rehabilitation Contact information: [address] [facility] [address] Discharge Instructions Return precautions: Please call your healthcare provider or go to the ER for fever 100.4??F (38??C) or higher, uncontrolled pain, bleeding, trouble breathing, chest pain, uncontrolled nausea or vomiting, severe headache, confusion or change in mental status, seizures Medication list: If you have any questions about your medications, please be sure to ask the pharmacy when you black pickler your prescription. You may also call your [...] HYDROcodone-acetaminophen 10-325 MG tablet Commonly known as: Surrey Take 1 (one) tablet by mouth 3 [...] patch 12 hours later. Lenore Caravana nystatin 455036 UNIT/GM powder Commonly known as: Mycostatin Apply [...] the appointment. If you need to call [facility] for any reason, you may reach us at [phone] and dial [phone] for the french edge operator. Contact Information for Follow-Up Providers Pierre Acuna DO Specialty: Family Medicine Relationship: PCP - [address] [place] [id number] Next Steps: Follow up Our records show [...] to schedulethe appointment, or you can call [phone]. Incidental Findings found on imaging: Please follow [...] encounter Discharge Instructions * Discharge Instructions* Tonie Knig PA-C - 11/03/2023 4:52 PM CDT Return precautions: Please call your healthcare provider or go to the ER for fever 100.4??F (38??C) or higher, uncontrolled pain, bleeding, trouble breathing, chest pain, uncontrolled nausea or vomiting, severe headache, confusion or change in mental status, seizures Medication list: If you have any questions about your medications, please be sure to ask the pharmacy when you black pickler your prescription. You may also call your [...] HYDROcodone-acetaminophen 10-325 MG tablet Commonly known as: Surrey Take 1 (one) tablet by mouth 3 [...] patch 12 hours later. Lenore Caravadevika nystatin 055212 UNIT/GM powder Commonly known as: Mycostatin Apply [...] the appointment. If you need to call [facility] for any reason, you may reach us at [phone] and dial [phone] for the french edge operator. Contact Information for Follow-Up Providers Pierre Acuna DO Specialty: Family Medicine Relationship: PCP - General [address] [place] [address] Next Steps: Follow up Our records show [...] schedule the appointment, or you can call [phone]. Incidental Findings found on imaging: Please follow [...] mouth once daily Each morning HYDROcodone-acetaminoph en (Surrey) 10-325 MG tabletIndications:Close d fracture of multiple [...] tablet by mouth once daily nystatin (Mycostatin) 610543 UNIT/GM powder APPLY TO AFFECTED AREA 2 [...] Acute Rehab Facility [facility] ([address] [place] [address]) [place] Made Aware of Special Needs (if applicable):N/A RN Call Report to:[phone] Fax D/C Orders to:[phone] Date/time of transfer: 11/08/23 @2pm Transportation:[facility] Certificate of Medical Necessity rationale: closed fracture of thoracic vertebra, unspecified thoracic vertebral level, initial encounter (HCC) , weakness and fall precaution Accepting MD and contact #: Dr. Bergman Completed and Signed [id number] (if applicable): N/A Family/Other Notified of Transfer (name/phone): SW spoke with patients son Harlan Fierro and he said he will meet the patient at [facility] on 11/08/23. Authorization for Fpc Facility: NA Authorization for Transportation: NA Verified Qualifying Stay(Skilled Only): NOT APPLICABLE Comments: trip # [id number] TRICIA Conde [facility] [phone] 11/07/2023 3:33 PM - * Melissa Beltran RN - 11/07/2023 11:41 AM CDT Called [facility] today spoke with Ana who verified fax number for patient's order for a TLSO brace to be faxed. Order faxed to [phone]. Ana stated that order had been received and brace shall bedelivered naomi. * Danielle Anderson OT - 11/07/2023 11:27 AM CDT [facility] Department of Physical Medicine & Rehabilitation Progress Note Patient: Promise Fierro [facility] Record Number: [id number] Date of : 1940 Age: [age] year old 11/07/23 1100 Missed Visit Missed Visit RN Cancel Awaiting custom TLSO brace. Will continue to follow. * Denilson Dc PT - 11/07/2023 11:02 AM CDT [facility] Department of Physical Medicine & Rehabilitation Patient: Promise Fierro [facility] Record Number: [id number] Date of : 1940 Age: [age] year old 11/07/23 1102 Missed Visit Missed Visit RN Cancel Awaiting TLSO brace. * Jose M Carranza MSW - 11/07/2023 9:14 AM CDT Care Coordination Progress Note Anticipated level of care at discharge: Acute Rehab Facility: Anticipated level of care provider: None: Anticipated Discharge Date: 11/06/23: Discharge Plan: SW followed up with Abigail at [facility] she reports they do not have a bed available today and weekend staff should follow up with [facility] karley Tapia ([phone]) over the weekend to see if a bed becomes available Friday or Friday (). WALTER will follow Orientation Level: Oriented X4: Family Support (Name and Phone): Extended Emergency Contact Information Primary Emergency Contact: harlan fierro Mobile Relation: Son Printer Maintainer needed? No Transportation at Discharge: Family: READMISSION [...] injections which helped initially but has taken Surrey TID 10mg/325 mg due to no longer getting back injections. She has been in rehab before in [place], [place] when she had knee replacement surgery. Patient lives alone in a house with a paid caregiver. Son lives within 1 block. Patient has not been able to get out of her house recently due to decreasing mobility from back pain andleg swelling. Son states that if she goes to rehabilitation hospital, they would like her to go to [facility]. Injuries: -2 cm laceration to posterior [...] DO 40 mg at 11/06/23 1324 HYDROcodone-acetaminophen (Surrey) 10-325 MG tablet 1 tablet 1 tablet [...] thoracic vertebra, unspecified thoracic vertebral level, initial encounter([facility]) Active Problems: Allergies Trauma Closed fracture of [...] home paroxetine 20 mg - Continue home Surrey regimen with PRN oxy - Continue multimodal [...] encouraged to follow up with PCP or triple valve tester for pruritic papules on scalp. Applied ointment [...] Beltran RN Outcome: Progressing 11/06/20231619 by Melissa Beltarn RN Outcome: Adequate for Discharge Problem: Fall [...] Urbano, PT - 11/06/2023 4:11 PM CDT [facility] Department of Physical Medicine & Rehabilitation Progress Note Patient: Promise Fierro [facility] Record Number: [id number] Date of : 1940 Age: [age] year old 11/06/23 1408 Missed Visit Missed Visit Other (Comment) PT cancelled this pm 2/2 pt using bathroom and per RN, pt awaiting TLSO brace. Will cont to follow. * Amrita Torres OT - 11/06/2023 9:23 AM CDT [facility] Physical Medicine and Rehabilitation Occupational Therapy Progress Note Patient: Promise Fierro [facility] Record Number: [id number] Date of : 1940 Age: [age] year [...] Precautions: No bending,lifting, no twisting (AAT in IMAGING SERVICES DIRECTOR brace) SUBJECTIVE: Subjective: I'm just waiting on my breakfast. Pain Assessment: Pain Location #1 Pain Scale/Observation: Numeric (0-10) Pain Rating Score #1: 0 Sedation Level #1: 1-Awake and alert OBJECTIVE: At start of therapy session, patient found in patient bedside chair and with chair alarm on General Appearance: seated in chair in NAD with IMAGING SERVICES DIRECTOR brace in place LDA: IV's: Peripheral line and Telemetry Mental Status/Cognition: Level of Consciousness-Adult: Alert Orientation Level: Oriented X4 Cognition: Follows one step commands;Safety awareness-decreased Following Commands: Follows one step commands with repetition/cues (2/2 slightly TANACROSS) Safety Judgement: Decreased awareness of need for [...] will demonstrate good understanding of spine precautions Agricultural Aircraft Pilot Goal(s): Patient to discharge to appropriate next [...] injections which helped initially but has taken Surrey TID 10mg/325 mg due to no longer getting back injections. She has been in rehab before in [place], [place] when she had knee replacement surgery. Patient lives alone in a house with a paid caregiver. Son lives within 1 block. Patient has not been able to get out of her house recently due to decreasing mobility from back pain andleg swelling. Son states that if she goes to rehabilitation hospital, they would like her to go to [facility]. Injuries: -2 cm laceration to posterior [...] endplates at these levels, which may represent xdhko-om-lejlusem microtrabecular fractures. No evidence of retropulsion. Recommend [...] endplates at these levels, which may represent tprbn-bl-hrxtrpsi microtrabecular fractures. No evidence of retropulsion. Recommend [...] endplates at these levels, which may represent xkuxr-tu-rjgtciuy microtrabecular fractures. No evidence of retropulsion. Recommend [...] endplates at these levels, which may represent thusv-vx-enxsvrqq microtrabecular fractures. No evidence of retropulsion. Recommend [...] endplates at these levels, which may represent qtqxy-ii-xgeckiyo microtrabecular fractures. No evidence of retropulsion. Recommend [...] pelvis. > Dictated by Paxton Whitley DO (resident care supervisor). IMilad MD have personally reviewed andinterpreted this examination/study. > Interpreting Provider: Milad Mcnulty MD on 11/01/2023 10:30 P M XR PELVIS 1 OR 2VW Result Date: 11/01/2023 IMPRESSION: Lucency to the right femoral neck may represent a fracture. This will be better characterized on CT chest abdomen pelvis. Report dictated by Sarah Keith Dr, MD (resident care supervisor). Loreto Jacques MD have personally reviewed and [...] vertebral body compression deformit Incidental Findings: - 2hiz6nm thyroid nodule Neuro: acute traumatic pain Thoracic [...] home paroxetine 20 mg - Continue home Surrey regimen with PRN oxy I HEENT: Posterior [...] Discharge Plan: WALTER spoke to Daphney from [facility] and patient was denied for admission. Per team's request, WALTER sent additional ARU referrals. Orientation Level: Oriented X4: Family Support (Name and Phone): Extended Emergency Contact Information Primary Emergency Contact: harlan fierro Mobile Relation: Son Printer Maintainer needed? No Transportation at Discharge: Family: READMISSION [...] questions, please contact the outpatient pharmacy at [phone]. Wade Buck [facility] at [address], [address] Floor [place], [place] [address] Hours of Operation Friday - Friday: 8:00am to 6:00pm Friday: 9:00am to 1:00pm Epic: [facility] *Ensure the patient and clinic's nearby ZIP codes box is unchecked* * Jose M Carranza MSW - 11/05/2023 11:06 AM CDT Care Coordination Progress Note Anticipated level of care at discharge: Acute Rehab Facility: Anticipated level of care provider: None: Anticipated Discharge Date: 11/04/23: Discharge Plan: WALTER [facility] with [facility] [place] ([phone]) she reports their medical team needed more clarity on how the patients current fall affects patients current condition and need for rehab. WALTER met with medical team during rounds and explained in more detail. WALTER will follow Orientation Level: Oriented X4: Family Support (Name and Phone): Extended Emergency Contact Information Primary Emergency Contact: harlan fierro Mobile Relation: Son Printer Maintainer needed? No Transportation at Discharge: Family: READMISSION [...] Torres OT - 11/05/2023 10:24 AM CDT [facility] Physical Medicine and Rehabilitation Occupational Therapy Progress Note Patient: Promise Fierro Med Record Number: [id number] Date of : 1940 Age: [age] year [...] Precautions: No bending,lifting, no twisting (AAT in IMAGING SERVICES DIRECTOR brace) SUBJECTIVE: Subjective: I might be going to the Rehab today. Pain Assessment: Pain Location #1 Pain Scale/Observation: Numeric (0-10) Pain Rating Score #1: 0 Sedation Level #1: 1-Awake and alert Pain Location : Head Pain Intervention(s): Declined Intervention OBJECTIVE: At start of therapy session, patient found in patient bedside chair and with chair alarm on General Appearance: seated in chair in NAD, IMAGING SERVICES DIRECTOR brace in place LDA: IV's: Peripheral line and Telemetry Mental Status/Cognition: Level of Consciousness-Adult: Alert Orientation Level: Oriented X4 Cognition: Follows one step commands;Safety awareness-decreased Following Commands: Follows one step commands with repetition/cues (2/2 TANACROSS) Safety Judgement: Decreased awareness of need for [...] will demonstrate good understanding of spine precautions [facility] Goal(s): Patient to discharge to appropriate next [...] Dc, PT - 11/05/2023 9:53 AM CDT [facility] Physical Medicine and Rehabilitation Physical Therapy Progress Note Patient: Promise Fierro [facility] Record Number: [id number] Date of : 1940 Age: [age] year [...] as Tolerated Spine Precautions: Yes Spine Precautions: (IMAGING SERVICES DIRECTOR) OBJECTIVE: At start of therapy session, patient found in patient bedside chair and with chair alarm on General Appearance: NAD; IMAGING SERVICES DIRECTOR donned LDAs: IV's: Peripheral line Vitals: (*Assess [...] and with appropriate AD - added 11/03 Agricultural Aircraft Pilot Goal(s): Patient to discharge to appropriate next [...] injections which helped initially but has taken Surrey TID 10mg/325 mg due to no longer getting back injections. She has been in rehab before in [place] when she had knee replacement surgery. Patient lives alone in a house with a paid caregiver. Son lives within 1 block. Patient has not been able to get out of her house recently due to decreasing mobility from back pain andleg swelling. Son states that if she goes to rehabilitation hospital, they would like her to go to [facility]. Injuries: 2 cm laceration to posterior [...] endplates at these levels, which may represent kefcx-la-cvncfqdq microtrabecular fractures. No evidence of retropulsion. Recommend [...] endplates at these levels, which may represent wtrgw-jr-kqwzlalj microtrabecular fractures. No evidence of retropulsion. Recommend [...] endplates at these levels, which may represent bzssm-ro-htdracdi microtrabecular fractures. No evidence of retropulsion. Recommend [...] endplates at these levels, which may represent auiaf-zy-vhaciyho microtrabecular fractures. No evidence of retropulsion. Recommend [...] endplates at these levels, which may represent zzncg-yv-rimqqaeq microtrabecular fractures. No evidence of retropulsion. Recommend [...] pelvis. > Dictated by Paxton Whitley DO (resident care supervisor). I, Milad Mcnulty MD have personally reviewed andinterpreted this examination/study. > Interpreting Provider: Milad Mcnulty MD on 11/01/2023 10:30 P M XR PELVIS 1 OR 2VW Result Date: 11/01/2023 IMPRESSION: Lucency to the right femoral neck may represent a fracture. This will be better characterized on CT chest abdomen pelvis. Report dictated by Sarah Keith Dr, MD (resident care supervisor). Loreto Jacques MD have personally reviewed and interpreted this examination/study. > Interpreting Provider: Loreto Bone MD on 11/01/2023 9:17 PM Assessment and Plan: Promise Fierro is a 83 year old female s/p GLF (on [employer]) here for treatment of injuries listedbelow: Injuries: -2 cm laceration to posterior scalp - repaired in ED with 3-0 chromic gut suture -Left rib 5-9 fractures -Age indeterminate T5 vertebral body compression deformit Incidental Findings: - 9vvh9ez thyroid nodule Neuro: acute traumatic pain Thoracic vertebra fracture Anxiety Insomnia MDD - Does not require further inpatient neurosurgery care. Exam and imaging have remained stable. Theyrecommend: - Activity as tolerated in brace - Can resume anticoagulation as necessary - Follow up with Dr. Gutiérrez or Latrcie Barakat outpatient in 6-8 weeks with thoracic upright XR for imaging - continue multimodal analgesia regimen - Geriatric medicine recommends Melatonin 6 mg at hs - On home paroxetine 20 mg - Continue home Surrey regimen with PRN oxy I HEENT: Posterior [...] daily activities Outcome: Progressing * Wisam Pinedo, MORTGAGE BRANCH MANAGER-IRON PILER - 11/04/2023 12:57 PM CDT GERIATRIC MEDICINE [...] , AST , ALT in the last 369[address] hours. Coagulation: Recent Labs Component Name 11/01/231955 [...] endplates at these levels, which may represent beoah-pe-ajvcikee microtrabecular fractures. No evidence of retropulsion. Recommend [...] endplates at these levels, which may represent uliaz-nh-jzjtbepd microtrabecular fractures. No evidence of retropulsion. Recommend [...] endplates at these levels, which may represent aggjv-mn-bsuiouoi microtrabecular fractures. No evidence of retropulsion. Recommend [...] endplates at these levels, which may represent fkxvo-hk-qjdjrsvv microtrabecular fractures. No evidence of retropulsion. Recommend [...] endplates at these levels, which may represent qogbv-pa-ezbjybio microtrabecular fractures. No evidence of retropulsion. Recommend [...] pelvis. > Dictated by Paxton Whitley DO (resident care supervisor). IMilad MD have personally reviewed andinterpreted this examination/study. > Interpreting Provider: Milad Mcnulty MD on 11/01/2023 10:30 P M XR PELVIS 1 OR 2VW Result Date: 11/01/2023 IMPRESSION: Lucency to the right femoral neck may represent a fracture. This will be better characterized on CT chest abdomen pelvis. Report dictated by Sarah Keith Dr, MD (resident care supervisor). Loreto Jacques MD have personally reviewed and [...] Pinedo, ANP-, Geriatrics 11/04/2023 12:58 PM Pager: [phone] * Mireya Dennis RN - 11/04/2023 12:26 [...] he reports he has already [facility] with [facility] for beds available. WALTER agreed to send over the referral for rhab for both facilities. Continued Care and Services - Admitted Since 11/01/2023 Destination Service Provider Request Status Selected Services Address Phone Fax Patient Preferred [facility] Pending - Request Sent N/A [id number] [facility] [phone] -- [facility] Pending - Request Sent N/A [id number] [facility] [phone] -- UPDATE: WALTER spoke with Daphney from [facility] ([phone]) and she said the patient has been accepted into their rehab. A bed should be available 11/05/23. Orientation Level: Oriented X4: Family Support (Name and Phone): Extended Emergency Contact Information Primary Emergency Contact: harlan fierro Mobile Relation: Son Printer Maintainer needed? No Transportation at Discharge: Family: READMISSION RISK SCORE is 14 at 12:16 PM 11/04/2023.: Name: TRICIA Conde * DaoDenilson, PT - 11/04/2023 10:05 AM CDT [facility] Physical Medicine and Rehabilitation Physical Therapy Progress Note Patient: Promise Fierro Med Record Number: [id number] Date of : 1940 Age: [age] year [...] as Tolerated Spine Precautions: Yes Spine Precautions: (IMAGING SERVICES DIRECTOR Jacob Olsen) OBJECTIVE: At start of therapy session, patient found in patient bedside chair and with chair alarm on General Appearance: NAD; IMAGING SERVICES DIRECTOR donned LDAs: IV's: Peripheral line Vitals: (*Assess [...] and with appropriate AD - added 11/03 Agricultural Aircraft Pilot Goal(s): Patient to discharge to appropriate next [...] on ARU referral for dc placement. This technical publications writer reached out to SW via [place] to updated. Orientation Level: Oriented X4: Family Support (Name and Phone): Extended Emergency Contact Information Primary Emergency Contact: harlan fierro Mobile Relation: Son Printer Maintainer needed? No Transportation at Discharge: : EMS READMISSION RISK SCORE is 14 at 9:51 AM 11/04/2023.: Tiffany Lynn RN, BSN Basket Grader [phone] * Amrita Torres OT - 11/04/2023 8:41 AM CDT [facility] Physical Medicine and Rehabilitation Occupational Therapy Progress Note Patient: Promise Fierro Med Record Number: [id number] Date of : 1940 Age: [age] year [...] Precautions: No bending,lifting, no twisting (AAT in IMAGING SERVICES DIRECTOR brace) SUBJECTIVE: Subjective: I'd love to get up. Pain Assessment: Pain Location #1 Pain Scale/Observation: Numeric (0-10) Pain Rating Score #1: 8 Sedation Level #1: 1-Awake and alert Pain Location : Head Pain Intervention(s): Declined Intervention OBJECTIVE: At start of therapy session, patient found in bed and with bed alarm on General Appearance: supine in NAD with IMAGING SERVICES DIRECTOR brace in place LDA: IV's: Peripheral line [...] Follows one step commands with repetition/cues (2/2 TANACROSS) Safety Judgement: Decreased awareness of need for [...] will demonstrate good understanding of spine precautions Agricultural Aircraft Pilot Goal(s): Patient to discharge to appropriate next [...] injections which helped initially but has taken Surrey TID 10mg/325 mg due to no longer getting back injections. She has been in rehab before in [place], [place] when she had knee replacement surgery. Patient lives alone in a house with a paid caregiver. Son lives within 1 block. Patient has not been able to get out of her house recently due to decreasing mobility from back pain andleg swelling. Son states that if she goes to rehabilitation hospital, they would like her to go to [facility]. Injuries: 2 cm laceration to posterior [...] endplates at these levels, which may represent fvthi-nr-wnadjmej microtrabecular fractures. No evidence of retropulsion. Recommend [...] endplates at these levels, which may represent vsxiu-xb-glyviobq microtrabecular fractures. No evidence of retropulsion. Recommend [...] endplates at these levels, which may represent snwhy-sl-dxcxthkx microtrabecular fractures. No evidence of retropulsion. Recommend [...] endplates at these levels, which may represent zcomm-rn-zvlzpkwj microtrabecular fractures. No evidence of retropulsion. Recommend [...] endplates at these levels, which may represent wlykk-dc-tgapcyjz microtrabecular fractures. No evidence of retropulsion. Recommend [...] pelvis. > Dictated by Paxton Whitley DO (resident care supervisor). I, Milad Mcnulty MD have personally reviewed andinterpreted this examination/study. > Interpreting Provider: Milad Mcnulty MD on 11/01/2023 10:30 P M XR PELVIS 1 OR 2VW Result Date: 11/01/2023 IMPRESSION: Lucency to the right femoral neck may represent a fracture. This will be better characterized on CT chest abdomen pelvis. Report dictated by Sarah Keith Dr, MD (resident care supervisor). I, Loreto Bone MD have personally reviewed [...] vertebral body compression deformit Incidental Findings: - 9hde5gg thyroid nodule Neuro: acute posttraumatic pain Thoracic [...] On home paroxetine 20 mg -Restarted home Surrey regimen with PRN oxy I HEENT: Posterior [...] PA-C 11/03/2023 4:50 PM * Wisam Pinedo APRN-IRON PILER - 11/03/2023 2:58 PM CDT GERIATRIC MEDICINE [...] , AST , ALT in the last 67458 hours. Coagulation: Recent Labs Component Name 11/01/231955 [...] endplates at these levels, which may represent pcxfc-da-nbcgezvc microtrabecular fractures. No evidence of retropulsion. Recommend [...] endplates at these levels, which may represent kdxkw-wb-ijwopzoh microtrabecular fractures. No evidence of retropulsion. Recommend [...] endplates at these levels, which may represent kvwdo-wf-djarpbfr microtrabecular fractures. No evidence of retropulsion. Recommend [...] endplates at these levels, which may represent jfjyr-ef-hxjmhjyg microtrabecular fractures. No evidence of retropulsion. Recommend [...] endplates at these levels, which may represent esjno-qj-fmaogtfn microtrabecular fractures. No evidence of retropulsion. Recommend [...] pelvis. > Dictated by Paxton Whitley DO (resident care supervisor). I, Milad Mcnulty MD have personally reviewed andinterpreted this examination/study. > Interpreting Provider: Milad Mcnulty MD on 11/01/2023 10:30 P M XR PELVIS 1 OR 2VW Result Date: 11/01/2023 IMPRESSION: Lucency to the right femoral neck may represent a fracture. This will be better characterized on CT chest abdomen pelvis. Report dictated by Sarahkimberley Keith Dr, MD (resident care supervisor). I, Loreto Bone MD have personally reviewed [...] Pinedo, ANP-BC, Geriatrics 11/03/2023 2:59 PM Pager: [phone] * Tiffany Lynn RN - 11/03/2023 12:37 PM CDT Care Coordination Progress Note Anticipated level of care at discharge: Unknown: Anticipated level of care provider: None: Anticipated Discharge Date: 11/04/23: Discharge Plan: Waiting on recommendations from PT/OT. Pt on strict bedrest. Orientation Level: Oriented X4: Family Support (Name and Phone): Extended Emergency Contact Information Primary Emergency Contact: harlan fierro Mobile Relation: Son Printer Maintainer needed? No Transportation at Discharge: : READMISSION RISK SCORE is 13 at 12:37 PM 11/03/2023.: Tiffany Lynn RN, BSN Basket Grader [phone] \ * Denilson Dc PT - 11/03/2023 9:39 AM CDT [facility] Physical Medicine and Rehabilitation Physical Therapy Initial Evaluation Note Patient: Promise Fierro Med Record Number: [id number] Date of : 1940 Age: [age] year [...] as Tolerated Spine Precautions: Yes Spine Precautions: (IMAGING SERVICES DIRECTOR Jacob Olsen) DIAGNOSIS: Patient Active Problem List: Allergies Trauma Other closed fracture of thoracic vertebra, unspecified thoracic vertebral level, initial encounter([facility]) Closed fracture of multiple ribs of left side, initial encounter Acute traumatic pain Scalp laceration Past Medical History: Diagnosis Date Arthritis DVT (deep venous thrombosis) ([facility]) Esophageal stricture GERD (gastroesophageal reflux disease) HLD (hyperlipidemia) Hypertension Hypothyroidism Nontoxic single thyroid nodule Other pulmonary embolism without acute cor pulmonale ([facility]) SUBJECTIVE: Subjective: Agreeable to therapy evaluation PATIENT [...] home now Who assists you at home?: Dietitian (4 days x 15 hrs total/week) Oxygen [...] and with no alarm. General Appearance: NAD; IMAGING SERVICES DIRECTOR donned LDAs: IV's: Peripheral line Edema: no [...] will verbalize adequate understanding of spinal precautions. [facility] Goal(s): To be determined Equipment Issued: gait [...] L, OT - 11/03/2023 9:37 AM CDT [facility] Physical Medicine and Rehabilitation Occupational Therapy Initial Evaluation Note Patient: Promise Fierro [facility] Record Number: [id number] Date of : 1940 Age: [age] year [...] as tolerated PRECAUTIONS: Weight Bearing Status: (WBAT; IMAGING SERVICES DIRECTOR brace) Spine Precautions: Log rolling;No bending,lifting, no twisting DIAGNOSIS: Patient Active Problem List: Allergies Trauma Other closed fracture of thoracic vertebra, unspecified thoracic vertebral level, initial encounter([facility]) Closed fracture of multiple ribs of left side, initial encounter Acute traumatic pain Past Medical History: Diagnosis Date Arthritis DVT (deep venous thrombosis) ([facility]) Esophageal stricture GERD (gastroesophageal reflux disease) HLD (hyperlipidemia) Hypertension Hypothyroidism Nontoxic single thyroid nodule Other pulmonary embolism without acute cor pulmonale ([facility]) SUBJECTIVE: Subjective: Pt is agreeable to participate. Pt is TANACROSS. Pt is eager to ambulate to toilet [...] home now Who assists you at home?: Dietitian (4 days x 15 hrs total/week) Oxygen [...] Appearance: 83F supine in bed in NAD, IMAGING SERVICES DIRECTOR donned. LDA: IV's: Peripheral line & external [...] in order set. Mental Status/Cognition: Pt is TANACROSS but follows simple 1 step commands with [...] will demonstrate good understanding of spine precautions [facility] Goal(s): Patient to discharge to appropriate next [...] Dc PT - 11/03/2023 8:24 AM CDT [facility] Department of Physical Medicine & Rehabilitation Patient: Promise Fierro [facility] Record Number: [id number] Date of : 1940 Age: [age] year old 11/03/23 0824 Missed Visit Missed Visit Bedrest;Other (Comment);No Activity Order Pt currently on strict bed rest. Please update with appropriate activity order including brace if patient is appropriate for therapy evaluation. * Danielle Anderson OT - 11/03/2023 7:56 AM CDT [facility] Department of Physical Medicine & Rehabilitation Progress Note Patient: Promise Fierro [facility] Record Number: [id number] Date of : 1940 Age: [age] year [...] injections which helped initially but has taken Surrey tid 10mg/325 mg due to no longer getting back injections. She has been in rehab before in [place], [place] when she had knee replacement surgery. Patient lives alone in a house with a paid caregiver. Son lives within 1 block. Patient has not been able to get out of her house recently due to decreasing mobility from back pain andleg swelling. Son states that if she goes to rehabilitation hospital, they would like her to go to [facility]. Injuries: 2 cm laceration to posterior [...] 4 mg 4 mg Oral q6h PRN aTurus Ferrari MD Or ondansetron (Zofran) injection 4 [...] BM: 11/02/23 Activity: Activity as tolerated in IMAGING SERVICES DIRECTOR brace Physical Exam Constitutional: General: She is [...] thoracic vertebra, unspecified thoracic vertebral level, initial encounter([facility]) Closed fracture of multiple ribs of left [...] On home paroxetine 20 mg -Restarted home Surrey regimen with PRN oxy if needed HEENT: [...] their follow up appointment, orthey can call [phone]. Neurosurgery follow up information also placed in [facility] discharge navigator. Gulshan Contreras MD 11/02/2023 5:14 PM * Abigail Zamora MSW - 11/02/2023 3:12 PM CDT IMAGING SERVICES DIRECTOR brace ordered through [employer] [facility]--manufacturer representative to come to ED on 11/02/2023 [...] DATE/TIME OF EXAM: 11/01/2023 7:48 PM, LOCATION: [facility] HISTORY: Trauma ADDITIONAL CLINICAL INFORMATION: Ordering Provider [...] dependent subsegmental atelectasis of the lung apices. Tmeb-du-yyfifisq calcific atherosclerosis of the carotid bulbs and moderate calcific atherosclerosis of the common carotid arteries. Multiple calcified mediastinal lymph nodes that is suggestive of prior healed granulomatous disease. THORACIC SPINE: ALIGNMENT: Mild kyphosis centered at the T5 level and gbqv-ot-ypdhezsv levoconvex curvature of the upper thoracic spine without significant listhesis. No traumatic malalignment. BONES: Age-indeterminate compression fracture deformity of the T5 vertebral body superior endplate associated with a thin sclerotic line and with approximately 30% height loss anteriorly, which may represent an hadhf-qv-jbxwlvdl microtrabecular fracture. Age-indeterminate compression fracture deformity of the T6 vertebral body superior endplate associated with a thin sclerotic line and with approximately 30% height loss centrally, which may represent an yfkmx-fm-ajepfybu microtrabecular fracture. Chronic-appearing rraksvb-xq-vuqg height loss remaining thoracic vertebral bodies. No retropulsion at any level. Osseous structures are markedly demineralized. DISCS: Multilevel mild disc space narrowing. DEGENERATIVE CHANGES: Overall hcwz-jx-zxeklzfg multilevel degenerative changes. SPINAL CANAL/NEUROFORAMEN: No significant spinal canal stenosis. High-grade neuroforaminal narrowing at the right T2-T3 through T5-T6 levels and left T10-T11 level in addition to bvgc-ma-bfqelncv neuroforaminal narrowing elsewhere. SOFT TISSUES: Visualized soft tissues are normal. OTHER: Dependent atelectasis of the lungs bilaterally. Mildly tortuous thoracic aorta with lmylvadl-nt-yppapl calcific atherosclerosis. Multiple calcified mediastinal lymph nodes [...] phenomena at all levels. DEGENERATIVE CHANGES: Overall eowzvxfx-qh-qvoyqr multilevel degenerative change, characterized by varying degrees of posterior disc bulges, ligamentum flavum hypertrophy, and facet arthropathy. SPINAL CANAL/NEUROFORAMEN: Multilevel spinal canal stenoses that is notably mild at the T12-L1 and L2-L3 levels, vschppmx-ru-wzvsjj at the L3-L4 and L4-L5 levels, and [...] endplates at these levels, which may represent ikjvd-pp-jsmkcvfw microtrabecular fractures. No evidence of retropulsion. Recommend [...] tablet 5 mg, Oral, Once [COMPLETED] Tdap (oudksbz-kalgxqtedk-trprj pertussis) (Boostrix) (7y+) injection 0.5 mL, Intramuscular, [...] awake, alert, sensation intact Deltoid Bicep Tricep Director Shopper Marketing Wrist Ext Finger ext Hip Flexor Quad [...] PE on Eliquis, HLD who presented to [facility] on 11/01/2023 s/p ground level fall. CT thoracic spine demonstrated age- indeterminate compression fracture deformities ofT5 and T6 . Patient is neurologically intact with tenderness to palpation at those levels. Plan: - Continue to monitor neuro exam q4 hours - Please obtain IMAGING SERVICES DIRECTOR brace and X-rays uprights of thoracic spine [...] who was brought in by EMS from [facility] as level 2 trauma after ground level fall. Per EMS, patient was using her walker when she hit the curb on the sidewalk and fell to the ground hitting her head w/ +LOC. Patient reports talking to neighbors after regaining consciousness. Patient AOx4 on EMS arrival and given LR in route to hospital.On admission to [facility] patient complains of headache to the [...] endplates at these levels, which may represent vrvhl-bp-yybashkh microtrabecular fractures. No evidence of retropulsion. Recommend [...] endplates at these levels, which may represent dnera-qz-hamsuzwl microtrabecular fractures. No evidence of retropulsion. Recommend [...] endplates at these levels, which may represent oipzj-yq-kgzkahhz microtrabecular fractures. No evidence of retropulsion. Recommend [...] endplates at these levels, which may represent syzqo-jo-ccgqwbha microtrabecular fractures. No evidence of retropulsion. Recommend [...] endplates at these levels, which may represent itfmr-lc-teguqqza microtrabecular fractures. No evidence of retropulsion. Recommend [...] pelvis. > Dictated by Paxton Whitley DO (resident care supervisor). IMilad MD have personally reviewed andinterpreted this examination/study. > Interpreting Provider: Milad Mcnulty MD on 11/01/2023 10:30 P M XR PELVIS 1 OR 2VW Result Date: 11/01/2023 IMPRESSION: Lucency to the right femoral neck may represent a fracture. This will be better characterized on CT chest abdomen pelvis. Report dictated by Sarah Keith Dr, MD (resident care supervisor). ILoreto MD have personally reviewed and interpreted this examination/study. > Interpreting Provider: Loreto Bone MD on 11/01/2023 9:17 PM ASSESSMENT: Promise Fierro is an 83 yr old F who presents to [facility] as level 2 trauma following unwitnessed [...] trauma: 83F/ground level fall. Brought in from [place], [place] by [facility]. PerEMS, no family on scene but pt's son is aware and on his way to [facility]. T05/T05 documented in this encounter H&P [...] who was brought in by EMS from [facility] as level 2 trauma after ground level fall. Per EMS, patient was using her walker when she hit the curb on the sidewalk and fell to the ground hitting her head w/ +LOC. Patient reports talking to neighbors after regaining consciousness. Patient AOx4 on EMS arrival and given LR in route to hospital.On admission to [facility] patient complains of headache to the back of head and L chest tenderness and nausea, is hypertensive w/ systolic in 220's. Complains of Pain: Yes, back of the head and L chest. Products & Meds: [facility] Crystalloid Boluses: Yes, 0.9% NaCl 1L [...] , VILMA , LIPASE in the last 93169 hours. Recent Labs Component Name 11/01/231955 INR [...] Report dictated by Sarah Keith Dr, MD (resident care supervisor). I, Loreto Bone MD have personally reviewed [...] 83 yr old F who presents to [facility] as level 2 trauma following unwitnessed [...] IVs Dispo: Trauma floor Taurus Ferrari MD [facility] November 01, 2023 10:16 PM Patient seen [...] Name: Promise Fierro Medical Record Number (MRN): [id number] : 1940 Today's Date: 11/06/23 Admission Date: 11/01/2023 Ortho Trauma Rehabilitation Consult Active issues lower extremity edema, resuming home dose of Lasix today per primary team Purpose for induration of IMAGING SERVICES DIRECTOR use Need for placement in inpatient rehab [...] thoracic vertebra, unspecified thoracic vertebral level, initial encounter([facility]) Closed fracture of multiple ribs of left side, initial encounter Acute traumatic pain Scalp laceration On admission patient had posterior scalp laceration repaired, fluctuating hypertension requiring metoprolol, losartan, new prescription for amlodipine. Lasix currently being held for geriatric medicine due to near syncopal episodes. 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 -Nonopioid pain control, mobilization in a graduated, [...] patient in a chair that can provide chyv-ix-ttgrm offloading. -Continue to have patient evaluated by PT, OT, and CONCRETE TECHNICIAN while inpatient and schedule outpatient follow up [...] above recommendations. I may be reached at [phone] or [email or web address] M-F 01-25. Dr. Harrsion Silva, Ortho Trauma Rehabilitation Nurse Intern Level of Service Note: timespent: 110 minutes in the care of this patient today including extensivecoordination with primary team regarding discharge and disposition These notes are dictated by dragon naturally speaking. Errors in dictation are always possible. Please contact the provider with any questions The best way to reach me is through Secure Chat. <<<<<< Meds, Labs, PT, OT, CONCRETE TECHNICIAN, ROS, PE are below >>>>> Review of Systems REVIEW OF SYSTEMS A 14 point ROS was obtained and was is negative except for the following: Challenges with mobility,desire to discharge to rehab Physical Exam General: Alert, pleasant, NAD, well-nourished, well-developed Psychiatric: appropriate HEENT: Well-approximated suture closure of laceration on posterior head, moist Respiratory: breathing comfortably on room air slightly restricted by presence of IMAGING SERVICES DIRECTOR, Cardiovascular: lower extremity edema Present Abdomen: Soft, [...] (Pepcid) tablet 20 mg, Oral, BID HYDROcodone-acetaminophen (Surrey) 10-325 MG tablet 1 tablet, Oral, TID [...] by mouth once daily Each morning, HYDROcodone-acetaminophen (Surrey) 10-325 MG tablet, Take 1 (one) tablet [...] tablet by mouth once daily, nystatin (Mycostatin) 068248 UNIT/GM powder, Apply to affected area 2 [...] alone in an accessible home, has a odd jobs day worker for a couple of hours a dayas needed -Contact: Extended Emergency Contact Information Primary Emergency Contact: harlan fierro Relation: Son Printer Maintainer needed? No Pre-hospitalization Function IND Current Functional Status MaxA-SBA Current Therapy Evaluations: PT 11/04 [facility] Physical Medicine and Rehabilitation Physical Therapy Progress Note Patient: Promise Fierro Med Record Number: [id number] Date of : 1940 Age: [age] year [...] as Tolerated Spine Precautions: Yes Spine Precautions: (IMAGING SERVICES DIRECTOR) OBJECTIVE: At start of therapy session, patient found in patient bedside chair and with chair alarm on General Appearance: NAD; IMAGING SERVICES DIRECTOR donned LDAs: IV's: Peripheral line Vitals: (*Assess [...] and with appropriate AD - added 11/03 [facility] Goal(s): Patient to discharge to appropriate next level of inpatient care. INFORMED CONSENT TO TREATMENT: Plan of care including recommended therapy, goals and frequency, discussed with patient who understands and agrees to proceed. Equipment Issued: none Plan: Patient continues to benefit from skilled therapy services., Continue with goals as established. If patient is disch OT 11/05 [facility] Physical Medicine and Rehabilitation Occupational Therapy Progress Note Patient: Promise Fierro [facility] Record Number: [id number] Date of : 1940 Age: [age] year [...] Precautions: No bending,lifting, no twisting (AAT in IMAGING SERVICES DIRECTOR brace) SUBJECTIVE: Subjective: I'm just waiting on my breakfast. Pain Assessment: Pain Location #1 Pain Scale/Observation: Numeric (0-10) Pain Rating Score #1: 0 Sedation Level #1: 1-Awake and alert OBJECTIVE: At start of therapy session, patient found in patient bedside chair and with chair alarm on General Appearance: seated in chair in NAD with IMAGING SERVICES DIRECTOR brace in place LDA: IV's: Peripheral line and Telemetry Mental Status/Cognition: Level of Consciousness-Adult: Alert Orientation Level: Oriented X4 Cognition: Follows one step commands;Safety awareness-decreased Following Commands: Follows one step commands with repetition/cues (2/2 slightly TANACROSS) Safety Judgement: Decreased awareness of need for [...] will demonstrate good understanding of spine precautions [facility] Goal(s): Patient to discharge to appropriate next [...] DATE/TIME OF EXAM: 11/01/2023 7:48 PM, LOCATION: [facility] HISTORY: Trauma ADDITIONAL CLINICAL INFORMATION: Ordering Provider [...] dependent subsegmental atelectasis of the lung apices. Dcgx-sh-ggiqzeir calcific atherosclerosis of the carotid bulbs and moderate calcific atherosclerosis of the common carotid arteries. Multiple calcified mediastinal lymph nodes that is suggestive of prior healed granulomatous disease. THORACIC SPINE: ALIGNMENT: Mild kyphosis centered at the T5 level and ppas-tm-jmkbsaum levoconvex curvature of the upper thoracic spine without significant listhesis. No traumatic malalignment. BONES: Age-indeterminate compression fracture deformity of the T5 vertebral body superior endplate associated with a thin sclerotic line and with approximately 30% height loss anteriorly, which may represent an bmmoo-vc-zctskpwm microtrabecular fracture. Age-indeterminate compression fracture deformity of the T6 vertebral body superior endplate associated with a thin sclerotic line and with approximately 30% height loss centrally, which may represent an plrwj-xj-zapzgspb microtrabecular fracture. Chronic-appearing zjdahdh-ca-wyyn height loss remaining thoracic vertebral bodies. No retropulsion at any level. Osseous structures are markedly demineralized. DISCS: Multilevel mild disc space narrowing. DEGENERATIVE CHANGES: Overall wmec-kc-hhucmlny multilevel degenerative changes. SPINAL CANAL/NEUROFORAMEN: No significant spinal canal stenosis. High-grade neuroforaminal narrowing at the right T2-T3 through T5-T6 levels and left T10-T11 level in addition to qesv-hm-bvuqnjzw neuroforaminal narrowing elsewhere. SOFT TISSUES: Visualized soft tissues are normal. OTHER: Dependent atelectasis of the lungs bilaterally. Mildly tortuous thoracic aorta with ufqsdpju-xz-zgpfkx calcific atherosclerosis. Multiple calcified mediastinal lymph nodes [...] phenomena at all levels. DEGENERATIVE CHANGES: Overall cjugainr-vz-rgjkfp multilevel degenerative change, characterized by varying degrees of posterior disc bulges, ligamentum flavum hypertrophy, and facet arthropathy. SPINAL CANAL/NEUROFORAMEN: Multilevel spinal canal stenoses that is notably mild at the T12-L1 and L2-L3 levels, qpgzjfie-yj-dlbdqk at the L3-L4 and L4-L5 levels, and [...] endplates at these levels, which may represent jlegs-ho-obgzryfo microtrabecular fractures. No evidence of retropulsion. Recommend [...] CDTAssociated Order(s): IP CONSULT TO GERIATRIC MEDICINE [facility] Geriatric New Patient Consult Promise Fierro [id number] Age: [age] year old. Date of : [...] injections which helped initially but has taken Surrey tid 10mg/325 mg due to no longer getting back injections. She indicates some numbness in her feet bilat. [place] [place], [place] when she had knee replacement surgery. [...] daily Pantoprazole 40 mg Melaonin at [facility] [place] 10.325 tid Lipitor 40 Thyroxine 75 mcg [...] endplates at these levels, which may represent xzfan-cz-dqewdkfh microtrabecular fractures. No evidence of retropulsion. Recommend [...] endplates at these levels, which may represent bkwcw-mj-oxxhcidx microtrabecular fractures. No evidence of retropulsion. Recommend [...] endplates at these levels, which may represent rxkbv-pt-uxcrrloh microtrabecular fractures. No evidence of retropulsion. Recommend [...] endplates at these levels, which may represent ksaet-kk-qeojlqyy microtrabecular fractures. No evidence of retropulsion. Recommend [...] endplates at these levels, which may represent efvcx-oe-upyangqx microtrabecular fractures. No evidence of retropulsion. Recommend [...] pelvis. > Dictated by Paxton Whitley DO (resident care supervisor). Milad Jacques MD have personally reviewed andinterpreted this examination/study. > Interpreting Provider: Milad Mcnulty MD on 11/01/2023 10:30 P M XR PELVIS 1 OR 2VW Result Date: 11/01/2023 IMPRESSION: Lucency to the right femoral neck may represent a fracture. This will be better characterized on CT chest abdomen pelvis. Report dictated by Sarah Keith Dr, MD (resident care supervisor). Loreto Jacques MD have personally reviewed and [...] Acute Pain Service Consult Note Promise Fierro [phone] 1940 [id number] Date of Consult: 11/02/2023 Reason for Consult: Rib fx Requesting Physician: Trauma surgery Subjective Admission History Reason for Admission: GLF Date of Admission: 11/01/2023 POD: Pain Service day: 1 Promise Fierro is an 83 yr old F w/ PMHx of HTN, PE, HLD who was brought in by EMS from [facility] as level 2 trauma after ground [...] % contrast Intravenous Contrast - Once Kathryn Qauch MD 150 mL at 11/01/23 1913 latanoprost [...] , ALB , PROTEIN in the last 70811 hours. Invalid input(s): PREALB Cardiac Enzymes: No results for input(s): CKMB , CKTOTAL , TROPONINI , CK in the last 62952 hours. Arterial Blood Gas: No results for input(s): PH , PCO2 , PO2 , HCO3 , BE , FIO2 in the last 57343 hours. Assessment/Recommendations Assessment Promise Fierro is an 83 yr old F w/ PMHx of HTN, PE, HLD who was brought in by EMS from [facility] as level 2 trauma after ground [...] Salomon's attestation for more details. Please page [phone] (PAIN) with any further pain management questions [...] PE on Eliquis, HLD who presented to [facility] on 11/01/2023 s/p ground level fall. Patient was using her walker when she hit curb and fell to ground, hitting head, +LOC. [facility] hypertensive to 220s, scalp lac, chest and back pain.CT thoracic spine demonstrated age-indeterminate compression fracture deformities of T5 and T6 . Neurosurgery spine consulted at this time. [facility] NEURO SPINAL SURGERY HIGH RISK VARIABLES [...] awake, alert, sensation intact Deltoid Bicep Tricep [employer] Wrist Ext Finger ext Hip Flexor Quad Hamstring Tib Ant Gastroc EHL Right 5 5 5 5 5 5 5 5 5 5 5 5 Left 5 5 5 5 5 5 4* 5 5 5 5 5 Pain limited weakness Pinpoint tenderness to palpation between shoulder blades LABORATORY No results for input(s): WBC , HGB , HCT , PLTCOUNT in the last 75374 hours. Recent Labs Component Name 11/01/231955 NA 138 POTASSIUM 4.3 CO2 21* BUN 20 CREATININE 0.62 GLUCOSE 92 Recent Labs Component Name 11/01/231955 INR 1.3 RADIOLOGY EXAM: CT HEAD WO CONTRAST, CT FACIAL BONES WO CONTRAST, CT CERVICAL SPINE WO CONTRAST, CT THORACIC SPINE WO CONTRAST, CT LUMBAR SPINE WO CONTRAST, DATE/TIME OF EXAM: 11/01/2023 7:48 PM, LOCATION: [facility] HISTORY: Trauma ADDITIONAL CLINICAL INFORMATION: Ordering Provider [...] dependent subsegmental atelectasis of the lung apices. Snub-jc-xzgkfltw calcific atherosclerosis of the carotid bulbs and moderate calcific atherosclerosis of the common carotid arteries. Multiple calcified mediastinal lymph nodes that is suggestive of prior healed granulomatous disease. THORACIC SPINE: ALIGNMENT: Mild kyphosis centered at the T5 level and snlg-iw-bijgulxd levoconvex curvature of the upper thoracic spine without significant listhesis. No traumatic malalignment. BONES: Age-indeterminate compression fracture deformity of the T5 vertebral body superior endplate associated with a thin sclerotic line and with approximately 30% height loss anteriorly, which may represent an kjcrb-rr-wnxtpjfw microtrabecular fracture. Age-indeterminate compression fracture deformity of the T6 vertebral body superior endplate associated with a thin sclerotic line and with approximately 30% height loss centrally, which may represent an bchxm-zg-jzkywuwn microtrabecular fracture. Chronic-appearing qffgzfe-yr-xdzn height loss remaining thoracic vertebral bodies. No retropulsion at any level. Osseous structures are markedly demineralized. DISCS: Multilevel mild disc space narrowing. DEGENERATIVE CHANGES: Overall ohks-nj-uoljrybq multilevel degenerative changes. SPINAL CANAL/NEUROFORAMEN: No significant spinal canal stenosis. High-grade neuroforaminal narrowing at the right T2-T3 through T5-T6 levels and left T10-T11 level in addition to bjyy-ye-ibtlptxg neuroforaminal narrowing elsewhere. SOFT TISSUES: Visualized soft tissues are normal. OTHER: Dependent atelectasis of the lungs bilaterally. Mildly tortuous thoracic aorta with xqzowagz-uq-teplos calcific atherosclerosis. Multiple calcified mediastinal lymph nodes [...] phenomena at all levels. DEGENERATIVE CHANGES: Overall bosnsamw-dq-mlesqu multilevel degenerative change, characterized by varying degrees of posterior disc bulges, ligamentum flavum hypertrophy, and facet arthropathy. SPINAL CANAL/NEUROFORAMEN: Multilevel spinal canal stenoses that is notably mild at the T12-L1 and L2-L3 levels, placwjfi-xl-uvhmlr at the L3-L4 and L4-L5 levels, and [...] endplates at these levels, which may represent vrswq-po-dfduldaf microtrabecular fractures. No evidence of retropulsion. Recommend [...] PE on Eliquis, HLD who presented to [facility] on 11/01/2023 s/p ground level fall. [...] vertebra, unspecified thoracic vertebral level, initial encounter ([facility]) Disposition: ADMIT to Trauma By signing my name below, I, Marydaniel Gaye, attest that this documentation has been prepared underthe direction and in the presence of Dr. Rambo Alvarado. Signed: Torres Mcdonnell. Date: 11/02/2023. Time:8:22 PM. Rambo Alvarado MD Division of Emergency Medicine [facility] 11/02/2023 8:22 PM * Shannan Hooper, JOLLY [...] not screen for Propoxyphene, Meprobamate, Carisoprodol, Trazodone, givt-rnd-hbyindd medications and/or volatiles (Acetone, Isopropanol, Methanol or Ethylene Glycol). Ethanol, Salicylate, Acetaminophen, Tricyclic Antidepressants and several therapeutic drugsmay be individually assayed in serum or plasma specimen. Toxicology testing by the [facility] is an aid to medical diagnosisand treatment of patients. No documented chain of custody was maintained. Results are intended to be used for clinical purposes only. URINALYSIS W/MICROSCOPIC NO CULTURE - Abnormal; Notable for the following components: Specific [place] UA 1.044 (*) Blood UA 3+ (*) Bacteria UA 1+ (*) All other components within normal limits Narrative: CBC W/O DIFFERENTIAL - Abnormal; Notable for the following components: RBC Count 3.31 (*) Hematocrit 34.4 (*) MCV 103.9 (*) MCH 37.2 (*) RDW-CV 16.2 (*) All other components within normal limits ALCOHOL ETHYL BLOOD - Normal Narrative: Ethanol Interp <10: None Detected. Depression of [place]INGLE WEAVER: >100 mg/dl Potentially Critical: >250 mg/dl Potentially [...] DATE/TIME OF EXAM: 11/01/2023 7:48 PM, LOCATION: [facility] HISTORY: Trauma ADDITIONAL CLINICAL INFORMATION: Ordering Provider [...] dependent subsegmental atelectasis of the lung apices. Bawu-dc-llkavcdb calcific atherosclerosis of the carotid bulbs and moderate calcific atherosclerosis of the common carotid arteries. Multiple calcified mediastinal lymph nodes that is suggestive of prior healed granulomatous disease. THORACIC SPINE: ALIGNMENT: Mild kyphosis centered at the T5 level and zeky-yw-kfsuglhf levoconvex curvature of the upper thoracic spine without significant listhesis. No traumatic malalignment. BONES: Age-indeterminate compression fracture deformity of the T5 vertebral body superior endplate associated with a thin sclerotic line and with approximately 30% height loss anteriorly, which may represent an heyzt-ew-qoclvkfe microtrabecular fracture. Age-indeterminate compression fracture deformity of the T6 vertebral body superior endplate associated with a thin sclerotic line and with approximately 30% height loss centrally, which may represent an xdvdp-rt-kntffnty microtrabecular fracture. Chronic-appearing ogpdeoj-fe-nuqi height loss remaining thoracic vertebral bodies. No retropulsion at any level. Osseous structures are markedly demineralized. DISCS: Multilevel mild disc space narrowing. DEGENERATIVE CHANGES: Overall zdya-mx-jonrnkxc multilevel degenerative changes. SPINAL CANAL/NEUROFORAMEN: No significant spinal canal stenosis. High-grade neuroforaminal narrowing at the right T2-T3 through T5-T6 levels and left T10-T11 level in addition to amiy-tl-nabsgmyu neuroforaminal narrowing elsewhere. SOFT TISSUES: Visualized soft tissues are normal. OTHER: Dependent atelectasis of the lungs bilaterally. Mildly tortuous thoracic aorta with olhuwdjj-re-oupgsp calcific atherosclerosis. Multiple calcified mediastinal lymph nodes [...] phenomena at all levels. DEGENERATIVE CHANGES: Overall mqjiggaf-jy-twsmoc multilevel degenerative change, characterized by varying degrees of posterior disc bulges, ligamentum flavum hypertrophy, and facet arthropathy. SPINAL CANAL/NEUROFORAMEN: Multilevel spinal canal stenoses that is notably mild at the T12-L1 and L2-L3 levels, gkqvmobk-re-yjxvpn at the L3-L4 and L4-L5 levels, and [...] endplates at these levels, which may represent rjjku-qo-rcvsyajn microtrabecular fractures. No evidence of retropulsion. Recommend [...] DATE/TIME OF EXAM: 11/01/2023 7:48 PM, LOCATION: [facility] HISTORY: Trauma ADDITIONAL CLINICAL INFORMATION: Ordering Provider [...] dependent subsegmental atelectasis of the lung apices. Gfzw-rs-cwdepkpd calcific atherosclerosis of the carotid bulbs and moderate calcific atherosclerosis of the common carotid arteries. Multiple calcified mediastinal lymph nodes that is suggestive of prior healed granulomatous disease. THORACIC SPINE: ALIGNMENT: Mild kyphosis centered at the T5 level and izzn-tq-ifodqxqf levoconvex curvature of the upper thoracic spine without significant listhesis. No traumatic malalignment. BONES: Age-indeterminate compression fracture deformity of the T5 vertebral body superior endplate associated with a thin sclerotic line and with approximately 30% height loss anteriorly, which may represent an pkrxg-hi-nogygkiu microtrabecular fracture. Age-indeterminate compression fracture deformity of the T6 vertebral body superior endplate associated with a thin sclerotic line and with approximately 30% height loss centrally, which may represent an wtmcp-zm-ucbmofge microtrabecular fracture. Chronic-appearing vewcpsq-re-rjde height loss remaining thoracic vertebral bodies. No retropulsion at any level. Osseous structures are markedly demineralized. DISCS: Multilevel mild disc space narrowing. DEGENERATIVE CHANGES: Overall elio-cz-ppuuspkd multilevel degenerative changes. SPINAL CANAL/NEUROFORAMEN: No significant spinal canal stenosis. High-grade neuroforaminal narrowing at the right T2-T3 through T5-T6 levels and left T10-T11 level in addition to nvtn-js-caisaemz neuroforaminal narrowing elsewhere. SOFT TISSUES: Visualized soft tissues are normal. OTHER: Dependent atelectasis of the lungs bilaterally. Mildly tortuous thoracic aorta with fuutovso-ft-ovkcxk calcific atherosclerosis. Multiple calcified mediastinal lymph nodes [...] phenomena at all levels. DEGENERATIVE CHANGES: Overall cegsgoil-jx-ihohve multilevel degenerative change, characterized by varying degrees of posterior disc bulges, ligamentum flavum hypertrophy, and facet arthropathy. SPINAL CANAL/NEUROFORAMEN: Multilevel spinal canal stenoses that is notably mild at the T12-L1 and L2-L3 levels, noqxlfih-hm-rhvctt at the L3-L4 and L4-L5 levels, and [...] endplates at these levels, which may represent fvgpt-lk-vrpxbsrt microtrabecular fractures. No evidence of retropulsion. Recommend [...] DATE/TIME OF EXAM: 11/01/2023 7:48 PM, LOCATION [facility] INDICATION: Trauma ADDITIONAL CLINICAL INFORMATION: Ordering Provider [...] pelvis. > Dictated by Paxton Whitley DO (resident care supervisor). I, Milad Mcnulty MD have personally reviewed [...] DATE/TIME OF EXAM: 11/01/2023 7:48 PM, LOCATION: [facility] HISTORY: Trauma ADDITIONAL CLINICAL INFORMATION: Ordering Provider [...] dependent subsegmental atelectasis of the lung apices. Zdlq-kl-fduxueaz calcific atherosclerosis of the carotid bulbs and moderate calcific atherosclerosis of the common carotid arteries. Multiple calcified mediastinal lymph nodes that is suggestive of prior healed granulomatous disease. THORACIC SPINE: ALIGNMENT: Mild kyphosis centered at the T5 level and ddcm-cy-ibwqmygj levoconvex curvature of the upper thoracic spine without significant listhesis. No traumatic malalignment. BONES: Age-indeterminate compression fracture deformity of the T5 vertebral body superior endplate associated with a thin sclerotic line and with approximately 30% height loss anteriorly, which may represent an ufidk-xo-kdandkoa microtrabecular fracture. Age-indeterminate compression fracture deformity of the T6 vertebral body superior endplate associated with a thin sclerotic line and with approximately 30% height loss centrally, which may represent an avzzx-ln-fiyiwvks microtrabecular fracture. Chronic-appearing nldkgvt-kl-ndad height loss remaining thoracic vertebral bodies. No retropulsion at any level. Osseous structures are markedly demineralized. DISCS: Multilevel mild disc space narrowing. DEGENERATIVE CHANGES: Overall rbxj-bq-oufuppwc multilevel degenerative changes. SPINAL CANAL/NEUROFORAMEN: No significant spinal canal stenosis. High-grade neuroforaminal narrowing at the right T2-T3 through T5-T6 levels and left T10-T11 level in addition to vras-fx-fhzmwqlk neuroforaminal narrowing elsewhere. SOFT TISSUES: Visualized soft tissues are normal. OTHER: Dependent atelectasis of the lungs bilaterally. Mildly tortuous thoracic aorta with wuxcekbh-ix-gubnpo calcific atherosclerosis. Multiple calcified mediastinal lymph nodes [...] phenomena at all levels. DEGENERATIVE CHANGES: Overall stwbtlxr-km-nqchiu multilevel degenerative change, characterized by varying degrees of posterior disc bulges, ligamentum flavum hypertrophy, and facet arthropathy. SPINAL CANAL/NEUROFORAMEN: Multilevel spinal canal stenoses that is notably mild at the T12-L1 and L2-L3 levels, vwzokvla-zy-fupfbe at the L3-L4 and L4-L5 levels, and [...] endplates at these levels, which may represent jsqfl-bf-pmdhaotl microtrabecular fractures. No evidence of retropulsion. Recommend [...] DATE/TIME OF EXAM: 11/01/2023 7:48 PM, LOCATION: [facility] HISTORY: Trauma ADDITIONAL CLINICAL INFORMATION: Ordering Provider [...] dependent subsegmental atelectasis of the lung apices. Dznp-rx-wlldtmej calcific atherosclerosis of the carotid bulbs and moderate calcific atherosclerosis of the common carotid arteries. Multiple calcified mediastinal lymph nodes that is suggestive of prior healed granulomatous disease. THORACIC SPINE: ALIGNMENT: Mild kyphosis centered at the T5 level and eoxh-gt-nczztqpx levoconvex curvature of the upper thoracic spine without significant listhesis. No traumatic malalignment. BONES: Age-indeterminate compression fracture deformity of the T5 vertebral body superior endplate associated with a thin sclerotic line and with approximately 30% height loss anteriorly, which may represent an btbsp-fh-rhissuiw microtrabecular fracture. Age-indeterminate compression fracture deformity of the T6 vertebral body superior endplate associated with a thin sclerotic line and with approximately 30% height loss centrally, which may represent an vbvmu-wb-mwkqynvg microtrabecular fracture. Chronic-appearing mrhekjo-re-gfgy height loss remaining thoracic vertebral bodies. No retropulsion at any level. Osseous structures are markedly demineralized. DISCS: Multilevel mild disc space narrowing. DEGENERATIVE CHANGES: Overall zdms-am-ljhppdve multilevel degenerative changes. SPINAL CANAL/NEUROFORAMEN: No significant spinal canal stenosis. High-grade neuroforaminal narrowing at the right T2-T3 through T5-T6 levels and left T10-T11 level in addition to frco-fh-umzxzrvj neuroforaminal narrowing elsewhere. SOFT TISSUES: Visualized soft tissues are normal. OTHER: Dependent atelectasis of the lungs bilaterally. Mildly tortuous thoracic aorta with fcaifrau-rh-xfysni calcific atherosclerosis. Multiple calcified mediastinal lymph nodes [...] phenomena at all levels. DEGENERATIVE CHANGES: Overall aymbivvu-vj-baregu multilevel degenerative change, characterized by varying degrees of posterior disc bulges, ligamentum flavum hypertrophy, and facet arthropathy. SPINAL CANAL/NEUROFORAMEN: Multilevel spinal canal stenoses that is notably mild at the T12-L1 and L2-L3 levels, bxwoyzgl-tb-qqmnvk at the L3-L4 and L4-L5 levels, and [...] endplates at these levels, which may represent cdqro-xf-dgsktymq microtrabecular fractures. No evidence of retropulsion. Recommend [...] DATE/TIME OF EXAM: 11/01/2023 7:48 PM, LOCATION: [facility] HISTORY: Trauma ADDITIONAL CLINICAL INFORMATION: Ordering Provider [...] dependent subsegmental atelectasis of the lung apices. Vhhk-sf-lvjeodal calcific atherosclerosis of the carotid bulbs and moderate calcific atherosclerosis of the common carotid arteries. Multiple calcified mediastinal lymph nodes that is suggestive of prior healed granulomatous disease. THORACIC SPINE: ALIGNMENT: Mild kyphosis centered at the T5 level and lshq-jg-vomfjtpu levoconvex curvature of the upper thoracic spine without significant listhesis. No traumatic malalignment. BONES: Age-indeterminate compression fracture deformity of the T5 vertebral body superior endplate associated with a thin sclerotic line and with approximately 30% height loss anteriorly, which may represent an chtku-gr-kswlxara microtrabecular fracture. Age-indeterminate compression fracture deformity of the T6 vertebral body superior endplate associated with a thin sclerotic line and with approximately 30% height loss centrally, which may represent an hvkjo-qi-ltwzfkle microtrabecular fracture. Chronic-appearing hnopkik-na-pqtt height loss remaining thoracic vertebral bodies. No retropulsion at any level. Osseous structures are markedly demineralized. DISCS: Multilevel mild disc space narrowing. DEGENERATIVE CHANGES: Overall eoqc-zw-bzbcjodg multilevel degenerative changes. SPINAL CANAL/NEUROFORAMEN: No significant spinal canal stenosis. High-grade neuroforaminal narrowing at the right T2-T3 through T5-T6 levels and left T10-T11 level in addition to xryk-el-iounvlgy neuroforaminal narrowing elsewhere. SOFT TISSUES: Visualized soft tissues are normal. OTHER: Dependent atelectasis of the lungs bilaterally. Mildly tortuous thoracic aorta with tuwwphig-ac-kyricb calcific atherosclerosis. Multiple calcified mediastinal lymph nodes [...] phenomena at all levels. DEGENERATIVE CHANGES: Overall hxpeqmcu-hk-jhltei multilevel degenerative change, characterized by varying degrees of posterior disc bulges, ligamentum flavum hypertrophy, and facet arthropathy. SPINAL CANAL/NEUROFORAMEN: Multilevel spinal canal stenoses that is notably mild at the T12-L1 and L2-L3 levels, wnpgytwd-rb-lirqyt at the L3-L4 and L4-L5 levels, and [...] endplates at these levels, which may represent eiopy-ca-liwzlkef microtrabecular fractures. No evidence of retropulsion. Recommend [...] DATE/TIME OF EXAM: 11/01/2023 7:10 PM, LOCATION [facility] INDICATION: T14.90XA: Trauma ADDITIONAL CLINICAL INFORMATION: Ordering [...] Report dictated by Sarah Keith Dr, MD (resident care supervisor). I, Loreto Bone MD have personally reviewed and interpreted this examination/study. > Interpreting Provider: Loreto Bone MD on 11/01/2023 9:17 PM XR CHEST 1VW PORTABLE Final Result PROCEDURE: XR CHEST 1VW PORTABLE, DATE/TIME OF EXAM: 11/01/2023 7:10 PM, LOCATION [facility] INDICATION: Trauma ADDITIONAL CLINICAL INFORMATION: COMPARISON: None. [...] Report dictated by Sarah Keith Dr, MD (resident care supervisor). I, Loreto Bone MD have personally reviewed [...] vertebra, unspecified thoracic vertebral level, initial encounter ([facility]) Disposition: Admit to [facility] pending bed assignment. [...] 2:01 AM CDT Pt : Harlan Fierro [phone] * Gabriel Hill MD - 11/01/2023 10:20 [...] not screen for Propoxyphene, Meprobamate, Carisoprodol, Trazodone, ckkf-jja-jnjwbuk medications and/or volatiles (Acetone, Isopropanol, Methanol or Ethylene Glycol). Ethanol, Salicylate, Acetaminophen, Tricyclic Antidepressants and several therapeutic drugsmay be individually assayed in serum or plasma specimen. Toxicology testing by the [facility] is an aid to medical diagnosisand treatment of patients. No documented chain of custody was maintained. Results are intended to be used for clinical purposes only. URINALYSIS W/MICROSCOPIC NO CULTURE - Abnormal; Notable for the following components: Specific [place] UA 1.044 (*) Blood UA 3+ (*) Bacteria UA 1+ (*) All other components within normal limits Narrative: ALCOHOL ETHYL BLOOD - Normal Narrative: Ethanol Interp <10: None Detected. Depression of [place]ING[place] WEAVER: >100 mg/dl Potentially Critical: >250 mg/dl Potentially [...] DATE/TIME OF EXAM: 11/01/2023 7:48 PM, LOCATION: [facility] HISTORY: Trauma ADDITIONAL CLINICAL INFORMATION: Ordering Provider [...] dependent subsegmental atelectasis of the lung apices. Jvno-js-zgtiyrbg calcific atherosclerosis of the carotid bulbs and moderate calcific atherosclerosis of the common carotid arteries. Multiple calcified mediastinal lymph nodes that is suggestive of prior healed granulomatous disease. THORACIC SPINE: ALIGNMENT: Mild kyphosis centered at the T5 level and zkmr-tj-wqxllnfb levoconvex curvature of the upper thoracic spine without significant listhesis. No traumatic malalignment. BONES: Age-indeterminate compression fracture deformity of the T5 vertebral body superior endplate associated with a thin sclerotic line and with approximately 30% height loss anteriorly, which may represent an jrscr-pu-vxjokpqi microtrabecular fracture. Age-indeterminate compression fracture deformity of the T6 vertebral body superior endplate associated with a thin sclerotic line and with approximately 30% height loss centrally, which may represent an zvmbd-zq-tsltmhvm microtrabecular fracture. Chronic-appearing mtrrnrx-cn-gtob height loss remaining thoracic vertebral bodies. No retropulsion at any level. Osseous structures are markedly demineralized. DISCS: Multilevel mild disc space narrowing. DEGENERATIVE CHANGES: Overall knyt-uu-jqqlflky multilevel degenerative changes. SPINAL CANAL/NEUROFORAMEN: No significant spinal canal stenosis. High-grade neuroforaminal narrowing at the right T2-T3 through T5-T6 levels and left T10-T11 level in addition to yffy-qe-pzkgwfyp neuroforaminal narrowing elsewhere. SOFT TISSUES: Visualized soft tissues are normal. OTHER: Dependent atelectasis of the lungs bilaterally. Mildly tortuous thoracic aorta with ysetcqqi-rj-pwwarc calcific atherosclerosis. Multiple calcified mediastinal lymph nodes [...] phenomena at all levels. DEGENERATIVE CHANGES: Overall mpbupaih-qa-krbrvp multilevel degenerative change, characterized by varying degrees of posterior disc bulges, ligamentum flavum hypertrophy, and facet arthropathy. SPINAL CANAL/NEUROFORAMEN: Multilevel spinal canal stenoses that is notably mild at the T12-L1 and L2-L3 levels, rqiyotuq-tx-gkrbhz at the L3-L4 and L4-L5 levels, and [...] endplates at these levels, which may represent gctjs-xe-vrbgebwm microtrabecular fractures. No evidence of retropulsion. Recommend [...] DATE/TIME OF EXAM: 11/01/2023 7:48 PM, LOCATION: [facility] HISTORY: Trauma ADDITIONAL CLINICAL INFORMATION: Ordering Provider [...] dependent subsegmental atelectasis of the lung apices. Xbmt-sv-spweiwkm calcific atherosclerosis of the carotid bulbs and moderate calcific atherosclerosis of the common carotid arteries. Multiple calcified mediastinal lymph nodes that is suggestive of prior healed granulomatous disease. THORACIC SPINE: ALIGNMENT: Mild kyphosis centered at the T5 level and cmbn-ak-rebeuqef levoconvex curvature of the upper thoracic spine without significant listhesis. No traumatic malalignment. BONES: Age-indeterminate compression fracture deformity of the T5 vertebral body superior endplate associated with a thin sclerotic line and with approximately 30% height loss anteriorly, which may represent an mhvjd-ew-bhlsikwe microtrabecular fracture. Age-indeterminate compression fracture deformity of the T6 vertebral body superior endplate associated with a thin sclerotic line and with approximately 30% height loss centrally, which may represent an ptfvt-rd-jwnzmuni microtrabecular fracture. Chronic-appearing teeqcnd-zs-iczy height loss remaining thoracic vertebral bodies. No retropulsion at any level. Osseous structures are markedly demineralized. DISCS: Multilevel mild disc space narrowing. DEGENERATIVE CHANGES: Overall ronm-es-krqlorzp multilevel degenerative changes. SPINAL CANAL/NEUROFORAMEN: No significant spinal canal stenosis. High-grade neuroforaminal narrowing at the right T2-T3 through T5-T6 levels and left T10-T11 level in addition to pagi-vg-zuilftbt neuroforaminal narrowing elsewhere. SOFT TISSUES: Visualized soft tissues are normal. OTHER: Dependent atelectasis of the lungs bilaterally. Mildly tortuous thoracic aorta with ryuddwvs-sp-uyejlr calcific atherosclerosis. Multiple calcified mediastinal lymph nodes [...] phenomena at all levels. DEGENERATIVE CHANGES: Overall olgsgwnw-mb-wzmtgg multilevel degenerative change, characterized by varying degrees of posterior disc bulges, ligamentum flavum hypertrophy, and facet arthropathy. SPINAL CANAL/NEUROFORAMEN: Multilevel spinal canal stenoses that is notably mild at the T12-L1 and L2-L3 levels, opzqdirt-jp-qsaawt at the L3-L4 and L4-L5 levels, and [...] endplates at these levels, which may represent djsdp-dh-uovxntqj microtrabecular fractures. No evidence of retropulsion. Recommend [...] DATE/TIME OF EXAM: 11/01/2023 7:48 PM, LOCATION [facility] INDICATION: Trauma ADDITIONAL CLINICAL INFORMATION: Ordering Provider [...] pelvis. > Dictated by Paxton Whitley DO (resident care supervisor). I, Milad Mcnulty MD have personally reviewed [...] DATE/TIME OF EXAM: 11/01/2023 7:48 PM, LOCATION: [facility] HISTORY: Trauma ADDITIONAL CLINICAL INFORMATION: Ordering Provider [...] dependent subsegmental atelectasis of the lung apices. Uukr-oq-noxqgbhr calcific atherosclerosis of the carotid bulbs and moderate calcific atherosclerosis of the common carotid arteries. Multiple calcified mediastinal lymph nodes that is suggestive of prior healed granulomatous disease. THORACIC SPINE: ALIGNMENT: Mild kyphosis centered at the T5 level and zlrm-hj-otkkeguh levoconvex curvature of the upper thoracic spine without significant listhesis. No traumatic malalignment. BONES: Age-indeterminate compression fracture deformity of the T5 vertebral body superior endplate associated with a thin sclerotic line and with approximately 30% height loss anteriorly, which may represent an gtxml-qe-snswlpga microtrabecular fracture. Age-indeterminate compression fracture deformity of the T6 vertebral body superior endplate associated with a thin sclerotic line and with approximately 30% height loss centrally, which may represent an lfeji-jt-iiaqaibq microtrabecular fracture. Chronic-appearing ysxxmra-kx-souy height loss remaining thoracic vertebral bodies. No retropulsion at any level. Osseous structures are markedly demineralized. DISCS: Multilevel mild disc space narrowing. DEGENERATIVE CHANGES: Overall ouze-ym-uiksngph multilevel degenerative changes. SPINAL CANAL/NEUROFORAMEN: No significant spinal canal stenosis. High-grade neuroforaminal narrowing at the right T2-T3 through T5-T6 levels and left T10-T11 level in addition to mbpv-up-lclvwaat neuroforaminal narrowing elsewhere. SOFT TISSUES: Visualized soft tissues are normal. OTHER: Dependent atelectasis of the lungs bilaterally. Mildly tortuous thoracic aorta with vmebnyjm-xn-qakfkk calcific atherosclerosis. Multiple calcified mediastinal lymph nodes [...] phenomena at all levels. DEGENERATIVE CHANGES: Overall wnmvgprr-ps-pinbqy multilevel degenerative change, characterized by varying degrees of posterior disc bulges, ligamentum flavum hypertrophy, and facet arthropathy. SPINAL CANAL/NEUROFORAMEN: Multilevel spinal canal stenoses that is notably mild at the T12-L1 and L2-L3 levels, izpuhfjq-el-tquwmq at the L3-L4 and L4-L5 levels, and [...] endplates at these levels, which may represent oyvrr-ol-lnmjzzls microtrabecular fractures. No evidence of retropulsion. Recommend [...] DATE/TIME OF EXAM: 11/01/2023 7:48 PM, LOCATION: [facility] HISTORY: Trauma ADDITIONAL CLINICAL INFORMATION: Ordering Provider [...] dependent subsegmental atelectasis of the lung apices. Isao-ov-wwobhbru calcific atherosclerosis of the carotid bulbs and moderate calcific atherosclerosis of the common carotid arteries. Multiple calcified mediastinal lymph nodes that is suggestive of prior healed granulomatous disease. THORACIC SPINE: ALIGNMENT: Mild kyphosis centered at the T5 level and jtvx-uh-dorezqev levoconvex curvature of the upper thoracic spine without significant listhesis. No traumatic malalignment. BONES: Age-indeterminate compression fracture deformity of the T5 vertebral body superior endplate associated with a thin sclerotic line and with approximately 30% height loss anteriorly, which may represent an rtwro-jd-zwteprin microtrabecular fracture. Age-indeterminate compression fracture deformity of the T6 vertebral body superior endplate associated with a thin sclerotic line and with approximately 30% height loss centrally, which may represent an pwjux-gt-mmnyfhck microtrabecular fracture. Chronic-appearing guvvnxj-ik-ytsz height loss remaining thoracic vertebral bodies. No retropulsion at any level. Osseous structures are markedly demineralized. DISCS: Multilevel mild disc space narrowing. DEGENERATIVE CHANGES: Overall hjiw-ku-fqaqhnfy multilevel degenerative changes. SPINAL CANAL/NEUROFORAMEN: No significant spinal canal stenosis. High-grade neuroforaminal narrowing at the right T2-T3 through T5-T6 levels and left T10-T11 level in addition to lbek-zu-nctnvoli neuroforaminal narrowing elsewhere. SOFT TISSUES: Visualized soft tissues are normal. OTHER: Dependent atelectasis of the lungs bilaterally. Mildly tortuous thoracic aorta with illefdlc-tt-exldsa calcific atherosclerosis. Multiple calcified mediastinal lymph nodes [...] phenomena at all levels. DEGENERATIVE CHANGES: Overall ryghgmin-yn-woxjog multilevel degenerative change, characterized by varying degrees of posterior disc bulges, ligamentum flavum hypertrophy, and facet arthropathy. SPINAL CANAL/NEUROFORAMEN: Multilevel spinal canal stenoses that is notably mild at the T12-L1 and L2-L3 levels, zaxurrys-nv-fgangj at the L3-L4 and L4-L5 levels, and [...] endplates at these levels, which may represent wsjcd-rh-soyhpwez microtrabecular fractures. No evidence of retropulsion. Recommend [...] DATE/TIME OF EXAM: 11/01/2023 7:48 PM, LOCATION: [facility] HISTORY: Trauma ADDITIONAL CLINICAL INFORMATION: Ordering Provider [...] dependent subsegmental atelectasis of the lung apices. Grdy-nc-rgnihqoh calcific atherosclerosis of the carotid bulbs and moderate calcific atherosclerosis of the common carotid arteries. Multiple calcified mediastinal lymph nodes that is suggestive of prior healed granulomatous disease. THORACIC SPINE: ALIGNMENT: Mild kyphosis centered at the T5 level and wbzl-wq-ezhsicpg levoconvex curvature of the upper thoracic spine without significant listhesis. No traumatic malalignment. BONES: Age-indeterminate compression fracture deformity of the T5 vertebral body superior endplate associated with a thin sclerotic line and with approximately 30% height loss anteriorly, which may represent an ucspp-gu-mdihrkyg microtrabecular fracture. Age-indeterminate compression fracture deformity of the T6 vertebral body superior endplate associated with a thin sclerotic line and with approximately 30% height loss centrally, which may represent an iabih-ch-nxmwrndk microtrabecular fracture. Chronic-appearing dhaibxt-ay-lbzw height loss remaining thoracic vertebral bodies. No retropulsion at any level. Osseous structures are markedly demineralized. DISCS: Multilevel mild disc space narrowing. DEGENERATIVE CHANGES: Overall qpwo-db-gnzoqphy multilevel degenerative changes. SPINAL CANAL/NEUROFORAMEN: No significant spinal canal stenosis. High-grade neuroforaminal narrowing at the right T2-T3 through T5-T6 levels and left T10-T11 level in addition to rdyk-pk-dohfezbo neuroforaminal narrowing elsewhere. SOFT TISSUES: Visualized soft tissues are normal. OTHER: Dependent atelectasis of the lungs bilaterally. Mildly tortuous thoracic aorta with tmoyisin-ul-csxmkt calcific atherosclerosis. Multiple calcified mediastinal lymph nodes [...] phenomena at all levels. DEGENERATIVE CHANGES: Overall drigunmp-ph-miggks multilevel degenerative change, characterized by varying degrees of posterior disc bulges, ligamentum flavum hypertrophy, and facet arthropathy. SPINAL CANAL/NEUROFORAMEN: Multilevel spinal canal stenoses that is notably mild at the T12-L1 and L2-L3 levels, lslitfrb-ab-alnvbd at the L3-L4 and L4-L5 levels, and [...] endplates at these levels, which may represent pevwc-cb-svyqzwgp microtrabecular fractures. No evidence of retropulsion. Recommend [...] DATE/TIME OF EXAM: 11/01/2023 7:10 PM, LOCATION [facility] INDICATION: T14.90XA: Trauma ADDITIONAL CLINICAL INFORMATION: Ordering [...] Report dictated by Sarah Keith Dr, MD (resident care supervisor). I, Loreto Bone MD have personally reviewed and interpreted this examination/study. > Interpreting Provider: Loreto Bone MD on 11/01/2023 9:17 PM XR CHEST 1VW PORTABLE Final Result PROCEDURE: XR CHEST 1VW PORTABLE, DATE/TIME OF EXAM: 11/01/2023 7:10 PM, LOCATION [facility] INDICATION: Trauma ADDITIONAL CLINICAL INFORMATION: COMPARISON: None. [...] Report dictated by Sarah Keith Dr, MD (resident care supervisor). I, Loreto Bone MD have personally reviewed [...] vertebra, unspecified thoracic vertebral level, initial encounter ([facility]) Disposition: PATRICIA To Dr. Brito By signing my name below, I, Ketanchitra Hoff, attest that this documentation has been prepared underthe direction and in the presence of Dr. Hill. Signed: Torres Nunez. Gabriel Hill MD Division of Emergency Medicine [facility] 11/02/2023 6:08 AM * January Rodriguez RN - 11/01/2023 9:42 PM CDT Pt placed on purewick at this time. * Jamil Fuentes RN - 11/01/2023 8:40 PM CDT Bed: [facility] Expected date: Expected time: Means of arrival: [...] DATE/TIME OF EXAM: 11/01/2023 7:48 PM, LOCATION: [facility] HISTORY: Trauma ADDITIONAL CLINICAL INFORMATION: Ordering Provider [...] dependent subsegmental atelectasis of the lung apices. Iqvp-yi-mfgxtefo calcific atherosclerosis of the carotid bulbs and moderate calcific atherosclerosis of the common carotid arteries. Multiple calcified mediastinal lymph nodes that is suggestive of prior healed granulomatous disease. THORACIC SPINE: ALIGNMENT: Mild kyphosis centered at the T5 level and znfb-pt-zaajqprd levoconvex curvature of the upper thoracic spine without significant listhesis. No traumatic malalignment. BONES: Age-indeterminate compression fracture deformity of the T5 vertebral body superior endplate associated with a thin sclerotic line and with approximately 30% height loss anteriorly, which may represent an yewep-qg-esrzpncx microtrabecular fracture. Age-indeterminate compression fracture deformity of the T6 vertebral body superior endplate associated with a thin sclerotic line and with approximately 30% height loss centrally, which may represent an vgpwt-ix-umzqfrxp microtrabecular fracture. Chronic-appearing lweiwfw-js-cyuo height loss remaining thoracic vertebral bodies. No retropulsion at any level. Osseous structures are markedly demineralized. DISCS: Multilevel mild disc space narrowing. DEGENERATIVE CHANGES: Overall cfrq-et-zejjymff multilevel degenerative changes. SPINAL CANAL/NEUROFORAMEN: No significant spinal canal stenosis. High-grade neuroforaminal narrowing at the right T2-T3 through T5-T6 levels and left T10-T11 level in addition to afej-ac-eovdtuch neuroforaminal narrowing elsewhere. SOFT TISSUES: Visualized soft tissues are normal. OTHER: Dependent atelectasis of the lungs bilaterally. Mildly tortuous thoracic aorta with vmfsnftl-ni-vlhcuk calcific atherosclerosis. Multiple calcified mediastinal lymph nodes [...] phenomena at all levels. DEGENERATIVE CHANGES: Overall pbfnsjlc-cl-epdoxu multilevel degenerative change, characterized by varying degrees of posterior disc bulges, ligamentum flavum hypertrophy, and facet arthropathy. SPINAL CANAL/NEUROFORAMEN: Multilevel spinal canal stenoses that is notably mild at the T12-L1 and L2-L3 levels, xnycmgfm-bv-uatyeh at the L3-L4 and L4-L5 levels, and [...] endplates at these levels, which may represent aqoqj-vv-hfyhsjuz microtrabecular fractures. No evidence of retropulsion. Recommend [...] DATE/TIME OF EXAM: 11/01/2023 7:48 PM, LOCATION: [facility] HISTORY: Trauma ADDITIONAL CLINICAL INFORMATION: Ordering Provider [...] dependent subsegmental atelectasis of the lung apices. Lgpp-bq-eoruwonc calcific atherosclerosis of the carotid bulbs and moderate calcific atherosclerosis of the common carotid arteries. Multiple calcified mediastinal lymph nodes that is suggestive of prior healed granulomatous disease. THORACIC SPINE: ALIGNMENT: Mild kyphosis centered at the T5 level and pxmj-hv-vprvjzsh levoconvex curvature of the upper thoracic spine without significant listhesis. No traumatic malalignment. BONES: Age-indeterminate compression fracture deformity of the T5 vertebral body superior endplate associated with a thin sclerotic line and with approximately 30% height loss anteriorly, which may represent an vskzg-hm-gjlaennc microtrabecular fracture. Age-indeterminate compression fracture deformity of the T6 vertebral body superior endplate associated with a thin sclerotic line and with approximately 30% height loss centrally, which may represent an eugsb-ru-mxzqducg microtrabecular fracture. Chronic-appearing rdmbogb-us-kbkh height loss remaining thoracic vertebral bodies. No retropulsion at any level. Osseous structures are markedly demineralized. DISCS: Multilevel mild disc space narrowing. DEGENERATIVE CHANGES: Overall wqco-ig-bpsqjush multilevel degenerative changes. SPINAL CANAL/NEUROFORAMEN: No significant spinal canal stenosis. High-grade neuroforaminal narrowing at the right T2-T3 through T5-T6 levels and left T10-T11 level in addition to aoqb-hj-fytavqcn neuroforaminal narrowing elsewhere. SOFT TISSUES: Visualized soft tissues are normal. OTHER: Dependent atelectasis of the lungs bilaterally. Mildly tortuous thoracic aorta with vbisjqvz-ye-kamlgv calcific atherosclerosis. Multiple calcified mediastinal lymph nodes [...] phenomena at all levels. DEGENERATIVE CHANGES: Overall jmczbsgf-md-dmckar multilevel degenerative change, characterized by varying degrees of posterior disc bulges, ligamentum flavum hypertrophy, and facet arthropathy. SPINAL CANAL/NEUROFORAMEN: Multilevel spinal canal stenoses that is notably mild at the T12-L1 and L2-L3 levels, bonvpego-cp-hronsh at the L3-L4 and L4-L5 levels, and [...] endplates at these levels, which may represent qbvsc-bq-colhochp microtrabecular fractures. No evidence of retropulsion. Recommend [...] DATE/TIME OF EXAM: 11/01/2023 7:48 PM, LOCATION [facility] INDICATION: Trauma ADDITIONAL CLINICAL INFORMATION: Ordering Provider [...] pelvis. > Dictated by Paxton Whitley DO (resident care supervisor). I, Milad Mcnulty MD have personally reviewed [...] DATE/TIME OF EXAM: 11/01/2023 7:48 PM, LOCATION: [facility] HISTORY: Trauma ADDITIONAL CLINICAL INFORMATION: Ordering Provider [...] dependent subsegmental atelectasis of the lung apices. Cjpn-kr-fcuuqmyh calcific atherosclerosis of the carotid bulbs and moderate calcific atherosclerosis of the common carotid arteries. Multiple calcified mediastinal lymph nodes that is suggestive of prior healed granulomatous disease. THORACIC SPINE: ALIGNMENT: Mild kyphosis centered at the T5 level and dhah-vn-deekymqz levoconvex curvature of the upper thoracic spine without significant listhesis. No traumatic malalignment. BONES: Age-indeterminate compression fracture deformity of the T5 vertebral body superior endplate associated with a thin sclerotic line and with approximately 30% height loss anteriorly, which may represent an ggzgn-vg-bmvwqubz microtrabecular fracture. Age-indeterminate compression fracture deformity of the T6 vertebral body superior endplate associated with a thin sclerotic line and with approximately 30% height loss centrally, which may represent an pikps-sx-gjgsfvvf microtrabecular fracture. Chronic-appearing tstsodb-kf-sgvn height loss remaining thoracic vertebral bodies. No retropulsion at any level. Osseous structures are markedly demineralized. DISCS: Multilevel mild disc space narrowing. DEGENERATIVE CHANGES: Overall tmdw-oa-lrlsdgnb multilevel degenerative changes. SPINAL CANAL/NEUROFORAMEN: No significant spinal canal stenosis. High-grade neuroforaminal narrowing at the right T2-T3 through T5-T6 levels and left T10-T11 level in addition to pgck-er-kkocqwut neuroforaminal narrowing elsewhere. SOFT TISSUES: Visualized soft tissues are normal. OTHER: Dependent atelectasis of the lungs bilaterally. Mildly tortuous thoracic aorta with pqabxdng-hx-ljjrbt calcific atherosclerosis. Multiple calcified mediastinal lymph nodes [...] phenomena at all levels. DEGENERATIVE CHANGES: Overall rzuhdkmg-pl-frrakk multilevel degenerative change, characterized by varying degrees of posterior disc bulges, ligamentum flavum hypertrophy, and facet arthropathy. SPINAL CANAL/NEUROFORAMEN: Multilevel spinal canal stenoses that is notably mild at the T12-L1 and L2-L3 levels, jpffhhpb-ae-mxlkqy at the L3-L4 and L4-L5 levels, and [...] endplates at these levels, which may represent npjqb-up-yyhckkij microtrabecular fractures. No evidence of retropulsion. Recommend [...] DATE/TIME OF EXAM: 11/01/2023 7:48 PM, LOCATION: [facility] HISTORY: Trauma ADDITIONAL CLINICAL INFORMATION: Ordering Provider [...] dependent subsegmental atelectasis of the lung apices. Nieh-qj-qwwxdtpe calcific atherosclerosis of the carotid bulbs and moderate calcific atherosclerosis of the common carotid arteries. Multiple calcified mediastinal lymph nodes that is suggestive of prior healed granulomatous disease. THORACIC SPINE: ALIGNMENT: Mild kyphosis centered at the T5 level and wgvk-pq-efidkbap levoconvex curvature of the upper thoracic spine without significant listhesis. No traumatic malalignment. BONES: Age-indeterminate compression fracture deformity of the T5 vertebral body superior endplate associated with a thin sclerotic line and with approximately 30% height loss anteriorly, which may represent an seaer-hm-hyrxszsq microtrabecular fracture. Age-indeterminate compression fracture deformity of the T6 vertebral body superior endplate associated with a thin sclerotic line and with approximately 30% height loss centrally, which may represent an grlau-ey-rbbdemfj microtrabecular fracture. Chronic-appearing nzvhdgq-ab-goko height loss remaining thoracic vertebral bodies. No retropulsion at any level. Osseous structures are markedly demineralized. DISCS: Multilevel mild disc space narrowing. DEGENERATIVE CHANGES: Overall bkyx-hm-sjtuvegz multilevel degenerative changes. SPINAL CANAL/NEUROFORAMEN: No significant spinal canal stenosis. High-grade neuroforaminal narrowing at the right T2-T3 through T5-T6 levels and left T10-T11 level in addition to npem-pf-wzveggiy neuroforaminal narrowing elsewhere. SOFT TISSUES: Visualized soft tissues are normal. OTHER: Dependent atelectasis of the lungs bilaterally. Mildly tortuous thoracic aorta with qjjficjq-jc-phrjhk calcific atherosclerosis. Multiple calcified mediastinal lymph nodes [...] phenomena at all levels. DEGENERATIVE CHANGES: Overall gatgjjem-ux-rnwixi multilevel degenerative change, characterized by varying degrees of posterior disc bulges, ligamentum flavum hypertrophy, and facet arthropathy. SPINAL CANAL/NEUROFORAMEN: Multilevel spinal canal stenoses that is notably mild at the T12-L1 and L2-L3 levels, gukcogwv-xm-vujoro at the L3-L4 and L4-L5 levels, and [...] endplates at these levels, which may represent ugcki-rq-mvauzwra microtrabecular fractures. No evidence of retropulsion. Recommend [...] DATE/TIME OF EXAM: 11/01/2023 7:48 PM, LOCATION: [facility] HISTORY: Trauma ADDITIONAL CLINICAL INFORMATION: Ordering Provider [...] dependent subsegmental atelectasis of the lung apices. Jcho-su-wkkftaue calcific atherosclerosis of the carotid bulbs and moderate calcific atherosclerosis of the common carotid arteries. Multiple calcified mediastinal lymph nodes that is suggestive of prior healed granulomatous disease. THORACIC SPINE: ALIGNMENT: Mild kyphosis centered at the T5 level and qxan-bf-ysarjwyv levoconvex curvature of the upper thoracic spine without significant listhesis. No traumatic malalignment. BONES: Age-indeterminate compression fracture deformity of the T5 vertebral body superior endplate associated with a thin sclerotic line and with approximately 30% height loss anteriorly, which may represent an idwlv-hz-ohgakbnp microtrabecular fracture. Age-indeterminate compression fracture deformity of the T6 vertebral body superior endplate associated with a thin sclerotic line and with approximately 30% height loss centrally, which may represent an eyzfh-rm-weyqytsb microtrabecular fracture. Chronic-appearing sudzlzh-xn-ferf height loss remaining thoracic vertebral bodies. No retropulsion at any level. Osseous structures are markedly demineralized. DISCS: Multilevel mild disc space narrowing. DEGENERATIVE CHANGES: Overall kutp-cr-mknehfer multilevel degenerative changes. SPINAL CANAL/NEUROFORAMEN: No significant spinal canal stenosis. High-grade neuroforaminal narrowing at the right T2-T3 through T5-T6 levels and left T10-T11 level in addition to xqhg-ts-ipofsfgh neuroforaminal narrowing elsewhere. SOFT TISSUES: Visualized soft tissues are normal. OTHER: Dependent atelectasis of the lungs bilaterally. Mildly tortuous thoracic aorta with sdynkdcz-ua-xxrllv calcific atherosclerosis. Multiple calcified mediastinal lymph nodes [...] phenomena at all levels. DEGENERATIVE CHANGES: Overall lqvkhyrp-nw-adekom multilevel degenerative change, characterized by varying degrees of posterior disc bulges, ligamentum flavum hypertrophy, and facet arthropathy. SPINAL CANAL/NEUROFORAMEN: Multilevel spinal canal stenoses that is notably mild at the T12-L1 and L2-L3 levels, ycfkwpng-hu-qhklyf at the L3-L4 and L4-L5 levels, and [...] endplates at these levels, which may represent qzbwt-uq-iznwjpxc microtrabecular fractures. No evidence of retropulsion. Recommend [...] DATE/TIME OF EXAM: 11/01/2023 7:10 PM, [facility] [facility] INDICATION: T14.90XA: Trauma ADDITIONAL CLINICAL INFORMATION: Ordering [...] Report dictated by Sarah Keith Dr, MD (resident care supervisor). Loreto Jacques MD have personally reviewed and interpreted this examination/study. > Interpreting Provider: Loreto Bone MD on 11/01/2023 9:17 PM XR CHEST 1VW PORTABLE Final Result PROCEDURE: XR CHEST 1VW PORTABLE, DATE/TIME OF EXAM: 11/01/2023 7:10 PM, LOCATION [facility] INDICATION: Trauma ADDITIONAL CLINICAL INFORMATION: COMPARISON: None. [...] Report dictated by Sarah Keith Dr, MD (resident care supervisor). Loreto Jacques MD have personally reviewed and [...] vertebra, unspecified thoracic vertebral level, initial encounter ([facility]) Mckay Church MD Emergency Medicine Department of [...] (has no administration in time range) Tdap (jecjrtm-lunsrsahnl-yrtxd pertussis) (Boostrix) (7y+) injection 0.5 mL (has [...] EKG Date:11/01/23 Time:2023 Rhythm: NSR Rate: 69bpm Hanson: Normal QTc: 443ms ST-changes: No RADHA nor [...] thoracic vertebra, unspecified thoracic vertebral level, initial encounter([facility]) ED Final Diagnosis and Discharge information 1. [...] King PA-C - 11/08/2023 9:28 AM CDT [id number] Discharge Instructions: Using a Thoracolumbar Sacral Orthosis [...] or swelling Last Reviewed Date: 2021 ?? [id number] [employer]. All rights reserved. This information is not intended as a substitute for professional medical care. Always follow your healthcare professional's instructions. * Clinical References AVS - Tonie King PA-C - 11/08/2023 9:28 AM CDT [id number] Medicine for Pain Medicines can help to [...] right away. Last Reviewed Date: 2021 ?? [id number] [employer]. All rights reserved. This information is not intended as a substitute for professional medical care. Always follow your healthcare professional's instructions. * Clinical References AVS - Tonie King PA-C - 11/08/2023 9:28 AM CDT Images from the original note were not included. [id number] Rib Fracture You broke 1 or more [...] pain and swelling. ?? You may use nugn-ilm-npqzuwm pain medicine to control pain, unless another [...] or vomiting Last Reviewed Date: 2021 ?? [id number] [employer]. All rights reserved. This information is not intended as a substitute for professional medical care. Always follow your healthcare professional's instructions. * Clinical References AVS - Tonie King PA-C - 11/08/2023 9:28 AM CDT Images from the original note were not included. [id number] Neck or Spine Fractures (Broken Neck or [...] is needed. Last Reviewed Date: 2021 ?? [id number] [employer]. All rights reserved. This information is not [...] AM CDT) Unit Description AS1 LR PRBC [facility] BLOOD BANK LAB Unit ABO O [facility] BLOOD [facility] LAB Unit Rh POS [facility] BLOOD [facility] LAB Product Number R02 [facility] B LOOD BANK LAB Unit Donor # [id number] [facility] BLOOD [facility]ANK LAB Unit Status released [facility] BLOO D BANK LAB Product Code [id number] [facility] BLO OD BANK LAB Blood Type Barcode 5100 [facility] BLOOD BANK LAB Expiration Date S BLOOD BANK LAB Unit Description AS1 LR PRBC [facility] BLOOD BANK LAB Unit ABO O [facility] BLOOD [facility]ANK LAB Unit Rh POS [facility] BLOOD B[facility] LAB Product Number R02 [facility] B LOOD [facility]ANK LAB Unit Donor # [id number] [facility] BLOOD BANK LAB Unit Status released [facility] BLOO D BANK LAB Product Code [id number] [facility] BLO OD BANK LAB Blood Type Barcode 5100 [facility] BLOOD BANK LAB Expiration Date S BLOOD BANK LAB Blood Bank BLOOD SPECIMEN / Unknown 11/01/2023 8:07 PM CDT Gabriel Hill MD LAB - BLOOD BANK ORD ERABLES [facility] BLOOD BANK LAB [address] [place] [address], [facility] [phone] * XR CHEST 1VW PORTABLE (11/04/2023 12:54 PM CDT) Anatomical Region Laterality Modality Chest Radiographic Anahy ging 11/04/2023 1:34 PM CDT Narrative 11/05/2023 11:04 AM CDT PROCEDURE: ??XR CHEST 1VW PORTABLE, DATE/TIME OF EXAM: ??11/04/2023 12:55 PM, LOCATION ??[facility] INDICATION: S22.42XA: Closed fracture of multiple ribs [...] implants. Report dictated by Darrion Linares MD (resident care supervisor). Rl Jacques MD have personally reviewed and interpreted this examination/study. > Interpreting Provider: Rl Marrero MD on 11/05/2023 11:04 AM Procedure Note Rl Marrero MD - 11/05/2023 PROCEDURE: XR CHEST 1VW PORTABLE, DATE/TIME OF EXAM: 11/04/2023 12:55PM, LOCATION [facility] INDICATION: S22.42XA: Closed fracture of multiple ribs [...] implants. Report dictated by Darrion Linares MD (resident care supervisor). Rl Jacques MD have personally reviewed and interpreted this examination/study. > Interpreting Provider: Rl Marrero MD on 11/05/2023 11:04 AM Kathryn Quach MD DIAGNOSTIC IMAGING O RDERABLES * (ABNORMAL) CBC W/O DIFFERENTIAL (11/04/2023 1:56 AM CDT) WBC 6.2 4.0 - 10.7 x10E9/L 11/04/2023 2:14 AM CDT [facility] RBC Count 3.15(L) 3.90 - 5.20 x10E12/L 11/04/2023 2:14 AM [facility] Hemoglobin 11.7(L) 11.9 - 15.8 g/dL 11/04/2023 2:14 AM [facility] Hematocrit 32.7(L) 34.8 - 46.1 % 11/04/2023 2:14 AM [facility] MCV 103.8(H) 80.0 - 98.0 fL 11/04/2023 2:14 AM [facility] MCH 37.1(H) 26.7 - 33.6 pg 11/04/2023 2:14 AM [facility] MCHC 35.8 31.7 - 36.3 g/dL 11/04/2023 2:14 AM [facility] RDW-CV 15.5(H) 11.3 - 14.8 % 11/04/2023 2:14 AM [facility] Platelet Count 205 150 - 420 x10E9/L 11/04/2023 2:14 AM [facility] MPV 8.6 7.8 - 11.4 fL 11/04/2023 2:14 AM [facility] Blood BLOOD SPECIMEN / Unknown Lab Venipuncture / Unknown 11/04/2023 1:56 AM CDT 11/04/2023 2:09 AM CDT Gabriel Hill MD LAB - HEMATOLOGY ORD ERABLES Performing Organization Address [facility] Co de Phone Number [facility] [address] [place] [phone] [phone] * (ABNORMAL) BASIC METABOLIC PANEL (CALCIUM TOTAL) (11/04/2023 1:56 AM CDT) BUN 11 7 - 26 mg/dL 11/04/2023 2:37 AM [facility] Creatinine 0.60 0.56 - 0.96 mg/dL 11/04/2023 2:37 AM [facility] Sodium 140 136 - 145 mmol/L 11/04/2023 2:37 AM [facility] Potassium 3.7 3.5 - 4.5 mmol/L 11/04/2023 2:37 AM [facility] Chloride 108(H) 98 - 107 mmol/L 11/04/2023 2:37 AM [facility] CO2 24 22 - 29 mmol/L 11/04/2023 2:37 AM [facility] Glucose 103 70 - 115 mg/dL 11/04/2023 2:37 AM [facility] Calcium 8.8 8.4 - 10.2 mg/dL 11/04/2023 2:37 AM [facility] Anion Gap 8 6 - 16 11/04/2023 2:37 AM [facility] BUN/Creatinine Ratio 18 7 - 23 11/04/2023 2:37 AM [facility] Osmolality Calculated 290 275 - 295 mOsm/kg 11/04/2023 2:37 AM [facility] eGFR by CKD-EPI 89(L) >=90 mL/min/1.7 3 m2 11/04/2023 2:37 AM [facility] Blood BLOOD SPECIMEN / Unknown Lab Venipuncture / Unknown 11/04/2023 1:56 AM CDT 11/04/2023 2:09 AM CDT Gabriel Hill MD LAB - CHEMISTRY ORDNicholas HARTMANN Performing Organization Address City/[facility]/ZIP Co de Phone Number [address] [address], [facility] [phone] * MAGNESIUM BLOOD (11/04/2023 1:56 AM CDT) Magnesium 1.8 1.6 - 2.6 mg/dL 11/04/2023 2:37 AM T [facility] Blood BLOOD SPECIMEN / Unknown Lab Venipuncture / Unknown 11/04/2023 1:56 AM CDT 11/04/2023 2:09 AM CDT Gabriel Hill MD LAB - CHEMISTRY MARIA INES HARTMANN [address] [address], [facility] [phone] * PHOSPHORUS BLOOD (11/04/2023 1:56 AM CDT) Phosphorus 3.2 2.9 - 5.1 mg/dL 11/04/2023 2:37 AM [facility] Blood BLOOD SPECIMEN / Unknown Lab Venipuncture / Unknown 11/04/2023 1:56 AM CDT 11/04/2023 2:09 AM CDT Gabriel Hill MD LAB - CHEMISTRY MARIA INES HARTMANN [facility] Organization Address City/State/ZIP Co de Phone Number [facility] [address] [place] [address], [facility] [phone] * (ABNORMAL) CBC W/O DIFFERENTIAL (11/03/2023 2:40 AM CDT) WBC 5.7 4.0 - 10.7 x10E9/L 11/03/2023 3:14 AM [facility] RBC Count 3.06(L) 3.90 - 5.20 x10E12/L 11/03/2023 3:14 AM [facility] Hemoglobin 11.7(L) 11.9 - 15.8 g/dL 11/03/2023 3:14 AM [facility] Hematocrit 31.7(L) 34.8 - 46.1 % 11/03/2023 3:14 AM [facility] MCV 103.6(H) 80.0 - 98.0 fL 11/03/2023 3:14 AM [facility] MCH 38.2(H) 26.7 - 33.6 pg 11/03/2023 3:14 AM [facility] MCHC 36.9(H) 31.7 - 36.3 g/dL 11/03/2023 3:14 AM [facility] RDW-CV 16.0(H) 11.3 - 14.8 % 11/03/2023 3:14 AM [facility] Platelet Count 235 150 - 420 x10E9/L 11/03/2023 3:14 AM [facility] MPV 8.8 7.8 - 11.4 fL 11/03/2023 3:14 AM [facility] Blood BLOOD SPECIMEN / Unknown Venipuncture / Unknown 11/03/2023 2:40 AM CDT 11/03/2023 3:08 AM CDT Gabriel Hill MD LAB - HEMATOLOGY ORD ERABLES Performing Organization Address City/[facility]/ZIP Co de Phone Number [facility] [address] [place] [phone], [facility] [phone] * (ABNORMAL) BASIC METABOLIC PANEL (CALCIUM TOTAL) (11/03/2023 2:40 AM CDT) BUN 12 7 - 26 mg/dL 11/03/2023 3:33 AM [facility] Creatinine 0.60 0.56 - 0.96 mg/dL 11/03/2023 3:33 AM [facility] Sodium 142 136 - 145 mmol/L 11/03/2023 3:33 AM [facility] Potassium 3.7 3.5 - 4.5 mmol/L 11/03/2023 3:33 AM [facility] Chloride 108(H) 98 - 107 mmol/L 11/03/2023 3:33 AM [facility] CO2 27 22 - 29 mmol/L 11/03/2023 3:33 AM [facility] Glucose 104 70 - 115 mg/dL 11/03/2023 3:33 AM [facility] Calcium 8.7 8.4 - 10.2 mg/dL 11/03/2023 3:33 AM [facility] Anion Gap 7 6 - 16 11/03/2023 3:33 AM [facility] BUN/Creatinine Ratio 20 7 - 23 11/03/2023 3:33 AM [facility] Osmolality Calculated 294 275 - 295 mOsm/kg 11/03/2023 3:33 AM [facility] eGFR by CKD-EPI 89(L) >=90 mL/min/1.7 3 m2 11/03/2023 3:33 AM [facility] Blood BLOOD SPECIMEN / Unknown Venipuncture / Unknown 11/03/2023 2:40 AM CDT 11/03/2023 3:08 AM CDT Gabriel Hill MD LAB - CHEMISTRY MARIA INES HARTMANN Performing Organization Address City/[facility]/ZIP Co de Phone Number [address] [phone], [facility] [phone] * MAGNESIUM BLOOD (11/03/2023 2:40 AM CDT) Magnesium 1.9 1.6 - 2.6 mg/dL 11/03/2023 3:33 AM CDT [facility] Blood BLOOD SPECIMEN / Unknown Venipuncture / Unknown 11/03/2023 2:40 AM CDT 11/03/2023 3:08 AM CDT Gabriel Hill MD LAB - CHEMISTRY MARIA INES HARTMANN Performing Organization Address [facility]/ZIP Co de Phone Number [address] [address], [place] [phone] * PHOSPHORUS BLOOD (11/03/2023 2:40 AM CDT) Phosphorus 3.0 2.9 - 5.1 mg/dL 11/03/2023 3:33 AM CDT [facility] Blood BLOOD SPECIMEN / Unknown Venipuncture / Unknown 11/03/2023 2:40 AM CDT 11/03/2023 3:08 AM CDT Gabriel Hill MD LAB - CHEMISTRY MARIA INES HARTMANN Performing Organization Address City/[facility]/ZIP Co de Phone Number [address] [address], [place] [phone] * XR THORACIC SPINE 3VW (11/02/2023 4:31 PM CDT) Anatomical Region Laterality Modality Spine Radiographic Anahy ging 11/02/2023 5:14 PM CDT Narrative 11/03/2023 9:08 AM CDT PROCEDURE: ??XR THORACIC SPINE 3VW, DATE/TIME OF EXAM: ??11/02/2023 4:31 PM, LOCATION ??[facility] INDICATION: S22.42XA: Closed fracture of multiple ribs [...] noted. Report dictated by Lemuel Whitley DO (resident care supervisor). Quinton Jacques MD have personally reviewed and interpreted this examination/study. > Interpreting Provider: Quinton Peña MD on 11/03/2023 9:08 AM Procedure Note Quinton Peña MD - 11/03/2023 PROCEDURE: XR THORACIC SPINE 3VW, DATE/TIME OF EXAM: 11/02/2023 4:31PM, LOCATION [facility] INDICATION: S22.42XA: Closed fracture of multiple ribs [...] noted. Report dictated by Lemuel Whitley DO (resident care supervisor). Quinton Jacques MD have personally reviewed andinterpreted this examination/study. > Interpreting Provider: Quinton Peña MD on 11/03/2023 9:08AM Zhou Gutiérrez MD DIAGNOSTIC IMAGI NG ORDERABLES * BLOOD TYPE VERIFICATION (11/02/2023 10:36 AM CDT) ABO Rh O POS 11/02/2023 11:20 AM CDT [facility] BLOOD BANK LAB Blood Bank BLOOD SPECIMEN / Unknown Venipuncture / Unknown 11/02/2023 10:36 AM CDT 11/02/2023 10:45 AM CDT Kathryn Quach MD LAB - BLOOD BANK ORD ERABLES [facility] BLOOD BANK LAB [address] [place] [address], [facility] [phone] * (ABNORMAL) CBC W/O DIFFERENTIAL (11/02/2023 7:11 AM CDT) WBC 7.6 4.0 - 10.7 x10E9/L 11/02/2023 7:30 AM [facility] RBC Count 3.31(L) 3.90 - 5.20 x10E12/L 11/02/2023 7:30 AM [facility] Hemoglobin 12.3 11.9 - 15.8 g/dL 11/02/2023 7:30 AM [facility] Hematocrit 34.4(L) 34.8 - 46.1 % 11/02/2023 7:30 AM [facility] MCV 103.9(H) 80.0 - 98.0 fL 11/02/2023 7:30 AM [facility] MCH 37.2(H) 26.7 - 33.6 pg 11/02/2023 7:30 AM [facility] MCHC 35.8 31.7 - 36.3 g/dL 11/02/2023 7:30 AM [facility] RDW-CV 16.2(H) 11.3 - 14.8 % 11/02/2023 7:30 AM [facility] Platelet Count 247 150 - 420 x10E9/L 11/02/2023 7:30 AM [facility] MPV 8.9 7.8 - 11.4 fL 11/02/2023 7:30 AM [facility] Blood BLOOD SPECIMEN / Unknown Venipuncture / Unknown 11/02/2023 7:11 AM CDT 11/02/2023 7:26 AM T Gabriel Hill MD LAB - HEMATOLOGY ORD ERABLES [facility] [address] [place] [address], [facility] [phone] * (ABNORMAL) BASIC METABOLIC PANEL (CALCIUM TOTAL) (11/02/2023 7:[address] [facility]) BUN 14 7 - 26 mg/dL 11/02/2023 7:51 AM [facility] Creatinine 0.54(L) 0.56 - 0.96 mg/dL 11/02/2023 7:51 AM [facility] Sodium 141 136 - 145 mmol/L 11/02/2023 7:51 AM [facility] Potassium 4.5 3.5 - 4.5 mmol/L 11/02/2023 7:51 AM [facility] Chloride 108(H) 98 - 107 mmol/L 11/02/2023 7:51 AM [facility] CO2 24 22 - 29 mmol/L 11/02/2023 7:51 AM [facility] Glucose 98 70 - 115 mg/dL 11/02/2023 7:51 AM [facility] Calcium 9.0 8.4 - 10.2 mg/dL 11/02/2023 7:51 AM [facility] Anion Gap 9 6 - 16 11/02/2023 7:51 AM [facility] BUN/Creatinine Ratio 26(H) 7 - 23 11/02/2023 7:51 AM [facility] Osmolality Calculated 292 275 - 295 mOsm/kg 11/02/2023 7:51 AM [facility] eGFR by CKD-EPI >90 >=90 mL/min/1.7 3 m2 11/02/2023 7:51 AM CDT [facility] Blood BLOOD SPECIMEN / Unknown Venipuncture / Unknown 11/02/2023 7:11 AM CDT 11/02/2023 7:21 AM CDT Gabriel Hill MD LAB - CHEMISTRY MARIA INES HARTMANN [address] [address], [place] [phone] * MAGNESIUM BLOOD (11/02/2023 7:11 AM CDT) Magnesium 1.9 1.6 - 2.6 mg/dL 11/02/2023 7:51 AM CDT [facility] Blood BLOOD SPECIMEN / Unknown Venipuncture / Unknown 11/02/2023 7:11 AM CDT 11/02/2023 7:21 AM CDT Gabriel Hill MD LAB - CHEMISTRY MARIA INES HARTMANN Performing Organization Address City/[facility]/ZIP Co de Phone Number [address] [address], [place] [phone] * PHOSPHORUS BLOOD (11/02/2023 7:11 AM CDT) Phosphorus 3.0 2.9 - 5.1 mg/dL 11/02/2023 7:51 AM CDT [facility] Blood BLOOD SPECIMEN / Unknown Venipuncture / Unknown 11/02/2023 7:11 AM CDT 11/02/2023 7:21 AM CDT Gabriel Hill MD LAB - CHEMISTRY MAIRA INES HARTMANN [address] [address], [place] [phone] * TROPONIN-I HIGH SENSITIVE REFLEX 1HOUR (11/02/2023 1:27 AM CDT) Troponin I High Sensitive 6 <=14 ng/L 11/02/2023 2:06 AM [facility] Delta Troponin I HS 11/02/2023 2:06 AM [facility] Comment:Delta value intentio mayito not calculated. Baseline to 1 hour specimen collection interval exceeded. Blood BLOOD SPECIMEN / Unknown Venipuncture / Unknown 11/02/2023 1:27 AM CDT 11/02/2023 1:34 AM CDT Mckay Church MD LAB - CHEMISTRY MARIA INES HARTMANN [address] [address], [facility] [phone] * (ABNORMAL) URINALYSIS W/MICROSCOPIC NO CULTURE (11/02/2023 1:27 AM CDT) Color UA Yellow Straw, Yellow 11/02/2023 1:41 AM [facility] Clarity UA Clear Clear 11/02/2023 1:41 AM [facility] Specific [place] UA 1.044(H) 1.005 - 1.030 11/02/2023 1:41 AM [facility] pH UA 5.0 5.0 - 8.0 pH 11/02/2023 1:41 AM [facility] Protein UA Negative Negative 11/02/2023 1:41 AM [facility] Glucose UA Negative Negative 11/02/2023 1:41 AM [facility] Ketone UA Negative Negative 11/02/2023 1:41 AM [facility] Bilirubin UA Negative Negative 11/02/2023 1:41 AM [facility] Blood UA 3+(A) Negative 11/02/2023 1:41 AM [facility] Nitrite UA Negative Negative 11/02/2023 1:41 AM [facility] Leukocyte Esterase Negative Negative 11/02/2023 1:41 AM [facility] Urobilinogen UA Negative Negative mg/dL 11/02/2023 1:41 AM [facility] RBC UA 0-2 None Seen, 0-2, 3-5 /HPF 11/02/2023 1:41 AM [facility] WBC UA 0-5 None Seen, 0-5 /HPF 11/02/2023 1:41 AM [facility] Bacteria UA 1+(A) None /HPF 11/02/2023 1:41 AM [facility] Squamous Epithelial Cells UA None Seen None Seen, 0-2, 3-5 /HPF 11/02/2023 1:41 AM [facility] Mucus UA 1+ /LPF 11/02/2023 1:41 AM [facility] Urine URINE SPECIMEN OBTAINED BY CLEAN CATCH PROCEDURE / Unknown Collection / Unknown 11/02/2023 1:27 AM CDT 11/02/2023 1:32 AM [facility] - 11/02/2023 1:41 AM CDT Kathryn Quach MD LAB - URINALYSIS ORD ERABLES Performing Organization Address City/[facility] Co de Phone Number [address] [address], [facility] [phone] * (ABNORMAL) URINE DRUG SCREEN IMMUNOASSAY (11/02/2023 1:27 AM CDT) [facility] Amphetamines Screen Urine Negative Negative : < 1000 ng/mL 11/02/2023 1:54 AM [facility] Barbiturates Screen Urine Negative Negative : < 200 ng/mL 11/02/2023 1:54 AM [facility] Benzodiazepine Screen Urine Negative Negative : < 200 ng/mL 11/02/2023 1:54 AM [facility] Opiates Urine Positive(A) Negative : < 300 ng/mL 11/02/2023 1:54 AM [facility] Comment:Positive urine opiat e screening results should be confirmed by another generally accepted non-immunological method such as gas chromatography or mass spectrometry. Cocaine Metabolites Urine Negative Negative : < 300 ng/mL 11/02/2023 1:54 AM [facility] Phencyclidine Screen Urine Negative Negative : < 25 ng/ml 11/02/2023 1:54 AM [facility] Cannabinoids Screen Urine Negative Negative : <50 ng/mL 11/02/2023 1:54 AM CDT [facility] Methadone Screen Urine Negative Negative : < 300 ng/mL 11/02/2023 1:54 AM CDT [facility] Fentanyl Screen Urine Negative Negative : <1.5 ng/mL 11/02/2023 1:54 AM CDT [facility] Urine URINE / Unknown Collection / Unknown 11/02/2023 1:27 AM CDT 11/02/2023 1:32 AM CDT Narrative [facility] - 11/02/2023 1:54 AM CDT The Urine Toxicology Screening Panel does not screen for Propoxyphene, Meprobamate, Carisoprodol, Trazodone, dvop-rhw-cjcvxem medications and/or volatiles (Acetone, Isopropanol, Methanol or Ethylene Glycol). Ethanol, Salicylate, Acetaminophen, Tricyclic Antidepressants and several therapeutic drugs may be individually assayed in serum or plasma specimen. Toxicology testing by the [facility] is an aid to medical diagnosis and treatment of patients. No documented chain of custody was maintained. Results are intended to be used for clinical purposes only. ? Kathryn Quach MD LAB - URINE CHEMISTR Y ORDERABLES Performing Organization Address [facility]/State/[facility] Co de Phone Number [facility] [address] [place] [address], [facility] [phone] * EKG 12-LEAD (11/01/2023 8:04 PM CDT) Ventricular Rate 69 BPM [facility] MUSE QRS Duration ms 84 ms [facility] MUSE Q-T Interval ms 414 ms [facility] MUSE QTC Calculation (Bezet) 443 ms [facility] MUSE Calculated R Hanson 47 degrees [facility] MUSE Calculated T [place] 18 degrees [facility] MUSE Interpretation EKG NORMAL SINUS RHYTHM Normal EKG NO PREVIOUS ECGS AVAILABLE Confirmed by DORIS ??, VERNELL ([id number]) on 11/06/2023 9:10:03 AM [facility] MUSE 11/01/2023 8:04 PM CDT 11/06/2023 9:10 AM CDT Mckay Church MD ECG ORDERABLES Performing Organization Address [facility] Co de Phone [place] [facility] [place] TROPONIN-I HIGH SENSITIVE BASELINE + 1HR (11/01/2023 7:57 PM CDT) [facility] Troponin I High Sensitive 4 <=14 ng/L 11/01/2023 8:43 PM CDT [facility] Blood BLOOD SPECIMEN / Unknown Venipuncture / Unknown 11/01/2023 7:57 PM CDT 11/01/2023 8:00 PM CDT Mckay Church MD LAB - CHEMISTRY ORDE MARY KATE Performing Organization Address [facility] Co de Phone Number [facility] [address] [place] [phone], [facility] [phone] * ANTIBODY IDENTIFICATION (11/01/2023 7:56 PM CDT) [facility] Antibody 1 POS, Auto Anti-M 11/01/2023 11:49 PM CDT [facility] BLOOD BANK LAB Blood Bank BLOOD SPECIMEN / Unknown Venipuncture / Unknown 11/01/2023 7:56 PM CDT 11/01/2023 8:07 PM CDT Kathryn Quach MD LAB - BLOOD BANK ORD ERABLES Performing Organization Address [facility]/ZIP Co de Phone Number [facility] BLOOD BANK LAB [address] [place] [phone], [facility] [phone] * [facility] (11/01/2023 7:56 PM CDT) Direct Wilma (KAVIN) NEG 11/01/2023 9:20 PM CDT [facility] BLOOD BANK LAB Blood Bank BLOOD SPECIMEN / Unknown Venipuncture / Unknown 11/01/2023 7:56 PM CDT 11/01/2023 8:07 PM CDT Kathryn Quach MD LAB - BLOOD BANK ORD ERABLES [facility] BLOOD BANK LAB [address] [place] [address], [facility] [phone] * TYPE + SCREEN PANEL (11/01/2023 7:56 PM CDT) Pathologist [facility] Antibody Screen POS 8:50 PM CDT [facility] BLOOD BANK LAB ABO Rh O POS 11/01/2023 8:50 PM CDT [facility] BLOOD BANK LAB Blood Bank BLOOD SPECIMEN / Unknown Venipuncture / Unknown 11/01/2023 7:56 PM CDT 11/01/2023 8:07 PM CDT Kathryn Quahc MD LAB - BLOOD BANK ORD ERABLES [facility] BLOOD BANK LAB [address] [place] [address], [facility] [phone] * (ABNORMAL) TEG 6 GLOBAL HEMOSTASIS W/ LYSIS (11/01/2023 7:56 PM CDT) Citrated Kaolin R (Reaction Time) 3.4(L) 4.6 - 9.1 min 11/01/2023 9:12 PM CDT [facility] LABORATORY [facility] Comment:CK R result below no rmal range. Consistent with hypercoagulable clotting factors. Citrated Kaolin LY30 (Lysis) 0.0 0.0 - 2.6 % 11/01/2023 9:12 PM CDT [facility] LABORATORY [facility] Citrated Functional Fibrinogen MA (Max Amplitude) 18.6 15.0 - 32.0 mm 11/01/2023 9:12 PM [facility] Citrated RapidTEG MA (Max Amplitude) 58.8 52.0 - 70.0 mm 11/01/2023 9:12 PM [facility] Blood BLOOD SPECIMEN / Unknown Venipuncture / Unknown 11/01/2023 7:56 PM CDT 11/01/2023 8:15 PM CDT Kathryn Quach MD LAB - HEMATOLOGY ORD ERABLES [facility] [address] [place] [address], [facility] [phone] * (ABNORMAL) TEG 6S PLATELET MAPPING (11/01/2023 7:56 PM CDT) TEGPLM (Max Amplitude) Koalin 61.0 53.0 - 68.0 mm 11/01/2023 8:53 PM [facility] TEGPLM (Max Amplitude) ACTF 11.4 2.0 - 19.0 mm 11/01/2023 8:53 PM [facility] TEGPLM (Max Amplitude) ADP 24.0(L) 45.0 - 69.0 mm 11/01/2023 8:53 PM [facility] Comment:ADP MA below normal range. Inhibition present. TEGPLM (Max Amplitude) AA 13.2(L) 51.0 - 71.0 mm 11/01/2023 8:53 PM [facility] Comment:AA MA below normal r wanda. Inhibition present. TEGPLM %Inhibition ADP 74.6(H) 0.0 - 17.0 % 11/01/2023 8:53 PM [facility] TEGPLM %Inhibition AA 96.4(H) 0.0 - 11.0 % 11/01/2023 8:53 PM [facility] TEGPLM %Aggregation ADP 25.4(L) 83.0 - 100.0 % 11/01/2023 8:53 PM [facility] TEGPLM % Aggregation AA 3.6(L) 89.0 - 100.0 % 11/01/2023 8:53 PM CDT [facility] Blood BLOOD SPECIMEN / Unknown Venipuncture / Unknown 11/01/2023 7:56 PM CDT 11/01/2023 8:15 PM CDT Kathryn Quach MD LAB - HEMATOLOGY ORD ERABLES Performing Organization Address [facility] Co de Phone Number [address] [address], [facility] [phone] * (ABNORMAL) PT-INR [facility] (11/01/2023 7:56 PM CDT) Pathologist [facility] PT 15.5(H) 12.1 - 14.8 Seconds 11/01/2023 8:35 PM CDT [facility] INR 1.3 See Comment 11/01/2023 8:35 PM CDT [facility] Comment:The suggested therap eutic range for standard coumadin (warfarin) therapy is an INR of 2.0-3.0. For high-risk patients (Mechanical Mitral Valve Prosthesis, etc.), the suggested prophylactic therapeutic range is an INR of 2.5-3.5. Blood BLOOD SPECIMEN / Unknown Venipuncture / Unknown 11/01/2023 7:56 PM CDT 11/01/2023 8:01 PM CDT Kathryn Quach MD LAB - COAGULATION OR DERABLES Performing Organization Address City/[facility] Co de Phone Number [address] [address], [facility] [phone] * (ABNORMAL) CBC W AUTO DIFFERENTIAL (11/01/2023 7:56 PM CDT) WBC 6.8 4.0 - 10.7 x10E9/L 11/01/2023 9:34 PM CDT [facility] LABORATORY [facility] RBC Count 3.80(L) 3.90 - 5.20 x10E12/L 11/01/2023 9:34 PM CDT [facility] Hemoglobin 12.8 11.9 - 15.8 g/dL 11/01/2023 9:34 PM [facility] Hematocrit 38.8 34.8 - 46.1 % 11/01/2023 9:34 PM [facility] MCV 102.1(H) 80.0 - 98.0 fL 11/01/2023 9:34 PM [facility] MCH 33.7(H) 26.7 - 33.6 pg 11/01/2023 9:34 PM [facility] MCHC 33.0 31.7 - 36.3 g/dL 11/01/2023 9:34 PM [facility] Platelet Count 237 150 - 420 x10E9/L 11/01/2023 9:34 PM [facility] MPV 9.2 7.8 - 11.4 fL 11/01/2023 9:34 PM [facility] Neutrophil % 65.8 41.0 - 74.0 % 11/01/2023 9:34 PM [facility] Lymphocyte % 22.3 17.0 - 47.0 % 11/01/2023 9:34 PM [facility] Monocyte % 10.0 3.0 - 11.0 % 11/01/2023 9:34 PM [facility] Eosinophil % 0.9 0.0 - 7.0 % 11/01/2023 9:34 PM [facility] Basophil % 0.4 0.0 - 1.6 % 11/01/2023 9:34 PM [facility] Immature Granulocytes % 0.6 0.0 - 1.0 % 11/01/2023 9:34 PM [facility] Neutrophil Absolute 4.45 1.60 - 7.50 x10E9/L 11/01/2023 9:34 PM [facility] Lymphocyte Absolute 1.51 1.00 - 4.40 x10E9/L 11/01/2023 9:34 PM [facility] Monocyte Absolute 0.68 0.15 - 1.00 x10E9/L 11/01/2023 9:34 PM [facility] Eosinophil Absolute 0.06 0.00 - 0.60 x10E9/L 11/01/2023 9:34 PM [facility] Basophil Absolute 0.03 0.00 - 0.13 x10E9/L 11/01/2023 9:34 PM [facility] Blood BLOOD SPECIMEN / Unknown Venipuncture / Unknown 11/01/2023 7:56 PM CDT 11/01/2023 8:14 PM CDT Kathryn Quach MD LAB - HEMATOLOGY ORD ERABLES Performing Organization Address City/[facility]/ZIP Co de Phone Number [facility] [address] [place] [address], [facility] [phone] * (ABNORMAL) BASIC METABOLIC PANEL (CALCIUM TOTAL) (11/01/2023 7:56 PM CDT) BUN 20 7 - 26 mg/dL 11/01/2023 8:38 PM [facility] Creatinine 0.62 0.56 - 0.96 mg/dL 11/01/2023 8:38 PM [facility] Sodium 138 136 - 145 mmol/L 11/01/2023 8:38 PM [facility] Potassium 4.3 3.5 - 4.5 mmol/L 11/01/2023 8:38 PM [facility] Chloride 107 98 - 107 mmol/L 11/01/2023 8:38 PM [facility] CO2 21(L) 22 - 29 mmol/L 11/01/2023 8:38 PM [facility] Glucose 92 70 - 115 mg/dL 11/01/2023 8:38 PM [facility] Calcium 8.7 8.4 - 10.2 mg/dL 11/01/2023 8:38 PM [facility] Anion Gap 10 6 - 16 11/01/2023 8:38 PM [facility] BUN/Creatinine Ratio 32(H) 7 - 23 11/01/2023 8:38 PM [facility] Osmolality Calculated 288 275 - 295 mOsm/kg 11/01/2023 8:38 PM [facility] eGFR by CKD-EPI 88(L) >=90 mL/min/1.7 3 m2 11/01/2023 8:38 PM [facility] Blood BLOOD SPECIMEN / Unknown Venipuncture / Unknown 11/01/2023 7:56 PM CDT 11/01/2023 8:23 PM CDT Kathryn Quach MD LAB - CHEMISTRY MARIA INES HARTMANN Performing Organization Address [facility]/ZIP Co de Phone Number [facility] [address] [place] [address], [facility] [phone] * ALCOHOL ETHYL BLOOD (11/01/2023 7:56 PM CDT) Ethanol (mg/dL) <10 <10 mg/dL 8:38 PM CDT [facility] Ethanol Calculated (g/dL) <0.010 <=0.010 g/dL 11/01/2023 8:38 PM CDT [facility] Blood BLOOD SPECIMEN / Unknown Venipuncture / Unknown 11/01/2023 7:56 PM CDT 11/01/2023 8:23 PM CDT Narrative [facility] - 11/01/2023 8:38 PM CDT Ethanol Interp <10: None Detected. Depression of SHINGLE WEAVER: >100 mg/dl Potentially Critical: >250 mg/dl Potentially [...] CHEMISTRY MARIA INES HARTMANN Performing Organization Address City/[facility]/ZIP Co de Phone Number [facility] [address] [place] [address], [place] [phone] * CT CERVICAL SPINE WO CONTRAST (11/01/2023 [...] endplates at these levels, which may represent fesky-sn-nyiwrzpn microtrabecular fractures. No evidence of retropulsion. Recommend [...] DATE/TIME OF EXAM: 11/01/2023 7:48 PM, LOCATION: ??[facility] HISTORY: Trauma ADDITIONAL CLINICAL INFORMATION: Ordering Provider [...] dependent subsegmental atelectasis of the lung apices. Giex-bw-enccqneo calcific atherosclerosis of the carotid bulbs and moderate calcific atherosclerosis of the common carotid arteries. Multiple calcified mediastinal lymph nodes that is suggestive of prior healed granulomatous disease. THORACIC SPINE: ALIGNMENT: Mild kyphosis centered at the T5 level and uyii-fn-ufkkxybb levoconvex curvature of the upper thoracic spine without significant listhesis. No traumatic malalignment. BONES: Age-indeterminate compression fracture deformity of the T5 vertebral body superior endplate associated with a thin sclerotic line and with approximately 30% height loss anteriorly, which may represent an uxejb-fw-ekjcrusu microtrabecular fracture. Age-indeterminate compression fracture deformity of the T6 vertebral body superior endplate associated with a thin sclerotic line and with approximately 30% height loss centrally, which may represent an rpbpn-ij-nqajaaop microtrabecular fracture. Chronic-appearing wqfhvnr-ad-rxtx height loss remaining thoracic vertebral bodies. No retropulsion at any level. Osseous structures are markedly demineralized. DISCS: Multilevel mild disc space narrowing. DEGENERATIVE CHANGES: Overall vwsi-xy-spaphuur multilevel degenerative changes. ?? SPINAL CANAL/NEUROFORAMEN: No significant spinal canal stenosis. High-grade neuroforaminal narrowing at the right T2-T3 through T5-T6 levels and left T10-T11 level in addition to wktp-vc-vhhbnwcv neuroforaminal narrowing elsewhere. SOFT TISSUES: Visualized soft tissues are normal. OTHER: Dependent atelectasis of the lungs bilaterally. Mildly tortuous thoracic aorta with bheadbuc-jt-vwyema calcific atherosclerosis. Multiple calcified mediastinal lymph nodes [...] phenomena at all levels. DEGENERATIVE CHANGES: Overall bfcapgig-aa-scpitp multilevel degenerative change, characterized by varying degrees of posterior disc bulges, ligamentum flavum hypertrophy, and facet arthropathy. ?? SPINAL CANAL/NEUROFORAMEN: Multilevel spinal canal stenoses that is notably mild at the T12-L1 and L2-L3 levels, yuzdqoay-cm-hdrkkf at the L3-L4 and L4-L5 levels, and [...] DATE/TIME OF EXAM: 11/01/2023 7:48 PM, LOCATION: [facility] HISTORY: Trauma ADDITIONAL CLINICAL INFORMATION: Ordering Provider [...] dependent subsegmental atelectasis of the lung apices. Crxb-xk-crgbxyka calcific atherosclerosis of the carotid bulbs andmoderate calcific atherosclerosis of the common carotid arteries. Multiplecalcified mediastinal lymph nodes that is suggestive of prior healed granulomatous disease. THORACIC SPINE: ALIGNMENT: Mild kyphosis centered at the T5 level and bwsq-nb-qfxrsfyw levoconvex curvature of the upper thoracic spine without significant listhesis. No traumatic malalignment. BONES: Age-indeterminate compression fracture deformity of the J0vupctuguw body superior endplate associated with a thin sclerotic line and with approximately 30% height loss anteriorly, which may represent an dtecr-am-qvjteqpn microtrabecular fracture. Age-indeterminatecompression fracture deformity of the T6 vertebral body superior endplate associated with a thin sclerotic line and with approximately 30% height loss centrally, which may represent an gzixl-em-tagofweb microtrabecular fracture. Chronic-appearing zacheqr-wy-oqwt height loss remainingthoracic vertebral bodies. No retropulsion at any level. Osseous structures are markedly demineralized. DISCS: Multilevel mild disc space narrowing. DEGENERATIVE CHANGES: Overall txju-df-latqmfim multilevel degenerative changes. SPINAL CANAL/NEUROFORAMEN: No significant spinal canal stenosis.High-grade neuroforaminal narrowing at the right T2-T3 through T5-T6 levels andleft T10-T11 level in addition to nciu-wf-jkjwxbby neuroforaminal narrowing elsewhere. SOFT TISSUES: Visualized soft tissues are normal. OTHER: Dependent atelectasis of the lungs bilaterally. Mildly tortuous thoracic aorta with bywxyqpm-fk-ujvndf calcific atherosclerosis.Multiple calcified mediastinal lymph nodes that [...] of the L1 vertebral body resulting in jymepvccdawzd12% height loss associated with approximately 4 mm retropulsion and evidence prior vertebroplasty/kyphoplasty change. Remaining vertebral bodyheights are maintained. 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 Osseous structures are markedly demineralized. DISCS: Multilevel advanced disc space narrowing and vacuum discphenomena at all levels. DEGENERATIVE CHANGES: Overall iuvunynm-rs-fwmwhz multilevel degenerative change, characterized by varying degrees of posterior disc bulges, ligamentum flavum hypertrophy, and facet arthropathy. SPINAL CANAL/NEUROFORAMEN: Multilevel spinal canal stenoses that isnotably mild at the T12-L1 and L2-L3 levels, cxieodnl-el-bstdvb at the L3-L4 and L4-L5 levels, and [...] endplates at these levels, which may represent pvtlt-tg-newgrxzx microtrabecular fractures. No evidence of retropulsion. Recommend [...] endplates at these levels, which may represent pmuxw-tv-urvdopkt microtrabecular fractures. No evidence of retropulsion. Recommend [...] DATE/TIME OF EXAM: 11/01/2023 7:48 PM, LOCATION: ??[facility] HISTORY: Trauma ADDITIONAL CLINICAL INFORMATION: Ordering Provider [...] dependent subsegmental atelectasis of the lung apices. Hvwd-pg-zycnrmbz calcific atherosclerosis of the carotid bulbs and moderate calcific atherosclerosis of the common carotid arteries. Multiple calcified mediastinal lymph nodes that is suggestive of prior healed granulomatous disease. THORACIC SPINE: ALIGNMENT: Mild kyphosis centered at the T5 level and cdpi-lw-yobluuys levoconvex curvature of the upper thoracic spine without significant listhesis. No traumatic malalignment. BONES: Age-indeterminate compression fracture deformity of the T5 vertebral body superior endplate associated with a thin sclerotic line and with approximately 30% height loss anteriorly, which may represent an zsysn-oe-vxgszlsu microtrabecular fracture. Age-indeterminate compression fracture deformity of the T6 vertebral body superior endplate associated with a thin sclerotic line and with approximately 30% height loss centrally, which may represent an zhaqn-mz-sqctucxu microtrabecular fracture. Chronic-appearing olqhgjk-qb-qlbh height loss remaining thoracic vertebral bodies. No retropulsion at any level. Osseous structures are markedly demineralized. DISCS: Multilevel mild disc space narrowing. DEGENERATIVE CHANGES: Overall gxtr-va-zrhyhlpd multilevel degenerative changes. ?? SPINAL CANAL/NEUROFORAMEN: No significant spinal canal stenosis. High-grade neuroforaminal narrowing at the right T2-T3 through T5-T6 levels and left T10-T11 level in addition to nkjl-yp-igrverap neuroforaminal narrowing elsewhere. SOFT TISSUES: Visualized soft tissues are normal. OTHER: Dependent atelectasis of the lungs bilaterally. Mildly tortuous thoracic aorta with qsudjpyx-ml-uwimmo calcific atherosclerosis. Multiple calcified mediastinal lymph nodes [...] phenomena at all levels. DEGENERATIVE CHANGES: Overall okoosirs-ib-jcqawj multilevel degenerative change, characterized by varying degrees of posterior disc bulges, ligamentum flavum hypertrophy, and facet arthropathy. ?? SPINAL CANAL/NEUROFORAMEN: Multilevel spinal canal stenoses that is notably mild at the T12-L1 and L2-L3 levels, ukzqtfby-aj-opkwib at the L3-L4 and L4-L5 levels, and [...] DATE/TIME OF EXAM: 11/01/2023 7:48 PM, LOCATION: [facility] HISTORY: Trauma ADDITIONAL CLINICAL INFORMATION: Ordering Provider [...] dependent subsegmental atelectasis of the lung apices. Otxn-hk-dhrmfwnv calcific atherosclerosis of the carotid bulbs andmoderate calcific atherosclerosis of the common carotid arteries. Multiplecalcified mediastinal lymph nodes that is suggestive of prior healed granulomatous disease. THORACIC SPINE: ALIGNMENT: Mild kyphosis centered at the T5 level and czul-qj-ejtomcvo levoconvex curvature of the upper thoracic spine without significant listhesis. No traumatic malalignment. BONES: Age-indeterminate compression fracture deformity of the Z4lvezbhmyy body superior endplate associated with a thin sclerotic line and with approximately 30% height loss anteriorly, which may represent an rdunr-xe-ttmvixcv microtrabecular fracture. Age-indeterminatecompression fracture deformity of the T6 vertebral body superior endplate associated with a thin sclerotic line and with approximately 30% height loss centrally, which may represent an oehfy-xe-uiojkfsx microtrabecular fracture. Chronic-appearing zbpfkdo-sm-lsfj height loss remainingthoracic vertebral bodies. No retropulsion at any level. Osseous structures are markedly demineralized. DISCS: Multilevel mild disc space narrowing. DEGENERATIVE CHANGES: Overall iufa-fl-vqhpvdrr multilevel degenerative changes. SPINAL CANAL/NEUROFORAMEN: No significant spinal canal stenosis.High-grade neuroforaminal narrowing at the right T2-T3 through T5-T6 levels andleft T10-T11 level in addition to ecnq-qs-bfojkpkg neuroforaminal narrowing elsewhere. SOFT TISSUES: Visualized soft tissues are normal. OTHER: Dependent atelectasis of the lungs bilaterally. Mildly tortuous thoracic aorta with zfdsoihm-pb-ptwbpd calcific atherosclerosis.Multiple calcified mediastinal lymph nodes that [...] of the L1 vertebral body resulting in jjijlnwkdmbsg70% height loss associated with approximately 4 mm retropulsion and evidence prior vertebroplasty/kyphoplasty change. Remaining vertebral bodyheights are maintained. 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 Osseous structures are markedly demineralized. DISCS: Multilevel advanced disc space narrowing and vacuum discphenomena at all levels. DEGENERATIVE CHANGES: Overall dvqgksfn-zs-baktrn multilevel degenerative change, characterized by varying degrees of posterior disc bulges, ligamentum flavum hypertrophy, and facet arthropathy. SPINAL CANAL/NEUROFORAMEN: Multilevel spinal canal stenoses that isnotably mild at the T12-L1 and L2-L3 levels, kvshhubf-mn-roesnx at the L3-L4 and L4-L5 levels, and [...] endplates at these levels, which may represent lfmaw-li-hibzeqnq microtrabecular fractures. No evidence of retropulsion. Recommend [...] endplates at these levels, which may represent qrros-dx-karvgsut microtrabecular fractures. No evidence of retropulsion. Recommend [...] DATE/TIME OF EXAM: 11/01/2023 7:48 PM, LOCATION: ??[facility] HISTORY: Trauma ADDITIONAL CLINICAL INFORMATION: Ordering Provider [...] dependent subsegmental atelectasis of the lung apices. Cbec-ji-mdzsapfr calcific atherosclerosis of the carotid bulbs and moderate calcific atherosclerosis of the common carotid arteries. Multiple calcified mediastinal lymph nodes that is suggestive of prior healed granulomatous disease. THORACIC SPINE: ALIGNMENT: Mild kyphosis centered at the T5 level and pyix-du-wwcchbbi levoconvex curvature of the upper thoracic spine without significant listhesis. No traumatic malalignment. BONES: Age-indeterminate compression fracture deformity of the T5 vertebral body superior endplate associated with a thin sclerotic line and with approximately 30% height loss anteriorly, which may represent an qlyfz-dp-yucozkqp microtrabecular fracture. Age-indeterminate compression fracture deformity of the T6 vertebral body superior endplate associated with a thin sclerotic line and with approximately 30% height loss centrally, which may represent an gixfw-dt-ackqvywj microtrabecular fracture. Chronic-appearing kdfhnrj-ua-lyns height loss remaining thoracic vertebral bodies. No retropulsion at any level. Osseous structures are markedly demineralized. DISCS: Multilevel mild disc space narrowing. DEGENERATIVE CHANGES: Overall jfjz-si-hyppqiih multilevel degenerative changes. ?? SPINAL CANAL/NEUROFORAMEN: No significant spinal canal stenosis. High-grade neuroforaminal narrowing at the right T2-T3 through T5-T6 levels and left T10-T11 level in addition to mnsy-un-fphzbnkk neuroforaminal narrowing elsewhere. SOFT TISSUES: Visualized soft tissues are normal. OTHER: Dependent atelectasis of the lungs bilaterally. Mildly tortuous thoracic aorta with fezqnhel-xy-nkzcla calcific atherosclerosis. Multiple calcified mediastinal lymph nodes [...] phenomena at all levels. DEGENERATIVE CHANGES: Overall wgxaluae-cr-zmspeg multilevel degenerative change, characterized by varying degrees of posterior disc bulges, ligamentum flavum hypertrophy, and facet arthropathy. ?? SPINAL CANAL/NEUROFORAMEN: Multilevel spinal canal stenoses that is notably mild at the T12-L1 and L2-L3 levels, skhvbyzl-iq-aiolcx at the L3-L4 and L4-L5 levels, and [...] DATE/TIME OF EXAM: 11/01/2023 7:48 PM, LOCATION: [facility] HISTORY: Trauma ADDITIONAL CLINICAL INFORMATION: Ordering Provider [...] dependent subsegmental atelectasis of the lung apices. Adyj-gc-kbddqhlv calcific atherosclerosis of the carotid bulbs andmoderate calcific atherosclerosis of the common carotid arteries. Multiplecalcified mediastinal lymph nodes that is suggestive of prior healed granulomatous disease. THORACIC SPINE: ALIGNMENT: Mild kyphosis centered at the T5 level and mfqp-su-rzmkooza levoconvex curvature of the upper thoracic spine without significant listhesis. No traumatic malalignment. BONES: Age-indeterminate compression fracture deformity of the F7bvbeotbfh body superior endplate associated with a thin sclerotic line and with approximately 30% height loss anteriorly, which may represent an jjolh-vp-ixfgmayo microtrabecular fracture. Age-indeterminatecompression fracture deformity of the T6 vertebral body superior endplate associated with a thin sclerotic line and with approximately 30% height loss centrally, which may represent an hwdyq-mf-zczirycd microtrabecular fracture. Chronic-appearing rwteoot-ed-gges height loss remainingthoracic vertebral bodies. No retropulsion at any level. Osseous structures are markedly demineralized. DISCS: Multilevel mild disc space narrowing. DEGENERATIVE CHANGES: Overall fpah-np-odeqajyd multilevel degenerative changes. SPINAL CANAL/NEUROFORAMEN: No significant spinal canal stenosis.High-grade neuroforaminal narrowing at the right T2-T3 through T5-T6 levels andleft T10-T11 level in addition to jvqk-za-vadtkuyo neuroforaminal narrowing elsewhere. SOFT TISSUES: Visualized soft tissues are normal. OTHER: Dependent atelectasis of the lungs bilaterally. Mildly tortuous thoracic aorta with kdbtbfuc-dd-ffzvxh calcific atherosclerosis.Multiple calcified mediastinal lymph nodes that [...] of the L1 vertebral body resulting in utswsgakpjrus53% height loss associated with approximately 4 mm retropulsion and evidence prior vertebroplasty/kyphoplasty change. Remaining vertebral bodyheights are maintained. 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 Osseous structures are markedly demineralized. DISCS: Multilevel advanced disc space narrowing and vacuum discphenomena at all levels. DEGENERATIVE CHANGES: Overall qsuvaepo-nt-pqgmgz multilevel degenerative change, characterized by varying degrees of posterior disc bulges, ligamentum flavum hypertrophy, and facet arthropathy. SPINAL CANAL/NEUROFORAMEN: Multilevel spinal canal stenoses that isnotably mild at the T12-L1 and L2-L3 levels, zhhjropo-tq-carcrp at the L3-L4 and L4-L5 levels, and [...] endplates at these levels, which may represent tabes-ai-tpytcyzv microtrabecular fractures. No evidence of retropulsion. Recommend [...] pelvis. > Dictated by Paxton Whitley DO (resident care supervisor). I, Milad Mcnulty MD have personally reviewed and interpreted this examination/study. > Interpreting Provider: Milad Mcnulty MD on 11/01/2023 10:30 PM Narrative 11/01/2023 10:30 PM CDT PROCEDURE: ??CT CHEST ABDOMEN PELVIS W CONT, DATE/TIME OF EXAM: ??11/01/2023 7:48 PM, LOCATION ??[facility] INDICATION: Trauma ADDITIONAL CLINICAL INFORMATION: Ordering Provider [...] CONT, DATE/TIME OF EXAM:11/01/2023 7:48 PM, LOCATION [facility] INDICATION: Trauma ADDITIONAL CLINICAL INFORMATION: Ordering Provider [...] Impression: 1.Age-indeterminate, likely chronic, compression deformity of C1btrcuxzuw body with mild height loss. Refer to dedicated spine CT. 2.Otherwise, no acute chest, abdomen, or pelvis. > Dictated by Paxton Whitley DO (resident care supervisor). I, Milad Mcnulty MD have personally reviewed [...] endplates at these levels, which may represent awwzh-lq-prhkadng microtrabecular fractures. No evidence of retropulsion. Recommend [...] DATE/TIME OF EXAM: 11/01/2023 7:48 PM, LOCATION: ??[facility] HISTORY: Trauma ADDITIONAL CLINICAL INFORMATION: Ordering Provider [...] dependent subsegmental atelectasis of the lung apices. Sgcd-nc-sifjazbu calcific atherosclerosis of the carotid bulbs and moderate calcific atherosclerosis of the common carotid arteries. Multiple calcified mediastinal lymph nodes that is suggestive of prior healed granulomatous disease. THORACIC SPINE: ALIGNMENT: Mild kyphosis centered at the T5 level and haam-rq-rdbnvqkn levoconvex curvature of the upper thoracic spine without significant listhesis. No traumatic malalignment. BONES: Age-indeterminate compression fracture deformity of the T5 vertebral body superior endplate associated with a thin sclerotic line and with approximately 30% height loss anteriorly, which may represent an mnyuf-kn-lszqpjgl microtrabecular fracture. Age-indeterminate compression fracture deformity of the T6 vertebral body superior endplate associated with a thin sclerotic line and with approximately 30% height loss centrally, which may represent an rdvua-fo-agsbywdh microtrabecular fracture. Chronic-appearing ecxfrbf-aa-afpf height loss remaining thoracic vertebral bodies. No retropulsion at any level. Osseous structures are markedly demineralized. DISCS: Multilevel mild disc space narrowing. DEGENERATIVE CHANGES: Overall qkcu-oo-wmnbqlpe multilevel degenerative changes. ?? SPINAL CANAL/NEUROFORAMEN: No significant spinal canal stenosis. High-grade neuroforaminal narrowing at the right T2-T3 through T5-T6 levels and left T10-T11 level in addition to wtxy-lc-mtaylxhw neuroforaminal narrowing elsewhere. SOFT TISSUES: Visualized soft tissues are normal. OTHER: Dependent atelectasis of the lungs bilaterally. Mildly tortuous thoracic aorta with mmoaqvyf-aq-gipprv calcific atherosclerosis. Multiple calcified mediastinal lymph nodes [...] phenomena at all levels. DEGENERATIVE CHANGES: Overall qizkhitg-kt-klyspe multilevel degenerative change, characterized by varying degrees of posterior disc bulges, ligamentum flavum hypertrophy, and facet arthropathy. ?? SPINAL CANAL/NEUROFORAMEN: Multilevel spinal canal stenoses that is notably mild at the T12-L1 and L2-L3 levels, csljjikw-rd-kqkngk at the L3-L4 and L4-L5 levels, and [...] DATE/TIME OF EXAM: 11/01/2023 7:48 PM, LOCATION: [facility] HISTORY: Trauma ADDITIONAL CLINICAL INFORMATION: Ordering Provider [...] dependent subsegmental atelectasis of the lung apices. Yxeh-gi-vuplfqqo calcific atherosclerosis of the carotid bulbs andmoderate calcific atherosclerosis of the common carotid arteries. Multiplecalcified mediastinal lymph nodes that is suggestive of prior healed granulomatous disease. THORACIC SPINE: ALIGNMENT: Mild kyphosis centered at the T5 level and ijms-wf-kyrpdqsp levoconvex curvature of the upper thoracic spine without significant listhesis. No traumatic malalignment. BONES: Age-indeterminate compression fracture deformity of the Y4pwfqahxyv body superior endplate associated with a thin sclerotic line and with approximately 30% height loss anteriorly, which may represent an qglfn-zb-fhzypkne microtrabecular fracture. Age-indeterminatecompression fracture deformity of the T6 vertebral body superior endplate associated with a thin sclerotic line and with approximately 30% height loss centrally, which may represent an ljuak-bx-tfyibgno microtrabecular fracture. Chronic-appearing toxtwek-qd-udcj height loss remainingthoracic vertebral bodies. No retropulsion at any level. Osseous structures are markedly demineralized. DISCS: Multilevel mild disc space narrowing. DEGENERATIVE CHANGES: Overall ldva-iz-alhoytrn multilevel degenerative changes. SPINAL CANAL/NEUROFORAMEN: No significant spinal canal stenosis.High-grade neuroforaminal narrowing at the right T2-T3 through T5-T6 levels andleft T10-T11 level in addition to auzg-fz-xxhppleg neuroforaminal narrowing elsewhere. SOFT TISSUES: Visualized soft tissues are normal. OTHER: Dependent atelectasis of the lungs bilaterally. Mildly tortuous thoracic aorta with dmkzfath-sa-jjilcf calcific atherosclerosis.Multiple calcified mediastinal lymph nodes that [...] of the L1 vertebral body resulting in adbtgasgguqby10% height loss associated with approximately 4 mm retropulsion and evidence prior vertebroplasty/kyphoplasty change. Remaining vertebral bodyheights are maintained. 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 Osseous structures are markedly demineralized. DISCS: Multilevel advanced disc space narrowing and vacuum discphenomena at all levels. DEGENERATIVE CHANGES: Overall nhkamsco-qy-qcbtga multilevel degenerative change, characterized by varying degrees of posterior disc bulges, ligamentum flavum hypertrophy, and facet arthropathy. SPINAL CANAL/NEUROFORAMEN: Multilevel spinal canal stenoses that isnotably mild at the T12-L1 and L2-L3 levels, qvgqmnuh-xe-hnaral at the L3-L4 and L4-L5 levels, and [...] endplates at these levels, which may represent znmtv-ku-kxaxsgbw microtrabecular fractures. No evidence of retropulsion. Recommend [...] endplates at these levels, which may represent vnues-ut-yllzxvvm microtrabecular fractures. No evidence of retropulsion. Recommend [...] DATE/TIME OF EXAM: 11/01/2023 7:48 PM, LOCATION: ??[facility] HISTORY: Trauma ADDITIONAL CLINICAL INFORMATION: Ordering Provider [...] dependent subsegmental atelectasis of the lung apices. Weqp-ex-rkepmwxn calcific atherosclerosis of the carotid bulbs and moderate calcific atherosclerosis of the common carotid arteries. Multiple calcified mediastinal lymph nodes that is suggestive of prior healed granulomatous disease. THORACIC SPINE: ALIGNMENT: Mild kyphosis centered at the T5 level and ojar-ua-qqkkyyvj levoconvex curvature of the upper thoracic spine without significant listhesis. No traumatic malalignment. BONES: Age-indeterminate compression fracture deformity of the T5 vertebral body superior endplate associated with a thin sclerotic line and with approximately 30% height loss anteriorly, which may represent an wmznb-va-ldsyaned microtrabecular fracture. Age-indeterminate compression fracture deformity of the T6 vertebral body superior endplate associated with a thin sclerotic line and with approximately 30% height loss centrally, which may represent an ptcnd-kw-bstjmnba microtrabecular fracture. Chronic-appearing itdxlpv-gt-yzki height loss remaining thoracic vertebral bodies. No retropulsion at any level. Osseous structures are markedly demineralized. DISCS: Multilevel mild disc space narrowing. DEGENERATIVE CHANGES: Overall mkha-ca-csaanfyr multilevel degenerative changes. ?? SPINAL CANAL/NEUROFORAMEN: No significant spinal canal stenosis. High-grade neuroforaminal narrowing at the right T2-T3 through T5-T6 levels and left T10-T11 level in addition to otao-be-ufbizvdq neuroforaminal narrowing elsewhere. SOFT TISSUES: Visualized soft tissues are normal. OTHER: Dependent atelectasis of the lungs bilaterally. Mildly tortuous thoracic aorta with yvljtdsz-dc-lsofdn calcific atherosclerosis. Multiple calcified mediastinal lymph nodes [...] phenomena at all levels. DEGENERATIVE CHANGES: Overall tqbgdqym-rt-gbndwh multilevel degenerative change, characterized by varying degrees of posterior disc bulges, ligamentum flavum hypertrophy, and facet arthropathy. ?? SPINAL CANAL/NEUROFORAMEN: Multilevel spinal canal stenoses that is notably mild at the T12-L1 and L2-L3 levels, fvvmmvzb-sx-gorutm at the L3-L4 and L4-L5 levels, and [...] DATE/TIME OF EXAM: 11/01/2023 7:48 PM, LOCATION: [facility] HISTORY: Trauma ADDITIONAL CLINICAL INFORMATION: Ordering Provider [...] dependent subsegmental atelectasis of the lung apices. Gicq-yu-tlwnitzc calcific atherosclerosis of the carotid bulbs andmoderate calcific atherosclerosis of the common carotid arteries. Multiplecalcified mediastinal lymph nodes that is suggestive of prior healed granulomatous disease. THORACIC SPINE: ALIGNMENT: Mild kyphosis centered at the T5 level and hlfy-ht-zcgqbxiu levoconvex curvature of the upper thoracic spine without significant listhesis. No traumatic malalignment. BONES: Age-indeterminate compression fracture deformity of the O2jncxkqfnp body superior endplate associated with a thin sclerotic line and with approximately 30% height loss anteriorly, which may represent an yzgve-ub-lenrqjna microtrabecular fracture. Age-indeterminatecompression fracture deformity of the T6 vertebral body superior endplate associated with a thin sclerotic line and with approximately 30% height loss centrally, which may represent an lrptf-os-ytnflnbs microtrabecular fracture. Chronic-appearing boasudv-jt-anih height loss remainingthoracic vertebral bodies. No retropulsion at any level. Osseous structures are markedly demineralized. DISCS: Multilevel mild disc space narrowing. DEGENERATIVE CHANGES: Overall evqs-yb-mveexkdu multilevel degenerative changes. SPINAL CANAL/NEUROFORAMEN: No significant spinal canal stenosis.High-grade neuroforaminal narrowing at the right T2-T3 through T5-T6 levels andleft T10-T11 level in addition to rxly-vy-phoutfor neuroforaminal narrowing elsewhere. SOFT TISSUES: Visualized soft tissues are normal. OTHER: Dependent atelectasis of the lungs bilaterally. Mildly tortuous thoracic aorta with whwqyqka-vs-ewyeuf calcific atherosclerosis.Multiple calcified mediastinal lymph nodes that [...] of the L1 vertebral body resulting in pebqoanavhxsu44% height loss associated with approximately 4 mm retropulsion and evidence prior vertebroplasty/kyphoplasty change. Remaining vertebral bodyheights are maintained. 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 Osseous structures are markedly demineralized. DISCS: Multilevel advanced disc space narrowing and vacuum discphenomena at all levels. DEGENERATIVE CHANGES: Overall eptdbxtz-sk-imxiev multilevel degenerative change, characterized by varying degrees of posterior disc bulges, ligamentum flavum hypertrophy, and facet arthropathy. SPINAL CANAL/NEUROFORAMEN: Multilevel spinal canal stenoses that isnotably mild at the T12-L1 and L2-L3 levels, crflgmuv-xn-sxgczh at the L3-L4 and L4-L5 levels, and [...] endplates at these levels, which may represent xnhvo-rj-vhgfebbo microtrabecular fractures. No evidence of retropulsion. Recommend [...] Report dictated by Sarah Keith Dr, MD (resident care supervisor). I, Loreto Bone MD have personally reviewed and interpreted this examination/study. > Interpreting Provider: Loreto Bone MD on 11/01/2023 9:17 PM Narrative 11/01/2023 9:17 PM CDT PROCEDURE: ??XR PELVIS 1 OR 2VW, DATE/TIME OF EXAM: ??11/01/2023 7:10 PM, LOCATION ??[facility] INDICATION: T14.90XA: Trauma ADDITIONAL CLINICAL INFORMATION: Ordering [...] DATE/TIME OF EXAM: 11/01/2023 7:10 PM, LOCATION [facility] INDICATION: T14.90XA: Trauma ADDITIONAL CLINICAL INFORMATION: Ordering [...] Report dictated by Sarah Keith Dr, MD (resident care supervisor). Loreto Jacques MD have personally reviewed and [...] DATE/TIME OF EXAM: ??11/01/2023 7:10 PM, LOCATION ??[facility] INDICATION: Trauma ADDITIONAL CLINICAL INFORMATION: COMPARISON: None. [...] Report dictated by Sarah Keith Dr, MD (resident care supervisor). Loreto Jacques MD have personally reviewed and interpreted this examination/study. > Interpreting Provider: Loreto Bone MD on 11/01/2023 9:17 PM Procedure Note Loreto Bone MD - 11/01/2023 PROCEDURE: XR CHEST 1VW PORTABLE, DATE/TIME OF EXAM: 11/01/2023 7:10PM, LOCATION [facility] INDICATION: Trauma ADDITIONAL CLINICAL INFORMATION: COMPARISON: None. [...] Report dictated by Sarah Keith Dr, MD (resident care supervisor). I, Loreto Bone MD have personally reviewed and interpreted this examination/study. > Interpreting Provider: Loreto Bone MD on 49:17 PM Kathryn Quach MD DIAGNOSTIC IMAGING O RDERABLES documented in this encounter Visit Diagnoses Diagnosis Other closed fracture of thoracic vertebra, unspecified thoracic vertebral level, initial encounter ([facility])- Primary Trauma Injury, other and unspecified, unspecified site Closed fracture of multiple ribs of left side, initial encounter Other closed fracture of thoracic vertebra, unspecified thoracic vertebral level, initial encounter ([facility]) Allergies Trauma Injury, other and unspecified, unspecified [...] 11/06/2023 1:24 PM CDT 40 mg HYDROcodone-acetaminophen ([place]) 10-325 MG tablet 1 tablet 1 tablet, [...] Flowers RN) 0603 (Not Administered - Provider: Ella Flowers RN - Reason: Documented on duplicate [...] Flowers RN)1408 (Not Administered - Provider: Kevin Smith RN - Reason: Loss of Access) amLODIPine [...] - Provider: Kevin Smith RN) HYDROcodone-acetaminophe n ([place]) 10-325 MG tablet 1 tablet 1 tablet, [...] Beltran RN)2154 ($ Given - Provider: Ella Flowres RN) 1005 ($ Given - Provider: Kevin [...] 25 mcg 0843 ($ Given - Provider: Melissa Beltran RN) 1003 ($ Given - Provider: Kvein Smith, RN) zinc gluconate tablet 50 mg [...] intake documented in this encounter Care Teams Summer Intern Relationship Specialty Start Date End Date Pierre Acuna DO [address] [place] [address] PCP - General Family Medicine 11/02/23 documented as of this encounter
--- OUTSIDE RECORDS SUMMARY | 2024-06-09 05:24 | XMS_ITS | Encounter Summary ---
Author Organization [facility] Address [address] [place] [address] Care Team Providers Care Director Of Regulatory Affairs Name Role Phone Pierre Acuna DO Primary Care Provider [phone] Reason for Visit * Reason Onset Date Comments General 01/13/2024 Encounter Details Date Type Department Care Team (Late st Contact Info) Description 01/13/2024 Telephone [facility] - Neurosurgery [address] [place] [address] Shannan Rogel, RN General Social [...] and heating? Not hard at all 11/03/2023 [facility] [place] [facility] - Occupational Stress [...] place to sleep or slept in a prison (including now)? No 11/03/2023 Sex and Gender [...] be faxed to the Pain Center at [phone]. Office discharge note sent to office. documented in this encounter Plan of Treatment Not on file documented as of this encounter Visit Diagnoses Not on filedocumented in this encounter Care Teams Director Of Regulatory Affairs Relationship Specialty Start Date End Date Pierre Acuna DO [address] [place] [address] PCP - General Family Medicine 11/02/23 documented as of this encounter
--- OUTSIDE RECORDS SUMMARY | 2024-06-09 05:24 | XMS_ITS | Clinical Summary ---
Author Organization [facility] Address [address] [place] [address] Care Team Providers Care Clothing Sorter Name Role Phone Pierre Acuna Primary Care Provider [phone] Source Comments [facility],non-owned Affiliates and Associated Physician Practices is amultiple site organization consisting of ambulatory clinics and hospital sitesin [place], [place], [place] and [place]. This disclosure is being madepursuant to the Care Everywhere program and may not contain all information available regarding this patient. Last updated 18.[facility] Allergies Active Allergy Reactions Criticality Noted Date [...] by mouth once daily Active HYDROcodone-acetami nophen ([place]) 10-325 MG tabletIndications:C losed fracture of multiple [...] 12 patch 11/05/2023 11/04/2024 Active nystatin (Mycostatin) 292414 UNIT/GM powder APPLY TO AFFECTED AREA 2 [...] and heating? Not hard at all 11/03/2023 [facility] - Occupational [...] place to sleep or slept in a penitentiary (including now)? No 11/03/2023 Sex and Gender [...] 1:41 AM 11/08/2023 6:46 PM Care Teams Clothing Sorter Relationship Specialty Start Date End Date Pierre Acuna DO [address] [place] [id number] PCP - General Family Medicine 11/02/23
--- OUTSIDE RECORDS SUMMARY | 2024-06-09 05:24 | XMS_ITS | Encounter Summary ---
Author Organization [facility] Address [address] [place] [address] Care Team Providers Care Metal Bonding Helper Name Role Phone Pierre Acuna DO Primary Care Provider [phone] Reason for Referral * PT/OT/ST (Routine) - Pending Review Specialty Diagnoses / Procedures Referred By Contac t Referred To Contact Diagnoses Closed fracture of thoracic vertebra without spinal cord injury with routine healing, subsequent encounter Zhou Gutiérrez MD [address] [facility] [address] [place] [address] Referral ID Status Reason Start Date Expiration Date Visits Requested Visits Authorized [id number] Pending Review Specialty Services Required 01/12/2024 01/11/2025 12 12 Reason for Visit * Reason Comments Establish Care * Consult, Test & Treat (Routine) - Open Specialty Diagnoses / Procedures Referred By Contac t Referred To Contact Neurological Surgery Diagnoses Follow-up exam Procedures [place] UNLISTED E/M SERVICE Pierre Acuna DO [address] [place] [address] Zhou Gutiérrez MD [address] [facility] [address] [place] [address] Referral ID Status Reason Start Date Expiration Date Visits Re quested Visits Authorized [id number] Open 06/23/2023 06/22/2024 99 99 Encounter Details Date Type Department Care Team (Late st Contact Info) Description 01/12/2024 10:30 AM CDT Office Visit [facility] - Neurosurgery [address] [facility] [place] [address] Zhou Gutiérrez MD [address] [facility] [address] [place] [id number] Closed fracture of thoracic vertebra without spinal [...] and heating? Not hard at all 11/03/2023 [facility] [place] [facility] - Occupational Stress [...] place to sleep or slept in a care home (including now)? No 11/03/2023 Sex and [...] For any questions please contact Shannan at [phone] For appointments call Centralized Scheduling at [phone] documented in this encounter Progress Notes * Zhou Gutiérrez MD - 01/12/2024 10:43 AM CDT NAME Promise Fierro [address] [facility] [id number] DATE OF VISIT: 01/12/24 I had the pleasure of seeing Ms. Fierro in the neurosurgery office today HISTORY OF THE PRESENT ILLNESS: Ms. Fierro is a very pleasant 83-year-old lady with past medical history significant for hypertension PE on Eliquis came to [facility] on 11/01/2003 after a ground-level fall. At [...] No Stress: No Stress Concern Present (11/03/2023) [facility] [place] [facility] - Occupational Stress Questionnaire [...] by mouth once daily Each morning HYDROcodone-acetaminophen ([place]) 10-325 MG tablet Take 1 (one) tablet [...] tablet by mouth once daily nystatin (Mycostatin) 769309 UNIT/GM powder Apply to affected area 2 [...] Order Schedule Ref to Physical Therapy - [facility] PT Outpatient Referral Routine Closed fracture of thoracic vertebra without spinal cord injury with routine healing, subsequent encounter 1 Occurrences starting 01/12/2024 until 01/11/2025 documented as of this encounter Visit Diagnoses Diagnosis Closed fracture of thoracic vertebra without spinal cord injury with routine healing, subsequent encounter- Primary documented in this encounter Care Teams Metal Bonding Helper Relationship Specialty Start Date End Date Pierre Acuna DO [address] [place] [address] PCP - General Family Medicine 11/02/23 documented as of this encounter
--- OUTSIDE RECORDS SUMMARY | 2024-06-09 05:24 | XMS_ITS | Referral Summary ---
Author Organization [facility] Address [address] [place] [address] Care Team Providers Care Automotive Parts Person Name Role Phone Pierre Acuna Primary Care Provider [phone] Source Comments [facility],non-owned Affiliates and Associated Physician Practices is amultiple site organization consisting of ambulatory clinics and hospital sitesin [place], [place], [place] and [place]. This disclosure is being madepursuant to the Care Everywhere program and may not contain all information available regarding this patient. Last updated 18.[facility] Allergies Active Allergy Reactions Criticality Noted Date [...] by mouth once daily Active HYDROcodone-acetami nophen ([place]) 10-325 MG tabletIndications:C losed fracture of multiple [...] 12 patch 11/05/2023 11/04/2024 Active nystatin (Mycostatin) 636730 UNIT/GM powder APPLY TO AFFECTED AREA 2 [...] and heating? Not hard at all 11/03/2023 [facility] [place] [facility] - Occupational Stress [...] 1:41 AM 11/08/2023 6:46 PM Care Teams Automotive Parts Person Relationship Specialty Start Date End Date Pierre Acuna DO [address] [place] [id number] PCP - General Family Medicine 11/02/23
--- OUTSIDE RECORDS SUMMARY | 2024-06-09 05:24 | XMS_ITS | Clinical Summary ---
Author Organization Unknown Care Team Providers Care Steel Erector Apprentice Name Role Phone NAMAN VALDOVINOS, EVAN Unavailable Unavailable EAGLE BEND PHYSICAL THERAPIST, DEMARCUS Unavailabl e Unavailable BAKER INSTRUCTION DEAN, EITAN Unavail able Unavailable NELLY REGISTERED NURSE, ALBINA Unavailable Unavailable DENISSE OT, SHELDON Unavailable Unavailabl e Payers Payer Name Policy Type Policy Number Effective Date Expira tion Date MEDICARE [place] - EPISODIC [id number] Problems Condition Name Condition Details Condition Category [...] KNEE JOINT, BILATERAL Active 10-21 00:00: 00 HALFWAY (CURRENT) USE OF ANTICOAGULAN TS Active - [...] 2022-06 00:00: 00 11-12 23:59 :00 No [id number] BLOOD THINNER; BLOOD CLOT PREVENTION 1 tablet TWICE DAILY 1 tablet TWICE DAILY (route: oral) Med Classific ation: Hematolog ical Agents famotidine 20 mg tablet 2022-06 00:00: 00 11-12 23:59 :00 No [id number] GERD 1 tablet TWICE DAILY 1 tablet TWICE DAILY (route: oral) Med Classific ation: Gastroint estinal Therapy Agents furosemide 40 mg tablet 2022-06 00:00: 00 11-12 23:59 :00 No [id number] HTN/EDEMA 1 tablet ONCE DAILY 1 tablet ONCE DAILY (route: oral) Med Classific ation: Cardiovas cular Therapy Agents hydrocodone 10 mg-acetamin ophen 325 mg tablet 2022-06 00:00: 00 11-12 23:59 :00 No [id number] PAIN 1 tablet EVERY 8 HOURS 1 tablet EVERY 8 HOURS (route: oral) Med Classific ation: Analgesic , Anti-infl ammatory or Antipyret ic irbesartan 150 mg tablet 2022-06 00:00: 00 11-12 23:59 :00 No [id number] HTN 1 tablet ONCE DAILY 1 tablet ONCE DAILY (route: oral) Med Classific ation: Cardiovas cular Therapy Agents Lumigan 0.01 % eye drops 2022-06 00:00: 00 11-12 23:59 :00 No [id number] EYES 1 drops ONCE DAILY 1 drops ONCE DAILY (route: ophthalmic (eye)) Med Classific ation: Ophthalmi c Agents metoprolol succinate ER 100 mg tablet,exte nded release 24 hr 2022-06 00:00: 00 11-12 23:59 :00 No [id number] HTN 1 tablet ONCE DAILY 1 tablet ONCE DAILY (route: oral) Med Classific ation: Cardiovas cular Therapy Agents paroxetine 20 mg tablet 2022-06 00:00: 00 11-12 23:59 :00 No [id number] MOOD 1 tablet ONCE DAILY 1 tablet ONCE DAILY (route: oral) Med Classific ation: Central Nervous System Agents potassium chloride ER 10 mEq tablet,exte nded release 2022-06 00:00: 00 11-12 23:59 :00 No [id number] LOW POTASSIUM 1 tablet ONCE DAILY 1 tablet ONCE DAILY (route: oral) Med Classific ation: Electroly te Balance-N utritiona l Products amlodipine 5 mg tablet 11-18 00:00: 00 Yes [id number] HTN 1 tablet ONCE DAILY 1 tablet ONCE DAILY (route: oral) Med Classific ation: Cardiovas cular Therapy Agents atorvastati n 40 mg tablet 11-18 00:00: 00 Yes [id number] HLD 1 tablet ONCE DAILY 1 tablet ONCE DAILY (route: oral) Med Classific ation: Cardiovas cular Therapy Agents bimatoprost 0.03 % eye drops 11-18 00:00: 00 Yes [id number] GLAUCOMA 1 drops AT BEDTIME 1 drops AT BEDTIME (route: ophthalmic (eye)) Med Classific ation: Ophthalmi c Agents Eliquis 5 mg tablet 11-18 00:00: 00 Yes [id number] BLOOD CLOTS 1 tablet TWICE DAILY 1 tablet TWICE DAILY (route: oral) Med Classific ation: Hematolog ical Agents famotidine 20 mg tablet 11-18 00:00: 00 Yes [id number] GERD 2 tablet ONCE DAILY 2 tablet ONCE DAILY (route: oral) Med Classific ation: Gastroint estinal Therapy Agents furosemide 40 mg tablet 11-18 00:00: 00 Yes [id number] WATER PILL 1 tablet ONCE DAILY 1 tablet ONCE DAILY (route: oral) Med Classific ation: Cardiovas cular Therapy Agents hydrocodone 10 mg-acetamin ophen 325 mg tablet 11-18 00:00: 00 Yes [id number] PAIN 1 tablet EVERY 8 HOURS 1 tablet EVERY 8 HOURS (route: oral) Med Classific ation: Analgesic , Anti-infl ammatory or Antipyret ic levothyroxi ne 75 mcg tablet 11-18 00:00: 00 Yes [id number] HYPOTHYROID ISM 1 tablet ONCE DAILY 1 tablet ONCE DAILY (route: oral) Med Classific ation: Endocrine Lidocaine Pain Relief 4 % topical patch 11-18 00:00: 00 Yes [id number] PAIN 1 adhesiv e patch, medicat ed ONCE DAILY 1 adhesive patch, medicated ONCE DAILY (route: topical) Med Classific ation: Dermatolo gical losartan 25 mg tablet 11-18 00:00: 00 12-20 23:59 :00 No [id number] HTN 3 tablet ONCE DAILY 3 tablet ONCE DAILY (route: oral) Med Classific ation: Cardiovas cular Therapy Agents metoprolol tartrate 100 mg tablet 11-18 00:00: 00 Yes [id number] HTN 1 tablet ONCE DAILY 1 tablet ONCE DAILY (route: oral) Med Classific ation: Cardiovas cular Therapy Agents paroxetine 20 mg tablet 11-18 00:00: 00 Yes [id number] ANXIETY AND DEPRESSON 1 tablet ONCE DAILY 1 tablet ONCE DAILY (route: oral) Med Classific ation: Central Nervous System Agents potassium chloride ER 10 mEq tablet,exte nded release 11-18 00:00: 00 Yes [id number] SUPPLEMENT 1 tablet TWICE DAILY 1 tablet TWICE DAILY (route: oral) Med Classific ation: Electroly te Balance-N utritiona l Products Vitamin C 500 mg tablet 11-18 00:00: 00 Yes [id number] SUPPLEMENT 1 tablet ONCE DAILY 1 tablet ONCE DAILY (route: oral) Med Classific ation: Electroly te Balance-N utritiona l Products Vitamin D3 50 mcg (2,000 unit) tablet 11-18 00:00: 00 Yes [id number] SUPPLEMENT 1 tablet ONCE DAILY 1 tablet ONCE DAILY (route: oral) Med Classific ation: Electroly te Balance-N utritiona l Products zinc gluconate 50 mg tablet 11-18 00:00: 00 Yes [id number] SUPPLEMENT 1 tablet ONCE DAILY 1 tablet ONCE DAILY (route: oral) Med Classific ation: Electroly te Balance-N utritiona l Products alendronate 70 mg tablet 12-22 00:00: 00 Yes [id number] BONE HEALTH 1 tablet WEEKLY 1 tablet [...] SIGNS/SYMPTOMS TO REPORT.] Future Scheduled Test [facility] TIFYING PHYSICIAN, ASSOCIATED PHYSICIAN, NPP OR [...] WILL BE ESTABLISHED THAT MEETS ALL PATIENT'S SNF NEEDS AND COUNTER SIGNED BY PHYSICIAN. Goal [...] End Date/Time Encounter Type Admission Type Attending [facility] Department Encounter ID Discharge Date Discharge Status Discharge Condition Discharge Reason Percent Goals Met 2023-11-19 00:00:00 2024-01-16 00:00:00 Outpatient ALBINA GALLEGOS [facility] [id number] 2510-07-26 00:00:00 DISCHARGE TO HOME OR SELF CARE MINIMUM ASSIST WITH TRANSFER/A MBULATION/ ADLS GOALS MET 91.67
--- OUTSIDE RECORDS SUMMARY | 2024-06-09 05:24 | XMS_ITS | Encounter Summary ---
Author Organization [facility] Address [address] [place] [address] Care Team Providers Care Helpdesk Administrator Name Role Phone Pierre Acuna Primary Care Provider [phone] Encounter Details Date Type Department Care Team [...] and heating? Not hard at all 11/03/2023 [facility] [place] [facility] - Occupational Stress [...] on filedocumented in this encounter Care Teams Helpdesk Administrator Relationship Specialty Start Date End Date Pierre Acuna DO [address] [place] [address] PCP - General Family Medicine 11/02/23 documented as of this encounter
--- OUTSIDE RECORDS SUMMARY | 2024-06-09 05:25 | XMS_ITS | Encounter Summary ---
Author Organization [facility] Address [address] [place] [address]. [place] [address] [place] [address] Care Team Providers Care Metal Ceiling Hanger Name Role Phone Unavailable Primary Care Provider Unavailabl e Encounter Details Date Type Department Care Team (Late st Contact Info) Description 01/16/2010 Abstract [facility] [address] [place] [address] Keith Lopez MD Social History Tobacco Use Types Packs/Day Years Used Date Smoking Tobacco: Never Assessed Comments Unknown Sex and Gender Information Value Date Recorded Sex Assigned at Not on file Legal Sex Female 5:57 PM CLIPPER MACHINE Gender Identity Not on file Sexual Orientation Not on file documented as of this encounter Plan of Treatment Not on file documented as of this encounter Visit Diagnoses Diagnosis Degeneration of lumbar or lumbosacral intervertebral disc documented in this encounter
--- OUTSIDE RECORDS SUMMARY | 2024-06-09 05:25 | XMS_ITS | Encounter Summary ---
Author Organization [facility] Address [address] [place] [address]. [place] [address] [place] [address] Care Team Providers Care Survey Worker Name Role Phone Unavailable Primary Care Provider Unavailabl e Encounter Details Date Type Department Care Team (Late st Contact Info) Description 03/17/2007 Abstract [facility] [address] [place] [address] Keith Lopez MD Social History Tobacco Use Types Packs/Day Years Used Date Smoking Tobacco: Never Assessed Comments Unknown Sex and Gender Information Value Date Recorded Sex Assigned at Not on file Legal Sex Female 5:57 PM MAORI PHYSIOTHERAPIST Gender Identity Not on file Sexual Orientation Not on file documented as of this encounter Plan of Treatment Not on file documented as of this encounter Visit Diagnoses Not on filedocumented in this encounter
--- OUTSIDE RECORDS SUMMARY | 2024-06-09 05:25 | XMS_ITS | Encounter Summary ---
Author Organization [facility] Address [address] [place] [address]. [place] [address] [place] [address] Care Team Providers Care Agency Operator Name Role Phone Unavailable Primary Care Provider Unavailabl e Encounter Details Date Type Department Care Team (Late st Contact Info) Description 10/16/1999 Abstract [facility] [address] [place] [address] , Generic Conversion, Social History Tobacco Use Types Packs/Day Years Used Date Smoking Tobacco: Never Assessed Comments Unknown Sex and Gender Information Value Date Recorded Sex Assigned at Not on file Legal Sex Female 5:57 PM BAND CUTTING MACHINE OPERATOR Gender Identity Not on file Sexual Orientation Not on file documented as of this encounter Plan of Treatment Not on file documented as of this encounter Visit Diagnoses Not on filedocumented in this encounter
--- OUTSIDE RECORDS SUMMARY | 2024-06-09 05:25 | XMS_ITS | Encounter Summary ---
Author Organization [facility] Address [address] [place] [address]. [place] [address] [place] [address] Care Team Providers Care Steam Drier Tender Name Role Phone Unavailable Primary Care Provider Unavailabl e Encounter Details Date Type Department Care Team (Late st Contact Info) Description 09/10/2004 Abstract [facility] [address] [place] [address] Keith Lopez MD Social History Tobacco Use Types Packs/Day Years Used Date Smoking Tobacco: Never Assessed Comments Unknown Sex and Gender Information Value Date Recorded Sex Assigned at Not on file Legal Sex Female 5:57 PM EPIC AMBULATORY ANALYSTS Gender Identity Not on file Sexual Orientation Not on file documented as of this encounter Plan of Treatment Not on file documented as of this encounter Visit Diagnoses Not on filedocumented in this encounter
--- OUTSIDE RECORDS SUMMARY | 2024-06-09 05:25 | XMS_ITS | Encounter Summary ---
Author Organization [facility] Address [address] [place] [address]. [place] [address] [place] [address] Care Team Providers Care Tape Keller Operator Name Role Phone Unavailable Primary Care Provider Unavailabl e Encounter Details Date Type Department Care Team (Late st Contact Info) Description 02/15/2002 Abstract [facility] [address] [place] [address] , Generic Conversion, Social History Tobacco Use Types Packs/Day Years Used Date Smoking Tobacco: Never Assessed Comments Unknown Sex and Gender Information Value Date Recorded Sex Assigned at Not on file Legal Sex Female 5:57 PM RESIDENTIAL CONSTRUCTION INSTRUCTOR Gender Identity Not on file Sexual Orientation Not on file documented as of this encounter Plan of Treatment Not on file documented as of this encounter Visit Diagnoses Not on filedocumented in this encounter
--- OUTSIDE RECORDS SUMMARY | 2024-06-09 05:25 | XMS_ITS | Encounter Summary ---
Author Organization [facility] Address [address] [place] [address]. [place] [address] [place] [address] Care Team Providers Care Turpentine Distiller Name Role Phone Pierre Acuna DO Unavailable [phone] Dick Wu MD Unavailable Unavailabl e Pierre Acuna DO Primary Care Provider [phone] Reason for Visit * Reason Onset Date Comments Appointment Request 01/19/2021 recall due Encounter Details Date Type Department Care Team ([facility] Contact Info) Description 01/19/2021 Telephone [facility] [address] [place] [id number] Dick Wu MD Appointment Request (recall due ) Social History Tobacco Use Types Packs/Day Years Used Date Smoking Tobacco: Never Smokeless Tobacco: Never Comments Unknown Sex and Gender Information Value Date Recorded Sex Assigned at Not on file Legal Sex Female 5:57 PM COMMUNITY WORKER Gender Identity Not on file Sexual [...] on filedocumented in this encounter Care Teams Turpentine Distiller Relationship Specialty Start Date End Date Pierre Acuna DO [address] [place] [address] PCP - General FAMILY PRACTICE 01/03/20 Pierre Acuna [place] [address] FAMILY PRACTICE 12/03/19 Dick Wu MD [address] [place] [address] Consulting Physician CARDIOVASCULAR DISEASE 12/03/19 documented as of this encounter
--- OUTSIDE RECORDS SUMMARY | 2024-06-09 05:25 | XMS_ITS | Encounter Summary ---
Author Organization [facility] Address [address] [place] [address]. [place] [address] [place] [address] Care Team Providers Care Purchasing Coordinator Name Role Phone Tomer Linn MD Primary Care Provider [phone] Pierre Acuna DO Unavailable Dick Wu MD Unavailable Unavailabl e Encounter Details Date Type Department Care Team (Late st Contact Info) Description 12/06/2019 Abstract [facility] [address] [place] [phone] Abstract, Doc [facility] Social History Tobacco Use Types Packs/Day Years Used Date Smoking Tobacco: Never Comments Unknown Sex and Gender Information Value Date Recorded Sex Assigned at Not on file Legal Sex Female 5: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
--- OUTSIDE RECORDS SUMMARY | 2024-06-09 05:25 | XMS_ITS | Encounter Summary ---
Author Organization [facility] Address [address] [place] [address]. [place] [address] [place] [address] Care Team Providers Care Luggage Repairer Name Role Phone Unavailable Primary Care Provider Unavailabl e Encounter Details Date Type Department Care Team (Late st Contact Info) Description 10/24/[address] 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
--- OUTSIDE RECORDS SUMMARY | 2024-06-09 05:25 | XMS_ITS | Encounter Summary ---
Author Organization [facility] Address [address] [place] [address]. [place] [address] [place] [address] Care Team Providers Care Housing Management Officer Name Role Phone Unavailable Primary Care Provider Unavailabl e Encounter Details Date Type Department Care Team (Late st Contact Info) Description 04/26/2004 Abstract [facility] [address] [place] [address] Keith Lopez MD Social History Tobacco Use Types Packs/Day Years Used Date Smoking Tobacco: Never Assessed Comments Unknown Sex and Gender Information Value Date Recorded Sex Assigned at Not on file Legal Sex Female 5:57 PM EVENT STAFF Gender Identity Not on file Sexual Orientation Not on file documented as of this encounter Plan of Treatment Not on file documented as of this encounter Visit Diagnoses Not on filedocumented in this encounter
--- OUTSIDE RECORDS SUMMARY | 2024-06-09 05:25 | XMS_ITS | Encounter Summary ---
Author Organization [facility] Address [address] [place] [address]. [place] [address] [place] [address] Care Team Providers Care Photograph Editor Name Role Phone Unavailable Primary Care Provider Unavailabl e Encounter Details Date Type Department Care Team (Late st Contact Info) Description 12/07/2002 Abstract [facility] [address] [place] [address] , Generic Conversion, Social History Tobacco Use Types Packs/Day Years Used Date Smoking Tobacco: Never Assessed Comments Unknown Sex and Gender Information Value Date Recorded Sex Assigned at Not on file Legal Sex Female 5:57 PM AGENT LICENSING CLERK Gender Identity Not on file Sexual Orientation Not on file documented as of this encounter Plan of Treatment Not on file documented as of this encounter Visit Diagnoses Not on filedocumented in this encounter
--- OUTSIDE RECORDS SUMMARY | 2024-06-09 05:25 | XMS_ITS | Encounter Summary ---
Author Organization [facility] Address [facility] [facility] [place] [address] [place] [address] Care Team Providers Care Casting Agent Name Role Phone Pierre Acuna DO Unavailable [phone] Dick Wu MD Unavailable Unavailabl e Pierre Acuna DO Primary Care Provider [phone] Encounter Details Date Type Department Care Team (Latest Contact Info) Description 01/03/2020 Travel Social History Tobacco Use Types Packs/Day Years Used Date Smoking Tobacco: Never Comments Unknown Sex and Gender Information Value Date Recorded Sex Assigned at Not on file Legal Sex Female 5:57 PM ADOPTION AGENT Gender Identity Not on file Sexual [...] on filedocumented in this encounter Care Teams Casting Agent Relationship Specialty Start Date End Date Pierre Acuna DO [address] [place] [address] PCP - General FAMILY PRACTICE 01/03/20 Pierre Acuna DO [address] [place] [address] FAMILY PRACTICE 12/03/19 Dick Wu MD [address] [place] [address] Consulting Physician CARDIOVASCULAR DISEASE 12/03/19 documented as of this encounter
--- OUTSIDE RECORDS SUMMARY | 2024-06-09 05:25 | XMS_ITS | Encounter Summary ---
Author Organization [facility] Address [address] [place] [address]. [place] [address] [place] [address] Care Team Providers Care Warehouse Associate Driver Name Role Phone Pierre Acuna DO Unavailable [phone] Dick Wu MD Unavailable Unavailabl e Pierre Acuna DO Primary Care Provider [phone] Reason for Visit * Reason Onset Date Comments Reschedule 02/14/2022 Encounter Details Date Type Department Care Team ([facility] st Contact Info) Description 02/14/2022 [facility]phone [facility] [address] [place] [address] Vickie Dalton, ZENA, FORGE PRESS OPERATOR-C [address] [facility] [address] [place] [address] Reschedule Social History Tobacco Use Types Packs/Day Years Used Date Smoking Tobacco: Never Smokeless Tobacco: Never Comments Unknown Sex and Gender Information Value Date Recorded Sex Assigned at Not on file Legal Sex Female 5:57 PM 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
--- OUTSIDE RECORDS SUMMARY | 2024-06-09 05:25 | XMS_ITS | Encounter Summary ---
Author Organization [facility] Address [address] [place] [address]. [place] [address] [place] [address] Care Team Providers Care Quality Assurance Lab Technician Name Role Phone Unavailable Primary Care Provider Unavailabl e Encounter Details Date Type Department Care Team (Late st Contact Info) Description 08/14/2004 Abstract [facility] [address] [place] [address] Keith Lopez MD Social History Tobacco Use Types Packs/Day Years Used Date Smoking Tobacco: Never Assessed Comments Unknown Sex and Gender Information Value Date Recorded Sex Assigned at Not on file Legal Sex Female 5:57 PM STOCK MOVER Gender Identity Not on file Sexual Orientation Not on file documented as of this encounter Plan of Treatment Not on file documented as of this encounter Visit Diagnoses Not on filedocumented in this encounter
--- OUTSIDE RECORDS SUMMARY | 2024-06-09 05:25 | XMS_ITS | Encounter Summary ---
Author Organization [facility] Address [address] [place] [address]. [place] [address] [place] [address] Care Team Providers Care Nurse Charge Rn Name Role Phone Pierre Acuna DO Unavailable [phone] Dick Wu MD Unavailable Unavailabl e Pierre Acuna DO Primary Care Provider [phone] Encounter Details Date Type Department Care Team (Late st Contact Info) Description 02/21/2022 Orders Only [facility] [address] [place] [address] Dick Wu MD Social History Tobacco Use Types Packs/Day Years Used Date Smoking Tobacco: Never Smokeless Tobacco: Never Comments Unknown Sex and Gender Information Value Date Recorded Sex Assigned at Not on file Legal Sex Female 5:57 PM MULE TENDER Gender Identity Not on file Sexual Orientation [...] hypertension documented in this encounter Care Teams Nurse Charge Rn Relationship Specialty Start Date End Date Pierre Acuna DO [address] [place] [address] PCP - General FAMILY PRACTICE 01/03/20 Pierre Acuna DO [address] [place] [address] FAMILY PRACTICE 12/03/19 Dick Wu MD [address] [place] [address] Consulting Physician CARDIOVASCULAR DISEASE 12/03/19 documented as of this encounter
--- OUTSIDE RECORDS SUMMARY | 2024-06-09 05:25 | XMS_ITS | Encounter Summary ---
Author Organization [facility] Address [address] [place] [address]. [place] [address] [place] [address] Care Team Providers Care Quick Service Technician Name Role Phone Pierre Acuna DO Unavailable [phone] Dick Wu MD Unavailable Unavailabl e Pierre Acuna DO Primary Care Provider [phone] Reason for Visit * Reason Onset Date Comments Appointment Request 05/20/2023 Encounter Details Date Type Department Care Team (Late st Contact Info) Description 05/20/2023 Telephone [facility] ld [address] [place] [phone] Dick Wu MD Appointment Request Social History Tobacco Use Types Packs/Day Years Used Date Smoking Tobacco: Never Smokeless Tobacco: Never Comments Unknown Sex and Gender Information Value Date Recorded Sex Assigned at Not on file Legal Sex Female 5:57 PM CURING FINISHER Gender Identity Not on file Sexual Orientation Not on file documented as of this encounter Progress Notes * Vickie Dalton APRN, GINNER-C - 05/20/2023 3:39 PM CST Spoke to Promise. Scheduled for 1:00 pm tomorrow. She v/u. NG FINISHER * Becca Gray - 05/20/2023 3:12 PM CST VOICEMAIL Date: 05/20/2023 Time: 2:14 Who is calling: Promise Sri Phone number: [phone] Message: She would like to schedule an appointment with Bryce Biswas handled sent to nurse NG FINISHER documented in this encounter Plan of Treatment Not on file documented as of this encounter Visit Diagnoses Not on filedocumented in this encounter Care Teams Quick Service Technician Relationship Specialty Start Date End Date Pierre Acuna DO [address] [place] [address] PCP - General FAMILY PRACTICE 01/03/20 Pierre Acuna DO [address] [place] [address] FAMILY PRACTICE 12/03/19 Dick Wu MD [address] [place] [address] Consulting Physician CARDIOVASCULAR DISEASE 12/03/19 documented as of this encounter
--- OUTSIDE RECORDS SUMMARY | 2024-06-09 05:25 | XMS_ITS | Encounter Summary ---
Author Organization [facility] Address [address] [place] [address]. [place] [address] [place] [address] Care Team Providers Care Store Clerk Name Role Phone Unavailable Primary Care Provider Unavailabl e Encounter Details Date Type Department Care Team (Late st Contact Info) Description 03/18/2006 Abstract [facility] [address] [place] [address] Keith Lopez MD Social History Tobacco Use Types Packs/Day Years Used Date Smoking Tobacco: Never Assessed Comments Unknown Sex and Gender Information Value Date Recorded Sex Assigned at Not on file Legal Sex Female 5:57 PM TECHNICAL TRAINING COORDINATOR Gender Identity Not on file Sexual Orientation Not on file documented as of this encounter Plan of Treatment Not on file documented as of this encounter Visit Diagnoses Not on filedocumented in this encounter
--- OUTSIDE RECORDS SUMMARY | 2024-06-09 05:25 | XMS_ITS | Encounter Summary ---
Author Organization [facility] Address [address] [place] [address]. [place] [address] [place] [address] Care Team Providers Care Manager Agency Name Role Phone Tomer Linn MD Primary Care Provider [phone] Pierre Acuna DO Unavailable [phone] Dick Wu MD Unavailable Unavailabl e Pierre Acuna DO Primary Care Provider [phone] Reason for Visit * Reason Comments CT (SCAN) Encounter Details Date Type Department Care Team (Late st Contact Info) Description 12/27/2019 Scan [facility] [address] [place] [phone] Scanned, Documents CT (SCAN) Social History Tobacco Use Types Packs/Day Years Used Date Smoking Tobacco: Never Comments Unknown Sex and Gender Information Value Date Recorded Sex Assigned at Not on file Legal Sex Female 5:57 PM BLENDER 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
--- OUTSIDE RECORDS SUMMARY | 2024-06-09 05:25 | XMS_ITS | Encounter Summary ---
Author Organization [facility] Address [address] [place] [address]. [place] [address] [place] [address] Care Team Providers Care Locomotive Oiler Name Role Phone Unavailable Primary Care Provider Unavailabl e Encounter Details Date Type Department Care Team (Late st Contact Info) Description 02/12/2000 Abstract [facility] [address] [place] [address] , Generic Conversion, Social History Tobacco Use Types Packs/Day Years Used Date Smoking Tobacco: Never Assessed Comments Unknown Sex and Gender Information Value Date Recorded Sex Assigned at Not on file Legal Sex Female 5:57 PM INSTRUCTOR PILOT Gender Identity Not on file Sexual Orientation Not on file documented as of this encounter Plan of Treatment Not on file documented as of this encounter Visit Diagnoses Not on filedocumented in this encounter
--- OUTSIDE RECORDS SUMMARY | 2024-06-09 05:25 | XMS_ITS | Encounter Summary ---
Author Organization [facility] Address [address] [place] [address]. [place] [address] [place] [address] Care Team Providers Care Mobile Lounge Driver Or Operator Name Role Phone Unavailable Primary Care Provider Unavailabl e Encounter Details Date Type Department Care Team (Late st Contact Info) Description 04/18/[address] [facility] [address] [place] [address] , Renate Newberry MD Social History Tobacco Use Types Packs/Day Years Used Date Smoking Tobacco: Never Assessed Comments Unknown Sex and Gender Information Value Date Recorded Sex Assigned at Not on file Legal Sex Female 5:57 PM VOCATIONAL TRAINING TEACHER Gender Identity Not on file Sexual Orientation Not on file documented as of this encounter Plan of Treatment Not on file documented as of this encounter Visit Diagnoses Not on filedocumented in this encounter
--- OUTSIDE RECORDS SUMMARY | 2024-06-09 05:25 | XMS_ITS | Encounter Summary ---
Author Organization [facility] Address [address] [place] [address]. [place] [address] [place] [address] Care Team Providers Care Brand Analyst Name Role Phone Unavailable Primary Care Provider Unavailabl e Encounter Details Date Type Department Care Team (Late st Contact Info) Description 12/18/2004 Abstract [facility] [address] [place] [address] Keith Lopez MD Social History Tobacco Use Types Packs/Day Years Used Date Smoking Tobacco: Never Assessed Comments Unknown Sex and Gender Information Value Date Recorded Sex Assigned at Not on file Legal Sex Female 5:57 PM AIR CONDITIONING MECHANIC INDUSTRIAL Gender Identity Not on file Sexual Orientation Not on file documented as of this encounter Plan of Treatment Not on file documented as of this encounter Visit Diagnoses Not on filedocumented in this encounter
--- OUTSIDE RECORDS SUMMARY | 2024-06-09 05:25 | XMS_ITS | Encounter Summary ---
Author Organization [facility] Address [address] [place] [address]. [place] [address] [place] [address] Care Team Providers Care Flight Hostess Name Role Phone Unavailable Primary Care Provider Unavailabl e Encounter Details Date Type Department Care Team (Late st Contact Info) Description 11/11/2000 Abstract [facility] [address] [place] [address] , Generic Conversion, Social History Tobacco Use Types Packs/Day Years Used Date Smoking Tobacco: Never Assessed Comments Unknown Sex and Gender Information Value Date Recorded Sex Assigned at Not on file Legal Sex Female 5:57 PM SALES & SERVICE ASSOCIATE Gender Identity Not on file Sexual Orientation Not on file documented as of this encounter Plan of Treatment Not on file documented as of this encounter Visit Diagnoses Not on filedocumented in this encounter
--- OUTSIDE RECORDS SUMMARY | 2024-06-09 05:25 | XMS_ITS | Encounter Summary ---
Author Organization [facility] Address [address] [place] [address]. [place] [address] [place] [address] Care Team Providers Care Mainframe Applications Developer Name Role Phone Pierre Florence DO Unavailable [phone] Dick Wu MD Unavailable Unavailabl e Pierre Florence DO Primary Care Provider [phone] Reason for Visit * Reason Comments Consult Leg swelling Encounter Details Date Type Department Care Team (Latest Contact Info) Description 01/03/2020 1:30 PM CDT Office Visit [facility] AT [address] [place] [phone] Dick Wu MD Consult (Leg swelling) Social History Tobacco Use Types Packs/Day Years Used Date Smoking Tobacco: Never Smokeless Tobacco: Never Comments Unknown Sex and Gender Information Value Date Recorded Sex Assigned at Not on file Legal Sex Female 5:57 PM GATE PERSON Gender Identity Not on file Sexual Orientation [...] days 3. Check CT scan of abdomen ([place]) 4. RTC 1 year 5. Lose wt [...] hypertension documented in this encounter Care Teams Mainframe Applications Developer Relationship Specialty Start Date End Date Pierre Florence DO [address] [place] [address] PCP - General FAMILY PRACTICE 01/03/20 Pierre [place] DO [address] [place] [address] FAMILY PRACTICE 12/03/19 Dick Wu MD [address] [place] [address] Consulting Physician CARDIOVASCULAR DISEASE 12/03/19 documented as of this encounter
--- OUTSIDE RECORDS SUMMARY | 2024-06-09 05:25 | XMS_ITS | Encounter Summary ---
Author Organization [facility] Address [address] [place] [address]. 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
--- OUTSIDE RECORDS SUMMARY | 2024-06-09 05:25 | XMS_ITS | Encounter Summary ---
Author Organization [facility] Address [address] [place] [address]. [place] [address] [place] [address] Care Team Providers Care Linux System Admin Name Role Phone Unavailable Primary Care Provider Unavailabl e Encounter Details Date Type Department Care Team (Late st Contact Info) Description 08/31/2007 Abstract [facility] [address] [place] [address] Keith Lopez MD Social History Tobacco Use Types Packs/Day Years Used Date Smoking Tobacco: Never Assessed Comments Unknown Sex and Gender Information Value Date Recorded Sex Assigned at Not on file Legal Sex Female 5:57 PM LOG HOOKER Gender Identity Not on file Sexual Orientation Not on file documented as of this encounter Plan of Treatment Not on file documented as of this encounter Visit Diagnoses Not on filedocumented in this encounter
--- OUTSIDE RECORDS SUMMARY | 2024-06-09 05:25 | XMS_ITS | Encounter Summary ---
Author Organization [facility] Address [address] [place] [address]. [place] [address] [place] [address] Care Team Providers Care Supervisor Broadloom Name Role Phone Unavailable Primary Care Provider Unavailabl e Encounter Details Date Type Department Care Team (Late st Contact Info) Description 04/04/2007 Abstract [facility] [address] [place] [address] Keith Lopez MD Social History Tobacco Use Types Packs/Day Years Used Date Smoking Tobacco: Never Assessed Comments Unknown Sex and Gender Information Value Date Recorded Sex Assigned at Not on file Legal Sex Female 5:57 PM MARKETING REGIONAL CONSULTANT Gender Identity Not on file Sexual Orientation Not on file documented as of this encounter Plan of Treatment Not on file documented as of this encounter Visit Diagnoses Not on filedocumented in this encounter
--- OUTSIDE RECORDS SUMMARY | 2024-06-09 05:25 | XMS_ITS | Encounter Summary ---
Author Organization [facility] Address [address] [place] [address]. [place] [address] [place] [address] Care Team Providers Care Computer Specialist Name Role Phone Unavailable Primary Care Provider Unavailabl e Encounter Details Date Type Department Care Team (Late st Contact Info) Description 08/15/2009 Abstract [facility] [address] [place] [address] Keith Lopez MD Social History Tobacco Use Types Packs/Day Years Used Date Smoking Tobacco: Never Assessed Comments Unknown Sex and Gender Information Value Date Recorded Sex Assigned at Not on file Legal Sex Female 5:57 PM BLADE BENDER FURNACE TENDER Gender Identity Not on file Sexual Orientation Not on file documented as of this encounter Plan of Treatment Not on file documented as of this encounter Visit Diagnoses Diagnosis Osteoarthrosis Osteoarthrosis, unspecified whether generalized or localized, unspecified site documented in this encounter
--- OUTSIDE RECORDS SUMMARY | 2024-06-09 05:25 | XMS_ITS | Encounter Summary ---
Author Organization [facility] Address [address] [place] [address]. [place] [address] [place] [address] Care Team Providers Care Business Advisor Name Role Phone Kalpana Pierre DO Unavailable [phone] Dariela Wu MD Unavailable Unavailabl e Pierre Acuna DO Primary Care Provider [phone] Encounter Details Date Type Department Care Team (Late st Contact Info) Description 12/31/2021 Orders Only [facility] [address] [place] [address] Dariela Wu MD Social History Tobacco Use Types Packs/Day Years Used Date Smoking Tobacco: Never Smokeless Tobacco: Never Comments Unknown Sex and Gender Information Value Date Recorded Sex Assigned at Not on file Legal Sex Female 5:57 PM 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 [facility] ?[address], [place] ??[address] ? Test Date: ?2022-02-28 Pat Name: ? PROMISE FIERRO ? Department: ?? 105 ? Room: ? Gender: ? Female ? Vice President Of Advertising: ?? ajm : ?1940 ? Requested By: DARIELA WU Order Number: [id number] ?Reading MD: ?? Dariela Wu ? Measurements Intervals ?[place] ? Rate: ? 67 ? P: ? IN: ? 0 ?QRS: ?25 QRSD: ? 86 ? T: ?10 QT: ? 397 ? QTc: ?421 ? Interpretive Statements ATRIAL FIBRILLATION ABNORMAL RHYTHM ECG Procedure Note Dariela Wu MD - 02/28/2022 [facility], [facility] [address] [place] [address] Test Date: 2022-02-28 Pat Name: PROMISE FIERRO Department: 105 Room: Gender: Female Vice President Of Advertising: ervin : 1940 Requested By: DARIELA WU Order Number: [id number] Reading MD: Dariela Wu Measurements Intervals [place] Rate: 67 P: IN: 0 QRS: 25 QRSD: 86 T: 10 [...] type documented in this encounter Care Teams Business Advisor Relationship Specialty Start Date End Date Pierre Acuna DO [address] [place] [address] PCP - General FAMILY PRACTICE 01/03/20 Pierre Acuna DO [address] [place] [address] FAMILY PRACTICE 12/03/19 Dariela Wu MD [address] [place] [address] Consulting Physician CARDIOVASCULAR DISEASE 12/03/19 documented as of this encounter
--- OUTSIDE RECORDS SUMMARY | 2024-06-09 05:25 | XMS_ITS | Encounter Summary ---
Author Organization [facility] Address [address] [place] [address]. [place] [address] [place] [address] Care Team Providers Care Oil Heater Operator Name Role Phone Pierre Florence DO Unavailable [phone] Dariela Wu MD Unavailable Unavailabl e Pierre Florence DO Primary Care Provider [phone] Reason for Visit * Reason Comments Follow Up Edema Encounter Details Date Type Department Care Team ([facility] st Contact Info) Description 02/28/2022 11:00 AM CDT Office Visit [facility] [address] [place] [phone] Dariela Wu MD Vogler, Shauna B, ZENA, FIRE EXTINGUISHER REPAIRER INSPECTOR-C [address] [facility] [address] [place] [phone] Follow Up; Edema Social History Tobacco Use Types Packs/Day Years Used Date Smoking Tobacco: Never Smokeless Tobacco: Never Comments Unknown Sex and Gender Information Value Date Recorded Sex Assigned at Not on file Legal Sex Female 5:57 PM OPTICS TEST 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 2. Hypertension. Her blood pressure [...] CARDIOVASCULAR - 02/28/2022 3:31 PM CDT ? [facility] ?[address] [place], [place] ??[address] ? Test Date: ?2022-02-28 Pat Name: ? PROMISE SMIDDY ? Department: ?? 105 ? Room: ? Gender: ? Female ? Finance Mgr: ?? ajm : ?1940 ? Requested By: DARIELA WU Order Number: [id number] ?Reading MD: ?? Dariela Wu ? Measurements Intervals ?[place] ? Rate: ? 67 ? P: ? MA: ? 0 ?QRS: ?25 QRSD: ? 86 ? T: ?10 QT: ? 397 ? QTc: ?421 ? Interpretive Statements ATRIAL FIBRILLATION ABNORMAL RHYTHM ECG Procedure Note Dariela Wu MD - 02/28/2022 [facility] [address] [place] [address] Test Date: 2022-02-28 Pat Name: PROMISE CHILDS Department: 105 Room: Gender: Female Finance Mgr: ervin : 1940 Requested By: DARIELA WU Order Number: [id number] Reading MD: Dariela Wu Measurements Intervals [place] Rate: 67 P: MA: 0 QRS: 25 QRSD: 86 T: 10 QT: 397 QTc: 421 Interpretive Statements ATRIAL FIBRILLATION ABNORMAL RHYTHM ECG Dariela Wu MD PROCEDURES-ORDERABLE NO CARMEN RGE Final Result [facility] documented in this encounter Visit Diagnoses Diagnosis Localized edema- Primary Edema Essential hypertension Unspecified essential hypertension History of DVT (deep vein thrombosis) Personal history of venous thrombosis and embolism Hyperlipidemia, unspecified hyperlipidemia type documented in this encounter Care Teams Oil Heater Operator Relationship Specialty Start Date End Date Pierre Florence DO [address] [place] [address] PCP - General FAMILY PRACTICE 01/03/20 Pierre Florence DO [address] [place] [address] FAMILY PRACTICE 12/03/19 Dariela Wu MD [address] [place] [address] Consulting Physician CARDIOVASCULAR DISEASE 12/03/19 documented as of this encounter
--- OUTSIDE RECORDS SUMMARY | 2024-06-09 05:25 | XMS_ITS | Encounter Summary ---
Author Organization [facility] Address [address] [place] [address]. [place] [address] [place] [address] Care Team Providers Care Battery Mechanic Name Role Phone Unavailable Primary Care Provider Unavailabl e Encounter Details Date Type Department Care Team (Late st Contact Info) Description 04/06/2007 Abstract [facility] [address] [place] [address] Keith Lopez MD Social History Tobacco Use Types Packs/Day Years Used Date Smoking Tobacco: Never Assessed Comments Unknown Sex and Gender Information Value Date Recorded Sex Assigned at Not on file Legal Sex Female 5:57 PM HUMAN RESOURCES SERVICES SPECIALIST Gender Identity Not on file Sexual Orientation Not on file documented as of this encounter Plan of Treatment Not on file documented as of this encounter Visit Diagnoses Not on filedocumented in this encounter
--- OUTSIDE RECORDS SUMMARY | 2024-06-09 05:25 | XMS_ITS | Encounter Summary ---
Author Organization [facility] Address [address] [place] [address]. [place] [address] [place] [address] Care Team Providers Care Ocean Export Agent Name Role Phone Unavailable Primary Care Provider Unavailabl e Encounter Details Date Type Department Care Team (Late st Contact Info) Description 2003 Abstract [facility] [address] [place] [address] Keith Lopez MD Social History Tobacco Use Types Packs/Day Years Used Date Smoking Tobacco: Never Assessed Comments Unknown Sex and Gender Information Value Date Recorded Sex Assigned at Not on file Legal Sex Female 5:57 PM CARGO VESSEL STEWARDESS Gender Identity Not on file Sexual Orientation Not on file documented as of this encounter Plan of Treatment Not on file documented as of this encounter Visit Diagnoses Not on filedocumented in this encounter
--- OUTSIDE RECORDS SUMMARY | 2024-06-09 05:25 | XMS_ITS | Encounter Summary ---
Author Organization [facility] Address [address] [place] [address]. [place] [address] [place] [address] Care Team Providers Care Civil Project Engineer Name Role Phone Unavailable Primary Care Provider Unavailabl e Encounter Details Date Type Department Care Team (Late st Contact Info) Description 08/21/2006 Abstract [facility] [address] [place] [address] Keith Lopez MD Social History Tobacco Use Types Packs/Day Years Used Date Smoking Tobacco: Never Assessed Comments Unknown Sex and Gender Information Value Date Recorded Sex Assigned at Not on file Legal Sex Female 5:57 PM PUBLIC SPEAKER Gender Identity Not on file Sexual Orientation Not on file documented as of this encounter Plan of Treatment Not on file documented as of this encounter Visit Diagnoses Not on filedocumented in this encounter
--- OUTSIDE RECORDS SUMMARY | 2024-06-09 05:25 | XMS_ITS | Clinical Summary ---
Author Organization [facility] Address [facility] [address] [place] [address] Care Team Providers Care Business Operations Coordinator Name Role Phone CarsonPierre quiñones Unavailable [phone] Pierre Acuna DO Primary Care Provider [phone] Krys Jules MD Unavailable [phone] Hayley Pan ANP- Unavailable [phone] Allergies Active Allergy Reactions Criticality Noted Date [...] of DVT (deep vein thrombosis) Pulmonary embolism ([facility]) Other hyperlipidemia Resolved Problems Problem Noted Date Diagnosed Date Resolved Date Generalized edema 02/01/2020 06/29/2023 DVT (deep venous thrombosis) ([facility]) 06/29/2023 Family History Medical History Relation Comments [...] on file Legal Sex Female 5:57 PM NETWORK ENGINEERING ADVISOR Gender Identity Not on file Sexual Orientation Not on file Last Filed Vital Signs Vital Sign Reading Time Taken Comments Blood Pressure 147/44 05/21/2023 1:00 PM NETWORK ENGINEERING ADVISOR Pulse 70 05/21/2023 1:00 PM NETWORK ENGINEERING ADVISOR Temperature 36.7 ??C (98 ??F) 01/03/2020 2:21 PM CDT Respiratory Rate 16 02/28/2022 11:13 AM CDT Oxygen Saturation 98% 05/21/2023 1:00 PM NETWORK ENGINEERING ADVISOR Inhaled Oxygen Concentration - - Weight 121 kg (266 lb 12.8 oz) 05/21/2023 1:00 P M NETWORK ENGINEERING ADVISOR Height 160 cm (5' 3 ) 05/21/2023 1:00 PM NETWORK ENGINEERING ADVISOR Body Mass Index 47.26 05/21/2023 1:00 PM NETWORK ENGINEERING ADVISOR Plan of Treatment Health Maintenance Due Date [...] age to complete this topic Insurance MEDICARE [facility] MEDICAID MEDICARE [employer] [facility] Care Teams Business Operations Coordinator Relationship Specialty Start Date End Date Pierre Acuna DO [address] [place] [address] PCP - General FAMILY PRACTICE 01/03/20 Pierre Acuna DO [address] [place] [address] FAMILY PRACTICE 12/03/19 Krys Jules MD [address] [place] [id number] INTERVENTIONAL CARDIOLOGY 10/15/23 Hayley Pan, HARDIK- [address] [place] [address] Nurse Practitioner NURSE PRACTITIONER ADULT HEALTH 10/15/23
--- OUTSIDE RECORDS SUMMARY | 2024-06-09 05:25 | XMS_ITS | Encounter Summary ---
Author Organization [facility] Address [address] [place] [address]. [place], [place] [address] [place] [address] Care Team Providers Care Diamond Sizer And Grader Name Role Phone Pierre Acuna DO Unavailable [phone] Dick Wu MD Unavailable Unavailabl e Pierre Acuna DO Primary Care Provider [phone] Encounter Details Date Type Department Care Team (Late st Contact Info) Description 01/20/2020 Orders Only [facility] AT [address] [place] [address] Ronda Rao LPN Social History Tobacco Use Types Packs/Day Years Used Date Smoking Tobacco: Never Smokeless Tobacco: Never Comments Unknown Sex and Gender Information Value Date Recorded Sex Assigned at Not on file Legal Sex Female 5:57 PM RESOURCE RECOVERY ENGINEER Gender Identity Not on file Sexual [...] hypertension documented in this encounter Care Teams Diamond Sizer And Grader Relationship Specialty Start Date End Date Pierre Acuna DO [facility] [place] [address] PCP - General FAMILY PRACTICE 01/03/20 Pierre Acuna DO [facility] [place] [address] FAMILY PRACTICE 12/03/19 Dick Wu MD [facility] [place] [address] Consulting Physician CARDIOVASCULAR DISEASE 12/03/19 documented as of this encounter
--- OUTSIDE RECORDS SUMMARY | 2024-06-09 05:25 | XMS_ITS | Encounter Summary ---
Author Organization [facility] Address [address] [place] [address]. [place] [address] [place] [address] Care Team Providers Care Clamp Truck Driver Name Role Phone Unavailable Primary Care Provider Unavailabl e Encounter Details Date Type Department Care Team (Late st Contact Info) Description 04/13/2004 Abstract [facility] [address] [place] [address] Keith Lopez MD Social History Tobacco Use Types Packs/Day Years Used Date Smoking Tobacco: Never Assessed Comments Unknown Sex and Gender Information Value Date Recorded Sex Assigned at Not on file Legal Sex Female 5:57 PM FUNERAL SERVICE APPRENTICE Gender Identity Not on file Sexual Orientation Not on file documented as of this encounter Plan of Treatment Not on file documented as of this encounter Visit Diagnoses Not on filedocumented in this encounter
--- OUTSIDE RECORDS SUMMARY | 2024-06-09 05:25 | XMS_ITS | Encounter Summary ---
Author Organization [facility] Address [address] [place] [address]. [place] [address] [place] [address] Care Team Providers Care Interactive Media Director Name Role Phone Unavailable Primary Care Provider Unavailabl e Encounter Details Date Type Department Care Team (Late st Contact Info) Description 10/12/2002 Abstract [facility] [address] [place] [address] , Generic Conversion, Social History Tobacco Use Types Packs/Day Years Used Date Smoking Tobacco: Never Assessed Comments Unknown Sex and Gender Information Value Date Recorded Sex Assigned at Not on file Legal Sex Female 5:57 PM FLASK FITTER Gender Identity Not on file Sexual Orientation Not on file documented as of this encounter Plan of Treatment Not on file documented as of this encounter Visit Diagnoses Not on filedocumented in this encounter
--- OUTSIDE RECORDS SUMMARY | 2024-06-09 05:25 | XMS_ITS | Encounter Summary ---
Author Organization [facility] Address [address] [place] [address]. [place] [address] [place] [address] Care Team Providers Care Processing Associate Name Role Phone Unavailable Primary Care Provider Unavailabl e Encounter Details Date Type Department Care Team (Late st Contact Info) Description 10/22/2007 Abstract [facility] [address] [place] [address] Jay Avalos MD [address] [place] [address] [id number] Social History Tobacco Use Types Packs/Day Years Used Date Smoking Tobacco: Never Assessed Comments Unknown Sex and Gender Information Value Date Recorded Sex Assigned at Not on file Legal Sex Female 5:57 PM MANUFACTURING INTERN Gender Identity Not on file Sexual Orientation Not on file documented as of this encounter Plan of Treatment Not on file documented as of this encounter Visit Diagnoses Not on filedocumented in this encounter
--- OUTSIDE RECORDS SUMMARY | 2024-06-09 05:25 | XMS_ITS | Encounter Summary ---
Author Organization [facility] Address [address] [place] [address]. [place] [address] [place] [address] Care Team Providers Care Wealth Management Advisor Name Role Phone Pierre Acuna DO Unavailable [phone] Dick Wu MD Unavailable Unavailabl e Pierre Acuna DO Primary Care Provider [phone] Encounter Details Date Type Department Care Team (Late st Contact Info) Description 01/20/2020 Orders Only [facility] AT [address] [place] [address] Yael Beck, RN Social History Tobacco Use Types Packs/Day Years Used Date Smoking Tobacco: Never Smokeless Tobacco: Never Comments Unknown Sex and Gender Information Value Date Recorded Sex Assigned at Not on file Legal Sex Female 5:57 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 Gender Identity Not on file [...] Final Resul t * TSH (01/14/2020) Pathologist [facility] TSH 1.63 01/14/2020 Dick Wu MD LABORATORY Final Resul t documented in this encounter Visit Diagnoses Diagnosis Hypertension Unspecified essential hypertension documented in this encounter Care Teams Wealth Management Advisor Relationship Specialty Start Date End Date Pierre Acuna DO [address] [place] [address] PCP - General FAMILY PRACTICE 01/03/20 Pierre Acuna DO [address] [place] [address] FAMILY PRACTICE 12/03/19 Dick Wu MD [address] [place] [address] Consulting Physician CARDIOVASCULAR DISEASE 12/03/19 documented as of this encounter
--- OUTSIDE RECORDS SUMMARY | 2024-06-09 05:25 | XMS_ITS | Encounter Summary ---
Author Organization [facility] Address [address] [place] [address]. [place] [address] [place] [address] Care Team Providers Care Petroleum Laboratory Technician Name Role Phone Unavailable Primary Care Provider Unavailabl e Encounter Details Date Type Department Care Team (Late st Contact Info) Description 05/28/[address] [facility] [address] [facility] [place] [address] Keith Lopez MD Social History Tobacco Use Types Packs/Day Years Used Date Smoking Tobacco: Never Assessed Comments Unknown Sex and Gender Information Value Date Recorded Sex Assigned at Not on file Legal Sex Female 5:57 PM AIRPLANE RENTAL CLERK Gender Identity Not on file Sexual Orientation Not on file documented as of this encounter Plan of Treatment Not on file documented as of this encounter Visit Diagnoses Not on filedocumented in this encounter
--- OUTSIDE RECORDS SUMMARY | 2024-06-09 05:25 | XMS_ITS | Encounter Summary ---
Author Organization [facility] Address [address] [place] [address]. [place], [place] [address] [place] [address] Care Team Providers Care Frontload Driver Name Role Phone Tomer Linn MD Primary Care Provider [phone] Pierre Acuna DO Unavailable [phone] Dick Wu MD Unavailable Unavailabl e Reason for Visit * Reason Comments Echo (SCAN) Encounter Details Date Type Department Care Team ([facility] [address] Contact Info) Description 11/26/2019 Scan [facility] [address] [place] [phone] Scanned, Documents Echo (SCAN) Social History Tobacco Use Types Packs/Day Years Used Date Smoking Tobacco: Never Assessed Comments Unknown Sex and Gender Information Value Date Recorded Sex Assigned at Not on file Legal Sex Female 5:57 PM RADIOLOGIST PHYSICIAN Gender Identity Not on file Sexual [...] on filedocumented in this encounter Care Teams Frontload Driver Relationship Specialty Start Date End Date Tomer Linn MD [address] [place] [address] PCP - General FAMILY PRACTICE 12/03/19 01/02/20 Pierre Acuna DO [address] [place] [address] FAMILY PRACTICE 12/03/19 Dick Wu MD [address] [place] [address] Consulting Physician CARDIOVASCULAR DISEASE 12/03/19 documented as of this encounter
--- OUTSIDE RECORDS SUMMARY | 2024-06-09 05:25 | XMS_ITS | Encounter Summary ---
Author Organization [facility] Address [address] [place] [address]. [place] [address] [place] [address] Care Team Providers Care Printing Services Coordinator Name Role Phone Unavailable Primary Care Provider Unavailabl e Encounter Details Date Type Department Care Team (Late st Contact Info) Description 08/19/2006 Abstract [facility] [address] [place] [address] Keith Lopez MD Social History Tobacco Use Types Packs/Day Years Used Date Smoking Tobacco: Never Assessed Comments Unknown Sex and Gender Information Value Date Recorded Sex Assigned at Not on file Legal Sex Female 5:57 PM MOLDER CLOSED MOLDS Gender Identity Not on file Sexual Orientation Not on file documented as of this encounter Plan of Treatment Not on file documented as of this encounter Visit Diagnoses Not on filedocumented in this encounter
--- OUTSIDE RECORDS SUMMARY | 2024-06-09 05:25 | XMS_ITS | Encounter Summary ---
Author Organization [facility] Address [address] [place] [address]. [place] [address] [place] [address] Care Team Providers Care Shirt Maker Name Role Phone Unavailable Primary Care Provider Unavailabl e Encounter Details Date Type Department Care Team (Late st Contact Info) Description 10/19/2002 Abstract [facility] [address] [place] [address] , Generic Conversion, Social History Tobacco Use Types Packs/Day Years Used Date Smoking Tobacco: Never Assessed Comments Unknown Sex and Gender Information Value Date Recorded Sex Assigned at Not on file Legal Sex Female 5:57 PM USED CAR MAKE READY MECHANIC Gender Identity Not on file Sexual Orientation Not on file documented as of this encounter Plan of Treatment Not on file documented as of this encounter Visit Diagnoses Not on filedocumented in this encounter
--- OUTSIDE RECORDS SUMMARY | 2024-06-09 05:25 | XMS_ITS | Encounter Summary ---
Author Organization [facility] Address [address] [place] [address]. [place] [address] [place] [address] Care Team Providers Care Armament Installer Name Role Phone Pierre Acuna DO Unavailable [phone] Dick Wu MD Unavailable Unavailabl e Pierre Acuna DO Primary Care Provider [phone] Reason for Visit * Reason Onset Date Comments Reschedule 03/06/2023 Encounter Details Date Type Department Care Team (Late st Contact Info) Description 03/06/2023 Telephone [facility] [address] [place] [id number] Dick Wu MD Reschedule Social History Tobacco Use Types Packs/Day Years Used Date Smoking Tobacco: Never Smokeless Tobacco: Never Comments Unknown Sex and Gender Information Value Date Recorded Sex Assigned at Not on file Legal Sex Female 5:57 PM SOCIAL INSURANCE ANALYST Gender Identity Not on file Sexual Orientation Not on file documented as of this encounter Progress Notes * Sallie Lugo RN - 03/10/2023 11:28 AM CDT F/u appointment scheduled for 08/27/23 at [address] [place] [address] Wu. Phoned patient, no answer, message left with date/time Appointment reminder letter mailed to patient. * Becca Gray - 03/06/2023 8:11 AM CDT The pt is calling to reschedule her appt today. When she woke up this morning it is hard for her towalk this morning because of her pinched nerve in her back. I have canceled the appt [facility] pleasecall back to reschedule I tried to reschedule but couldn't find an appt soon. documented in this encounter Plan of Treatment Not on file documented as of this encounter Visit Diagnoses Not on filedocumented in this encounter Care Teams Armament Installer Relationship Specialty Start Date End Date Pierre Acuna DO [address] [place] [address] PCP - General FAMILY PRACTICE 01/03/20 Pierre Acuna DO [address] [place] [address] FAMILY PRACTICE 12/03/19 Dick Wu MD [address] [place] [address] Consulting Physician CARDIOVASCULAR DISEASE 12/03/19 documented as of this encounter
--- OUTSIDE RECORDS SUMMARY | 2024-06-09 05:25 | XMS_ITS | Encounter Summary ---
Author Organization [facility] Address [address] [place] [address]. [place], [place] [address] [place] [address] Care Team Providers Care Bristle Machine Operator Name Role Phone Pierre Acuna DO Unavailable [phone] Dick Wu MD Unavailable Unavailabl e Pierre Acuna DO Primary Care Provider [phone] Reason for Visit * Reason Onset Date Comments Lab Results 01/31/2020 Encounter Details Date Type Department Care Team (Late st Contact Info) Description 01/31/2020 Telephone [facility] [address] [place] [address] Dick Wu MD Lab Results Social History Tobacco Use Types Packs/Day Years Used Date Smoking Tobacco: Never Smokeless Tobacco: Never Comments Unknown Sex and Gender Information Value Date Recorded Sex Assigned at Not on file Legal Sex Female 5:57 PM NURSE INFORMATICS EDUCATOR Gender Identity Not on file Sexual Orientation [...] on filedocumented in this encounter Care Teams Bristle Machine Operator Relationship Specialty Start Date End Date Pierre Acuna DO [address] [place] [address] PCP - General FAMILY PRACTICE 01/03/20 Pierre Acuna DO [address] [place] [address] FAMILY PRACTICE 12/03/19 Dick Wu MD [address] [place] [address] Consulting Physician CARDIOVASCULAR DISEASE 12/03/19 documented as of this encounter
--- OUTSIDE RECORDS SUMMARY | 2024-06-09 05:25 | XMS_ITS | Encounter Summary ---
Author Organization [facility] Address [address] [place] [address]. [place] [address] [place] [address] Care Team Providers Care Genetic Coordinator Name Role Phone Unavailable Primary Care Provider Unavailabl e Encounter Details Date Type Department Care Team (Late st Contact Info) Description 08/29/2004 Abstract [facility] [address] [place] [address] Keith Lopez MD Social History Tobacco Use Types Packs/Day Years Used Date Smoking Tobacco: Never Assessed Comments Unknown Sex and Gender Information Value Date Recorded Sex Assigned at Not on file Legal Sex Female 5:57 PM CONVEYOR TENDER Gender Identity Not on file Sexual Orientation Not on file documented as of this encounter Plan of Treatment Not on file documented as of this encounter Visit Diagnoses Not on filedocumented in this encounter
--- OUTSIDE RECORDS SUMMARY | 2024-06-09 05:25 | XMS_ITS | Encounter Summary ---
Author Organization [facility] Address [address] [place] [address]. [place] [address] [place] [address] Care Team Providers Care Assembler Dc Field Ring Name Role Phone Unavailable Primary Care Provider Unavailabl e Encounter Details Date Type Department Care Team (Late st Contact Info) Description 09/28/2002 Abstract [facility] [address] [place] [address] , Generic Conversion, Social History Tobacco Use Types Packs/Day Years Used Date Smoking Tobacco: Never Assessed Comments Unknown Sex and Gender Information Value Date Recorded Sex Assigned at Not on file Legal Sex Female 5:57 PM FIRST AID OFFICER Gender Identity Not on file Sexual Orientation Not on file documented as of this encounter Plan of Treatment Not on file documented as of this encounter Visit Diagnoses Not on filedocumented in this encounter
--- OUTSIDE RECORDS SUMMARY | 2024-06-09 05:25 | XMS_ITS | Encounter Summary ---
Author Organization [facility] Address [facility]. [place], [place] [address] [place] [address] Care Team Providers Care Repair Manager Name Role Phone Unavailable Primary Care Provider Unavailabl e Encounter Details Date Type Department Care Team (Late st Contact Info) Description 11/03/2008 Abstract [facility] [address] [place] [address] Dick Coppola III, MD [address] [place] [address] Social History Tobacco Use Types Packs/Day Years Used Date Smoking Tobacco: Never Assessed Comments Unknown Sex and Gender Information Value Date Recorded Sex Assigned at Not on file Legal Sex Female 5:[address] Gender Identity Not on file Sexual Orientation Not on file documented as of this encounter Plan of Treatment Not on file documented as of this encounter Visit Diagnoses Diagnosis Encounter for other physical therapy documented in this encounter
--- OUTSIDE RECORDS SUMMARY | 2024-06-09 05:25 | XMS_ITS | Encounter Summary ---
Author Organization [facility] Address [address] [place] [address]. [place], [place] [address] [place] [address] Care Team Providers Care Airplane Fueler Name Role Phone Tomer Linn MD Primary Care Provider [phone] Pierre Acuna DO Unavailable [phone] Dick Wu MD Unavailable Unavailabl e Reason for Visit * Reason Comments Lab (SCAN) Encounter Details Date Type Department Care Team (Late st Contact Info) Description 11/16/2019 Scan [facility] [address] [place] [address] Scanned, Documents Lab (SCAN) Social History Tobacco Use Types Packs/Day Years Used Date Smoking Tobacco: Never Assessed Comments Unknown Sex and Gender Information Value Date Recorded Sex Assigned at Not on file Legal Sex Female 5:57 PM 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 Gender Identity Not on file Sexual Orientation Not on file documented as of this encounter Plan of Treatment Not on file documented as of this encounter Procedures Procedure Name Priority Date/Time Associated Diagnosis Comments OUTSIDE PT/INR (SCAN ORDER) Routine 11/16/2019 OUTSIDE LAB (SCAN ORDER) Routine 11/16/2019 documented in this encounter Results * OUTSIDE PT/INR (11/16/2019) 11/16/2019 us Documents Scanned SCANNING Final Result [facility] * OUTSIDE LAB (11/16/2019) 11/16/2019 us Documents Scanned SCANNING Final Result [facility] documented in this encounter Visit Diagnoses Not on filedocumented in this encounter Care Teams Airplane Fueler Relationship Specialty Start Date End Date Tomer Linn MD [address] [place] [address] PCP - General FAMILY PRACTICE 12/03/19 01/02/20 Pierre Acuna DO [address] [place] [address] FAMILY PRACTICE 12/03/19 Dick Wu MD [address] [place] [address] Consulting Physician CARDIOVASCULAR DISEASE 12/03/19 documented as of this encounter
--- OUTSIDE RECORDS SUMMARY | 2024-06-09 05:25 | XMS_ITS | Encounter Summary ---
Author Organization [facility] Address [address] [place] [address]. [place] [address] [place] [address] Care Team Providers Care Anode Builder Name Role Phone Pierre Florence DO Unavailable [phone] Dariela Wu MD Unavailable Unavailabl e Pierre Florence DO Primary Care Provider [phone] Reason for Visit * Reason Comments Follow Up Encounter Details Date Type Department Care Team (Late st Contact Info) Description 05/21/2023 1:00 PM CERTIFIED PROFESSIONAL MIDWIFE Office Visit [facility] [place] [id number] Dariela Wu MD Follow Up Social History Tobacco Use Types Packs/Day Years Used Date Smoking Tobacco: Never Smokeless Tobacco: Never Tobacco Cessation:Counseling Given: Not Answered Alcohol Use Standard Drinks/Week Comments Yes 0 (1 standard drink = 0.6 oz pur e alcohol) at weddings Comments Unknown Sex and Gender Information Value Date Recorded Sex Assigned at Not on file Legal Sex Female 5:57 PM CERTIFIED PROFESSIONAL MIDWIFE Gender Identity Not on file Sexual Orientation Not on file documented as of this encounter Last Filed Vital Signs Vital Sign Reading Time Taken Comments Blood Pressure 147/44 05/21/2023 1:00 PM CERTIFIED PROFESSIONAL MIDWIFE Pulse 70 05/21/2023 1:00 PM CERTIFIED PROFESSIONAL MIDWIFE Temperature - - Respiratory Rate - - Oxygen Saturation 98% 05/21/2023 1:00 PM CERTIFIED PROFESSIONAL MIDWIFE Inhaled Oxygen Concentration - - Weight 121 kg (266 lb 12.8 oz) 05/21/2023 1:00 P M CERTIFIED PROFESSIONAL MIDWIFE Height 160 cm (5' 3 ) 05/21/2023 1:00 PM CERTIFIED PROFESSIONAL MIDWIFE Body Mass Index 47.26 05/21/2023 1:00 PM CERTIFIED PROFESSIONAL MIDWIFE documented in this encounter Patient Instructions * Patient Instructions* Sallie Lugo RN - 05/21/2023 1:00 PM CERTIFIED PROFESSIONAL MIDWIFE INCREASE: Furosemide (lasix) 40 mg- take 1 tablet daily in the am Wear support stockings- (please call our office if needing an order) during the day, may remove at bedtime. IFIED PROFESSIONAL MIDWIFE documented in this encounter Progress Notes * [...] chronicity, unspecified whether acute cor pulmonale present ([facility]) ([facility]) 4. Primary hypertension 5. Other hyperlipidemia Referring Provider: No ref. provider found PCP: PIERRE FLORENCE DO IFIED PROFESSIONAL MIDWIFE * Dariela Wu MD - 05/21/2023 1:00 PM CST Patient Name: PROMISE FIERRO Date of : 1940 Account: [id number] Facility: [facility] Location: [facility] Date of Service: 05/21/2023 Visit HISTORY [...] any questions or problems. Signature/Date: DARIELA WU #[id number] /DARREL IFIED PROFESSIONAL MIDWIFE documented in this encounter Plan of Treatment Not on file documented as of this encounter Visit Diagnoses Diagnosis Pedal edema- Primary Edema History of DVT (deep vein thrombosis) Personal history of venous thrombosis and embolism Pulmonary embolism, other, unspecified chronicity, unspecified whether acute cor pulmonale present ([facility]) Primary hypertension Unspecified essential hypertension Other hyperlipidemia documented in this encounter Care Teams Anode Builder Relationship Specialty Start Date End Date Pierre Florence DO [address] [place] [address] PCP - General FAMILY PRACTICE 01/03/20 Pierre Florence DO [address] [place] [address] FAMILY PRACTICE 12/03/19 Dariela Wu MD [address] [place] [address] Consulting Physician CARDIOVASCULAR DISEASE 12/03/19 documented as of this encounter
--- OUTSIDE RECORDS SUMMARY | 2024-06-09 05:25 | XMS_ITS | Encounter Summary ---
Author Organization [facility] Address [address] [place] [address]. [place] [address] [place] [address] Care Team Providers Care Licensed Practical Nurse Name Role Phone Unavailable Primary Care Provider Unavailabl e Encounter Details Date Type Department Care Team (Late st Contact Info) Description 05/30/2003 Abstract SFL CONVERSION [address] [place] [address] , Generic Conversion, Social History Tobacco Use Types Packs/Day Years Used Date Smoking Tobacco: Never Assessed Comments Unknown Sex and Gender Information Value Date Recorded Sex Assigned at Not on file Legal Sex Female 5:57 PM CONTACT PERSON Gender Identity Not on file Sexual Orientation Not on file documented as of this encounter Plan of Treatment Not on file documented as of this encounter Visit Diagnoses Not on filedocumented in this encounter
--- OUTSIDE RECORDS SUMMARY | 2024-06-09 05:25 | XMS_ITS | Encounter Summary ---
Author Organization [facility] Address [facility] [place] [address] [place] [address] Care Team Providers Care Weaver Hand Loom Name Role Phone Pierre Acuna DO Unavailable [phone] Dick Wu MD Unavailable Unavailabl e Pierre Acuna DO Primary Care Provider [phone] Reason for Visit * Reason Onset Date Comments Reschedule 01/02/2022 Encounter Details Date Type Department Care Team ([facility] Contact Info) Description 01/02/2022 Telephone [facility] [address] [place] [address] Vickie Dalton, AUTOMOTIVE GLASS TECHNICIAN, COMPUTER HARDWARE ENGINEER-C [address] [facility] [address] [place] [address] Reschedule Social History Tobacco Use Types Packs/Day Years Used Date Smoking Tobacco: Never Smokeless Tobacco: Never Comments Unknown Sex and Gender Information Value Date Recorded Sex Assigned at Not on file Legal Sex Female 5:57 PM ELECTRICIAN ASSISTANT Gender Identity Not on file Sexual Orientation Not on file documented as of this encounter Progress Notes * Tana Delarosa RN - 01/02/2022 5:22 PM CDT Promise called and asked to reschedule her 01/04/2022 follow up appointment with Brenden Dalton due to transportation issues. Rescheduled to 01/28/2022 at 1330 at [facility]. documented in this encounter Plan of Treatment Not on file documented as of this encounter Visit Diagnoses Not on filedocumented in this encounter Care Teams Weaver Hand Loom Relationship Specialty Start Date End Date Pierre Acuna DO [address] [place] [address] PCP - General FAMILY PRACTICE 01/03/20 Pierre Acuna DO [facility] [place] [address] FAMILY PRACTICE 12/03/19 Dick Wu MD [facility] [place] [address] Consulting Physician CARDIOVASCULAR DISEASE 12/03/19 documented as of this encounter
--- OUTSIDE RECORDS SUMMARY | 2024-06-09 05:25 | XMS_ITS | Encounter Summary ---
Author Organization [facility] Address [address] [place] [address]. [place] [address] [place] [address] Care Team Providers Care Chemist Inorganic Name Role Phone Tomer Linn MD Primary Care Provider [phone] Pierre Acuna DO Unavailable [phone] Dick Wu MD Unavailable Unavailabl e Reason for Visit * Reason Onset Date Comments Appointment Request 12/03/2019 Encounter Details Date Type Department Care Team (Late st Contact Info) Description 12/03/2019 Telephone [facility] [employer] [facility] [address] [place] [address] Dick Wu MD Appointment Request Social History Tobacco Use Types Packs/Day Years Used Date Smoking Tobacco: Never Assessed Comments Unknown Sex and Gender Information Value Date Recorded Sex Assigned at Not on file Legal Sex Female 5:57 PM 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 Gender Identity Not on file Sexual Orientation Not on file documented as of this encounter Progress Notes * Liz Navarro RN - 12/03/2019 3:37 PM CDT self [facility] for leg swelling[facility]records requested/letter mailed request Dr Wu [place] received call pt's son on the line [place], wanting to schedule an apt with Dr Wu Apt made for pt to see Dr Wu on January 02 at 1:30 in [place] Letter mailed [place] called PCP for last office note and labs, echo report in [facility] documented in this encounter Plan of Treatment Not on file documented as of this encounter Visit Diagnoses Not on filedocumented in this encounter Care Teams Chemist Inorganic Relationship Specialty Start Date End Date Tomer Linn MD [address] [place] [address] PCP - General FAMILY PRACTICE 12/03/19 01/02/20 Pierre Acuna DO [address] [place] [address] FAMILY PRACTICE 12/03/19 Dick Wu MD [address] [place] [address] Consulting Physician CARDIOVASCULAR DISEASE 12/03/19 documented as of this encounter
--- OUTSIDE RECORDS SUMMARY | 2024-06-09 05:25 | XMS_ITS | Encounter Summary ---
Author Organization [facility] Address [address] [place] [address]. [place] [address] [place] [address] Care Team Providers Care Design Checker Name Role Phone Pierre Acuna DO Unavailable [phone] JeromePierre szymanski Primary Care Provider [phone] Krys Jules MD Unavailable [phone] Hayley Pan [facility] Unavailable [phone] Reason for Visit * Reason Onset Date Comments Reschedule 10/15/[address] Ludin Jules/Maxim Encounter Details Date Type Department Care Team (Late st Contact Info) Description 10/15/2023 Telephone [facility] [address] [place] [address] Dick Wu MD Reschedule (Reassigned to Dr. 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 R/s letter mailed to pt. documented in this encounter Plan of Treatment Not on file documented as of this encounter Visit Diagnoses Not on filedocumented in this encounter Care Teams Design Checker Relationship Specialty Start Date End Date Pierre Acuna DO [address] [place] [address] PCP - General FAMILY PRACTICE 01/03/20 Pierre Acuna DO [address] [place] [address] FAMILY PRACTICE 12/03/19 Krys Jules MD [address] [place] [address] INTERVENTIONAL CARDIOLOGY 10/15/23 Hayley Pan, [facility]- [address] [place] [address] Nurse Practitioner NURSE PRACTITIONER ADULT HEALTH 10/15/23 documented as of this encounter
--- OUTSIDE RECORDS SUMMARY | 2024-06-09 05:25 | XMS_ITS | Encounter Summary ---
Author Organization [facility] Address [address] [place] [address]. [place], [place] [address] [place] [address] Care Team Providers Care Safety Net Maker Name Role Phone Pierre Acuna DO Unavailable [phone] Dick Wu MD Unavailable Unavailabl e Pierre Acuna DO Primary Care Provider [phone] Encounter Details Date Type Department Care Team (Latest Contact Info) Description 05/21/2023 Travel Social History Tobacco Use Types Packs/Day Years Used Date Smoking Tobacco: Never Smokeless Tobacco: Never Comments Unknown Sex and Gender Information Value Date Recorded Sex Assigned at Not on file Legal Sex Female 5:57 PM ALLIED HEALTH INSTRUCTOR Gender Identity Not on file Sexual Orientation Not on file documented as of this encounter Plan of Treatment Not on file documented as of this encounter Visit Diagnoses Not on filedocumented in this encounter Care Teams Safety Net Maker Relationship Specialty Start Date End Date Pierre Acuna DO [address] [place] [address] PCP - General FAMILY PRACTICE 01/03/20 Pierre Acuna DO [address] [place] [address] FAMILY PRACTICE 12/03/19 Dick Wu MD [address] [place] [address] Consulting Physician CARDIOVASCULAR DISEASE 12/03/19 documented as of this encounter
--- OUTSIDE RECORDS SUMMARY | 2024-06-09 05:25 | XMS_ITS | Encounter Summary ---
Author Organization [facility] Address [address] [place] [address]. [place] [address] [place] [address] Care Team Providers Care Filemaker Developer Name Role Phone Pierre Acuna DO Unavailable [phone] Dick Wu MD Unavailable Unavailabl e Pierre Acuna DO Primary Care Provider [phone] Reason for Visit * Reason Onset Date Comments Reschedule 01/24/2022 Encounter Details Date Type Department Care Team ([facility] Contact Info) Description 01/24/2022 Telephone [facility] [address] [place] [address] Vickie Dalton, ZENA, ESTIMATOR PROJECT MANAGER-C [address] [facility] [address] [place] [address] Reschedule Social History Tobacco Use Types Packs/Day Years Used Date Smoking Tobacco: Never Smokeless Tobacco: Never Comments Unknown Sex and Gender Information Value Date Recorded Sex Assigned at Not on file Legal Sex Female 5:57 PM 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
--- OUTSIDE RECORDS SUMMARY | 2024-06-09 05:25 | XMS_ITS | Encounter Summary ---
Author Organization [facility] Address [address] [place] [address]. [place] [address] [place] [address] Care Team Providers Care Skip Hoist Operator Name Role Phone Pierre Acuna DO Unavailable [phone] Dick Wu MD Unavailable Unavailabl e Pierre Acuna DO Primary Care Provider [phone] Encounter Details Date Type Department Care Team (Latest Contact Info) Description 02/28/2022 Travel Social History Tobacco Use Types Packs/Day Years Used Date Smoking Tobacco: Never Smokeless Tobacco: Never Comments Unknown Sex and Gender Information Value Date Recorded Sex Assigned at Not on file Legal Sex Female 5:57 PM SHORT PIECE HANDLER Gender Identity Not on file Sexual Orientation [...] on filedocumented in this encounter Care Teams Skip Hoist Operator Relationship Specialty Start Date End Date Pierre Acuna DO [address] [place] [address] PCP - General FAMILY PRACTICE 01/03/20 Pierre Acuna DO [address] [place] [address] FAMILY PRACTICE 12/03/19 Dick Wu MD [address] [place] [address] Consulting Physician CARDIOVASCULAR DISEASE 12/03/19 documented as of this encounter
--- OUTSIDE RECORDS SUMMARY | 2024-06-09 05:25 | XMS_ITS | Encounter Summary ---
Author Organization [facility] Address [address] [place] [address]. [place] [address] [place] [address] Care Team Providers Care Music Ministries Director Name Role Phone Unavailable Primary Care Provider Unavailabl e Encounter Details Date Type Department Care Team (Late st Contact Info) Description 08/18/2007 Abstract SFL CONVERSION [address] [place] [address] Keith Lopez MD Social History Tobacco Use Types Packs/Day Years Used Date Smoking Tobacco: Never Assessed Comments Unknown Sex and Gender Information Value Date Recorded Sex Assigned at Not on file Legal Sex Female 5:57 PM CAT SKINNER Gender Identity Not on file Sexual Orientation Not on file documented as of this encounter Plan of Treatment Not on file documented as of this encounter Visit Diagnoses Not on filedocumented in this encounter
--- OUTSIDE RECORDS SUMMARY | 2024-06-09 05:25 | XMS_ITS | Encounter Summary ---
Author Organization [facility] Address [address] [place] [address]. [place] [address] [place] [address] Care Team Providers Care Harness Builder Name Role Phone Unavailable Primary Care Provider Unavailabl e Encounter Details Date Type Department Care Team (Late st Contact Info) Description 05/20/2001 Abstract SFL CONVERSION [address] [place] [address] , Generic Conversion, Social History Tobacco Use Types Packs/Day Years Used Date Smoking Tobacco: Never Assessed Comments Unknown Sex and Gender Information Value Date Recorded Sex Assigned at Not on file Legal Sex Female 5:57 PM DEALER SALES REP Gender Identity Not on file Sexual Orientation Not on file documented as of this encounter Plan of Treatment Not on file documented as of this encounter Visit Diagnoses Not on filedocumented in this encounter
--- OUTSIDE RECORDS SUMMARY | 2024-06-09 05:27 | XMS_ITS | Encounter Summary ---
Author Organization [facility] Address [address] [place] [address] Phone Care Team Providers Care Health And Safety Inspector Name Role Phone Provider, Not On File Primary Care Provider Unav ailable Reason for Referral * Radiology Services (Routine) - Closed Specialty Diagnoses / Procedures Referred By Eliana dee Referred To Contact Radiology Diagnoses Preop examination Procedures EKG 12 LEAD Tavia Childress APRN, CNP [address] [place] [address] Phone: tel: fax: Referral ID Status Reason Start Date Expiration Date Visits Re quested Visits Authorized [id number] Closed 11/14/2021 1 1 Encounter Details Date Type Department Care Team (Late st Contact Info) Description 11/14/2021 Transcribe Orders [facility] Central Scheduling 1 [facility] [place] [id number] Tavia Childress APRN, CNP [address] [place] [address] Preop examination (Primary Dx) Social History Tobacco [...] 12 LEAD (11/14/2021 10:41 AM CDT) Pathologist [facility] Ventricular Rate BPM EXTERNAL EKG Atrial Rate BPM EXTERNAL EKG P-R Interval 200 ms EXTERNAL EKG QRS Duration 80 ms EXTERNAL EKG Q-T Duration 408 ms EXTERNAL EKG QTC CALCULATION 438 ms EXTERNAL EKG P [place] -3 degrees EXTERNAL EKG R [place] 21 degrees EXTERNAL EKG T [place] 27 degrees EXTERNAL EKG 11/14/2021 10:4 1 AM CDT Impressions EXTERNAL EKG - 11/16/2021 10:39 AM CDT Sinus rhythm Low QRS voltages in precordial leads Comparison Summary: No serial comparison made Summary: Borderline ECG Confirmed by Aris Lee [id number] on 11/16/2021 10:39:35 AM Narrative Procedure Note Jesus Buckley MD - 11/16/2021 IMPRESSION: Sinus rhythm Low QRS voltages in precordial leads Comparison Summary: No serial comparison made Summary: Borderline ECG Confirmed by Aris Lee [id number] on 11/16/2021 10:39:35 AM Tavia Childress APRN, SRAVANTHI IMG ECG ORDERABLES [facility] Result EXTERNAL EKG * (ABNORMAL) URINALYSIS REFLEX IF INDICATED BY ABNORMAL RESULTS (11/14/2021 10:27 AM CDT) [facility] SPECIFIC GRAVITY 1.020 1.003 - 1.030 11/14/2021 11:15 AM CDT [facility] URINE PH 5.0 5.0 - 9.0 11/14/2021 11:15 AM CDT [facility] WBC ESTERASE Negative Negative 11/14/2021 11:15 AM CD[address] [facility] NITRITE Negative Negative 11/14/2021 11:15 AM CDT [facility] PROTEIN, RANDOM URINE 15 mg/dL(A) Negative 11/14/2021 11:15 AM CDT [facility] URINE GLUCOSE, QUAL Negative Negative 11/14/2021 11:15 AM CDT [facility] URINE KETONES Negative Negative 11/14/2021 11:15 AM CDT [facility] UROBILINOGEN Normal Normal mg/dL 11/14/2021 11:15 AM CDT [facility] URINE BLOOD 10 /uL(A) Negative marimar/ul 11/14/2021 11:15 AM CDT [facility] URINALYSIS COLOR Yellow 11/15/19 11:15 AM CDT [facility] URINALYSIS CLARITY Slightly Cloudy 11/14/2021 11:15 AM CDT [facility] WBC (Urine) 0-5 Negative, 0-5 /hpf 11/14/2021 11:15 AM CDT [facility] URINE RBC'S Negative Negative, 0-2 /hpf 11/14/2021 11:15 AM CDT [facility] EPITHELIAL CELLS Small amount /lpf 2021 11:15 AM CDT [facility] BACTERIA, URINE Moderate(A) Negative /hpf 11/14/2021 11:15 AM CDT [facility] CASTS 1-5/LPF Finely Granular Casts(A) Negative, 0-2/lpf, 3-5/lpf, 6-10/lpf, 11-20/lpf, >20/lpf /lpf 11/14/2021 11:15 AM CDT [facility] Urine URINE SPECIMEN COLLECTION, CLEAN CATCH / Unknown Non-Phlebotomy Collection / Unknown 11/14/2021 10:27 AM CDT 11/14/2021 10:42 AM CDT us Tavia Childress IMITATION MARBLE MECHANIC, [place] URINE ORDERABLES Dulce l Result [facility] [address] [place] [address] * (ABNORMAL) CMP (COMPREHENSIVE METABOLIC PANEL) (11/14/2021 10:21 AM CDT) SODIUM 140 136 - 144 mmol/L 11/14/2021 11:09 AM T [facility] POTASSIUM 4.7 3.5 - 5.1 mmol/L 11/14/2021 11:09 AM T [facility] CHLORIDE 101 100 - 110 mmol/L 11/14/2021 11:09 AM T [facility] CO2, VENOUS 30 22 - 32 mmol/L 11/14/2021 11:09 AM [facility] ANION GAP 13.7 8.0 - 20.0 mmol/L 11/14/2021 11:09 AM [facility] GLUCOSE 102(H) 70 - 99 mg/dL 11/14/2021 11:09 AM [facility] BUN 26(H) 8 - 23 mg/dL 11/14/2021 11:09 AM [facility] CREATININE, BLOOD 0.60 0.60 - 1.10 mg/dL 11/14/2021 11:09 AM [facility] BUN/CREATININE RATIO 43(H) 12 - 20 ratio 11/14/2021 11:09 AM [facility] TOTAL PROTEIN 6.6 6.0 - 8.3 g/dL 11/14/2021 11:09 AM [facility] ALBUMIN 4.1 3.5 - 5.2 g/dL 11/14/2021 11:09 AM [facility] Comment: The colormetric methods used for the determination of Albumin may lead to falsely elevated test results in patients suffering from renal failure or insufficiency due to interference with other proteins. A/G RATIO 1.6 1.0 - 2.0 11/14/2021 11:09 AM [facility] CALCIUM 9.6 8.9 - 10.3 mg/dL 11/14/2021 11:09 AM [facility] T BILI 0.3 <=1.2 mg/dL 11/14/2021 11:09 AM CDT [facility] SGOT (AST) 21 <=32 U/L 11/14/2021 11:09 AM CDT [facility] SGPT (ALT) 17 <=41 U/L 11/14/2021 11:09 AM CDT [facility] ALKALINE PHOSPHATASE 96 35 - 105 U/L 11/14/2021 11:09 AM CDT [facility] GFR, EST. NONAFRICAN >60 >=60 11/14/2021 11:09 AM CDT [facility] GFR, EST. >60 >=60 022 11:09 AM CDT [facility] Comment: Creatinine Clearance is the preferred criteria for selecting drug dose adjustments in renally impaired patients. ??The GFR is provided as additional pertinent clinical information. GFR is reported in mL/min/1.73 sq m. IS THE PATIENT REQUIRED TO BE FASTING? No 11/14/2021 11:09 AM CDT [facility] Blood Venipuncture / Unknown 11/14/2021 10:21 AM CDT 11/14/2021 10:43 AM CDT Tavia Childress APRN, SRAVANTHI CHEMISTRY ORDERABLES Final Result [facility] [address] [place] [address] * ERYTHROCYTE SEDIMENTATION RATE (ESR) (11/14/2021 10:21 AM CDT) ESR (SED RATE, ERYTHROCYTE SEDIMENTATION RATE) 8 <30 mm/h 11/14/2021 11:08 AM CDT [facility] Comment: Patients presenting with increased level of fibrinogen, gamma globulins, or abnormally shaped RBCs could affect the results for the erythrocyte sedimentation rate (ESR). Results should be clinically correlated. Blood Venipuncture / Unknown 11/14/2021 10:21 AM CDT 11/14/2021 10:43 AM CDT us Tavia Childress APRN, SRAVANTHI HEMATOLOGY ORDERABLES Final Result Performing Organization Address City/[facility] Co de Phone Number [facility] [address] [place] [address] * C-REACTIVE PROTEIN (CRP) QUANT (11/14/2021 10:21 AM CDT) C-REACTIVE PROTEIN <=0.30 <0.50 mg/dL 11/14/2021 11:09 AM CDT [facility] Blood Venipuncture / Unknown 11/14/2021 10:21 AM CDT 11/14/2021 10:43 AM CDT us Tavia Childress APRN, SRAVANTHI CHEMISTRY ORDERABLES Final Result Performing Organization Address City/[facility] Co de Phone Number [facility] [address] [place] [address] documented in this encounter Visit Diagnoses Diagnosis Preop examination- Primary Preoperative examination, unspecified Preop examination Preoperative examination, unspecified documented in this encounter Additional Health Concerns Assessment Noted Time PHQ-9 Depression Total Score: 0 01/14/20 17 1:00 PM CDT documented as of this encounter Care Teams Health And Safety Inspector Relationship Specialty Start Date End Date Provider, Not On File [place] PCP - General 11/14/21 documented as of this encounter
--- OUTSIDE RECORDS SUMMARY | 2024-06-09 05:27 | XMS_ITS | Encounter Summary ---
Author Organization [facility] Address [address] [place] [address] Phone Care Team Providers Care Paperhanger Apprentice Name Role Phone Provider, Not On File Primary Care Provider Unav ailable Reason for Referral * Radiology Services (Routine) - Closed Specialty Diagnoses / Procedures Referred By Conttroy t Referred To Contact Radiology Diagnoses Preop examination Procedures EKG 12 LEAD Mayda Patiño APRN, CNP [address] [facility] [address] [address] [place] [address] Phone: tel: fax: Referral ID Status Reason Start Date Expiration Date Visits Re quested Visits Authorized [id number] Closed 11/14/2021 1 1 Encounter Details Date Type Department Care Team (Late st Contact Info) Description 11/14/2021 Transcribe Orders [facility] Patient Access Admitting 1 [place] [id number] Mayda Patiño APRN, CNP [address] [facility] [place] [id number] Preop examination (Primary Dx) Social History Tobacco [...] documented as of this encounter Care Teams Paperhanger Apprentice Relationship Specialty Start Date End Date Provider, Not On File [place] PCP - General 11/14/21 documented as of this encounter
--- OUTSIDE RECORDS SUMMARY | 2024-06-09 05:27 | XMS_ITS | Encounter Summary ---
Author Organization [facility] Care Team Providers Care Review Trainer Name Role Phone Provider, Not On File [...] documented as of this encounter Care Teams Review Trainer Relationship Specialty Start Date End Date Provider, Not On File [place] PCP - General 11/14/21 documented as of this encounter
--- OUTSIDE RECORDS SUMMARY | 2024-06-09 05:27 | XMS_ITS | Encounter Summary ---
Author Organization [facility] Address [address] [place] [address] Phone Care Team Providers Care Marketing Traffic Manager Name Role Phone Provider, Not On File Primary Care Provider Unav ailable Reason for Referral * Radiology Services (Routine) - Closed Specialty Diagnoses / Procedures Referred By Augustineac luiz Referred To Contact Radiology Diagnoses Preop examination Procedures EKG 12 LEAD Tavia Childress APRN, CNP [address] [place] [address] Phone: tel: fax: Referral ID Status Reason Start Date Expiration Date Visits Re quested Visits Authorized [id number] Closed 11/14/2021 1 1 Reason for Visit * Radiology Services (Routine) - Closed Specialty Diagnoses / Procedures Referred By Eliana dee Referred To Contact Radiology Diagnoses Preop examination Procedures EKG 12 LEAD Tavia Childress APRN, CNP [address] [place] [address] Phone: tel: fax: Referral ID Status Reason Start Date Expiration Date Visits Re quested Visits Authorized [id number] Closed 11/14/2021 1 1 Encounter Details Date Type Department Care Team ([facility] st Contact Info) Description 11/14/2021 10:00 AM CDT - 11/14/2021 11:59 PM CDT Hospital Encounter [facility] Cardiology Services 1 [place] [id number] Monroe, Tavia A, MAPPING EDITOR, CAT SCANNER OPERATOR [address] [place] [address] Discharge Disposition: Discharged to home or Selfcare [...] QTC CALCULATION 438 ms EXTERNAL EKG P [place] -3 degrees EXTERNAL EKG R [place] 21 degrees EXTERNAL EKG T [place] 27 degrees EXTERNAL EKG 11/14/2021 10:4 1 AM CDT Impressions EXTERNAL EKG - 11/16/2021 10:39 AM CDT Sinus rhythm Low QRS voltages in precordial leads Comparison Summary: No serial comparison made Summary: Borderline ECG Confirmed by Aris Lee [id number] on 11/16/2021 10:39:35 AM Narrative Procedure Note Jesus Buckley MD - 11/16/2021 IMPRESSION: Sinus rhythm Low QRS voltages in precordial leads Comparison Summary: No serial comparison made Summary: Borderline ECG Confirmed by Aris Lee [id number] on 11/16/2021 10:39:35 AM us Tavia Childress MAPPING EDITOR, CAT SCANNER OPERATOR IMG ECG ORDERABLES Fi nal Result EXTERNAL EKG documented in this encounter Visit Diagnoses Diagnosis Preop examination Preoperative examination, unspecified documented in this encounter Additional Health Concerns Assessment Noted Time PHQ-9 Depression Total Score: 0 01/14/20 17 1:00 PM CDT documented as of this encounter Care Teams Marketing Traffic Manager Relationship Specialty Start Date End Date Provider, Not On File [place] PCP - General 11/14/21 documented as of this encounter
--- OUTSIDE RECORDS SUMMARY | 2024-06-09 05:27 | XMS_ITS | Clinical Summary ---
Author Organization [facility] Address [address] [facility] [address] [place] [address] Phone Care Team Providers Care Rafter Cutting Machine Operator Name Role Phone Provider, Not On File [...] DETECTED NON DETECTED 03/03/2017 11:[address] [facility] Comment: IGM Antibodies to HAV not detected. ??Does not exclude early acute or recovered HAV infection. HEP B CORE AB (IGM) NON DETECTED NON DETECTED 03/03/2017 11:[address] [facility] Comment: IGM anti-HBC not detected. ??Does not exclude the possibility of exposure to or infection with HBV. HEPATITIS B SURFACE ANTIGEN NON DETECTED NON DETECTED 03/03/2017 11:[address] [facility] Comment: A nonreactive test result does not [...] 0.13 <1 S/CO 03/03/2017 11:[address] [facility] Comment: Signal/Cutoff ratio ??< 0.79 is Nondetected Signal/Cutoff ratio 0.80-0.99 is Grayzone Signal/Cutoff ratio > 0.99 is Detected Supplemental assays are recommended if signal/cutoff ratio is >/=1.00. ??Signal/cutoff ratio result >/= 5.00 is 97% predictive of positivity for recombinant immunoblot assay (RIBA) and will be reported to the [place] Department of Public Health as required. Blood specimen (specimen) Venipuncture / Unknown 03/03/2017 10:47 AM CDT 03/03/2017 12:22 PM CDT us David Patel MD HEMATOLOGY ORDERABLES F inal Result [facility] [address] [place] [address], [place] from Last 3 Months or Most Recently Relevant to Health Maintenance Insurance MEDICARE MEDICAID [place] Advance Directives * Full Code (Latest Code Status on File) Date Activated Date Inactivated Comments 09/08/2015 4:55 PM 09/10/2015 3:27 PM Full Code: FULL ARREST: Attempt Resuscitation/CPR and use intubation and mechanical ventilation as indicated. PRE-ARREST: Use all measures to stabilize patient. Care Teams Rafter Cutting Machine Operator Relationship Specialty Start Date End Date Provider, Not On File [place] PCP - General 11/14/21
--- OUTSIDE RECORDS SUMMARY | 2024-06-09 05:33 | XMS_ITS | Clinical Summary ---
Author Organization Unknown Care Team Providers Care Picking Tech Name Role Phone NAMAN VALDOVINOS, EVAN Unavailable Unavailable LYDIA PHYSICAL THERAPIST, DEMARCUS Unavailabl e Unavailable BAKER FAILURE ANALYSIS TECHNICIAN, EITAN Unavail able Unavailable NELLY REGISTERED NURSE, ALBINA Unavailable Unavailable DENISSE OT, SHELDON Unavailable Unavailabl e Payers Payer Name Policy Type Policy Number Effective Date Expira tion Date MEDICARE [place] - EPISODIC [id number] Problems Condition Name Condition Details Condition Category [...] KNEE JOINT, BILATERAL Active 10-21 00:00: 00 [facility] (CURRENT) USE OF ANTICOAGULAN TS Active - [...] 2022-06 00:00: 00 11-12 23:59 :00 No [id number] BLOOD THINNER; BLOOD CLOT PREVENTION 1 tablet TWICE DAILY 1 tablet TWICE DAILY (route: oral) Med Classific ation: Hematolog ical Agents famotidine 20 mg tablet 2022-06 00:00: 00 11-12 23:59 :00 No [id number] GERD 1 tablet TWICE DAILY 1 tablet TWICE DAILY (route: oral) Med Classific ation: Gastroint estinal Therapy Agents furosemide 40 mg tablet 2022-06 00:00: 00 11-12 23:59 :00 No [id number] HTN/EDEMA 1 tablet ONCE DAILY 1 tablet ONCE DAILY (route: oral) Med Classific ation: Cardiovas cular Therapy Agents hydrocodone 10 mg-acetamin ophen 325 mg tablet 2022-06 00:00: 00 11-12 23:59 :00 No [id number] PAIN 1 tablet EVERY 8 HOURS 1 tablet EVERY 8 HOURS (route: oral) Med Classific ation: Analgesic , Anti-infl ammatory or Antipyret ic irbesartan 150 mg tablet 2022-06 00:00: 00 11-12 23:59 :00 No [id number] HTN 1 tablet ONCE DAILY 1 tablet ONCE DAILY (route: oral) Med Classific ation: Cardiovas cular Therapy Agents Lumigan 0.01 % eye drops 2022-06 00:00: 00 11-12 23:59 :00 No [id number] EYES 1 drops ONCE DAILY 1 drops ONCE DAILY (route: ophthalmic (eye)) Med Classific ation: Ophthalmi c Agents metoprolol succinate ER 100 mg tablet,exte nded release 24 hr 2022-06 00:00: 00 11-12 23:59 :00 No [id number] HTN 1 tablet ONCE DAILY 1 tablet ONCE DAILY (route: oral) Med Classific ation: Cardiovas cular Therapy Agents paroxetine 20 mg tablet 2022-06 00:00: 00 11-12 23:59 :00 No [id number] MOOD 1 tablet ONCE DAILY 1 tablet ONCE DAILY (route: oral) Med Classific ation: Central Nervous System Agents potassium chloride ER 10 mEq tablet,exte nded release 2022-06 00:00: 00 11-12 23:59 :00 No [id number] LOW POTASSIUM 1 tablet ONCE DAILY 1 tablet ONCE DAILY (route: oral) Med Classific ation: Electroly te Balance-N utritiona l Products amlodipine 5 mg tablet 11-18 00:00: 00 Yes [id number] HTN 1 tablet ONCE DAILY 1 tablet ONCE DAILY (route: oral) Med Classific ation: Cardiovas cular Therapy Agents atorvastati n 40 mg tablet 11-18 00:00: 00 Yes [id number] HLD 1 tablet ONCE DAILY 1 tablet ONCE DAILY (route: oral) Med Classific ation: Cardiovas cular Therapy Agents bimatoprost 0.03 % eye drops 11-18 00:00: 00 Yes [id number] GLAUCOMA 1 drops AT BEDTIME 1 drops AT BEDTIME (route: ophthalmic (eye)) Med Classific ation: Ophthalmi c Agents Eliquis 5 mg tablet 11-18 00:00: 00 Yes [id number] BLOOD CLOTS 1 tablet TWICE DAILY 1 tablet TWICE DAILY (route: oral) Med Classific ation: Hematolog ical Agents famotidine 20 mg tablet 11-18 00:00: 00 Yes [id number] GERD 2 tablet ONCE DAILY 2 tablet ONCE DAILY (route: oral) Med Classific ation: Gastroint estinal Therapy Agents furosemide 40 mg tablet 11-18 00:00: 00 Yes [id number] WATER PILL 1 tablet ONCE DAILY 1 tablet ONCE DAILY (route: oral) Med Classific ation: Cardiovas cular Therapy Agents hydrocodone 10 mg-acetamin ophen 325 mg tablet 11-18 00:00: 00 Yes [id number] PAIN 1 tablet EVERY 8 HOURS 1 tablet EVERY 8 HOURS (route: oral) Med Classific ation: Analgesic , Anti-infl ammatory or Antipyret ic levothyroxi ne 75 mcg tablet 11-18 00:00: 00 Yes [id number] HYPOTHYROID ISM 1 tablet ONCE DAILY 1 tablet ONCE DAILY (route: oral) Med Classific ation: Endocrine Lidocaine Pain Relief 4 % topical patch 11-18 00:00: 00 Yes [id number] PAIN 1 adhesiv e patch, medicat ed ONCE DAILY 1 adhesive patch, medicated ONCE DAILY (route: topical) Med Classific ation: Dermatolo gical losartan 25 mg tablet 11-18 00:00: 00 12-20 23:59 :00 No [id number] HTN 3 tablet ONCE DAILY 3 tablet ONCE DAILY (route: oral) Med Classific ation: Cardiovas cular Therapy Agents metoprolol tartrate 100 mg tablet 11-18 00:00: 00 Yes [id number] HTN 1 tablet ONCE DAILY 1 tablet ONCE DAILY (route: oral) Med Classific ation: Cardiovas cular Therapy Agents paroxetine 20 mg tablet 11-18 00:00: 00 Yes [id number] ANXIETY AND DEPRESSON 1 tablet ONCE DAILY 1 tablet ONCE DAILY (route: oral) Med Classific ation: Central Nervous System Agents potassium chloride ER 10 mEq tablet,exte nded release 11-18 00:00: 00 Yes [id number] SUPPLEMENT 1 tablet TWICE DAILY 1 tablet TWICE DAILY (route: oral) Med Classific ation: Electroly te Balance-N utritiona l Products Vitamin C 500 mg tablet 11-18 00:00: 00 Yes [id number] SUPPLEMENT 1 tablet ONCE DAILY 1 tablet ONCE DAILY (route: oral) Med Classific ation: Electroly te Balance-N utritiona l Products Vitamin D3 50 mcg (2,000 unit) tablet 11-18 00:00: 00 Yes [id number] SUPPLEMENT 1 tablet ONCE DAILY 1 tablet ONCE DAILY (route: oral) Med Classific ation: Electroly te Balance-N utritiona l Products zinc gluconate 50 mg tablet 11-18 00:00: 00 Yes [id number] SUPPLEMENT 1 tablet ONCE DAILY 1 tablet ONCE DAILY (route: oral) Med Classific ation: Electroly te Balance-N utritiona l Products alendronate 70 mg tablet 12-22 00:00: 00 Yes [id number] BONE HEALTH 1 tablet WEEKLY 1 tablet [...] SIGNS/SYMPTOMS TO REPORT.] Future Scheduled Test [facility] TIFYING PHYSICIAN, ASSOCIATED PHYSICIAN, NPP OR PA [...] WILL BE ESTABLISHED THAT MEETS ALL PATIENT'S ASSISTED NEEDS AND COUNTER SIGNED BY PHYSICIAN. Goal [...] End Date/Time Encounter Type Admission Type Attending [facility] Department Encounter ID Discharge Date Discharge Status Discharge Condition Discharge Reason Percent Goals Met 2023-11-19 00:00:00 2024-01-16 00:00:00 Outpatient ALBINA GALLEGOS [facility] [id number] 2010[birth year]07[birth year]26 00:00:00 DISCHARGE TO HOME OR SELF CARE MINIMUM ASSIST WITH TRANSFER/A MBULATION/ ADLS GOALS MET 91.67
== END 2024-06-05 12:35 | disposition home or self-care (01) ==
PROVIDERS: Emergency Provider Internal Medicine Critical Care Medicine; PCP Family Medicine
DX: U07.1 COVID-19 (principal); J06.9 Acute upper respiratory infection, unspecified; I10 Essential (primary) hypertension; E78.5 Hyperlipidemia, unspecified; Z79.891 Long term (current) use of opiate analgesic
CPT/HCPCS: 36415; 70450; 71045; 80053; 83605; 83690; 84484; 85025; 85652; 87637; 99284

== ENCOUNTER 2024-11-17 11:48 | Outpatient (CLI) | payer MEDICARE, MEDICAID, SELFPAY ==
--- NOTE | ~2024-11-17 | XR_ITS ---
AP view of the pelvis and AP and lateral views of the bilateral hips Clinical history: Pain Findings: No acute fracture or dislocation is seen. Osseous alignment is anatomic. Moderate degenerat deisi change of the both hip joints is present, with bony productive change and joint space narrowing, right worse than left. Soft tissues are unremarkable. Impression: Mild degenerative change of both hips, right worse than left. Reviewed, dictated and finalized at location M. Impression: Mild degenerative change of both hips, right worse than left.
--- OUTSIDE RECORDS SUMMARY | 2024-11-17 12:00 | XMS_ITS | Clinical Summary ---
Author Organization [facility] Address [address] [facility] [address] [place] [address] Phone Care Team Providers Care Address Change Clerk Name Role Phone Provider, Not On File [...] 65 04/16/2017 12:47 PM CDT Temperature 36 C (96.8 F) 04/16/2017 2:58 PM CDT Respiratory Rate 18 04/16/2017 2:58 PM CDT Oxygen Saturation 100% 04/16/2017 2:58 PM CDT Inhaled Oxygen Concentration - - Weight 108.9 kg (240 lb) 04/16/2017 12:47 PM CDT Height 160 cm (5' 3) 04/16/2017 12:47 PM CDT Body Mass Index 42.51 04/16/2017 12:47 PM CDT Plan of Treatment Health Maintenance Due Date Last Done Comments TdaP Immunization 1940 Pneumococcal Immunization (50+ years) (2 of 2 - PCV) 06/23/2007 06/23/2006 Zoster Immunization (2 of 3) 08/18/2008 06/23/2008 Respiratory Syncytial Virus (RSV) Immunization (Adult) (1 - 1-dose 75+ series) 10/01/2015 Influenza Immunization (#1) 02/22/202406/23, 05/04/2020, 07/15/2016, Additional history exists SARS-COV-2 Immunization ( - season) 2024 07/12/2021, 09/19/2020, 08/29/2020 Pneumococcal Immunization [...] DETECTED NON DETECTED 03/03/2017 11:20 PM CDT [facility] Comment: IGM Antibodies to HAV not detected. Does not exclude early acute or recovered HAV infection. HEP B CORE AB (IGM) NON DETECTED NON DETECTED 03/03/2017 11:20 PM CDT [facility] Comment: IGM anti-HBC not detected. Does not exclude the possibility of exposure to or infection with HBV. HEPATITIS B SURFACE ANTIGEN NON DETECTED NON DETECTED 03/03/2017 11:20 PM CDT [facility] Comment: A nonreactive test result does [...] 0.13 <1 S/CO 03/03/2017 11:20 PM CDT [facility] Comment: Signal/Cutoff ratio < 0.79 is Nondetected Signal/Cutoff ratio 0.80-0.99 is Grayzone Signal/Cutoff ratio > 0.99 is Detected Supplemental assays are recommended if signal/cutoff ratio is >/=1.00. Signal/cutoff ratio result >/= 5.00 is 97% predictive of positivity for recombinant immunoblot assay (RIBA) and will be reported to the [place] Department of Public Health as required. Blood specimen (specimen) Venipuncture / Unknown 03/03/2017 10:47 AM CDT 03/03/2017 12:22 PM CDT us David Patel MD HEMATOLOGY ORDERABLES F inal Result [facility] [address] [place] [address], [place] from Last 3 Months or Most Recently Relevant to Health Maintenance Insurance MEDICARE MEDICAID [place] Advance Directives * Full Code (Latest Code Status on File) Date Activated Date Inactivated Comments 09/08/2015 4:55 PM 09/10/2015 3:27 PM Full Code: FULL ARREST: Attempt Resuscitation/CPR and use intubation and mechanical ventilation as indicated. PRE-ARREST: Use all measures to stabilize patient. Care Teams Address Change Clerk Relationship Specialty Start Date End Date Provider, Not On File [place] PCP - General 11/14/21
--- OUTSIDE RECORDS SUMMARY | 2024-11-17 12:00 | XMS_ITS | Clinical Summary ---
Author Organization [facility] Address [address] [place] [address] Care Team Providers Care Home Theater Specialist Name Role Phone Pierre Acuna Primary Care Provider [phone] Source Comments [facility],non-owned Affiliates and Associated Physician Practices is amultiple site organization consisting of ambulatory clinics and hospital sitesin [place], [place], [place] and [place]. This disclosure is being madepursuant to the Care Everywhere program and may not contain all information available regarding this patient. Last updated 18.[facility] Allergies Active Allergy Reactions Criticality Noted Date Comments Cristian Inhibitors Cough 01/05/2020 Cough Cough Clarithromycin Unknown 01/05/2020 Ezetimibe Unknown 01/05/2020 Hmg-Coa-R Inhibitors Unknown 01/05/2020 Medications * Be aware that medications may not be up to date on this document. Alwaysverify current medications with the patient. Apixaban (Eliquis DVT/PE Starter Pack) 5 MG [...] (one) tablet by mouth once daily Active HYDROcodone-cristian taminophen ([place]) 10-325 MG tabletIndicatio ns:Closed fracture of multiple ribs of left side, [...] mouth once daily 11/08/2023 Active vitamin D3 (Cholecalcifero l) 25 MCG (1000 UNITS) tablet Take 2 (two) tablets by mouth once daily 11/08/2023 Active ascorbic acid (Vitamin C) 500 MG tablet Take 1 (one) tablet by mouth once daily 11/08/2023 Active amLODIPine (Norvasc) 5 MG tablet TAKE ONE TABLET BY MOUTH ONCE DAILY 30 tablet 11/05/2023 Active lidocaine (Lidoderm) 5 % patch APPLY 2 PATCHES TO SKIN EVERY 24 HOURS. APPLY PATCH TO MOST PAINFUL AREA AND REMOVE AFTER 12 HOURS. MAY REAPPLY A NEW PATCH 12 HOURS LATER. 12 patch 11/05/2023 Active nystatin (Mycostatin) 080133 UNIT/GM powder APPLY TO AFFECTED AREA 2 TIMES A DAY 15 g 11/05/2023 Active polyethylene glycol 3350 (Miralax) 17 GM/SCOOP powder MIX AND TAKE 1 CAPFUL (17 GM) BY MOUTH ONCE DAILY 238 g 11/05/2023 Active levothyroxine (Synthroid) 75 MCG tablet TAKE ONE TABLET BY MOUTH ONCE DAILY 30 tablet 11/05/2023 Active Active Problems Problem Noted Date Diagnosed Date Papules 11/07/2023 Acute traumatic pain 11/03/2023 Scalp laceration 11/03/2023 Trauma 11/02/2023 Other closed fracture of tho racic vertebra, unspecified thoracic vertebral level, initial encounter 11/02/2023 Closed fracture of multiple ribs of left side, initial encounter 11/02/2023 Allergies 11/01/2023 Immunizations Immunization Administration Dates Next Due TDAP (7yrs+) 11/01/2023 [...] and heating? Not hard at all 11/03/2023 [facility] [place] of Occupat ional Health - Occupational Stress [...] in a halfway (including now)? 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 Gender Identity Not on file Sexual Orientation Not on file Last Filed Vital Signs Vital Sign Reading Time Taken Comments Blood Pressure 161/87 01/12/2024 10:33 AM CDT Pulse 59 01/12/2024 10:33 AM CDT Temperature 36.1 C (97 F) 01/12/2024 10:33 AM CDT Respiratory Rate 18 11/08/2023 4:36 PM CDT Oxygen Saturation 93% 01/12/2024 10: 33 AM CDT Inhaled Oxygen Concentration 21% 11/06/2023 7 :20 PM CDT Weight 123.6 kg (272 lb 6.4 oz) 024 10:33 AM CDT Height 160 cm (5' 3) 01/12/2024 10:33 AM CDT Body Mass Index 48.25 01/12/2024 10:33 AM CDT Plan of Treatment Health Maintenance Due Date Last Done Comments BONE DENSITY TESTING 1940 MEDICARE AWV 12 MONTHS 1940 PNEUMOCOCCAL VACCINE 50+ (1 of 1 - PCV) 1990 ZOSTER VACCINE (1 of 2) 1990 Respiratory Syncytial Virus (RSV) Vaccine Pt: or over 60 yrs (1 - 1-dose 75+ series) 10/01/2015 COVID-19 VACCINE ( - season) 2024 06/02/2023, 07/12/2021, 09/19/2020, Additional history exists DEPRESSION SCREENING 06/23/2024 INFLUENZA VACCINE (Season Ended) 2025 05/22/2023, 07/02/2021, 05/04/2020, Additional history exists DTAP/TDAP/TD VACCINES [...] patient's age to complete this topic MENINGOCOCCAL (Group B) VACCINE SHARED DECISION-MAKING Aged Out No longer eligible based on patient's age to complete this topic MENINGOCOCCAL GROUPS A/C/Y/W VACCINE Aged Out No longer eligible based on patient's age to complete this topic Insurance MEDICARE [facility] MEDICAID - OUT OF [facility] MEDICARE [place] [address] MEDICAID - [place] Advance Directives * Full Code (Latest Code Status on File) Date Activated Date Inactivated Comments 11/02/2023 1:41 AM 11/08/2023 6:46 PM Care Teams Home Theater Specialist Relationship Specialty Start Date End Date Pierre Acuna DO [address] [place] [id number] PCP - General Family Medicine 11/02/23
== END 2024-11-17 11:49 | disposition home or self-care (01) ==
LOC: CHSIMG 11:58
PROVIDERS: PCP Family Medicine; Visit Provider Family Medicine
DX: M25.552 Pain in left hip (principal); M25.551 Pain in right hip
CPT/HCPCS: 73521

== ENCOUNTER 2025-02-17 13:15 | Outpatient (CLI) | payer MEDICARE, MEDICAID, SELFPAY ==
--- NOTE | ~2025-02-17 | XR_ITS ---
EXAMINATION: XR chest 2V 02/17/2025 13:44 INDICATION: Chronic cough PROCEDURE: 2 view chest COMPARISON: Comparison to multiple prior studies sequentially, with oldest reviewed study dated 09/08/2015. FINDINGS: The lungs are clear. The cardiomediastinal silhouette is within normal limits. There are no pleural effusions. There is no pneumothorax suspected. There is a partially calcified right breast implant. There are calcified granulomas of the lungs. There is atherosclerosis of the aorta with e ctasia. IMPRESSION: 1: NO ACUTE CARDIOPULMONARY DISEASE. Reviewed, dictated and finalized at location O.
--- OUTSIDE RECORDS SUMMARY | 2025-02-17 13:26 | XMS_ITS | Clinical Summary ---
Author Organization [facility] Address [address] [place] [address] Care Team Providers Care Roll Wrapper Name Role Phone Pierre Acuna DO Unavailable [phone] Pierre Acuna DO Primary Care Provider [phone] Krys Jules MD Unavailable [phone] Hayley Pan ANP- Unavailable [phone] Allergies Active Allergy Reactions Criticality Noted Date [...] mEq total) by mouth daily. 01/28/2022 Active famotidine (PEPCID) 20 MG tablet Take [...] (81 mg total) by mouth daily. Active irbesartan (AVAPRO) 150 MG tablet TAKE ONE TABLET BY MOUTH IN THE MORNING 90 tablet 3 06/01/2023 Active amLODIPine (NORVASC) 10 MG tablet Take 1 tablet (10 mg total) by mouth daily. Take 1/2 tab by mouth daily for three days, then take 1 tab daily 90 tablet 3 09/09/2024 Active metoprolol succinate ER (TOPROL-XL) 25 MG 24 hr tablet Take 1 tablet (25 mg total) by mouth daily. 90 tablet 3 09/09/2024 Active COMPRESSION STOCKINGS, DME,Indications :Localized edema B/L Knee High 15-20 mmHg Dx: I83.893 1 Package 2 09/09/2024 Active furosemide (LASIX) 40 MG tablet TAKE 1 TABLET BY MOUTH EVERY DAY 30 tablet 11 09/10/2024 Active Active Problems Problem Noted Date Diagnosed Date Anticoagulated 09/07/2024 Morbid (severe) obesity due to excess calories 0 09/07/2024 Body mass index (BMI) 45.0-49.9, adult Localized edema 06/29/2023 Hypertension GERD (gastroesophageal reflux disease) History of DVT (deep vein thrombosis) Pulmonary embolism ([facility]) Other hyperlipidemia Resolved Problems Problem Noted Date Diagnosed Date Resolved Date Generalized edema 02/01/2020 06/29/2023 DVT (deep venous thrombosis) ([facility]) 06/29/2023 Family History Medical History Relation Comments [...] Information Value Date Recorded Sex Assigned at Female 09/07/2024 10:01 AM CDT Legal Sex Female 5:57 PM SPACE OFFICER Gender Identity Not on file Sexual Orientation Not on file Last Filed Vital Signs Vital Sign Reading Time Taken Comments Blood Pressure 153/48 09/07/2024 11:20 AM CDT re check raeann Pulse 52 09/07/2024 11:18 AM CDT Temperature 36.7 C (98 F) 01/03/2020 2:21 PM CDT Respiratory Rate 16 09/07/2024 11:18 AM CDT Oxygen Saturation 96% 09/07/2024 11:18 AM CDT Inhaled Oxygen Concentration - - Weight 118.4 kg (261 lb) 09/07/2024 11:18 AM CDT Height 160 cm (5' 3) 09/07/2024 11:18 AM CDT Body Mass Index 46.23 09/07/2024 11:18 AM CDT Plan of Treatment Upcoming Encounters Date Type Department Care Team (Late st Contact Info) Description 08/23/2025 8:00 AM SPACE OFFICER Appointment [facility] [address] [place] [address] Tom Patrick MD [address] [address] 08/30/2025 9:00 AM CDT Office Visit [facility] [address] [place] [id number] Tom Patrick MD [address] [facility] [address] [place] [address] Health Maintenance Due Date Last Done Comments Annual Medicare Wellness Visit 2005 Dexa Scan (General) 2005 Pneumococcal Vaccine: 50+ Years (2 of 2 - PCV) 06/23/2007 06/23/2006 Zoster Vaccines (2 of 3) 08/18/2008 06/23/2008 RSV Immunization or 60+ Years (1 - 1-dose 75+ series) 10/01/2015 COVID-19 Vaccine (1 - 2023-2 5 season) 2024 DTaP, Tdap and Td Vaccines ( 2 - Td or Tdap) 10/31/2033 11/01/2023, 06/23/2006 Meningococcal B Vaccine Aged Out No l onger eligible based on patient's age to complete this topic Meningococcal Vaccine Aged Out No torres ariel eligible based on patient's age to complete this topic RSV Immunizations Under 20 Months Aged Out No longer eligible b ased on patient's age to complete this topic Insurance MEDICAID AETNA [facility] AETNA Care Teams Roll Wrapper Relationship Specialty Start Date End Date Pierre Acuna DO [address] [place] [address] PCP - General FAMILY PRACTICE 01/03/20 Pierre Acuna DO [address] [place] [address] FAMILY PRACTICE 12/03/19 Krys Jules MD [address] [place] [address] INTERVENTIONAL CARDIOLOGY 10/15/[address] [facility] [address] [place] [address] Nurse Practitioner NURSE PRACTITIONER ADULT HEALTH 10/15/23
--- OUTSIDE RECORDS SUMMARY | 2025-02-17 13:26 | XMS_ITS | Clinical Summary ---
Author Organization [facility] Address [address] [facility] [address] [place] [address] Phone Care Team Providers Care Baseball Club Manager Name Role Phone Provider, Not On [...] (Adult) (1 - 1-dose 75+ series) 10/01/2015 SARS-COV-2 Immunization (4 - season) 2024 07/12/2021, 09/19/2020, 08/29/2020 Influenza Immunization (#1) 02/21/202506/23, 05/04/2020, 07/15/2016, Additional history exists Pneumococcal Immunization Combined Discontinued 06/23/2006 Hepatitis C Virus (HCV) Screening Completed 03/03/2017 Hepatitis B Immunization Aged Out No longer eligible based on patient's age to complete this topic Human Papillomavirus (HPV) Immunization Aged Out No longer eligible based [...] DETECTED NON DETECTED 03/03/2017 11:20 PM CDT [facility] Comment: IGM Antibodies to HAV not detected. Does not exclude early acute or recovered HAV infection. HEP B CORE AB (IGM) NON DETECTED NON DETECTED 03/03/2017 11:20 PM CDT [facility] Comment: IGM anti-HBC not detected. Does not exclude the possibility of exposure to or infection with HBV. HEPATITIS B SURFACE ANTIGEN NON DETECTED NON DETECTED 03/03/2017 11:20 PM CDT [facility] Comment: A nonreactive test result does [...] 0.13 <1 S/CO 03/03/2017 11:20 PM CDT [facility] Comment: Signal/Cutoff ratio < 0.79 is Nondetected Signal/Cutoff ratio 0.80-0.99 is Grayzone Signal/Cutoff ratio > 0.99 is Detected Supplemental assays are recommended if signal/cutoff ratio is >/=1.00. Signal/cutoff ratio result >/= 5.00 is 97% predictive of positivity for recombinant immunoblot assay (RIBA) and will be reported to the [place] Department of Public Health as required. Blood specimen (specimen) Venipuncture / Unknown 03/03/2017 10:47 AM CDT 03/03/2017 12:22 PM CDT us David Patel MD HEMATOLOGY ORDERABLES F inal Result [facility] [address] [place] [address], [place] from Last 3 Months or Most Recently Relevant to Health Maintenance Insurance MEDICARE MEDICAID [place] Advance Directives * Full Code (Latest Code Status on File) Date Activated Date Inactivated Comments 09/08/2015 4:55 PM 09/10/2015 3:27 PM Full Code: FULL ARREST: Attempt Resuscitation/CPR and use intubation and mechanical ventilation as indicated. PRE-ARREST: Use all measures to stabilize patient. Care Teams Baseball Club Manager Relationship Specialty Start Date End Date Provider, Not On File [place] PCP - General 11/14/21
--- OUTSIDE RECORDS SUMMARY | 2025-02-17 13:26 | XMS_ITS | Clinical Summary ---
Author Organization [facility] Address [address] [place] [address] Care Team Providers Care Fine Grader Name Role Phone Pierre Acuna Primary Care Provider [phone] Source Comments [facility],non-owned Affiliates and Associated Physician Practices is amultiple site organization consisting of ambulatory clinics and hospital sitesin [place], [place], [place] and [place]. This disclosure is being madepursuant to the Care Everywhere program and may not contain all information available regarding this patient. Last updated 18.[facility] Allergies Active Allergy Reactions Criticality Noted Date [...] by mouth once daily Active HYDROcodone-cristian taminophen ([place]) 10-325 MG tabletIndicatio ns:Closed fracture of multiple [...] LATER. 12 patch 11/05/2023 Active nystatin (Mycostatin) 593663 UNIT/GM powder APPLY TO AFFECTED AREA 2 [...] hard at all 11/03/2023 [facility] of Occupat ional Health - Occupational Stress [...] place to sleep or slept in a [place] health care facility (including now)? 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 Gender Identity Not on file Sexual [...] history exists DEPRESSION SCREENING 06/23/2024 INFLUENZA VACCINE (#1) 2025 3, 07/02/2021, 05/04/2020, Additional history exists DTAP/TDAP/TD [...] age to complete this topic Insurance MEDICARE [facility] MEDICAID - OUT OF [facility] MEDICARE [place] [address] MEDICAID - [place] Advance Directives * Full Code (Latest Code Status on File) Date Activated Date Inactivated Comments 11/02/2023 1:41 AM 11/08/2023 6:46 PM Care Teams Fine Grader Relationship Specialty Start Date End Date Pierre Acuna DO [address] [place] [id number] PCP - General Family Medicine 11/02/23
== END 2025-02-17 13:16 | disposition home or self-care (01) ==
PROVIDERS: PCP Family Medicine; Visit Provider Family Medicine
DX: R05.3 Chronic cough (principal)
CPT/HCPCS: 71046